=== PATIENT | female | born 1990 | race Caucasian/White ===

== ENCOUNTER → 2024-03-23 | Outpatient (CLI) | payer OTHER, SELFPAY ==
[2024-03-23 10:30] LABS: Erythrocyte Sedimentation Rate 1 mm/hr (0-30)
[2024-03-23 10:33] LABS: Absolute Lymphocyte Count 1.89 X10^3/uL (0.83-4.51); Absolute Neutrophil Count 2.6 X10^3/uL (2.0-7.7); Basophil# 0.03 X10^3/uL; Basophil% 0.6 % (0-1); Eosinophil# 0.04 X10^3/uL; Eosinophils% 0.8 % (0-5); Hemoglobin 13.7 g/dL (12.0-15.0); Lymphocyte # 1.89 X10^3/ul (0.83-4.51); Lymphocyte % 38.8 % (19-41); Mean Corp Hgb Conc 33.4 g/dL (32-36); Mean Corpuscular Hgb 28.5 pg (27.0-32.0); Mean Corpuscular Volume 85.4 fL (81-99); Mean Platelet Vol. 9.3 fl (6.2-12.0); Monocyte# 0.29 X10^3/uL; NRBC Flagged by Analyzer 0 % (0-5); Neutrophil # 2.61 X10^3/uL (2.7-7.7); Neutrophil % 53.6 % (47-70); Platelet Count 303 K/mm3 (150-450); RBC Distribution Width CV 12.4 % (11.6-14.6); RBC Distribution Width SD 38.5 fl (35.1-43.9); White Blood Count 4.9 K/mm3 (4.4-11.0)
[2024-03-23 11:32] LABS: ALB/GLOB Ratio 1.2 RATIO (0.9-2.4); AST(SGOT) 11 U/L (15-37); Alanine Aminotransfer ALT/SGPT 29 U/L (13-56); Albumin, Serum 3.9 g/dL (3.2-5.0); Alkaline Phosphatase 47 U/L (45-117); Anion Gap 8 (5-15); BUN 10 mg/dL (7-18); BUN/Creat Ratio 12.3 RATIO (10-20); CRP < 2.90 mg/L (0.0-3.0); Calcium,Total 9.2 mg/dL (8.5-10.1); Chloride 109 mmol/L (98-107); Creatinine, Serum 0.81 mg/dL (0.55-1.02); EST Glomerular Filtration Rate 87 mL/min (>60); Est Glom Filt Rate - Afr Amer 105 mL/min (>60); Free T3 3.2 pg/mL (2.18-3.98); Globulin 3.3 g/dL (2.2-4.2); Glucose 103 mg/dL (74-106); LDH 169 U/L (84-246); Potassium 4.1 mmol/L (3.5-5.1); Protein, Total 7.2 g/dL (6.4-8.2); Sodium Level 139 mmol/L (136-145); T4 Free Direct 1.16 ng/dL (0.76-1.46)
[2024-03-26 17:08] LABS: ACCA 11 units (0-90); ALCA 4 units (0-60); AMCA 3 units (0-100); Albumin 3.9 g/dL (2.9-4.4); Alpha-1-Globulins 0.2 g/dL (0.0-0.4); Alpha-2-Globulins 0.7 g/dL (0.4-1.0); Cytoplasmic Ab (C-ANCA) <1:20 titer (Neg:<1:20); Endomysial Antibody IgA Negative (Negative); Gamma Globulin 0.8 g/dL (0.4-1.8); Immunoglobulin A 174 mg/dL (87-352); Immunoglobulin E 8 IU/mL (6-495); Immunoglobulin G 876 mg/dL (586-1602); Immunoglobulin M 96 mg/dL (26-217); PROEL- TOTAL PROTEIN 6.6 g/dL (6.0-8.5); Perinuclear Ab (P-ANCA) <1:20 titer (Neg:<1:20); gASCA 24 units (0-50); t-Transglutaminase IgA <2 U/mL (0-3)
[2024-03-27 10:14] LABS: Anti-Centromere B Ab <0.2 AI (0.0-0.9); Anti-Chromatin <0.2 AI (0.0-0.9); Anti-Jo <0.2 AI (0.0-0.9); Anti-Scleroderma-70 AB <0.2 AI (0.0-0.9); Anti-dsDNA Ab 1 IU/mL (0-9); Beef <0.10 kU/L (Class 0); Chocolate <0.10 kU/L (Class 0); Codfish <0.10 kU/L (Class 0); Corn <0.10 kU/L (Class 0); Egg, Whole <0.10 kU/L (Class 0); Milk (Cow) <0.10 kU/L (Class 0); Mussels <0.10 kU/L (Class 0); Peanut <0.10 kU/L (Class 0); Pork <0.10 kU/L (Class 0); RNP Ab <0.2 AI (0.0-0.9); SJOGREN'S Anti-SS-A test < 0.2 AI (0.0-0.9); SJOGREN'S Anti-SS-B test < 0.2 AI (0.0-0.9); Salmon <0.10 kU/L (Class 0); Shrimp <0.10 kU/L (Class 0); Smith Ab <0.2 AI (0.0-0.9); Soybean <0.10 kU/L (Class 0); Tuna <0.10 kU/L (Class 0); Wheat <0.10 kU/L (Class 0)
== END | disposition home or self-care (01) ==
LOC: VSLAB 08:40
PROVIDERS: PCP Family Medicine
DX: K58.9 Irritable bowel syndrome, unspecified (principal); K63.8219 Small intestinal bacterial overgrowth, unspecified
CPT/HCPCS: 36415; 80053; 82784; 82785; 83516; 83615; 84165; 84439; 84443; 84481; 85025; 85652; 86003; 86005; 86036; 86140; 86225; 86235; 86255; 86256; 86334; 86671

== ENCOUNTER → 2024-03-24 | Outpatient (CLI) | payer OTHER, SELFPAY ==
[2024-03-29 03:13] LABS: Giardia Lamblia, Stool EIA Negative (Negative); Pancreatic Elastase, Fecal > 800 (>200)
[2024-04-02 19:07] LABS: Calprotectin, Stool 9 ug/g (0-120); Fats, Neutral Normal (.); Fats, Total Increased (.)
== END | disposition home or self-care (01) ==
LOC: MFPLAB 08:03
PROVIDERS: PCP Family Medicine
DX: K58.9 Irritable bowel syndrome, unspecified (principal); K63.8219 Small intestinal bacterial overgrowth, unspecified
CPT/HCPCS: 82653; 82705; 83630; 83993; 87329; 87506

== ENCOUNTER → 2024-05-12 | Outpatient (CLI) | payer OTHER, SELFPAY | END | disposition home or self-care (01) | LOC: LABSPEC 15:02 | PROVIDERS: PCP Family Medicine; Referring Provider Nurse Practitioner Women's Health; Visit Provider Nurse Practitioner Women's Health | DX: N89.8 Other specified noninflammatory disorders of vagina (principal) | CPT/HCPCS: 87070; 87205 ==

== ENCOUNTER → 2024-05-18 | Outpatient (CLI) | payer OTHER, SELFPAY ==
--- NOTE | 2024-05-18 11:07 | NM_ITS ---
CLINICAL: 33-year-old female with history of early satiety. SEMI-SOLID PHASE 99m Tc SULFUR COLLOID GASTRIC EMPTYING STUDY COMPARISON: None available FINDINGS: The patient was administered 1.1 mCi of 99m Tc sulfur colloid mixed with oatmeal and consumed per os. Image acquisitions in the anterior-posterior projections were obtained for 60 minutes. There is prompt visualization of the stomach. There is no gastroesophageal reflux identified. The T ? linear fit was calculated to be 55.78 minutes, (Normal: 12-56 minutes). NM/Gastric Emptying Study IMPRESSION: 1. UPPER LIMITS OF NORMAL 99m Tc sulfur colloid semi-solid phase (oatmeal) gastric emptying imaging examination. A. There is normal semi-solid phase gastric emptying compared to normal controls. (Graeme et al, J Nucl Med Tech 38: 186, 2010). Electronically Signed: Peter Ritter DO at 7:47 EST ,
--- OUTSIDE RECORDS SUMMARY | 2024-05-18 11:32 | XMS RPT_ITS | CCD ---
Author Organization [facility] Care Team Providers Care Restaurant Shift Leader Name Role Phone Kartik, Nelly Unavailable Unavailable No Doctor Assigned, Nodr Unavailable Unavail able Kartik, Nelly Unavailable Unavailable No Doctor Assigned, Nodr Unavailable Unavail able Kartik, Nelly Unavailable Unavailable No Doctor Assigned, Nodr Unavailable Unavail able Kartik, Nelly Unavailable Unavailable Kartik, Nelly Unavailable Unavailable No Doctor Assigned, Nodr Unavailable Unavail able Kartik, Nelly Unavailable Unavailable No Doctor Assigned, Nodr Unavailable Unavail able Kartik, Nelly Unavailable Unavailable Kartik, Nelly Unavailable Unavailable No Doctor Assigned, Nodr Unavailable Unavail able Kartik, Nelly Unavailable Unavailable Kartik, Nelly Unavailable Unavailable No Doctor Assigned, Nodr Unavailable Unavail able Kartik, Nelly Unavailable Unavailable No Doctor Assigned, Nodr Unavailable Unavail able Kartik, Nelly Unavailable Unavailable No Doctor Assigned, Nodr Unavailable Unavail able Kartik, Nelly Unavailable Unavailable Kartik, Nelly Unavailable Unavailable No Doctor Assigned, Nodr Unavailable Unavail able Kartik, Nelly Unavailable Unavailable Kartik, Nelly Unavailable Unavailable No Doctor Assigned, Nodr Unavailable Unavail able Kartik, Nelly Unavailable Unavailable No Doctor Assigned, Nodr Unavailable Unavail able Kartik, Nelly Unavailable Unavailable No Doctor Assigned, Nodr Unavailable Unavail able Kartik, Nelly Unavailable Unavailable No Doctor Assigned, Nodr Unavailable Unavail able Kartik, Nelly Unavailable Unavailable No Doctor Assigned, Nodr Unavailable Unavail able Kartik, Nelly Unavailable Unavailable No Doctor Assigned, Nodr Unavailable Unavail able Kartik, Nelly Unavailable Unavailable Kartik, Nelly Unavailable Unavailable No Doctor Assigned, Nodr Unavailable Unavail able Kartik, Nelly Unavailable Unavailable No Doctor Assigned, Nodr Unavailable Unavail able Kartik, Nelly Unavailable Unavailable Kartik, Nelly Unavailable Unavailable No Doctor Assigned, Nodr Unavailable Unavail able Kartik, Nelly Unavailable Unavailable No Doctor Assigned, Nodr Unavailable Unavail able No Doctor Assigned, Nodr Unavailable Unavail able Kartik, Nelly Unavailable Unavailable Kartik, Nelly Unavailable Unavailable Kartik, Nelly Unavailable Unavailable No Doctor Assigned, Nodr Unavailable Unavail able Katrin Pearson Primary Care Provider Carole Mancuso Unavailable Unavailable None, No PCP Unavailable Unavailable None, No PCP Unavailable Unavailable Unavailable Unavailable Carole Mancuso DO Unavailable Unavailable None, No PCP Unavailable Unavailable [place] Katrin RUSSELL Primary Care Provider Unavailable Unavailable Ms. Jackie Mattson Attending Unavaila ble PCP, Pt States None Referring Unavailable CELE HENRYM, NUMERICAL CONTROL TOOL PROGRAMMER NIKKI DHAVAL Attending Unava ilable FRIED, CNM, NUMERICAL CONTROL TOOL PROGRAMMER NIKKI DHAVAL Referring Unava ilable FRIED, CNM, NUMERICAL CONTROL TOOL PROGRAMMER NIKKI DHAVAL Attending Unava ilable FRIED CNM, NUMERICAL CONTROL TOOL PROGRAMMER NIKKI DHAVAL Referring Unava ilable MICHELE THORNTON Attending Unavailable PCP, Pt States None Referring Unavailable Silvano Andino MD Mounir Primary Care Pro vider Unavailable Primary Care Provider UnavailNIKKI Muñiz Attending Unavailable SANJAY, SILVANO RDAHA MOUNIR Primary Care Kemi vailable SANJAY, SILVANO RADHA MOUNIR Referring Kemi vailable SANJAY, SILVANO RADHA MOUNIR Primary Care Kemi vailable SANJAY, SILVANO RADHA MOUNIR Admitting Kemi vailable Lengl DENVERC, Dell Benjamín Unavailable SANJAY, SILVANO H Primary Care Unavailable CONI LERNER Attending Unavailable SANJAY, SILVANO H Primary Care Unavailable ABBY SRINIVASAN Attending Unavailable SANJAY, SILVANO RADHA MOUNIR Primary Care Kemi vailable JACKIE WOODALL Attending Unavailable SANJAY, SILVANO RADHA MOUNIR Primary Care Kemi vailable SANJAY, SILVANO RADHA MOUNIR Attending Kemi vailable SANJAY, SILVANO RADHA MOUNIR Primary Care Kemi vailable SANJAY, SILVANO RADHA MOUNIR Attending Kemi vailable SANJAY, SILVANO RADHA MOUNIR Attending Kemi vailable SANJAY, SILVANO RADHA MOUNIR Primary Care Kemi vailable SANJAY, SILVANO RADHA MOUNIR Attending Kemi vailable SILVANO ANDINO Primary Care Kemi vailable JACKIE WOODALL Attending Unavailable SILVANO ANDINOUNRACQUEL Primary Care Kemi vailable SILVANO ANDINO Attending Kemi vailable SILVANO ANDINO Primary Care Kemi vailable Allergies Allergy Classification Reported Allergen(s) Allergy Type Date of Onset Reaction(s) Facility Amoxicillin / Clavulanate (3 sources) Amoxicillin / Clavulanate; Translations: [Augmentin] Drug Allergy 0 Diarrhea [facility] (7 sources) amoxicillin / clavulanate; Translations: [Augmentin] Drug Allergy Diarrhea [facility] (1 source) No Known Allergies; Translations: [No Known Allergies] Propensity to adverse reactions to drug (disorder) [facility] (19 sources) Amoxicillin / Clavulanate; Translations: [AMOXICILLIN-POT CLAVULANATE] Drug Allergy 0 Diarrhea [facility] Medications Current Medications Medication Drug Class(es) Dates Sig (Normalized) Sig (Original) clotrimazole 10 mg/ml topical cream (10 sources) Azole Antifungal Start: 09-18-2023 End: 09-17-2024 clotrimazole (LOTRIMIN) 1 % cream Indications: Vaginal discharge Apply topically 2 (two) times a day . 30 g 09/18/2023 09/17/2024 Active 21 day ethinyl estradiol 0.503728 mg/hr / etonogestrel 0.005 mg/hr vaginal system (11 sources) Progestin, Estrogen Start: 10-20-2023 End: 10-19-2024 etonogestreL-ethiny l estradioL (NUVARING) 0.12-0.015 mg/24 hr vaginal ring Indications: control counseling Insert vaginally and leave in place for 3 consecutive weeks, then remove for 1 week. . 1 each 12 10/20/2023 10/19/2024 Active Start: 06-17-2019 End: 07-24-2021 etonogestrel-ethinyl estradi ol (NUVARING) 0.12-0.015 mg/24 hr vaginal ring Indications: control counseling Insert vaginally and leave in place for 3 consecutive weeks, then remove for 1 week. . 3 each 3 06/17/2019 07/24/2021 Discontinued Ethinyl Estradiol / Ferrous fumarate / Norethindrone (13 sources) Estrogen Start: 06-17-2023 take 1 tablet by mouth once daily norethindrone-e.estradioL-iron (Lo Loestrin Fe) 1 mg-10 mcg (24)/10 mcg (2) tablet Indications: Encounter for surveillance of contraceptive pills Take 1 tablet by mouth once daily. 28 tablet 11 06/17/2023 Active Start: 02-20-2023 Lo Loestrin Fe 1 mg-10 mcg (24)/10 mcg (2) Tab 02/20/2023 Active Start: 02-20-2023 take 1 tablet by shade th once daily Lo Loestrin Fe 1 mg-10 mcg (24)/10 mcg (2) tablet Take 1 tablet by mouth once daily. 0 02/20/2023 Active Start: 02-20-2023 Lo Loestrin Fe 1 mg-10 mcg (24)/10 mcg (2) Tab Ethinyl Estradiol / norgestimate (4 sources) Progestin, Estrogen Start: 02-09-2024 take 1 tablet by mouth once daily norgestimate-ethinyl estradioL (Rts-Ch-Zlfxlmkr) 0.18/0.215/0.25 mg-25 mcg per tablet Take 1 (one) tablet by mouth daily . 30 tablet 11 02/09/2024 Active Start: 12-09-2023 End: 02-07-2024 take 1 tablet by mouth once daily norgestimate-ethinyl estradioL (Xkg-Rt-Tnetinau) 0.18/0.215/0.25 mg-25 mcg per tablet Take 1 (one) tablet by mouth daily . 30 tablet 1 12/09/2023 02/07/2024 Discontinued (Reorder (Suppress CancelRx Message to Pharmacy)) Start: 12-09-2023 take 1 tablet by shade th once daily norgestimate-ethinyl estradioL (Ecz-Fv-Avfeland) 0.18/0.215/0.25 mg-25 mcg per tablet Take 1 (one) tablet by mouth daily . 30 tablet 1 12/09/2023 Active Start: 11-13-2023 End: 12-06-2023 take 1 tablet by mouth once daily norgestimate-ethinyl estradioL (Fwg-Fy-Gjkefrny) 0.18/0.215/0.25 mg-25 mcg per tablet Take 1 (one) tablet by mouth daily . 30 tablet 1 11/13/2023 12/06/2023 Discontinued (Reorder (Suppress CancelRx Message to Pharmacy)) sertraline 25 mg oral tablet (4 sources) Serotonin Reuptake Inhibitor Start: 07-24-2021 End: 03-23-2022 take 1 tablet by mouth once daily sertraline (ZOLOFT) 25 MG tablet Indications: Anxiety with depression Take 1 (one) tablet (25 mg total) by mouth daily . 90 tablet 1 09/24/2021 03/23/2022 Active Completed/Discontinued Medications Medication Drug Class(es) Dates Sig (Normalized) Sig (Original) docusate sodium 100 mg oral capsule (3 sources) Start: 03-01-2020 take 1 capsule by mouth twice daily as needed Docusate Sodium 100 MG Oral Capsule TAKE 1 CAPSULE TWICE DAILY NEEDED. Quantity: 60 Refills: 6 [place] DOCarole Start : 01-Mar-2020 Active drospirenone / Ethinyl Estradiol (2 sources) Progestin, Estrogen End: 09-18-2023 take 1 tablet by mouth once daily, then take 3 tablets by mouth once drospirenone-ethiny l estradioL (SHAI) 3-0.03 mg per tablet Take 1 (one) tablet by mouth daily . 0 09/18/2023 Discontinued hydrocortisone 25 mg/ml topical cream (1 source) Corticosteroid Start: 10-29-2022 End: 05-02-2023 hydrocortisone (ANUSOL-HC) 2.5 % rectal cream Indications: Hemorrhoids, unspecified hemorrhoid type Insert into the rectum 2 (two) times a day . 30 g 0 10/29/2022 05/02/2023 Discontinued levonorgestrel 0.131187 mg/hr intrauterine system (8 sources) Progestin, Progestin-containin g Intrauterine Device Liletta (52 MG) 19.5 MCG/DAY IUD Quantity: 0 Refills: 0 Ordered: 15-Dec-2020 DO Active levonorgestreL ( LILETTA) 20.1 mcg/24 hrs (6 yrs) 52 mg IUD IUD 1 each by Intrauterine route once . 0 Active ondansetron 4 mg oral tablet (3 sources) Serotonin-3 Receptor Antagonist Start: 03-29-2020 take 1 tablet by mouth every six hours as needed for nausea Ondansetron HCl - 4 MG Oral Tablet TAKE 1 TABLET Every 6 hours PRN nausea Quantity: 20 Refills: 3 , Carole Start : 29-Mar-2020 Active PNV Plus Multivitamin 27-1 MG Oral Tablet (1 source) Start: 03-01-2020 take 1 tablet by mouth once daily PNV Plus Multivitamin 27-1 MG Oral Tablet TAKE 1 TABLET DAILY. Quantity: 30 Refills: 11 , Start : 01-Mar-2020 Active PNV Plus Multivitamin 27-1 MG TABS (2 sources) Start: 03-01-2020 PNV P hossein Multivitamin 27-1 MG TABS TAKE 1 TABLET DAILY. Quantity: 30 Refills: 11 Start : 01-Mar-2020 Active PNV Plus Multivitamin TABS (2 sources) PNV Plu s Multivitamin TABS Refills: 0 Active PNV Plus Multivitamin TABS (1 source) PNV Plu s Multivitamin TABS Refills: 0 DO Active Problems Active Problems Problem Classification Problem Date Documented Da te Episodic/Chronic Acute bronchitis (2 sources) Acute bronchitis, unspecified; Translations: [Acute bronchitis, unspecified] Onset: 02-09-2024 Episodic Other complications of (3 sources) Placental abnormality; Translations: [Abnormal placental ultrasound] Episodic Other complications of (3 sources) Nausea and vomiting; Translations: [Unspecified vomiting of , unspecified as to episode of care or not applicable] Episodic Other female genital disorders (12 sources) Pain in female genitalia on intercourse; Translations: [Unspecified dyspareunia] Onset: 09-18-2023 09-18-2023 Chronic Other female genital disorders (2 sources) Unspecified dyspareunia; Translations: [Unspecified dyspareunia] Onset: 09-18-2023 Chronic Other gastrointestinal disorders (8 sources) Chronic constipation; Translations: [Constipation, unspecified] Episodic Other non-traumatic joint disorders (3 sources) Pain in wrist; Translations: [Pain in joint, forearm] Episodic Other and delivery including normal (14 sources) Delivery normal; Translations: [ care status] Episodic Comment on above: 10/03/2020-39 weeks, vaginal, male, #7 15oz 01/10/2018_40weeks_Female_7# 4oz; Other skin disorders (1 source) Skin tag; Translations: [Skin tag] Episodic Other upper respiratory infections (2 sources) Acute sinusitis, unspecified; Translations: [Acute sinusitis, unspecified] Onset: 02-18-2024 Episodic Residual codes; unclassified (1 source) Gestation period, 20 weeks; Translations: [20 weeks gestation of ] Episodic Residual codes; unclassified (1 source) Gestation period, 27 weeks; Translations: [ with 27 completed weeks gestation] Episodic Viral infection (6 sources) Other specified viral infection; Translations: [Disease caused by 2019nCoV] Episodic Past or Other Problems Problem Classification Problem Date Documented Date Episodic/Chronic Abdominal pain (13 sources) Abdominal discomfort; Translations: [Unspecified abdominal pain] Onset: 10-29-2022 10-29-2022 Episodic Administrative/social admission (18 sources) Multigravida; Translations: [Patient encounter status] Onset: 09-18-2023 09-18-2023 Episodic Anxiety disorders (20 sources) Mixed anxiety and depressive disorder; Translations: [Other specified anxiety disorders] Onset: 05-21-2019 Resolved: 10-29-2022 05-21-2019 Chronic Contraceptive and procreative management (15 sources) Intrauterine contraceptive device in situ; Translations: [Surveillance of intrauterine contraceptive device] Onset: 06-17-2019 06-17-2023 Episodic Comment on above: 11/28/2020; MICHEAL; E Codes: Natural/environment (16 sources) Insect bite - wound; Translations: [Bitten or stung by nonvenomous insect and other nonvenomous arthropods, initial encounter] Onset: 07-24-2021 Episodic Genitourinary symptoms and ill-defined conditions (2 sources) Other symptoms and signs involving the genitourinary system; Translations: [Other symptoms and signs involving the genitourinary system] Onset: 10-29-2022 Episodic Hemorrhoids (12 sources) Hemorrhoids; Translations: [Unspecified hemorrhoids] Onset: 10-29-2022 05-02-2023 Episodic Immunizations and screening for infectious disease (20 sources) Patient encounter status; Translations: [Screening examination for venereal disease] Onset: 06-17-2019 06-17-2019 Episodic Other and unspecified benign neoplasm (12 sources) Pigmented skin lesion ; Translations: [Melanocytic nevi, unspecified] Onset: 05-01-2023 05-01-2023 Episodic Other female genital disorders (12 sources) Vaginal discharge; Translations: [Other specified noninflammatory disorders of vagina] Onset: 09-18-2023 09-18-2023 Episodic Other female genital disorders (2 sources) Other specified noninflammatory disorders of vagina; Translations: [Other specified noninflammatory disorders of vagina] Onset: 09-18-2023 Episodic Other lower respiratory disease (12 sources) Rib pain; Translations: [Pleurodynia] Onset: 05-02-2023 05-02-2023 Episodic Other screening for suspected conditions (not mental disorders or infectious disease) (10 sources) Urine test negative; Translations: [ examination or test, negative result] Onset: 06-17-2023 06-17-2023 Episodic Residual codes; unclassified (1 source) Gestation period, 12 weeks; Translations: [ state, incidental] Episodic Unclassified (14 sources) Patient encounter status; Translations: [Routine gynecological examination] Onset: 05-17-2019 05-17-2019 Unclassified (8 sources) Finding of menstrual bleeding; Translations: [Menstruation] Comment on above: Onset age 15 years; NEGATED: Highlighted row has not occurred!Residual codes; unclassified (13 sources) Disease Episodic Results Test Name Value Interpretation Reference Range Facility Hepatitis B Surface Antigeno n 09-19-2023 HBV surface Ag Ql (S) Negative Negative [facility] Hepatitis B Surface antibody on 09-19-2023 HBV surface Ab Ql (S) Negative Negative [facility] Mumps Antibody, IgGon 2023 Interpretation and review of laboratory results Abnormal [facility] MuV IgG Ql (S) Positive Abnormal Negative [facility] Assay performed usin g Diasorin CLIA methodology. [facility] No Panel Informationon 09-18 Interpretation and review of laboratory results Normal [facility] Test performed using Nilsa BERTO immunoassay system [facility] Rubeola Antibody, IgGon MeV IgG Ql (S) Immune [facility] Assay performed usin gladys Diasorin CLIA methodology. [facility] Vaginitis DNA ProbesOrdered By: Radha Crowe on 09-19-2023 Ken sp DNA Probe+sig amp Ql (Vag fld) Negative Negative [facility] G. vaginalis DNA Probe+sig amp Ql (Vag fld) Negative Negative [facility] Interpretation and review of laboratory results Normal [facility] T. vaginalis DNA Probe+sig amp Ql (Vag fld) Refer to Trichomonas Amplified RNA Result Negative [facility] Cervical AND or Vaginal cyto logy studyon 06-17-2023 Cytology Cervical or vaginal smear or scraping study Pathology report.total SEE COMMENT Gynecologic Cytology Case: [id number] Authorizing Provider: Nikki Stevens MD Collected: 06/17/2023 1508 Ordering Location: [facility] Received: 06/17/2023 1508 Office Building First Screen: LO Rodriguez Pathologist: Ansley Woo MD Specimen: ThinPrep Liquid-Based Pap-Imaging System Screen, CERVIX, DIAGNOSTIC Cytology study comment SEE COMMENT Squamous and/or Glandular Abnormality A. THINPREP PAP CERVIX, DIAGNOSTIC - Specimen Adequacy Satisfactory for evaluation; endocervical/transformati on zone component is present General Categorization Epithelial cell abnormality- squamous cell, see interpretation. Descriptive Interpretation Atypical squamous cells of undetermined significance (ASC-US) - Cervix Laboratory comment SEE COMMENT Slide(s) initially screened by LO Rodriguez at [address] [id number] By the signature on this report, the individual or group listed as making the Final Interpretation/Diagnosis certifies that they have reviewed this case. This specimen has been analyzed by the [employer] Imaging System ([email or web address] an automated imaging and review system, which assists the laboratory in evaluating cells on ThinPrep Pap tests. Following automated imaging, selected trotter from every slide were reviewed by a senior javascript engineer and/or pathologist. Cervical cytology is a screening procedure primarily for squamous cancers and precursors and has associated false-negative and false-positives results as evidenced by published data. Your patient's test should be interpreted in this context, together with the patient's history and clinical findings. Regular sampling and follow-up of unexplained clinical signs and symptoms are recommended to minimize false negative results. LAB AP HPV HR Always (all interpretations) LAB AP HPV GENOTYPE QUESTION Yes Normal [facility] HPV 16 and 18 and 31+33+35+3 9+45+51+52+56+58+59+66+68 DNA Pnl (Cvx)on 06-17-2023 HPV 16 DNA JIM+probe Ql (Unsp spec) Negative Normal Negative [facility] Comment on above: Order Comment: Testi ng for high-risk (HR) types of human papilloma virus (HPV) is performed by the Nilsa berto HPV Test. The berto HPV Test is a qualitative polymerase chain reaction that amplifies DNA of HPV16, HPV18, and 12 other high-risk HPV types (31, 33, 35, 39, 45, 51, 52, 56, 58, 59, 66, and 68) associated with cervical cancer and its precursor lesions. A positive result indicates the presence of HPV DNA due to one or more of the 14 genotypes: 16, 18, 31, 33, 35, 39, 45, 51, 52, 56, 58, 59, 66, and 68. Negative results indicates HPV DNA concentrations are undectectable or below the pre-set threshold for detection. False negative results may be associated with unoptimized sampling. A negative HR HPV result does not exclude the possibility of future cytologic HSIL or underlying CIN2-3 or cancer. This test is approved by the [place] Food and Drug Administration. Results of this test should be interpreted in conjunction with the patient Pap test results. Please refer to ASCCP current quidelines for the use of HPV DNA testing, result interpretation, and patient management. The performance of this test was verified by the [facility] at [facility]. The lab is certified under the Clinical Laboratory Amendments of 1988 (CLIA 88) as qualified to perform high complexity clinical laboratory testing. PERFORMING LAB LOCATIONS [facility]: [address] [place] [address] Performed By: #### 7 1432-9 #### DL Horvath ([id number]) [facility] ([facility]) [address] [place] [address] HPV 18 DNA JIM+probe Ql (Unsp spec) Negative Normal Negative [facility] Comment on above: Order Comment: Testi ng for high-risk (HR) types of human papilloma virus (HPV) is performed by the Nilsa berto HPV Test. The berto HPV Test is a qualitative polymerase chain reaction that amplifies DNA of HPV16, HPV18, and 12 other high-risk HPV types (31, 33, 35, 39, 45, 51, 52, 56, 58, 59, 66, and 68) associated with cervical cancer and its precursor lesions. A positive result indicates the presence of HPV DNA due to one or more of the 14 genotypes: 16, 18, 31, 33, 35, 39, 45, 51, 52, 56, 58, 59, 66, and 68. Negative results indicates HPV DNA concentrations are undectectable or below the pre-set threshold for detection. False negative results may be associated with unoptimized sampling. A negative HR HPV result does not exclude the possibility of future cytologic HSIL or underlying CIN2-3 or cancer. This test is approved by the [place] Food and Drug Administration. Results of this test should be interpreted in conjunction with the patient Pap test results. Please refer to ASCCP current quidelines for the use of HPV DNA testing, result interpretation, and patient management. The performance of this test was verified by the [facility] at [facility]. The lab is certified under the Clinical Laboratory Amendments of 1988 (CLIA 88) as qualified to perform high complexity clinical laboratory testing. PERFORMING LAB LOCATIONS [facility]: [address] [place] [address] Performed By: #### 7 1432-9 #### DL Horvath ([id number]) [facility] ([facility]) [address] [place] [address] HPV 31+33+35+39+45+51+5 2+56+58+59+66+68 DNA JIM+probe Ql (Genital specimen) Negative Normal Negative [facility] Comment on above: Order Comment: Testi ng for high-risk (HR) types of human papilloma virus (HPV) is performed by the Nilsa berto HPV Test. The berto HPV Test is a qualitative polymerase chain reaction that amplifies DNA of HPV16, HPV18, and 12 other high-risk HPV types (31, 33, 35, 39, 45, 51, 52, 56, 58, 59, 66, and 68) associated with cervical cancer and its precursor lesions. A positive result indicates the presence of HPV DNA due to one or more of the 14 genotypes: 16, 18, 31, 33, 35, 39, 45, 51, 52, 56, 58, 59, 66, and 68. Negative results indicates HPV DNA concentrations are undectectable or below the pre-set threshold for detection. False negative results may be associated with unoptimized sampling. A negative HR HPV result does not exclude the possibility of future cytologic HSIL or underlying CIN2-3 or cancer. This test is approved by the [place] Food and Drug Administration. Results of this test should be interpreted in conjunction with the patient Pap test results. Please refer to ASCCP current quidelines for the use of HPV DNA testing, result interpretation, and patient management. The performance of this test was verified by the [facility] at [facility]. The lab is certified under the Clinical Laboratory Amendments of 1988 (CLIA 88) as qualified to perform high complexity clinical laboratory testing. PERFORMING LAB LOCATIONS [facility]: [address] [place] [address] Performed By: #### 7 1432-9 #### DL Horvath ([id number]) [facility] ([facility]) [address] [place] [address] Human papilloma virus high-risk genotypes panel Negative Normal Negative [facility] Comment on above: Order Comment: Testi ng for high-risk (HR) types of human papilloma virus (HPV) is performed by the Nisla berto HPV Test. The berto HPV Test is a qualitative polymerase chain reaction that amplifies DNA of HPV16, HPV18, and 12 other high-risk HPV types (31, 33, 35, 39, 45, 51, 52, 56, 58, 59, 66, and 68) associated with cervical cancer and its precursor lesions. A positive result indicates the presence of HPV DNA due to one or more of the 14 genotypes: 16, 18, 31, 33, 35, 39, 45, 51, 52, 56, 58, 59, 66, and 68. Negative results indicates HPV DNA concentrations are undectectable or below the pre-set threshold for detection. False negative results may be associated with unoptimized sampling. A negative HR HPV result does not exclude the possibility of future cytologic HSIL or underlying CIN2-3 or cancer. This test is approved by the US Food and Drug Administration. Results of this test should be interpreted in conjunction with the patient Pap test results. Please refer to AS[facility]P current quidelines for the use of HPV DNA testing, result interpretation, and patient management. The performance of this test was verified by the [facility] at [facility]. The lab is certified under the Clinical Laboratory Amendments of 1988 (CLIA 88) as qualified to perform high complexity clinical laboratory testing. PERFORMING LAB LOCATIONS [facility]: [address] [place] [address] Performed By: #### [id number] #### DL Horvath ([id number]) [facility] ([facility]) [address] [place] [address] LOG WASHER - Office Visiton LOG WASHER - Office Visit Diagnoses/Problems Assessed Contraception management (V25.9) (Z30.9) Orders Start: Tri-Sprintec 0.18/0.215/0.25 MG-35 MCG Oral Tablet; TAKE 1 TABLET BY MOUTH EVERY DAY PAP FUR GRADER, Cytology; Status:In Progress - Specimen/Data Collected,Retrospective Authorization; Done: 19Dec2022 Last Menstrual Period (LMP): : IUD PAP - Site : CERVICAL Cytology Order : ThinPrep PAP, Screening, HPV CoTest - Include Genotyping Provider Impressions IUD removed without difficulty Rx OCP RTO 1 year and PRN Chief Complaint Patient is here for yearly exam. Patient does self breast exams regularly. LMP IUD PT WOULD LIKE TO DISCUSS DIFFERENT CONTROL. PT IS INTERESTED IN BC PILLS. PT IS HAVING CRAMPING AND LONG PERIODS THAT LAST ALMOST TWO WEEKS. History of Present IllnessPt. presents for annual exam. Up to date on pap. Wants IUD removed --> OCP. Happy with ortho tri-cyclen in the past Denies any other c/o or concerns Review of Systems Constitutional: no fever and no chills. Active Problems Problems Chronic constipation (564.00) (K59.09) Contraception management (V25.9) (Z30.9) COVID-19 (079.89) (U07.1) Encounter for routine checking of intrauterine contraceptive device (IUD) (V25.42) (Z30.431) External hemorrhoids (455.3) (K64.4) exam (V24.2) (Z39.2) Right wrist pain (719.43) (M25.531) Screening for STD (sexually transmitted disease) (V74.5) (Z11.3) Urine test negative (V72.41) (Z32.02) Past Medical History Problems History of IUD (intrauterine device) in place (V45.51) (Z97.5) 11/28/2020; MICHEAL History of Menstruation Onset age 15 years History of Normal vaginal delivery (650) (O80) 10/03/2020-39 weeks, vaginal, male, #7 15oz 01/10/2018_40weeks_Female _7# 4oz History of Women's annual routine gynecological examination (V72.31) (Z01.419) 06/2019-NEGATIVE 06/27/2017-NEGATIVE Surgical History Problems History of Intrauterine device placement 11/28/2020: Micheal Family History Mother No pertinent family history Father Family history of diabetes mellitus (V18.0) (Z83.3) Social History Problems Does not use illicit drugs (V49.89) (Z78.9) Never a smoker No alcohol use Sexually active Allergies Medication Augmentin Diarrhea; Recorded By: Radha Hogan; 03/29/2020 3:47:46 PM Current Meds Medication NameInstruction Liletta (52 MG) 19.5 MCG/DAY IUD Vitals Vital Signs Recorded: 19Dec2022 01:24PM Uuyvdxnx071 Vmyhxboqv66 Height5 ft 3 in Tmezje625 lb 3.71 oz BMI Kqxcpvyrhh60.38 kg/m2 BSA Calculated1.68 LMPIUD Physical Exam Constitutional: Alert and in no acute distress. Well developed, well nourished Pulmonary: No respiratory distress Chest: Breasts: normal appearance, no nipple discharge and no skin changes, palpation of breasts and axillae: no palpable mass and no axillary lymphadenopathy and sexual maturation normal Genitourinary: external genitalia: normal and sexual maturation: normal Vagina: normal. Cervix: Normal. Psychiatric: alert and oriented x 3., affect normal to patient baseline, mood: appropriate and judgment and insight: intact Procedure IUD Removal Procedure: removal of an unknown IUD. Indications for the procedure include patient requested. Risks, benefits and alternatives were discussed with the patient. Written consent was obtained prior to the procedure and is detailed in the patient's record. Procedure Note: IUD removed without difficulty. Post-Procedure: Patient Status: the patient tolerated the procedure well. Complications: there were no complications. Patient Instructions: contraception plans discussed (See Orders Section). Signatures Electronically signed by : Nikki Henry, JUDI-CNM CLINICAL PRACTITIONER-NUMERICAL CONTROL TOOL PROGRAMMER; Dec 19 2022 1:55PM EST (Author) Normal [employer]works Initial Visit (General Surge ry)on 11-25-2022 Initial Visit (General Surgery) Diagnoses/Problems Chronic constipation (564.00) (K59.09) External hemorrhoids (455.3) (K64.4) Provider Impressions Ms. Schafer is a 32-year-old female with minimally enlarged internal hemorrhoids and a small external perianal hemorrhoidal skin tag. I do not think that these are large enough to warrant surgical intervention, although we did discuss excisional hemorrhoidectomy as an option. We discussed that the long-term treatment of hemorrhoids includes keeping bowel movements soft and regular and avoiding straining. To achieve this, I recommend adequate daily fiber intake of at least 30g. She has already started taking Metamucil daily, but since she still requires straining with a lot of her bowel movements, she may consider increasing this to twice daily. I have also recommended drinking at least 64 ounces of water daily and avoiding excessive caffeinated beverages. She will follow-up on an as-needed basis. Chief Complaint Hemorrhoids History of Present IllnessMs. Schafer is a 32-year-old female seen by self-referral for evaluation of hemorrhoids. Her chief complaint is having excess perianal tissue. She reports that this is always on the outside, not prolapsing in and out. This began after a 2 years ago. It occasionally gives her some mild hygiene issues and some itching. She has tried a steroid cream but has not seen much benefit from this. She has bowel movements at least once per day. However, she strains with about 40% of her bowel movements. She has started taking Metamucil once daily. She drinks a lot of water throughout the day, but also has a lot of caffeine intake. She denies ever seeing blood in the stool. She has never had a colonoscopy. She has no family history of colon or rectal cancer. Review of Systems Constitutional: no fever, sweats, and chills Cardiovascular: No chest pain or palpitations Respiratory: No cough or shortness of breath Gastrointestinal: + Chronic constipation, excess perianal tissue with occasional perianal itching. No blood in the stool. Genitourinary: no dysuria or urinary frequency Musculoskeletal: no weakness or swelling Integumentary: no rashes Neurological: no confusion Endocrine: no heat or cold intolerance Heme/Lymph: no easy bruising or bleeding Active Problems Chronic constipation (564.00) (K59.09) Contraception management (V25.9) (Z30.9) COVID-19 (079.89) (U07.1) Encounter for routine checking of intrauterine contraceptive device (IUD) (V25.42) (Z30.431) External hemorrhoids (455.3) (K64.4) Assessed By: Michele Thornton (General Surgery); Last Assessed: 28 Nov 2022 exam (V24.2) (Z39.2) Right wrist pain (719.43) (M25.531) Screening for STD (sexually transmitted disease) (V74.5) (Z11.3) Urine test negative (V72.41) (Z32.02) Past Medical History History of IUD (intrauterine device) in place (V45.51) (Z97.5) 11/28/2020; MICHEAL History of Menstruation Onset age 15 years History of Normal vaginal delivery (650) (O80) 10/03/2020-39 weeks, vaginal, male, #7 15oz 01/10/2018_40weeks_Female _7# 4oz History of Women's annual routine gynecological examination (V72.31) (Z01.419) 06/2019-NEGATIVE 06/27/2017-NEGATIVE Surgical History History of Intrauterine device placement 11/28/2020: Micheal Family History No pertinent family history Family history of diabetes mellitus (V18.0) (Z83.3) Social History Does not use illicit drugs (V49.89) (Z78.9) Never a smoker No alcohol use Sexually active Allergies Augmentin Diarrhea; Recorded By: Radha Hogan; 03/29/2020 3:47:46 PM Current Meds Medication NameInstruction Liletta (52 MG) 19.5 MCG/DAY IUD Vitals Vital Signs Recorded: [id number] 03:26PM Heart Rate84 Rnjvrbxg776 Lvknasula05 Height5 ft 3 in Nchfrp345 lb BMI Dacjfmgjuj03.33 kg/m2 BSA Calculated1.68 Tobacco Useb) No Falls Screening (Age 18+)a) No falls within the last year Physical Exam Constitutional: No acute distress, conversant, pleasant Neurologic: alert and oriented Psych: appropriate affect Ears, Nose, Mouth and Throat: mucus membranes moist Pulmonary: No labored breathing Cardiovascular: Regular rate and rhythm Abdomen: Nondistended Rectal: Small external hemorrhoidal skin tag in the anterior and right lateral location. This is noninflamed and not thrombosed. It is not tender on palpation. No other external abnormalities. Anoscopy: Lighted anoscopy was performed in the prone jackknife position with the assistance of my bilingual medical receptionist, Bernarda. This revealed minimally enlarged internal hemorrhoids. These did not appear friable. There was no bleeding on contact with the scope. Musculoskeletal: Moves all extremities, warm, no edema Skin: warm and dry Signatures Electronically signed by : Michele Thornton MD; Nov 28 2022 7:50AM EST (Author) Normal Finalta Tobacco Screening.on 023 Fall risk assessment a) No falls within the last year [facility] Work Phone: Tobacco use status [facility] b) No [facility] Work Phone: [facility]on 03-11-2022 Initial Visit (Orthopaedic Surgery) Diagnoses/Problems Assessed Right wrist pain (719.43) (M25.531) Provider Impressions Assessment: Right wrist pain, possible carpal tunnel syndrome, possible de Quervain's tenosynovitis, possible scaphoid fracture, dorsal ganglion cyst Plan: Today, we discussed all the options above and I would like her to go into a thumb spica brace more consistently especially while at night while sleeping. We discussed MRI of the wrist to check for any scaphoid fracture however we will defer this at this time. She will continue minimal weightbearing for the next month and follow-up then. Chief Complaint NEW) right wrist pain, dorsal cyst with tenderness, pain with resisted extension of the wrist. Onset: 2 months, she did have a foosh but didn?t need medical attention after the injury, other than that no trauma history of surgical history of the right wrist. She denies any treatments to date. XR series of the right wrist performed today. History of Present Illness Patient is here today for evaluation of her right wrist pain that started about 2 months ago. She is a 31-year-old female who mentions playing with her children and falling landing on bilateral outstretched hands. She had pain right away but quickly went away. She did this again about 3 weeks ago again having pain. She has been utilizing a wrist brace off and on for about 2 months. She did notice a ganglion cyst on the dorsum of the wrist just this past week. She has some numbness and tingling but does mention carpal tunnel syndrome during her pregnancies. Pain is worse when putting pressure on the palm. She rates her pain as a 7/10 and describes it as aching and sharp. She is not utilizing Tylenol which does seem to help. Review of Systems Constitutional: no fever, no chills, not feeling tired, no recent weight gain and no recent weight loss. ENT: no nosebleeds. Cardiovascular: no chest pain. Respiratory: no shortness of breath and no cough. Gastrointestinal: no abdominal pain, no nausea, no vomiting and no diarrhea. Musculoskeletal: no arthralgias. Integumentary: no rashes and no skin wound. Neurological: no headache. Psychiatric: no depression and no sleep disturbances. Endocrine: no muscle weakness and no muscle cramps. Hematologic/Lymphatic: no swollen glands and no tendency for easy bruising. All other systems have been reviewed and are negative for complaint. Active Problems Problems Chronic constipation (564.00) (K59.09) Contraception management (V25.9) (Z30.9) COVID-19 (079.89) (U07.1) Encounter for routine checking of intrauterine contraceptive device (IUD) (V25.42) (Z30.431) exam (V24.2) (Z39.2) Right wrist pain (719.43) (M25.531) Screening for STD (sexually transmitted disease) (V74.5) (Z11.3) Urine test negative (V72.41) (Z32.02) Past Medical History Problems History of IUD (intrauterine device) in place (V45.51) (Z97.5) 11/28/2020; LUCYJOELLEN History of Menstruation Onset age 15 years History of Normal vaginal delivery (650) (O80) 10/03/2020-39 weeks, vaginal, male, #7 15oz 01/10/2018_40weeks_Female _7# 4oz History of Women's annual routine gynecological examination (V72.31) (Z01.419) 06/2019-NEGATIVE 06/27/2017-NEGATIVE Surgical History Problems History of Intrauterine device placement 11/28/2020: Liletta Family History Mother No pertinent family history Father Family history of diabetes mellitus (V18.0) (Z83.3) Social History Problems Does not use illicit drugs (V49.89) (Z78.9) Never a smoker No alcohol use Sexually active Allergies Augmentin Diarrhea; Recorded By: Radha Hogan; 03/29/2020 3:47:46 PM Current Meds Medication NameInstruction Liletta (52 MG) 19.5 MCG/DAY IUD Vitals Vital Signs Recorded: [id number] 02:24PM Bpzsizdtnlf70.8 F Height5 ft 2 in Dfriwo047 lb BMI Gkvyunqqgk03.79 kg/m2 BSA Calculated1.65 Tobacco Useb) No Falls Screening (Age 18+)b) One or more falls in the last year Physical Exam Right upper extremity is neurovascular intact full range of motion of the wrist with pain at extremes of extension and flexion. There is a small ganglion cyst palpated on the dorsum of the wrist negative erythema or drainage freely mobile. There is mild tenderness at the snuffbox, negative tenderness at the distal radius and ulna full pronation and supination. Negative Tim with a mild tenderness to palpation of the first dorsal compartment Results/Data X-rays were performed today see radiologist report for official readings. Independent review was performed today and upon my review there is some suspicion for a very nondisplaced scaphoid fracture, otherwise no signs of osteoarthritis or dislocations Signatures Electronically signed by : Jackie Mattson PA-C; Mar 11 2022 2:45PM EST (Author) [facility]-11-2022 XR Wrist - bilateral 3 Views Please click on the link to view the study images Normal [facility] 300 Work Phone: XR Wrist - bilateral 3 Views Normal [facility] 300 Work Phone: Tobacco Screening.on 022 Fall risk assessment b) One or more falls in the last year [facility] 300 Work Phone: Tobacco use status [facility] b) No [facility] 300 Work Phone: WRIST COMPLT MIN 3 VIEWSon 0 03-11-2022 WRIST COMPLT MIN 3 VIEWS Patient Name: STEFANIA SCHAFER STUDY: Right wrist 3 views. INDICATION: right wrist pain M25.531: Right wrist pain. COMPARISON: None. ACCESSION NUMBER(S): [id number] ORDERING CLINICIAN: JACKIE MATTSON FINDINGS: No acute fracture or malalignment. No significant degenerative changes. Soft tissues are within normal limits. IMPRESSION: 1. Unremarkable right wrist radiographs. Electronically signed by: LARA DOBBINS MD Normal [facility] Comprehensive metabolic 2000 panelon 07-24-2021 Albumin [Mass/Vol] 4.5 g/dL 3.2 - 5.2 g/dL [facility] ALP [Catalytic activity/Vol] 104 U/L 40 - 140 U/L [facility] ALT [Catalytic activity/Vol] 52 U/L 14 - 65 U/L [facility] Anion gap [Moles/Vol] 11 mmol/L 10 - 20 mmol/L [facility] AST [Catalytic activity/Vol] 16 U/L 0 - 45 U/L [facility] Bilirubin [Mass/Vol] 0.4 mg/dL 0.0 - 1.3 mg/dL [facility] Calcium [Mass/Vol] 9.5 mg/dL 8.4 - 10. 2 mg/dL [facility] Chloride [Moles/Vol] 106 mmol/L 98 - 108 mmol/L [facility] Creatinine [Mass/Vol] 0.62 mg/dL 0.40 - 1.10 [facility] GFR/1.73 sq M.predicted CKD-EPI (S/P/Bld) [Vol rate/Area] 123 >=60 mL/min/1.73 m2 [facility] Glucose [Mass/Vol] 91 mg/dL 65 - 99 mg/dL [facility] HCO3 [Moles/Vol] 27 mmol/L 21 - 32 mmol/L [facility] Interpretation and review of laboratory results Abnormal [facility] Potassium [Moles/Vol] 4.5 mmol/L 3.5 - 5.1 mmol/L [facility] Protein [Mass/Vol] 7.7 g/dL 6.0 - 8.0 g/dL [facility] Sodium [Moles/Vol] 139 mmol/L 135 - 145 mmol/L [facility] Urea nitrogen [Mass/Vol] 15 mg/dL 8 - 25 mg/dL [facility] Urea nitrogen/Creatinine [Mass ratio] 24.2 mg/mg High [facility] The eGFR should be u sed for monitoring renal function only and not for medication dosing. [facility] No Panel Informationon 07-24 [facility] TSH DL <= 0.005 mIU/L Qnon 0 07-24-2021 Interpretation and review of laboratory results Normal [facility] TSH Qn 1.43 m[IU]/L [facility] LMPon 12-15-2020 Last menstrual period start date [facility] [facility] [address] [employer] Work Phone: GC + Chlamydia By Amplified Detectionon 11-28-2020 C. trachomatis rRNA JIM+probe Ql (Unsp spec) Negative Negative [employer] [facility] [address] [employer] Work Phone: N. gonorrhoeae rRNA JIM+probe Ql (Unsp spec) Negative Negative [facility] [address] [employer] Work Phone: Comment on above: SOURCE: Urine IO HCG, Urine Test on 11-28-2020 HCG ( test) Ql (U) Negative Normal [employer] [facility] [address] [employer] Work Phone: Cult, Urineon 03-29-2020 Bacteria identified Cx Nom (U) PATIENT: STEFANIA SCHAFER LOCATION: [facility]#: [id number] : 89 AGE: SEX: F ORDERED BY: CAROLE MANCUSO SOURCE: URINE COLLECTED: 03/29/20 15:41 ANTIBIOTICS AT [facility].: RECEIVED : 03/30/20 02:47 SITE: Clean Catch/Voided R E S U L T S URINE CULTURE,BACTERIAL FINAL 03/30/20 20:25 NO SIGNIFICANT GROWTH. [facility] [address] Work Phone: GC + Chlamydia By Amplified Detectionon 03-29-2020 C. trachomatis rRNA JIM+probe Ql (Unsp spec) Negative Negative [facility] [address] [place] Work Phone: N. gonorrhoeae rRNA JIM+probe Ql (Unsp spec) Negative Negative [facility] [address] [place] Work Phone: Comment on above: SOURCE: Urine Hepatitis B Surface Antigeno n 03-29-2020 Hepatitis B Surface Antigen Non-Reactive See Below [facility] [address] [place] Work Phone: Comment on above: SOURCE: Reference Ra nge: NONREACTIVE Biotin interference may cause falsely decreased results. Patients taking a Biotin dose of up to 5 mg/day should refrain from taking Biotin for 24 hours before sample collection. Providers may contact their local laboratory for further information. SOURCE: Reference Ra nge: NONREACTIVE HIV Ag/Ab screen is performed using the [employer] HIV Ag/Ab Combo assay which detects the presence of HIV p24 antigen as well as antibodies to HIV-1 (Group M and O) and HIV-2. SOURCE: Reference Ra nge: NONREACTIVE Results from patients taking biotin supplements or receiving high-dose biotin therapy should be interpreted with caution due to possible interference with this test. Providers may contact their local laboratory for further information. Laboratory - Blood bankon ABO group Nom (Bld) [facility] [address] [place] Work Phone: Comment on above: NA Blood group antibody screen Ql Negative [facility] [address] [place] Work Phone: Comment on above: NA Rh immune globulin screen (Bld) [Interp] Positive [facility] [address] [place] Work Phone: Comment on above: NA No Panel Informationon 03-29 96.4 % [facility] [address] [place] Work Phone: 0.4 % [facility] [address] [place] Work Phone: 3.2 % [employer] [facility] [address] [employer] Work Phone: Comment on above: HGB A2 values may be falsely elevated in the presence of HGB S. SEE COMMENT [employer] [address] [employer] Phone: Comment on above: Normal Path Review-HGB Identificati onon 03-29-2020 Path Review-HGB Identification [employer] [facility] [employer] Work Phone: Comment on above: By her/his signature above, the Pathologist listed as making the final interpretation certifies that she/he has personally reviewed this case. Rubella IgG Antibodyon 03-29 Rubella virus IgG IA Ql Positive [employer] Work Phone: Comment on above: SOURCE: INTERPRETATI VE COMMENT NEGATIVE: No IgG antibodies specific to Rubella detected. It is likely that the patient has not had a previous exposure to Rubella through infection or vaccination. Alternatively, the patient may have been exposed to Rubella but a failure to respond may indicate immunodeficiency. EQUIVOCAL:Equivocal results; obtain additional sample for retesting. POSITIVE: IgG antibody to Rubella detected. This may indicate that the patient was exposed to Rubella through infection or vaccination.The interpretation of serological tests should take into accountthe immunological status of the patient. Test results forpatients, including immunocompromised patients, neonates, andpediatric patients, reflect their capacity to respondimmunologically to the virus as well as their exposure to thepathogen. Patients treated with IVIG may demonstrate alteredresults in serological assays. SYPHILIS SCREENING WITH REFL EXon 03-29-2020 T. pallidum IgG+IgM IA Ql (S) Non-Reactive See Below [employer] Work Phone: Comment on above: SOURCE: Reference Ra nge: NONREACTIVENo significant level of Treponema pallidum antibody detected. Repeat testing in 2 to 4 weeks may be considered if early infection or incubating syphilis infection is suspected. Comprehensive Metabolic Pane saul 11-04-2019 Albumin [Mass/Vol] 4.3 g/dL 3.2 - 5.2 g/dL [facility] ALP [Catalytic activity/Vol] 75 U/L 40 - 140 U/L [facility] ALT [Catalytic activity/Vol] 27 U/L 14 - 65 U/L [facility] Anion gap [Moles/Vol] 9 mmol/L Low 10 - 20 mmol/L [facility] AST [Catalytic activity/Vol] 13 U/L 0 - 45 U/L [facility] Bilirubin [Mass/Vol] 0.4 mg/dL 0 - 1.3 mg/dL [facility] Calcium [Mass/Vol] 8.7 mg/dL 8.4 - 10. 2 mg/dL [facility] Chloride [Moles/Vol] 107 mmol/L 98 - 108 mmol/L [facility] Creatinine [Mass/Vol] 0.58 mg/dL 0.4 - 1.1 mg/dL [facility] GFR/1.73 sq M predicted among non-blacks MDRD (S/P/Bld) [Vol rate/Area] The eGFR should be used for monitoring renal function only and not for medication dosing. [facility] GFR/1.73 sq M.predicted CKD-EPI (S/P/Bld) [Vol rate/Area] 128 >=60 mL/min/1.73 m2 [facility] Glucose [Mass/Vol] 86 mg/dL 65 - 99 mg/dL [facility] HCO3 [Moles/Vol] 29 mmol/L 21 - 32 mmol/L [facility] Interpretation and review of laboratory results Abnormal [facility] Potassium [Moles/Vol] 3.9 mmol/L 3.5 - 5.1 mmol/L [facility] Protein [Mass/Vol] 7.6 g/dL 6 - 8 g/dL [facility] Sodium [Moles/Vol] 141 mmol/L 135 - 145 mmol/L [facility] Urea nitrogen [Mass/Vol] 8 mg/dL 8 - 25 mg/dL [facility] Urea nitrogen/Creatinine [Mass ratio] 13.8 mg/mg [facility] Lipid Panelon 05-17-2019 Cholesterol [Mass/Vol] 150 mg/dL 100 - 199 mg/dL [facility] Comment on above: National Cholesterol Education Program Guidelines: Cholesterol Desirable: <200 mg/dL Borderline High: 200-239 mg/dL High: greater than or equal to 240 mg/dL Cholesterol in HDL [Mass/Vol] 61 mg/dL 40 - 59 [facility] Comment on above: National Cholesterol Education Program Guidelines: HDL Cholesterol Low: <40 mg/dL Near Optimal: 40-59 mg/dL High: greater than or equal to 60 mg/dL Cholesterol in LDL [Mass/Vol] 73 mg/dL 10 - 130 mg/dL [facility] Comment on above: National Cholesterol Education Program Guidelines: LDL Cholesterol Optimal: <100 mg/dL Near Optimal/above Optimal: 100-129 mg/dL Borderline High: 130-159 mg/dL High: 160-189 mg/dL Very High: greater than or equal to 190 mg/dL Cholesterol non HDL [Mass/Vol] 89 mg/dL [facility] Comment on above: National Cholesterol Education Program Guidelines: NON HDL Cholesterol Desirable: <130 mg/dL Borderline High: 130-159 mg/dL High: 160-189 mg/dL Very High: > or = 190 mg/dL Cholesterol.total/C holesterol in HDL [Mass ratio] 2.5 {ratio} ratio [facility] Comment on above: Female Cholesterol/H DL Ratio: Average risk: 4.4 1/2 average risk: 3.3 2 x average risk: 7.1 Triglyceride [Mass/Vol] 81 mg/dL 30 - 150 mg/dL [facility] Comment on above: National Cholesterol Education Program Guidelines: Triglyceride Normal: <150 mg/dL Borderline High: 150-199 mg/dL High: 200-499 mg/dL Very High: greater than or equal to 500 mg/dL TSH with Reflex Free T4on Interpretation and review of laboratory results Normal [facility] TSH Qn 1.10 m[IU]/L [facility] Placenta Pathology Request - NO EXAMon 01-13-2018 Placenta Pathology Request - NO EXAM Collected Normal [facility] Comment on above: Performed By: #### 2 [id number] ####JOELLE ZopSqlt1783 [place] [address] Hematocriton 01-11-2018 Hematocrit (HCT) 35.1 % Low 36.0-48.0 [facility] Comment on above: Order Comment: first post- day Performed By: #### 2 [id number] ####JOELLE NvxHgbn9819 [place] [address] Hemoglobinon 01-11-2018 Hemoglobin mass conc (Bld) 11.9 g/dL Low 12.0-16.0 [facility] Comment on above: Order Comment: first post- day Performed By: #### 2 [id number] ####JOELLE OrtizWkrFwbz7253 [place] [address] Auto Diffon 01-09-2018 Basophils Auto #/vol (Bld) 0.0 E3/mcL Normal 0.0-0.2 [facility] Comment on above: Order Comment: Order Added by Discern Expert. Performed By: #### 2 [id number] ####JOELLE OrtizGhrDyzg8532 [place] [address] Basophils/100 WBC Auto (Bld) 0.2 % Normal 0.0-2.0 [facility] Comment on above: Order Comment: Order Added by Discern Expert. Performed By: #### 2 844514 ####JOELLE OrtizFbbFvhc4675 [place] [address] Eos Absolute 0.1 E3/mcL Normal 0.0-0.7 [facility] Comment on above: Order Comment: Order Added by Discern Expert. Performed By: #### 2 [id number] ####JOELLE OrtizArwVaex8457 [place] [address] Eosinophils/100 leukocytes 0.6 % Normal 0.0-11.0 [facility] Comment on above: Order Comment: Order Added by Discern Expert. Performed By: #### 2 105027 ####JOELLE OrtizPpkZymp3889 [place] [address] Lymphocytes 3.4 E3/mcL Normal 1.2-3.4 [facility] Comment on above: Order Comment: Order Added by Discern Expert. Performed By: #### 2 794704 ####JOELLE AeaWdbq4964 [place] [address] Lymphocytes/100 leukocytes 23.2 % Normal 20.0-55.0 [facility] Comment on above: Order Comment: Order Added by Discern Expert. Performed By: #### 2 025540 ####JOELLE OrtizUtuCgpx3111 [place] [address] [place] Absolute 1.0 E3/mcL High 0.0-0.7 [facility] Comment on above: Order Comment: Order Added by Discern Expert. Performed By: #### 2 284894 ####JOELLE OrtizHiuYlpm6226 [place] [address] Monocytes/100 leukocytes 7.0 % Normal 0.0-10.0 [facility] Comment on above: Order Comment: Order Added by Discern Expert. Performed By: #### 2 576115 ####JOELLE Floreso[address]25 [place] [address] Neutro Absolute 10.3 E3/mcL High 1.4-6.5 [facility] Comment on above: Order Comment: Order Added by Discern Expert. Performed By: #### 2 685028 ####JOELLE OrtizVooQuap9656 [place] [address] Neutro Auto 69.0 % Normal 37.0-75.0 [facility] Comment on above: Order Comment: Order Added by Discern Expert. Performed By: #### 2 [id number] ####JOELLE Floreso[address]25 [place] [address] CBC w/ Auto Diffon 8 Erythrocyte distribution width Auto Ratio (RBC) 13.6 % Normal 11.5-14.5 [facility] Comment on above: Performed By: #### 2 852293 ####JOELLE Floreso1025 [place] [address] Erythrocytes (RBC) 4.34 E6/mcL Normal 3.90-5.40 [facility] Comment on above: Performed By: #### 2 446336 ####JOELLE Floreso[address]25 [place] [address] Hematocrit (HCT) 38.0 % Normal 36.0-48.0 [facility] Comment on above: Performed By: #### 2 711048 ####JOELLE OrtizEoiJsez4506 [place] [address] Hemoglobin mass conc (Bld) 13.1 g/dL Normal 12.0-16.0 [facility] Comment on above: Performed By: #### 2 353319 ####JOELLE OrtizVzbSbza4844 [place] [address] MCH 30.2 pg Normal 27.0-31.0 [facility] Comment on above: Performed By: #### 2 607482 ####JOELLE Floreso1025 [place] [address] MCHC mass conc (RBC) 34.6 g/dL Normal 33.0-37.0 [facility] Comment on above: Performed By: #### 2 274043 ####JOELLE [address] [place] [id number] MCV 87.4 fL Normal 78.0-100.0 [facility] Comment on above: Performed By: #### 2 826491 ####JOELLE [address] [place] [id number] Platelet mean volume (PMV) 8.6 fL Normal 7.4-11.0 [facility] Comment on above: Performed By: #### 2 006670 ####JOELLE [address] [place] [id number] Platelets 268 E3/mcL Normal 130-400 [facility] Comment on above: Performed By: #### 2 658247 ####JOELLE [address] [place] [id number] WBC (Leukocytes) 14.8 E3/mcL High 3.6-11.0 [facility] Comment on above: Performed By: #### 2 261969 ####JOELLE [address] [place] [id number] Group B Strep PCRon 12-16-19 18 Group B Strep PCR Negative Normal [facility] Comment on above: Order Comment: Order Added by Discern Expert. Performed By: #### 2 161772 ####JOELLE [address] [place] [address] C Urineon 11-30-2017 C Urine Final Report: Normal skin bob isolated Normal [facility] Comment on above: Performed By: #### 2 [id number] ####JOELLE [address] [place] [address] Auto Diffon 09-30-2017 Basophils Auto #/vol (Bld) 0.0 E3/mcL Normal 0.0-0.2 [facility] Comment on above: Order Comment: Order Added by Discern Expert. Performed By: #### 2 138257 ####JOELLE OrtizSqzZugi2761 [place] [address] Basophils/100 WBC Auto (Bld) 0.2 % Normal 0.0-2.0 [facility] Comment on above: Order Comment: Order Added by Discern Expert. Performed By: #### 2 898626 ####JOELLE OrtizTtnUrui2118 [place] [address] Eos Absolute 0.1 E3/mcL Normal 0.0-0.7 [facility] Comment on above: Order Comment: Order Added by Discern Expert. Performed By: #### 2 606728 ####JOELLE OrtizZyqZmtl8078 [place] [address] Eosinophils/100 leukocytes 1.0 % Normal 0.0-11.0 [facility] Comment on above: Order Comment: Order Added by Discern Expert. Performed By: #### 2 920497 ####JOELLE OrtizQdtVgbg1888 [place] [address] Lymphocytes 2.3 E3/mcL Normal 1.2-3.4 [facility] Comment on above: Order Comment: Order Added by Discern Expert. Performed By: #### 2 492157 ####JOELLE OrtizQxfOvlj6646 [place] [address] Lymphocytes/100 leukocytes 20.5 % Normal 20.0-55.0 [facility] Comment on above: Order Comment: Order Added by Discern Expert. Performed By: #### 2 764584 ####JOELLE OrtizDmmXjoh9751 [place] [address] [place] Absolute 0.8 E3/mcL High 0.0-0.7 [facility] Comment on above: Order Comment: Order Added by Discern Expert. Performed By: #### 2 547769 ####JOELLE RhsUbuh8716 [place] [address] Monocytes/100 leukocytes 7.2 % Normal 0.0-10.0 [facility] Comment on above: Order Comment: Order Added by Discern Expert. Performed By: #### 2 774440 ####JOELLE OrtizBjwBkhb5582 [place] [address] Neutro Absolute 7.8 E3/mcL High 1.4-6.5 [facility] Comment on above: Order Comment: Order Added by Discern Expert. Performed By: #### 2 348582 ####JOELLE OrtizRpyLwqm0415 [place] [address] Neutro Auto 71.1 % Normal 37.0-75.0 [facility] Comment on above: Order Comment: Order Added by Discern Expert. Performed By: #### 2 315799 ####JOELLE [address] [place] [address] CBC w/ Auto Diffon 8 Erythrocyte distribution width Auto Ratio (RBC) 13.8 % Normal 11.5-14.5 [facility] Comment on above: Performed By: #### 2 520631 ####JOELLE [address] [place] [id number] Erythrocytes (RBC) 4.05 E6/mcL Normal 3.90-5.40 [facility] Comment on above: Performed By: #### 2 244392 ####JOELLE [address] [place] [id number] Hematocrit (HCT) 35.5 % Low 36.0-48.0 [facility] Comment on above: Performed By: #### 2 901301 ####JOELLE [address] [place] [address] Hemoglobin mass conc (Bld) 12.2 g/dL Normal 12.0-16.0 [facility] Comment on above: Performed By: #### 2 992898 ####JOELLE StfAkvj8280 [place] [address] MCH 30.3 pg Normal 27.0-31.0 [facility] Comment on above: Performed By: #### 2 786610 ####JOELLE OrtizPpePkbe2258 [place] [address] MCHC mass conc (RBC) 34.5 g/dL Normal 33.0-37.0 [facility] Comment on above: Performed By: #### 2 940368 ####JOELLE OrtizIwhXint9212 [place] [address] MCV 87.8 fL Normal 78.0-100.0 [facility] Comment on above: Performed By: #### 2 918055 ####JOELLE [address] [place] [address] Platelet mean volume (PMV) 7.1 fL Low 7.4-11.0 [facility] Comment on above: Performed By: #### 2 361106 ####JOELLE [address] [place] [address] Platelets 256 E3/mcL Normal 130-400 [facility] Comment on above: Performed By: #### 2 808615 ####JOELLE [address] [place] [address] WBC (Leukocytes) 11.0 E3/mcL Normal 3.6-11.0 [facility] Comment on above: Performed By: #### 2 783095 ####JOELLE [address]25 [place] [address] Gest Scr Glu 1 Hron 10-01-19 18 Glucose mass conc 102 mg/dL Normal 70-140 [facility] Comment on above: Performed By: #### 2 300018 ####JOELLE [address]25 [place] [address] US After 1st Trime steron 08-22-2017 After 1st Trimester Exam Date/Time:08/22/2017 14:32 ESTReason for Exam: DATES AND ANATOMY;Standard AnatomyReportUS After 1st TrimesterCLINICAL STATEMENT: . Standard anatomy. [facility] January 09, 2018.COMPARISON: None.TECHNIQUE: Transabdominal ultrasound of the pelvis.FINDINGS:Based on the EDC of January 09, 2018, the EGA is 20 weeks, 0 days.There is a single living intrauterine in cephalic presentationshowing a heart rate of 147 bpm by M-mode Doppler. The placenta is posteriorand does not form a previa. Amniotic fluid volume appears subjectivelyadequate. The cervical length is estimated at 3.0 cm and the cervix is closed. anatomic survey: The intracranial structures appear unremarkable. Thelateral ventricle measures 5 mm, cisterna magna 3 mm, and transverse cerebellardiameter 19 mm, correlating with 19 weeks, 2 days. A four-chamber heart isshown. The stomach, kidneys, urinary bladder, three-vessel cord, and cordinsertion appear normal. Transverse and longitudinal views of the spine show noobvious dysraphism. profile appears unremarkable. measurements:BPD: 4.7 cm, 20 weeks 1 day.HC: 17.3 cm, 19 weeks 6 days.AC: 13.9 cm, 19 weeks 2 days.FL: 3.0 cm, 19 weeks 2 days.The composite age is 19 weeks, 4 days +/- 10 days.The estimated weight is 290 g (+/- 43 g), approximately 10 ounces.IMPRESSION:1. Living intrauterine with a composite age of 19 weeks, 4 days.Exam Date/Time:08/22/2017 14:32 ESTReport2. The anatomic survey showed no abnormalities. FINAL REPORT Dictated: 08/22/2017 3:54 pm Shady Gómez DOSigned (Electronic Signature): 08/22/2017 3:54 pmSigned by: Shady Gómez DO Technologist: [facility] IGP W/hpv Rfx [id number] 07-03 Diagnosis: See Ref Lab Report Normal [facility] Comment on above: Order Comment: Order Added by Discern Expert. Performed By: #### 2 [id number] ####JOELLE HyjMejs9280 [place] [address] RPRon 07-02-2017 RPR Ql Non-Reactive Normal Non-Reactive [facility] Comment on above: Performed By: #### 2 070578 ####JOELLE KdeCuyt0759 [place] [address] C Urineon 06-29-2017 C Urine Final Report: Rare g rowth of Normal skin bob isolated [facility] Comment on above: Performed By: #### 2 [id number] ####JOELLE Microbiology Znculmilzl6960 [place] [address] Hep Bs Agon 06-28-2017 BSA (Body Surface Area) Negative Normal Negative [facility] Comment on above: Result Comment: Perf ormed At: [facility] [address] [id number] Vincent PhD Ph:[phone] Performed By: #### 2 [id number] ####JOELLE Send Outs Gbcutbecxn6566 [place] [address] ABO/Rh Echoon 06-27-2017 ABO/Rh E Interp... Positive Normal [facility] Comment on above: Performed By: #### 8 [id number] ####JOELLE Blood Bank Djwzqmezjt3418 [place] [address] Antibody Screen Cap...on Screen Interp... Negative Normal [facility] Comment on above: Performed By: #### 8 [id number] ####JOELLE Blood Bank Fshxpnuvmb5446 [place] [address] Auto Diffon 06-27-2017 Basophils Auto #/vol (Bld) 0.0 E3/mcL Normal 0.0-0.2 [facility] Comment on above: Order Comment: Order Added by Discern Expert. Performed By: #### 2 571002 ####JOELLE LviClpm0305 [place] [address] Basophils/100 WBC Auto (Bld) 0.3 % Normal 0.0-2.0 [facility] Comment on above: Order Comment: Order Added by Discern Expert. Performed By: #### 2 003366 ####JOELLE WhjCfsb7257 [place] [address] Eos Absolute 0.1 E3/mcL Normal 0.0-0.7 [facility] Comment on above: Order Comment: Order Added by Discern Expert. Performed By: #### 2 084111 ####JOELLE UteWikv8633 [place] [address] Eosinophils/100 leukocytes 0.7 % Normal 0.0-11.0 [facility] Comment on above: Order Comment: Order Added by Discern Expert. Performed By: #### 2 305641 ####JOELLE EcmDelw7165 [place] [address] Lymphocytes 2.8 E3/mcL Normal 1.2-3.4 [facility] Comment on above: Order Comment: Order Added by Discern Expert. Performed By: #### 2 295717 ####JOELLE UfnGlhn7526 [place] [address] Lymphocytes/100 leukocytes 29.9 % Normal 20.0-55.0 [facility] Comment on above: Order Comment: Order Added by Discern Expert. Performed By: #### 2 108585 ####JOELLE OrtizHalTeew9659 [place] [address] [place] Absolute 0.6 E3/mcL Normal 0.0-0.7 [facility] Comment on above: Order Comment: Order Added by Discern Expert. Performed By: #### 2 015835 ####JOELLE Floreso[address] [place] [address] Monocytes/100 leukocytes 6.6 % Normal 0.0-10.0 [facility] Comment on above: Order Comment: Order Added by Discern Expert. Performed By: #### 2 540143 ####JOELLE Floreso[address] [place] [address] Neutro Absolute 5.8 E3/mcL Normal 1.4-6.5 [facility] Comment on above: Order Comment: Order Added by Discern Expert. Performed By: #### 2 937361 ####JOELLE [address] [place] [address] Neutro Auto 62.5 % Normal 37.0-75.0 [facility] Comment on above: Order Comment: Order Added by Discern Expert. Performed By: #### 2 272745 ####JOELLE OrtizUgiTfmv0294 [place] [address] CBC w/ Auto Diffon 7 Erythrocyte distribution width Auto Ratio (RBC) 12.6 % Normal 11.5-14.5 [facility] Comment on above: Performed By: #### 2 530571 ####JOELLE OrtizDhtDbxy2320 [place] [address] Erythrocytes (RBC) 4.46 E6/mcL Normal 3.90-5.40 [facility] Comment on above: Performed By: #### 2 395314 ####JOELLE OrtizBjqQcud9368 [place] [address] Hematocrit (HCT) 38.2 % Normal 36.0-48.0 [facility] Comment on above: Performed By: #### 2 022357 ####JOELLE OritzVslIfoo2918 [place] [address] Hemoglobin mass conc (Bld) 13.0 g/dL Normal 12.0-16.0 [facility] Comment on above: Performed By: #### 2 611478 ####JOELLE [address] [place] [address] MCH 29.2 pg Normal 27.0-31.0 [facility] Comment on above: Performed By: #### 2 352842 ####JOELLE [address] [place] [address] MCHC mass conc (RBC) 34.1 g/dL Normal 33.0-37.0 [facility] Comment on above: Performed By: #### 2 408650 ####JOELLE [address] [place] [address] MCV 85.6 fL Normal 78.0-100.0 [facility] Comment on above: Performed By: #### 2 268199 ####JOELLE [address] [place] [address] Platelet mean volume (PMV) 7.4 fL Normal 7.4-11.0 [facility] Comment on above: Performed By: #### 2 712007 ####JOELLE [address] [place] [address] Platelets 296 E3/mcL Normal 130-400 [facility] Comment on above: Performed By: #### 2 656952 ####JOELEL [address] [place] [address] WBC (Leukocytes) 9.2 E3/mcL Normal 3.6-11.0 [facility] Comment on above: Performed By: #### 2 586295 ####JOELLE [address] [place] [address] Chlamydia GC by PCRon 2016 Chlamydia by PCR. Not Detected Normal Not Detected [facility] Comment on above: Result Comment: Xper t CT/NG Assay performance has not been evaluated in patients less than 14 years of age. Performed By: #### 3 [id number] ####JOELLE Kaur SubSection, Gonorrhoeae by PCR Not Detected Normal Not Detected [facility] Comment on above: Result Comment: Xper t CT/NG Assay performance has not been evaluated in patients less than 14 years of age. Performed By: #### 3 [id number] ####JOELLE Misc Micro SubSection, HIV-1/2 Ag/Abon 06-27-2017 HIV-1/2 Ag/Ab Non-Reactive Normal Non-Reactive [facility] Comment on above: Performed By: #### 6 [id number] ####JOELLE Chemistry Manual Jed[address]fze2518 [place] [address] Pathology ([facility])on 06-27-2017 Pathology ([facility]) FINAL GYNECOLOGIC CYTOLOGY [id number] ADEQUACYSatisfactory for EvaluationClinical information indicates , therefore endocervical component isnot applicable.GENERAL CATEGORIZATIONNegative for Intraepithelial Lesion or MalignancyDESCRIPTIVE DIAGNOSISFungi consistent with Ken species.CLINICAL HISTORYSPECIMEN(A ) SCREENING CERVICAL/ENDOCERVICAL LIQUID-BASED PAPPerformed at [facility], [address] [place], [place] [address]Screened by: Signed Out by: XAVIER LUEVANO Consumer Recruiter Reported: 07/02/2017 Normal [facility] Comment on above: Performed By: #### G YSampson ####[facility] [address] [place] [address] Rubella IgG Lvlon 06-27-2017 Rubella IgG Lvl 7.0 (NEG) Normal [facility] Comment on above: Result Comment: <10I U/ml NON REACTIVE: NOT [id number] IU/ml RUBELLA SPECIFIC AB PRESENT, EVALUATEFURTHER TO DETERMINE IMMUNE STATUS >15 IU/ml REACTIVE, IMMUNE Performed By: #### 2 [id number] ####JOELLE AgdRkeh1441 [place] [address] TSHon 06-27-2017 Thyroid stimulating hormone (TSH) 1.69 mIU/m Normal 0.30-5.60 [facility] Comment on above: Performed By: #### 2 [id number] ####JOELLE AnyAgxu6793 [place] [address] Vital Signs Date Time Vital Sign Value Performing Clinician Facility 10-20-2023 10:37-0400 Body height 157.5 cm Silvano Andino MD Work Phone: [facility] 10-20-2023 10:37-0400 Body mass index (BMI) [Ratio] 26.52 kg/m2 Silvano Andino MD Work Phone: [facility] 10-20-2023 10:37-0400 Body temperature 98.6 [degF] Silvano Andino MD Work Phone: [facility] 10-20-2023 10:37-0400 Body weight 65.77 kg Silvano Andino MD Work Phone: [facility] 10-20-2023 10:37-0400 Diastolic blood pressure 83 mm[Hg] Silvano Andino MD Work Phone: [facility] 10-20-2023 10:37-0400 Heart rate 99 /min Silvano Andino MD Work Phone: [facility] 10-20-2023 10:37-0400 Respiratory rate 16 /min Silvano Andino MD Work Phone: [facility] 10-20-2023 10:37-0400 SaO2% (BldA) [Mass fraction] 98 % Silvano Andino MD Work Phone: [facility] 10-20-2023 10:37-0400 Systolic blood pressure 135 mm[Hg] Silvano Andino MD Work Phone: [facility] 09-18-2023 13:57-0500 Diastolic blood pressure 85 mm[Hg] Silvano Andino MD Work Phone: [facility] 09-18-2023 13:57-0500 Heart rate 111 /min Silvano Andino MD Work Phone: [facility] 09-18-2023 13:57-0500 Respiratory rate 98 /min Silvano Andino MD Work Phone: [facility] 09-18-2023 13:57-0500 Respiratory rate 16 /min Silvano Andino MD Work Phone: [facility] 09-18-2023 13:57-0500 Systolic blood pressure 125 mm[Hg] Silvano Andino MD Work Phone: [facility] 09-18-2023 13:52-0500 Body height 157.5 cm Silvano Andino MD Work Phone: [facility] 09-18-2023 13:52-0500 Body mass index (BMI) [Ratio] 26.63 kg/m2 Silvano Andino MD Work Phone: [facility] 09-18-2023 13:52-0500 Body temperature 97.59 [degF] Silvano Andino MD Work Phone: [facility] 09-18-2023 13:52-0500 Body weight 66.04 kg Silvano Andino MD Work Phone: [facility] 09-18-2023 13:52-0500 SaO2% (BldA) [Mass fraction] 98 % Silvano Andino MD Work Phone: [facility] 06-17-2023 14:41-0500 Body height 157.5 cm Nikki Stevens MD Work Phone: [facility] 06-17-2023 14:41-0500 Body mass index (BMI) [Ratio] 27.76 kg/m2 Nikki Stevens MD Work Phone: [facility] 06-17-2023 14:41-0500 Body weight 68.86 kg Nikki Stevens MD Work Phone: [facility] 06-17-2023 14:41-0500 Diastolic blood pressure 70 mm[Hg] Nikki Stevens MD Work Phone: [facility] 06-17-2023 14:41-0500 Systolic blood pressure 128 mm[Hg] Nikki Stevens MD Work Phone: [facility] 05-01-2023 15:11-0400 Body height 157.5 cm Silvano Andino MD Work Phone: [facility] 05-01-2023 15:11-0400 Body mass index (BMI) [Ratio] 27.98 kg/m2 Silvano Andino MD Work Phone: [facility] 05-01-2023 15:11-0400 Body temperature 98.71 [degF] Silvano Andino MD Work Phone: [facility] 05-01-2023 15:11-0400 Body weight 69.4 kg Silvano Andino MD Work Phone: [facility] 05-01-2023 15:11-0400 Diastolic blood pressure 86 mm[Hg] Silvano Andino MD Work Phone: [facility] 05-01-2023 15:11-0400 Heart rate 110 /min Silvano Andino MD Work Phone: [facility] 05-01-2023 15:11-0400 Respiratory rate 16 /min Silvano Andino MD Work Phone: [facility] 05-01-2023 15:11-0400 SaO2% (BldA) [Mass fraction] 98 % Silvano Andino MD Work Phone: [facility] 05-01-2023 15:11-0400 Systolic blood pressure 138 mm[Hg] Silvano Andino MD Work Phone: [facility] 11-25-2022 15:26-0400 Body height 160.02 cm No PCP None [facility] Work Phone: 11-25-2022 15:26-0400 Body mass index (BMI) [Ratio] 25.33 kg/m2 No PCP None [facility] Work Phone: 11-25-2022 15:26-0400 Body surface area Derived from formula 1.68 m2 No PCP None [facility] Work Phone: 11-25-2022 15:26-0400 Body weight 64.86 kg No PCP None [facility] Work Phone: 11-25-2022 15:26-0400 Diastolic blood pressure 76 mm[Hg] No PCP None [facility] Work Phone: 11-25-2022 15:26-0400 Heart rate 84 /min No PCP None [facility] Work Phone: 11-25-2022 15:26-0400 Systolic blood pressure 122 mm[Hg] No PCP None [facility] Work Phone: 03-11-2022 14:24-0400 Body height 157.48 cm No PCP None [facility] [address] Work Phone: 03-11-2022 14:24-0400 Body mass index (BMI) [Ratio] 25.79 kg/m2 No PCP None [facility] [facility] Work Phone: 03-11-2022 14:24-0400 Body surface area Derived from formula 1.65 m2 No PCP None [facility] 300 Work Phone: 03-11-2022 14:24-0400 Body temperature 97.8 [degF] No PCP None [facility] 300 Work Phone: 03-11-2022 14:24-0400 Body weight 63.96 kg No PCP None [facility] 300 Work Phone: 07-24-2021 15:21-0500 Body height 157.5 cm Katrin Carson [facility] Work Phone: [facility] 07-24-2021 15:21-0500 Body mass index (BMI) [Ratio] 26.16 kg/m2 [facility] Work Phone: [facility] 07-24-2021 15:21-0500 Body temperature 98.71 [degF] [facility] [employer] Work Phone: [facility] 07-24-2021 15:21-0500 Body weight 64.86 kg [facility] [employer] Work Phone: [facility] 07-24-2021 15:21-0500 Diastolic blood pressure 85 mm[Hg] [facility] [employer] Work Phone: [facility] 01-11-2022 15:21-0500 Heart rate 101 /min [facility] [employer]OL [employer]GRAMMER Work Phone: [facility] 07-24-2021 15:21-0500 Respiratory rate 16 /min [facility] [employer] Work Phone: [facility] 07-24-2021 15:21-0500 SaO2% (BldA) [Mass fraction] 98 % [facility] [employer] Work Phone: [facility] 07-24-2021 15:21-0500 Systolic blood pressure 116 mm[Hg] [facility] [employer] Work Phone: [facility] 12-15-2020 11:24-0400 Body height 157.48 cm No PCP None [facility] [address] [place] Work Phone: 12-15-2020 11:24-0400 Body mass index (BMI) [Ratio] 25.64 kg/m2 No PCP None [facility] [address] [place] Work Phone: 12-15-2020 11:24-0400 Body surface area Derived from formula 1.64 m2 No PCP None [facility] [address] [place] Work Phone: 12-15-2020 11:24-0400 Body temperature 97.8 [degF] No PCP None [facility] [address] [place] Work Phone: 12-15-2020 11:24-0400 Body weight 63.6 kg No PCP None [facility] [address] [place] Work Phone: 12-15-2020 11:24-0400 Diastolic blood pressure 80 mm[Hg] No PCP None [facility] [address] [place] Work Phone: 12-15-2020 11:24-0400 Systolic blood pressure 114 mm[Hg] No PCP None [facility] [address] [place] Work Phone: 11-28-2020 14:07-0400 Body height 157.48 cm No PCP None [facility] [address] [place] Work Phone: 11-28-2020 14:07-0400 Body mass index (BMI) [Ratio] 26.77 kg/m2 No PCP [facility] [address] [place] Work Phone: 11-28-2020 14:07-0400 Body surface area Derived from formula 1.67 m2 No PCP None [facility] [address] [place] Work Phone: 11-28-2020 14:07-0400 Body temperature 98 [degF] No PCP None [facility] [address] [place] Work Phone: 11-28-2020 14:07-0400 Body weight 66.4 kg No PCP None [facility] [address] [place] Work Phone: 11-28-2020 14:07-0400 Diastolic blood pressure 70 mm[Hg] No PCP None [facility] [address] [place] Work Phone: 11-28-2020 14:07-0400 Systolic blood pressure 112 mm[Hg] No PCP None [facility] [place] Work Phone: 06-23-2020 15:55-0500 BMI (Body Mass Index) 29.52 kg/m2 Carole Mancuso [facility] [address] [place] Work Phone: 06-23-2020 15:55-0500 Body Temperature 97.5 [degF] Carole Mancuso [facility] [address] [place] Work Phone: Comment on above: Method: Temporal 06-23-2020 15:55-0500 Body weight 73.2 kg Carole Mancuso [facility] [address] [place] Work Phone: 06-23-2020 15:55-0500 BP Diastolic 78 mm[Hg] Carole Mancuso [facility] [address] [place] Work Phone: 06-23-2020 15:55-0500 BP Systolic 110 mm[Hg] Carole Mancuso [facility] [address] [place] Work Phone: 06-23-2020 15:55-0500 BSA (Body Surface Area) 1.74 m2 Carole Fields [address] [place] Work Phone: 06-23-2020 15:55-0500 Height 157.48 cm [facility]ole [facility] [address] [place] Work Phone: 05-26-2020 15:12-0500 BMI (Body Mass Index) 27.22 kg/m2 Carole Hansen [place] Work Phone: 05-26-2020 15:12-0500 Body Temperature 97.5 [degF] Carole Holcomb [facility] [address] [place] Work Phone: Comment on above: Method: Temporal 05-26-2020 15:12-0500 Body weight 67.5 kg [facility]ole [facility] [address] [place] Work Phone: 05-26-2020 15:12-0500 BP Diastolic 60 mm[Hg] [facility] [address] [place] Work Phone: Comment on above: Location: LUE; Position: Sitting 05-26-2020 15:12-0500 BP Systolic 120 mm[Hg] [facility] [address] [place] Work Phone: Comment on above: Location: LUE; Position: Sitting 05-26-2020 15:12-0500 BSA (Body Surface Area) 1.69 m2 [facility] [address] [place] Work Phone: 05-26-2020 15:12-0500 Height 157.48 cm Carole Alvarez[facility] [address] [place] Work Phone: 01-10-2020 15:42-0400 BMI (Body Mass Index) 24.16 kg/m2 [facility] 01-10-2020 15:42-0400 Body Temperature 98.01 [degF] [facility] 01-10-2020 15:42-0400 Body weight 59.92 kg [facility] [place] 01-10-2020 15:42-0400 BP Diastolic 81 mm[Hg] [facility] [place] 01-10-2020 15:42-0400 BP Systolic 123 mm[Hg] [facility] 01-10-2020 15:42-0400 Height 157.5 cm [facility] 01-10-2020 15:42-0400 Pulse (Heart Rate) 83 /min [facility] [place] 01-10-2020 15:42-0400 Pulse Oximetry 97 % [facility] [place] 01-10-2020 15:42-0400 Respiratory Rate 16 /min [facility] 06-17-2019 14:30-0500 BMI (Body Mass Index) 24.33 kg/m2 [facility] 06-17-2019 14:30-0500 Body Temperature 98.4 [degF] [facility] 06-17-2019 14:30-0500 Body weight 60.33 kg [facility] 06-17-2019 14:30-0500 BP Diastolic 83 mm[Hg] [facility] 06-17-2019 14:30-0500 BP Systolic 117 mm[Hg] [facility] 06-17-2019 14:30-0500 Height 157.5 cm [facility] 06-17-2019 14:30-0500 Pulse (Heart Rate) 91 /min [facility] 06-17-2019 14:30-0500 Pulse Oximetry 96 % [facility] 06-17-2019 14:30-0500 Respiratory Rate 18 /min [facility] 05-17-2019 14:58-0500 BMI (Body Mass Index) 24.69 kg/m2 [facility] 05-17-2019 14:58-0500 Body Temperature 98.2 [degF] [facility] 05-17-2019 14:58-0500 Body weight 61.24 kg [facility] [place] 05-17-2019 14:58-0500 BP Diastolic 83 mm[Hg] [facility] 05-17-2019 14:58-0500 BP Systolic 118 mm[Hg] [facility] 05-17-2019 14:58-0500 Height 157.5 cm [facility] [place] 05-17-2019 14:58-0500 Pulse (Heart Rate) 84 /min [facility] [place] 05-17-2019 14:58-0500 Pulse Oximetry 98 % [facility] [place] 05-17-2019 14:58-0500 Respiratory Rate 18 /min [facility] [place] Encounters Encounter Date Encounter Type Care Provider Facility Start: 05-14-2024 ambulatory SILVANO KHAN [facility] Ambulatory Start: 03-10-2024 ambulatory SILVANO KHAN [facility] Start: 02-18-2024 End: 02-18-2024 ambulatory SILVANO H [facility] Start: 02-09-2024 End: 02-09-2024 ambulatory SILVANO H [facility] Start: 02-07-2024 End: 02-09-2024 Refill Silvano Andino MD Work Phone: [facility] Start: 12-19-2023 ambulatory SILVANO KHAN [facility] Start: 12-06-2023 Refill Silvano Andino MD Work Phone: [facility] Start: 10-31-2023 End: 10-31-2023 Clinical Support Jackie Woodall LPN [facility] Comment on above: Need for vaccination [Z23] (Primary Dx) Need for vaccination (Primary Dx) Start: 10-20-2023 End: 10-20-2023 Office outpatient visit 15 minutes Silvano Andino MD Work Phone: [facility] Comment on above: control counse evette (Primary Dx) Start: 10-20-2023 End: 10-20-2023 ambulatory SILVANO SEBASTIAN [facility] Ambulatory Start: 09-26-2023 End: 09-26-2023 Clinical Support Jackie Woodall LPN [facility] Comment on above: Need for vaccination [Z23] (Primary Dx) Start: 09-18-2023 End: 09-22-2023 ambulatory SILVANO GARCIA AKNAWAF [facility] Start: 09-18-2023 End: 09-18-2023 Office outpatient visit 25 minutes Silvano Andino MD Work Phone: [facility] Comment on above: Vaginal discharge (P rimary Dx); Dyspareunia in female; Pre-employment examination Start: 09-18-2023 End: 09-18-2023 ambulatory SILVANO ANDINO [facility] Ambulatory Start: 06-17-2023 End: 06-17-2023 ambulatory [facility] Start: 06-17-2023 End: 06-17-2023 Encounter for gynecological examination (general) (routine) without abnormal findings [facility] Start: 06-17-2023 End: 06-17-2023 Patient encounter procedure Nikki Stevens MD Work Phone: [facility] Work Phone: Start: 06-17-2023 End: 06-17-2023 Periodic preventive med est patient 18-39 yrs Nikki Stevens MD Work Phone: [facility] Comment on above: Cervical cancer scre ening (Primary Dx); Encounter for annual routine gynecological examination; Encounter for surveillance of contraceptive pills Start: 05-01-2023 End: 05-01-2023 Patient encounter status Silvano Andino MD Work Phone: [facility] Start: 05-01-2023 End: 05-01-2023 Periodic preventive med est patient 18-39 yrs Silvano Andino MD Work Phone: [facility] Comment on above: Skin mole; Wellness examination; Hemorrhoids, unspecified hemorrhoid type; Rib pain Start: 02-20-2023 ambulatory CNM, DREW HENRY Facility:[id number] Start: 12-19-2022 ambulatory CNM, DREW HENRY Facility:[id number] Start: 11-25-2022 ambulatory MICHELE SIPPEY Facility:[id number] Start: 11-25-2022 Patient encounter procedure No PCP None [facility] Work Phone: Start: 10-29-2022 End: 11-02-[address] [facility] Start: 10-29-2022 End: 11-02-2022 Encounter for general adult medical examination without abnormal findings [facility] Start: 03-13-2022 Chart Update No PCP None [facility] 300 Work Phone: Start: 03-11-2022 Office outpatient ne w 30 minutes No PCP None [facility] 300 Work Phone: Start: 03-11-2022 ambulatory Ms. Jackie Mattson Facility:[id number] Start: 09-24-2021 Refill Katrin washburn [employer] PROGRAMMER Work Phone: [facility] Comment on above: Anxiety with depress ion Start: 07-24-2021 End: 07-24-2021 Office outpatient visit 15 minutes Katrin Pearson CNP Work Phone: [facility] Comment on above: Anxiety with depress ion (Primary Dx); Wellness examination; Bug bite, initial encounter Start: 07-24-2021 End: 07-24-2021 Patient encounter status Katrin Pearson CNP Work Phone: [facility] Start: 12-15-2020 Office outpatient vi sit 10 minutes No PCP None [facility] [address] Work Phone: Start: 07-12-2020 Patient encounter procedure Carole Naif [facility] [address] Work Phone: Start: 07-06-2020 Patient encounter procedure Carole York [facility] [address] [place] Work Phone: Start: 06-23-2020 Patient encounter procedure Carole York [facility] [address] [place] Work Phone: Start: 05-26-2020 Patient encounter procedure Carole York [facility] [address] [place] Work Phone: Start: 04-26-2020 Patient encounter procedure Carole York [facility] [address] [place] Work Phone: Start: 03-29-2020 Patient encounter procedure Carole Naif DO [facility] [address] Work Phone: Start: 03-01-2020 Patient encounter procedure Carole York DO [facility] [address] [place] Work Phone: Start: 01-10-2020 End: 01-10-2020 Patient encounter procedure Katrin Pearson Work Phone: [facility] Comment on above: Skin tag (Primary Dx ) Start: 06-17-2019 End: 06-17-2019 Periodic preventive med est patient 18-39 yrs Katrin Hernandez Lili Work Phone: [facility] Comment on above: Routine gynecologica l examination (Primary Dx); control counseling Start: 05-17-2019 End: 05-17-2019 Initial preventive medicine new pt age 18-39yrs Katrin Pearson Work Phone: [facility] Comment on above: Wellness examination (Primary Dx); Anxiety with depression Start: 05-17-2019 Patient encounter status Yosef Pearson [employer] PROGRAMMER Work Phone: [facility] Start: 01-19-2018 Ambulatory Nelly Kartik Facility:[facility] Start: 01-09-2018 End: 01-11-2018 Evaluation and management of inpatient Nodr No Doctor Assigned Facility:[facility] Start: 01-01-2018 End: 01-02-2018 Ambulatory Nelly Kartik Facility:[facility] Start: 12-25-2017 End: 12-26-2017 Ambulatory Nelly Kartik Facility:[facility] Start: 12-18-2017 End: 12-19-2017 Ambulatory Nelly Kartik Facility:[facility] Start: 12-12-2017 End: 12-13-2017 Ambulatory Nelly Kartik Facility:[facility] Start: 12-12-2017 End: 12-13-2017 Ambulatory Nelly Kartik Facility:[facility] Start: 11-28-2017 End: 11-29-2017 Ambulatory Nelly Kartik Facility:[facility] Start: 11-14-2017 End: 11-15-2017 Ambulatory Nelly Kartik Facility:[facility] Start: 10-31-2017 End: 11-01-2017 Ambulatory Nelly Kartik Facility:[facility] Start: 10-16-2017 End: 10-17-2017 Ambulatory Nelly Kartik Facility:[facility] Start: 09-30-2017 End: 10-01-2017 Ambulatory Nelly Kartik Facility:[facility] Start: 09-19-2017 End: 09-20-2017 Ambulatory Nelly Kartik Facility:[facility] Start: 08-22-2017 End: 08-23-2017 Ambulatory Nelly Kartik Facility:[facility] Start: 08-22-2017 End: 08-23-2017 Ambulatory Nelly Kartik Facility:[facility] Start: 07-25-2017 End: 07-26-2017 Ambulatory Nelly Kartik Facility:[facility] Start: 06-27-2017 End: 06-28-2017 Ambulatory Nelly Kartik Facility:[facility] Start: 05-30-2017 End: 05-31-2017 Ambulatory Nelly Kartik Facility:[facility] Start: 05-28-2017 End: 05-29-2017 Ambulatory Nelly Kartik Facility:[facility] Patient encounter procedure Carole York DO [address] Work Phone: Comment on above: 06/2019-NEGATIVE -NEGATIVE; Procedures Date Procedure Procedure Detail Performing Clinician Start: 09-18-2023 Iadna ken specie s direct probe tq Silvano Andino MD Work Phone: Start: 06-17-2023 Microscopic observat ion [Identifier] in Cervix by Cyto stain Silvano Andino MD Work Phone: Start: 05-01-2023 Adult depression scr eening assessment Silvano Andino MD Work Phone: Start: 06-23-2020 CBC W Auto Different ial panel - Blood Carole York Start: 06-23-2020 Glucose post glucose dose Carole Naif Start: 06-06-2020 MAC Imaging Order Carole York Start: 06-17-2019 Microscopic observat ion [Identifier] in Cervix by Cyto stain spring Start: 05-17-2019 Adult depression scr eening assessment spring History of No histor y of surgery Carole Mancuso DO Insertion of intraut erine contraceptive device No PCP None Comment on above: 11/28/2020: Micheal; Plan of Treatment Date Care Activity Detail Author Start: 2042 Zoster Vaccines (1 o f 2) Zoster Vaccines (1 of 2) [facility] Start: 07-21-2030 DTaP/Tdap/Td Vaccine s (5 - Td or Tdap) DTaP/Tdap/Td Vaccines (5 - Td or Tdap) [facility] Start: 07-21-2030 Tetanus vaccination Tetanus: Every 1 0yrs [facility] Start: 06-17-2028 Screening for malign ant neoplasm of cervix [facility] Start: 06-17-2026 Screening for malign ant neoplasm of cervix [facility] Start: 06-21-2024 End: 06-21-2024 Patient encounter procedure 06/21/2024 11:15 AM EST Office Visit [facility] Scott Gonzalez [address] [place] [id number] Nikki Stevens MD [address] [place] [address] [facility], [place] [address] [place] [address] [facility] Start: 06-17-2024 History and physical examination, annual for health maintenance Wellness Visit [facility] Start: 05-06-2024 End: 05-06-2024 Patient encounter procedure 05/06/2024 3:00 PM EDT Office Visit [facility] [address] [place] [address] Silvano Andino MD [address] [address] [facility] Start: 05-01-2024 Depression screening using PHQ-9 (Patient Health Questionnaire 9) score [facility] Start: 05-01-2024 History and physical examination, annual for health maintenance Wellness Visit [facility] Start: 03-14-2024 Influenza vaccination [facility] Start: 03-01-2024 End: 03-01-2024 Clinical Support 03/01/2024 3:00 PM EDT Clinical Support [facility] [address] [place] [address] [facility] Start: 10-31-2023 End: 10-31-2023 Clinical Support 10/31/2023 3:00 PM EDT Clinical Support [facility] [address] [place] [address] [facility] Start: 10-20-2023 End: 10-20-2023 Patient encounter procedure 10/20/2023 11:40 AM EDT Office Visit [facility] [address] [place] [address] Silvano Andino MD [address] [address] [facility] Start: 06-17-2023 End: 06-17-2024 Cytology Cervical or vaginal smear or scraping study THINPREP PAP TEST Pathology and Cytology Routine Cervical cancer screening Expected: 06/17/2023, Expires: 06/17/2024 [facility] Service Area Work Phone: Comment on above: Expected: 06/17/2023 , Expires: 06/17/2024 Start: 03-14-2023 COVID-19 Vaccine () COVID-19 Vaccine () [facility] Start: 03-14-2023 Influenza vaccination [facility] Start: 2022 Screening for malign ant neoplasm of cervix HPV/Cotest [facility] Start: 06-17-2022 Screening for malign ant neoplasm of cervix Pap Smear [facility] Start: 04-08-2022 FUV, Provider: Jackie Mattson, Status: Pen, Time: 2:30 PM FUV, Provider: Jackie Mattson, Status: Pen, Time: 2:30 PM [facility] 300 Work Phone: Start: 01-10-2022 Influenza vaccination Sequenti al Influenza Vaccine (#1) [facility] Comment on above: Postponed from 03/14 (Patient Refused) Start: 09-10-2021 COVID-19 Vaccine (3 - Booster for Pfizer series) COVID-19 Vaccine (3 - Booster for Pfizer series) [facility] Start: 08-23-2021 End: 08-23-2021 Patient encounter procedure 08/23/2021 Office Visit Primary Care Katrin Pearson, [employer] PROGRAMMER [address] [place] [address] [facility] Start: 06-07-2021 COVID-19 Vaccine (3 - Pfizer series) COVID-19 Vaccine (3 - Pfizer series) [facility] Start: 06-17-2020 History and physical examination, annual for health maintenance Wellness Visit [facility] Start: 05-17-2020 Depression screening using PHQ-9 (Patient Health Questionnaire 9) score DEPRESSION SCREENING (PHQ9) [facility] Start: 05-17-2020 History and physical examination, annual for health maintenance Wellness Visit [facility] Start: 03-29-2020 Antibody hiv-1 HIV Antigen/An tibody Screen [employer] Phone: Start: 03-29-2020 Antibody rubella Rubella IgG Antibod y [employer] Work Phone: Start: 03-29-2020 Hemoglobin Identification Hemoglobin Identification [employer] Phone: Start: 03-29-2020 Hepatitis c antibody Hepatitis C Antibody Test [employer] Phone: Start: 03-29-2020 Iaad ia hepatitis b surface antigen Hepatitis B Surface Antigen [employer] Work Phone: Start: 03-29-2020 Iadna chlamydia trachomatis amplified probe tq GC + Chlamydia By Amplified Detection [employer] Phone: Start: 03-29-2020 SYPHILIS SCREENING W ITH REFLEX SYPHILIS SCREENING WITH REFLEX [employer] Work Phone: Start: 03-29-2020 Type and Screen Type and Screen [facility] [facility] Work Phone: Start: 03-17-2020 Depression Remission Assessment (PHQ9) Depression Remission Assessment (PHQ9) [facility] Start: 03-14-2020 Influenza vaccinatio n given Sequential Influenza Vaccine (Season Ended) [facility] Start: 01-11-2020 Influenza vaccinatio n given SEQUENTIAL INFLUENZA VACCINE (#1) [facility] Comment on above: Postponed from 03/14 (Patient Refused) Start: 08-17-2019 End: 08-17-2019 Office Visit [facility] Start: 02-08-2018 Varicella vaccination Varicell a Vaccines (1 of 2 - 2-dose childhood series) [facility] Start: 2013 Screening for malign ant neoplasm of cervix [facility] Start: 2010 Hepatitis C screening Hepatitis C Sc reening [facility] Start: 2007 HIV screening HIV Screening [facility] Start: 03-31-1996 Hepatitis B Vaccines (2 of 3 - 3-dose series) Hepatitis B Vaccines (2 of 3 - 3-dose series) [facility] Start: 1995 History and physical examination, annual for health maintenance Wellness Visit [facility] Start: 1992 Lipid panel Lipid Panel [facility] Start: 1992 Screening for malign ant neoplasm of cervix PAP SMEAR [facility] Start: 1992 [facility] Start: 1992 Yearly Adult Physical Yearly Adult P hysical [facility] End: 09-17-2024 Chlamydia trachomatis rRNA assay Chlamydia/GC/Trichomona s Amplified RNA Microbiology Routine Vaginal discharge Dyspareunia in female 1 Occurrences starting 09/18/2023 until 09/17/2024 [facility] Work Phone: Comment on above: 1 Occurrences starti ng 09/18/2023 until 09/17/2024 Chlamydia trachomati s rRNA assay Chlamydia/GC/Trichomona s Amplified RNA Microbiology Routine Vaginal discharge Dyspareunia in female 09/18/2023 2:43 PM EST [facility] End: 09-17-2024 Gardnerella vaginalis rRNA assay Vaginitis DNA Probes Microbiology Routine Vaginal discharge 1 Occurrences starting 09/18/2023 until 09/17/2024 [facility] Comment on above: 1 Occurrences starti ng 09/18/2023 until 09/17/2024 Gardnerella vaginali s rRNA assay Vaginitis DNA Probes Microbiology Routine Vaginal discharge 09/18/2023 2:43 PM EST [facility] End: 09-17-2024 Hepatitis B surface antibody measurement Hepatitis B Surface antibody Lab Routine Pre-employment examination 1 Occurrences starting 09/18/2023 until 09/17/2024 [facility] Comment on above: 1 Occurrences starti ng 09/18/2023 until 09/17/2024 Hepatitis B surface antibody measurement Hepatitis B Surface antibody Lab Routine Pre-employment examination 09/18/2023 2:49 PM EST [facility] End: 09-17-2024 Hepatitis B surface antigen measurement Hepatitis B Surface Antigen Lab Routine Pre-employment examination 1 Occurrences starting 09/18/2023 until 09/17/2024 [facility] Comment on above: 1 Occurrences starti ng 09/18/2023 until 09/17/2024 Hepatitis B surface antigen measurement Hepatitis B Surface Antigen Lab Routine Pre-employment examination 09/18/2023 2:49 PM [facility] End: 09-17-2024 Measurement of Measles virus antibody Rubeola Antibody, IgG Lab Routine Pre-employment examination 1 Occurrences starting 09/18/2023 until 09/17/2024 [facility] Comment on above: 1 Occurrences starti ng 09/18/2023 until 09/17/2024 Measurement of Measl es virus antibody Rubeola Antibody, IgG Lab Routine Pre-employment examination 09/18/2023 2:49 PM [facility] Microscopic examinat ion of vaginal Papanicolaou smear Thinprep Pap Smear Pathology and Cytology Routine Routine gynecological examination Ordered: 06/17/2019 [facility] Comment on above: Ordered: 06/17/2019 End: 09-17-2024 MTB SCREEN MTB SCREEN Lab Routine Pre-employment examination 1 Occurrences starting 09/18/2023 until 09/17/2024 [facility] Comment on above: 1 Occurrences starti ng 09/18/2023 until 09/17/2024 MTB SCREEN MTB SCREEN Lab R outine Pre-employment examination 09/18/2023 2:49 PM EST [facility] End: 09-17-2024 Mumps IgG level Mumps Antibody, IgG Lab Routine Pre-employment examination 1 Occurrences starting 09/18/2023 until 09/17/2024 [facility] Comment on above: 1 Occurrences starti ng 09/18/2023 until 09/17/2024 Mumps IgG level Mumps Antibody, IgG Lab Routine Pre-employment examination 09/18/2023 2:49 PM EST [facility] Neisseria gonorrhoea e nucleic acid detection Chlamydia/Gonorrhoeae Amplified RNA Microbiology Routine Vaginal discharge Dyspareunia in female 09/18/2023 2:43 PM EST [facility] Trichomonas vaginali s Amplified RNA Trichomonas vaginalis Amplified RNA Microbiology Routine Vaginal discharge Dyspareunia in female 09/18/2023 2:43 PM EST [facility] NEGATED: Highlighted row has been ruled out! Planned Goals not documented [address] Work Phone: Immunizations Immunization Date Immunization Notes Care Provider [facility] 10-31-2023 hepatitis B vaccine, adult dosage Jacike Maffett [employer] [facility] 10-31-2023 hepatitis B vaccine, unspecified formulation Kam Mayberry MD Work Phone: [facility] 09-26-2023 hepatitis B vaccine, adult dosage Jackie Maffett [employer] [facility] 09-26-2023 hepatitis B vaccine, unspecified formulation Jackie Maffett [employer] [facility] 04-12-2021 Pfizer SARS-CoV-2 Vaccination [facility] Work Phone: [facility] 03-22-2021 Pfizer SARS-CoV-2 Vaccination [facility] Work Phone: [facility] 07-21-2020 influenza, injectabl e, quadrivalent, preservative free [facility] Work Phone: [facility] 07-21-2020 tetanus toxoid, reduced diphtheria toxoid, and acellular pertussis vaccine, adsorbed [facility] Work Phone: [facility] 07-21-2020 influenza virus vaccine, unspecified formulation Nikki Stevens MD Work Phone: [facility] Work Phone: 01-11-2018 measles, mumps and rubella virus vaccine Katrin Carson [facility] Work Phone: [facility] 03-03-1996 diphtheria, tetanus toxoids and acellular pertussis vaccine, unspecified formulation [facility] Work Phone: [facility] 03-03-1996 hepatitis B vaccine, pediatric or pediatric/adolescent dosage [facility] [employer] Work Phone: [facility] 03-03-1996 trivalent poliovirus vaccine, live, oral [facility] [employer] Work Phone: [facility] 11-04-1994 DTP-Haemophilus influenzae type b conjugate vaccine [facility] [employer] Work Phone: [facility] 11-04-1994 measles, mumps and rubella virus vaccine [facility] [employer]MER Work Phone: [facility] 11-04-1994 trivalent poliovirus vaccine, live, oral [facility] [employer]MER Work Phone: [facility] 07-04-1993 diphtheria, tetanus toxoids and pertussis vaccine [facility] Work Phone: [facility] 07-04-1993 haemophilus influenz ae type b vaccine, conjugate unspecified formulation [facility] Work Phone: [facility] 07-04-1993 trivalent poliovirus vaccine, live, oral [facility] Work Phone: [facility] Payers Date Payer Category Payer Private Health Insurance [id number] 2017 Medicaid [id number] 2017 Medicaid [facility] [employer] [place] [id number] 2017-Present [phone] [address] [address] [place] [address] [id number] 2017 Unknown [id number] 2017 Unknown 2017 Private Health Insurance 1992 Unknown [id number] 56 1992 Unknown [id number] 56 1992 Unknown [id number] 56 1992 Unknown [id number] 56 1992 Unknown [id number] 244 1992 Unknown [id number] 03 1992 Unknown [id number] [id number] 03 1992 Unknown [id number] 243 1992 Unknown [id number] [id number] 243 1992 Unknown [id number] [id number] 03 1992 Unknown [id number] [id number] 03 1992 Unknown [id number] [id number] 03 1992 Unknown [id number] [id number] 03 1992 Unknown [id number] [id number] 03 1992 Unknown [id number] [id number] 03 1992 Unknown [id number] 03 Private Health Insurance [id number] Social History Date Type Detail Facility Start: 06-17-2019 End: 10-29-2022 Tobacco smoking status NHIS Never smoker [facility] Start: 06-17-2019 End: 10-20-2023 Alcohol intake Ex-drinker (finding) [facility] Start: 05-17-2019 End: 01-06-2020 History SDOH Alcohol Frequency 1 [facility] Start: 05-17-2019 History SDOH Social Connections Get Together 2 [facility] Start: 05-07-2019 Alcohol Comment NO [facility] Start: 1990 Sex Assigned At Not on file [facility] Start: 06-07-2023 End: 06-17-2023 Exposure to SARS-CoV-2 (event) Not sure [facility] Start: 05-01-2023 End: 10-20-2023 No alcohol use No alcohol use [facility] Start: 05-07-2019 End: 10-29-2022 Tobacco use and exposure Smokeless tobacco non-user [facility] Start: 05-01-2023 End: 10-20-2023 Social connection and isolation panel [facility] Frequency of Communication with Friends and Family Not on file [facility] How often to you hav e a drink containing alcohol? Never [facility] (I/We) worried wheth er (my/our) food would run out before (I/we) got money to buy more. Never true [facility] Start: 10-29-2022 Alcohol Comment occasional [facility] Start: 05-11-2019 Gender identity Identifies as female gender (finding) [facility] Start: 05-11-2019 Sexual orientation Heterosexual (fin ding) [facility] Start: 06-17-2023 Alcohol intake Lifetime non-d giovanni (finding) [facility] Work Phone: NEGATED: Highlighted row - - [address] Work Phone: Goals Date Patient Goal Desired Activity /State Personal health goal Comment on above: Formatting of this n ote might be different from the original. Coping and Emotions: Manage stress Adapt to lifestyle changes Get support from family / friends Formatting of this n ote might be different from the original. Eat real food! Meat, veggies, fruit, nuts, berries, and seeds! Avoid processed foods and sugars! Comment on above: Coping and Emotions: Manage stress Adapt to lifestyle changes Get support from family / friends Formatting of this n ote might be different from the original. Coping and Emotions: Manage stress Adapt to lifestyle changes Get support from family / friends Comment on above: Eat real food! Meat, veggies, fruit, nuts, berries, and seeds! Avoid processed foods and sugars! Formatting of this n ote might be different from the original. Eat real food! Meat, veggies, fruit, nuts, berries, and seeds! Avoid processed foods and sugars! Functional Status Date Assessment Result Facility NEGATED: Highlighted row Functional performance Functional status health issues are not documented Disease [place] [address] [employer] Work Phone: Mental Status Date Assessment Result Facility NEGATED: Highlighted row Cognitive function [Interpretation] Cognitive status health issues are not documented Disease [place] [address] [employer] Work Phone: Clinical Notes 12-14-2020 to 02-09-2024 Telephone Encounter - Jackie Woodall LPN - 02/09/2024 8:05 AM EDTTelephone Encounter - Jackie Woodall LPN - 02/09/2024 8:05 AM EDTTelephone Encounter - Jackie Woodall LPN - 12/09/2023 8:35 AM EDT Note Date & Type Note Facility 02-09-2024 Telephone encounter Note Last OV 10/20/23. Next OV 03/01/24. [facility] 02-09-2024 Miscellaneous Notes Last OV 10/20/23. Next OV 03/01/24. documented in this encounter [facility] 12-09-2023 Telephone encounter Note Last OV 10/20/23. Next OV 05/06/24. [facility] 12-09-2023 Miscellaneous Notes Last OV 10/20/23. Next OV 05/06/24. documented in this encounter [facility] 11-03-2023 History of Presen t illness Narrative Noted, encounter closed. Yes that would be fine Pt here for 2nd Hep B vaccination. Pt received this in her right deltoid without difficulty. Pt scheduled for 3rd injection 6 months from 1, so around end march. Pt report that she has an appointment with Dr. Andino on 05/06/24 and wants to know if she can wait and get it during this appointment. I advised that we will double check with Dr. Andino and let her know. documented in this encounter [facility] 10-31-2023 History of Presen t illness Narrative Yes that would be fine Pt here for 2nd Hep B vaccination. Pt received this in her right deltoid without difficulty. Pt scheduled for 3rd injection 6 months from 1, so around end of March. Pt report that she has an appointment with Dr. Andino on 05/06/24 and wants to know if she can wait and get it during this appointment. I advised that we will double check with Dr. Andino and let her know. documented in this encounter [facility] 04-08-2024 History of Presen t illness Narrative Chief Complaint Patient presents with Discuss Birthcontrol Options HPI: Stefania Nicole is a 33 y.o. female presenting today for an annual. Former patient of Katrin Pearson. Patient is relatively healthy with previous history of mild depression and anxiety. Pulled IUD out and pain is better Pap smear next year follows up with women[facility] care in [place]. She states it started about 10 days ago. She is having white, curd-like vaginal discharge. She was prescribed 2 courses of Diflucan by obgyn and she took OTC vagisil for 3 days and has had no relief. She states the skin is irritated, menjivar, and itches slightly. She admits to dyspareunia but denies any change in urination or bowel movements, dysuria, change in color or odor, hematuria or hematochezia, or burning with urination. She states she has had yeast infections before but they have always gone away. She is currently on a OCP BC, Lo Loestrin Fe that was changed from a lower hormonal dose. History of Present Illness The patient reports an improvement in her condition following the discontinuation of the generic brand of control, which led to a resolution of her yeast infection within a day or two. She has expressed interest in exploring various contraceptive methods, including patch and NuvaRing, having previously tried them once, but discontinued its use due to perceived incorrect usage. She recalls using Liletta IUD for 2 years but had breakthrough bleeding and depot shots during her high school years, but discontinued due to weight gain. Currently, she is menstruating and expresses uncertainty about the possibility of IUD placement, as she commenced her menstrual cycle today. The patient inquires about the possibility of receiving the hepatitis B series vaccine. History reviewed. No pertinent past medical history. History reviewed. No pertinent surgical history. Family History Problem Relation Age of Onset Diabetes Father Diabetes Maternal Grandmother Lung cancer Maternal Grandfather Cancer Paternal Grandmother breast cancer Lung cancer Paternal Grandmother Heart disease Paternal Grandfather Social History Tobacco Use Smoking status: Never Smokeless tobacco: Never Vaping Use Vaping Use: Never used Substance Use Topics Alcohol use: Not Currently Comment: occasional Drug use: Never Comment: NO Review of Systems Vitals: 10/20/23 1037 BP: 135/83 BP Location: Right arm Patient Position: Sitting BP Cuff Size: Adult Pulse: 99 Resp: 16 Temp: 98.6 F (37 C) TempSrc: Infrared SpO2: 98% Weight: 65.8 kg (145 lb) Height: 5' 2 Estimated body mass index is 26.52 kg/m as calculated from the following: Height as of this encounter: 5' 2 . Weight as of this encounter: 65.8 kg (145 lb). Physical Exam Constitutional: General: She is not in acute distress. Appearance: She is not ill-appearing. HENT: Head: Normocephalic and atraumatic. Nose: Nose normal. Mouth/Throat: Mouth: Mucous membranes are moist. Pharynx: Oropharynx is clear. No oropharyngeal exudate or posterior oropharyngeal erythema. Eyes: Extraocular Movements: Extraocular movements intact. Conjunctiva/sclera: Conjunctivae normal. Pupils: Pupils are equal, round, and reactive to light. Cardiovascular: Rate and Rhythm: Normal rate and regular rhythm. Pulses: Normal pulses. Heart sounds: Normal heart sounds. No murmur heard. No gallop. Pulmonary: Effort: Pulmonary effort is normal. Breath sounds: Normal breath sounds. No wheezing, rhonchi or rales. Chest: Chest wall: No tenderness. Abdominal: General: Abdomen is flat. Bowel sounds are normal. There is no distension. Palpations: Abdomen is soft. There is no mass. Tenderness: There is no abdominal tenderness. There is no right CVA tenderness, left CVA tenderness, guarding or rebound. Comments: Negative Parks sign Musculoskeletal: General: No tenderness. Normal range of motion. Cervical back: Normal range of motion and neck supple. No rigidity. No muscular tenderness. Right lower leg: No edema. Left lower leg: No edema. Lymphadenopathy: Cervical: No cervical adenopathy. Skin: General: Skin is warm. Findings: No erythema or rash. Neurological: General: No focal deficit present. Mental Status: She is alert and oriented to person, place, and time. Sensory: No sensory deficit. Motor: No weakness. Gait: Gait normal. Psychiatric: Mood and Affect: Mood normal. Behavior: Behavior normal. Thought Content: Thought content normal. Judgment: Judgment normal. OARRS/NARxCHECK Report Received and Assessed: Date controlled substance agreement signed: No data found Date of last drug screen: @Exam@ PHQ9: [id number] Tobacco Counseling: Counseling given: Not Answered Patient's Medications New Prescriptions ETONOGESTREL-ETHINYL ESTRADIOL (NUVARING) 0.12-0.015 MG/24 HR VAGINAL RING Insert vaginally and leave in place for 3 consecutive weeks, then remove for 1 week. . Previous Medications CLOTRIMAZOLE (LOTRIMIN) 1 % CREAM Apply topically 2 (two) times a day . LO LOESTRIN FE 1 MG-10 MCG (24)/10 MCG (2) TAB Modified Medications No medications on file Discontinued Medications No medications on file Health Maintenance Due Topic Date Due HIV Screening Never done Hepatitis C Screening Never done COVID-19 Vaccine ( season) 2023 Assessment & Plan Problem List Items Addressed This Visit Other control counseling - Primary Relevant Medications etonogestreL-ethinyl estradioL (NUVARING) 0.12-0.015 mg/24 hr vaginal ring Assessment & Plan 1. Contraception. A comprehensive discussion was held regarding the advantages and disadvantages of contraceptive patches, NuvaRing, and intrauterine devices (IUDs). A prescription for generic NuvaRing was issued, with instructions to dispense it if covered by her insurance. Health maintenance. The patient will wait for her hepatitis B vaccine as it has to be 4 weeks apart from last shot. Follow-up The patient is scheduled for a follow-up visit in 04/2024 for her annual physical examination. After discussing the use of ambient listening and audio recording in generating medical documentation, the patient verbally consented to use of this technology for today's visit. No follow-ups on file. SILVANO ANDINO MD [place] [id number] [facility] [address] [place] [id number] Dept: [phone] 05/17/2019 3:00 PM 05/01/2023 3:40 PM Depression Screening Little interest or pleasure in doing things 3 0 Feeling down, depressed, or hopeless 2 0 PHQ-2 Total Score 5 0 Trouble falling or staying asleep, or sleeping too much 3 1 Feeling tired or having little energy 2 1 Poor appetite or overeating 1 0 Feeling bad about yourself - or that you are a failure or have let yourself or your family down 1 0 Trouble concentrating on things, such as reading the newspaper or watching television 0 0 Moving or speaking so slowly that other people could have noticed. Or the opposite - being so fidgety or restless that you have been moving around a lot more than usual 0 0 Thoughts that you would be better off , or of hurting yourself in some way 0 0 PHQ-9 Total Score 12 2 If you checked off any problems, how difficult have these problems made it for you to do your work, take care of things at home, or get along with other people? 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 She is up to date with tetanus until 2030. Hep b titer ordered. TB quantiferon ordered. Hep c and HIV patient will get records from her obgyn. Dr. Andino placed all orders. [facility] 09-18-2023 History of Presen t illness Narrative Subjective Patient ID: Stefania Nicole is a 33 y.o. female. 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 Vaginal discharge: She states it started about 10 days ago. She is having white, curd-like vaginal discharge. She was prescribed 2 courses of Diflucan by obgyn and she took OTC vagisil for 3 days and has had no relief. She states the skin is irritated, menjivar, and itches slightly. She admits to dyspareunia but denies any change in urination or bowel movements, dysuria, change in color or odor, hematuria or hematochezia, or burning with urination. She states she has had yeast infections before but they have always gone away. She is currently on a OCP BC, Lo Loestrin Fe that was changed from a lower hormonal dose. 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 She states she needs MMR, Hep b, tetanus, and TB. Review of Systems Constitutional: Negative. Gastrointestinal: Negative for abdominal pain, blood in stool, constipation, diarrhea, nausea and vomiting. Genitourinary: Positive for dyspareunia and vaginal discharge. Negative for difficulty urinating, dysuria, hematuria, pelvic pain, vaginal bleeding and vaginal pain. Objective Physical Exam Vitals reviewed. Exam conducted with a blood splatter analyst present. Constitutional: Appearance: Normal appearance. Cardiovascular: Rate and Rhythm: Regular rhythm. Tachycardia present. Pulses: Normal pulses. Heart sounds: Normal heart sounds. Pulmonary: Effort: Pulmonary effort is normal. Breath sounds: Normal breath sounds. Genitourinary: Exam position: Lithotomy position. Labia: Right: No rash, tenderness or lesion. Left: No rash, tenderness or lesion. Vagina: Vaginal discharge and erythema present. No tenderness or bleeding. Cervix: Discharge and erythema present. No cervical motion tenderness or cervical bleeding. Uterus: Normal. Adnexa: Right adnexa normal and left adnexa normal. Comments: White, curd-like discharge noted on cervix. Vulvar erythema and vaginal erythema Neurological: Mental Status: She is alert and oriented to person, place, and time. 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 A pelvic exam, LIZETT wet prep, and STD testing were performed based on ROS and physical exam. Physical exam revealed white, curd-like discharge on the cervix and erythema. Based on these findings differential includes vaginal candidiasis, bacterial vaginosis, or STD infection. She also needed vaccines for her school program, titers and labs were ordered. Diagnoses and all orders for this visit: Vaginal discharge - Chlamydia/GC/Trichomonas Amplified RNA; Future - Vaginitis DNA Probes; Future - clotrimazole (LOTRIMIN) 1 % cream; Apply topically 2 (two) times a day . - Chlamydia/GC/Trichomonas Amplified RNA - Vaginitis DNA Probes Dyspareunia in female - Chlamydia/GC/Trichomonas Amplified RNA; Future - Chlamydia/GC/Trichomonas Amplified RNA Pre-employment examination - Mumps Antibody, IgG; Future - Rubeola Antibody, IgG; Future - MTB SCREEN; Future - Hepatitis B Surface antibody; Future - Hepatitis B Surface Antigen; Future Patient was seen by student, pelvic exam with bimanual, speculum, and swabs were performed by my preceptor Dr. Andino with student present and assisting. All questions and concerns from patient addressed. I have reviewed the notes, assessments, and/or procedures performed by Jacinda Jones, I concur with her/his documentation of Stefania Nicole. Problem List Items Addressed This Visit Other Vaginal discharge - Primary LIZETT wet prep test performed. Pelvic exam performed no cervical motion tenderness noted with bimanual exam. Speculum exam white, cured-like discharge noted on cervix. Prescribed drospirenone-ethinyl estradiol 0.03mg tablets and clotrimazole 1% cream for one week. Exam performed by Dr. Andino. Relevant Medications clotrimazole (LOTRIMIN) 1 % cream Other Relevant Orders Chlamydia/GC/Trichomonas Amplified RNA Vaginitis DNA Probes Dyspareunia in female LIZETT wet prep test performed. STD testing performed. Pelvic exam performed no cervical motion tenderness noted with bimanual exam. Speculum exam white, cured-like discharge noted on cervix. Prescribed clotrimazole 1% cream for one week. 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 She is up to date with tetanus until 2030. Hep b titer ordered. TB quantiferon ordered. Hep c and HIV patient will get records from her obgyn. Dr. Andino placed all orders. 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 She is up to date with tetanus until 2030. Hep b titer ordered. TB quantiferon ordered. Hep c and HIV patient will get records from her obgyn. Dr. Andino placed all orders. Associated Problem(s): Dyspareunia in female LIZETT wet prep test performed. STD testing performed. Pelvic exam performed no cervical motion tenderness noted with bimanual exam. Speculum exam white, cured-like discharge noted on cervix. Prescribed clotrimazole 1% cream for one week. Associated Problem(s): Vaginal discharge LIZETT wet prep test performed. Pelvic exam performed no cervical motion tenderness noted with bimanual exam. Speculum exam white, cured-like discharge noted on cervix. Prescribed drospirenone-ethinyl estradiol 0.03mg tablets and clotrimazole 1% cream for one week. Exam performed by Dr. Andino. documented in this encounter [facility] 09-18-2023 Evaluation + Plan note Associated Problem(s): Dyspareunia in female LIZETT wet prep test performed. STD testing performed. Pelvic exam performed no cervical motion tenderness noted with bimanual exam. Speculum exam white, cured-like discharge noted on cervix. Prescribed clotrimazole 1% cream for one week. [facility] 09-18-2023 Evaluation + Plan note Associated Problem(s): Vaginal discharge LIZETT wet prep test performed. Pelvic exam performed no cervical motion tenderness noted with bimanual exam. Speculum exam white, cured-like discharge noted on cervix. Prescribed drospirenone-ethinyl estradiol 0.03mg tablets and clotrimazole 1% cream for one week. Exam performed by Dr. Andino. [facility] 06-17-2023 History of Presen t illness Narrative Subjective Patient ID: Stefania Schafer is a 32 y.o. female who presents for Vaginal Bleeding (Patient is here for a brown discharge that started at the end of last month. Patient takes OCP BC pills continuously. ). HPI Stefania is a 32-year-old woman who comes in with concerns of brown discharge. She reports that last month she had a brown discharge that was thick with no odor or itching. It lasted for about a week. It resolved spontaneously but now has a recurrence of this discharge going on for 7 days now. In February she was changed to low Loestrin control pills and has been taking that continuously. The last Pap smear she recalls is about 3 years ago. Denies a history of abnormal Pap smears. 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 Musculoskeletal denies any changes in mobility Psych denies any changes in her mood but reports she does not sleep well because her children sleep with her Objective Physical Exam 11/13/2020 1:33 PM 11/28/2020 2:07 PM 12/15/2020 11:24 AM 03/11/2022 2:24 PM 11/25/2022 3:26 PM 12/19/2022 1:24 PM 06/17/2023 2:41 PM Vitals Systolic 110 112 114 122 130 128 Diastolic 84 70 80 76 64 70 Heart Rate 84 Temp 36.7 C (98 F) 36.7 C (98 F) 36.6 C (97.8 F) 36.6 C (97.8 F) Height (in) 1.575 m (5' 2 ) 1.575 m (5' 2 ) 1.575 m (5' 2 ) 1.575 m (5' 2 ) 1.6 m (5' 3 ) 1.6 m (5' 3 ) 1.575 m (5' 2 ) Weight (lb) 146.39 146.39 140.21 141 143 143.23 151.8 BMI 26.77 kg/m2 26.77 kg/m2 25.65 kg/m2 25.79 kg/m2 25.33 kg/m2 25.37 kg/m2 27.76 kg/m2 BSA (m2) 1.7 m2 1.7 m2 1.67 m2 1.67 m2 1.7 m2 1.7 m2 1.74 m2 Visit Report Report Pleasant healthy appearing in no distress Head and neck no lesions supple without adenopathy Lungs clear to auscultation Heart regular rhythm but mildly tachycardic Breast symmetrical no masses discharge or retraction or skin changes Abdomen soft nontender External genitalia reveal no lesions the vagina appeared well estrogenized there was a scant amount of brown discharge the cervix was nonfriable uterus and adnexa were normal size nontender Extremities good mobility Psych appropriately oriented with normal mood and affect Assessment/Plan Stefania is a 32-year-old who comes in with concerns of a brown discharge. Patient has been taking low-dose control pills continuously therefore suspect the bleeding is secondary to atrophy. Advised the patient that she could start taking the control pills as prescribed with a break from the active pills every 3 weeks or she could take them continuously and when she started seeing discharge she would take a 7-day break or alternatively she just can continue taking them as she has been taking them but her bleeding and brown discharge will be unpredictable. Patient agreeable to taking a 7-day break once she starts seeing the brown discharge. At this point no further workup is indicated. Pap smear was done physical exam is benign refill her control pills and follow-up in 1 year documented in this encounter [facility] Work Phone: 05-05-2023 History of Presen t illness Narrative FAXED FOR RECORDS TO [facility] Chief Complaint Patient presents with Annual Exam Pt declines flu shot today. Gap Closure (Health Maintenance) HIV Screening Never done Hepatitis C Screening Never done Depression Screening (PHQ-2/9) due on 05/17/2020 Wellness Visit due on 06/17/2020 Pap Smear due on 06/17/2022 Sequential Influenza Vaccine(1) due on 03/14/2023 COVID-19 Vaccine( season) due on 03/14/2023 HPI: Stefania Nicole is a 32 y.o. female presenting today for an annual. Former patient of spring. Patient is relatively healthy with previous history of mild depression and anxiety. Right behind rib pain: For the past 2 months intermittent lasting 1-2 mins, happens with bending , sometimes just sitting, felt like something moved. Has been also gassy and bloated. Unsure if it related to food or not. No N/V , BM regular. At some point last year she was dealing with anxiety and depression, started on Zoloft 25 mg to see if it helps. Stopped after 6 months. Feels fine no concerns. Abdominal discomfort: With every single meals , GI discomfort relieve with BM, diarrhea , no blood. Associated with bloating. Pulled IUD out and pain is better Pap smear next year follows up with [facility] in [place]. Hemorrhoids: Fullness inside and one outside since she had her son 2 years ago. No bleeding , unconfortable and itches sometiems . Used preparation H to help but nno relief. Normal BM , more on the loser side, suspected IBS History reviewed. No pertinent past medical history. History reviewed. No pertinent surgical history. Family History Problem Relation Age of Onset Diabetes Father Diabetes Maternal Grandmother Lung cancer Maternal Grandfather Cancer Paternal Grandmother breast cancer Lung cancer Paternal Grandmother Heart disease Paternal Grandfather Social History Tobacco Use Smoking status: Never Smokeless tobacco: Never Vaping Use Vaping Use: Never used Substance Use Topics Alcohol use: Not Currently Comment: occasional Drug use: Never Comment: NO Review of Systems Vitals: 05/01/23 1511 BP: 138/86 BP Location: Right arm Patient Position: Sitting BP Cuff Size: X-large Adult Pulse: (!) 110 Resp: 16 Temp: 98.7 F (37.1 C) TempSrc: Infrared SpO2: 98% Weight: 69.4 kg (153 lb) Height: 5' 2 Estimated body mass index is 27.98 kg/m as calculated from the following: Height as of this encounter: 5' 2 . Weight as of this encounter: 69.4 kg (153 lb). Physical Exam Constitutional: General: She is not in acute distress. Appearance: She is not ill-appearing. HENT: Head: Normocephalic and atraumatic. Right Ear: Tympanic membrane, ear canal and external ear normal. Left Ear: Tympanic membrane, ear canal and external ear normal. Nose: Nose normal. Mouth/Throat: Mouth: Mucous membranes are moist. Pharynx: Oropharynx is clear. No oropharyngeal exudate or posterior oropharyngeal erythema. Eyes: Extraocular Movements: Extraocular movements intact. Conjunctiva/sclera: Conjunctivae normal. Pupils: Pupils are equal, round, and reactive to light. Cardiovascular: Rate and Rhythm: Normal rate and regular rhythm. Pulses: Normal pulses. Heart sounds: Normal heart sounds. No murmur heard. No gallop. Pulmonary: Effort: Pulmonary effort is normal. Breath sounds: Normal breath sounds. No wheezing, rhonchi or rales. Chest: Chest wall: No tenderness. Abdominal: General: Abdomen is flat. Bowel sounds are normal. There is no distension. Palpations: Abdomen is soft. There is no mass. Tenderness: There is no abdominal tenderness. There is no right CVA tenderness, left CVA tenderness, guarding or rebound. Comments: Negative Parks sign Musculoskeletal: General: No tenderness. Normal range of motion. Cervical back: Normal range of motion and neck supple. No rigidity. No muscular tenderness. Right lower leg: No edema. Left lower leg: No edema. Lymphadenopathy: Cervical: No cervical adenopathy. Skin: General: Skin is warm. Findings: No erythema or rash. Neurological: General: No focal deficit present. Mental Status: She is alert and oriented to person, place, and time. Sensory: No sensory deficit. Motor: No weakness. Gait: Gait normal. Psychiatric: Mood and Affect: Mood normal. Behavior: Behavior normal. Thought Content: Thought content normal. Judgment: Judgment normal. OARRS/NARxCHECK Report Received and Assessed: No data found Date controlled substance agreement signed: No data found Date of last drug screen: No data found Functional Assessment: No data found @Exam@ PHQ9: Over the last 2 weeks, how often have you been bothered by any of the following problems? Little interest or pleasure in doing things: Not at all Feeling down, depressed, or hopeless: Not at all PHQ-2 Total Score: 0 Trouble falling or staying asleep, or sleeping too much: Several days Feeling tired or having little energy: Several days Poor appetite or overeating: Not at all Feeling bad about yourself - or that you are a failure or have let yourself or your family down: Not at all Trouble concentrating on things, such as reading the newspaper or watching television: Not at all Moving or speaking so slowly that other people could have noticed. Or the opposite - being so fidgety or restless that you have been moving around a lot more than usual: Not at all Thoughts that you would be better off , or of hurting yourself in some way: Not at all PHQ-9 Total Score: 2 If you checked off any problems, how difficult have these problems made it for you to do your work, take care of things at home, or get along with other people?: Not difficult at all RAJEVE-7 Over the last 2 weeks, how often have you been bothered by the following problems? Feeling nervous, anxious or on edge: Several days Not being able to stop or control worrying: Not at all Worrying too much about different things: Not at all Trouble relaxing: Not at all Being so restless that it is hard to sit still: Not at all Becoming easily annoyed or irritable: Several days Feeling afraid as if something awful might happen: Not at all RAJEEV-7 Score: 2 Tobacco Counseling: Counseling given: Not Answered Patient's Medications New Prescriptions No medications on file Previous Medications HYDROCORTISONE (ANUSOL-HC) 2.5 % RECTAL CREAM Insert into the rectum 2 (two) times a day . LO LOESTRIN FE 1 MG-10 MCG (24)/10 MCG (2) TAB Modified Medications No medications on file Discontinued Medications No medications on file Health Maintenance Due Topic Date Due HIV Screening Never done Hepatitis C Screening Never done Pap Smear 06/17/2022 Sequential Influenza Vaccine (1) 03/14/2023 COVID-19 Vaccine ( season) 2023 Assessment & Plan Problem List Items Addressed This Visit Digestive Hemorrhoid Stable no concerns Musculoskeletal and Integument Skin mole Continue to monitor, currently benign mole with no change in features with increased depth, size or hyperpigmentation. Other Wellness examination Pap smear will be done through [facility] in [place]. Refusing influenza and COVID shots. Low concern for HIV and hepatitis C at this time. No concern for early screening for breast cancer or colon cancer. Rib pain Could be related to muscular pain in the RUQ. No Parks sign or any other signs of cholecystitis at this time. Not related to food. Continue to monitor and check for correlation to increased exertion versus food intake. Holding off on x-ray or RUQ ultrasound. I spent 40 minutes with patient reviewing HPI and coordinating plan of care as well as documenting that note. Return in about 1 year (around 05/01/2024) for Annual Exam. SILVANO ANDINO MD [facility] [address] [facility] [address] [facility] [id number] Dept: [phone] 05/17/2019 3:00 PM 05/01/2023 3:40 PM Depression Screening Little interest or pleasure in doing things 3 0 Feeling down, depressed, or hopeless 2 0 PHQ-2 Total Score 5 0 Trouble falling or staying asleep, or sleeping too much 3 1 Feeling tired or having little energy 2 1 Poor appetite or overeating 1 0 Feeling bad about yourself - or that you are a failure or have let yourself or your family down 1 0 Trouble concentrating on things, such as reading the newspaper or watching television 0 0 Moving or speaking so slowly that other people could have noticed. Or the opposite - being so fidgety or restless that you have been moving around a lot more than usual 0 0 Thoughts that you would be better off , or of hurting yourself in some way 0 0 PHQ-9 Total Score 12 2 If you checked off any problems, how difficult have these problems made it for you to do your work, take care of things at home, or get along with other people? Somewhat difficult Not difficult at all documented in this encounter [facility] 05-02-2023 Evaluation + Plan note Associated Problem(s): Rib pain Could be related to muscular pain in the RUQ. No Parks sign or any other signs of cholecystitis at this time. Not related to food. Continue to monitor and check for correlation to increased exertion versus food intake. Holding off on x-ray or RUQ ultrasound. [facility] 05-02-2023 Miscellaneous Notes Associated Problem(s): Rib pain Could be related to muscular pain in the RUQ. No Parks sign or any other signs of cholecystitis at this time. Not related to food. Continue to monitor and check for correlation to increased exertion versus food intake. Holding off on x-ray or RUQ ultrasound. Associated Problem(s): Hemorrhoid Stable no concerns Associated Problem(s): Skin mole Continue to monitor, currently benign mole with no change in features with increased depth, size or hyperpigmentation. Associated Problem(s): Wellness examination Pap smear will be done through [facility] in [place]. Refusing influenza and COVID shots. Low concern for HIV and hepatitis C at this time. No concern for early screening for breast cancer or colon cancer. documented in this encounter [facility] 05-02-2023 Evaluation + Plan note Associated Problem(s): Hemorrhoid Stable no concerns [facility] 05-02-2023 Evaluation + Plan note Associated Problem(s): Skin mole Continue to monitor, currently benign mole with no change in features with increased depth, size or hyperpigmentation. [facility] 05-02-2023 Evaluation + Plan note Associated Problem(s): Wellness examination Pap smear will be done through [facility] in [place]. Refusing influenza and COVID shots. Low concern for HIV and hepatitis C at this time. No concern for early screening for breast cancer or colon cancer. [facility] 02-20-2023 Note Diagnoses/Problems Assessed General counseling and advice for contraceptive management (V25.09) (Z30.09) Orders Stop: Tri-Sprintec 0.18/0.215/0.25 MG-35 MCG Oral Tablet Start: Lo Loestrin Fe 1 MG-10 MCG / 10 MCG Oral Tablet; TAKE 1 TABLET DAILY DIRECTED Provider Impressions Rx different OCP formulation RTO if still having concerns otherwise RTO annual exam and PRN Chief Complaint Patient here today with concerns of brown discharge every other week, She has been on this pill about 2 months. She isn't sure if she needs more time to adjust or if she should switch. LMP : 02/11/2023 History of Present IllnessPt. presents to discuss changing OCP due to brown discharge on and off x 2 mos Denies any other c/o or concerns Review of Systems Constitutional: no fever and no chills. Genitourinary: as noted in HPI. Active Problems Problems Chronic constipation (564.00) (K59.09) Contraception management (V25.9) (Z30.9) COVID-19 (079.89) (U07.1) Encounter for routine checking of intrauterine contraceptive device (IUD) (V25.42) (Z30.431) Encounter for routine gynecological examination (V72.31) (Z01.419) External hemorrhoids (455.3) (K64.4) exam (V24.2) (Z39.2) Right wrist pain (719.43) (M25.531) Screening for cervical cancer (V76.2) (Z12.4) Screening for STD (sexually transmitted disease) (V74.5) (Z11.3) Urine test negative (V72.41) (Z32.02) Past Medical History Problems History of IUD (intrauterine device) in place (V45.51) (Z97.5) 11/28/2020; MICHEAL History of Menstruation Onset age 15 years History of Normal vaginal delivery (650) (O80) 10/03/2020-39 weeks, vaginal, male, #7 15oz 01/10/2018_40weeks_Female_7# 4oz History of Women's annual routine gynecological examination (V72.31) (Z01.419) 06/2019-NEGATIVE 06/27/2017-NEGATIVE Surgical History Problems History of Intrauterine device placement 11/28/2020: Micheal Family History Mother No pertinent family history Father Family history of diabetes mellitus (V18.0) (Z83.3) Social History Problems Does not use illicit drugs (V49.89) (Z78.9) Never a smoker No alcohol use Sexually active Allergies Medication Augmentin Diarrhea; Recorded By: Radha Hogan; 03/29/2020 3:47:46 PM Current Meds Medication NameInstruction Tri-Sprintec 0.18/0.215/0.25 MG-35 MCG Oral TabletTAKE 1 TABLET BY MOUTH EVERY DAY Vitals Vital Signs Recorded: [id number] 03:43PM [id number] [id number] Height5 ft 3 in [id number] lb 6 oz BMI Tbahwyipco13.57 kg/m2 BSA Calculated1.68 [id number] Physical Exam Constitutional: Alert and in no acute distress. Well developed, well nourished Pulmonary: No respiratory distress Psychiatric: alert and oriented x 3., affect normal to patient baseline, mood: appropriate and judgment and insight: intact Signatures Electronically signed by : MELBA Amin APRN-NUMERICAL CONTROL TOOL PROGRAMMER; Feb 20 2023 4:11PM EST (Author) [facility] 01-10-2022 History of Presen t illness Narrative Patient is here today for evaluation of her right wrist pain that started about 2 months ago. She is a 31-year-old female who mentions playing with her children and falling landing on bilateral outstretched hands. She had pain right away but quickly went away. She did this again about 3 weeks ago again having pain. She has been utilizing a wrist brace off and on for about 2 months. She did notice a ganglion cyst on the dorsum of the wrist just this past week. She has some numbness and tingling but does mention carpal tunnel syndrome during her pregnancies. Pain is worse when putting pressure on the palm. She rates her pain as a 7/10 and describes it as aching and sharp. She is not utilizing Tylenol which does seem to help. [facility] [address] Work Phone: 09-24-2021 Telephone encounter Note Attempted to call pt. No answer. Message left informing pt of Zoloft refills. Advised pt to call the office at [phone] with any questions or concerns. [facility] 09-24-2021 Miscellaneous Notes Attempted to call pt. No answer. Message left informing pt of Zoloft refills. Advised pt to call the office at [phone] with any questions or concerns. documented in this encounter [facility] 08-27-2021 History of Presen t illness Narrative Mailed ANUSHA to Stefania asking her to merle out and mail back Our last ANUSHA was dated 05/01 [facility] will not release records until they have updated ANUSHA. Trying to get records and labs from Dr. Mancuso. Faxed ANUSHA to [facility] and for labs. (08/13/[address] Mancuso office for records [phone]. Images from the original note were not included. Subjective Patient ID: Stefania Schafer is a 30 y.o. female. Patient is here today for concern with anxiety and depression. She states she feels like they are both out of control at this time. She states that she has never been medicated for anxiety or depression. She states she is irritable, edgy, picking at her skin and other things. She just does not feel well at this time. She is still her son, he is currently 8 months old, she would like to breastfeed until he is a year old. Bug bites: Patient states that she noticed x 3 bites on her left arm and hand Friday. They have not gotten worse. The following were reviewed and updated as appropriate for today's visit: allergies, current medications, past family history, past medical history, past social history, past surgical history and problem list. Patient's Medications New Prescriptions SERTRALINE (ZOLOFT) 25 MG TABLET Take 1 (one) tablet (25 mg total) by mouth daily . Previous Medications LEVONORGESTREL (LILETTA) 20.1 MCG/24 HRS (6 YRS) 52 MG IUD IUD 1 each by Intrauterine route once . Modified Medications No medications on file Discontinued Medications ETONOGESTREL-ETHINYL ESTRADIOL (NUVARING) 0.12-0.015 MG/24 HR VAGINAL RING Insert vaginally and leave in place for 3 consecutive weeks, then remove for 1 week. . Review of Systems Review of Systems Constitutional: Negative for activity change and fatigue. HENT: Negative for hearing loss. Eyes: Negative for visual disturbance. Respiratory: Negative for cough, chest tightness and shortness of breath. Cardiovascular: Negative for chest pain and palpitations. Musculoskeletal: Negative for gait problem. Skin: Negative. Psychiatric/Behavioral: Positive for dysphoric mood. Negative for agitation. The patient is nervous/anxious. Vitals: 07/24/21 1521 BP: 116/85 BP Location: Left arm Patient Position: Sitting BP Cuff Size: Adult Pulse: (!) 101 Resp: 16 Temp: 98.7 F (37.1 C) TempSrc: Temporal SpO2: 98% Weight: 64.9 kg (143 lb) Height: 5' 2 Body mass index is 26.16 kg/m . Physical Exam Physical Exam Constitutional: Appearance: She is well-developed and well-nourished. HENT: Right Ear: External ear normal. Left Ear: External ear normal. Nose: Nose normal. Mouth/Throat: Mouth: Oropharynx is clear and moist and mucous membranes are normal. Eyes: General: Lids are normal. Extraocular Movements: EOM normal. Conjunctiva/sclera: Conjunctivae normal. Cardiovascular: Rate and Rhythm: Normal rate and regular rhythm. Heart sounds: Normal heart sounds. No murmur heard. Pulmonary: Effort: Pulmonary effort is normal. Breath sounds: Normal breath sounds. Musculoskeletal: Cervical back: Normal range of motion. Comments: Normal gait Skin: General: Skin is warm and dry. Comments: Noticed what looks like spider bite to hand and two on arm. No swelling, redness, or drainage. Healing nicely. Neurological: Mental Status: She is alert and oriented to person, place, and time. GCS: GCS eye subscore is 4. GCS verbal subscore is 5. GCS motor subscore is 6. Psychiatric: Mood and Affect: Mood and affect normal. Speech: Speech normal. Behavior: Behavior normal. OARRS/NARxCHECK Report Received and Assessed: No data found Date controlled substance agreement signed: No data found Date of last drug screen: No data found Functional Assessment: No data found Assessment/Plan Problem List Items Addressed This Visit Other Anxiety with depression - Primary Will start you on Zoloft 25 mg daily to see if this helps with anxiety and depression. Will also check your labs to make sure your thyroid level is normal, this can cause anxiety and depression. Relevant Medications sertraline (ZOLOFT) 25 MG tablet Other Relevant Orders CBC and Differential (Completed) Comprehensive Metabolic Panel (Completed) TSH with Reflex Free T4 (Completed) Bug bite Healing well, nothing concerning. Wellness examination Relevant Orders CBC and Differential (Completed) Comprehensive Metabolic Panel (Completed) TSH with Reflex Free T4 (Completed) Preventative Goals Goals better food choices Eat real food! Meat, veggies, fruit, nuts, berries, and seeds! Avoid processed foods and sugars! Coping and Emotions Coping and Emotions: Manage stress Adapt to lifestyle changes Get support from family / friends Exercise 150 minutes per week (moderate activity) For any new medications prescribed today, patient was educated about indications for the medication, how to take the medication and potential side effects of the medications. Katrin Pearson CNP documented in this encounter [facility] 07-24-2021 Miscellaneous Notes Associated Problem(s): Bug bite Healing well, nothing concerning. Associated Problem(s): Anxiety with depression Will start you on Zoloft 25 mg daily to see if this helps with anxiety and depression. Will also check your labs to make sure your thyroid level is normal, this can cause anxiety and depression. documented in this encounter [facility] 07-24-2021 Miscellaneous Notes Associated Problem(s): Bug bite Healing well, nothing concerning. Associated Problem(s): Anxiety with depression Will start you on Zoloft 25 mg daily to see if this helps with anxiety and depression. Will also check your labs to make sure your thyroid level is normal, this can cause anxiety and depression. documented in this encounter [facility] 07-24-2021 History of Presen t illness Narrative Faxed ANUSHA to Susan Osorio and for labs. (08/13/[address] Mancuso office for records [phone]. Images from the original note were not included. Subjective Patient ID: Stefania Schafer is a 30 y.o. female. Patient is here today for concern with anxiety and depression. She states she feels like they are both out of control at this time. She states that she has never been medicated for anxiety or depression. She states she is irritable, edgy, picking at her skin and other things. She just does not feel well at this time. She is still her son, he is currently 8 months old, she would like to breastfeed until he is a year old. Bug bites: Patient states that she noticed x 3 bites on her left arm and hand Friday. They have not gotten worse. The following were reviewed and updated as appropriate for today's visit: allergies, current medications, past family history, past medical history, past social history, past surgical history and problem list. Patient's Medications New Prescriptions SERTRALINE (ZOLOFT) 25 MG TABLET Take 1 (one) tablet (25 mg total) by mouth daily . Previous Medications LEVONORGESTREL (LILETTA) 20.1 MCG/24 HRS (6 YRS) 52 MG IUD IUD 1 each by Intrauterine route once . Modified Medications No medications on file Discontinued Medications ETONOGESTREL-ETHINYL ESTRADIOL (NUVARING) 0.12-0.015 MG/24 HR VAGINAL RING Insert vaginally and leave in place for 3 consecutive weeks, then remove for 1 week. . Review of Systems Review of Systems Constitutional: Negative for activity change and fatigue. HENT: Negative for hearing loss. Eyes: Negative for visual disturbance. Respiratory: Negative for cough, chest tightness and shortness of breath. Cardiovascular: Negative for chest pain and palpitations. Musculoskeletal: Negative for gait problem. Skin: Negative. Psychiatric/Behavioral: Positive for dysphoric mood. Negative for agitation. The patient is nervous/anxious. Vitals: 07/24/21 1521 BP: 116/85 BP Location: Left arm Patient Position: Sitting BP Cuff Size: Adult Pulse: (!) 101 Resp: 16 Temp: 98.7 F (37.1 C) TempSrc: Temporal SpO2: 98% Weight: 64.9 kg (143 lb) Height: 5' 2 Body mass index is 26.16 kg/m . Physical Exam Physical Exam Constitutional: Appearance: She is well-developed and well-nourished. HENT: Right Ear: External ear normal. Left Ear: External ear normal. Nose: Nose normal. Mouth/Throat: Mouth: Oropharynx is clear and moist and mucous membranes are normal. Eyes: General: Lids are normal. Extraocular Movements: EOM normal. Conjunctiva/sclera: Conjunctivae normal. Cardiovascular: Rate and Rhythm: Normal rate and regular rhythm. Heart sounds: Normal heart sounds. No murmur heard. Pulmonary: Effort: Pulmonary effort is normal. Breath sounds: Normal breath sounds. Musculoskeletal: Cervical back: Normal range of motion. Comments: Normal gait Skin: General: Skin is warm and dry. Comments: Noticed what looks like spider bite to hand and two on arm. No swelling, redness, or drainage. Healing nicely. Neurological: Mental Status: She is alert and oriented to person, place, and time. GCS: GCS eye subscore is 4. GCS verbal subscore is 5. GCS motor subscore is 6. Psychiatric: Mood and Affect: Mood and affect normal. Speech: Speech normal. Behavior: Behavior normal. OARRS/NARxCHECK Report Received and Assessed: No data found Date controlled substance agreement signed: No data found Date of last drug screen: No data found Functional Assessment: No data found Assessment/Plan Problem List Items Addressed This Visit Other Anxiety with depression - Primary Will start you on Zoloft 25 mg daily to see if this helps with anxiety and depression. Will also check your labs to make sure your thyroid level is normal, this can cause anxiety and depression. Relevant Medications sertraline (ZOLOFT) 25 MG tablet Other Relevant Orders CBC and Differential (Completed) Comprehensive Metabolic Panel (Completed) TSH with Reflex Free T4 (Completed) Bug bite Healing well, nothing concerning. Wellness examination Relevant Orders CBC and Differential (Completed) Comprehensive Metabolic Panel (Completed) TSH with Reflex Free T4 (Completed) Preventative Goals Goals better food choices Eat real food! Meat, veggies, fruit, nuts, berries, and seeds! Avoid processed foods and sugars! Coping and Emotions Coping and Emotions: Manage stress Adapt to lifestyle changes Get support from family / friends Exercise 150 minutes per week (moderate activity) For any new medications prescribed today, patient was educated about indications for the medication, how to take the medication and potential side effects of the medications. Katrin Pearson CNP documented in this encounter [facility] 07-24-2021 Instructions Katrin Pearson CNP - 07/24/2021 3:26 PM EST Problem List Items Addressed This Visit Other Anxiety with depression - Primary Will start you on Zoloft 25 mg daily to see if this helps with anxiety and depression. Will also check your labs to make sure your thyroid level is normal, this can cause anxiety and depression. Relevant Medications sertraline (ZOLOFT) 25 MG tablet Other Relevant Orders CBC and Differential (Completed) Comprehensive Metabolic Panel (Completed) TSH with Reflex Free T4 (Completed) Bug bite Healing well, nothing concerning. Wellness examination Relevant Orders CBC and Differential (Completed) Comprehensive Metabolic Panel (Completed) TSH with Reflex Free T4 (Completed) If any referrals were placed at the time of your visit please allow 2 weeks for processing. If you haven't heard from anyone within 2 weeks please contact my office so we can look into the status of your referral. If you were given any labs today please ensure they are completed according to the directions given. Once labs are completed please allow 1-2 weeks for us to receive the results, review them, and let you know what steps, if any, are needed next. If you haven't heard from us after that please call to inquire. If labs were ordered to be done PRIOR to your next visit we will discuss the results at the time of your office visit. If any procedures or imaging studies were ordered that must be prior authorized please give us 2 weeks to get them approved. Once approved someone should call you to schedule them or give you a date and time that they were scheduled for. If you haven't heard anything within 2 weeks of the office visit please call the office so we can look into their status. Customer Service/Billing Questions: [phone] MyChart Assistance: [phone] or [phone] Financial Assistance: [phone] or [phone] documented in this encounter [facility] 07-24-2021 Instructions Katrin Pearson CNP - 07/24/2021 3:26 PM EST Problem List Items Addressed This Visit Other Anxiety with depression - Primary Will start you on Zoloft 25 mg daily to see if this helps with anxiety and depression. Will also check your labs to make sure your thyroid level is normal, this can cause anxiety and depression. Relevant Medications sertraline (ZOLOFT) 25 MG tablet Other Relevant Orders CBC and Differential (Completed) Comprehensive Metabolic Panel (Completed) TSH with Reflex Free T4 (Completed) Bug bite Healing well, nothing concerning. Wellness examination Relevant Orders CBC and Differential (Completed) Comprehensive Metabolic Panel (Completed) TSH with Reflex Free T4 (Completed) If any referrals were placed at the time of your visit please allow 2 weeks for processing. If you haven't heard from anyone within 2 weeks please contact my office so we can look into the status of your referral. If you were given any labs today please ensure they are completed according to the directions given. Once labs are completed please allow 1-2 weeks for us to receive the results, review them, and let you know what steps, if any, are needed next. If you haven't heard from us after that please call to inquire. If labs were ordered to be done PRIOR to your next visit we will discuss the results at the time of your office visit. If any procedures or imaging studies were ordered that must be prior authorized please give us 2 weeks to get them approved. Once approved someone should call you to schedule them or give you a date and time that they were scheduled for. If you haven't heard anything within 2 weeks of the office visit please call the office so we can look into their status. Customer Service/Billing Questions: [phone] MyChart Assistance: [phone] or [phone] Financial Assistance: [phone] or [phone] documented in this encounter [facility] 12-14-2020 History of Presen t illness Narrative 30-year-old presents for IUD follow-up. Patient notes a little bit heavier bleeding last day or 2. Patient was ever since placement she felt the strings were too long they poked her GI to talk to him and sometimes. Patient notes minimal no cramps. Patient has not had intimacy. [address] Work Phone: Evaluation note Diagnosis Anxiety with depression- Primary Wellness examination Bug bite, [facility] Anxiety with [facility] Diagnosis Skin mole Benign neoplasm of skin, site unspecified Wellness examination Hemorrhoids, unspecified hemorrhoid type Rib pain Unspecified chest pain [facility] Diagnosis Cervical cancer screening- Primary Screening for malignant neoplasm of the cervix Encounter for annual routine gynecological examination Encounter for surveillance of contraceptive pills documented in this encounter [facility] Work Phone: Evaluation note* Diagnosis Vaginal discharge- Primary Leukorrhea, not specified as infective Dyspareunia in female Pre-employment examination [facility] Diagnosis Vaginal discharge- Primary Leukorrhea, not specified as infective Dyspareunia in female Pre-employment examination [facility] Diagnosis Need for vaccination [Z23]- Primary Need for prophylactic vaccination and inoculation against unspecified single disease [facility] Diagnosis control counseling- Primary [facility] Diagnosis Need for vaccination [Z23]- Primary Need for prophylactic vaccination and inoculation against unspecified single disease [facility] Need for vaccination- Primary Need for prophylactic vaccination and inoculation against unspecified single disease [facility] Need for vaccination [Z23]- Primary Need for prophylactic vaccination and inoculation against unspecified single disease [facility]* Ms. Schafer is a 32-year-old female seen by self-referral for evaluation of hemorrhoids. * She has never had a colonoscopy. She has no family history of colon or rectal cancer. -[facility] Work Phone: Instructions* Name Dates Details Instructions not documented [facility] Work Phone: Summary Purpose Family History No Family History Records Found Mother Name Dates Details No pertinent family history( V49.89, Z78.9) Status:Active Father Name Dates Details Family history of diabetes m ellitus(V18.0, Z83.3) Status:Active Mother Name Dates Details No pertinent family history( V49.89, Z78.9) Status:Active Father Name Dates Details Family history of diabetes m ellitus(V18.0, Z83.3) Status:Active Unknown Family Member Name Dates Details Family history of diabetes m ellitus: Father(V18.0, Z83.3) Status:Active No pertinent family history: Mother(V49.89, Z78.9) Status:Active Unknown Family Member Name Dates Details Family history of diabetes m ellitus: Father(V18.0, Z83.3) Status:Active No pertinent family history: Mother(V49.89, Z78.9) Status:Active Mother Name Dates Details No pertinent family history( V49.89, Z78.9) Status:Active Father Name Dates Details Family history of diabetes m ellitus(V18.0, Z83.3) Status:Active Unknown Family Member Name Dates Details Family history of diabetes m ellitus: Father(V18.0, Z83.3) Status:Active No pertinent family history: Mother(V49.89, Z78.9) Status:Active Unknown Family Member Name Dates Details Family history of diabetes m ellitus: Father(V18.0, Z83.3) Status:Active No pertinent family history: Mother(V49.89, Z78.9) Status:Active Unknown Family Member Name Dates Details Family history of diabetes m ellitus: Father(V18.0, Z83.3) Status:Active No pertinent family history: Mother(V49.89, Z78.9) Status:Active Advance Directives No Advanced Directives Records FoundDocuments on File Type Date Recorded 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 female and is here for a comprehensive physical exam. The patient reports no problems. control: Patient is getting next year and would like to wait to have children until after the wedding. They have one child at home that is close to 16 months old. Talked about differentoptions and she is interested in the Nuvaring or the patch. Explained controls and the risks/benefits in detail with patient. Do you take any herbs or supplements that were not prescribed by a doctor? no Are you taking calcium supplements? no Domestic violence: denies Depression Screen: up to date Diet: moderately healthy Exercise: light Immunizations: up to date Last eye exam: never Last dental visit: 3+ years ago Any high risk behavior: denies Tobacco use or exposure: denies Alcohol use: denies HIV: low risk HepC: low risk Females: Last Pap/HPV: unknown 1-3 years ago Hx of falls? Denies : 1 Para: 1 The following portions of the patient's history were reviewed and updated as appropriate: allergies, current medications, past family history, past medical history, past social history, past surgicalhistory and problem list. History reviewed. No pertinent past medical history. History reviewed. No pertinent surgical history. Social History Tobacco Use Smoking status: Never Smoker Smokeless tobacco: Never Used Substance Use Topics Alcohol use: Not Currently Frequency: Never Comment: NO Drug use: Never Comment: NO Family History Problem Relation Age of Onset Diabetes Father Diabetes Maternal Grandmother Lung cancer Maternal Grandfather Lung cancer Paternal Grandmother Heart disease Paternal Grandfather No Known Allergies Review of Systems Do you have pain that bothers you in your daily life? no Constitutional: negative for chills, malaise and sweats Eyes: negative for irritation, redness and visual disturbance Ears, nose, mouth, throat, and face: negative for earaches, snoring and tinnitus Respiratory: negative for cough, hemoptysis and wheezing Cardiovascular: negative for chest pain, dyspnea, fatigue and palpitations Gastrointestinal: negative for abdominal pain, constipation, diarrhea, nausea and vomiting Genitourinary:negative for dysuria, hematuria and urinary incontinence Integument/breast: negative for breast lump, breast tenderness, dryness, nipple discharge and skin color change Musculoskeletal:negative for arthralgias, myalgias and stiff joints Neurological: negative for dizziness, headaches, seizures and tremors Behavioral/Psych: negative for anxiety and depression Endocrine: negative for diabetic symptoms including blurry vision, polydipsia and polyuria Objective: BP 117/83 (BP Location: Left arm, Patient Position: Sitting, BP Cuff Size: Adult) Pulse 91 Temp98.4 F (36.9 C) (Oral) Resp 18 Ht 5' 2 Wt 60.3 kg (133 lb) LMP 05/29/2019 SpO2 96% BMI24.33 kg/m General Appearance: Alert, cooperative, no distress, appears stated age Head: Normocephalic, without obvious abnormality, atraumatic Eyes: PERRL, conjunctiva/corneas clear, EOM's intact, fundi benign, both eyes Ears: Normal TM's and external ear canals, both ears Nose: Nares normal, septum midline, mucosa normal, no drainage or sinus tenderness Neck: Supple, symmetrical, trachea midline, no adenopathy; thyroid: no enlargement/tenderness/nodules; no carotid bruit or JVD Chest Wall: No tenderness or deformity Heart: Regular rate and rhythm, S1 and S2 normal, no murmur, rub or gallop Breast Exam: No tenderness, masses, or nipple abnormality Abdomen: Soft, non-tender, bowel sounds active all four quadrants, no masses, no organomegaly Extremities: Extremities normal, atraumatic, no cyanosis or edema Pulses: 2+ and symmetric all extremities Skin: Skin color, texture, turgor normal, no rashes or lesions Lymph nodes: Cervical, supraclavicular, and axillary nodes normal Neurologic: CNII-XII intact, normal strength, sensation and reflexes throughout Assessment: Healthy female exam. Pelvic: cervix normal in appearance, external genitalia normal, no adnexal masses or tenderness, no cervical motion tenderness, rectovaginal septum normal and uterus normal size,shape, and consistency Patient deferred breast exam at today's visit. Plan: 1. Patient Counseling: --Nutrition: Stressed importance of moderation in sodium/caffeine intake, saturated fat and cholesterol, caloric balance, sufficient intake of fresh fruits, vegetables, fiber, calcium, iron, and 1 mgof folate supplement per day (for females capable of ). --Discussed the daily use of baby aspirin. --Exercise: Stressed the importance of regular exercise. --Substance Abuse: Discussed cessation/primary prevention of tobacco, alcohol, or other drug use --Sexuality: Discussed sexually transmitted diseases, partner selection, use of condoms, avoidance of unintended and contraceptive alternatives. --Dental health: Discussed importance of regular dental visits. --Immunizations reviewed. --Discussed benefits of screening mammograms, pap smears, and colonoscopy. 2. Discussed the patient's BMI with her. The BMI is in the acceptable range 3. Follow up in one year Problem List Items Addressed This Visit Other control counseling Relevant Medications etonogestrel-ethinyl estradiol (NUVARING) 0.12-0.015 mg/24 hr vaginal ring Other Visit Diagnoses Routine gynecological examination - Primary Relevant Orders Thinprep Pap Smear documented in this encounter* Katirn Pearson CNP - 01/11/2020 11:56 AM EDT S: The patient complains of symptomatic skin tags on her bottom lip. These are irritated by her chewing on her lip and licking her lips. O: Patient appears well. One benign skin tag is noted in the middle of bottom lip. A: Skin tags P: Skin tags are snipped off using Betadine for cleansing and sterile iris scissors. Local anesthesia was not used. Applied EMLA and waited 20 minutes before removing. Patient tolerated well. These pathognomonic lesions are not sent for pathology. documented in this encounter* Katrin Pearson CNP - 05/17/2019 3:18 PM EST Subjective Patient ID: Stefania Schafer is a 28 y.o. female. Patient is here today to establish care, she is new to this provider and new to this practice. Patient has one child at home, she is 16 months old, baby girl. Worried about depression and anxiety due to low libido. She states her sex drive has been down and she believes it may be due to depression and anxiety. She states her 16 month old daughter sleeps inbed with her and is still being breast fed. She states she is getting up 3-4 times a night to breast feed. Talked at length about antidepressants and how these work and the risks vs benefits especially related to and possible in the future. Talked about libido and how this can be affected from lack of sleep and stress. She states she is exhausted. [place] decision to wait to start medications and work on weaning daughter off of and having her sleep in her own bed. Also talked about leaving baby with grandparents and spending a night away from home to see if this helps with libido. Over the last 2 weeks, how often have you been bothered by the following problems? Feeling nervous, anxious or on edge: Over half the days Not being able to stop or control worrying: Nearly every day Worrying too much about different things: Nearly every day Trouble relaxing: Nearly every day Being so restless that it is hard to sit still: Nearly every day Becoming easily annoyed or irritable: Nearly every day Feeling afraid as if something awful might happen: Several days [id number] Score: (!) 18 If you checked off any problems, How difficult have these problems made it for you to do your work, take care of things at home, or get along with other people?: Very difficult Over the last 2 weeks, how often have you been bothered by any of the following problems? Little interest or pleasure in doing things: Nearly every day Feeling down, depressed, or hopeless: More than half the days PHQ-2 Total Score: 5 Trouble falling or staying asleep, or sleeping too much: Nearly every day Feeling tired or having little energy: More than half the days Poor appetite or overeating: Several days Feeling bad about yourself - or that you are a failure or have let yourself or your family down: Several days Trouble concentrating on things, such as reading the newspaper or watching television: Not at all Moving or speaking so slowly that other people could have noticed. Or the opposite - being so fidgety or restless that you have been moving around a lot more than usual: Not at all Thoughts that you would be better off , or of hurting yourself in some way: Not at all PHQ-9 Total Score: 12 If you checked off any problems, how difficult have these problems made it for you to do your work,take care of things at home, or get along with other people?: Somewhat difficult The following were reviewed and updated as appropriate for today's visit: allergies, current medications, past family history, past medical history, past social history, past surgical history and problem list. Patient's Medications No medications on file Review of Systems Review of Systems Constitutional: Negative for activity change, appetite change and fatigue. HENT: Negative for hearing loss. Eyes: Negative for visual disturbance. Respiratory: Negative for cough, chest tightness, shortness of breath and wheezing. Cardiovascular: Negative for chest pain, palpitations and leg swelling. Genitourinary: Negative for dyspareunia. Skin: Negative. Neurological: Negative for dizziness, weakness, light-headedness, numbness and headaches. Hematological: Does not bruise/bleed easily. Psychiatric/Behavioral: Positive for dysphoric mood and sleep disturbance. The patient is not nervous/anxious. Vitals: 05/17/19 1458 BP: 118/83 BP Location: Left arm Patient Position: Sitting BP Cuff Size: Adult Pulse: 84 Resp: 18 Temp: 98.2 F (36.8 C) TempSrc: Oral SpO2: 98% Weight: 61.2 kg (135 lb) Height: 5' 2 Body mass index is 24.69 kg/m . Physical Exam Physical Exam Constitutional: She is oriented to person, place, and time. She appears well- developed and well-nourished. HENT: Right Ear: External ear normal. Left Ear: External ear normal. Nose: Nose normal. Mouth/Throat: Oropharynx is clear and moist and mucous membranes are normal. Eyes: Conjunctivae, EOM and lids are normal. Neck: Normal range of motion. Cardiovascular: Normal rate, regular rhythm and normal heart sounds. No murmur heard. Pulmonary/Chest: Effort normal and breath sounds normal. Musculoskeletal: Comments: Normal gait Neurological: She is alert and oriented to person, place, and time. GCS eye subscore is 4. GCS verbal subscore is 5. GCS motor subscore is 6. Skin: Skin is warm and dry. Psychiatric: She has a normal mood and affect. Her speech is normal and behavior is normal. Tearful at times No data recorded Assessment/Plan Problem List Items Addressed This Visit Other Wellness examination - Primary I would like you to obtain some fasting blood work. This means that you can not have anything to eat or drink for about 8-10 hours before your blood is drawn. The only thing you are allowed to have before your labs is a glass of water or a cup of BLACK coffee. Thank you. The lab is open here at the office M-F 730am-4pm, you do not need an appointment, just walk in. Relevant Orders CBC and Differential (Completed) Comprehensive Metabolic Panel (Completed) Lipid Panel (Completed) TSH with Reflex Free T4 (Completed) Anxiety with depression We can start medication if you would like to go that route in the future. For now I want you to work on getting good sleep and taking care of yourself. We will make sure labs are normal. Preventative Goals Goals better food choices Eat real food! Meat, veggies, fruit, nuts, berries, and seeds! Avoid processed foods and sugars! Coping and Emotions Coping and Emotions: Manage stress Adapt to lifestyle changes Get support from family / friends Exercise 150 minutes per week (moderate activity) For any new medications prescribed today, patient was educated about indications for the medication, how to take the medication and potential side effects of the medications. Katrin Pearson CNP documented in this encounter Assessments Diagnosis Routine gynecological examination control counseling Diagnosis Skin tag Unspecified hypertrophic and atrophic condition of skin Diagnosis Wellness examination- Primary Anxiety with depression Chief Complaint PT IS HERE TODAY FOR A 2 WEEK IUD CHECK. HAS NO CONCERNS.PT IS HERE TODAY FOR A 2 WEEK IUD CHECK. HAS NO CONCERNS.NEW) right wrist pain, dorsal cyst with tenderness, pain with resisted extension of the wrist. Onset: 2 months, she did have a foosh but didn t need medical attention after the injury, other than that no trauma history of surgical history of the right wrist. She denies any treatments to date. XR series of the right wrist performed today.Hemorrhoids Additional Source Comments INFORMATION SOURCE (unrecogn ized section and content) DATE CREATED AUTHOR 01/06/2018 [facility] DATE CREATED AUTHOR AUTHOR'S ORGANIZ ATION 01/19/2018 [facility] DATE CREATED AUTHOR AUTHOR'S ORGANIZ ATION 03/16/2022 [facility] DATE CREATED AUTHOR AUTHOR'S ORGANIZ ATION 02/21/2023 [facility] DATE CREATED AUTHOR AUTHOR'S ORGANIZ ATION 02/21/2023 [facility] DATE CREATED AUTHOR AUTHOR'S ORGANIZ ATION 07/06/2023 [facility] DATE CREATED AUTHOR AUTHOR'S ORGANIZ ATION 09/22/2023 [facility] DATE CREATED AUTHOR AUTHOR'S ORGANIZ ATION 02/20/2024 [facility] DATE CREATED AUTHOR AUTHOR'S ORGANIZ ATION 05/16/2024 [facility] Reason for Visit (unrecogniz ed section and content) Reason Comments Gynecologic Exam Pt would like to dis cuss control medications Reason Comments bump on lip x1.5 months unsure i f she bit her lip in her sleep or not Reason Comments Establish Care >3 months Pt reports would like to discuss depression and anxiety episodes Reason Comments Insect Bite Noticed Friday taylor interiano Reason Onset Date Comments Medication Refill 09/24/2021 Reason Comments Annual Exam Pt declines flu shot today. Gap Closure (Health Maintenance) HIV Scr eening Never doneHepatitis C Screening Never doneDepression Screening (PHQ-2/9) due on 05/17/2020Wellness Visit due on 06/17/2020Pap Smear due on 06/17/2022equential Influenza Vaccine(1) due on 03/14/2023OVID-19 Vaccine( - season) due on 03/14/2023 Reason Comments Vaginal Bleeding Patient is here for a brown discharge that started at the end of last month. Patient takes OCP BC pills continuously. Reason Comments Vaginitis Y- yeast infection, vaccines Reason Comments Discuss Birthcontrol Options Reason Comments Immunizations 2nd Hep B vaccinatio n Reason Onset Date Comments Medication Refill 12/06/2023 Reason Onset Date Comments Medication Refill 02/07/2024 Assessment & Plan Note - Katrin Pearson CNP - 05/21/2019 6:01 PM ESTAssessment & Plan Note - Katrin Pearson CNP - 05/17/2019 3:36 PM EST Miscellaneous Notes (unrecog nized section and content) Associated Problem(s): Anxiety with depression We can start medication if you would like to go that route in the future. For now I want you to work on getting good sleep and taking care of yourself. We will make sure labs are normal. Associated Problem(s): Wellness examination I would like you to obtain some fasting blood work. This means that you can not have anything to eat or drink for about 8-10 hours before your blood is drawn. The only thing you are allowed to have before your labs is a glass of water or a cup of BLACK coffee. Thank you. The lab is open here at the office M-F 730am-4pm, you do not need an appointment, just walk in. documented in this encounter Care Teams (unrecognized sec tion and content) Restaurant Shift Leader Relationship Specialty Start Date End Date Katrin Pearson CNP PCP - General Nurse Practitioner 05/07/19 Restaurant Shift Leader Relationship Specialty Start Date End Date Katrin Pearson CNP PCP - General Nurse Practitioner 05/07/19 Restaurant Shift Leader Relationship Specialty Start Date End Date Silvano Andino MD [address] [place] [address] PCP - General Family Medicine 10/29/22 Restaurant Shift Leader Relationship Specialty Start Date End Date Silvano Andino MD [facility] [address] [address] PCP - General Family Medicine 10/29/22 Restaurant Shift Leader Relationship Specialty Start Date End Date Silvano Andino MD [facility] [place] [id number] PCP - General Family Medicine 10/29/22 Restaurant Shift Leader Relationship Specialty Start Date End Date Silvano Andino MD [address] [place], [place] [id number] PCP - General Family Medicine 10/29/22 Restaurant Shift Leader Relationship Specialty Start Date End Date Silvano Andino MD [facility] [place] [id number] PCP - General Family Medicine 10/29/22 Restaurant Shift Leader Relationship Specialty Start Date End Date Silvano Andino MD [address] [place], [place] [id number] PCP - General Family Medicine 10/29/22 Restaurant Shift Leader Relationship Specialty Start Date End Date Silvano Andino MD [facility] [address] [address] PCP - General Family Medicine 10/29/22 Restaurant Shift Leader Relationship Specialty Start Date End Date Silvano Andino MD [address] [place] [address] [place] [address] PCP - General Family Medicine 10/29/22 Restaurant Shift Leader Relationship Specialty Start Date End Date Silvano Andino MD [address] [address] PCP - General Family Medicine 10/29/22 Dell Wiggins PA-C [address] [place] [address] [address] Physician Hydro Mechanic Physician Hydro Mechanic 12/18/23 FOR RECORDS PERTAINING TO PATIENTS WHO ARE OR HAVE BEEN ENROLLED IN A CHEMICAL DEPENDENCY/SUBSTANCEABUSE PROGRAM, SOME INFORMATION MAY BE OMITTED. This clinical summary was aggregated from multiple sources. Caution should be exercised in using it in the provision of clinical care. This summary normalizes information from multiple sources, and as a consequence, information in this document may materially change the coding, format and clinical context of patient data. In addition, data may be omitted in some cases. CLINICAL DECISIONS SHOULD BE BASED ON THE PRIMARY CLINICAL RECORDS. [employer] provides no warranty or guarantee of the accuracy or completeness of information in this document.
== END | disposition home or self-care (01) ==
LOC: NM 09:35
PROVIDERS: PCP Family Medicine
DX: K58.9 Irritable bowel syndrome, unspecified (principal); K63.8219 Small intestinal bacterial overgrowth, unspecified
CPT/HCPCS: 78264; A9541

== ENCOUNTER → 2024-07-01 | Outpatient (CLI) | payer OTHER, SELFPAY ==
[2024-07-01 12:32] LABS: Absolute Lymphocyte Count 2.24 X10^3/uL (0.83-4.51); Absolute Neutrophil Count 4.8 X10^3/uL (2.0-7.7); Basophil# 0.08 X10^3/uL; Eosinophil# 0.05 X10^3/uL; Eosinophils% 0.7 % (0-5); Hematocrit 44.5 % (37-47); Hemoglobin 14.9 g/dL (12.0-15.0); Lymphocyte # 2.24 X10^3/ul (0.83-4.51); Lymphocyte % 29.2 % (19-41); Mean Corp Hgb Conc 33.5 g/dL (32-36); Mean Corpuscular Hgb 28.9 pg (27.0-32.0); Mean Corpuscular Volume 86.4 fL (81-99); Mean Platelet Vol. 9.9 fl (6.2-12.0); Monocyte% 6.5 % (0-10); NRBC Flagged by Analyzer 0 % (0-5); Neutrophil # 4.78 X10^3/uL (2.7-7.7); Neutrophil % 62.3 % (47-70); Platelet Count 441 K/mm3 (150-450); RBC Distribution Width CV 12.5 % (11.6-14.6); RBC Distribution Width SD 39.3 fl (35.1-43.9); Red Blood Count 5.15 M/mm3 (4.2-5.4); White Blood Count 7.7 K/mm3 (4.4-11.0)
== END | disposition home or self-care (01) ==
PROVIDERS: PCP Internal Medicine; Referring Provider Student in an Organized Health Care Education/Training Program; Visit Provider Student in an Organized Health Care Education/Training Program
DX: K62.5 Hemorrhage of anus and rectum (principal)
CPT/HCPCS: 36415; 85025

== ENCOUNTER → 2024-09-06 | Outpatient (CLI) | payer OTHER, SELFPAY ==
--- NOTE | 2024-09-06 07:48 | US_ITS ---
PROCEDURE: PELVIC W/ TRANSVAGINAL REASON FOR EXAM: Abnormal uterine bleeding. TECHNIQUE: Transabdominal and transvaginal pelvic ultrasound COMPARISON: None. FINDINGS: Measurements: Uterus: 9.6 cm x 5.8 cm x 5.4 cm with a volume of 157 mL Endometrial Thickness: 17.2 mm. This is thickened. Nabothian cyst. Right Ovary: 3.6 cm x 2.6 cm x 1.2 cm with a volume of 5.54 mL. Left Ovary: 3.2 cm x 2.5 cm x 1.6 cm with a volume of 6.64 mL. TRANSABDOMINAL: Uterus: Normal size, myometrial echotexture, and contour. Endometrium: The endometrium is thickened and measures 17.2 mm. It is hyperechoic. Heterogeneous echotexture of the myometrium although no focal fibroid is seen. Right ovary: Normal size and echotexture. Left ovary: Normal size and echotexture. No large pelvic mass identified. Transvaginal sonography was performed to better visualize the endometrium. TRANSVAGINAL: Uterus: Anteverted. Heterogeneous echotexture of the myometrium in keeping with fibroid change although no focal fibroid is seen. Endometrium: Endometrial thickening. Right ovary: Normal size and echotexture. Left ovary: Normal size and echotexture. Other adnexal findings: None. Cul-de-sac: No free intraperitoneal fluid identified. No tenderness. US/Pelvic w/ Transvaginal IMPRESSION: Endometrial thickening measuring 17.2 mm. Heterogeneous appearance of the myometrium. Reading Location: [facility]
== END | disposition home or self-care (01) ==
LOC: OPUS 07:47
PROVIDERS: PCP Internal Medicine; Referring Provider Nurse Practitioner Women's Health; Visit Provider Nurse Practitioner Women's Health
DX: N93.9 Abnormal uterine and vaginal bleeding, unspecified (principal)
CPT/HCPCS: 76830; 76856

== ENCOUNTER 2024-10-15 08:29 | Day surgery (SDC) | payer OTHER, SELFPAY ==
[2024-10-15 08:40] VITALS: BP 116/52; PULSE 88; RESP 18; TEMP 36.2; O2SAT 99; BMI 27.4
--- NOTE | 2024-10-15 08:50 | PCM.HP.BLA ---
History and Physical Date of Admission: 10/15/24 The patient is examined and there are no changes to the H&P dated 10/13/24. 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 Informed consent is obtained for excision neoplasms posterior scalp. She is marked in the pre-op area. Assessment & Plan Assessment/Plan (1) Neoplasm of uncertain behavior of skin: PLAN: Plan For excision neoplasms scalp x 2.
[2024-10-15 09:11] VITALS: BP 112/66; BP 113/89; O2SAT 100
--- NOTE | 2024-10-15 09:20 | LES_PTH ---
PATIENT: TIM NICOLE LOC: [facility] [place] U#:[id number] AGE/SX: 34/F ROOM: RE10/15/[address]: Dr. Olinda Berrios MD : 1990 BED: DIS: 10/15/2024 SPEC #: [id number] RECD: 10/15/24 13:04 STATUS: SHU LUCAS #: [id number] BRUNA: 10/15/24 09:[address]: Olinda Berrios DEPT: SURGICAL PATHOLOGY RECD BY: Carlos Aquino ENTERED: 10/15/24 13:05 SP TYPE: Lesion OTHR DR: Dr. Vilma Min MD Tissues: A - Skin of scalp, NOS B - Skin of scalp, NOS Procedures: Surgery Specimen Level IV HEADER OPERATION: Excision neoplasm x 2 scalp (1.5cm, 1.5cm) PRE-OP DIAGNOSIS: Neoplasm of uncertain behavior of skin TISSUE SUBMITTED: A- Neoplasm of uncertain behavior of skin of scalp - upper, B- Neoplasm of uncertain behavior of skin of scalp - lower MICROSCOPIC DIAGNOSIS A. Skin, upper scalp, excision: - Compound melanocytic nevus, traumatized. B. Skin, lower scalp, excision: - Compound melanocytic nevus. MICROSCOPIC DESCRIPTION Slides are reviewed. GROSS DESCRIPTION A. Received in formalin in a container labeled with the patient's name, date of , and neoplasm of uncertain behavior of skin of scalp-upper is an unoriented and circular skin excision measuring 1.1 x 1.1 cm with a depth of 0.4 cm. The viramontes epidermis is notable for an irregular, viramontes-pink, papillary nodule measuring 1.0 x 1.0 x 0.4 cm. The nodule comes to within approximately 0.1 cm of the peripheral margin. The deep margin is inked green and serial sections reveal viramontes-pink, rubbery surfaces that appear confined to the epidermis. Submitted entirely as follows:A1. Tips, perpendicularA2. Remainder of specimen B. Received in formalin in a container labeled with the patient's name, date of , and neoplasm of uncertain behavior of skin of scalp-lower is an unoriented and ovoid skin excision measuring 1.3 x 1.0 cm with an excisional depth of 0.4 cm. The viramontes epidermis is notable for an irregular, viramontes-pink, papillary nodule measuring 1.1 x 0.9 x 0.4 cm. The nodule comes to within 0.1 cm of the peripheral margin. The deep margin is inked green and serial sections reveal viramontes-pink, rubbery surfaces that are confined to the epidermis. Submitted entirely as follows:B1. Tips, perpendicular (nodule is friable and only partially adherent to epidermis)B2. Remainder of specimen [facility] 10-15-2024 CPT:78968q7
[2024-10-15] MEDS: Lidocaine 1% /Epi 1:100 9 ML, Sodium Bicarbonate 1 MEQ OPERA.SITE (09:23)
[2024-10-15] MEDS: Bacitracin 500 UNITS/GM PACKET (09:44)
--- NOTE | 2024-10-15 09:50 | DCINST_ITS ---
Discharge Instructions Dressing / Incision Additional Dressing/Incision Instructions:: May shower over the site but do not scrub. Keep your back elevated (recliner position) for the next 4 nights to prevent swelling and bleeding. Take the oral antibiotic (Bactrim) 2 times a day until finished. Apply thin layer of antibiotic ointment (like Neosporin, bacitracin, or triple antibiotic ointment) 1 time a day. Follow Up Care Please Follow Up With: Olinda Berrios MD When: 1 to 2 weeks Test Results: Test results from this visit will be discussed in further detail at your follow- up appointment, if applicable. Discharge Plan Admission Attending Provider: Olinda Berrios Primary Care Provider: Vilma Min Instructions Print Language: Emirati Discharge Orders/Prescriptions Prescriptions: New sulfamethoxazole-trimethoprim [Bactrim] 400-80 mg tablet 1 tab PO BID 5 Days Qty: 10 0RF No Action levonorgestrel-ethinyl estrad [Altavera (28)] 0.15-0.03 mg tablet 1 tab PO DAILY Qty: 84 0RF sumatriptan succinate [Imitrex] 25 mg tablet See Rx Instructions PO .COMPLEX Qty: 7 0RF Rx Instructions: take 1 tab at onset of headache; if no relief may repeat 1 tab after at least 2 hrs; max = 4 tabs/24 hr PO Referrals / Follow Up: Vilma Min MD [Primary Care Provider] - Disposition Disposition (needs filled in before D/C Order can be placed): Home, Self Care
--- NOTE | 2024-10-15 09:52 | OP.PCM_ITS ---
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: No Type of Anesthesia: Local RN Documented Start/Stop Times: Operation Date: 10/15/24 09:20 Case Time Into Pre-Op 10/15/24 08:34 Out of Pre-Op 10/15/24 09:05 Into Room 10/15/24 09:08 Procedure Start 10/15/24 09:23 Procedure End 10/15/24 09:45 Anesthesia End 10/15/24 09:48 Out of Room 10/15/24 09:48 Into Phase II Recovery 10/15/24 09:49 Procedure Start Time: 09:23 Procedure Stop Time: 09:45 Select all DRAINS/GRAFTS/IMPLANTS that apply: None Estimated Blood Loss: Minimal Specimen collected: Yes Description of specimen(s) removed: Neoplasm x2 skin of the posterior scalp Description of surgery: The patient presents with 2 exophytic lesions to the posterior scalp which have been there for many years but have grown or changed. She presents for excision of the neoplasms with submission for pathologic evaluation. She is marked in the preop holding area prior to surgery and informed consent is obtained. The patient was brought to the operating room and placed on the operating room table in the prone position. The posterior scalp was prepped and draped in the usual sterile fashion. 1% Xylocaine with epinephrine buffered with sodium bicarb was used for local anesthetic. Following this, the sites are excised and passed off the operative field to be sent to pathology. Hemostasis is control led with cautery. The sites were then initially closed with interrupted silk suture. Following this, running and interrupted chromic sutures were used to further refine the closure. The initial approximation silk sutures then removed. Antibiotic ointment are placed on both sites. She tolerated the procedure well and was taken to the recovery area in awake and stable condition. Needle and sponge counts are correct. Surgical Findings: As above Complications Complications: No Admit VTE Documentation VTE Mechan Device Prophylaxis: None Reason prophylaxis not ordered: Treatment Not Indicated
[2024-10-15 09:59] VITALS: BP 113/61; BP 116/52; PULSE 66; RESP 16; TEMP 36.4; O2SAT 100
== END 2024-10-15 10:18 | disposition home or self-care (01) ==
LOC: SDC 08:30 → AC 08:31
PROVIDERS: PCP Internal Medicine; Referring Provider Plastic Surgery; Visit Provider Plastic Surgery
PROC: (CPT 11424; principal; 2024-10-15 09:10)
DX: D48.5 Neoplasm of uncertain behavior of skin (principal); D22.4 Melanocytic nevi of scalp and neck
CPT/HCPCS: 11424; 88305

== ENCOUNTER → 2024-11-04 | Outpatient (CLI) | payer OTHER, SELFPAY ==
[2024-11-04 12:01] LABS: hCG Titer Quant., Serum 390 mIU/mL (<9 non-preg)
== END | disposition home or self-care (01) ==
LOC: LAB 11:09
PROVIDERS: Nurse Practitioner Women's Health; PCP Internal Medicine; Visit Provider Nurse Practitioner Family
DX: Z34.90 Encounter for supervision of normal pregnancy, unspecified, unspecified trimester (principal)
CPT/HCPCS: 36415; 84702

== ENCOUNTER → 2024-11-09 | Outpatient (CLI) | payer OTHER, SELFPAY ==
[2024-11-09 14:08] LABS: hCG Titer Quant., Serum 1887 mIU/mL (<9 non-preg)
== END | disposition home or self-care (01) ==
LOC: LAB 12:22
PROVIDERS: Advanced Practice Midwife; PCP Internal Medicine; Visit Provider Nurse Practitioner Women's Health
DX: O20.0 Threatened abortion (principal); Z3A.00 Weeks of gestation of pregnancy not specified
CPT/HCPCS: 36415; 84702

== ENCOUNTER → 2024-11-11 | Outpatient (CLI) | payer OTHER, SELFPAY ==
[2024-11-11 11:27] LABS: hCG Titer Quant., Serum 395 mIU/mL (<9 non-preg)
== END | disposition home or self-care (01) ==
LOC: LAB.FUTURE 09:34
PROVIDERS: PCP Internal Medicine; Visit Provider Advanced Practice Midwife
DX: O20.0 Threatened abortion (principal); Z3A.00 Weeks of gestation of pregnancy not specified
CPT/HCPCS: 36415; 84702

== ENCOUNTER → 2024-11-18 | Outpatient (CLI) | payer OTHER, SELFPAY ==
[2024-11-18 11:52] LABS: hCG Titer Quant., Serum 19 mIU/mL (<9 non-preg)
== END | disposition home or self-care (01) ==
LOC: LAB 10:23
PROVIDERS: PCP Internal Medicine; Referring Provider Advanced Practice Midwife; Visit Provider Advanced Practice Midwife
DX: O03.9 Complete or unspecified spontaneous abortion without complication (principal)
CPT/HCPCS: 36415; 84702

== ENCOUNTER → 2024-11-22 | Outpatient (CLI) | payer OTHER, SELFPAY ==
[2024-11-22 14:12] LABS: hCG Titer Quant., Serum 5 mIU/mL (<9 non-preg)
== END | disposition home or self-care (01) ==
LOC: LAB 11:37
PROVIDERS: PCP Internal Medicine; Referring Provider Advanced Practice Midwife; Visit Provider Advanced Practice Midwife
DX: O03.9 Complete or unspecified spontaneous abortion without complication (principal)
CPT/HCPCS: 36415; 84702

== ENCOUNTER → 2024-12-01 | Outpatient (CLI) | payer OTHER, SELFPAY ==
[2024-12-01 10:32] LABS: Cholesterol 168 mg/dL (<=200); Glucose 88 mg/dL (70-99); High Density Lipoprotein 59 mg/dL; Low Density Lipoprotein Calc. 95 mg/dL; Triglycerides 69 mg/dL; Very Low Density Lipoprotein 14 mg/dL (5-40); Vitamin B12 419 pg/mL (180-914); Vitamin D,25 Hydroxy 19.4 ng/mL (30-100); cholesterol:hdl ratio screen 2.85
[2024-12-02 22:07] LABS: Chlamydia By Nucleic Acid AMP Negative (Negative); Gonococcus By Nucleic Acid AMP Negative (Negative)
== END | disposition home or self-care (01) ==
LOC: LAB 08:58
PROVIDERS: PCP Internal Medicine; Visit Provider Obstetrics & Gynecology
DX: Z13.220 Encounter for screening for lipoid disorders (principal); R53.83 Other fatigue; L60.3 Nail dystrophy; L65.9 Nonscarring hair loss, unspecified; Z13.29 Encounter for screening for other suspected endocrine disorder; Z13.1 Encounter for screening for diabetes mellitus; Z12.4 Encounter for screening for malignant neoplasm of cervix; Z11.3 Encounter for screening for infections with a predominantly sexual mode of transmission
CPT/HCPCS: 36415; 80061; 82306; 82607; 82947; 84439; 84443; 87491; 87591; 87624; 88175; G0145

== ENCOUNTER → 2024-12-08 | Outpatient (CLI) | payer OTHER, SELFPAY ==
--- NOTE | 2024-12-08 17:07 | US_ITS ---
PROCEDURE: THYROID, 12/08/2024 REASON FOR EXAM: ENLARGED THYROID TECHNIQUE: Grayscale and color Doppler imaging of the thyroid was performed. COMPARISON: None FINDINGS: Right lobe measures 5.3 x 1.6 x 1.6cm. Essentially homogeneous background echotexture. No abnormal vascularity. Tiny colloid cyst. No solid or mostly solid nodules are identified. Left lobe measures 4.4 x 1.4 x 1.2 cm. Essentially homogeneous background echotexture. No abnormal vascularity. No solid or mostly solid nodules are identified. Isthmus measures 2 mm in thickness. US/Thyroid IMPRESSION: 1. Assessment is TI-RADS 1. No solid or mostly solid identified. 2. Normal size gland with homogeneous echotexture. No abnormal vascularity. Recommendations per ACR Thyroid Imaging, Reporting and Data System (TI-RADS): April spann Paper of the ACR TI-RADS Committee, 2017 ([email or web address] Reading Location: [id number]
== END | disposition home or self-care (01) ==
LOC: US 14:57
PROVIDERS: PCP Internal Medicine; Referring Provider Obstetrics & Gynecology; Visit Provider Obstetrics & Gynecology
DX: E04.9 Nontoxic goiter, unspecified (principal)
CPT/HCPCS: 76536

== ENCOUNTER → 2024-12-15 | Outpatient (CLI) | payer OTHER, SELFPAY ==
[2024-12-15 17:23] LABS: Syphilis Antibodies Nonreactive (Nonreactive)
[2024-12-20 15:54] LABS: HSV Culture Without Typing NEGATIVE
== END | disposition home or self-care (01) ==
LOC: BWCLAB 14:27
PROVIDERS: PCP Internal Medicine; Referring Provider Nurse Practitioner Family; Visit Provider Nurse Practitioner Family
DX: Z11.3 Encounter for screening for infections with a predominantly sexual mode of transmission (principal)
CPT/HCPCS: 36415; 86780; 87255

== ENCOUNTER → 2025-01-26 | Outpatient (CLI) | payer OTHER, SELFPAY ==
--- NOTE | 2025-01-26 14:06 | RAD_ITS ---
EXAM: XR Cervical Spine Flexion/Extension Only, 2 or 3 Views CLINICAL INDICATION: BACK PAIN TECHNIQUE: Lateral flexion/extension views of the cervical spine. COMPARISON: No relevant prior studies available. FINDINGS: VERTEBRAE: Unremarkable. Normal alignment. No acute fracture or significant dynamic instability. DISC SPACES: No acute findings. No significant narrowing. SOFT TISSUES: Unremarkable. RAD/L/S Spine Min 4 Views IMPRESSION: No acute fracture or significant dynamic instability. Reading Location: [id number]
--- NOTE | 2025-01-26 14:06 | RAD_ITS ---
EXAM: XR Cervical Spine Flexion/Extension Only, 2 or 3 Views CLINICAL INDICATION: BACK PAIN TECHNIQUE: Lateral flexion/extension views of the cervical spine. COMPARISON: No relevant prior studies available. FINDINGS: VERTEBRAE: Unremarkable. Normal alignment. No acute fracture or significant dynamic instability. DISC SPACES: No acute findings. No significant narrowing. SOFT TISSUES: Unremarkable. RAD/L/S Spine Min 4 Views IMPRESSION: No acute fracture or significant dynamic instability. Reading Location: [id number]
== END | disposition home or self-care (01) ==
LOC: RAD 14:04
PROVIDERS: PCP Internal Medicine; Referring Provider Student in an Organized Health Care Education/Training Program; Visit Provider Student in an Organized Health Care Education/Training Program
DX: M54.9 Dorsalgia, unspecified (principal)
CPT/HCPCS: 72110

== ENCOUNTER → 2025-02-03 | Outpatient (CLI) | payer OTHER, SELFPAY ==
[2025-02-03 10:59] LABS: hCG Titer Quant., Serum < 1 mIU/mL (<9 non-preg)
--- OUTSIDE RECORDS SUMMARY | 2025-02-03 21:13 | XMS RPT_ITS | CCD ---
Author Organization [facility] Care Team Providers Care Electrician Technician Name Role Phone Kartik, Nelly Unavailable Unavailable [...] Doctor Assigned, Nodr Unavailable Unavail able Kartik, Enlly Unavailable Unavailable Kartik, Nelly Unavailable Unavailable No [...] Unavail able Katrin Pearson Primary Care Provider [place], Carole Unavailable Unavailable None, No PCP Unavailable Unavailable None, No PCP Unavailable Unavailable Unavailable Unavailable [place] DO, Carole Unavailable Unavailable None, No PCP Unavailable Unavailable [place] Katrin RUSSELL Primary Care Provider Unavailable Unavailable Ms. Jackie Barriga Attending Unavaila ble PCP, Pt States None Referring Unavailable FRIED, CNM, MANAGER CENTER NIKKI DHAVAL Attending Unava ilable FRIED, CNM, MANAGER CENTER NIKKI DHAVAL Referring Unava ilable FRIED, CNM, MANAGER CENTER NIKKI DHAVAL Attending Unava ilable FRIED, CNM, MANAGER CENTER NIKKI DHAVAL Referring Unava ilable MICHELE THORNTON Attending Unavailable PCP, Pt States None Referring Unavailable Silvano Grace MD Primary Care Pro vider Unavailable Primary Care Provider Unavailabl e NIKKI STEVENS Attending Unavailable SANJAY, SILVANO RADHA MOUNIR Primary Care Kemi vailable SANJAY, SILVANO RADHA MOUNIR Referring Kemi vailable SANJAY, SILVANO RADHA MOUNIR Primary Care Kemi vailable SANJAY, SILVANO RADHA MOUNIR Admitting Kemi vailable Lengl PA-CRustynt Benjamín Unavailable SANJAY, SILVANO H Primary Care Unavailable CONI LERNER Attending Unavailable SANJAY, SILVANO H Primary Care Unavailable ABBY SRINIVASAN Attending Unavailable Dr. Vilma Min MD Primary Care Provider Carisa Montalvo Attending Provider Carisa Montalvo Referring Provider Dr. Per Fairchild MD Attending Provider Emma COMFORT FILLER-CKirstie Attending Provider Emma COMFORT FILLER-CKirstie Referring Provider Assessment, Health Risk Attending Provider Unava ilable Agustina COLLINS, Dr. Prakash Attending Provider Agustina COLLINS, Dr. Prakash Referring Provider Agustina COLLINS, Dr. Prakash Other Provider [phone] Pako COLLINS, Dr. Esparza Primary Care Provider [phone] Pako COLLINS, Dr. Esparza Referring Provider Margaret Crockett Attending Provider Rae Nogueira CNM Attending Provider [phone] Rae Nogueira CNM Referring Provider [phone] Mega Marvin DO, Dr. Segura Attending Provider Mega Marvin DO, Dr. Segura Referring Provider Margaret Crockett Referring Provider SANJAY, SILVANO RADHA MOUNIR Primary Care Kemi vailable SANJAY, SILVANO RADHA MOUNIR Attending Kemi vailable SANJAY, SILVANO RADHA MOUNIR Primary Care Kemi vailable SANJAY, SILVANO RADHA MOUNIR Attending Kemi vailable SANJAY, SILVANO RADHA MOUNIR Primary Care Kemi vailable SANJAY, SILVANO RADHA MOUNIR Attending Kemi vailable SANJAY, SILVANO RADHA MOUNIR Primary Care Kemi vailable SANJAY, SILVANO RADHA MOUNIR Attending Kemi vailable Pako COLLINS, Dr. Esparza Primary Care Provider [phone] Dr. Per Fairchild MD Attending Provider [phone] Pako COLLINS, Dr. Esparza Primary Care Provider [phone] Kirstie Bhakta Attending Provider Devorah COLLINS, Dr. Albarado Attending Provider Brenda Rutherford Attending Provider Brenda Rutherford Referring Provider Pako, Vilma Referring Unavailable Pako, Vilma Primary Care Unavailable Imelda Metzger Attending Unavailabl e Pako, Vilma Primary Care Unavailable Charlotte COMFORT FILLER, Kirstie Attending Unavailable Emma COMFORT FILLER, Kirstie Referring Unavailable SANJAY, SILVANO Primary Care Unavailable Assessment, Health Risk Attending Unavaila ble Assessment, Health Risk Referring Unavaila ble Per Fairchild Attending Unavailable [place], Vilma Primary Care Unavailable SANJAY, SILAVNO Primary Care Unavailable Ana Paula Palmer Attending Unavailable Pako, Vilma Primary Care Unavailable Rae Nogueira Attending Unavailable Rae Nogueira Referring Unavailable Assessment, Health Risk Attending Unavaila ble Per Fairchild Attending Unavailable SANJAY, SILVANO Referring Unavailable SANJAY, SILVANO Primary Care Unavailable Taz Gaytan Attending Unavailable Per Fairchild Attending Unavailable Pako, Vilma Primary Care Unavailable Margaret Santizo Attending Unavailable Margaret Santizo Referring Unavailable Pako, Vilma Primary Care Unavailable [place], Vilma Primary Care Unavailable Imelda Metzger Attending Unavailabl e Vande VelVal finleyImelda Referring Unavailabl e [place], Vilma Primary Care Unavailable Imelda Metzger Attending Unavailabl e [place], Vilma Primary Care Unavailable Rae Nogueira Attending Unavailable Rae Nogueira Referring Unavailable Pako, Vilma Primary Care Unavailable Rae Nogueira Attending Unavailable Pako, Vilma Primary Care Unavailable Emma COMFORT FILLER, Kirstie Attending Unavailable Margaret Santizo Attending Unavailable Pako, Vilma Primary Care Unavailable Margaret Santizo Attending Unavailable Pako, Vilma Referring Unavailable [place], Vilma Primary Care Unavailable SANJAY, SILVANO Primary Care Unavailable Charlotte COMFORT FILLER, Kirstie Referring Unavailable Emma COMFORT FILLER, Kirstie Attending Unavailable Pako, Vilma Primary Care Unavailable Carisa Mohan Attending Unavailable Carisa Mohan Referring Unavailable Brenda Crawford Attending Unavailable Brenda Crawford Referring Unavailable Pako, Vilma Primary Care Unavailable Per Fairchild Attending Unavailable Pako, Vilma Primary Care Unavailable [place], Vilma Primary Care Unavailable [place], Olinda Referring Unavailable MichaelazoBooneesa Attending Unavailable SANJAY, SILVANO Primary Care Unavailable Ana Paula Palmer Attending Unavailable Ana Paula Palmer Referring Unavailable Derrell Monaco Attending Unavailable Pako, Vilma Primary Care Unavailable [place], Vilma Referring Unavailable [place], Olinda Attending Unavailable Pako, Vilma Primary Care Unavailable Carisa Mohan Attending Unavailable [place], Vilma Primary Care Unavailable Kirstie Carter NP Attending Unavailable SANJAY, SILVANO Referring Unavailable Pako, Vilma Primary Care Unavailable [place], Olinda Referring Unavailable [place], Olinda Consulting Unavailable [place], Olinda Attending Unavailable SANJAY, SILVANO Referring Unavailable SANJAY, SILVANO Primary Care Unavailable Carisa Mohan Attending Unavailable Pako, Vilma Referring Unavailable Gabirella Larry Attending Unavailable [place], Vilma Primary Care Unavailable Pako, Vilma Referring Unavailable Pako, Vilma Primary Care Unavailable Imelda Metzger Attending Unavailabl e SANJAY, SILVANO Referring Unavailable SANJAY, SILVANO Primary Care Unavailable [place], Vilma Attending Unavailable SANJAY, SILVANO Referring Unavailable SANJAY, SILVANO Primary Care Unavailable Kirstie Carter NP Attending Unavailable SANJAY, SILVANO Referring Unavailable SANJAY, SILVANO Primary Care Unavailable Ana Paula Palmer Attending Unavailable Margaret Santizo Attending Unavailable [place], Vilma Referring Unavailable [place], Vilma Primary Care Unavailable Paul Hatch Attending Unavailable SANJAY, SILVANO Referring Unavailable SANJAY, SILVANO Primary Care Unavailable Taz Gaytan Attending Unavailable [place], Vilma Referring Unavailable [place], Vilma Primary Care Unavailable [place], Olinda Attending Unavailable [place], Olinda Attending Unavailable SANJAY, SILVANO Primary Care Unavailable Ana Paula Palmer Attending Unavailable Allergies Allergy Classification Reported Allergen(s) Allergy Type Date of Onset Reaction(s) Facility Amoxicillin / Clavulanate (3 sources) Amoxicillin / Clavulanate; Translations: [Augmentin] Drug Allergy 0 Diarrhea [facility] (7 sources) amoxicillin / clavulanate; Translations: [Augmentin] Drug Allergy Diarrhea [facility] Repository (1 source) No Known Allergies; Translations: [No Known Allergies] Propensity to adverse reactions to drug (disorder) [facility] Repository (19 sources) Amoxicillin / Clavulanate; Translations: [AMOXICILLIN-POT CLAVULANATE] Drug Allergy 0 Diarrhea [facility] (9 sources) Amoxicillin Drug Allergy 5 Diarrhea [facility] (9 sources) Clavulanate Drug Allergy 5 Diarrhea [facility] (1 source) Amoxicillin Drug Allergy 5 [facility] Repository (1 source) Clavulanate Drug Allergy 5 [facility] Repository Medications Current Medications Medication Drug Class(es) Dates Sig (Normalized) Sig (Original) 21 day ethinyl estradiol 0.022378 mg/hr / etonogestrel 0.005 mg/hr vaginal system (11 sources) Progestin, Estrogen Start: 10-20-2023 End: 10-19-2024 etonogestreL-ethin yl estradioL (NUVARING) 0.12-0.015 mg/24 hr vaginal ring Indications: control counseling Insert vaginally and leave in place for 3 consecutive weeks, then remove for 1 week. . 1 each 10/20/2023 10/19/2024 Active Start: 06-17-2019 End: 07-24-2021 etonogestrel-ethinyl estradi ol (NUVARING) 0.12-0.015 mg/24 hr vaginal ring Indications: control counseling Insert vaginally and leave in place for 3 consecutive weeks, then remove for 1 week. . 3 each 3 06/17/2019 07/24/2021 Discontinued Levonorgestrel-Ethinyl Estrad (20 sources) Progestin, Estrogen, Progestin-containing Intrauterine Device Start: 12-01-2024 Levonorgestrel-Ethinyl Estrad (Altavera (28)) 0.15-0.03 mg tablet Active 1 {tbl} PO DAILY 84 4 December 01, 2024 8:38am Start: 12-01-2024 Levonorgestrel -Ethinyl Estrad (Altavera (28)) 0.15-0.03 mg tablet Active 1 {tbl} PO DAILY 84 December 01, 2024 8:38am Start: 11-23-2024 End: 12-01-2024 Levonorgestrel-Ethinyl Estra d (Altavera (28)) 0.15-0.03 mg tablet Discontinued 1 {tbl} PO DAILY 84 November 23, 2024 9:27am December 01, 2024 8:38am Start: 11-23-2024 End: 12-01-2024 Levonorgestrel-Ethinyl Estra d (Altavera (28)) 0.15-0.03 mg tablet Discontinued 1 {tbl} PO DAILY November 23, 2024 9:27am December 01, 2024 8:38am Start: 11-23-2024 Levonorgestrel -Ethinyl Estrad (Altavera (28)) 0.15-0.03 mg tablet Active 1 {tbl} PO DAILY November 23, 2024 9:27am Start: 08-02-2024 End: 11-23-2024 Levonorgestrel-Ethinyl Estra d (Altavera (28)) 0.15-0.03 mg tablet Discontinued 1 {tbl} PO DAILY 84 August 02, 2024 2:40pm November 23, 2024 9:27am Start: 08-02-2024 End: 11-23-2024 Levonorgestrel-Ethinyl Estra d (Altavera (28)) 0.15-0.03 mg tablet Discontinued 1 {tbl} PO DAILY August 02, 2024 2:40pm November 23, 2024 9:27am Start: 08-02-2024 Levonorgestrel -Ethinyl Estrad (Altavera (28)) 0.15-0.03 mg tablet Active 1 {tbl} PO DAILY August 02, 2024 2:40pm Start: 05-12-2024 End: 08-02-2024 Levonorgestrel-Ethinyl Estra d (Altavera (28)) 0.15-0.03 mg tablet Discontinued 1 {tbl} PO DAILY 84 May 12, 2024 12:00am August 02, 2024 2:41pm Start: 05-12-2024 End: 08-02-2024 Levonorgestrel-Ethinyl Estra d (Altavera (28)) 0.15-0.03 mg tablet Discontinued 1 {tbl} PO DAILY May 12, 2024 12:00am August 02, 2024 2:41pm sertraline 25 mg oral tablet (4 sources) Serotonin Reuptake Inhibitor Start: 07-24-2021 End: 03-23-2022 take 1 tablet by mouth once daily sertraline (ZOLOFT) 25 MG tablet Indications: Anxiety with depression Take 1 (one) tablet (25 mg total) by mouth daily . 90 tablet 1 09/24/2021 03/23/2022 Active Completed/Discontinued Medications Medication Drug Class(es) Dates Sig (Normalized) Sig (Original) clotrimazole 10 mg/ml topical cream (19 sources) Azole Antifungal Start: 03-05-2024 End: 03-18-2024 Clotrimazole 1 % cream Discontinued 1 NMA TOPICAL TWICE A DAY March 05, 2024 12:00am March 18, 2024 10:34am Start: 09-18-2023 End: 09-17-2024 clotrimazole (LOTRIMIN) 1 % cream Indications: Vaginal discharge Apply topically 2 (two) times a day . 30 g 09/18/2023 09/17/2024 Active docusate sodium 100 mg oral capsule (3 sources) Start: 03-01-2020 take 1 capsule by mouth twice daily as needed Docusate Sodium 100 MG Oral Capsule TAKE 1 CAPSULE TWICE DAILY NEEDED. Quantity: 60 Refills: 6 Carole Mancuso DO Start : 01-Mar-2020 Active drospirenone / Ethinyl Estradiol (2 sources) Progestin, Estrogen End: 09-18-2023 take 1 tablet by mouth once daily, then take 3 tablets by mouth once drospirenone-ethiny l estradioL (SHAI) 3-0.03 mg per tablet Take 1 (one) tablet by mouth daily . 0 09/18/2023 Discontinued Norethindrone-E.Estr adiol-Iron (20 sources) Estrogen Start: 03-05-2024 End: 05-12-2024 take 1 tablet by mouth once daily Norethindrone-E.Est radiol-Iron (Lo Loestrin Fe) 1 mg-10 mcg (24)/10 mcg (2) tablet Discontinued 1 {tbl} PO DAILY March 05, 2024 12:00am May 12, 2024 2:22pm Start: 06-17-2023 take 1 tablet by shade th once daily norethindrone-e.estradioL-iron (Lo Loest rin Fe) 1 mg-10 mcg (24)/10 mcg (2) tablet Indications: Encounter for surveillance of contraceptive pills Take 1 tablet by mouth once daily. 28 tablet 11 06/17/2023 Active Start: 02-20-2023 Lo Loestrin Fe 1 mg-10 mcg (24)/10 mcg (2) Tab 02/20/2023 Active Start: 02-20-2023 take 1 tablet by shade th once daily Lo Loestrin Fe 1 mg-10 mcg (24)/10 mcg ( 2) tablet Take 1 tablet by mouth once daily. 0 02/20/2023 Active Start: 02-20-2023 Lo Loestrin Fe 1 mg-10 mcg (24)/10 mcg (2) Tab Norgestimate-Ethinyl Estradiol (13 sources) Progestin, Estrogen Start: 05-12-2024 End: 05-12-2024 Norgestimate-Ethinyl Estradiol (Tri-Lo-Daphne) 0.18/0.215/0.25 mg-25 mcg tablet Discontinued 1 {tbl} PO daily May 12, 2024 12:00am May 12, 2024 2:34pm Start: 02-09-2024 take 1 tablet by shade th once daily norgestimate-ethinyl estradioL (Cks-Rr-Lbqcqwjz) 0.18/0.215/0.25 mg-25 mcg per tablet Take 1 (one) tablet by mouth daily . 30 tablet 11 02/09/2024 Active Start: 12-09-2023 End: 02-07-2024 take 1 tablet by mouth once daily norgestimate-ethinyl estradioL (Nqf-Mt-Vpcbhrcp) 0.18/0.215/0.25 mg-25 mcg per tablet Take 1 (one) tablet by mouth daily . 30 tablet 1 12/09/2023 02/07/2024 Discontinued (Reorder (Suppress CancelRx Message to Pharmacy)) Start: 12-09-2023 take 1 tablet by shade th once daily norgestimate-ethinyl estradioL (Nmu-Yu-Meexznnc) 0.18/0.215/0.25 mg-25 mcg per tablet Take 1 (one) tablet by mouth daily . 30 tablet 1 12/09/2023 Active Start: 11-13-2023 End: 12-06-2023 take 1 tablet by mouth once daily norgestimate-ethinyl estradioL (Fko-Ac-Brmtlfoo) 0.18/0.215/0.25 mg-25 mcg per tablet Take 1 (one) tablet by mouth daily . 30 tablet 1 11/13/2023 12/06/2023 Discontinued (Reorder (Suppress CancelRx Message to Pharmacy)) fluconazole 150 mg oral tablet (9 sources) Azole Antifungal Start: 04-02-2024 End: 05-12-2024 Fluconazole 150 mg tablet Discontinued 150 mg PO Every 3 Days 2 0 April 02, 2024 12:00am May 12, 2024 2:22pm november repeat second dose 72 hrs after first dose if symptoms persist hydrocortisone 25 mg/ml topical cream (1 source) Corticosteroid Start: 10-29-2022 End: 05-02-2023 hydrocortisone (ANUSOL-HC) 2.5 % rectal cream Indications: Hemorrhoids, unspecified hemorrhoid type Insert into the rectum 2 (two) times a day . 30 g 0 10/29/2022 05/02/2023 Discontinued Lactobacillus Acidophilus 10 billion cell capsule (9 sources) Start: 03-22-2024 End: 03-29-2024 Lactobacillus Acidophilus 10 billion cell capsule Discontinued [id number] NMA PO TWICE A DAY 14 7 0 March 22, 2024 12:00am March 28, 2024 12:00am March 29, 2024 12:04am Start: 03-22-2024 End: 03-29-2024 Lactobacillus Acidophilus 10 billion cell capsule Discontinued [id number] NMA PO TWICE A DAY 14 March 22, 2024 12:00am March 28, 2024 12:00am March 29, 2024 12:04am levonorgestrel 0.261553 mg/hr intrauterine system (8 sources) Progestin, Progestin-containing Intrauterine Device Liletta (52 MG) 19.5 MCG/DAY IUD Quantity: 0 Refills: 0 Ordered: 15-Dec-2020 DO Active levonorgestreL ( LILETTA) 20.1 mcg/24 hrs (6 yrs) 52 mg IUD IUD 1 each by Intrauterine route once . 0 Active metoclopramide 5 mg oral tablet (9 sources) Dopamine-2 Receptor Antagonist Start: 05-22-2024 End: 06-05-2024 take 1 tablet by mouth 30 minutes before mealtime Metoclopramide Hcl 5 mg tablet Discontinued 5 mg PO before meals 42 14 0 May 22, 2024 1:00am June 04, 2024 1:00am June 05, 2024 1:16am administer 30 minutes before meals metroNIDAZOLE 0.01 mg/mg topical gel (9 sources) Nitroimidazole Antimicrobial Start: 05-24-2024 End: 10-15-2024 Metronidazole (Metrogel) 1 % gel Discontinued 1 NMA TOPICAL AT BEDTIME 60 0 May 24, 2024 1:00am October 15, 2024 8:39am ondansetron 4 mg oral tablet (3 sources) Serotonin-3 Receptor Antagonist Start: 03-29-2020 take 1 tablet by mouth every six hours as needed for nausea Ondansetron HCl - 4 MG Oral Tablet TAKE 1 TABLET Every 6 hours PRN nausea Quantity: 20 Refills: 3 , Carole Start : 29-Mar-2020 Active pantoprazole 20 mg delayed release oral tablet (9 sources) Proton Pump Inhibitor Start: 03-22-2024 End: 05-12-2024 take 1 tablet by mouth twice daily Pantoprazole 20 mg tablet,delayed release (DR/EC) Discontinued 20 mg PO TWICE A DAY 60 2 March 22, 2024 12:00am May 12, 2024 2:22pm PNV Plus Multivitamin 27-1 MG Oral Tablet (1 source) Start: 03-01-2020 take 1 tablet by mouth once daily PNV Plus Multivitamin 27-1 MG Oral Tablet TAKE 1 TABLET DAILY. Quantity: 30 Refills: 11 Naif Carole Start : 01-Mar-2020 Active PNV Plus Multivitamin 27-1 MG TABS (2 sources) Start: 03-01-2020 PNV Plus Multivitamin 27-1 MG TABS TAKE 1 TABLET DAILY. Quantity: 30 Refills: 11 [place] Carole Start : 01-Mar-2020 Active PNV Plus Multivitamin TABS (2 sources) PNV Plu s Multivitamin TABS Refills: 0 Active PNV Plus Multivitamin TABS (1 source) PNV Plu s Multivitamin TABS Refills: 0 DO Active rifAXIMin 550 mg oral tablet (9 sources) Rifamycin Antibacterial Start: 03-22-2024 End: 05-12-2024 take 1 tablet by mouth three times daily Rifaximin 550 mg tablet Discontinued 550 mg PO THREE TIMES A DAY 42 14 2 March 22, 2024 12:00am May 12, 2024 2:22pm IBS-D sulfamethoxazole 400 mg / trimethoprim 80 mg oral tablet (9 sources) Dihydrofolate Reductase Inhibitor Antibacterial, Sulfonamide Antimicrobial Start: 10-15-2024 End: 10-26-2024 Sulfamethoxazole-T rimethoprim (Bactrim) 400-80 mg tablet Discontinued 1 {tbl} PO TWICE A DAY 10 5 0 October 15, 2024 12:00am October 26, 2024 2:19pm SUMAtriptan 25 mg oral tablet (20 sources) Serotonin-1b and Serotonin-1d Receptor Agonist Start: 05-24-2024 End: 11-24-2024 take 1 tablet by mouth every two hours Sumatriptan Succinate (Imitrex) 25 mg tablet Discontinued 0 PO .COMPLEX 7 0 November 23, 2024 10:28am November 24, 2024 9:01am take 1 tab at onset of headache; if no relief may repeat 1 tab after at least 2 hrs; max = 4 tabs/24 hr PO Problems Active Problems Problem Classification Problem Date Documented Da te Episodic/Chronic Acute bronchitis (2 sources) Acute bronchitis, unspecified; Translations: [Acute bronchitis, unspecified] Onset: 02-09-2024 Episodic Contraceptive and procreative management (13 sources) Intrauterine contraceptive device in situ; Translations: [Surveillance of intrauterine contraceptive device] Onset: 06-17-2023 06-17-2023 Episodic Comment on above: 11/28/2020; LILETTA; Hemorrhage during ; abruptio placenta; placenta previa (1 source) Threatened ; Translations: [Threatened ] Onset: 11-16-2024 Episodic Immunizations and screening for infectious disease (20 sources) Patient encounter status; Translations: [Screening examination for venereal disease] Onset: 06-17-2019 06-17-2019 Episodic Malaise and fatigue (12 sources) Fatigue; Translations: [Other fatigue] Onset: 12-01-2024 12-01-2024 Episodic Neoplasms of unspecified nature or uncertain behavior (20 sources) Neoplasm of uncertain behavior of skin; Translations: [Neoplasm of uncertain behavior of skin] Onset: 11-15-2024 10-13-2024 Episodic Other and unspecified benign neoplasm (16 sources) Benign neoplasm of skin of scalp; Translations: [Other benign neoplasm of skin of scalp and neck] 10-26-2024 Episodic Other complications of (3 sources) Placental abnormality; Translations: [Abnormal placental ultrasound] Episodic Other complications of (3 sources) Nausea and vomiting; Translations: [Unspecified vomiting of , unspecified as to episode of care or not applicable] Episodic Other female genital disorders (12 sources) Pain in female genitalia on intercourse; Translations: [Unspecified dyspareunia] Onset: 09-18-2023 09-18-2023 Chronic Other female genital disorders (9 sources) Abnormal uterine bleeding; Translations: [Abnormal uterine and vaginal bleeding, unspecified] 08-30-2024 Chronic Other female genital disorders (1 source) Abnormal uterine and vaginal bleeding, unspecified; Translations: [Abnormal uterine and vaginal bleeding, unspecified] Onset: 09-16-2024 Chronic Other gastrointestinal disorders (9 sources) Irritable bowel syndrome; Translations: [Irritable bowel syndrome without diarrhea] 05-24-2024 Chronic Other gastrointestinal disorders (1 source) Irritable bowel syndrome without diarrhea; Translations: [Irritable bowel syndrome, unspecified] Onset: 06-08-2024 Chronic Other gastrointestinal disorders (8 sources) Chronic constipation; Translations: [Constipation, unspecified] Episodic Other gastrointestinal disorders (9 sources) Small bowel bacterial overgrowth syndrome; Translations: [Small intestinal bacterial overgrowth (SIBO)] 03-22-2024 Episodic Other non-traumatic joint disorders (3 sources) Pain in wrist; Translations: [Pain in joint, forearm] Episodic Other and delivery including normal (20 sources) Delivery normal; Translations: [ care status] Onset: 11-09-2024 11-23-2024 Episodic Comment on above: 10/03/2020-39 weeks, vaginal, male, #7 15oz 01/10/2018_40weeks_Female_7# 4oz; Other screening for suspected conditions (not mental disorders or infectious disease) (9 sources) Urine test negative; Translations: [ examination or test, negative result] Onset: 06-17-2023 06-17-2023 Episodic Other skin disorders (1 source) Skin tag; Translations: [Skin tag] Episodic Other skin disorders (11 sources) Trachyonychia; Translations: [Nail dystrophy] 12-01-2024 Episodic Other skin disorders (11 sources) Loss of hair; Translations: [Nonscarring hair loss, unspecified] 12-01-2024 Episodic Other skin disorders (6 sources) Epidermoid cyst; Translations: [Epidermal cyst] 12-15-2024 Episodic Other skin disorders (1 source) Epidermal cyst; Translations: [Epidermal cyst] Onset: 12-15-2024 Episodic Other skin disorders (1 source) Nail dystrophy; Translations: [Nail dystrophy] Onset: 12-01-2024 Episodic Other skin disorders (1 source) Nonscarring hair loss, unspecified; Translations: [Nonscarring hair loss, unspecified] Onset: 12-01-2024 Episodic Other upper respiratory infections (11 sources) Acute sinusitis, unspecified; Translations: [Acute upper respiratory infection] Onset: 02-18-2024 Episodic Residual codes; unclassified (1 source) Gestation period, 20 weeks; Translations: [20 weeks gestation of ] Episodic Residual codes; unclassified (1 source) Gestation period, 27 weeks; Translations: [ with 27 completed weeks gestation] Episodic Spondylosis; intervertebral disc disorders; other back problems (1 source) Dorsalgia, unspecified; Translations: [Dorsalgia, unspecified] Onset: 01-31-2025 Episodic Spontaneous (9 sources) Miscarriage; Translations: [Complete or unspecified spontaneous without complication] Onset: 11-25-2024 11-23-2024 Episodic Comment on above: 10/2024 Thyroid disorders (12 sources) Goiter; Translations: [Nontoxic goiter, unspecified] Onset: 12-13-2024 12-01-2024 Chronic Unclassified (1 source) Cough, unspecified; Translations: [Cough, unspecified] Onset: 03-03-2024 Viral infection (6 sources) Other specified viral infection; Translations: [Disease caused by 2019-nCoV] Episodic Past or Other Problems Problem Classification Problem Date Documented Da te Episodic/Chronic Abdominal pain (14 sources) Abdominal discomfort; Translations: [Unspecified abdominal pain] Onset: 10-29-2022 10-29-2022 Episodic Administrative/social admission (16 sources) Multigravida; Translations: [Patient encounter status] Onset: 09-18-2023 09-18-2023 Episodic Anxiety disorders (20 sources) Mixed anxiety and depressive disorder; Translations: [Other specified anxiety disorders] Onset: 05-21-2019 Resolved: 10-29-2022 05-21-2019 Chronic E Codes: Natural/environment (16 sources) Insect bite - wound; Translations: [Bitten or stung by nonvenomous insect and other nonvenomous arthropods, initial encounter] Onset: 07-24-2021 Episodic Gastrointestinal hemorrhage (10 sources) Rectal hemorrhage; Translations: [Hemorrhage of anus and rectum] Onset: 07-28-2024 07-01-2024 Episodic Genitourinary symptoms and ill-defined conditions (2 sources) Other symptoms and signs involving the genitourinary system; Translations: [Other symptoms and signs involving the genitourinary system] Onset: 10-29-2022 Episodic Hemorrhoids (12 sources) Hemorrhoids; Translations: [Unspecified hemorrhoids] Onset: 10-29-2022 05-02-2023 Episodic Other and unspecified benign neoplasm (12 sources) Pigmented skin lesion ; Translations: [Melanocytic nevi, unspecified] Onset: 05-01-2023 05-01-2023 Episodic Other female genital disorders (12 sources) Vaginal discharge; Translations: [Other specified noninflammatory disorders of vagina] Onset: 09-18-2023 09-18-2023 Episodic Other female genital disorders (1 source) Other specified noninflammatory disorders of vagina; Translations: [Other specified noninflammatory disorders of vagina] Onset: 05-31-2024 Episodic Other lower respiratory disease (12 sources) Rib pain; Translations: [Pleurodynia] Onset: 05-02-2023 05-02-2023 Episodic Residual codes; unclassified (1 source) Gestation [...] Test Name Value Interpretation Reference Range Facility L/S Spine Min 4 Viewson 01-11 L/S Spine Min 4 Views [facility] Imaging Services [address] [place] [address] L/S Spine Min 4 Views MR#: [id number] Acct: [id number] Name: STEFANIA NICOLE Rep #: [id number] : 1990 F 34 From: Daniel Cordova MD PCP: Dr. Vilma Min MD Status: REG CLI Study: L/S Spine Min 4 Views Date of Exam: 01/26/25 Exam# [id number] Ordering Dr: Brenda Crawford EXAM: XR Cervical Spine Flexion/Extension Only, 2 or 3 Views CLINICAL INDICATION: BACK PAIN TECHNIQUE: Lateral flexion/extension views of the cervical spine. COMPARISON: No relevant prior studies available. FINDINGS: VERTEBRAE: Unremarkable. Normal alignment. No acute fracture or significant dynamic instability. DISC SPACES: No acute findings. No significant narrowing. SOFT TISSUES: Unremarkable. RAD/L/S Spine Min 4 Views IMPRESSION: No acute fracture or significant dynamic instability. Reading Location: [facility] CC: SARAH Smith; Dr. Vilma Min MD Fire Pilot: Signed Normal [facility] PAP IG HPV APTIMA 16/18,45on 01-10-2025 ORDER Normal [facility] Comment on above: Order Comment: RESUL TS FAXED TO [facility] 12/15/24 Donal Ro Dobbs.LEA AT OFFICE NOTIFIED THAT FAX WOULD BE COMING.Clinical Info: ANNUAL - Non Collection Vial: Thin Prep VialGYN Source: CERVICALDate LMP/Menopause: N/ACollection Techniques: CX BROOM ONLY Result Comment: IGP, Aptima HPV, rfx 16/18,45; Physician Read Pap INTERPRETATION: EPITHELIAL CELL ABNORMALITY. LOW GRADE SQUAMOUS INTRAEPITHELIAL LESION (LSIL). Recommendation(s) Suggest follow up as clinically appropriate. Pathologist Provided ICD Code(s) R87.612 Specimen Adequacy: Satisfactory for evaluation. Endocervical and/or squamous metaplastic cells (endocervical component) are present. COMMENTS: The Pap smear is a screening test designed to aid in the detection of premalignant and malignant conditions of the uterine cervix. It is not a diagnostic procedure and should not be used as the sole means of detecting cervical cancer. Both false-positive and false-negative reports do occur. This liquid based ThinPrep(R) pap test was screened with the use of an image guided system. Performed by Opal Haywood, Director Of Infection Control (ASCP) Electronically signed by Charlene Kunz MD, Pathologist This nucleic acid amplification test detects fourteen high-risk HPV types (16,18,31,33,35,39,45,51,52,56,58,59,66,68) without differentiation. HPV RESULTS: HPV Aptima: Positive HPV Genotype Reflex Criteria not met, HPV Genotype not performed. TESTING PERFORMED AT [facility]. ORIGINAL REPORT ON FILE IN LAB CONTAINS ADDITIONAL TEST SITE INFORMATION. Performed By: #### L 700.8000 #### [facility] Laboratory [address]. [place], [place], [id number] HSV Culture Screenon 025 HSV CULTURE Negative Normal [facility] Comment on above: Performed By: #### L 500.4100, L501.9520, L506.1001, L501.0100, L503.0106, L506.0400 #### [facility] [address] [place], [address] Herpes simplex virus (HSV) c ultureOrdered By: Margaret Santizo on 12-15-2024 HSV identified Org specific cx Nom (Unsp spec) Negative [facility] Professional Bondsman Office Visit Reporton 12-15-2024 Professional Bondsman Office Visit Report [facility]'s [address], [address] [place] [address] OFFICE VISIT Date of Service: 12/15/24 MR#: [id number] Acct: [id number] Name: STEFANIA NICOLE Rep #: [id number] : 1990 Provider: NEELAM Harrison Age/Sex: 34/F [place] [facility] [place] Status: Signed Intake Vital Signs 12/01/24 08:28 12/15/24 14:00 12/15/24 14:04 Height 5 ft 2 in 5 ft 2 in 5 ft 2 in Weight: 145 lb BMI 26.5 BP 127/85 H Intake Visit Reasons: genital lesion Manager Company Required: No Is patient in pain?: No Allergies amoxicillin (From Augmentin) Allergy (Mild, Verified 12/15/24 14:00) Diarrhea clavulanic acid (From Augmentin) Allergy (Mild, Verified 12/15/24 14:00) Diarrhea Medications ???Medication ???Instructions ???Recorded ???Confirmed ???Type sumatriptan succinate 25 mg tablet See Rx Instructions PO .COMPLEX 11/24/24 12/15/24 Rx (Imitrex) #14 tabs levonorgestrel 0.15 mg-ethinyl 1 tab PO DAILY #84 tabs 12/01/24 0 12/15/24 Rx estradiol 0.03 mg tablet (Altavera (28)) Is last menstrual period known: No Post menopausal: No Patient : No : No Control Method: ocp- altavera ON LICENSE OF [facility] Medical History GERD (gastroesophageal reflux disease) Frequent headaches History of IBS UTI (urinary tract infection) Back problem Allergies Surgical History No significant past surgical history Family History Grandfather Cancer Lung- maternal AA (alcohol abuse) Grandmother Breast cancer Paternal Diabetes AA (alcohol abuse) Father Diabetes Grandmother Diabetes Grandfather Heart disease Mother AA (alcohol abuse) Hypertension Father Hypertension Diabetes Social History (Updated 12/15/24 @ 14:10 by Kathy Javier) adopted: No household members: significant other number of children: 2 current occupational status: employed 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 Currently seeing someone HPI genital lesion Details: STEFANIA NICOLE is a 34 year old who presents for a genital lesion; she reports she notices a red, irritating bump. Denies pain to this. Started bleeding this morning. She reports she is sexually active; new partner--recent testing last week for GC/CH. Pap pending. Female Reproductive History Questions: metorrhagia: No, sexually active: Yes, dyspareunia: No and PCB: No History 3 Elective abortions Hx Para 2 Spontaneous abortions 1 Hx # Term Pregnancies Ectopic pregnancies Hx # Pregnancies Multiple births # of living children 2 Past Pregnancies Del. Date Name GA/Weeks Outcome Route Bth Weight Gen Labor Lgth Anesthesia Del Locatn Provider FOB Unknown Nita Unknown Pavel ROS Const Constitutional: Denies body ache, chills, fatigue, fever(s), poor appetite, lethargy or malaise Cardio Card: Reports system reviewed and no additional complaints, except as documented GI GI: Reports system reviewed and no additional complaints, except as documented : Reports system reviewed and no additional complaints, except as documented Exam Const General: cooperative, healthy appearing, comfortable, no acute distress, well developed and well groomed Resp Effort Inspection: normal respiratory effort External Female Exam: normal external appearance (left vulvar inclusion cyst; open. ) and normal appearance of the urethra Urethra: normal appearance of the urethra and normal palpation Speculum Exam - Vagina: normal appearance of the vagina and normal vaginal discharge Speculum Exam - Cervix: normal appearance of the cervix, no cervical discharge and no lesions Neuro General: patient alert, moves all extremities and no focal motor deficits Psych Appearance: grossly normal Mental Status: mental status grossly normal Affect: normal affect Speech and Movement: speech and movement normal Attitude: cooperative Coding Level of Care Code Established Pt Off vis,est,level 3 Patient Type Established Diagnoses Possible exposure to STI Z20.2 Inclusion cyst L72.0 Assessment and Plan Assessment and Plan (1) Possible exposure to STI: Status: Acute Plan: HSV culture obtained; final plan with results. recent GC/CH negative. (2) Inclusion cyst: Status: Acute Plan: Suspected; warm compress. Monitor for worsening or signs/symptoms infection. STD testing obtained to rule out and ensure d/t new partner. Orders: Orders Syphilis Antibodies (more content not included)... Normal [facility] Syphilis Antibodieson 2024 Syphilis Abs Non-Reactive Normal Nonreactive [facility] Comment on above: Performed By: #### L 700.8000 #### [facility] [address] [place], [place], [address] Influenza virus A and B and SARS-CoV-2 (COVID-19) and Respiratory syncytial virus RNAOrdered By: Per Fairchild on 12-10-2024 SARS-CoV-2 (COVID-19) RNA IJM+probe Ql (Unsp spec) [facility] M100.678on 12-10-2024 M100.678 Pending SARS-CoV-2 (COVID 19) Negative INFLUENZA A Negative INFLUENZA B Negative RSV PCR Negative Normal [facility] Comment on above: Performed By: #### L 500.4100, L501.9520, L506.1001, L501.0100, L503.0106, L506.0400 #### [facility] [address] [place], [place], [address] Thyroidon 12-08-2024 Thyroid [facility] Imaging Services [address] [place], [place] [address] Thyroid MR#: [id number] Acct: [id number] Name: STEFANIA NICOLE Rep #: [id number] : 1990 F 34 From: Daniel Gilbert MD PCP: Dr. Vilma Min MD Status: REG CLI Study: Thyroid Date of Exam: 12/08/24 Exam# [id number] Ordering Dr: Imelda Metzger DO PROCEDURE: THYROID, 12/08/2024 REASON FOR EXAM: ENLARGED THYROID TECHNIQUE: Grayscale and color Doppler imaging of the thyroid was performed. COMPARISON: None FINDINGS: Right lobe measures 5.3 x 1.6 x 1.6cm. Essentially homogeneous background echotexture. No abnormal vascularity. Tiny colloid cyst. No solid or mostly solid nodules are identified. Left lobe measures 4.4 x 1.4 x 1.2 cm. Essentially homogeneous background echotexture. No abnormal vascularity. No solid or mostly solid nodules are identified. Isthmus measures 2 mm in thickness. US/Thyroid IMPRESSION: 1. Assessment is TI-RADS 1. No solid or mostly solid identified. 2. Normal size gland with homogeneous echotexture. No abnormal vascularity. Recommendations per ACR Thyroid Imaging, Reporting and Data System (TI-RADS): White Paper of the ACR TI-RADS Committee, 2017 (https://[email or web address].Indiewalls/retrieve/pii/[email or web address]) Reading Location: [id number] CC: Dr. Vilma Min MD; Dr. Imelda Metzger DO Fire Pilot: Signed Normal [facility] Chlamydia/GC JIM aptimaon CHLAMY,NUC ACID Negative Normal Negative [facility] Comment on above: Performed By: #### L 700.8000 #### [facility] [address] [place], [address] GC BY NUC ACID Negative Normal Negative [facility] Comment on above: Result Comment: Perf ormed at: =G - [facility] [address] [id number] [place]: Sonia Simpson MD, Phone: [phone] Performed By: #### L 700.8000 #### [facility] [address] [place], [place], [id number] Calculated very low density lipoprotein (VLDL) cholesterol measurementOrdered By: Imelda Marvin on 12-01-2024 Calculated very low density lipoprotein (VLDL) cholesterol measurement 14 mg/dL 5-40 [facility] Cervical or vaginal specimen microscopic examination by liquid based cytology (reportOrdered By: Imelda Marvin on 12-01-2024 Cytology report Cyto stain.thin prep Doc (Cvx/Vag) Not Reportable [facility] Chlamydia trachomatis rRNA d etection by probe and target amplification methodOrdered By: Imelda Marvin on 12-01-2024 C. trachomatis rRNA JIM+probe Ql (Unsp spec) Negative Negative [facility] Glucoseon 12-01-2024 Glucose [Mass/Vol] 88 mg/dL Normal 70-99 [facility] Comment on above: Performed By: #### L 500.4100, L501.9520, L506.1001, L501.0100, L503.0106, L506.0400 #### [facility] [address] [place], [place], [id number] (131) LDL calc ser/plasOrdered By: Imelda Marvin on 12-01-2024 Cholesterol in LDL [Mass/Vol] 95 mg/dL [facility] Comment on above: Ykyhfluzvc=078-485 m g/dL & Higher Ngdu=904 mg/dL or greater Lipid Profileon 12-01-2024 CHOL:HDL 2.85 Normal [facility] Comment on above: Performed By: #### L 500.4100, L501.9520, L506.1001, L501.0100, L503.0106, L506.0400 #### [facility] [address] [place], [place], [id number] ([address]) Cholesterol [Mass/Vol] 168 mg/dL Normal <=200 [facility] Comment on above: Result Comment: Chol esterol level, Desirable <200 mg/dL Borderline high cholesterol 200-239 mg/dL High cholesterol >=240 mg/dL Recommendations of the NCEP Adult Treatment Panel for the following risk-cutoff thresholds for the [place] population. Performed By: #### L 500.4100, L501.9520, L506.1001, L501.0100, L503.0106, L506.0400 #### [facility] [address] [place], [place], [phone] ([address]) Cholesterol in HDL [Mass/Vol] 59 mg/dL Normal [facility] Comment on above: Result Comment: Treva onal Cholesterol Education Program (NCEP) guidelines: <40 mg/dL: Low HDL-cholesterol (major risk factor for CHD) >= 60 mg/dL: High HDL-cholesterol (negative risk factor for CHD) HDL-cholesterol is affected by a number of factors, e.g. smoking, exercise, hormones, sex and age. Performed By: #### L 500.4100, L501.9520, L506.1001, L501.0100, L503.0106, L506.0400 #### [facility] [address] [place], [address] Cholesterol in LDL [Mass/Vol] 95 mg/dL Normal [facility] Comment on above: Result Comment: Bord upahyv=421-564 mg/dL Higher Tfqo=261 mg/dL or greater Performed By: #### L 500.4100, L501.9520, L506.1001, L501.0100, L503.0106, L506.0400 #### [facility] [address] [place], [address] Cholesterol in VLDL [Mass/Vol] 14 mg/dL Normal 5-40 [facility] Comment on above: Performed By: #### L 500.4100, L501.9520, L506.1001, L501.0100, L503.0106, L506.0400 #### [facility] [address] [place], [address] Triglyceride [Mass/Vol] 69 mg/dL Normal [facility] Comment on above: Result Comment: The drugs N-Acetylcysteine and Metamizole may falsely depress this assay. Normal range: <150 mg/dL Borderline High: 150-199 mg/dL High: 200-499 mg/dL Very High: >500 mg/dL Performed By: #### L 500.4100, L501.9520, L506.1001, L501.0100, L503.0106, L506.0400 #### [facility] [address] [place], [address] Neisseria gonorrhoeae nuclei c acid detection by amplified probe techniqueOrdered By: Imelda Marvin on 12-01-2024 N. gonorrhoeae DNA JIM+probe Ql (Unsp spec) Negative Negative [facility] Comment on above: Performed at: [address] [id number] Director: Sonia Simpson MD, Phone: [phone] No Panel InformationOrdered By: Imelda Marvin on 12-01-2024 Pap Smear Test Ordered See comment [facility] Comment on above: IGP, Aptima HPV, rfx 16/18,45; Physician Read PapINTERPRETATION:EPITHELIAL CELL ABNORMALITY.LOW GRADE SQUAMOUS INTRAEPITHELIAL LESION (LSIL).Recommendation(s) Suggest follow up as clinically appropriate.Pathologist Provided ICD Code(s) R87.612Specimen Adequacy:Satisfactory for evaluation. Endocervical and/or squamous metaplastic cells (endocervical component) are present.COMMENTS:The Pap smear is a screening test designed to aid in the detection of premalignant and malignant conditions of the uterine cervix. It is not a diagnostic procedure and should not be used as the sole means of detecting cervical cancer. Both false-positive and false-negative reports do occur. This liquid based ThinPrep(R) pap test was screened with the use of an image guided system. Performed by Opal Haywood, Director Of Infection Control (ASCP) Electronically signed by Charlene Kunz MD, Pathologist This nucleic acid amplification test detects fourteen high-risk HPV types (16,18,31,33,35,39,45,51,52,56,58,59,66,68) without differentiation.HPV RESULTS: HPV Aptima: Positive HPV Genotype Reflex Criteria not met, HPV Genotype not performed. ___ TESTING PERFORMED AT [facility]. ORIGINAL REPORT ON FILE IN LAB CONTAINS ADDITIONAL TEST SITE INFORMATION. Professional Bondsman Office Visit Reporton 12-01-2024 Professional Bondsman Office Visit Report [facility] [address] [place] [address], [address] [place] [address] OFFICE VISIT Date of Service: 12/01/24 MR#: [id number] Acct: [id number] Name: STEFANIA NICOLE Rep #: [id number] : 1990 Provider: Dr. 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 Company Required: No Is patient in pain?: No Allergies amoxicillin (From Augmentin) Allergy (Mild, Verified 12/01/24 08:28) Diarrhea clavulanic acid (From Augmentin) Allergy (Mild, Verified 12/01/24 08:28) Diarrhea Medications ???Medication ???Instructions ???Recorded ???Confirmed ???Type sumatriptan succinate 25 mg tablet See Rx Instructions PO .COMPLEX 11/24/24 12/01/24 Rx (Imitrex) #14 tabs levonorgestrel 0.15 mg-ethinyl 1 tab PO DAILY #84 tabs 12/01/24 0 12/01/24 Rx estradiol 0.03 mg tablet (Altavera (28)) Post menopausal: No Patient : No : No PFSH Medical History GERD (gastroesophageal reflux disease) Frequent headaches History of IBS UTI (urinary tract infection) Back problem Allergies Surgical History No significant past surgical history Family History Grandfather Cancer Lung- maternal AA (alcohol abuse) Grandmother Breast cancer Paternal Diabetes AA (alcohol abuse) Father Diabetes Grandmother Diabetes Grandfather Heart disease Mother AA (alcohol abuse) Hypertension Father Hypertension Diabetes Social History (Updated 12/01/24 @ 08:28 by Maida Gonzalez) household members: spouse current occupational status: employed 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 Date Name GA/Weeks Outcome Route Bth Weight Gen Labor Lgth Anesthesia Del Locatn Provider FOB Unknown Nita Unknown Pavel HPI Encounter for routine gynecological examination Details: STEFANIA NICOLE is a 34 year old who presents for annual exam. Last PAP: patient thinks 4-5 years ago when she had her son History of abnormal PAP: no Last mammogram: never History of abnormal mammogram: n/a Colon cancer screening: was scheduled to have one for IBS vs IBD Other preventative health care screenings: Dr. Howe. due for baseline labs Female Reproductive History Questions: metorrhagia: No, sexually active: Yes, dyspareunia: No and PCB: No Menopausal Symptoms: No hot flashes, No night sweats, No weight change, No mood changes, No difficulty concentrating, No sleep problems and No change in libido ROS Const Constitutional: Reports as per HPI; Denies fatigue, increased appetite, poor appetite, night sweats, weight gain or weight loss Cardio Card: Denies chest pain Resp Resp: Denies cough or dyspnea GI GI: Reports as per HPI; Denies abdominal pain, bloating, constipation, nausea or vomiting : Reports as per HPI and other; Denies difficulty voiding, dysuria, hematuria, hot flashes, nipple discharge, pelvic pain, prolapse symptoms, urinary frequency, urinary incontinence, urinary urgency, vaginal discharge, vaginal dryness, vaginal odor or vaginal pruritus Skin Skin/Breast: Denies changing lesions, breast mass, breast pain, breast skin changes or nipple discharge Psych Psych: Denies anxiety, change in libido, depression or difficulty concentrating Exam Const General: cooperative, healthy appearing, comfortable, no acute distress, well developed and well groomed [facility] Head: normal to inspection and normocephalic Ears: hearing grossly normal bilaterally and external ears normal Nose: external nose normal Face and sinus: normal facial exam Neck Neck: normal visual inspection, full ROM and no lymphadenopathy Thyroid: diffusely enlarged Chest Chest palpation inspection: normal inspection of the chest Breast inspection: normal inspection of the breasts and normal inspection of the axillae Breast palpation: normal palpation of the breasts, normal palpation of the axillae and no axillary lymphadenopathy Resp Effort Inspection: normal respiratory effort GI Inspection: normal to inspection and non-distende (more content not included)... Normal [facility] Screening total cholesterol/ high density lipoprotein (HDL) cholesterol ratioOrdered By: Imelda Marvin on 12-01-2024 Cholesterol.total/Cho lesterol in HDL [Mass ratio] 2.85 {ratio} [facility] Serum glucose measurement (m ass/volume)Ordered By: Imelda Marvin on 12-01-2024 Glucose [Mass/Vol] 88 mg/dL 70-99 [facility] Serum or plasma cholesterol in HDL measurement (mass/volume)Ordered By: Imelda Marvin on 12-01-2024 Cholesterol in HDL [Mass/Vol] 59 mg/dL >40 [facility] Comment on above: National Cholesterol Education Program (NCEP) guidelines:<40 mg/dL: Low HDL-cholesterol (major risk factor for CHD)>= 60 mg/dL: High HDL-cholesterol (negative risk factor for CHD)HDL-cholesterol is affected by a number of factors, e.g. smoking, exercise, hormones, sex and age. Serum or plasma cholesterol measurement (mass/volume)Ordered By: Imelda Marvin on 12-01-2024 Cholesterol [Mass/Vol] 168 mg/dL <201 [facility] Comment on above: Cholesterol level, D esirable <200 mg/dLBorderline high cholesterol 200-239 mg/dLHigh cholesterol >=240 mg/dLRecommendations of the NCEP Adult Treatment Panel for the following risk-cutoff thresholds for the [place] population. T4 Free Directon 12-01-2024 T4 FREE DIRECT 1.30 ng/dL Normal 0.76-1.46 [facility] Comment on above: Performed By: #### L 500.4100, L501.9520, L506.1001, L501.0100, L503.0106, L506.0400 #### [facility] [address] [place], [place], [id number] T4 freeOrdered By: Imelda Marvin on 12-01-2024 Free T4 [Mass/Vol] 1.30 ng/dL 0.76-1.46 [facility] TSH DL <= 0.005 mIU/L QnOrde red By: Imelda Marvin on 12-01-2024 TSH Qn 1.480 uIU/mL 0.300-4.200 [facility] Thyroid Stim Hormone (TSH)on 12-01-2024 TSH 1.480 uIU/mL Normal 0.300-4.200 [facility] Comment on above: Performed By: #### L 500.4100, L501.9520, L506.1001, L501.0100, L503.0106, L506.0400 #### [facility] [address] [place], [place], [id number] Triglycerides measurementOrd ered By: Imelda Marvin on 12-01-2024 Triglyceride [Mass/Vol] 69 mg/dL <199 [facility] Comment on above: The drugs N-Acetylcy steine and Metamizole may falsely depress this assay. Normal range: <150 mg/dLBorderline High: 150-199 mg/dLHigh: 200-499 mg/dLVery High: >500 mg/dL Vitamin B12on 12-01-2024 Cobalamin (Vitamin B12) [Mass/Vol] 419 pg/mL Normal 180-914 [facility] Comment on above: Performed By: #### L 500.4100, L501.9520, L506.1001, L501.0100, L503.0106, L506.0400 #### [facility] [address] [place], [place], [id number] Vitamin B12 ser/plasOrdered By: Imelda Marvin on 12-01-2024 Cobalamin (Vitamin B12) [Mass/Vol] 419 pg/mL 180-914 [facility] Vitamin D,25 Hydroxyon 12-01 Vitamin D 25-OH 19.4 ng/mL Low 30-100 [facility] Comment on above: Result Comment: Tahmina min D Status Deficiency: <20 ng/mL (50nmol/L) Insufficiency: 20-30 ng/mL (50-75 nmol/L) Sufficiency: 30-100 ng/mL (75-250 nmol/L) Toxicity: >100 ng/mL (>250 nmol/L) Performed By: #### L 500.4100, L501.9520, L506.1001, L501.0100, L503.0106, L506.0400 #### [facility] [address] [place], [address] Serum human chorionic gonado tropin detection for pregnancyOrdered By: Rae Nogueira on 11-22-2024 HCG ( test) Ql 5 mIU/mL <9 [facility] Comment on above: Gestational Age0.2-1 Week: 5-50 mIU/mL1-2 Weeks: 50-500 mIU/mL2-3 Weeks: 100-5000 mIU/mL3-4 Weeks: 500-10,000 mIU/mL4-5 Weeks:1000-50,000 mIU/mL5-6 Weeks: 10,000-100,000 mIU/mL6-8 Weeks: 15,000-200,000 mIU/mL2-3 Months:10,000-100,000 mIU/mL hCG Titer Quant., Serumon HCG QUANT. 5 mIU/mL Normal <9 non-preg [facility] Comment on above: Result Comment: Gest ational Age 0.2-1 Week: 5-50 mIU/mL 1-2 Weeks: 50-500 mIU/mL 2-3 Weeks: 100-5000 mIU/mL 3-4 Weeks: 500-10,000 mIU/mL 4-5 Weeks:1000-50,000 mIU/mL 5-6 Weeks: 10,000-100,000 mIU/mL 6-8 Weeks: 15,000-200,000 mIU/mL 2-3 Months:10,000-100,000 mIU/mL Performed By: #### L 500.4100, L501.9520, L506.1001, L501.0100, L503.0106, L506.0400 #### [facility] [address] [place], [place], [address] Serum human chorionic gonado tropin detection for pregnancyOrdered By: Rae Nogueira on 11-18-2024 HCG ( test) Ql 19 mIU/mL High <9 [facility] Comment on above: Gestational Age0.2-1 Week: 5-50 mIU/mL1-2 Weeks: 50-500 mIU/mL2-3 Weeks: 100-5000 mIU/mL3-4 Weeks: 500-10,000 mIU/mL4-5 Weeks:1000-50,000 mIU/mL5-6 Weeks: 10,000-100,000 mIU/mL6-8 Weeks: 15,000-200,000 mIU/mL2-3 Months:10,000-100,000 mIU/mL hCG Titer Quant., Serumon HCG QUANT. 19 mIU/mL High <9 non-preg [facility] Comment on above: Result Comment: Gest ational Age 0.2-1 Week: 5-50 mIU/mL 1-2 Weeks: 50-500 mIU/mL 2-3 Weeks: 100-5000 mIU/mL 3-4 Weeks: 500-10,000 mIU/mL 4-5 Weeks:1000-50,000 mIU/mL 5-6 Weeks: 10,000-100,000 mIU/mL 6-8 Weeks: 15,000-200,000 mIU/mL 2-3 Months:10,000-100,000 mIU/mL Performed By: #### L 700.8000 #### [facility] [address] [place], [place], [id number] Serum human chorionic gonado tropin detection for pregnancyOrdered By: Rae Nogueira on 11-11-2024 HCG ( test) Ql 395 mIU/mL High <9 [facility] Comment on above: Gestational Age0.2-1 Week: 5-50 mIU/mL1-2 Weeks: 50-500 mIU/mL2-3 Weeks: 100-5000 mIU/mL3-4 Weeks: 500-10,000 mIU/mL4-5 Weeks:1000-50,000 mIU/mL5-6 Weeks: 10,000-100,000 mIU/mL6-8 Weeks: 15,000-200,000 mIU/mL2-3 Months:10,000-100,000 mIU/mL hCG Titer Quant., Serumon HCG QUANT. 395 mIU/mL High <9 non-preg [facility] Comment on above: Result Comment: Gest ational Age 0.2-1 Week: 5-50 mIU/mL 1-2 Weeks: 50-500 mIU/mL 2-3 Weeks: 100-5000 mIU/mL 3-4 Weeks: 500-10,000 mIU/mL 4-5 Weeks:1000-50,000 mIU/mL 5-6 Weeks: 10,000-100,000 mIU/mL 6-8 Weeks: 15,000-200,000 mIU/mL 2-3 Months:10,000-100,000 mIU/mL Performed By: #### L 700.8000 #### [facility] [address] [place] [address], [id number] Serum human chorionic gonado tropin detection for pregnancyOrdered By: Rae Nogueira on 11-09-2024 HCG ( test) Ql 1887 mIU/mL High <9 [facility] Comment on above: Gestational Age0.2-1 Week: 5-50 mIU/mL1-2 Weeks: 50-500 mIU/mL2-3 Weeks: 100-5000 mIU/mL3-4 Weeks: 500-10,000 mIU/mL4-5 Weeks:1000-50,000 mIU/mL5-6 Weeks: 10,000-100,000 mIU/mL6-8 Weeks: 15,000-200,000 mIU/mL2-3 Months:10,000-100,000 mIU/mL hCG Titer Quant., Serumon HCG QUANT. 1887 mIU/mL High <9 non-preg [facility] Comment on above: Result Comment: Gest ational Age 0.2-1 Week: 5-50 mIU/mL 1-2 Weeks: 50-500 mIU/mL 2-3 Weeks: 100-5000 mIU/mL 3-4 Weeks: 500-10,000 mIU/mL 4-5 Weeks:1000-50,000 mIU/mL 5-6 Weeks: 10,000-100,000 mIU/mL 6-8 Weeks: 15,000-200,000 mIU/mL 2-3 Months:10,000-100,000 mIU/mL Performed By: #### L 700.8000 #### [facility] [address] [place], [address] Serum human chorionic gonado tropin detection for pregnancyOrdered By: Kirstie Carter on 11-04-2024 HCG ( test) Ql 390 mIU/mL High <9 [facility] Comment on above: Gestational Age0.2-1 Week: 5-50 mIU/mL1-2 Weeks: 50-500 mIU/mL2-3 Weeks: 100-5000 mIU/mL3-4 Weeks: 500-10,000 mIU/mL4-5 Weeks:1000-50,000 mIU/mL5-6 Weeks: 10,000-100,000 mIU/mL6-8 Weeks: 15,000-200,000 mIU/mL2-3 Months:10,000-100,000 mIU/mL hCG Titer Quant., Serumon HCG QUANT. 390 mIU/mL High <9 non-preg [facility] Comment on above: Result Comment: Gest ational Age 0.2-1 Week: 5-50 mIU/mL 1-2 Weeks: 50-500 mIU/mL 2-3 Weeks: 100-5000 mIU/mL 3-4 Weeks: 500-10,000 mIU/mL 4-5 Weeks:1000-50,000 mIU/mL 5-6 Weeks: 10,000-100,000 mIU/mL 6-8 Weeks: 15,000-200,000 mIU/mL 2-3 Months:10,000-100,000 mIU/mL Performed By: #### L 500.4100, L501.9520, L506.1001, L501.0100, L503.0106, L506.0400 #### [facility] [address] [place], [address] Plastic Surgery Visit Report on 10-26-2024 Plastic Surgery Visit Report [facility] [address] [place] [address] OFFICE VISIT Date of Service: 10/26/24 MR#: [id number] Acct: [id number] Name: STEFANAI NICOLE Rep #: [id number] : 1990 Provider: Dr. Olinda lezama MD Age/Sex: 34/F Location: [facility] Status: Signed Intake Vital Signs 05/24/24 08:58 10/15/24 08:40 10/26/24 14:17 Height 5 ft 2 in 5 ft 2 in 5 ft 2 in Weight: 149 lb 2 oz BMI 27.2 BP 127/81 H Blood Pressure Location Lt brachial Position Sitting Respiration 18 Pulse 89 Temp 99.0 F Temp Source Temporal Pulse Oximetry (%) 97 Oxygen Delivery Method room air Intake Visit Reasons: post op lesion Chief Complaint: post op Is patient in pain?: No Allergies amoxicillin (From Augmentin) Allergy (Mild, Verified 10/26/24 14:19) Diarrhea clavulanic acid (From Augmentin) Allergy (Mild, Verified 10/26/24 14:19) Diarrhea Medications ???Medication ???Instructions ???Recorded ???Confirmed ???Type levonorgestrel 0.15 mg-ethinyl 1 tab PO DAILY #84 tabs 08/02/24 0 10/15/24 Rx estradiol 0.03 mg tablet (Altavera (28)) sumatriptan succinate 25 mg tablet See Rx Instructions PO .COMPLEX #7 09/14/24 10/15/24 Rx (Imitrex) tabs Nurse's Note: pt here post op no issues Subjective Details: Stefania comes in for recheck of the neoplasms removed from her scalp. She denies any problems. Objective Details: The excision sites are intact. There is no evidence of infection. There is a moderate amount of crust and scab on both areas. This was lightly debrided. I have asked her to shower over these areas and to scrub with the pads of her fingers to help loosen the crust and scab. The pathology was reviewed with her: Skin, upper scalp, excision: - Compound melanocytic nevus, traumatized. Skin, lower scalp, excision: - Compound melanocytic nevus No further intervention is necessary. She is encouraged to call with any problems otherwise I will see her back as needed. 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 Olinda Berrios MD) GERD (gastroesophageal reflux disease) Frequent headaches History of IBS UTI (urinary tract infection) Back problem Allergies Surgical History No significant past surgical history Family History (Updated 10/13/24 @ 13:55 by Mona Vee) Grandfather Cancer Lung- maternal AA (alcohol abuse) Grandmother Breast cancer Paternal Diabetes AA (alcohol abuse) Father Diabetes Grandmother Diabetes Grandfather Heart disease Mother AA (alcohol abuse) Hypertension Father Hypertension Diabetes Social History (Updated 10/13/24 @ 14:02 by Mona Vee) household members: spouse current occupational status: employed 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 Assessment and Plan (No Qualifiers) Assessment and Plan (1) Benign neoplasm of skin of scalp: Status: Acute Plan Details Additional Comments: I will see her back as needed. 10/26/24 1600 Date Olinda Berrios MD Cosigner Signature: Date (if applicable) CC: Normal [facility] Discharge Instructionon 040 Discharge Instruction [facility] Medical Records Department [address] [place] [address] Instructions for Home/Discharge Instructions 10/15/24 0950 MR#: [id number] Acct: [id number] Name: STEFANIA NICOLE Rep #: [id number] : 1990 34 From: Olinda Berrios MD PCP: Dr. Vilma Min MD Status:[facility] [place]charge Instructions Dressing / Incision Additional Dressing/Incision Instructions:: May shower over the site but do not scrub. Keep your back elevated (recliner position) for the next 4 nights to prevent swelling and bleeding. Take the oral antibiotic (Bactrim) 2 times a day until finished. Apply thin layer of antibiotic ointment (like Neosporin, bacitracin, or triple antibiotic ointment) 1 time a day. Follow Up Care Please Follow Up With: Olinda Berrios MD When: 1 to 2 weeks Test Results: Test results from this visit will be discussed in further detail at your follow-up appointment, if applicable. Discharge Plan Admission Attending Provider: Olinda Berrios Primary Care Provider: Vilma Min Print Language: Occitan Discharge Orders/Prescriptions Prescriptions: New sulfamethoxazole-trimetho prim [Bactrim] 400-80 mg tablet 1 tab PO BID 5 Days Qty: 10 0RF No Action levonorgestrel-ethinyl estrad [Altavera (28)] 0.15-0.03 mg tablet 1 tab PO DAILY Qty: 84 0RF sumatriptan succinate [Imitrex] 25 mg tablet See Rx Instructions PO .COMPLEX Qty: 7 0RF Rx Instructions: take 1 tab at onset of headache; if no relief may repeat 1 tab after at least 2 hrs; max = 4 tabs/24 hr PO Referrals / Follow Up: Vilma Min MD [Primary Care Provider] - Disposition Disposition (needs filled in before D/C Order can be placed): Home, Self Care 10/15/24 0952 Olinda Berrios MD CC: Dr. Vilma Min MD Signed [facility] Operative Reporton 5 Operative Report [facility] Medical Records Department [address] [place] [address] Operative Report 10/15/24 0952 MR#: [id number] Acct: [id number] Name: STEFANIA NICOLE Rep #: [id number] : 1990 34 From: Olinda Berrios MD PCP: Dr. Vilma Min MD [place] [facility] [place]: [place] [address]-1 Problems Associated Problem List Diagnoses (1) Neoplasm of uncertain behavior of skin: Operative Report (Standard) Operative Information Date of Procedure: 10/15/24 Pre-Operative Diagnosis: Neoplasm of uncertain behavior x 2 posterior scalp Post-Operative Diagnosis: Same Surgery/Procedure Performed: Excision neoplasm x 2 posterior scalp (2.0 cm, 2.0 cm) perinatal breastfeeding assistant: No Type of Anesthesia: Local RN Documented Start/Stop Times: Operation Date: 10/15/24 09:20 Case Time Into Pre-Op 10/15/24 08:34 Out of Pre-Op 10/15/24 09:05 Into Room 10/15/24 09:08 Procedure Start 10/15/24 09:23 Procedure End 10/15/24 09:45 Anesthesia End 10/15/24 09:48 Out of Room 10/15/24 09:48 Into Phase II Recovery 10/15/24 09:49 Procedure Start Time: 09:23 Procedure Stop Time: 09:45 Select all DRAINS/GRAFTS/IMPLANTS that apply: None Estimated Blood Loss: Minimal Specimen collected: Yes Description of specimen(s) removed: Neoplasm x2 skin of the posterior scalp Description of surgery: The patient presents with 2 exophytic lesions to the posterior scalp which have been there for many years but have grown or changed. She presents for excision of the neoplasms with submission for pathologic evaluation. She is marked in the preop holding area prior to surgery and informed consent is obtained. The patient was brought to the operating room and placed on the operating room table in the prone position. The posterior scalp was prepped and draped in the usual sterile fashion. 1% Xylocaine with epinephrine buffered with sodium bicarb was used for local anesthetic. Following this, the sites are excised and passed off the operative field to be sent to pathology. Hemostasis is controlled with cautery. The sites were then initially closed with interrupted silk suture. Following this, running and interrupted chromic sutures were used to further refine the closure. The initial approximation silk sutures then removed. Antibiotic ointment are placed on both sites. She tolerated the procedure well and was taken to the recovery area in awake and stable condition. Needle and sponge counts are correct. Surgical Findings: As above Complications Complications: No Admit VTE Documentation VTE Mechan Device Prophylaxis: None Reason prophylaxis not ordered: Treatment Not Indicated 10/15/24 4015 Cosigner Signature (if applicable): CC: Dr. Vilma Min MD; Dr. Olinda Berrios MD Signed Normal [facility] Surgery Specimen Level Kris 10-15-2024 Surgery Specimen Level IV Patient Age/Sex Location Account Attending Physician STEFANIA NICOLE 34/F [facility] [id number] Dr. Olinda Berrios MD Specimen: [id number] Received: 10/15/24 Status: [facility] Kendrick Num: [id number] Spec Type: Lesion Subm Dr: Dr. Olinda Berrios MD HEADER OPERATION: Excision neoplasm x 2 scalp (1.5cm, 1.5cm) PRE-OP DIAGNOSIS: Neoplasm of uncertain behavior of skin TISSUE SUBMITTED: A- Neoplasm of uncertain behavior of skin of scalp - upper, B- Neoplasm of uncertain behavior of skin of scalp - lower MICROSCOPIC DIAGNOSIS A. Skin, upper scalp, excision: - Compound melanocytic nevus, traumatized. B. Skin, lower scalp, excision: - Compound melanocytic nevus. MICROSCOPIC DESCRIPTION Slides are reviewed. GROSS DESCRIPTION A. Received in formalin in a container labeled with the patient's name, date of , and neoplasm of uncertain behavior of skin of scalp-upper" is an unoriented and circular skin excision measuring 1.1 x 1.1 cm with a depth of 0.4 cm. The viramontes epidermis is notable for an irregular, viramontes-pink, papillary nodule measuring 1.0 x 1.0 x 0.4 cm. The nodule comes to within approximately 0.1 cm of the peripheral margin. The deep margin is inked green and serial sections reveal viramontes-pink, rubbery surfaces that appear confined to the epidermis. Submitted entirely as follows:A1. Tips, perpendicularA2. Remainder of specimen B. Received in formalin in a container labeled with the patient's name, date of , and neoplasm of uncertain behavior of skin of scalp-lower" is an unoriented and ovoid skin excision measuring 1.3 x 1.0 cm with an excisional depth of 0.4 cm. The viramontes epidermis is notable for an irregular, viramontes-pink, papillary nodule measuring 1.1 x 0.9 x 0.4 cm. The nodule comes to within 0.1 cm of the peripheral margin. The deep margin is inked green and serial sections reveal viramontes-pink, rubbery surfaces that are confined to the epidermis. Submitted entirely as follows:B1. Tips, perpendicular (nodule is friable and only partially adherent to epidermis)B2. Remainder of specimen [facility] 10-15-2024 CPT:86182y8 Patient Age/Sex Location Account Attending Physician STEFANIA NICOLE 34/F [facility] [id number] Dr. Olinda Berrios MD Signed (signature on file) Dr. Deb Paz MD 10/20/24 1712 [facility] Comment on above: Performed By: #### L 500.4100, L501.9520, L506.1001, L501.0100, L503.0106, L506.0400 #### [facility] [address] [place], [address] Plastic Surgery Visit Report on 10-13-2024 Plastic Surgery Visit Report [facility]astic Reconstructive Surgery [address] [place] [address] OFFICE VISIT Date of Service: 10/13/24 MR#: [id number] Acct: [id number] Name: STEFANIA NICOLE Rep #: [id number] : 1990 Provider: Dr. Olinda lezama MD Age/Sex: 34/F Location: [facility] Status: Signed Intake Vital Signs 05/24/24 08:58 Height 5 ft 2 in Weight: 153 lb BMI 28.0 BP 103/68 Blood Pressure Location Lt brachial Position Sitting Respiration 18 Pulse 79 Temp 98.7 F Temp Source Temporal Pulse Oximetry (%) 96 Oxygen Delivery Method room air Intake Visit Reasons: SPOT ON HEAD Chief Complaint: spot on head- 2 moles on back of head Is patient in pain?: No Allergies amoxicillin (From Augmentin) Allergy (Mild, Verified 10/13/24 13:56) Diarrhea clavulanic acid (From Augmentin) Allergy (Mild, Verified 10/13/24 13:56) Diarrhea Medications ???Medication ???Instructions ???Recorded ???Confirmed ???Type metronidazole 1 % topical gel 1 applic topical QHS #60 grams 06/0605/24/24 Rx (Metrogel) levonorgestrel 0.15 mg-ethinyl 1 tab PO DAILY #84 tabs 08/02/24 0 10/13/24 Rx estradiol 0.03 mg tablet (Altavera (28)) sumatriptan succinate 25 mg tablet See Rx Instructions PO .COMPLEX #7 09/14/24 10/13/24 Rx (Imitrex) tabs Nurse's Note: pt here for eval of two moles on back of head, would like removed ON LICENSE OF [facility] Medical History (Updated 10/13/24 @ 14:[address] Olinda Berrios MD) GERD (gastroesophageal reflux disease) Frequent headaches History of IBS UTI (urinary tract infection) Back problem Allergies Surgical History No significant past surgical history Family History (Updated 10/13/24 @ 13:55 by Mona Vee) Grandfather Cancer Lung- maternal AA (alcohol abuse) Grandmother Breast cancer Paternal Diabetes AA (alcohol abuse) Father Diabetes Grandmother Diabetes Grandfather Heart disease Mother AA (alcohol abuse) Hypertension Father Hypertension Diabetes Social History (Updated 10/13/24 @ 14:02 by Mona Vee) household members: spouse current occupational status: employed 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 HPI SPOT ON HEAD Details: Stefania comes in for evaluation of 2 neoplasms of her scalp which have been there since she was a teenager however she states they have grown larger. She denies that these have bled or been infected in the past. She denies any previous history of skin cancer. She denies family history of skin cancer. ROS General General: Yes good health and fatigue; No fever(s) or weight loss HENMT HENMT: No rhinitis, sore throat/mouth sore, nasal congestion, contacts or glaucoma Endo Endocrine: No thyroid disease, polydipsia, heat intolerance, cold intolerance, hepatitis or excessive urine Skin Skin: Yes changing moles; No Bleeding, bruising or suspicious lesion Musc Musculoskeletal: No joint pain, joint stiffness, muscle weakness, back pain, osteoarthritis or Muscle aches/ myalgia Neuro Neurological: Yes headache(s), No lightheadedness and No numbness Cardio Cardiovascular: Yes fatigue; No chest pain, pacemaker or shortness of breat with exertion Psych Psychiatric: No depression, claustrophobia or anxiety Resp Respiratory: No spitting up, shortness of breath, sleep apnea, asthma, emphysema, TB, Cough or Smoker Gastro Gastrointestinal: No diarrhea, constipation, blood in stool, nausea, vomiting or abdominal bloating Talha Hematologic: No anemia, No bleeding and No abnormal bleeding Genitourinary: No urinary frequency, blood in urine or incontinence Exam Details The patient is noted to have an exophytic fleshy pigmented lesions x 2 of the posterior scalp. These are mushroomed out from a smaller base. There is no evidence of infection or drainage. I reviewed excision of these lesions under local anesthetic. The specimen will be sent to pathology for evaluation. Const General: cooperative, healthy appearing, no acute distress and well developed Nutritional Appearance: well nourished Orientation: alert HENKY Head: normal to inspection, normocephalic and atraumatic Ears: hearing grossly normal bilaterally Nose: external nose normal Face and sinus: normal facial exam and face symmetric Mouth: lip normal Eyes General: appearance normal, both eyes and all related structures Eyelids: eyelids normal Pupils: PERRL EOM: EOM intact b (more content not included)... Normal [facility] Absolute lymphocyte countOrd ered By: HEALTH ASSESSMENT on 10-11-2024 Lymphocytes Auto (Unsp spec) [#/Vol] 2.84 10*3/uL 0.83-4.51 [facility] Absolute neutrophil countOrd ered By: HEALTH ASSESSMENT on 10-11-2024 Neutrophils (Bld) [#/Vol] 5.2 10*3/uL 2.0-7.7 [facility] Absolute nucleated red blood cell countOrdered By: HEALTH ASSESSMENT on 10-11-2024 Nucleated RBC (Bld) [#/Vol] 0.00 10*3/uL 0-5 [facility] Anion gap in Serum or Plasma Ordered By: HEALTH ASSESSMENT on 10-11-2024 Anion gap [Moles/Vol] 13 mmol/L 5-15 [facility] BUN/creatinine ratioOrdered By: HEALTH ASSESSMENT on 10-11-2024 Urea nitrogen/Creatinine [Mass ratio] 11.6 mg/mg 10-20 [facility] Bilirubin Test strip Ql (U)O rdered By: HEALTH ASSESSMENT on 10-11-2024 Bilirubin Ql (U) 1 mg/dL High Negative [facility] Comment on above: COLOR OF URINE MAY A FFECT DIPSTICK RESULTS. Bilirubin directOrdered By: HEALTH ASSESSMENT on 10-11-2024 Bilirubin.direct [Mass/Vol] 0.19 mg/dL 0.00-0.30 [facility] Bilirubin, totalOrdered By: HEALTH ASSESSMENT on 10-11-2024 Bilirubin [Mass/Vol] 0.49 mg/dL 0.00-1.30 [facility] CBC, Employeeon 10-11-2024 Absolute Lymph 2.84 X10 3/uL Normal 0.83-4.51 [facility] Comment on above: Performed By: #### L 500.4100, L501.9520, L506.1001, L501.0100, L503.0106, L506.0400 #### [facility] [address] [place], [address] Absolute Neut 5.2 X10 3/uL Normal 2.0-7.7 [facility] Comment on above: Performed By: #### L 500.4100, L501.9520, L506.1001, L501.0100, L503.0106, L506.0400 #### [facility] [address] [place], [address] Basophils/100 WBC (Bld) 0.7 % Normal 0-1 [facility] Comment on above: Performed By: #### L 500.4100, L501.9520, L506.1001, L501.0100, L503.0106, L506.0400 #### [facility] [address] [place], [address] Eosinophils/100 WBC (Bld) 1.0 % Normal 0-5 [facility] Comment on above: Performed By: #### L 500.4100, L501.9520, L506.1001, L501.0100, L503.0106, L506.0400 #### [facility] [address] [place], [address] Erythrocyte distribution width (RBC) [Ratio] 12.2 % Normal 11.6-14.6 [facility] Comment on above: Performed By: #### L 500.4100, L501.9520, L506.1001, L501.0100, L503.0106, L506.0400 #### [facility] [address] [place], [address] Hematocrit (Bld) [Volume fraction] 42.7 % Normal 37-47 [facility] Comment on above: Performed By: #### L 500.4100, L501.9520, L506.1001, L501.0100, L503.0106, L506.0400 #### [facility] [address] [place], [address] Hemoglobin (Bld) [Mass/Vol] 14.7 g/dL Normal 12.0-15.0 [facility] Comment on above: Performed By: #### L 500.4100, L501.9520, L506.1001, L501.0100, L503.0106, L506.0400 #### [facility] [address] [place], [address] Lymphocytes/100 WBC (Bld) 32.1 % Normal 19-41 [facility] Comment on above: Performed By: #### L 500.4100, L501.9520, L506.1001, L501.0100, L503.0106, L506.0400 #### [facility] [address] [place], [address] MCH (RBC) [Entitic mass] 29.2 pg Normal 27.0-32.0 [facility] Comment on above: Performed By: #### L 500.4100, L501.9520, L506.1001, L501.0100, L503.0106, L506.0400 #### [facility] [address] [place], [address] MCHC (RBC) [Mass/Vol] 34.4 g/dL Normal 32-36 [facility] Comment on above: Performed By: #### L 500.4100, L501.9520, L506.1001, L501.0100, L503.0106, L506.0400 #### [facility] [address] [place], [address] MCV (RBC) [Entitic vol] 84.7 fL Normal 81-99 [facility] Comment on above: Performed By: #### L 500.4100, L501.9520, L506.1001, L501.0100, L503.0106, L506.0400 #### [facility] [address] [place], [address] Monocytes/100 WBC (Bld) 7.4 % Normal 0-10 [facility] Comment on above: Performed By: #### L 500.4100, L501.9520, L506.1001, L501.0100, L503.0106, L506.0400 #### [facility] [address] [place], [address] Neutrophils/100 WBC (Bld) 58.5 % Normal 47-70 [facility] Comment on above: Performed By: #### L 500.4100, L501.9520, L506.1001, L501.0100, L503.0106, L506.0400 #### [facility] [address] [place], [address] NRBC # 0.00 10 3/uL Normal 0-5 [facility] Comment on above: Performed By: #### L 500.4100, L501.9520, L506.1001, L501.0100, L503.0106, L506.0400 #### [facility] [address] [place], [address] Nucleated RBC (Bld) [#/Vol] 0 10*3/uL Normal 0-5 [facility] Comment on above: Performed By: #### L 500.4100, L501.9520, L506.1001, L501.0100, L503.0106, L506.0400 #### [facility] [address] [place], [address] Platelet mean volume (Bld) [Entitic vol] 9.1 fL Normal 6.2-12.0 [facility] Comment on above: Performed By: #### L 500.4100, L501.9520, L506.1001, L501.0100, L503.0106, L506.0400 #### [facility] [address] [place], [address] Platelets (Bld) [#/Vol] 430 10*3/uL Normal 150-450 [facility] Comment on above: Performed By: #### L 500.4100, L501.9520, L506.1001, L501.0100, L503.0106, L506.0400 #### [facility] [address] [place], [address] RBC (Bld) [#/Vol] 5.04 10*6/uL Normal 4.2-5.4 [facility] Comment on above: Performed By: #### L 500.4100, L501.9520, L506.1001, L501.0100, L503.0106, L506.0400 #### [facility] [address] [place], [address] RDW SD 37.2 fl Normal 35.1-43.9 [facility] Comment on above: Performed By: #### L 500.4100, L501.9520, L506.1001, L501.0100, L503.0106, L506.0400 #### [facility] [address] [place], [address] WBC (Bld) [#/Vol] 8.9 10*3/uL Normal 4.4-11.0 [facility] Comment on above: Performed By: #### L 500.4100, L501.9520, L506.1001, L501.0100, L503.0106, L506.0400 #### [facility] [address] [facility] [place], [place], [id number] Calculated very low density lipoprotein (VLDL) cholesterol measurementOrdered By: HEALTH ASSESSMENT on 10-11-2024 Calculated very low density lipoprotein (VLDL) cholesterol measurement 22 mg/dL 5-40 [facility] VLDL Cholesterol 22 mg/dL 5-40 [facility] Carbon dioxide, total [Moles /volume] in Central venous bloodOrdered By: HEALTH ASSESSMENT on 10-11-2024 CO2 [Moles/Vol] 22.9 mmol/L 21.0-32.0 [facility] Chloride assayOrdered By: HE ALTH ASSESSMENT on 10-11-2024 Chloride [Moles/Vol] 102 mmol/L 98-108 [facility] [employer] Cholesterol in LDL [Mass/Vol] 109 mg/dL Normal 0-130 [facility] Comment on above: Performed By: #### L 500.4100, L501.9520, L506.1001, L501.0100, L503.0106, L506.0400 #### [facility] [address] [facility] [place], [place], [id number] Erythrocyte distribution wid th (RBC) [Ratio]Ordered By: HEALTH ASSESSMENT on 10-11-2024 Erythrocyte distribution width (RBC) [Entitic vol] 37.2 fL 35.1-43.9 [facility] Erythrocyte distribution wid th ratioOrdered By: HEALTH ASSESSMENT on 10-11-2024 Erythrocyte distribution width (RBC) [Ratio] 12.2 % 11.6-14.6 [facility] Erythrocyte distribution wid th standard deviationOrdered By: HEALTH ASSESSMENT on 10-11-2024 Erythrocyte distribution width (RBC) [Ratio] 37.2 fl 35.1-43.9 [facility] GFR/1.73 sq M.predicted faviola g non-blacks MDRD (S/P/Bld) [Vol rate/Area]Ordered By: HEALTH ASSESSMENT on 10-11-2024 Estimated GFR (MDRD) Non-Af Amer 97 >60 [facility] Comment on above: mL/min/1.73m2 CKD-EP I Creatinine Equation (2020) Glomerular filtration rate ( GFR) estimation/1.73 sq m using serum, plasma, or whole bOrdered By: HEALTH ASSESSMENT on 10-11-2024 GFR/1.73 sq M.predicted among non-blacks MDRD (S/P/Bld) [Vol rate/Area] 97 mL/min/{1.73_m2} >60 [facility] Comment on above: mL/min/1.73m2 CKD-EP I Creatinine Equation (2020) Glucose Ql (U)Ordered By: HE ALTH ASSESSMENT on 10-11-2024 Urine Glucose (UA) Normal mg/dl Normal [facility] Hematocrit Auto (Bld) [Volum e fraction]Ordered By: HEALTH ASSESSMENT on 10-11-2024 Hematocrit (Bld) [Volume fraction] 42.7 % 37-47 [facility] Hemoglobin measurementOrdere d By: HEALTH ASSESSMENT on 10-11-2024 Hemoglobin (Bld) [Mass/Vol] 14.7 g/dL 12.0-15.0 [facility] Ketones Test strip Ql (U)Ord ered By: HEALTH ASSESSMENT on 10-11-2024 Ketones Ql (U) Negative Negative [facility] - Chemistry and C hemistry - challengeOrdered By: HEALTH ASSESSMENT on 10-11-2024 AST [Catalytic activity/Vol] 23 U/L <32 [facility] Lactate dehydrogenase (LDH) measurementOrdered By: HEALTH ASSESSMENT on 10-11-2024 LDH [Catalytic activity/Vol] 168 U/L 84-246 [facility] Comment on above: Hemolysis present, R esults could be affected. Low density lipoprotein (LDL ) cholesterol measurementOrdered By: HEALTH ASSESSMENT on 10-11-2024 Cholesterol in LDL [Mass/Vol] 109 mg/dL 0-130 [facility] Lymphocytes Auto (Unsp spec) [#/Vol]Ordered By: HEALTH ASSESSMENT on 10-11-2024 Lymphocytes (Bld) [#/Vol] 2.84 10*3/uL 0.83-4.51 [facility] MCV (mean corpuscular volume ) determinationOrdered By: HEALTH ASSESSMENT on 10-11-2024 MCV (RBC) [Entitic vol] 84.7 fL 81-99 [facility] Mean corpuscular hemoglobin (MCH) determinationOrdered By: HEALTH ASSESSMENT on 10-11-2024 MCH (RBC) [Entitic mass] 29.2 pg 27.0-32.0 [facility] Mean corpuscular hemoglobin concentration (MCHC) determinationOrdered By: HEALTH ASSESSMENT on 10-11-2024 MCHC (RBC) [Mass/Vol] 34.4 g/dL 32-36 [facility] Mean platelet volume determi nationOrdered By: HEALTH ASSESSMENT on 10-11-2024 Platelet mean volume (Bld) [Entitic vol] 9.1 fL 6.2-12.0 [facility] Neutrophil percentageOrdered By: HEALTH ASSESSMENT on 10-11-2024 Neutrophils/100 WBC (Bld) 58.5 % 47-70 [facility] Nitrite Test strip Ql (U)Ord ered By: HEALTH ASSESSMENT on 10-11-2024 Nitrite Ql (U) Negative Negative [facility] Nucleated red blood cell per centageOrdered By: HEALTH ASSESSMENT on 10-11-2024 Nucleated RBC/100 WBC (Bld) [Ratio] 0 % 0-5 [facility] Platelet countOrdered By: HE ALTH ASSESSMENT on 10-11-2024 Platelets (Bld) [#/Vol] 430 10*3/uL 150-450 [facility] Potassium (Unsp spec) [Mass/ Vol]Ordered By: HEALTH ASSESSMENT on 10-11-2024 Potassium [Moles/Vol] 3.8 mmol/L 3.3-5.1 [facility] Potassium measurement (mass/ volume)Ordered By: HEALTH ASSESSMENT on 10-11-2024 Potassium (Unsp spec) [Mass/Vol] 3.8 mmol/L 3.3-5.1 [facility] Protein Test strip Ql (U)Ord ered By: HEALTH ASSESSMENT on 10-11-2024 Protein Ql (U) 30 mg/dl High Negative [facility] RBC Auto (Bld) [#/Vol]Ordere d By: HEALTH ASSESSMENT on 10-11-2024 RBC (Bld) [#/Vol] 5.04 10*6/uL 4.2-5.4 [facility] Screening total cholesterol/ high density lipoprotein (HDL) cholesterol ratioOrdered By: HEALTH ASSESSMENT on 10-11-2024 Cholesterol.total/Cho lesterol in HDL [Mass ratio] 3.20 {ratio} [facility] Serum creatinine measurement (mass/volume)Ordered By: HEALTH ASSESSMENT on 10-11-2024 Creatinine [Mass/Vol] 0.82 mg/dL 0.70-1.20 [facility] Serum globulin measurementOr dered By: HEALTH ASSESSMENT on 10-11-2024 Globulin (S) [Mass/Vol] 2.7 g/dL 2.2-4.2 [facility] Serum glucose measurement (m ass/volume)Ordered By: HEALTH ASSESSMENT on 10-11-2024 Glucose [Mass/Vol] 86 mg/dL 70-99 [facility] Serum or plasma alanine santos otransferase (ALT) measurementOrdered By: HEALTH ASSESSMENT on 10-11-2024 ALT [Catalytic activity/Vol] 32 U/L <35 [facility] Serum or plasma albumin iris urement (mass/volume)Ordered By: HEALTH ASSESSMENT on 10-11-2024 Albumin [Mass/Vol] 4.4 g/dL 3.5-5.0 [facility] Serum or plasma albumin/glob ulin mass ratioOrdered By: HEALTH ASSESSMENT on 10-11-2024 Albumin/Globulin [Mass ratio] 1.7 {ratio} 0.9-2.4 [facility] Serum or plasma alkaline aries sphatase measurementOrdered By: HEALTH ASSESSMENT on 10-11-2024 ALP [Catalytic activity/Vol] 49 U/L 35-104 [facility] Serum or plasma calcium iris urement (mass/volume)Ordered By: HEALTH ASSESSMENT on 10-11-2024 Calcium [Mass/Vol] 9.4 mg/dL 7.6-11.0 [facility] Serum or plasma cholesterol in HDL measurement (mass/volume)Ordered By: HEALTH ASSESSMENT on 10-11-2024 Cholesterol in HDL [Mass/Vol] 60 mg/dL >40 [facility] Comment on above: National Cholesterol Education Program (NCEP) guidelines:<40 mg/dL: Low HDL-cholesterol (major risk factor for CHD)>= 60 mg/dL: High HDL-cholesterol (negative risk factor for CHD)HDL-cholesterol is affected by a number of factors, e.g. smoking, exercise, hormones, sex and age. Serum or plasma cholesterol measurement (mass/volume)Ordered By: HEALTH ASSESSMENT on 10-11-2024 Cholesterol [Mass/Vol] 191 mg/dL <201 [facility] Comment on above: Cholesterol level, D esirable <200 mg/dLBorderline high cholesterol 200-239 mg/dLHigh cholesterol >=240 mg/dLRecommendations of the NCEP Adult Treatment Panel for the following risk-cutoff thresholds for the [place] population. Serum or plasma urea nitroge n measurement (mass/volume)Ordered By: HEALTH ASSESSMENT on 10-11-2024 Urea nitrogen [Mass/Vol] 9 mg/dL 4-19 [facility] Serum or plasma uric acid me asurement (mass/volume)Ordered By: [facility] ASSESSMENT on 10-11-2024 Urate [Mass/Vol] 5.2 mg/dL 2.6-6.0 [facility] Comment on above: The drugs N-Acetylcy steine and Metamizole may falsely depress this assay. Serum phosphorus measurement Ordered By: HEALTH ASSESSMENT on 10-11-2024 Phosphorus Level 3.1 mg/dL 2.7-4.5 [facility] Sodium levelOrdered By: [facility] ASSESSMENT on 10-11-2024 Sodium [Moles/Vol] 138 mmol/L 133-145 [facility] Total proteinOrdered By: [facility] ASSESSMENT on 10-11-2024 Protein [Mass/Vol] 7.1 g/dL 5.9-8.4 [facility] Triglycerides measurementOrd ered By: HEALTH ASSESSMENT on 10-11-2024 Triglyceride [Mass/Vol] 108 mg/dL <199 [facility] Comment on above: The drugs N-Acetylcy steine and Metamizole may falsely depress this assay. Normal range: <150 mg/dLBorderline High: 150-199 mg/dLHigh: 200-499 mg/dLVery High: >500 mg/dL Urinalysis, Employeeon 10-11 BILIRUBIN URINE 1 mg/dL Abnormal Negative [facility] Comment on above: Order Comment: Urine , Random Result Comment: COLO R OF URINE MAY AFFECT DIPSTICK RESULTS. Performed By: #### L 500.4100, L501.9520, L506.1001, L501.0100, L503.0106, L506.0400 #### [facility] [address] [place], [address] Color (U) Yellow Normal Yellow [facility] Comment on above: Order Comment: Urine , Random Performed By: #### L 500.4100, L501.9520, L506.1001, L501.0100, L503.0106, L506.0400 #### [facility] [address] [place], [address] Clarity (U) Sl. Cloudy Normal Clear [facility] Comment on above: Order Comment: Urine , Random Performed By: #### L 500.4100, L501.9520, L506.1001, L501.0100, L503.0106, L506.0400 #### [facility] [address] [place], [address] GLUCOSE, UR Normal Normal Normal [facility] Comment on above: Order Comment: Urine , Random Performed By: #### L 500.4100, L501.9520, L506.1001, L501.0100, L503.0106, L506.0400 #### [facility] [address] [place], [address] KETONE UR Negative Normal Negative [facility] Comment on above: Order Comment: Urine , Random Performed By: #### L 500.4100, L501.9520, L506.1001, L501.0100, L503.0106, L506.0400 #### [facility] [address] [place], [address] LEUK ESTERASE 25 /ul Abnormal Negative [facility] Comment on above: Order Comment: Urine , Random Performed By: #### L 500.4100, L501.9520, L506.1001, L501.0100, L503.0106, L506.0400 #### [facility] [address] [place], [address] Nitrite Ql (U) Negative Normal Negative [facility] Comment on above: Order Comment: Urine , Random Performed By: #### L 500.4100, L501.9520, L506.1001, L501.0100, L503.0106, L506.0400 #### [facility] [address] [place], [address] OCCULT BLOOD-UR 25 /ul Abnormal Negative [facility] Comment on above: Order Comment: Urine , Random Performed By: #### L 500.4100, L501.9520, L506.1001, L501.0100, L503.0106, L506.0400 #### [facility] [address] [place], [address] pH UR 6.0 Normal 5.0 - 8.0 [facility] Comment on above: Order Comment: Urine , Random Performed By: #### L 500.4100, L501.9520, L506.1001, L501.0100, L503.0106, L506.0400 #### [facility] [address] [place], [address] PROT DIPSTX 30 mg/dl Abnormal Negative [facility] Comment on above: Order Comment: Urine , Random Performed By: #### L 500.4100, L501.9520, L506.1001, L501.0100, L503.0106, L506.0400 #### [facility] [address] [place], [address] SP.GR. DIPSTX 1.020 Normal 1.002-1.030 [facility] Comment on above: Order Comment: Urine , Random Performed By: #### L 500.4100, L501.9520, L506.1001, L501.0100, L503.0106, L506.0400 #### [facility] [address] [place], [address] UROBILI 1 mg/dl Abnormal Normal [facility] Comment on above: Order Comment: Urine , Random Performed By: #### L 500.4100, L501.9520, L506.1001, L501.0100, L503.0106, L506.0400 #### [facility] [place], [address] Urine blood detectionOrdered By: HEALTH ASSESSMENT on 10-11-2024 Urine Occult Blood 25 /ul High Negative [facility] Urine clarityOrdered By: A [facility] ASSESSMENT on 10-11-2024 Clarity (U) Sl. Cloudy Clear [facility] Urine color determinationOrd ered By: HEALTH ASSESSMENT on 10-11-2024 Color (U) Yellow Yellow [facility] Urine glucose detectionOrder ed By: HEALTH ASSESSMENT on 10-11-2024 Glucose Ql (U) Normal mg/dl Normal [facility] Urine leukocyte esterase det ection by dipstickOrdered By: HEALTH ASSESSMENT on 10-11-2024 Leukocyte esterase Test strip Ql (U) 25 /ul High Negative [facility] Urine pHOrdered By: HEALTH A SSESSMENT on 10-11-2024 pH (U) 6.0 [pH] 5.0 - 8.0 [facility] Urine specific gravity measu rementOrdered By: HEALTH ASSESSMENT on 10-11-2024 Specific gravity (U) [Rel density] 1.020 1.002-1.030 [facility] Urine urobilinogen measureme ntOrdered By: HEALTH ASSESSMENT on 10-11-2024 Urobilinogen Ql (U) 1 mg/dl High Normal [facility] Urobilinogen Ql (U)Ordered B y: HEALTH ASSESSMENT on 10-11-2024 Urobilinogen (U) [Mass/Vol] 1 mg/dL High Normal [facility] White blood cell (WBC) count Ordered By: HEALTH ASSESSMENT on 10-11-2024 WBC (Bld) [#/Vol] 8.9 10*3/uL 4.4-11.0 [facility] Influenza virus A and B and SARS-CoV-2 (COVID-19) and Respiratory syncytial virus RNAOrdered By: Per Fairchild on 09-27-2024 SARS-CoV-2 (COVID-19) RNA JIM+probe Ql (Unsp spec) [facility] M100.678on 09-27-2024 M100.678 Pending SARS-CoV-2 (COVID 19) Negative INFLUENZA A Negative INFLUENZA B Negative RSV PCR Negative Normal [facility] Comment on above: Performed By: #### L 500.4100, L501.9520, L506.1001, L501.0100, L503.0106, L506.0400 #### [facility] [address] [place], [place], [address] Pelvic w/ Transvaginalon Pelvic w/ Transvaginal [facility] [address] [place], [place] [address] Pelvic w/ Transvaginal MR#: [id number] Acct: [id number] Name: STEFANIA NICOLE Rep #: [id number] : 1990 F 34 From: Remigio giang MD PCP: Dr. Vilma Min MD Status: REG CLI Study: Pelvic w/ Transvaginal Date of Exam: 09/06/24 Exam# [id number] Ordering Dr: Kirstie Carter COMFORT FILLER COMFORT FILLER -C PROCEDURE: PELVIC W/ TRANSVAGINAL REASON FOR EXAM: Abnormal uterine bleeding. TECHNIQUE: Transabdominal and transvaginal pelvic ultrasound COMPARISON: None. FINDINGS: Measurements: Uterus: 9.6 cm x 5.8 cm x 5.4 cm with a volume of 157 mL Endometrial Thickness: 17.2 mm. This is thickened. Nabothian cyst. Right Ovary: 3.6 cm x 2.6 cm x 1.2 cm with a volume of 5.54 mL. Left Ovary: 3.2 cm x 2.5 cm x 1.6 cm with a volume of 6.64 mL. TRANSABDOMINAL: Uterus: Normal size, myometrial echotexture, and contour. Endometrium: The endometrium is thickened and measures 17.2 mm. It is hyperechoic. Heterogeneous echotexture of the myometrium although no focal fibroid is seen. Right ovary: Normal size and echotexture. Left ovary: Normal size and echotexture. No large pelvic mass identified. Transvaginal sonography was performed to better visualize the endometrium. TRANSVAGINAL: Uterus: Anteverted. Heterogeneous echotexture of the myometrium in keeping with fibroid change although no focal fibroid is seen. Endometrium: Endometrial thickening. Right ovary: Normal size and echotexture. Left ovary: Normal size and echotexture. Other adnexal findings: None. Cul-de-sac: No free intraperitoneal fluid identified. No tenderness. US/Pelvic w/ Transvaginal IMPRESSION: Endometrial thickening measuring 17.2 mm. Heterogeneous appearance of the myometrium. Reading Location: [id number] CC: NEELAM Carter; Dr. Vilma Min MD Fire Pilot: Signed [facility] Influenza virus A and B and SARS-CoV-2 (COVID-19) and Respiratory syncytial virus RNAOrdered By: Per Fairchild on 2024 SARS-CoV-2 (COVID-19) RNA JIM+probe Ql (Unsp spec) [place] [id number] 2024 SARS-CoV-2 (COVID 19 ) Negative INFLUENZA A Negative INFLUENZA B Negative RSV PCR Negative [facility] Comment on above: Performed By: #### L 500.4100, L501.9520, L506.1001, L501.0100, L503.0106, L506.0400 #### [facility] [address] [place] [address]. [place], [address] Influenza virus A and B and SARS-CoV-2 (COVID-19) and Respiratory syncytial virus RNAOrdered By: Per Fairchild on 08-17-2024 SARS-CoV-2 (COVID-19) RNA JIM+probe Ql (Unsp spec) [place] [id number] 08-17-2024 M1 Pending SARS-CoV-2 (COVID 19) Negative INFLUENZA A Negative INFLUENZA B Negative RSV PCR Negative [facility] Comment on above: Performed By: #### L 500.4100, L501.9520, L506.1001, L501.0100, L503.0106, L506.0400 #### [facility] [address] [place], [address] Absolute neutrophil countOrd ered By: Carisa Mohan on 07-01-2024 Neutrophils (Bld) [#/Vol] 4.8 10*3/uL 2.0-7.7 [facility] Basophil percentageOrdered B y: Carisa Mohan on 07-01-2024 Basophils/100 WBC (Bld) 1.0 % 0-1 [facility] CBC W/Diff, Automatedon 06-13-2023 Absolute Lymph 2.24 X10 3/uL Normal 0.83-4.51 [facility] Comment on above: Performed By: #### L 500.4100, L501.9520, L506.1001, L501.0100, L503.0106, L506.0400 #### [facility] [address] [place], [address] Absolute Neut 4.8 X10 3/uL Normal 2.0-7.7 [facility] Comment on above: Performed By: #### L 500.4100, L501.9520, L506.1001, L501.0100, L503.0106, L506.0400 #### [facility] [address] [place], [address] Basophils/100 WBC (Bld) 1.0 % Normal 0-1 [facility] Comment on above: Performed By: #### L 500.4100, L501.9520, L506.1001, L501.0100, L503.0106, L506.0400 #### [facility] [address] [place], [address] Eosinophils/100 WBC (Bld) 0.7 % Normal 0-5 [facility] Comment on above: Performed By: #### L 500.4100, L501.9520, L506.1001, L501.0100, L503.0106, L506.0400 #### [facility] [address] [place], [address] Erythrocyte distribution width (RBC) [Ratio] 12.5 % Normal 11.6-14.6 [facility] Comment on above: Performed By: #### L 500.4100, L501.9520, L506.1001, L501.0100, L503.0106, L506.0400 #### [facility] [address] [place], [address] Hematocrit (Bld) [Volume fraction] 44.5 % Normal 37-47 [facility] Comment on above: Performed By: #### L 500.4100, L501.9520, L506.1001, L501.0100, L503.0106, L506.0400 #### [facility] [address] [place], [address] Hemoglobin (Bld) [Mass/Vol] 14.9 g/dL Normal 12.0-15.0 [facility] Comment on above: Performed By: #### L 500.4100, L501.9520, L506.1001, L501.0100, L503.0106, L506.0400 #### [facility] [address] [place], [address] IG% 0.300 Normal 0.0-0.9 [facility] Comment on above: Result Comment: IG% - Immature Granulocytes (promyelocytes, myelocytes and metamyelocytes) > 1% indicates that a LEFT SHIFT is Present. Performed By: #### L 500.4100, L501.9520, L506.1001, L501.0100, L503.0106, L506.0400 #### [facility] [address] [place], [address] Lymphocytes/100 WBC (Bld) 29.2 % Normal 19-41 [facility] Comment on above: Performed By: #### L 500.4100, L501.9520, L506.1001, L501.0100, L503.0106, L506.0400 #### [facility] [address] [place], [address] MCH (RBC) [Entitic mass] 28.9 pg Normal 27.0-32.0 [facility] Comment on above: Performed By: #### L 500.4100, L501.9520, L506.1001, L501.0100, L503.0106, L506.0400 #### [facility] [address] [place], [address] MCHC (RBC) [Mass/Vol] 33.5 g/dL Normal 32-36 [facility] Comment on above: Performed By: #### L 500.4100, L501.9520, L506.1001, L501.0100, L503.0106, L506.0400 #### [facility] [address] [place], [address] MCV (RBC) [Entitic vol] 86.4 fL Normal 81-99 [facility] Comment on above: Performed By: #### L 500.4100, L501.9520, L506.1001, L501.0100, L503.0106, L506.0400 #### [facility] [address] [place], [address] Monocytes/100 WBC (Bld) 6.5 % Normal 0-10 [facility] Comment on above: Performed By: #### L 500.4100, L501.9520, L506.1001, L501.0100, L503.0106, L506.0400 #### [facility] [address] [place], [address] Neutrophils/100 WBC (Bld) 62.3 % Normal 47-70 [facility] Comment on above: Performed By: #### L 500.4100, L501.9520, L506.1001, L501.0100, L503.0106, L506.0400 #### [facility] [address] [place], [address] Nucleated RBC (Bld) [#/Vol] 0 10*3/uL Normal 0-5 [facility] Comment on above: Performed By: #### L 500.4100, L501.9520, L506.1001, L501.0100, L503.0106, L506.0400 #### [facility] [address] [place], [address] Platelet mean volume (Bld) [Entitic vol] 9.9 fL Normal 6.2-12.0 [facility] Comment on above: Performed By: #### L 500.4100, L501.9520, L506.1001, L501.0100, L503.0106, L506.0400 #### [facility] [address] [place], [address] Platelets (Bld) [#/Vol] 441 10*3/uL Normal 150-450 [facility] Comment on above: Performed By: #### L 500.4100, L501.9520, L506.1001, L501.0100, L503.0106, L506.0400 #### [facility] [address] [place], [address] RBC (Bld) [#/Vol] 5.15 10*6/uL Normal 4.2-5.4 [facility] Comment on above: Performed By: #### L 500.4100, L501.9520, L506.1001, L501.0100, L503.0106, L506.0400 #### [facility] [address] [place], [address] RDW SD 39.3 fl Normal 35.1-43.9 [facility] Comment on above: Performed By: #### L 500.4100, L501.9520, L506.1001, L501.0100, L503.0106, L506.0400 #### [facility] [address] [place], [address] WBC (Bld) [#/Vol] 7.7 10*3/uL Normal 4.4-11.0 [facility] Comment on above: Performed By: #### L 500.4100, L501.9520, L506.1001, L501.0100, L503.0106, L506.0400 #### [facility] [address] [facility] [place], [place], [id number] (822) Eosinophil percentageOrdered By: Carisa Mohan on 07-01-2024 Eosinophils/100 WBC (Bld) 0.7 % 0-5 [facility] Erythrocyte distribution wid th (RBC) [Ratio]Ordered By: Carisa Mohan on 07-01-2024 Erythrocyte distribution width (RBC) [Entitic vol] 39.3 fL 35.1-43.9 [facility] Erythrocyte distribution wid th ratioOrdered By: Carisa Mohan on 07-01-2024 Erythrocyte distribution width (RBC) [Ratio] 12.5 % 11.6-14.6 [facility] Hematocrit Auto (Bld) [Volum e fraction]Ordered By: Carisa Mohan on 07-01-2024 Hematocrit (Bld) [Volume fraction] 44.5 % 37-47 [facility] Hemoglobin measurementOrdere d By: Carisa Mohan on 07-01-2024 Hemoglobin (Bld) [Mass/Vol] 14.9 g/dL 12.0-15.0 [facility] Immature granulocytes/100 WB C Auto (Bld)Ordered By: Carisa Mohan on 07-01-2024 Immature granulocytes/100 WBC (Bld) 0.300 % 0.0-0.9 [facility] Comment on above: IG% - Immature Granu locytes (promyelocytes, myelocytes and metamyelocytes) > 1% indicates that a LEFT SHIFT is Present. Lymphocytes Auto (Unsp spec) [#/Vol]Ordered By: Carisa Mohan on 07-01-2024 Lymphocytes (Bld) [#/Vol] 2.24 10*3/uL 0.83-4.51 [facility] Lymphocytes/100 WBC Auto (Un sp spec)Ordered By: Carisa Mohan on 07-01-2024 Lymphocytes/100 WBC (Bld) 29.2 % 19-41 [facility] MCV (mean corpuscular volume ) determinationOrdered By: Carisa Mohan on 07-01-2024 MCV (RBC) [Entitic vol] 86.4 fL 81-99 [facility] Mean corpuscular hemoglobin (MCH) determinationOrdered By: Carisa Mohan on 07-01-2024 MCH (RBC) [Entitic mass] 28.9 pg 27.0-32.0 [facility] Mean corpuscular hemoglobin concentration (MCHC) determinationOrdered By: Carisa Mohan on 07-01-2024 MCHC (RBC) [Mass/Vol] 33.5 g/dL 32-36 [facility] Mean platelet volume determi nationOrdered By: Carisa Mohan on 07-01-2024 Platelet mean volume (Bld) [Entitic vol] 9.9 fL 6.2-12.0 [facility] Monocyte percentageOrdered B y: Carisa Mohan on 07-01-2024 Monocytes/100 WBC (Bld) 6.5 % 0-10 [facility] Neutrophil percentageOrdered By: Carisa Mohan on 07-01-2024 Neutrophils/100 WBC (Bld) 62.3 % 47-70 [facility] Nucleated red blood cell per centageOrdered By: Carisa Mohan on 07-01-2024 Nucleated RBC/100 WBC (Bld) [Ratio] 0 % 0-5 [facility] Platelet countOrdered By: Jhoana Mohan on 07-01-2024 Platelets (Bld) [#/Vol] 441 10*3/uL 150-450 [facility] RBC Auto (Bld) [#/Vol]Ordere d By: Carisa Mohan on 07-01-2024 RBC (Bld) [#/Vol] 5.15 10*6/uL 4.2-5.4 [facility] White blood cell (WBC) count Ordered By: Carisa Mohan on 07-01-2024 WBC (Bld) [#/Vol] 7.7 10*3/uL 4.4-11.0 [facility] Internal Medicine Office Vis iton 05-20-2024 Internal Medicine Office Visit [facility] [address] [place] [id number] OFFICE VISIT Date of Service: 05/24/24 MR#: [id number] Acct: [id number] Name: STEFANIA NICOLE Rep #: [id number] : 1990 Provider: Dr. Vilma rey MD Age/Sex: 33/F Location: [facility] Status: Signed with Addenda ADDENDUM by SUDHEER Pereira on 05/24/24 at 0959 Office Procedure Documentation entered by Bernarda Pereira MA 05/24/24 09:59: Immunizations Flucelvax Triv 9030-2886 (PF) 45 mcg (15 mcg x 3)/0.5 mL IM syringe Performing Provider: Vilma Min MD Performing Location: [place] [facility] Administered by: Bernarda Pereira MA on 05/24/24 09:57 Dose Route Admin Location Dispensed Lot Number Expiration Date [facility] Man ufacturer 0.5 mL IM Left Deltoid 0.5 mL [id number] 12/08/24 [id number] [employer] 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 Company Required: No Accompanied by: Self Is patient in pain?: No Allergies amoxicillin (From Augmentin) Allergy (Mild, Verified 05/24/24 08:52) Diarrhea clavulanic acid (From Augmentin) Allergy (Mild, Verified 05/24/24 08:52) Diarrhea Medications ???Medication ???Instructions ???Recorded ???Confirmed ???Type levonorgestrel 0.15 mg-ethinyl 1 tab PO DAILY #84 tabs 05/12/24 05/24/24 Rx estradiol 0.03 mg tablet (Altavera (28)) metoclopramide HCl 5 mg tablet 5 mg PO QAC 2 weeks #42 tabs 05/22/24 05/24/24 Rx metronidazole 1 % topical gel 1 applic topical QHS #60 grams 05/24/24 05/24/24 Rx (Metrogel) sumatriptan succinate 25 mg tablet See Rx Instructions PO .COMPLEX #7 05/24/24 05/24/24 Rx (Imitrex) tabs PFSH Surgical History No significant past surgical history Family History (Updated 05/24/24 @ 09:[address] Vilma Min MD) Grandfather Cancer Lung- maternal Grandmother Breast cancer Paternal Diabetes Father Diabetes Grandmother Diabetes Grandfather Heart disease Social History household members: spouse current occupational status: employed current occupation: [employer] Smoking Status: Never smoker alcohol intake: never substance use type: does not use seatbelt use: always do you feel safe at home: Yes additional social history: - Hu [employer] [facility] HPI Chief Complaint: est care Details: STEFANIA NICOLE, is a 33 F who presents to the office today to establish care. She was seeing [facility] and last saw them about a year ago. She is not due for any routine blood work. She is due for a pap smear and follows with OBGYN. She isn't due for any immunizations. She doesn't smoke and doesn't need any refills. She reports she is eating healthy and staying active. The patient has a history of abdominal symptoms including diarrhea, constipation, bloating. She saw GI last month and had a work up which was fairly unremarkable. She was placed on a course of xifaxin. She reports that it did seem to help. She reports her diarrhea resolved, but now she is having ongoing constipation. She recently completed a gastric emptying study and was started on metoclopramide. She reports she hasn't yet picked up the prescription. The patient has concerns about her skin. She reports she will have episodes of the skin on her face getting red, itchy and flaky. She reports it has been going on for at least 6 years after she had her daughter. She never discussed it with her previous PCP. She reports she never thought of it until people started pointing it out. She reports she will just use normal facewash. She can't recall any specific triggers. The patient also has concerns about headaches. She reports she gets a headache at least twice per week. She reports they feel like a pounding sensation, with associated nausea and photosensitivity. She reports it feels like it is all over her head including behind her eye. She denies any vomiting. She denies any vision or hearing changes. She reports she has had problems with headaches for about 4 years. She reports just in the last year they seem to have worsened. She reports they can last as long as a few days. She r (more content not included)... Normal [facility] Gastric Emptying Studyon Gastric Emptying Study [facility] Imaging Services [address] [place] [address] Gastric Emptying Study MR#: [id number] Acct: [id number] Name: STEFANIA NICOLE Rep #: [id number] : 1990 F 33 From: Peter Martinez PCP: SILVANO GRACE MD Status: REG CL Study: Gastric Emptying Study Date of Exam: 05/18/24 Exam# [id number] Ordering Dr: Ana Paula Palmer [employer]-C [id number] CLINICAL: 33-year-old female with history of early satiety. SEMI-SOLID PHASE 99m Tc SULFUR COLLOID GASTRIC EMPTYING STUDY COMPARISON: None available FINDINGS: The patient was administered 1.1 mCi of 99m Tc sulfur colloid mixed with oatmeal and consumed per os. Image acquisitions in the anterior-posterior projections were obtained for 60 minutes. There is prompt visualization of the stomach. There is no gastroesophageal reflux identified. The T ? linear fit was calculated to be 55.78 minutes, (Normal: 12-56 minutes). NM/Gastric Emptying Study IMPRESSION: 1. UPPER LIMITS OF NORMAL 99m Tc sulfur colloid semi-solid phase (oatmeal) gastric emptying imaging examination. A. There is normal semi-solid phase gastric emptying compared to normal controls. (Graeme et al, J Nucl Med Tech 38: 186, 2010). Electronically Signed: Peter Ritter DO at 7:47 EST , CC: NEELAM Palmer; SILVANO GRACE MD Fire Pilot: Signed Normal [facility] Genital Culture Comprehensiv elio 05-15-2024 [facility] Reason for Exam: Vag inal discharge Normal vaginal bob isolated. No yeast, Gardnerella, Neisseria or beta-hemolytic Streptococcus isolated. Normal [facility] Comment on above: Performed By: #### L 500.4100, L501.9520, L506.1001, L501.0100, L503.0106, L506.0400 #### [facility] [address] [place], [place], [id number] Gram Stainon 05-12-2024 Reason for Exam: Vag inal discharge Gram Stain 3+ Gram positive rods No Gram negative diplococci No White Blood Cells Score = 1 Interpretation: 0-3 Normal, 4-6 Intermediate, 7-10 Positive BV Normal [facility] Comment on above: Performed By: #### L 500.4100, L501.9520, L506.1001, L501.0100, L503.0106, L506.0400 #### [facility] [address] [place], [place], [address] Professional [facility] Office Visit Reporton 05-12-2024 [facility] Office Visit Report [facility] [address], [address] [place] [address] OFFICE VISIT Date of Service: 05/12/24 MR#: [id number] Acct: [id number] Name: STEFANIA NICOLE Rep #: [id number] : 1990 Provider: NEELAM coronado Age/Sex: 33/F Location[place] [facility] Status: Signed Intake Vital Signs 05/12/24 14:18 Height 5 ft 2 in Weight: 145 lb 2 oz BMI 26.5 BP 118/84 H Intake Visit Reasons: Brown discharge x 2 weeks Chief Complaint: Brown discharge x 2 weeks Manager Company Required: No Is patient in pain?: No Allergies amoxicillin (From Augmentin) Allergy (Mild, Verified 05/12/24 14:21) Diarrhea clavulanic acid (From Augmentin) Allergy (Mild, Verified 05/12/24 14:21) Diarrhea Medications ???Medication ???Instructions ???Recorded ???Confirmed ???Type levonorgestrel 0.15 mg-ethinyl 1 tab PO DAILY #84 tabs 05/12/24 05/12/24 Rx estradiol 0.03 mg tablet (Altavera (28)) Is last menstrual period known: Yes Last Menstrual Period: 05/11/24 Post menopausal: No Patient : No : No Control Method: OCP ON LICENSE OF [facility] Surgical History No significant past surgical history Family History (Updated 05/12/24 @ 14:25 by Thao Selby) Grandfather Cancer Lung- maternal Grandmother Breast cancer Paternal Social History (Updated 05/12/24 @ 14:25 by Thao Selby) household members: spouse current occupational status: employed 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 Denies new sexual partner. Denies irritation or itching but has noted slight odor. She is on full menses today. States was seeing provider in [place] and has tried orthotricyclen, loloestrin and now the lo tri daphne and always has brown discharge. 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 Date Name GA/Weeks Outcome Route Bth Weight Gen Labor Lgth Anesthesia Del Locatn Provider FOB Unknown Nita Unknown Pavel ROS Const Constitutional: Reports system reviewed and no additional complaints, except as documented Eyes Eyes: Reports system reviewed and no additional complaints, except as documented GI GI: Denies abdominal pain or change in bowel habits : Reports as per HPI Exam Const General: cooperative and no acute distress Orientation: oriented x3 General: bladder normal to palpation External Female Exam: normal external appearance and normal appearance of the urethra Urethra: normal appearance of the urethra Speculum Exam - Vagina: normal appearance of the vagina, normal vaginal discharge (menses, dark color), no lesions and nontender Speculum Exam - Cervix: normal appearance of the cervix Bimanual Exam- Vagina Uterus: normal bimanual exam, uterine size normal, bladder normal to palpation, uterine shape normal, uterine mobility normal and non-tender Bimanual Exam- Adnexa, other: normal adnexae, no masses and non-tender Coding Level of Care Code Off vis,new,level 3 Diagnoses Abnormal uterine bleeding (AUB) N93.9 Vaginal odor N89.8 Assessment and Plan Assessment and Plan (1) Abnormal uterine bleeding (AUB): (2) Vaginal odor: Medications: New levonorgestrel-ethinyl estrad 0.15-0.03 mg (Altavera (28)) 1 TAB PO DAILY 84 tabs 3RF Discontinued norgestimate-ethinyl estradiol 0.18/0.215/0.25 mg-25 mcg (Tri-Lo-Daphne) Discontinued Reason: Order Changed 1 TAB PO QDAY Plan Change to Altavera on Friday and reviewed condoms use Comp Vag culture-call positive RTO 2-3 mo follow up and also pap 05/12/24 1443 Date Kirstie Carter COMF[employer] FILLER [employer] Cosigner Signature: Date (if applicable) CC: Normal [facility] Calprotectin, Stoolon [address] 9 ug/g Normal 0-120 [facility] Comment on above: Order Comment: Test( s) [id number], Neutral; [id number]-Njds, Totalwas developed and its performance characteristicsdetermined by [employer]. It has not been cleared or approvedby the Food and Drug Administration. Result Comment: Conc entration Interpretation Follow-Up < 5 - 50 ug/g Normal None >50 -120 ug/g Borderline Re-evaluate in 4-6 weeks >120 ug/g Abnormal Repeat as clinically indicated Performed at: [address] [id number] [place]: Eddie Sanchez PhD, Phone: [phone] Performed at: [address] [id number] [place]: Norma Rutherford MD, Phone: [phone] Performed By: #### L 500.4100, L501.9620, L506.1001, L501.0100, L503.0106, L506.0400 #### [facility] [address] [place], [address] Fecal Fat, Qualitativeon FATS, NEUTRAL Normal Normal . [facility] Comment on above: Order Comment: Test( s) [id number]-Lrmf, Neutral; [id number]-Cujr, Totalwas developed and its performance characteristicsdetermined by [employer]. It has not been cleared or approvedby the Food and Drug Administration. Result Comment: Norm al (<60 Droplets/HPF) Performed By: #### L 500.4100, L501.9520, L506.1001, L501.0100, L503.0106, L506.0400 #### [facility] [address] [place], [place], [address] FATS, TOTAL Increased Normal . [facility] Comment on above: Order Comment: Test( s) [id number]-Wkps, Neutral; [id number]-Jhqf, Totalwas developed and its performance characteristicsdetermined by [employer]. It has not been cleared or approvedby the Food and Drug Administration. Result Comment: Norm al (<100 Droplets/HPF) Performed By: #### L 500.4100, L501.9520, L506.1001, L501.0100, L503.0106, L506.0400 #### [facility] [address] [place], [place], [id number] Giardia Lamblia, Stool EIAon 03-29-2024 Giardia Stool Negative Normal Negative [facility] Comment on above: Result Comment: Perf ormed at: [address] [id number] [place]: Norma Rutherford MD, Phone: [phone] Performed at: [address] [id number] [place]: Eddie Sanchez PhD, Phone: [phone] Performed By: #### L 500.4100, L501.9520, L506.1001, L501.0100, L503.0106, L506.0400 #### [facility] [address] [place], [place], [id number] L7000.0750on 03-29-2024 P ELASTASE,FECA > 800 Normal >200 [facility] Comment on above: Result Comment: Resu lt Units: ug Elast./g Severe Pancreatic Insufficiency: <100 Moderate Pancreatic Insufficiency: 100 - 200 Normal: >200 Performed By: #### L 500.4100, L501.9520, L506.1001, L501.0100, L503.0106, L506.0400 #### [facility] [address] [place], [place], [address] JUNI Comprehensive Panelon JUNI TABLE Comment Normal . [facility] Comment on above: Result Comment: Auto antibody Disease Association Condition Frequency --------- Antinuclear Antibody, SLE, mixed connective Direct (JUNI-D) tissue diseases --------- dsDNA SLE 40 - 60% --------- Chromatin Drug induced SLE 90% SLE 48 - 97% --------- SSA (Ro) SLE 25 - 35% Sjogren's Syndrome 40 - 70% Lupus 100% --------- SSB (La) SLE 10% Sjogren's Syndrome 30% --------- Sm (anti-Rodríguez) SLE 15 - 30% --------- ENVIRONMENTAL SERVICES COORDINATOR Mixed Connective Tissue Disease 95% (U1 nRNP, SLE 30 - 50% anti-ribonucleoprotein) Polymyositis and/or Dermatomyositis 20% --------- Scl-70 (antiDNA Scleroderma (diffuse) 20 - 35% topoisomerase) Crest 13% --------- Karla-1 Polymyositis and/or Dermatomyositis 20 - 40% --------- Centromere B Scleroderma - Crest variant 80% Performed By: #### L 500.4100, L501.9520, L506.1001, L501.0100, L503.0106, L506.0400 #### [facility] [address] [facility] [place], [place], [id number] ANTI-CENT B AB <0.2 Normal 0.0-0.9 [facility] Comment on above: Performed By: #### L 500.4100, L501.9520, L506.1001, L501.0100, L503.0106, L506.0400 #### [facility] [address] [place], [address] ANTI-DNA (DS)AB 1 IU/mL Normal 0-9 [facility] Comment on above: Result Comment: Nega tive <5 Equivocal 5 - 9 Positive >9 Performed By: #### L 500.4100, L501.9520, L506.1001, L501.0100, L503.0106, L506.0400 #### [facility] [address] [place], [address] ANTI-KARLA-1 <0.2 Normal 0.0-0.9 [facility] Comment on above: Performed By: #### L 500.4100, L501.9520, L506.1001, L501.0100, L503.0106, L506.0400 #### [facility] [address] [place], [address] ANTI-SS-A < 0.2 Normal 0.0-0.9 [facility] Comment on above: Performed By: #### L 500.4100, L501.9520, L506.1001, L501.0100, L503.0106, L506.0400 #### [facility] [address] [place], [address] ANTI-SS-B < 0.2 Normal 0.0-0.9 [facility] Comment on above: Performed By: #### L 500.4100, L501.9520, L506.1001, L501.0100, L503.0106, L506.0400 #### [facility] [address] [place], [address] ANTICHROMATIN <0.2 Normal 0.0-0.9 [facility] Comment on above: Performed By: #### L 500.4100, L501.9520, L506.1001, L501.0100, L503.0106, L506.0400 #### [facility] [address] [place], [address] ANTISCLERODERM <0.2 Normal 0.0-0.9 [facility] Comment on above: Performed By: #### L 500.4100, L501.9520, L506.1001, L501.0100, L503.0106, L506.0400 #### [facility] [address] [place], [address] ENVIRONMENTAL SERVICES COORDINATOR Ab <0.2 Normal 0.0-0.9 [facility] Comment on above: Performed By: #### L 500.4100, L501.9520, L506.1001, L501.0100, L503.0106, L506.0400 #### [facility] [address] [place], [address] RODRÍGUEZ Ab <0.2 Normal 0.0-0.9 [facility] Comment on above: Performed By: #### L 500.4100, L501.9520, L506.1001, L501.0100, L503.0106, L506.0400 #### [facility] [address] [place], [address] L5500.0550on 03-27-2024 BEEF <0.10 Normal Class 0 [facility] Comment on above: Performed By: #### L 700.8000 #### [facility] [address] [place], [address] CHOCOLATE <0.10 Normal Class 0 [facility] Comment on above: Performed By: #### L 700.8000 #### [facility] [address] [place], [address] CODFISH <0.10 Normal Class 0 [facility] Comment on above: Performed By: #### L 700.8000 #### [facility] [address] [place], [address] COMMENT Comment Normal . [facility] Comment on above: Result Comment: Leve ls of Specific IgE Class Description of Class ----- < 0.10 0 Negative 0.10 - 0.31 0/I Equivocal/Low 0.32 - 0.55 I Low 0.56 - 1.40 II Moderate 1.41 - 3.90 III High 3.91 - 19.00 IV Very High 19.01 - 100.00 V Very High >100.00 Very High Performed By: #### L 700.8000 #### [facility] [address] [place], [place], [id number] CORN <0.10 Normal Class 0 [facility] Comment on above: Performed By: #### L 700.8000 #### [facility] [address] [place], [place], [id number] EGG, WHOLE <0.10 Normal Class 0 [facility] Comment on above: Result Comment: Perf ormed at: [facility] [id number] [place]: Eddie Sanchez PhD, Phone: [phone] Performed at: [facility] [id number] [place]: Norma Rutherford MD, Phone: [phone] Performed By: #### L 700.8000 #### [facility] [address] [place], [place], [id number] MILK (COW) <0.10 Normal Class 0 [facility] Comment on above: Performed By: #### L 700.8000 #### [facility] [address] [place], [place], [id number] MUSSELS <0.10 Normal Class 0 [facility] Comment on above: Performed By: #### L 700.8000 #### [facility] [address] [place], [address] PEANUT <0.10 Normal Class 0 [facility] Comment on above: Performed By: #### L 700.8000 #### [facility] [address] [place], [address] PORK <0.10 Normal Class 0 [facility] Comment on above: Performed By: #### L 700.8000 #### [facility] [address] [place], [address] SALMON <0.10 Normal Class 0 [facility] Comment on above: Performed By: #### L 700.8000 #### [facility] [address] [place], [address] SHRIMP <0.10 Normal Class 0 [facility] Comment on above: Performed By: #### L 700.8000 #### [facility] [address] [place], [address] SOYBEAN <0.10 Normal Class 0 [facility] Comment on above: Performed By: #### L 700.8000 #### [facility] [address] [place], [address] TUNA <0.10 Normal Class 0 [facility] Comment on above: Performed By: #### L 700.8000 #### [facility] [address] [place], [address] WHEAT <0.10 Normal Class 0 [facility] Comment on above: Performed By: #### L 700.8000 #### [facility] [address] [place], [address] ANCAon 03-26-2024 Atypical pANCA <1:20 Normal Neg:<1:20 [facility] Comment on above: Order Comment: N Result Comment: The atypical pANCA pattern has been observed in a significant percentage of patients with ulcerative colitis, primary sclerosing cholangitis and autoimmune hepatitis. Performed at: [facility] [id number] [place]: Eddie Sanchez PhD, Phone: [phone] Performed at: [facility] [id number] [place]: Norma Rutherford MD, Phone: [phone] Performed By: #### L 500.4100, L501.9520, L506.1001, L501.0100, L503.0106, L506.0400 #### [facility] [address] [place], [address] Cytoplasmic Ab <1:20 Normal Neg:<1:20 [facility] Comment on above: Order Comment: N Performed By: #### L 500.4100, L501.9520, L506.1001, L501.0100, L503.0106, L506.0400 #### [facility] [address] [place], [address] Perinuclear Ab. <1:20 Normal Neg:<1:20 [facility] Comment on above: Order Comment: N Result Comment: The presence of positive fluorescence exhibiting P-ANCA or C-ANCA patterns alone is not specific for the diagnosis of Nell's Granulomatosis (WG) or microscopic polyangiitis. Decisions about treatment should not be based solely on ANCA IFA results. The International ANCA [employer] Consensus recommends follow up testing of positive sera with both SC- 3 and MPO-ANCA enzyme immunoassays. As many as 5% serum samples are positive only by EIA. Ref. AM J Clin Pathol 1999;111:507-513. Performed By: #### L 500.4100, L501.9520, L506.1001, L501.0100, L503.0106, L506.0400 #### [facility] [address] [place], [address] Celiac Disease Profileon ENDOMYSIAL IGA Negative Normal Negative [facility] Comment on above: Order Comment: N Performed By: #### L 500.4100, L501.9520, L506.1001, L501.0100, L503.0106, L506.0400 #### [facility] [address] [place], [place], [id number] tTG IGA <2 Normal 0-3 [facility] Comment on above: Order Comment: N Result Comment: Nega tive 0 - 3 Weak Positive 4 - 10 Positive >10 Tissue Transglutaminase (tTG) has been identified as the endomysial antigen. Studies have demonstr- ated that endomysial IgA antibodies have over 99% specificity for gluten sensitive enteropathy. Performed By: #### L 500.4100, L501.9520, L506.1001, L501.0100, L503.0106, L506.0400 #### [facility] [address] [place] [id number] CORIE + Protein Elect, Serumon 03-26-2024 Albumin [Mass/Vol] 3.9 g/dL Normal 2.9-4.4 [facility] Comment on above: Order Comment: N Performed By: #### L 500.4100, L501.9520, L506.1001, L501.0100, L503.0106, L506.0400 #### [facility] [address] [place] [id number] Albumin/Globulin [Mass ratio] 1.5 {ratio} Normal 0.7-1.7 [facility] Comment on above: Order Comment: N Performed By: #### L 500.4100, L501.9520, L506.1001, L501.0100, L503.0106, L506.0400 #### [facility] [address] [facility] [address] HTELY-0-GCUO 0.2 g/dL Normal 0.0-0.4 [facility] Comment on above: Order Comment: N Performed By: #### L 500.4100, L501.9520, L506.1001, L501.0100, L503.0106, L506.0400 #### [facility] [address] [place], [address] JGLAA-4-LIZU 0.7 g/dL Normal 0.4-1.0 [facility] Comment on above: Order Comment: N Performed By: #### L 500.4100, L501.9520, L506.1001, L501.0100, L503.0106, L506.0400 #### [facility] [address] [place], [address] BETA GLOBULIN 1.0 g/dL Normal 0.7-1.3 [facility] Comment on above: Order Comment: N Performed By: #### L 500.4100, L501.9520, L506.1001, L501.0100, L503.0106, L506.0400 #### [facility] [address] [place], [address] GAMMA GLOBULIN 0.8 g/dL Normal 0.4-1.8 [facility] Comment on above: Order Comment: N Performed By: #### L 500.4100, L501.9520, L506.1001, L501.0100, L503.0106, L506.0400 #### [facility] [address] [place], [address] Globulin (S) [Mass/Vol] 2.7 g/dL Normal 2.2-3.9 [facility] Comment on above: Order Comment: N Performed By: #### L 500.4100, L501.9520, L506.1001, L501.0100, L503.0106, L506.0400 #### [facility] [address] [place], [address] CORIE RESULT,S Comment Normal . [facility] Comment on above: Order Comment: N Result Comment: No m onoclonality detected. Performed By: #### L 500.4100, L501.9520, L506.1001, L501.0100, L503.0106, L506.0400 #### [facility] [address] [place], [address] IMMUNOGLOB A QN 174 mg/dL Normal 87-352 [facility] Comment on above: Order Comment: N Performed By: #### L 500.4100, L501.9520, L506.1001, L501.0100, L503.0106, L506.0400 #### [facility] [address] [place], [address] IMMUNOGLOB G QN 876 mg/dL Normal 586-1602 [facility] Comment on above: Order Comment: N Performed By: #### L 500.4100, L501.9520, L506.1001, L501.0100, L503.0106, L506.0400 #### [facility] [address] [place], [address] IMMUNOGLOB M QN 96 mg/dL Normal 26-217 [facility] Comment on above: Order Comment: N Performed By: #### L 500.4100, L501.9520, L506.1001, L501.0100, L503.0106, L506.0400 #### [facility] [address] [place], [address] M-Erick Not Observed Normal Not Observed [facility] Comment on above: Order Comment: N Performed By: #### L 500.4100, L501.9520, L506.1001, L501.0100, L503.0106, L506.0400 #### [facility] [address] [place], [address] NOTE: Comment Normal . [facility] Comment on above: Order Comment: N Result Comment: Prot ein electrophoresis scan will follow via computer, mail, or professional bondsman delivery. Performed By: #### L 500.4100, L501.9520, L506.1001, L501.0100, L503.0106, L506.0400 #### [facility] [address] [place], [address] Protein [Mass/Vol] 6.6 g/dL Normal 6.0-8.5 [facility] Comment on above: Order Comment: N Performed By: #### L 500.4100, L501.9520, L506.1001, L501.0100, L503.0106, L506.0400 #### [facility] [address] [place], [address] Immunoglobulins G/A/M/Elio IMMUNOGLOB E QN 8 IU/mL Normal 6-495 [facility] Comment on above: Order Comment: N Performed By: #### L 500.4100, L501.9520, L506.1001, L501.0100, L503.0106, L506.0400 #### [facility] [address], [address] L2100.0000on 03-26-2024 ACCA 11 units Normal 0-90 [facility] Comment on above: Order Comment: N Result Comment: Nega tive: <80 Equivocal: 80-90 Positive: >90 Performed By: #### L 500.4100, L501.9520, L506.1001, L501.0100, L503.0106, L506.0400 #### [facility] [address] [place], [address] ALCA 4 units Normal 0-60 [facility] Comment on above: Order Comment: N Result Comment: Nega tive:<55 Equivocal: 55-60 Positive: >60 Performed By: #### L 500.4100, L501.9520, L506.1001, L501.0100, L503.0106, L506.0400 #### [facility] [address] [place], [address] AMCA 3 units Normal 0-100 [facility] Comment on above: Order Comment: N Result Comment: Nega tive: <90 Equivocal: 90-100 Positive: >100 This test was developed and its performance characteristics determined by [employer]. It has not been cleared or approved by the Food and Drug Administration. The FDA has determined that such clearance or approval is not necessary. Performed By: #### L 500.4100, L501.9520, L506.1001, L501.0100, L503.0106, L506.0400 #### [facility] [address] [place], [address] Atypical pANCA Negative Normal Negative [facility] Comment on above: Order Comment: N Performed By: #### L 500.4100, L501.9520, L506.1001, L501.0100, L503.0106, L506.0400 #### [facility] [address] [place], [address] COMMENT Comment Normal . [facility] Comment on above: Order Comment: N Result Comment: Yvonne braydon is not suggestive of Inflammatory Bowel Disease Performed By: #### L 500.4100, L501.9520, L506.1001, L501.0100, L503.0106, L506.0400 #### [facility] [address] [place], [address] Dick 24 units Normal 0-50 [facility] Comment on above: Order Comment: N Result Comment: Nega tive: <45 Equivocal: 45-50 Positive: >50 Performed By: #### L 500.4100, L501.9520, L506.1001, L501.0100, L503.0106, L506.0400 #### [facility] [address] [place], [address] ENTERIC PATHOGEN PANEL STOOL on 03-24-2024 EP PANEL Normal Reference Ran ge = Not Detected GI pathogens Pnl Stl JIM+probe Nucleic acid amplification test method Not detected for Campylobacter group, Salmonella species, Shigella species, Vibrio Group, Yersinia enterocolitica, EHEC (Shiga Toxin 1, Shiga Toxin 2), Norovirus Gl/Gll, and Rotavirus A. Other common stool pathogens are not detected on this panel include: Aeromonas/Plesiomonas or parasites. Order testing for these organisms separately if suspected. This is an amplified DNA test which makes it both specific and sensitive. CAMPYLOBACTER Not Detected Norovirus Not Detected Rotavirus Not Detected Salmonella Not Detected Shiga Toxin Not Detected Shigella sp. Not Detected VIBRIO Not Detected Yersinia Not Detected Normal [facility] Comment on above: Performed By: #### L 500.4100, L501.9520, L506.1001, L501.0100, L503.0106, L506.0400 #### [facility] [address] [place], [place], [address] Stool Lactoferrin/WBCon 03-14 WBCST Normal Reference Ran ge = Negative Fecal WBC Lactoferrin Negative: No Fecal WBC Lactoferrin present Normal [facility] Comment on above: Performed By: #### L 500.4100, L501.9520, L506.1001, L501.0100, L503.0106, L506.0400 #### [facility] [address] [place], [place], [address] CBC W/Diff, Automatedon 03-14 Absolute Lymph 1.89 X10 3/uL Normal 0.83-4.51 [facility] Comment on above: Performed By: #### L 500.4100, L501.9520, L506.1001, L501.0100, L503.0106, L506.0400 #### [facility] [address] [place], [address] Absolute Neut 2.6 X10 3/uL Normal 2.0-7.7 [facility] Comment on above: Performed By: #### L 500.4100, L501.9520, L506.1001, L501.0100, L503.0106, L506.0400 #### [facility] [address] [place], [address] Basophils/100 WBC (Bld) 0.6 % Normal 0-1 [facility] Comment on above: Performed By: #### L 500.4100, L501.9520, L506.1001, L501.0100, L503.0106, L506.0400 #### [facility] [address] [place], [address] Eosinophils/100 WBC (Bld) 0.8 % Normal 0-5 [facility] Comment on above: Performed By: #### L 500.4100, L501.9520, L506.1001, L501.0100, L503.0106, L506.0400 #### [facility] [address] [place], [address] Erythrocyte distribution width (RBC) [Ratio] 12.4 % Normal 11.6-14.6 [facility] Comment on above: Performed By: #### L 500.4100, L501.9520, L506.1001, L501.0100, L503.0106, L506.0400 #### [facility] [address] [place], [address] Hematocrit (Bld) [Volume fraction] 41.0 % Normal 37-47 [facility] Comment on above: Performed By: #### L 500.4100, L501.9520, L506.1001, L501.0100, L503.0106, L506.0400 #### [facility] [address] [place], [address] Hemoglobin (Bld) [Mass/Vol] 13.7 g/dL Normal 12.0-15.0 [facility] Comment on above: Performed By: #### L 500.4100, L501.9520, L506.1001, L501.0100, L503.0106, L506.0400 #### [facility] [address] [place], [address] IG% 0.200 Normal 0.0-0.9 [facility] Comment on above: Result Comment: IG% - Immature Granulocytes (promyelocytes, myelocytes and metamyelocytes) > 1% indicates that a LEFT SHIFT is Present. Performed By: #### L 500.4100, L501.9520, L506.1001, L501.0100, L503.0106, L506.0400 #### [facility] [address] [place], [address] Lymphocytes/100 WBC (Bld) 38.8 % Normal 19-41 [facility] Comment on above: Performed By: #### L 500.4100, L501.9520, L506.1001, L501.0100, L503.0106, L506.0400 #### [facility] [address] [place], [address] MCH (RBC) [Entitic mass] 28.5 pg Normal 27.0-32.0 [facility] Comment on above: Performed By: #### L 500.4100, L501.9520, L506.1001, L501.0100, L503.0106, L506.0400 #### [facility] [address] [place], [address] MCHC (RBC) [Mass/Vol] 33.4 g/dL Normal 32-36 [facility] Comment on above: Performed By: #### L 500.4100, L501.9520, L506.1001, L501.0100, L503.0106, L506.0400 #### [facility] [address] [place], [address] MCV (RBC) [Entitic vol] 85.4 fL Normal 81-99 [facility] Comment on above: Performed By: #### L 500.4100, L501.9520, L506.1001, L501.0100, L503.0106, L506.0400 #### [facility] [address] [place], [address] Monocytes/100 WBC (Bld) 6.0 % Normal 0-10 [facility] Comment on above: Performed By: #### L 500.4100, L501.9520, L506.1001, L501.0100, L503.0106, L506.0400 #### [facility] [address] [place], [address] Neutrophils/100 WBC (Bld) 53.6 % Normal 47-70 [facility] Comment on above: Performed By: #### L 500.4100, L501.9520, L506.1001, L501.0100, L503.0106, L506.0400 #### [facility] [address] [place], [address] Nucleated RBC (Bld) [#/Vol] 0 10*3/uL Normal 0-5 [facility] Comment on above: Performed By: #### L 500.4100, L501.9520, L506.1001, L501.0100, L503.0106, L506.0400 #### [facility] [address] [place], [address] Platelet mean volume (Bld) [Entitic vol] 9.3 fL Normal 6.2-12.0 [facility] Comment on above: Performed By: #### L 500.4100, L501.9520, L506.1001, L501.0100, L503.0106, L506.0400 #### [facility] [address] [place], [address] Platelets (Bld) [#/Vol] 303 10*3/uL Normal 150-450 [facility] Comment on above: Performed By: #### L 500.4100, L501.9520, L506.1001, L501.0100, L503.0106, L506.0400 #### [facility] [address] [place], [address] RBC (Bld) [#/Vol] 4.80 10*6/uL Normal 4.2-5.4 [facility] Comment on above: Performed By: #### L 500.4100, L501.9520, L506.1001, L501.0100, L503.0106, L506.0400 #### [facility] [address] [place], [address] RDW SD 38.5 fl Normal 35.1-43.9 [facility] Comment on above: Performed By: #### L 500.4100, L501.9520, L506.1001, L501.0100, L503.0106, L506.0400 #### [facility] [address] [place], [address] WBC (Bld) [#/Vol] 4.9 10*3/uL Normal 4.4-11.0 [facility] Comment on above: Performed By: #### L 500.4100, L501.9520, L506.1001, L501.0100, L503.0106, L506.0400 #### [facility] [address] [place], [address] CRPon 03-23-2024 C-REACTIVE PROT < 2.90 Normal 0.0-3.0 [facility] Comment on above: Order Comment: 1 Result Comment: C-Re active Protein (CRP) provides useful information for the diagnosis, therapy and monitoring of inflammatory processes and associated diseases. For the evaluation of Relative Risk for Cardiovascular Disease, a High Sensitivity CRP (HSCRP) should be ordered. Performed By: #### L 500.4100, L501.9520, L506.1001, L501.0100, L503.0106, L506.0400 #### [facility] [address] [place], [address] Comprehensive Metabolic Prof ilon 03-23-2024 Albumin [Mass/Vol] 3.9 g/dL Normal 3.2-5.0 [facility] Comment on above: Order Comment: 1 Performed By: #### L 500.4100, L501.9520, L506.1001, L501.0100, L503.0106, L506.0400 #### [facility] [address] [place], [address] Albumin/Globulin [Mass ratio] 1.2 {ratio} Normal 0.9-2.4 [facility] Comment on above: Order Comment: 1 Performed By: #### L 500.4100, L501.9520, L506.1001, L501.0100, L503.0106, L506.0400 #### [facility] [address] [place], [address] ALK P 47 U/L Normal 45-117 [facility] Comment on above: Order Comment: 1 Performed By: #### L 500.4100, L501.9520, L506.1001, L501.0100, L503.0106, L506.0400 #### [facility] [address] [place], [address] ALT [Catalytic activity/Vol] 29 U/L Normal 13-56 [facility] Comment on above: Order Comment: 1 Performed By: #### L 500.4100, L501.9520, L506.1001, L501.0100, L503.0106, L506.0400 #### [facility] [address] [place], [address] AST [Catalytic activity/Vol] 11 U/L Low 15-37 [facility] Comment on above: Order Comment: 1 Performed By: #### L 500.4100, L501.9520, L506.1001, L501.0100, L503.0106, L506.0400 #### [facility] [address] [place], [address] Bilirubin [Mass/Vol] 0.50 mg/dL Normal 0.20-1.00 [facility] Comment on above: Order Comment: 1 Result Comment: For patients on eltrombopag therapy, use of Dimension [place] TBIL is not recommended. Performed By: #### L 500.4100, L501.9520, L506.1001, L501.0100, L503.0106, L506.0400 #### [facility] [address] [place], [address] BUN/CRE 12.3 RATIO Normal 10-20 [facility] Comment on above: Order Comment: 1 Performed By: #### L 500.4100, L501.9520, L506.1001, L501.0100, L503.0106, L506.0400 #### [facility] [address] [place], [address] CA,Total 9.2 mg/dL Normal 8.5-10.1 [facility] Comment on above: Order Comment: 1 Performed By: #### L 500.4100, L501.9520, L506.1001, L501.0100, L503.0106, L506.0400 #### [facility] [address] [place], [address] Chloride [Moles/Vol] 109 mmol/L High 98-107 [facility] Comment on above: Order Comment: 1 Performed By: #### L 500.4100, L501.9520, L506.1001, L501.0100, L503.0106, L506.0400 #### [facility] [address] [place], [address] CO2 [Moles/Vol] 22.0 mmol/L Normal 21.0-32.0 [facility] Comment on above: Order Comment: 1 Performed By: #### L 500.4100, L501.9520, L506.1001, L501.0100, L503.0106, L506.0400 #### [facility] [address] [place], [place], [address] Creatinine [Mass/Vol] 0.81 mg/dL Normal 0.55-1.02 [facility] Comment on above: Order Comment: 1 Result Comment: The validity of the calculated GFR GFRAA in patients over 70 years has not been determined. Clinical correlation is essential. Performed By: #### L 500.4100, L501.9520, L506.1001, L501.0100, L503.0106, L506.0400 #### [facility] [address] [place], [place], [address] EST GFR - AA 105 mL/min Normal >60 [facility] Comment on above: Order Comment: 1 Result Comment: Afri can [place] GFR Calc Performed By: #### L 500.4100, L501.9520, L506.1001, L501.0100, L503.0106, L506.0400 #### [facility] [address] [place], [place], [id number] GAP 8 Normal 5-15 [facility] [facility] Comment on above: Order Comment: 1 Performed By: #### L 500.4100, L501.9520, L506.1001, L501.0100, L503.0106, L506.0400 #### [facility] [address] [place], [address] GFR/1.73 sq M.predicted among non-blacks MDRD (S/P/Bld) [Vol rate/Area] 87 mL/min/{1.73_m2} Normal >60 [facility] Comment on above: Order Comment: 1 Result Comment: Non- GFR Calc Performed By: #### L 500.4100, L501.9520, L506.1001, L501.0100, L503.0106, L506.0400 #### [facility] [address] [place], [address] Globulin (S) [Mass/Vol] 3.3 g/dL Normal 2.2-4.2 [facility] Comment on above: Order Comment: 1 Performed By: #### L 500.4100, L501.9520, L506.1001, L501.0100, L503.0106, L506.0400 #### [facility] [address] [place], [address] Glucose [Mass/Vol] 103 mg/dL Normal 74-106 [facility] Comment on above: Order Comment: 1 Result Comment: Fast ing Glucose result from 100 to 125 mg/dL suggests IMPAIRED HOMEOSTASIS per A.D.A. criteria. Performed By: #### L 500.4100, L501.9520, L506.1001, L501.0100, L503.0106, L506.0400 #### [facility] [address] [place], [address] Potassium [Moles/Vol] 4.1 mmol/L Normal 3.5-5.1 [facility] Comment on above: Order Comment: 1 Performed By: #### L 500.4100, L501.9520, L506.1001, L501.0100, L503.0106, L506.0400 #### [facility] [address] [place], [address] Sodium [Moles/Vol] 139 mmol/L Normal 136-145 [facility] Comment on above: Order Comment: 1 Performed By: #### L 500.4100, L501.9520, L506.1001, L501.0100, L503.0106, L506.0400 #### [facility] [address] [place], [address] T PROT 7.2 g/dL Normal 6.4-8.2 [facility] Comment on above: Order Comment: 1 Performed By: #### L 500.4100, L501.9520, L506.1001, L501.0100, L503.0106, L506.0400 #### [facility] [address], [address] Urea nitrogen [Mass/Vol] 10 mg/dL Normal 7-18 [facility] Comment on above: Order Comment: 1 Performed By: #### L 500.4100, L501.9520, L506.1001, L501.0100, L503.0106, L506.0400 #### [facility] [address] [place], [address] Erythrocyte Sed Rateon 03-23 SED RATE 1 mm/hr Normal 0-30 [facility] Comment on above: Performed By: #### L 500.4100, L501.9520, L506.1001, L501.0100, L503.0106, L506.0400 #### [facility] [address] [place], [address] Free T3on 03-23-2024 Free T3 [Mass/Vol] 3.2 pg/mL Normal 2.18-3.98 [facility] Comment on above: Order Comment: 1 Performed By: #### L 500.4100, L501.9520, L506.1001, L501.0100, L503.0106, L506.0400 #### [facility] [address] [place], [address] LDHon 03-23-2024 LDH 169 U/L Normal 84-246 [facility] Comment on above: Order Comment: 1 Performed By: #### L 500.4100, L501.9520, L506.1001, L501.0100, L503.0106, L506.0400 #### [facility] [address] [place], [address] T4 Free Directon 03-23-2024 T4 FREE DIRECT 1.16 ng/dL Normal 0.76-1.46 [facility] Comment on above: Order Comment: 1 Performed By: #### L 500.4100, L501.9520, L506.1001, L501.0100, L503.0106, L506.0400 #### [facility] [address] [place], [address] Thyroid Stim Hormone (TSH)on 03-23-2024 TSH 1.220 uIU/mL Normal 0.358-3.740 [facility] Comment on above: Order Comment: 1 Performed By: #### L 500.4100, L501.9520, L506.1001, L501.0100, L503.0106, L506.0400 #### [facility] [address] [place], [place], [address] Gastroenterology Visit Repor ton 03-22-2024 Gastroenterology Visit Report [facility] [address] [place] [address] OFFICE VISIT Date of Service: 03/22/24 MR#: [id number] Acct: [id number] Name: STEFANIA NICOLE Rep #: [id number] : 1990 Provider: NEELAM morrison Age/Sex: 33/F Location: [facility] Status: Signed Intake Intake Visit Reasons: Abdominal pain Chief Complaint: IBS Accompanied by: Self Is patient in pain?: No Allergies No Known Allergies Allergy (Verified 03/22/24 15:03) Medications ???Medication ???Instructions ???Recorded ???Confirmed ???Type norethindrone 1 mg-ethinyl 1 tab PO DAILY 03/05/24 03/18/24 History estradiol 10 mcg (24)-iron 10 mcg(2) tablet (Lo Loestrin Fe) Lactobacillus acidophilus 10 10,000 mmu cells PO BID 1 week #14 03/22/24 03/22/24 Rx billion cell capsule caps pantoprazole 20 mg tablet,delayed 20 mg PO BID #60 tabs 03/22/24 03/22/24 Rx release rifaximin 550 mg tablet 550 mg PO TID IBS-D 2 weeks #42 03/22/24 03/22/24 Rx tabs PFSH Medical History No active medical problems Surgical History No significant past surgical history Social History Smoking Status: Never smoker alcohol intake: never substance use type: does not use HPI HPI Chief Complaint: IBS Details: STEFANIA NICOLE, is a 33 F who presents to the office today for establishment with [facility] for complaints of mixed diarrhea and constipation, heartburn, abdominal pain, bloating and early satiety. States heartburn is daily, mid-epigastric; complaints of bloating and lower abdominal pain that are daily regardless of food types but can be really bad after fast or fatty food and the pain completely goes away after a BM. Reports sporadic red, slightly raised rashes appearing on upper arms, with no consistency of location. Denies vision changes, joint pain or swelling. Reports frequent headaches, excessive flatus, early satiety, and bruises easily. Denies blood in stool. Reports nausea related to abdominal pain and bloating only, no vomiting. ROS Const Constitutional: Positive for headache(s); No anorexia, body ache, chills, excessive sweating, fatigue, fever(s), frequent falls, decreased energy, malaise, night sweats, snoring, weakness, weight change, sleep problems, abnormal sleep pattern, change in appetite or other Eyes Eyes: No change in vision ENT ENT: Positive for headache(s); No abnormal hearing or difficulty swallowing Resp Respiratory: No cough or snoring Cardio Cardiology: No excessive sweating Gastro GI: Positive for abdominal pain, bloating, change in bowel habits, change in stool character, constipation, cramping, diarrhea, heartburn, feeling full early, excessive flatus, loose stools and nausea/dyspepsia; No belching, coffee ground emesis, difficulty swallowing, incontinent of stools, Vomiting blood/hematemesis, Blood in stool, Black,tarry stools, pain with swallowing, vomiting or other Genitourinary-Female: No difficulty urinating Musc Musculoskeletal: No joint pain Skin Skin: No yellowing of the eye or itchy eyes Neuro Neurology: Positive for headache(s); No abnormal hearing, weakness or frequent falls Psych Psychiatric: No abnormal sleep pattern, No anxiety, No change in appetite and No depression Endo Endocrine: No change in body appearance, excessive sweating, fatigue or weight change Aller/Imm Allergy/Immunologic: No food intolerance or itchy eyes Talha/Lymp Hematologic/Lymphatic: Positive for easy bruising; No easy bleeding Exam Const General: cooperative and healthy appearing Nutritional Appearance: average body habitus Orientation: alert and awake HENMT Head: normal to inspection Ears: hearing grossly normal bilaterally Nose: external nose normal Face and sinus: normal facial exam and face symmetric Eyes General: appearance normal, both eyes and all related structures Neck Neck: normal visual inspection and full ROM Neck mass: No Chest Chest palpation inspection: normal inspection of the chest Resp Effort Inspection: normal respiratory effort, able to speak in complete sentences and symmetric chest movement GI Inspection: normal to inspection Skin General: no rashes or lesions noted Neuro General: patient alert, patient awake and patient oriented x3 Cognition: normal cognition Speech: speech normal Gait: normal gait Extrem General: normal to inspection and full ROM Psych Appearance: well kempt Mental Status: mental status grossly normal Mood: congruent mood Affect: normal affect Speech and Movement: speech and movement normal Attitude: cooperative Thought Process: normal Judgment: judgment good Assessment and Plan A (more content not included)... Normal [facility] Office Visit Reporton 2023 Office Visit Report [facility] [address] [place] [address] OFFICE VISIT Date of Service: 03/18/24 MR#: [id number] Acct: [id number] Patient: STEFANIA NICOLE Rep #: [id number] : 1990 Provider: SARAH Cha Age/Sex: 33/F Location: [facility] Status: Signed Employer Purchased Covid Test Note: Patient here today for Covid Testing, requested by their Employer. Assessment and Plan Assessment and Plan Orders: Orders POC Cepheid Covid, FluAB, RSV Today 03/18/24 1042 Date Taz Jacob PA PA Cosigner Signature: Date (if applicable) CC: Normal [facility]gent Care Visit Reporton 0 03-18-2024 Urgent Care Visit Report [facility] [address], [address] [place] [address] OFFICE VISIT Date of Service: 03/18/24 MR#: [id number] Acct: [id number] Name: STEFANIA NICOLE Rep #: [id number] : 1990 Provider: SARAH Cha Age/Sex: 33/F Location: [facility] Status: Signed Intake Intake Visit Reasons: SORE THROAT, HEAD ACHE Chief Complaint: RYAN, congestion, ST Allergies No Known Allergies Allergy (Verified 03/18/24 10:34) PFSH Medical History (Updated 03/18/24 @ 11:18 by SARAH Pérez) No active medical problems Surgical History (Updated 03/18/24 @ 10:34 by Keyonna Garcia) No significant past surgical history Social History (Updated 03/18/24 @ 10:34 by Keyonna Garcia) Smoking Status: Never smoker alcohol intake: never substance use type: does not use HPI HPI Chief Complaint: RYAN, congestion, ST Details: STEFANIA NICOLE, is a 33 F who presents to the office today for complaint of headache, congestion and sore throat for the past 2 days. Patient states when to make sure she does not have COVID as the last time that she had COVID she had a sore throat. Patient denies fever, chills, sweats. No nausea, vomiting and diarrhea. No hemoptysis, shortness of breath or difficulty breathing. No loss of taste or smell. No other associated symptoms or alleviating/aggravating factors. ROS Const Constitutional: No other (6 system ROS completed with pertinent findings in the HPI otherwise normal.) Exam Const General: cooperative and well developed HENKY Head: normal to inspection and atraumatic Ears: hearing grossly normal bilaterally Nose: nasal discharge clear Face and sinus: normal facial exam Mouth: oral mucosae normal Throat: abnormal tonsil bilaterally hypertrophy 1+ Resp Effort Inspection: normal respiratory effort and no audible wheezes Auscultation: Bilateral: Clear to Auscultation Cardio Rate: regular rate Rhythm: regular rhythm Neuro General: patient alert Psych Appearance: grossly normal Mental Status: mental status grossly normal Coding Level of Care Code Off vis,new,level 3 Diagnoses Acute upper respiratory infection J06.9 Assessment and Plan Assessment and Plan (1) Acute upper respiratory infection: Status: Acute Plan Patient tested negative for COVID, influenza and RSV in the office today. Encouraged to get plenty of rest, drink lots of clear liquids, and use Tylenol or Ibuprofen (unless contraindicated) for fever and comfort. Patient also educated on other symptomatic management techniques. To be seen in 7-10 days if no improvement; sooner if worsening of symptoms. Patient advised of potential red flags and when appropriate to report to the ED. Patient verbalized understanding and agreement with all the above. 03/18/24 1118 Date Taz Neves Signature: Date (if applicable) CC: Normal [facility] CBC, Employeeon 03-05-2024 Absolute Lymph 2.19 X10 3/uL Normal 0.83-4.51 [facility] Comment on above: Performed By: #### L 700.8000 #### [facility] [address] [place], [place], [id number] Absolute Neut 4.2 X10 3/uL Normal 2.0-7.7 [facility] Comment on above: Performed By: #### L 700.8000 #### [facility] [address] [place], [address] Basophils/100 WBC (Bld) 0.7 % Normal 0-1 [facility] Comment on above: Performed By: #### L 700.8000 #### [facility] [address] [place], [address] Eosinophils/100 WBC (Bld) 1.0 % Normal 0-5 [facility] Comment on above: Performed By: #### L 700.8000 #### [facility] [address] [place], [address] Erythrocyte distribution width (RBC) [Ratio] 12.0 % Normal 11.6-14.6 [facility] Comment on above: Performed By: #### L 700.8000 #### [facility] [address] [place], [address] Hematocrit (Bld) [Volume fraction] 38.9 % Normal 37-47 [facility] Comment on above: Performed By: #### L 700.8000 #### [facility] [address] [place], [address] Hemoglobin (Bld) [Mass/Vol] 13.3 g/dL Normal 12.0-15.0 [facility] Comment on above: Performed By: #### L 700.8000 #### [facility] [address] [place], [address] Lymphocytes/100 WBC (Bld) 31.0 % Normal 19-41 [facility] Comment on above: Performed By: #### L 700.8000 #### [facility] [address] [place], [address] MCH (RBC) [Entitic mass] 28.4 pg Normal 27.0-32.0 [facility] Comment on above: Performed By: #### L 700.8000 #### [facility] [address] [place], [address] MCHC (RBC) [Mass/Vol] 34.2 g/dL Normal 32-36 [facility] Comment on above: Performed By: #### L 700.8000 #### [facility] [address] [place], [address] MCV (RBC) [Entitic vol] 83.1 fL Normal 81-99 [facility] Comment on above: Performed By: #### L 700.8000 #### [facility] [address] [place], [address] Monocytes/100 WBC (Bld) 7.2 % Normal 0-10 [facility] Comment on above: Performed By: #### L 700.8000 #### [facility] [address] [place], [address] Neutrophils/100 WBC (Bld) 60.0 % Normal 47-70 [facility] Comment on above: Performed By: #### L 700.8000 #### [facility] [address] [place], [address] NRBC # 0.00 10 3/uL Normal 0-5 [facility] Comment on above: Performed By: #### L 700.8000 #### [facility] [address] [place], [address] Nucleated RBC (Bld) [#/Vol] 0 10*3/uL Normal 0-5 [facility] Comment on above: Performed By: #### L 700.8000 #### [facility] [address] [place], [address] Platelet mean volume (Bld) [Entitic vol] 9.1 fL Normal 6.2-12.0 [facility] Comment on above: Performed By: #### L 700.8000 #### [facility] [address] [place], [address] Platelets (Bld) [#/Vol] 318 10*3/uL Normal 150-450 [facility] Comment on above: Performed By: #### L 700.8000 #### [facility] [address] [place], [address] RBC (Bld) [#/Vol] 4.68 10*6/uL Normal 4.2-5.4 [facility] Comment on above: Performed By: #### L 700.8000 #### [facility] [address] [place], [address] RDW SD 36.2 fl Normal 35.1-43.9 [facility] Comment on above: Performed By: #### L 700.8000 #### [facility] [address] [place], [address] WBC (Bld) [#/Vol] 7.1 10*3/uL Normal 4.4-11.0 [facility] Comment on above: Performed By: #### L 700.8000 #### [facility] [address] [place], [address] Employee Profileon 4 Albumin [Mass/Vol] 4.1 g/dL Normal 3.2-5.0 [facility] Comment on above: Performed By: #### L 700.8000 #### [facility] [address] [place], [address] Albumin/Globulin [Mass ratio] 1.3 {ratio} Normal 0.9-2.4 [facility] Comment on above: Performed By: #### L 700.8000 #### [facility] [address] [place], [address] ALK P 55 U/L Normal 45-117 [facility] Comment on above: Performed By: #### L 700.8000 #### [facility] [address] [place], [address] ALT [Catalytic activity/Vol] 39 U/L Normal 13-56 [facility] Comment on above: Performed By: #### L 700.8000 #### [facility] [address] [place], [address] AST [Catalytic activity/Vol] 20 U/L Normal 15-37 [facility] Comment on above: Performed By: #### L 700.8000 #### [facility] [address] [place], [address] Bilirubin [Mass/Vol] 0.80 mg/dL Normal 0.20-1.00 [facility] Comment on above: Result Comment: For patients on eltrombopag therapy, use of Dimension [place] TBIL is not recommended. Performed By: #### L 700.8000 #### [facility] [address] [place], [address] Bilirubin.direct [Mass/Vol] 0.20 mg/dL Normal 0.00-0.30 [facility] Comment on above: Performed By: #### L 700.8000 #### [facility] [address] [place], [address] BUN/CRE 22.0 RATIO High 10-20 [facility] Comment on above: Performed By: #### L 700.8000 #### [facility] [address] [place], [address] CA,Total 9.2 mg/dL Normal 8.5-10.1 [facility] Comment on above: Performed By: #### L 700.8000 #### [facility] [address] [place], [address] Chloride [Moles/Vol] 105 mmol/L Normal 98-107 [facility] Comment on above: Performed By: #### L 700.8000 #### [facility] [address] [place], [address] CHOL:HDL 2.70 Normal [facility] Comment on above: Performed By: #### L 700.8000 #### [facility] [address] [place], [address] Cholesterol [Mass/Vol] 183 mg/dL Normal 200 [facility] Comment on above: Result Comment: <200 mg/dL Desirable 200-240 mg/dL Borderline >240 mg/dL High Risk Performed By: #### L 700.8000 #### [facility] [address] [place], [address] Cholesterol in HDL [Mass/Vol] 68 mg/dL Normal [facility] Comment on above: Result Comment: The drugs N-Acetylcysteine and Metamizole may falsely depress this assay. Reference Range HDL <40 mg/dL Low HDL Cholesterol HDL >or= 60 mg/dL High HDL Cholesterol Performed By: #### L 700.8000 #### [facility] [address] [place], [address] Cholesterol in LDL [Mass/Vol] 99 mg/dL Normal 0-130 [facility] Comment on above: Performed By: #### L 700.8000 #### [facility] [address] [place], [address] Cholesterol in VLDL [Mass/Vol] 16 mg/dL Normal 5-40 [facility] Comment on above: Performed By: #### L 700.8000 #### [facility] [address] [place], [address] CO2 [Moles/Vol] 25.0 mmol/L Normal 21.0-32.0 [facility] Comment on above: Performed By: #### L 700.8000 #### [facility] [address] [place], [address] Creatinine [Mass/Vol] 0.68 mg/dL Normal 0.55-1.02 [facility] Comment on above: Result Comment: The validity of the calculated GFR GFRAA in patients over 70 years has not been determined. Clinical correlation is essential. Performed By: #### L 700.8000 #### [facility] [address] [place], [address] EST GFR - AA 129 mL/min Normal >60 [facility] Comment on above: Result Comment: Afri can Turk[place] GFR Calc Performed By: #### L 700.8000 #### [facility] [address] [place], [address] GAP 8 Normal 5-15 [facility] Comment on above: Performed By: #### L 700.8000 #### [facility] [address] [place], [address] GFR/1.73 sq M.predicted among non-blacks MDRD (S/P/Bld) [Vol rate/Area] 107 mL/min/{1.73_m2} Normal >60 [facility] Comment on above: Result Comment: Non- GFR Calc Performed By: #### L 700.8000 #### [facility] [address] [place], [address] Globulin (S) [Mass/Vol] 3.2 g/dL Normal 2.2-4.2 [facility] Comment on above: Performed By: #### L 700.8000 #### [facility] [address] [place], [address] Glucose [Mass/Vol] 90 mg/dL Normal 74-106 [facility] Comment on above: Performed By: #### L 700.8000 #### [facility] [address] [place], [address] LDH 156 U/L Normal 84-246 [facility] Comment on above: Performed By: #### L 700.8000 #### [facility] [address] [place], [address] Phosphate [Mass/Vol] 3.0 mg/dL Normal 2.5-4.9 [facility] Comment on above: Performed By: #### L 700.8000 #### [facility] [address] [place], [address] Potassium [Moles/Vol] 4.0 mmol/L Normal 3.5-5.1 [facility] Comment on above: Performed By: #### L 700.8000 #### [facility] [address] [place], [address] Sodium [Moles/Vol] 138 mmol/L Normal 136-145 [facility] Comment on above: Performed By: #### L 700.8000 #### [facility] [address] [place], [address] T PROT 7.3 g/dL Normal 6.4-8.2 [facility] Comment on above: Performed By: #### L 700.8000 #### [facility] [address] [place], [address] Triglyceride [Mass/Vol] 82 mg/dL Normal [facility] Comment on above: Result Comment: The drugs N-Acetylcysteine and Metamizole may falsely depress this assay. Serum Triglycerides Reference Interval Normal <150 mg/dL Borderline high 150 - 199 mg/dL High 200 - 499 mg/dL Very High > or = 500 mg/dL Performed By: #### L 700.8000 #### [facility] [address] [place], [address] Urea nitrogen [Mass/Vol] 15 mg/dL Normal 7-18 [facility] Comment on above: Performed By: #### L 700.8000 #### [facility] [address] [place], [address] URIC 4.4 mg/dL Normal 2.6-6.0 [facility] Comment on above: Result Comment: The drugs N-Acetylcysteine and Metamizole may falsely depress this assay. Performed By: #### L 700.8000 #### [facility] [address] [place], [address] Urinalysis, Employeeon 03-05 BILIRUBIN URINE Negative Normal Negative [facility] Comment on above: Performed By: #### L 700.8000 #### [facility] [address] [place], [address] Clarity (U) Clear Normal Clear [facility] Comment on above: Performed By: #### L 700.8000 #### [facility] [address] [place], [address] Color (U) Yellow Normal Yellow [facility] Comment on above: Performed By: #### L 700.8000 #### [facility] [address] [place], [address] GLUCOSE, UR Normal Normal Normal [facility] Comment on above: Performed By: #### L 700.8000 #### [facility] [address] [place], [address] KETONE UR 15 mg/dl Abnormal Negative [facility] Comment on above: Performed By: #### L 700.8000 #### [facility] [address] [place], [address] LEUK ESTERASE 100 /ul Abnormal Negative [facility] Comment on above: Performed By: #### L 700.8000 #### [facility] [address] [place], [address] Nitrite Ql (U) Negative Normal Negative [facility] Comment on above: Performed By: #### L 700.8000 #### [facility] [address] [place], [address] OCCULT BLOOD-UR 50 /ul Abnormal Negative [facility] Comment on above: Performed By: #### L 700.8000 #### [facility] [address] [place], [address] pH UR 5.0 Normal 5.0 - 8.0 [facility] Comment on above: Performed By: #### L 700.8000 #### [facility] [address] [place], [address] PROT DIPSTX 15 mg/dl Abnormal Negative [facility] Comment on above: Performed By: #### L 700.8000 #### [facility] [address] [place], [address] SP.GR. DIPSTX 1.020 Normal 1.002-1.030 [facility] Comment on above: Performed By: #### L 700.8000 #### [facility] [address] [place], [address] UROBILI 1 mg/dl Abnormal Normal [facility] Comment on above: Performed By: #### L 700.8000 #### [facility] [address] [place], [address] Office Visit Reporton 2023 Office Visit Report [facility] [address] [place] [address] OFFICE VISIT Date of Service: 02/17/24 MR#: [id number] Acct: [id number] Patient: STEFANIA NICOLE Rep #: [id number] : 1990 Provider: SARAH Avila Age/Sex: 33/F Location: [facility] Status: Signed Employer Purchased Covid Test Note: Patient here today for Covid Testing, requested by their Employer. Assessment and Plan Assessment and Plan Orders: Orders POC Candy Covid FLUAB PCR Today R05.9 - Cough, unspecified 02/17/24 1400 Date Paul SMITH Cosigner Signature: Date (if applicable) CC: Normal [facility] Hepatitis B Surface Antigeno n 09-19-2023 HBV surface Ag Ql (S) Negative Negative [facility] Hepatitis B Surface antibody on 09-19-2023 HBV surface Ab Ql (S) Negative Negative [facility] Mumps Antibody, IgGon 2023 Interpretation and review of laboratory results Abnormal [facility] MuV IgG Ql (S) Positive Abnormal Negative [facility] Assay performed usin g Diasorin CLIA methodology. [facility] No Panel Informationon 09-18 Interpretation and review of laboratory results Normal [facility] Test performed using Nilsa BERTO immunoassay system [facility] Rubeola Antibody, IgGon MeV IgG Ql (S) Immune [facility] Assay performed usin g Diasorin CLIA methodology. [facility] Vaginitis DNA ProbesOrdered By: Radha Crowe on 09-19-2023 Ken sp DNA Probe+sig amp Ql (Vag fld) Negative Negative [facility] G. vaginalis DNA Probe+sig amp Ql (Vag fld) Negative Negative [facility] Interpretation and review of laboratory results Normal [facility] T. vaginalis DNA Probe+sig amp Ql (Vag fld) Refer to Trichomonas Amplified RNA Result Negative [facility] Cervical AND or Vaginal cyto logy studyon 06-17-2023 Cytology Cervical or vaginal smear or scraping study Pathology report.total SEE COMMENT Gynecologic Cytology Case: [id number] Authorizing Provider: Nikki Stevens MD Collected: 06/17/2023 1508 Ordering Location: [facility] Received: 06/17/2023 1508 Office Building First [...] Slide(s) initially screened by LO Rodriguez at [facility] [address] [facility] [id number] By the signature on this report, the individual or group listed as making the Final Interpretation/Diagnosis certifies that they have reviewed this case. This specimen has been analyzed by the Mobile Game DayPrep Imaging System ([employer] an automated imaging and review system, which assists the laboratory in evaluating cells on ThinPrep Pap tests. Following automated imaging, selected trotter from every slide were reviewed by a airplane technician and/or pathologist. Cervical cytology is a screening [...] LAB AP HPV GENOTYPE QUESTION Yes Normal [facility] HPV 16 and 18 and 31+33+35+3 9+45+51+52+56+58+59+66+68 DNA Pnl (Cvx)on 06-17-2023 HPV 16 DNA JIM+probe Ql (Unsp spec) Negative Normal Negative [facility] Comment on above: Order Comment: [...] verified by the Molecular Diagnostic Laboratory at [facility]. The lab is certified under the Clinical Laboratory Amendments of 1988 (CLIA 88) as qualified to perform high complexity clinical laboratory testing. PERFORMING LAB LOCATIONS [facility]: [address] [place] [address] [place] [address] Performed By: #### 7 1432-9 #### DL Horvath ([id number]) [facility] ([facility]) [address] [place] [address] HPV 18 DNA JIM+probe Ql (Unsp spec) Negative Normal Negative [facility] Comment on above: Order Comment: [...] verified by the [facility] Diagnostic Laboratory at [facility]. The lab is certified under the Clinical Laboratory Amendments of 1988 (CLIA 88) as qualified to perform high complexity clinical laboratory testing. PERFORMING LAB LOCATIONS [facility]: [address] [place] [address].[place] [address] Performed By: #### 7 1432-9 #### DL Horvath ([id number]) [facility] ([facility]) [address] [place] [address] HPV 31+33+35+39+45+51+52+ 56+58+59+66+68 DNA JIM+probe Ql (Genital specimen) Negative Normal Negative [facility] Comment on above: Order Comment: [...] verified by the [facility] Diagnostic Laboratory at [facility]. The lab is certified under the Clinical Laboratory Amendments of 1988 (CLIA 88) as qualified to perform high complexity clinical laboratory testing. PERFORMING LAB LOCATIONS [facility]: [address] [place] [address] Performed By: #### 7 1432-9 #### DL Horvath ([id number]) [facility] ([facility]) [address] [place] [address] Human papilloma virus high-risk genotypes panel Negative Normal Negative [facility] Comment on above: Order Comment: [...] verified by the [facility] Diagnostic Laboratory at [facility]. The lab is certified under the Clinical Laboratory Amendments of 1988 (CLIA 88) as qualified to perform high complexity clinical laboratory testing. 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 Signatures Electronically signed by : Nikki Henry APRN-[facility]; Dec 19 2022 1:55PM EST (Author) Normal [...] 19.5 MCG/DAY IUD Vitals Vital Signs Recorded: [id number] 03:26PM Heart Rate84 Exflgjgt620 Ffbshupsu16 Height5 ft 3 in Roxdvt475 lb BMI Fqlcewrhij84.33 kg/m2 BSA Calculated1.68 Tobacco Useb) No Falls [...] jackknife position with the assistance of my medical records receptionist, Bernarda. This revealed minimally enlarged internal hemorrhoids. These did not appear friable. There was no bleeding on contact with the scope. Musculoskeletal: Moves all extremities, warm, no edema Skin: warm and dry Signatures Electronically signed by : Michele Thornton MD; Nov 28 2022 7:50AM EST (Author) Normal [facility] Tobacco Screening.on 023 Fall risk assessment a) No falls within the last year [facility] Work Phone: Tobacco use status [facility] b) No [facility] Work Phone: Initial Visit (Orthopaedic S urgery)on 03-11-2022 Initial Visit (Orthopaedic Surgery) Diagnoses/Problems Assessed [...] 19.5 MCG/DAY IUD Vitals Vital Signs Recorded: 65Byr6231 02:24PM Dehdpzotgff28.8 F Height5 ft 2 in Stfqsz342 lb BMI Uluctbhltw23.79 kg/m2 BSA Calculated1.65 Tobacco Useb) No Falls [...] dislocations Signatures Electronically signed by : Jackie Barriga PA-C; Mar 11 2022 2:45PM EST (Author) Normal [facility]iology[facility] 03-11-2022 XR Wrist - bilateral 3 Views Please click on the link to view the study images Normal [facility] 300 Work Phone: [phone] XR Wrist - bilateral 3 Views Normal [facility] 300 Work Phone: [phone] Tobacco Screening.on 022 Fall risk assessment b) One or more fall s in the last year [facility] 300 Work Phone: [phone] Tobacco use status [facility] b) No [facility] 300 Work Phone: [phone] WRIST COMPLT MIN 3 VIEWSon 0 03-11-2022 WRIST COMPLT MIN 3 VIEWS Patient Name: STEFANIA SCHAFER STUDY: Right wrist 3 views. INDICATION: right wrist pain M25.531: Right wrist pain. COMPARISON: None. ACCESSION NUMBER(S): [id number] ORDERING CLINICIAN: JACKIE BARRIGA FINDINGS: No acute fracture or malalignment. No significant degenerative changes. Soft tissues are within normal limits. IMPRESSION: 1. Unremarkable right wrist radiographs. Electronically signed by: LARA DOBBINS MD Normal [facility] metabolic 2000 panelon 07-24-2021 Albumin [Mass/Vol] 4.5 g/dL 3.2 - 5.2 g/dL [facility] ALP [Catalytic activity/Vol] 104 U/L 40 - 140 U/L [facility] ALT [Catalytic activity/Vol] 52 U/L 14 - 65 U/L [facility] Anion gap [Moles/Vol] 11 mmol/L 10 - 2 0 mmol/L [facility] AST [Catalytic activity/Vol] 16 U/L 0 - 45 U/L [facility] Bilirubin [Mass/Vol] 0.4 mg/dL 0.0 - 1 .3 mg/dL [facility] Calcium [Mass/Vol] 9.5 mg/dL 8.4 - 10. 2 mg/dL [facility] Chloride [Moles/Vol] 106 mmol/L 98 - 10 8 mmol/L [facility] Creatinine [Mass/Vol] 0.62 mg/dL 0.40 - 1.10 [facility] GFR/1.73 sq M.predicted CKD-EPI (S/P/Bld) [Vol rate/Area] 123 >=60 mL/min/1.73 m2 [facility] Glucose [Mass/Vol] 91 mg/dL 65 - 99 mg/dL [facility] HCO3 [Moles/Vol] 27 mmol/L 21 - 32 mmol/L [facility] Interpretation and review of laboratory results Abnormal [facility] Potassium [Moles/Vol] 4.5 mmol/L 3.5 - 5.1 mmol/L [facility] Protein [Mass/Vol] 7.7 g/dL 6.0 - 8.0 g/dL [facility] Sodium [Moles/Vol] 139 mmol/L 135 - 145 mmol/L [facility] Urea nitrogen [Mass/Vol] 15 mg/dL 8 - 25 mg/dL [facility] Urea nitrogen/Creatinine [Mass ratio] 24.2 mg/mg High [facility] The eGFR should be u sed for monitoring renal function only and not for medication dosing. [facility] No Panel Informationon 07-24 [facility] TSH DL <= 0.005 mIU/L Qnon 0 07-24-2021 Interpretation and review of laboratory results Normal [facility] TSH Qn 1.43 m[IU]/L [facility] LMPon 12-15-2020 Last menstrual period start date LUCYEMERALD IS[place] [facility] [address] [employer] Work Phone: [phone] GC + Chlamydia By Amplified Detectionon 11-28-2020 C. trachomatis rRNA JIM+probe Ql (Unsp spec) Negative Negative [facility] [address] [employer] Work Phone: [phone] N. gonorrhoeae rRNA JIM+probe Ql (Unsp spec) Negative Negative [facility] [address] [employer] Work Phone: [phone] Comment on above: SOURCE: Urine IO HCG, Urine Test on 11-28-2020 HCG ( test) Ql (U) Negative Normal [facility] [address] [employer] Work Phone: [phone] Cult, Urineon 03-29-2020 Bacteria identified Cx Nom (U) PATIENT: STEFANIA SCHAFER LOCATION: [facility]#: [id number] : 89 AGE: SEX: F ORDERED BY: CAROLE MANCSUO SOURCE: URINE COLLECTED: 03/29/20 15:41 ANTIBIOTICS AT [facility].: RECEIVED : 03/30/20 02:47 SITE: Clean Catch/Voided R E S U L T S URINE CULTURE,BACTERIAL FINAL 03/30/20 20:25 NO SIGNIFICANT GROWTH. [facility] [address] Work Phone: GC + Chlamydia By Amplified Detectionon 03-29-2020 C. trachomatis rRNA JIM+probe Ql (Unsp spec) Negative Negative [facility] [address] Work Phone: [phone] N. gonorrhoeae rRNA JIM+probe Ql (Unsp spec) Negative Negative [facility] [address] Work Phone: Comment on above: SOURCE: Urine Hepatitis B Surface Antigeno n 03-29-2020 Hepatitis B Surface Antigen Non-Reactive See Below [facility] [address] Work Phone: Comment on above: SOURCE: Reference Ra nge: NONREACTIVE Biotin interference may cause falsely decreased results. Patients taking a Biotin dose of up to 5 mg/day should refrain from taking Biotin for 24 hours before sample collection. Providers may contact their local laboratory for further information. SOURCE: Reference Ra nge: NONREACTIVE HIV Ag/Ab screen is performed using the [employer] HIV Ag/Ab Combo assay which detects the [...] bankon ABO group Nom (Bld) [facility] [address] Work Phone: Comment on above: NA Blood group antibody screen Ql Negative [facility] [address] Work Phone: Comment on above: NA Rh immune globulin screen (Bld) [Interp] Positive [facility] [address] [employer] Work Phone: [phone] Comment on above: NA No Panel Informationon 03-29 96.4 % [facility] [address] Work Phone: [phone] 0.4 % [facility] [address] Work Phone: [phone] 3.2 % [facility] [address] Work Phone: [phone] Comment on above: HGB A2 values may be falsely elevated in the presence of HGB S. SEE COMMENT [facility] [address] [employer] Work Phone: [phone] Comment on above: Normal Path Review-HGB Identificati onon 03-29-2020 Path Review-HGB Identification EVANS [facility] [address] [employer] Work Phone: [phone] Comment on above: By her/his signature above, the Pathologist listed as making the final interpretation certifies that she/he has personally reviewed this case. Rubella IgG Antibodyon 03-29 Rubella virus IgG IA Ql Positive [facility] [address] [employer] Work Phone: [phone] Comment on above: SOURCE: INTERPRETATI VE COMMENT [...] IgG+IgM IA Ql (S) Non-Reactive See Below [facility] [address] [employer] Work Phone: Comment on above: SOURCE: Reference Ra nge: NONREACTIVENo significant level of Treponema pallidum antibody detected. Repeat testing in 2 to 4 weeks may be considered if early infection or incubating syphilis infection is suspected. Comprehensive Metabolic Pane saul 05-17-2019 Albumin [Mass/Vol] 4.3 g/dL 3.2 - 5.2 g/dL [facility] ALP [Catalytic activity/Vol] 75 U/L 40 - 140 U/L [facility] ALT [Catalytic activity/Vol] 27 U/L 14 - 65 U/L [facility] Anion gap [Moles/Vol] 9 mmol/L Low 10 - 2 0 mmol/L [facility] AST [Catalytic activity/Vol] 13 U/L 0 - 45 U/L [facility] Bilirubin [Mass/Vol] 0.4 mg/dL 0 - 1.3 mg/dL [facility] Calcium [Mass/Vol] 8.7 mg/dL 8.4 - 10. 2 mg/dL [facility] Chloride [Moles/Vol] 107 mmol/L 98 - 10 8 mmol/L [facility] Creatinine [Mass/Vol] 0.58 mg/dL 0.4 - 1.1 mg/dL [facility] GFR/1.73 sq M predicted among non-blacks MDRD (S/P/Bld) [Vol rate/Area] The eGFR should be used for monitoring renal function only and not for medication dosing. [facility] GFR/1.73 sq M.predicted CKD-EPI (S/P/Bld) [Vol rate/Area] 128 >=60 mL/min/1.73 m2 [facility] Glucose [Mass/Vol] 86 mg/dL 65 - 99 mg/dL [facility] HCO3 [Moles/Vol] 29 mmol/L 21 - 32 mmol/L [facility] Interpretation and review of laboratory results Abnormal [facility] Potassium [Moles/Vol] 3.9 mmol/L 3.5 - 5.1 mmol/L [facility] Protein [Mass/Vol] 7.6 g/dL 6 - 8 g/dL [facility] Sodium [Moles/Vol] 141 mmol/L 135 - 145 mmol/L [facility] Urea nitrogen [Mass/Vol] 8 mg/dL 8 - 25 mg/dL [facility] Urea nitrogen/Creatinine [Mass ratio] 13.8 mg/mg [facility] Lipid Panelon 05-17-2019 Cholesterol [Mass/Vol] 150 mg/dL 100 - 199 mg/dL [facility] Comment on above: National Cholesterol Education Program Guidelines: Cholesterol Desirable: <200 mg/dL Borderline High: 200-239 mg/dL High: greater than or equal to 240 mg/dL Cholesterol in HDL [Mass/Vol] 61 mg/dL 40 - 59 [facility] Comment on above: National Cholesterol Education Program Guidelines: HDL Cholesterol Low: <40 mg/dL Near Optimal: 40-59 mg/dL High: greater than or equal to 60 mg/dL Cholesterol in LDL [Mass/Vol] 73 mg/dL 10 - 130 mg/dL [facility] Comment on above: National Cholesterol Education Program Guidelines: LDL Cholesterol Optimal: <100 mg/dL Near Optimal/above Optimal: 100-129 mg/dL Borderline High: 130-159 mg/dL High: 160-189 mg/dL Very High: greater than or equal to 190 mg/dL Cholesterol non HDL [Mass/Vol] 89 mg/dL [facility] Comment on above: National Cholesterol Education Program Guidelines: NON HDL Cholesterol Desirable: <130 mg/dL Borderline High: 130-159 mg/dL High: 160-189 mg/dL Very High: > or = 190 mg/dL Cholesterol.total/Cho lesterol in HDL [Mass ratio] 2.5 {ratio} ratio [facility] Comment on above: Female Cholesterol/H DL Ratio: Average risk: 4.4 1/2 average risk: 3.3 2 x average risk: 7.1 Triglyceride [Mass/Vol] 81 mg/dL 30 - 150 mg/dL [facility] Comment on above: National Cholesterol Education Program Guidelines: Triglyceride Normal: <150 mg/dL Borderline High: 150-199 mg/dL High: 200-499 mg/dL Very High: greater than or equal to 500 mg/dL TSH with Reflex Free T4on Interpretation and review of laboratory results Normal [facility] TSH Qn 1.10 m[IU]/L [facility] Placenta Pathology Request - NO EXAMon 01-13-2018 Placenta Pathology Request - NO EXAM Collected Normal [facility] Comment on above: Performed By: #### 2 [id number] ####JOELLE [address] [place] [address] Hematocriton 01-11-2018 Hematocrit (HCT) 35.1 % Low 36.0-48.0 [facility] Comment on above: Order Comment: first post- day Performed By: #### 2 [id number] ####JOELLE [address] [place] [address] Hemoglobinon 01-11-2018 Hemoglobin mass conc (Bld) 11.9 g/dL Low 12.0-16.0 [facility] Comment on above: Order Comment: first post- day Performed By: #### 2 [id number] ####JOELLE [address] [place] [address] Auto Diffon 01-09-2018 Basophils Auto #/vol (Bld) 0.0 E3/mcL Normal 0.0-0.2 [facility] Comment on above: Order Comment: Order Added by Discern Expert. Performed By: #### 2 192581 ####JOELLE [address] [place] [address] Basophils/100 WBC Auto (Bld) 0.2 % Normal 0.0-2.0 [facility] Comment on above: Order Comment: Order Added by Discern Expert. Performed By: #### 2 [id number] ####JOELLE [address] [place] [address] Eos Absolute 0.1 E3/mcL Normal 0.0-0.7 [facility] Comment on above: Order Comment: Order Added by Discern Expert. Performed By: #### 2 005451 ####JOELLE [address] [place] [address] Eosinophils/100 leukocytes 0.6 % Normal 0.0-11.0 [facility] Comment on above: Order Comment: Order Added by Discern Expert. Performed By: #### 2 222030 ####JOELLE [address] [place] [address] Lymphocytes 3.4 E3/mcL Normal 1.2-3.4 [facility] Comment on above: Order Comment: Order Added by Discern Expert. Performed By: #### 2 [id number] ####JOELLE [address]yrGdbe[address] [place] [address] Lymphocytes/100 leukocytes 23.2 % Normal 20.0-55.0 [facility] Comment on above: Order Comment: Order Added by Discern Expert. Performed By: #### 2 800084 ####JOELLE [address] [place] [address] Person Absolute 1.0 E3/mcL High 0.0-0.7 [facility] Comment on above: Order Comment: Order Added by Discern Expert. Performed By: #### 2 [id number] ####JOELLE [address] [place] [address] Monocytes/100 leukocytes 7.0 % Normal 0.0-10.0 [facility] Comment on above: Order Comment: Order Added by Discern Expert. Performed By: #### 2 692002 ####JOELLE [address] [place] [address] Neutro Absolute 10.3 E3/mcL High 1.4-6.5 [facility] Comment on above: Order Comment: Order Added by Discern Expert. Performed By: #### 2 [id number] ####JOELLE [address] [place] [address] Neutro Auto 69.0 % Normal 37.0-75.0 [facility] Comment on above: Order Comment: Order Added by Discern Expert. Performed By: #### 2 [id number] ####JOELLE [address] [place] [address] CBC w/ Auto Diffon 8 Erythrocyte distribution width Auto Ratio (RBC) 13.6 % Normal 11.5-14.5 [facility] Comment on above: Performed By: #### 2 [id number] ####JOELLE [address] [place] [address] Erythrocytes (RBC) 4.34 E6/mcL Normal 3.90-5.40 [facility] Comment on above: Performed By: #### 2 850930 ####JOELLE [address] [place] [address] Hematocrit (HCT) 38.0 % Normal 36.0-48.0 [facility] Comment on above: Performed By: #### 2 181981 ####JOELLE [address] [place] [address] Hemoglobin mass conc (Bld) 13.1 g/dL Normal 12.0-16.0 [facility] Comment on above: Performed By: #### 2 [id number] ####JOELLE [address] [place] [address] MCH 30.2 pg Normal 27.0-31.0 [facility] Comment on above: Performed By: #### 2 [id number] ####JOELLE [address] [place] [id number] MCHC mass conc (RBC) 34.6 g/dL Normal 33.0-37.0 [facility] Comment on above: Performed By: #### 2 [id number] ####JOELLE [address] [place] [address] MCV 87.4 fL Normal 78.0-100.0 [facility] Comment on above: Performed By: #### 2 [id number] ####JOELLEMelody [address]iz[address]ye[address]xsy[address] [place] [address] Platelet mean volume (PMV) 8.6 fL Normal 7.4-11.0 [facility] Comment on above: Performed By: #### 2 126883 ####JOELLE [address] [place] [id number] Platelets 268 E3/mcL Normal 130-400 [facility] Comment on above: Performed By: #### 2 [id number] ####JOELLE [address] [place] [id number] WBC (Leukocytes) 14.8 E3/mcL High 3.6-11.0 [facility] Comment on above: Performed By: #### 2 [id number] ####JOELLE [address] [place] [address] Group B Strep PCRon 12-16-19 18 Group B Strep PCR Negative Normal [facility] Comment on above: Order Comment: Order Added by Discern Expert. Performed By: #### 2 [id number] ####JOELLE [id number] [place] [address] C Urineon 11-30-2017 C Urine Final Report: Normal skin bob isolated Normal [facility] Comment on above: Performed By: #### 2 [id number] ####JOELLE [address] [place] [address] Auto Diffon 09-30-2017 Basophils Auto #/vol (Bld) 0.0 E3/mcL Normal 0.0-0.2 [facility] Comment on above: Order Comment: Order Added by Discern Expert. Performed By: #### 2 [id number] ####JOELLE [address] [place] [address] Basophils/100 WBC Auto (Bld) 0.2 % Normal 0.0-2.0 [facility] Comment on above: Order Comment: Order Added by Discern Expert. Performed By: #### 2 [id number] ####JOELLE [address] [place] [address] Eos Absolute 0.1 E3/mcL Normal 0.0-0.7 [facility] Comment on above: Order Comment: Order Added by Discern Expert. Performed By: #### 2 [id number] ####JOELLE [address] [place] [address] Eosinophils/100 leukocytes 1.0 % Normal 0.0-11.0 [facility] Comment on above: Order Comment: Order Added by Discern Expert. Performed By: #### 2 [id number] ####JOELLE [address] [place] [address] Lymphocytes 2.3 E3/mcL Normal 1.2-3.4 [facility] Comment on above: Order Comment: Order Added by Discern Expert. Performed By: #### 2 [id number] ####JOELLE [address] [place] [address] Lymphocytes/100 leukocytes 20.5 % Normal 20.0-55.0 [facility] Comment on above: Order Comment: Order Added by Discern Expert. Performed By: #### 2 [id number] ####JOELLE [address] [place] [address] Person Absolute 0.8 E3/mcL High 0.0-0.7 [facility] Comment on above: Order Comment: Order Added by Discern Expert. Performed By: #### 2 [id number] ####JOELLE [address] [place] [address] Monocytes/100 leukocytes 7.2 % Normal 0.0-10.0 [facility] Comment on above: Order Comment: Order Added by Discern Expert. Performed By: #### 2 [id number] ####JOELLE [address] [place] [id number] Neutro Absolute 7.8 E3/mcL High 1.4-6.5 [facility] Comment on above: Order Comment: Order Added by Discern Expert. Performed By: #### 2 [id number] ####JOELLE [address] [place] [id number] Neutro Auto 71.1 % Normal 37.0-75.0 [facility] Comment on above: Order Comment: Order Added by Discern Expert. Performed By: #### 2 [id number] ####JOELLE [address] [place] [id number] CBC w/ Auto Diffon 8 Erythrocyte distribution width Auto Ratio (RBC) 13.8 % Normal 11.5-14.5 [facility] Comment on above: Performed By: #### 2 [id number] ####JOELLE [address] [place] [id number] Erythrocytes (RBC) 4.05 E6/mcL Normal 3.90-5.40 [facility] Comment on above: Performed By: #### 2 742571 ####JOELLE [address] [place] [id number] Hematocrit (HCT) 35.5 % Low 36.0-48.0 [facility] Comment on above: Performed By: #### 2 [id number] ####JOELLE [address] [place] [id number] Hemoglobin mass conc (Bld) 12.2 g/dL Normal 12.0-16.0 [facility] Comment on above: Performed By: #### 2 [id number] ####JOELLE [address] [place] [id number] MCH 30.3 pg Normal 27.0-31.0 [facility] Comment on above: Performed By: #### 2 [id number] ####JOELLE [address] [place] [id number] MCHC mass conc (RBC) 34.5 g/dL Normal 33.0-37.0 [facility] Comment on above: Performed By: #### 2 [id number] ####JOELLE [address] [place] [address] MCV 87.8 fL Normal 78.0-100.0 [facility] Comment on above: Performed By: #### 2 [id number] ####JOELLE [address] [place] [address] Platelet mean volume (PMV) 7.1 fL Low 7.4-11.0 [facility] Comment on above: Performed By: #### 2 [id number] ####JOELLE [address] [place] [address] Platelets 256 E3/mcL Normal 130-400 [facility] Comment on above: Performed By: #### 2 783677 ####JOELLE [address] [place] [address] WBC (Leukocytes) 11.0 E3/mcL Normal 3.6-11.0 [facility] Comment on above: Performed By: #### 2 806749 ####JOELLE [address] [place] [address] Gest Scr Glu 1 Hron 10-01-19 18 Glucose mass conc 102 mg/dL Normal 70-140 [facility] Comment on above: Performed By: #### 2 [id number] ####JOELLE [address] [place] [address] US After 1st Trime steron 08-22-2017 US After 1st Trimester Exam Date/Time:08/22/2017 14:32 ESTReason for Exam: DATES AND ANATOMY;Standard AnatomyReportUS After 1st TrimesterCLINICAL STATEMENT: . Standard anatomy. EDC January 09, 2018.COMPARISON: None.TECHNIQUE: Transabdominal ultrasound of [...] 3:54 pmSigned by: Shady Gómez DO Technologist: Normal [facility] IGP W/hpv Rfx [id number] 07-03 Diagnosis: See Ref Lab Report Normal [facility] Comment on above: Order Comment: Order Added by Discern Expert. Performed By: #### 2 [id number] ####JOELLE [id number] [place] [address] RPRon 07-02-2017 RPR Ql Non-Reactive Normal Non-Reactive [facility] Comment on above: Performed By: #### 2 [id number] ####JOELLE [address]Esuo[address] [place] [address] C Urineon 06-29-2017 C Urine Final Report: Rare g rowth of Normal skin bob isolated Normal [facility] Comment on above: Performed By: #### 2 [id number] ####JOELLE Microbiology [address] [place] [address] Hep Bs Agon 06-28-2017 BSA (Body Surface Area) Negative Normal Negative [facility] Comment on above: Result Comment: Perf ormed At: CB [facility] [id number] [place], [place] [id number] Vincent PhD Ph:[phone] Performed By: #### 2 [id number] ####JOELLE Send Outs [address] [place] [address] ABO/Rh Echoon 06-27-2017 ABO/Rh E Interp... Positive Normal [facility] Comment on above: Performed By: #### 8 [id number] ####JOELLE [facility] [address] [address] Antibody Screen Cap...on Screen Interp... Negative Normal [facility] Comment on above: Performed By: #### 8 [id number] ####JOELLE [facility] [address] [address] Auto Diffon 06-27-2017 Basophils Auto #/vol (Bld) 0.0 E3/mcL Normal 0.0-0.2 [facility] Comment on above: Order Comment: Order Added by Discern Expert. Performed By: #### 2 [id number] ####JOELLE [address]Hjfy[address] [place] [address] Basophils/100 WBC Auto (Bld) 0.3 % Normal 0.0-2.0 [facility] Comment on above: Order Comment: Order Added by Discern Expert. Performed By: #### 2 [id number] ####JOELLE DxkHugt[address] [place] [address] Eos Absolute 0.1 E3/mcL Normal 0.0-0.7 [facility] Comment on above: Order Comment: Order Added by Discern Expert. Performed By: #### 2 [id number] ####JOELLE JynIhav[address] [place] [address] Eosinophils/100 leukocytes 0.7 % Normal 0.0-11.0 [facility] Comment on above: Order Comment: Order Added by Discern Expert. Performed By: #### 2 [id number] ####JOELLE MebQyvr[address] [place] [address] Lymphocytes 2.8 E3/mcL Normal 1.2-3.4 [facility] Comment on above: Order Comment: Order Added by Discern Expert. Performed By: #### 2 [id number] ####JOELLE [address] [place] [address] Lymphocytes/100 leukocytes 29.9 % Normal 20.0-55.0 [facility] Comment on above: Order Comment: Order Added by Discern Expert. Performed By: #### 2 131195 ####JOELLE [address] [place] [address] Person Absolute 0.6 E3/mcL Normal 0.0-0.7 [facility] Comment on above: Order Comment: Order Added by Discern Expert. Performed By: #### 2 396101 ####JOELLE [address] [place] [address] Monocytes/100 leukocytes 6.6 % Normal 0.0-10.0 [facility] Comment on above: Order Comment: Order Added by Discern Expert. Performed By: #### 2 722656 ####JOELLE [address] [place] [address] Neutro Absolute 5.8 E3/mcL Normal 1.4-6.5 [facility] Comment on above: Order Comment: Order Added by Discern Expert. Performed By: #### 2 396055 ####JOELLE [address] [place] [address] Neutro Auto 62.5 % Normal 37.0-75.0 [facility] Comment on above: Order Comment: Order Added by Discern Expert. Performed By: #### 2 [id number] ####JOELLE [address] [place] [address] CBC w/ Auto Diffon 7 Erythrocyte distribution width Auto Ratio (RBC) 12.6 % Normal 11.5-14.5 [facility] Comment on above: Performed By: #### 2 [id number] ####JOELLE [address] [place] [address] Erythrocytes (RBC) 4.46 E6/mcL Normal 3.90-5.40 [facility] Comment on above: Performed By: #### 2 [id number] ####JOELLE [address] [place] [address] Hematocrit (HCT) 38.2 % Normal 36.0-48.0 [facility] Comment on above: Performed By: #### 2 [id number] ####JOELLE [address] [place] [address] Hemoglobin mass conc (Bld) 13.0 g/dL Normal 12.0-16.0 [facility] Comment on above: Performed By: #### 2 [id number] ####JOELLE [address] [place] [address] MCH 29.2 pg Normal 27.0-31.0 [facility] Comment on above: Performed By: #### 2 874116 ####JOELLE [address] [place] [address] MCHC mass conc (RBC) 34.1 g/dL Normal 33.0-37.0 [facility] Comment on above: Performed By: #### 2 [id number] ####JOELLE [address] [place] [id number] MCV 85.6 fL Normal 78.0-100.0 [facility] Comment on above: Performed By: #### 2 [id number] ####JOELLE [address] [place] [address] Platelet mean volume (PMV) 7.4 fL Normal 7.4-11.0 [facility] Comment on above: Performed By: #### 2 [id number] ####JOELLE [address] [place] [address] Platelets 296 E3/mcL Normal 130-400 [facility] Comment on above: Performed By: #### 2 [id number] ####JOELLE [address] [place] [address] WBC (Leukocytes) 9.2 E3/mcL Normal 3.6-11.0 [facility] Comment on above: Performed By: #### 2 438213 ####JOELLE [address] [place] [address] Chlamydia GC by PCRon 2016 Chlamydia by PCR. Not Detected Normal Not Detected [facility] Comment on above: Result Comment: Xper t CT/NG Assay performance has not been evaluated in patients less than 14 years of age. Performed By: #### 3 [id number] ####JOELLE Mis Micro SubSection, Gonorrhoeae by PCR Not Detected Normal Not Detected [facility] Comment on above: Result Comment: Xper t CT/NG Assay performance has not been evaluated in patients less than 14 years of age. Performed By: #### 3 [id number] ####JOELLE Misc Micro SubSection, HIV-1/2 Ag/Abon 06-27-2017 HIV-1/2 Ag/Ab Non-Reactive Normal Non-Reactive [facility] Comment on above: Performed By: #### 6 [id number] ####JOELLE Chemistry Manual [id number] [place] [address] Pathology ([facility])on 06-27-2017 Pathology ([facility]) FINAL GYNECOLOGIC CYTOLOGY [id number] ADEQUACYSatisfactory for EvaluationClinical information indicates , therefore endocervical component isnot applicable.GENERAL CATEGORIZATIONNegative for Intraepithelial Lesion or MalignancyDESCRIPTIVE DIAGNOSISFungi consistent with Ken species.CLINICAL HISTORYSPECIMEN(A ) SCREENING CERVICAL/ENDOCERVICAL LIQUID-BASED PAPPerformed at [facility], [address] [place], [place] [address]Screened by: Signed Out by: XAVIER LUEVANO Construction Engineering Manager Reported: 07/02/2017 Normal [facility] Comment on above: Performed By: #### G YN ####[facility] [address] [place] [address] Rubella IgG Lvlon 06-27-2017 Rubella IgG Lvl 7.0 (NEG) Normal [facility] Comment on above: Result Comment: <10I U/ml NON REACTIVE: NOT [id number] IU/ml RUBELLA SPECIFIC AB PRESENT, EVALUATEFURTHER TO DETERMINE IMMUNE STATUS >15 IU/ml REACTIVE, IMMUNE Performed By: #### 2 [id number] ####JOELLE [address]Ws[address] [place] [address] TSHon 06-27-2017 Thyroid stimulating hormone (TSH) 1.69 mIU/m Normal 0.30-5.60 [facility] Comment on above: Performed By: #### 2 [id number] ####JOELLE [address] [place] [address] Vital Signs Date Time Vital Sign Value Performing Clinician Facility 12-15-2024 14:04-0400 Body height 157.[address] Vilma Min MD Work Phone: [facility] 12-15-2024 14:00-0400 Body mass index (BMI) [Ratio] 26.5 kg/m2 Dr. Vilma Min MD Work Phone: [facility] 12-15-2024 14:00-0400 Body weight 65.[address] Vilma Min MD Work Phone: [facility] 12-15-2024 14:00-0400 Diastolic blood pressure 85 mm[Hg] Dr. Vilma Min MD Work Phone: [facility] 12-15-2024 14:00-0400 Systolic blood pressure 127 mm[Hg] Dr. Vilma Min MD Work Phone: [facility] 12-01-2024 08:28-0400 Body height 157.[address] Vilma Min MD Work Phone: [facility] 12-01-2024 08:28-0400 Body mass index (BMI) [Ratio] 27.3 kg/m2 Dr. Vilma Min MD Work Phone: [facility] 12-01-2024 08:28-0400 Body weight 67.[address] Vilma Min MD Work Phone: [facility] 12-01-2024 08:28-0400 Diastolic blood pressure 81 mm[Hg] Dr. Vilma Min MD Work Phone: [facility] 12-01-2024 08:28-0400 Systolic blood pressure 127 mm[Hg] Dr. Vilma Min MD Work Phone: [facility] 10-26-2024 14:17-0400 Body height 157.[address] Vilma Min MD Work Phone: [facility] 10-26-2024 14:17-0400 Body mass index (BMI) [Ratio] 27.2 kg/m2 Dr. Vilma Min MD Work Phone: [facility] 10-26-2024 14:17-0400 Body temperature 99 [degF] Dr. Vilma Min MD Work Phone: [facility] 10-26-2024 14:17-0400 Body weight 67.[address] Vilma Min MD Work Phone: [facility] 10-26-2024 14:17-0400 Diastolic blood pressure 81 mm[Hg] Dr. Vilma Min MD Work Phone: [facility] 10-26-2024 14:17-0400 Heart rate 89 /min Dr. Vilma Min MD Work Phone: [facility] 10-26-2024 14:17-0400 Respiratory rate 18 /min Dr. Vilma Min MD Work Phone: [facility] 10-26-2024 14:17-0400 SaO2% (BldA) [Mass fraction] 97 % Dr. Vilma Min MD Work Phone: [facility] 10-26-2024 14:17-0400 Systolic blood pressure 127 mm[Hg] Dr. Vilma Min MD Work Phone: [facility] 10-15-2024 09:59-0400 Body temperature 97.5 [degF] Dr. Vilma Min MD Work Phone: [facility] 10-15-2024 09:59-0400 Diastolic blood pressure 61 mm[Hg] Dr. Vilma Min MD Work Phone: [facility] 10-15-2024 09:59-0400 Heart rate 66 /min Dr. Vilma Min MD Work Phone: [facility] 10-15-2024 09:59-0400 Respiratory rate 16 /min Dr. Vilma Min MD Work Phone: [facility] 10-15-2024 09:59-0400 SaO2% (BldA) [Mass fraction] 100 % Dr. Vilma Min MD Work Phone: [facility] 10-15-2024 09:59-0400 Systolic blood pressure 113 mm[Hg] Dr. Vilma Min MD Work Phone: [facility] 10-15-2024 08:40-0400 Body height 157.[address] Vilma Min MD Work Phone: [facility] 10-15-2024 08:40-0400 Body mass index (BMI) [Ratio] 27.4 kg/m2 Dr. Vilma Min MD Work Phone: [facility] 10-15-2024 08:40-0400 Body weight 68.[address] Vilma Min MD Work Phone: [facility] 05-24-2024 08:58-0500 Body mass index (BMI) [Ratio] 28 kg/m2 Dr. Vilma Min MD Work Phone: [facility] 05-24-2024 08:58-0500 Body temperature 98.7 [degF] Dr. Vilma Min MD Work Phone: [facility] 05-24-2024 08:58-0500 Body weight 69.[address] Vilma Min MD Work Phone: [facility] 05-24-2024 08:58-0500 Diastolic blood pressure 68 mm[Hg] Dr. Vilma Min MD Work Phone: [facility] 05-24-2024 08:58-0500 Heart rate 79 /min Dr. Vilma Min MD Work Phone: [facility] 05-24-2024 08:58-0500 Respiratory rate 18 /min Dr. Vilma Min MD Work Phone: [facility] 05-24-2024 08:58-0500 SaO2% (BldA) [Mass fraction] 96 % Dr. Vilma Min MD Work Phone: [facility] 05-24-2024 08:58-0500 Systolic blood pressure 103 mm[Hg] Dr. Vilma Min MD Work Phone: [facility] 10-20-2023 10:37-0400 Body height 157.5 cm Silvano Grace MD Work Phone: [facility] 10-20-2023 10:37-0400 Body mass index (BMI) [Ratio] 26.52 kg/m2 Silvano Grace MD Work Phone: [facility] 10-20-2023 10:37-0400 Body temperature 98.6 [degF] Silvano Grace MD Work Phone: [facility] 10-20-2023 10:37-0400 Body weight 65.77 kg Silvano Grace MD Work Phone: [facility] 10-20-2023 10:37-0400 Diastolic blood pressure 83 mm[Hg] Silvano Grace MD Work Phone: [facility] 10-20-2023 10:37-0400 Heart rate 99 /min Silvano Grace MD Work Phone: [facility] 10-20-2023 10:37-0400 Respiratory rate 16 /min Silvano Grace MD Work Phone: [facility] 10-20-2023 10:37-0400 SaO2% (BldA) [Mass fraction] 98 % Silvano Grace MD Work Phone: [facility] 10-20-2023 10:37-0400 Systolic blood pressure 135 mm[Hg] Silvano Grace MD Work Phone: [facility] 09-18-2023 13:57-0500 Diastolic blood pressure 85 mm[Hg] Silvano Grace MD Work Phone: [facility] 09-18-2023 13:57-0500 Heart rate 111 /min Silvano Grace MD Work Phone: [facility] 09-18-2023 13:57-0500 Respiratory rate 98 /min Silvano Grace MD Work Phone: [facility] 09-18-2023 13:57-0500 Respiratory rate 16 /min Silvano Grace MD Work Phone: [facility] 09-18-2023 13:57-0500 Systolic blood pressure 125 mm[Hg] Silvano Grace MD Work Phone: [facility] 09-18-2023 13:52-0500 Body height 157.5 cm Silvano Grace MD Work Phone: [facility] 09-18-2023 13:52-0500 Body mass index (BMI) [Ratio] 26.63 kg/m2 Silvano Grace MD Work Phone: [facility] 09-18-2023 13:52-0500 Body temperature 97.59 [degF] Silvano Grace MD Work Phone: [facility] 09-18-2023 13:52-0500 Body weight 66.04 kg Silvano Grace MD Work Phone: [facility] 09-18-2023 13:52-0500 SaO2% (BldA) [Mass fraction] 98 % Silvano Grace MD Work Phone: [facility] 06-17-2023 14:41-0500 Body height 157.5 cm Nikki Stevens MD Work Phone: [facility] 06-17-2023 14:41-0500 Body mass index (BMI) [Ratio] 27.76 kg/m2 Nikki Stevens MD Work Phone: [facility] 06-17-2023 14:41-0500 Body weight 68.86 kg Nikki Stevens MD Work Phone: [facility] 06-17-2023 14:41-0500 Diastolic blood pressure 70 mm[Hg] Nikki Stevens MD Work Phone: [facility] 06-17-2023 14:41-0500 Systolic blood pressure 128 mm[Hg] Nikki Stevens MD Work Phone: [facility] 05-01-2023 15:11-0400 Body height 157.5 cm Silvano Grace MD Work Phone: [facility] 05-01-2023 15:11-0400 Body mass index (BMI) [Ratio] 27.98 kg/m2 Silvano Grace MD Work Phone: [facility] 05-01-2023 15:11-0400 Body temperature 98.71 [degF] Silvano Grace MD Work Phone: [facility] 05-01-2023 15:11-0400 Body weight 69.4 kg Silvano Grace MD Work Phone: [facility] 05-01-2023 15:11-0400 Diastolic blood pressure 86 mm[Hg] Silvano Grace MD Work Phone: [facility] 05-01-2023 15:11-0400 Heart rate 110 /min Silvano Grace MD Work Phone: [facility] 05-01-2023 15:11-0400 Respiratory rate 16 /min Silvano Grace MD Work Phone: [facility] 05-01-2023 15:11-0400 SaO2% (BldA) [Mass fraction] 98 % Silvano Grace MD Work Phone: [facility] 05-01-2023 15:11-0400 Systolic blood pressure 138 mm[Hg] Silvano Grace MD Work Phone: [facility] 11-25-2022 15:26-0400 Body height 160.02 cm No PCP None -[facility] Work Phone: 11-25-2022 15:26-0400 Body mass index (BMI) [Ratio] 25.33 kg/m2 No PCP None -[facility] Work Phone: 11-25-2022 15:26-0400 Body surface area Derived from formula 1.68 m2 No PCP None [facility] Work Phone: 11-25-2022 15:26-040 Body weight 64.86 kg No PCP None -[facility] Work Phone: 11-25-2022 15:26-0400 Diastolic blood pressure 76 mm[Hg] No PCP None [facility] Work Phone: 11-25-2022 15:26-0400 Heart rate 84 /min No PCP None -[facility] Work Phone: 11-25-2022 15:26-0400 Systolic blood pressure 122 mm[Hg] No PCP None -[facility] Work Phone: 03-11-2022 14:24-0400 Body height 157.48 cm No PCP None -[facility] Work Phone: 03-11-2022 14:24-0400 Body mass index (BMI) [Ratio] 25.79 kg/m2 No PCP None -[facility] Work Phone: 03-11-2022 14:24-0400 Body surface area Derived from formula 1.65 m2 No PCP None -[facility] [address] Work Phone: 03-11-2022 14:24-0400 Body temperature 97.8 [degF] No PCP None -[facility] [address] Work Phone: 03-11-2022 14:24-0400 Body weight 63.96 kg No PCP None -[facility] [address] Work Phone: 07-24-2021 15:21-0500 Body height 157.5 cm [facility] Work Phone: [facility] 07-24-2021 15:21-0500 Body mass index (BMI) [Ratio] 26.16 kg/m2 [facility] Work Phone: [facility] 07-24-2021 15:21-0500 Body temperature 98.71 [degF] [facility] Work Phone: [facility] 07-24-2021 15:21-0500 Body weight 64.86 kg [facility] [facility] Work Phone: [facility] 07-24-2021 15:21-0500 Diastolic blood pressure 85 mm[Hg] [facility] Work Phone: [facility] 07-24-2021 15:21-0500 Heart rate 101 /min [facility] Work Phone: [facility] 07-24-2021 15:21-0500 Respiratory rate 16 /min [facility] Work Phone: [facility] 07-24-2021 15:21-0500 SaO2% (BldA) [Mass fraction] 98 % [facility] [employer] Work Phone: [facility] 07-24-2021 15:21-0500 Systolic blood pressure 116 mm[Hg] [facility] [employer] Work Phone: [facility] 12-15-2020 11:24-0400 Body height 157.48 cm No PCP None [facility] [address] Work Phone: 12-15-2020 11:24-0400 Body mass index (BMI) [Ratio] 25.64 kg/m2 No PCP None [facility] [address] Work Phone: 12-15-2020 11:24-0400 Body surface area Derived from formula 1.64 m2 No PCP None [facility] [address] Work Phone: 12-15-2020 11:24-0400 Body temperature 97.8 [degF] No PCP None [facility] [address] Work Phone: 12-15-2020 11:24-0400 Body weight 63.6 kg No PCP None [facility] [address] Work Phone: 12-15-2020 11:24-0400 Diastolic blood pressure 80 mm[Hg] No PCP None [facility] [address] Work Phone: 12-15-2020 11:24-0400 Systolic blood pressure 114 mm[Hg] No PCP None [facility] [address] Work Phone: 11-28-2020 14:07-0400 Body height 157.48 cm No PCP None [facility] [address] Work Phone: 11-28-2020 14:07-0400 Body mass index (BMI) [Ratio] 26.77 kg/m2 No PCP None [facility] [address] Work Phone: 11-28-2020 14:07-0400 Body surface area Derived from formula 1.67 m2 No PCP None [facility] miguel-Rosita [address] Work Phone: 11-28-2020 14:07-0400 Body temperature 98 [degF] No PCP None Antonio[facility]Amisha [facility] [address] Work Phone: 11-28-2020 14:07-0400 Body weight 66.4 kg No PCP [facility] Work Phone: 11-28-2020 14:07-0400 Diastolic blood pressure 70 mm[Hg] No PCP None [facility] miguel[facility]Rosita [facility] Work Phone: 11-28-2020 14:07-0400 Systolic blood pressure 112 mm[Hg] No PCP None [facility] Work Phone: 06-23-2020 15:55-0500 BMI (Body Mass Index) 29.52 kg/m2 Carole Mancuso [facility] [address] Work Phone: 06-23-2020 15:55-0500 Body Temperature 97.5 [degF] [facility] [address] Work Phone: Comment on above: Method: Temporal 06-23-2020 15:55-0500 Body weight 73.2 kg Carole Mancuso [facility] [address] Work Phone: 06-23-2020 15:55-0500 BP Diastolic 78 mm[Hg] Carole Mancuso [facility] [address] Work Phone: 06-23-2020 15:55-0500 BP Systolic 110 mm[Hg] Carole Mancuso [facility] [address] Work Phone: 06-23-2020 15:55-0500 BSA (Body Surface Area) 1.74 m2 Carole Mancuso [facility] [address] Work Phone: 06-23-2020 15:55-0500 Height 157.48 cm Carole Mancuso [facility] [address] Work Phone: 05-26-2020 15:12-0500 BMI (Body Mass Index) 27.22 kg/m2 Carole Mancuso [facility] [address] Work Phone: 05-26-2020 15:12-0500 Body Temperature 97.5 [degF] Carole [facility] [address] Work Phone: Comment on above: Method: Temporal 05-26-2020 15:12-0500 Body weight 67.5 kg Carole Mancuso [facility] [address] Work Phone: 05-26-2020 15:12-0500 BP Diastolic 60 mm[Hg] Carole Mancuso [facility] [address] Work Phone: Comment on above: Location: LUE; Position: Sitting 05-26-2020 15:12-0500 BP Systolic 120 mm[Hg] Carole Mancuso [facility] [address] Work Phone: Comment on above: Location: LUE; Position: Sitting 05-26-2020 15:12-0500 BSA (Body Surface Area) 1.69 m2 Carole [facility] [address] [employer] Work Phone: 05-26-2020 15:12-0500 Height 157.48 cm Carole Mancuso [facility] [address] [employer] Work Phone: 01-10-2020 15:42-0400 BMI (Body Mass Index) 24.16 kg/m2 [facility] 01-10-2020 15:42-0400 Body Temperature 98.01 [degF] [facility] 01-10-2020 15:42-0400 Body weight 59.92 kg [facility] 01-10-2020 15:42-0400 BP Diastolic 81 mm[Hg] [facility] 01-10-2020 15:42-0400 BP Systolic 123 mm[Hg] [facility] 01-10-2020 15:42-0400 Height 157.5 cm [facility] 01-10-2020 15:42-0400 Pulse (Heart Rate) 83 /min [facility] 01-10-2020 15:42-0400 Pulse Oximetry 97 % [facility] 01-10-2020 15:42-0400 Respiratory Rate 16 /min [facility] 06-17-2019 14:30-0500 BMI (Body Mass Index) 24.33 kg/m2 [facility] 06-17-2019 14:30-0500 Body Temperature 98.4 [degF] [facility] 06-17-2019 14:30-0500 Body weight 60.33 kg [facility] 06-17-2019 14:30-0500 BP Diastolic 83 mm[Hg] [facility] 06-17-2019 14:30-0500 BP Systolic 117 mm[Hg] [facility] 06-17-2019 14:30-0500 Height 157.5 cm [facility] 06-17-2019 14:30-0500 Pulse (Heart Rate) 91 /min [facility] 06-17-2019 14:30-0500 Pulse Oximetry 96 % [facility] 06-17-2019 14:30-0500 Respiratory Rate 18 /min [facility] 05-17-2019 14:58-0500 BMI (Body Mass Index) 24.69 kg/m2 [facility] 05-17-2019 14:58-0500 Body Temperature 98.2 [degF] [facility] 05-17-2019 14:58-0500 Body weight 61.24 kg [facility] 05-17-2019 14:58-0500 BP Diastolic 83 mm[Hg] [facility] 05-17-2019 14:58-0500 BP Systolic 118 mm[Hg] [facility] 05-17-2019 14:58-0500 Height 157.5 cm [facility] 05-17-2019 14:58-0500 Pulse (Heart Rate) 84 /min [facility] 05-17-2019 14:58-0500 Pulse Oximetry 98 % [facility] 05-17-2019 14:58-0500 Respiratory Rate 18 /min [facility] Encounters Encounter Date Encounter Type Care Provider Facility Start: 01-31-2025 ambulatory Vilma Min Facility :[facility] Start: 01-26-2025 End: 01-26-[address] Olinda Berriso MD Work Phone: -Radiology [facility] Start: 01-26-2025 End: 01-26-2025 Patient encounter procedure Brenda Crwaford PA -Radiology [facility] Work Phone: Start: 01-26-2025 End: 01-26-2025 ambulatory Brenda Crawford Facility:[facility] Start: 12-17-2024 ambulatory SILVANO KHAN [facility] Ambulatory Start: 12-15-2024 End: 12-15-2024 Patient encounter procedure Margaret Santizo COMFORT FILLER-C -[facility] Work Phone: Start: 12-15-2024 End: 12-15-[address] Vilma Min MD Work Phone: [facility] Work Phone: Start: 12-15-2024 End: 12-15-2024 ambulatory Margaret Santizo Facility:[facility] Start: 12-10-[address] Per Fairchild MD -Employee Health Start: 12-10-2024 ambulatory Per Fairchild Facili ty:[facility] Start: 12-08-2024 End: 12-08-[address] Vilma Min MD Work Phone: [facility] Work Phone: Start: 12-08-2024 End: 12-08-[address] Imelda Metzger DO -[facility] Work Phone: Start: 12-08-2024 End: 12-08-2024 ambulatory Vilma Woodardlay Facility:[facility] Start: 12-01-2024 End: 12-01-[address] Imelda Metzger DO -[facility] Work Phone: Start: 12-01-2024 End: 12-01-[address] Imelda Metzger DO [facility] Start: 12-01-2024 End: 12-01-[address] Vilma Min MD Work Phone: [facility] Work Phone: Start: 11-30-2024 End: 12-01-2024 ambulatory Vilma Min Facility:[facility] Start: 11-22-2024 End: 11-22-[address] Vilma Min MD Work Phone: [facility] Work Phone: Start: 11-22-2024 End: 11-22-2024 Patient encounter procedure Rae Nogueira CNM -Laboratory Work Phone: Start: 11-22-2024 End: 11-22-2024 ambulatory Vilma Woodardlay Facility:[facility] Start: 11-18-2024 End: 11-18-[address] Vilma Min MD Work Phone: [facility] Work Phone: Start: 11-18-2024 End: 11-18-2024 Patient encounter procedure Rae Nogueira CNM -Laboratory Work Phone: Start: 11-18-2024 End: 11-18-2024 ambulatory Vilma Woodardlay Facility:[facility] Start: 11-11-2024 End: 11-11-2024 Patient encounter procedure Rae Jero CNM -Laboratory,Future Work Phone: Start: 11-11-2024 End: 11-11-2024 ambulatory Vilma Woodardlay Facility:[facility] Start: 11-09-2024 End: 11-09-2024 Patient encounter procedure Kirstie Carter COMFORT FILLER-C -Laboratory Work Phone: Start: 11-09-2024 End: 11-09-2024 ambulatory Vilma Woodardlay Facility:[facility] Start: 11-04-2024 End: 11-04-2024 Patient encounter procedure Margaret Santizo COMFORT FILLER-C -Laboratory Work Phone: Start: 11-04-2024 End: 11-04-2024 ambulatory Margaret Santizo Facility:[facility] Start: 10-26-2024 End: 10-26-[address] Olinda Berrios MD -[facility] Work Phone: Start: 10-26-2024 End: 10-26-2024 ambulatory Vilma Min Facility:[facility] Start: 10-15-2024 Non-patient / Non-visit Dr. Olinda michel MD -[facility] Start: 10-15-2024 End: 10-15-2024 Admission to same day surgery center Dr. Olinda Berrios MD -Surgical Day Care Start: 10-15-2024 End: 10-15-[address] Vilma Min MD Work Phone: [facility] Work Phone: Start: 10-13-2024 End: 10-13-[address] Olinda Berrios MD -[facility] Work Phone: Start: 10-13-2024 End: 10-13-2024 ambulatory Olinda Berrios Facility:[facility] Start: 10-11-2024 Registered Referred HEALTH RIS K ASSESSMENT -Laboratory Work Phone: Start: 10-11-2024 ambulatory Health Risk Assessment Facility:[facility] Start: 10-01-2024 ambulatory SILVANO [facility] Ambulatory Start: 09-27-[address] Per Fairchild MD -Employee Health Start: 09-27-2024 ambulatory Per Weiss ty:[facility] Start: 09-15-2024 ambulatory Vilma [place] Facility :[facility] Start: 09-09-2024 ambulatory Margaret Santizo Facility :[facility] Start: 09-06-2024 End: 09-06-2024 Patient encounter procedure Kirstie Carter COMFORT FILLER-C -[facility] Work Phone: Start: 09-06-2024 End: 09-06-2024 ambulatory Vilma Pako Facility:[facility] Start: [address] Per Fairchild MD -Employee Health Start: 2024 ambulatory Per Weiss ty:[facility] Start: 08-17-[address] Per Fairchild MD -Employee Health Start: 08-17-2024 ambulatory Per Weiss ty:[facility] Start: 08-05-2024 ambulatory Derrell Monaco Facility :[facility] Start: 07-13-2024 ambulatory Vilma [place] Facility :[facility] Start: 07-01-2024 End: 07-01-2024 Patient encounter procedure Carisa Mohan PA -Laboratory, [facility] Start: 06-30-2024 End: 07-01-2024 ambulatory Vilma Pako Facility:[facility] Start: 05-24-2024 End: 05-24-2024 ambulatory SILVANO SANJAY Facility:[facility] Start: 05-18-2024 End: 05-18-2024 ambulatory SILVANO SANJAY Facility:[facility] Start: 05-14-2024 ambulatory SILVANO [facility] Ambulatory Start: 05-12-2024 End: 05-12-2024 ambulatory SILVANO SANJAY Facility:[facility] Start: 05-12-2024 End: 05-12-2024 ambulatory SILVANO SANJAY Facility:[facility] Start: 03-24-2024 End: 03-24-2024 ambulatory SILVANO SANJAY Facility:[facility] Start: 03-22-2024 End: 03-23-2024 ambulatory SILVANO SANJAY Facility:[facility] Start: 03-18-2024 End: 03-18-2024 ambulatory SILVANO SANJAY Facility:[facility] Start: 03-10-2024 [facility] Start: 03-05-2024 ambulatory SILVANO SANJAY Facility: [facility] Start: 02-18-2024 End: 02-18-2024 ambulatory SILVANO [facility] Start: 02-17-2024 End: 02-17-2024 ambulatory Paul SMITH Facility:[facility] Start: 02-09-2024 End: 02-09-2024 ambulatory SILVANO H [facility] Start: 02-07-2024 End: 02-09-2024 Refill Silvano Grace MD Work Phone: [facility] Start: 12-06-2023 Refill Silvano Grace MD Work Phone: [facility] Start: 10-31-2023 End: 10-31-2023 Clinical Support Jackie Hodge LPN [facility] Comment on above: Need for vaccination [Z23] (Primary Dx) Need for vaccination (Primary Dx) Start: 10-20-2023 End: 10-20-2023 Office outpatient visit 15 minutes Silvano Grace MD Work Phone: [facility] Comment on above: control counse ling (Primary Dx) Start: 09-26-2023 End: 09-26-2023 Clinical Support Jackie Hodge LPN [facility] Comment on above: Need for vaccination [Z23] (Primary Dx) Start: 09-18-2023 End: 09-22-2023 ambulatory SILVANO GRACE [facility] Start: 09-18-2023 End: 09-18-2023 Office outpatient visit 25 minutes Silvano Grace MD Work Phone: [facility] Comment on above: Vaginal discharge (P rimary Dx); Dyspareunia in female; Pre-employment examination Start: 06-17-2023 End: 06-17-2023 ambulatory [facility] Ambulatory Start: 06-17-2023 End: 06-17-2023 Encounter for gynecological examination (general) (routine) without abnormal findings [facility] Start: 06-17-2023 End: 06-17-2023 Patient encounter procedure Nikki Stevens MD Work Phone: [facility] Work Phone: Start: 06-17-2023 End: 06-17-2023 Periodic preventive med est patient 18-39 yrs Nikki Stevens MD Work Phone: [facility] Comment on above: Cervical cancer scre ening (Primary Dx); Encounter for annual routine gynecological examination; Encounter for surveillance of contraceptive pills Start: 05-01-2023 End: 05-01-2023 Patient encounter status Silvano Grace MD Work Phone: [facility] Start: 05-01-2023 End: 05-01-2023 Periodic preventive med est patient 18-39 yrs Silvano Grace MD Work Phone: [facility] Comment on above: Skin mole; Wellness examination; Hemorrhoids, unspecified hemorrhoid type; Rib pain Start: 02-20-2023 ambulatory CNM, DREW RIVERA FRIED Facility:[id number] Start: 12-19-2022 ambulatory CNM, DREW RIVERA FRIED Facility:[id number] Start: 11-25-2022 ambulatory MICHELE SIPPEY Facility:[id number] Start: 11-25-2022 Patient encounter procedure No PCP None [facility] Work Phone: Start: 10-29-2022 End: 11-02-2022 ambulatory [facility] Start: 10-29-2022 End: 11-02-2022 Encounter for general adult medical examination without abnormal findings [facility] Start: 03-13-2022 Chart Update No PCP None [facility] Work Phone: Start: 03-11-2022 Office outpatient ne w 30 minutes No PCP None [facility] Work Phone: Start: 03-11-2022 ambulatory Ms. Jackie Barriga Facility:[id number] Start: 09-24-2021 Refill Katrin washburn MANAGER C[facility] Work Phone: [facility] Comment on above: Anxiety with depress ion Start: 07-24-2021 End: 07-24-2021 Office outpatient visit 15 minutes Katrin Pearson CNP Work Phone: [facility] Comment on above: Anxiety with depress ion (Primary Dx); Wellness examination; Bug bite, initial encounter Start: 07-24-2021 End: 07-24-2021 Patient encounter status Katrin Pearson CNP Work Phone: [facility] Start: 12-15-2020 Office outpatient vi sit 10 minutes No PCP None [facility] [address] Work Phone: Start: 07-12-2020 Patient encounter procedure Carole [place] [facility] [address] Work Phone: Start: 07-06-2020 Patient encounter procedure Carole [place] [facility] [address] Work Phone: Start: 06-23-2020 Patient encounter procedure Carole Naif [facility] [address] Work Phone: Start: 05-26-2020 Patient encounter procedure Carole Naif [facility] [address] Work Phone: Start: 04-26-2020 Patient encounter procedure Carole [place] [facility] [employer] Work Phone: Start: 03-29-2020 Patient encounter procedure Carole Mancuso DO [facility] [address] [employer] Work Phone: Start: 03-01-2020 Patient encounter procedure Carole [facility]ancuso DO [facility] [address] [employer] Work Phone: Start: 01-10-2020 End: 01-10-2020 Patient encounter procedure Katrin Pearson Work Phone: [facility] Comment on above: Skin tag (Primary Dx ) Start: 06-17-2019 End: 06-17-2019 Periodic preventive med est patient 18-39 yrs Katrin Pearson Work Phone: [facility] Comment on above: Routine gynecologica l examination (Primary Dx); control counseling Start: 05-17-2019 End: 05-17-2019 Initial preventive medicine new pt age 18-39yrs Katrin Pearson Work Phone: [facility] Comment on above: Wellness examination (Primary Dx); Anxiety with depression Start: 05-17-2019 Patient encounter status Yosef Pearson MANAGER CENTER Work Phone: [facility] Start: 01-19-2018 Ambulatory Nelly Kartik Facility:[facility] Start: 01-09-2018 End: 01-11-2018 Evaluation and management of inpatient Nodr No Doctor Assigned Facility:[facility] Start: 01-01-2018 End: 01-02-2018 Ambulatory Nelly Kartik Facility:[facility] Start: 12-25-2017 End: 12-26-2017 Ambulatory Nelly Kartik Facility:[facility] Start: 12-18-2017 End: 12-19-2017 Ambulatory Nelly Kartik Facility:[facility] Start: 12-12-2017 End: 12-13-2017 Ambulatory Nelly Kartik Facility:[facility] Start: 12-12-2017 End: 12-13-2017 Ambulatory Nelly Kartik Facility:[facility] Start: 11-28-2017 End: 11-29-2017 Ambulatory Nelly Kartik Facility:[facility] Start: 11-14-2017 End: 11-15-2017 Ambulatory Nelly Kartik Facility:[facility] Start: 10-31-2017 End: 11-01-2017 Ambulatory Nelly Kartik Facility:[facility] Start: 10-16-2017 End: 10-17-2017 Ambulatory Nelly Kartik Facility:[facility] Start: 09-30-2017 End: 10-01-2017 Ambulatory Nelly Kartik Facility:[facility] Start: 09-19-2017 End: 09-20-2017 Ambulatory Nelly Kartik Facility:[facility] Start: 08-22-2017 End: 08-23-2017 Ambulatory Nelly Karitk Facility:[facility] Start: 08-22-2017 End: 08-23-2017 Ambulatory Nelly Kartik Facility:[facility] Start: 07-25-2017 End: 07-26-2017 [facility] Start: 06-27-2017 End: 06-28-2017 Ambulatory Nelly Kartik [facility] Start: 05-30-2017 End: 05-31-2017 Ambulatory Nelly Kartik [facility] Start: 05-28-2017 End: 05-29-2017 Ambulatory Nelly Kartik [facility] Patient encounter procedure Carole Naif [address] Work Phone: Comment on above: 06/2019-NEGATIVE -NEGATIVE; Procedures Date Procedure Procedure Detail Performing Clinician Start: 01-26-2025 X-ray of lumbosacral spine Dr. Olinda Berrios MD Work Phone: Start: 12-15-2024 Serologic test for syphilis Dr. Vilma Min MD Work Phone: Start: 12-10-2024 SARS-CoV-2, Influenz a & RSV (PCR) Dr. Vilma Min MD Work Phone: Start: 12-08-2024 US scan of thyroid Dr. Vilma Min MD Work Phone: Start: 12-01-2024 Liquid based cervica l cytology screening Dr. Olinda Berrios MD Work Phone: Start: 12-01-2024 Vitamin D, 25-hydrox y measurement Dr. Vilma Min MD Work Phone: Comment on above: Vitamin D StatusDefi ciency: <20 ng/mL (50nmol/L)Insufficiency: 20-30 ng/mL (50-75 nmol/L)Sufficiency: 30-100 ng/mL (75-250 nmol/L)Toxicity: >100 ng/mL (>250 nmol/L) Start: 10-15-[address] Vilma Min MD Work Phone: Start: 10-11-2024 Serum inorganic phos phate measurement Dr. Vilma Min MD Work Phone: Start: 10-11-2024 Urnls dip stick/tabl et reagent auto microscopy Dr. Vilma Min MD Work Phone: Start: 09-27-2024 SARS-CoV-2, Influenz a & RSV (PCR) Dr. Vilma Min MD Work Phone: Start: 09-06-[address] Melody Min MD Work Phone: Start: 2024 SARS-CoV-2, Influenz a & RSV (PCR) Dr. Vilma Min MD Work Phone: Start: 08-17-2024 SARS-CoV-2, Influenz a & RSV (PCR) Dr. Vilma Min MD Work Phone: Start: 09-18-2023 Iadna ken specie s direct probe tq Silvano Grace MD Work Phone: Start: 06-17-2023 Microscopic observat ion [Identifier] in Cervix by Cyto stain Silvano Grace MD Work Phone: Start: 05-01-2023 Adult depression scr eening assessment Silvano Grace MD Work Phone: Start: 06-23-2020 CBC W Auto Different ial panel - Blood Carole Naif Start: 06-23-2020 Glucose post glucose dose Carole [place] Start: 06-06-2020 MAC Imaging Order Carole Naif Start: 06-17-2019 Microscopic observat ion [Identifier] in Cervix by Cyto stain [facility] Start: 05-17-2019 Adult depression scr eening assessment spring History of No histor y of surgery Carole Naif DO Insertion of intraut erine contraceptive device No PCP None Comment on above: 11/28/2020: Micheal; Plan of Treatment Date Care Activity Detail Author Start: 2042 Zoster Vaccines (1 o f 2) Zoster Vaccines (1 of 2) [facility] Start: 07-21-2030 DTaP/Tdap/Td Vaccine s (5 - Td or Tdap) DTaP/Tdap/Td Vaccines (5 - Td or Tdap) [facility] Start: 07-21-2030 Tetanus vaccination Tetanus: Every 1 0yrs [facility] Start: 06-17-2028 Screening for malign ant neoplasm of cervix [facility] Start: 06-17-2026 Screening for malign ant neoplasm of cervix [facility] Start: 12-15-2024 Serologic test for syphilis [facility] Start: 12-15-2024 Herpes simplex virus identified in Unspecified specimen by Organism specific culture [facility] Start: 12-01-2024 Liquid based cervica l cytology screening [facility] Start: 10-15-2024 Exc b9 lesion mrgn x cp sk tg s/n/h/f/g 3.1-4.0cm EXC H-F-NK-SP B9+STEPHY 3.1-4 [facility] Start: 10-15-[address] [facility] Start: 06-21-2024 End: 06-21-2024 Patient encounter procedure 06/21/2024 11:15 AM EST Office Visit [facility] [address] [place] [id number] Nikki Stevens MD [address] [facility] [place] [address] [facility] Start: 06-17-2024 History and physical examination, annual for health maintenance Wellness Visit [facility] Start: 05-06-2024 End: 05-06-2024 Patient encounter procedure 05/06/2024 3:00 PM EDT Office Visit [facility] [address] [place] [phone] [place] [address] [place] [id number] [facility] Start: 05-01-2024 Depression screening using PHQ-9 (Patient Health Questionnaire 9) score [facility] Start: 05-01-2024 History and physical examination, annual for health maintenance Wellness Visit [facility] Start: 03-14-2024 Influenza vaccination [facility] Start: 03-01-2024 End: 03-01-2024 Clinical Support 03/01/2024 3:00 PM EDT Clinical Support [facility] [address] [place] [phone] [facility] Start: 10-31-2023 End: 10-31-2023 Clinical Support 10/31/2023 3:00 PM EDT Clinical Support [facility] [address] [place] [phone] [facility] Start: 10-20-2023 End: 10-20-2023 Patient encounter procedure 10/20/2023 11:40 AM EDT Office Visit [facility] [address] [place] [phone] Silvano Grace MD [address] [place] [id number] [facility] Start: 06-17-2023 End: 06-17-2024 Cytology Cervical or vaginal smear or scraping study THINPREP PAP TEST Pathology and Cytology Routine Cervical cancer screening Expected: 06/17/2023, Expires: 06/17/2024 [facility] Service Area Work Phone: Comment on above: Expected: 06/17/2023 , Expires: 06/17/2024 Start: 03-14-2023 COVID-19 Vaccine () COVID-19 Vaccine ( season) [facility] Start: 03-14-2023 Influenza vaccination [facility] Start: 2022 Screening for malign ant neoplasm of cervix HPV/Cotest [facility] Start: 06-17-2022 Screening for malign ant neoplasm of cervix Pap Smear [facility] Start: 04-08-2022 FUV, Provider: Jackie Barriga, Status: Pen, Time: 2:30 PM FUV, Provider: Jackie Barriga, Status: Pen, Time: 2:30 PM [facility] [address] Work Phone: Start: 01-10-2022 Influenza vaccination Sequenti al Influenza Vaccine (#1) [facility] Comment on above: Postponed from 03/14 (Patient Refused) Start: 09-10-2021 COVID-19 Vaccine (3 - Booster for Pfizer series) COVID-19 Vaccine (3 - Booster for Pfizer series) [facility] Start: 08-23-2021 End: 08-23-2021 Patient encounter procedure 08/23/2021 Office Visit Primary Care Katrin Pearson, MANAGER CENTER [address] [place] [address] [facility]icians Start: 06-07-2021 COVID-19 Vaccine (3 - Pfizer series) COVID-19 Vaccine (3 - Pfizer series) [facility] Start: 06-17-2020 History and physical examination, annual for health maintenance Wellness Visit [facility] Start: 05-17-2020 Depression screening using PHQ-9 (Patient Health Questionnaire 9) score DEPRESSION SCREENING (PHQ9) [facility] Start: 05-17-2020 History and physical examination, annual for health maintenance Wellness Visit [facility] Start: 03-29-2020 Antibody hiv-1 HIV Antigen/An tibody Screen [facility] [address] Work Phone: Start: 03-29-2020 Antibody rubella Rubella IgG Antibod y [employer] Phone: Start: 03-29-2020 Hemoglobin Identification Hemoglobin Identification Order [employer] Phone: Start: 03-29-2020 Hepatitis c antibody Hepatitis C Antibody Test [facility] [employer] Phone: Start: 03-29-2020 Iaad ia hepatitis b surface antigen Hepatitis B Surface Antigen [facility] [employer] [facility] [employer] Work Phone: Start: 03-29-2020 Iadna chlamydia trachomatis amplified probe tq GC + Chlamydia By Amplified Detection [facility] [employer] Phone: Start: 03-29-2020 SYPHILIS SCREENING W ITH REFLEX SYPHILIS SCREENING WITH REFLEX [facility] [employer] Work Phone: Start: 03-29-2020 Type and Screen Type and Screen [facility] Work Phone: Start: 03-17-2020 Depression Remission Assessment (PHQ9) Depression Remission Assessment (PHQ9) [facility] Start: 03-14-2020 Influenza vaccinatio n given Sequential Influenza Vaccine (Season Ended) [facility] Start: 01-11-2020 Influenza vaccinatio n given SEQUENTIAL INFLUENZA VACCINE (#1) [facility] Comment on above: Postponed from 03/14 (Patient Refused) Start: 08-17-2019 End: 08-17-2019 Office Visit [facility] Start: 02-08-2018 Varicella vaccination Varicell a Vaccines (1 of 2 - 2-dose childhood series) [facility] Start: 2013 Screening for malign ant neoplasm of cervix [facility] Start: 2010 Hepatitis C screening Hepatitis C Sc reening [facility] Start: 2007 HIV screening HIV Screening [facility] Start: 03-31-1996 Hepatitis B Vaccines (2 of 3 - 3-dose series) Hepatitis B Vaccines (2 of 3 - 3-dose series) [facility] Start: 1995 History and physical examination, annual for health maintenance Wellness Visit [facility] Start: 1992 Lipid panel Lipid Panel [facility] Start: 1992 Screening for malign ant neoplasm of cervix PAP SMEAR [facility] Start: 1992 Tetanus vaccination [facility] Start: 1992 Yearly Adult Physical Yearly Adult P [facility] End: 09-17-2024 Chlamydia trachomatis rRNA assay Chlamydia/GC/Trichomona s Amplified RNA Microbiology Routine Vaginal discharge Dyspareunia in female 1 Occurrences starting 09/18/2023 until 09/17/2024 [facility] Work Phone: Comment on above: 1 Occurrences starti ng 09/18/2023 until 09/17/2024 Chlamydia trachomati s rRNA assay Chlamydia/GC/Trichomona s Amplified RNA Microbiology Routine Vaginal discharge Dyspareunia in female 09/18/2023 2:43 PM EST [facility] Cobalamin (Vitamin B 12) [Mass/volume] in Serum or Plasma [facility] Cytology report of Cervical or vaginal smear or scraping Cyto stain.thin prep [facility] End: 09-17-2024 Gardnerella vaginalis rRNA assay Vaginitis DNA Probes Microbiology Routine Vaginal discharge 1 Occurrences starting 09/18/2023 until 09/17/2024 [facility] Comment on above: 1 Occurrences starti ng 09/18/2023 until 09/17/2024 Gardnerella vaginali s rRNA assay Vaginitis DNA Probes Microbiology Routine Vaginal discharge 09/18/2023 2:43 PM EST [facility] Glucose [Mass/volume ] in Serum or Plasma [facility] End: 09-17-2024 Hepatitis B surface antibody measurement Hepatitis B Surface antibody Lab Routine Pre-employment examination 1 Occurrences starting 09/18/2023 until 09/17/2024 [facility] Comment on above: 1 Occurrences starti ng 09/18/2023 until 09/17/2024 Hepatitis B surface antibody measurement Hepatitis B Surface antibody Lab Routine Pre-employment examination 09/18/2023 2:49 PM EST [facility] End: 09-17-2024 Hepatitis B surface antigen measurement Hepatitis B Surface Antigen Lab Routine Pre-employment examination 1 Occurrences starting 09/18/2023 until 09/17/2024 [facility] Comment on above: 1 Occurrences starti ng 09/18/2023 until 09/17/2024 Hepatitis B surface antigen measurement Hepatitis B Surface Antigen Lab Routine Pre-employment examination 09/18/2023 2:49 PM EST [facility] Herpes simplex virus identified in Unspecified specimen by Organism specific culture [facility] Herpes simplex virus identified in Unspecified specimen by Organism specific culture [facility] Lipid 1996 panel - Serum or Plasma [facility] Liquid based cervica l cytology screening [facility] End: 09-17-2024 Measurement of Measles virus antibody Rubeola Antibody, IgG Lab Routine Pre-employment examination 1 Occurrences starting 09/18/2023 until 09/17/2024 [facility] Comment on above: 1 Occurrences starti ng 09/18/2023 until 09/17/2024 Measurement of Measl es virus antibody Rubeola Antibody, IgG Lab Routine Pre-employment examination 09/18/2023 2:49 PM EST [facility] Microscopic examinat ion of vaginal Papanicolaou smear Thinprep Pap Smear Pathology and Cytology Routine Routine gynecological examination Ordered: 06/17/2019 [facility] Comment on above: Ordered: 06/17/2019 End: 09-17-2024 MTB SCREEN MTB SCREEN Lab Routine Pre-employment examination 1 Occurrences starting 09/18/2023 until 09/17/2024 [facility] Comment on above: 1 Occurrences starti ng 09/18/2023 until 09/17/2024 MTB SCREEN MTB SCREEN Lab R outine Pre-employment examination 09/18/2023 2:49 PM EST [facility] End: 09-17-2024 Mumps IgG level Mumps Antibody, IgG Lab Routine Pre-employment examination 1 Occurrences starting 09/18/2023 until 09/17/2024 [facility] Comment on above: 1 Occurrences starti ng 09/18/2023 until 09/17/2024 Mumps IgG level Mumps Antibody, IgG Lab Routine Pre-employment examination 09/18/2023 2:49 PM EST [facility] Neisseria gonorrhoea e nucleic acid detection Chlamydia/Gonorrhoeae Amplified RNA Microbiology Routine Vaginal discharge Dyspareunia in female 09/18/2023 2:43 PM EST [facility] Path report.final Dx Spec [facility] Patient referral [facility] Work Phone: T4 free measurement [facility] Thyroid stimulating hormone measurement [facility] Trichomonas vaginali s Amplified RNA Trichomonas vaginalis Amplified RNA Microbiology Routine Vaginal discharge Dyspareunia in female 09/18/2023 2:43 PM EST [facility] US Thyroid gland [facility] Vitamin D, 25-hydrox y measurement [facility] NEGATED: Highlighted row has been ruled out! Planned Goals not documented [facility] Work Phone: Immunizations Immunization Date Immunization Notes Care Provider Major costa 05-24-2024 influenza, injectabl e, madin latasha canine kidney, preservative free Dr. Vilma Min MD Work Phone: [facility] 05-24-2024 Influenza, injectabl e, Madin [place] Canine Kidney, preservative free, quadrivalent Dr. Vilma Min MD Work Phone: [facility] 10-31-2023 hepatitis B vaccine, adult dosage Jackie Chenfett PHYSICIAN UNDERWRITER [facility] 10-31-2023 hepatitis B vaccine, unspecified formulation Kam Mayberry MD Work Phone: [facility] 09-26-2023 hepatitis B vaccine, adult dosage [facility] 09-26-2023 hepatitis B vaccine, unspecified formulation Jackie Chenfett PHYSICIAN UNDERWRITER [facility] 04-12-2021 Pfizer SARS-CoV-2 Vaccination [facility] Work Phone: [facility] 03-22-2021 Pfizer SARS-CoV-2 Vaccination [facility] Work Phone: [facility] 07-21-2020 influenza, injectabl e, quadrivalent, preservative free [facility] Work Phone: [facility] 07-21-2020 tetanus toxoid, reduced diphtheria toxoid, and acellular pertussis vaccine, adsorbed [facility] Work Phone: [facility] 07-21-2020 influenza virus vaccine, unspecified formulation Nikki Stevens MD Work Phone: [facility] Work Phone: 01-11-2018 measles, mumps and rubella virus vaccine [facility] Work Phone: [facility] 03-03-1996 diphtheria, tetanus toxoids and acellular pertussis vaccine Dr. Vilma Min MD Work Phone: [facility] 03-03-1996 diphtheria, tetanus toxoids and acellular pertussis vaccine, unspecified formulation [facility] Work Phone: [facility] 03-03-1996 hepatitis B vaccine, pediatric or pediatric/adolescent dosage [facility] Work Phone: [facility] 03-03-1996 trivalent poliovirus vaccine, live, oral [facility] Work Phone: [facility] 11-04-1994 DTP-Haemophilus influenzae type b conjugate vaccine [facility] Work Phone: [facility] 11-04-1994 measles, mumps and rubella virus vaccine [facility] Work Phone: [facility] 11-04-1994 trivalent poliovirus vaccine, live, oral [facility] Work Phone: [facility] 07-04-1993 diphtheria, tetanus toxoids and acellular pertussis vaccine Dr. Vilma Min MD Work Phone: [facility] 07-04-1993 diphtheria, tetanus toxoids and pertussis vaccine [facility] Work Phone: [facility] 07-04-1993 haemophilus influenz ae type b vaccine, conjugate unspecified formulation [facility] Work Phone: [facility] 07-04-1993 haemophilus influenz ae type b vaccine, PRP-T conjugate Dr. Vilma Min MD Work Phone: [facility] 07-04-1993 trivalent poliovirus vaccine, live, oral [facility] Work Phone: [facility] Payers Date Payer Category Payer Unknown [id number] 2024 Unknown [id number] 2024 Self-pay 2023 Private Health Insurance [id number] 2017 Medicaid [id number] 2017 Medicaid [employer] [employer] [id number] 2017-Present [phone] [address] [address] [place] [address] [id number] 2017 Unknown [id number] 2017 Unknown 2017 Private Health Insurance 1992 Unknown [id number] 2.16.840.1.255271.3.579.2.3 56 1992 Unknown [id number] 2.16.840.1.743013.3.579.2.3 56 1992 Unknown [id number] 2.16.840.1.182461.3.579.2.3 56 1992 Unknown [id number] 2.16.840.1.565361.3.579.2.3 56 1992 Unknown [id number] 2.16.840.1.154222.3.579.2.1 244 1992 Unknown [id number] 2.16.840.1.061829.3.579.2.9 03 1992 Unknown [id number] 2.16.840.1.495457.3.579.2.9 03 1992 Unknown [id number] 2.16.840.1.902778.3.579.2.1 243 1992 Unknown [id number] 2.16.840.1.366652.3.579.2.1 243 1992 Unknown [id number] 2.16.840.1.928836.3.579.2.9 03 1992 Unknown [id number] 2.16.840.1.447535.3.579.2.9 03 1992 Unknown [id number] 2.16.840.1.138178.3.579.2.9 03 1992 Unknown [id number] 2.16.840.1.920221.3.579.2.9 03 Private Health Insurance [id number] Unknown [id number] 2.16.840.1.211138.3.579.2.4 62 Unknown [id number] 2.16.840.1.385312.3.579.2.4 62 Unknown [id number] 2.16.840.1.561867.3.579.2.4 62 Unknown [id number] 2.16.840.1.180032.3.579.2.4 62 Unknown [id number] 2.16.840.1.248853.3.579.2.4 62 Unknown [id number] 2..840.1.613189.3.579.2.4 62 Unknown [id number] 2.16.840.1.265582.3.579.2.4 62 Unknown [id number] 2..840.1.093089.3.579.2.4 62 Unknown [id number] 2.16.840.1.601615.3.579.2.4 62 Unknown [id number] 2.16.840.1.634261.3.579.2.4 62 Unknown [id number] 2.16.840.1.551663.3.579.2.4 62 Unknown [id number] .16.840.1.178485.3.579.2.4 62 Unknown [id number] 2.16.840.1.794880.3.579.2.4 62 Unknown [id number] .16.840.1.689898.3.579.2.4 62 Unknown [id number] 2.16.840.1.700625.3.579.2.4 62 Unknown [id number] 2.16.840.1.774412.3.579.2.4 62 Unknown [id number] 2.16.840.1.857976.3.579.2.4 62 Unknown [id number] 2.16.840.1.672191.3.579.2.4 62 Unknown [id number] 2.16.840.1.504002.3.579.2.4 62 Unknown [id number] 2.16.840.1.352256.3.579.2.4 62 Unknown [id number] 2.16.840.1.137270.3.579.2.4 62 Unknown [id number] 2.16.840.1.735048.3.579.2.4 62 Unknown [id number] 2.16.840.1.083232.3.579.2.4 62 Unknown [id number] 2.16.840.1.420605.3.579.2.4 62 Unknown [id number] 2.16.840.1.619626.3.579.2.4 62 Unknown [id number] 2.16.840.1.170223.3.579.2.4 62 Unknown [id number] 2.16.840.1.876449.3.579.2.4 62 Unknown [id number] 2.16.840.1.445131.3.579.2.4 62 Unknown [id number] 2.16.840.1.384874.3.579.2.4 62 Unknown [id number] 2.16.840.1.026271.3.579.2.4 62 Unknown [id number] 2.16.840.1.361519.3.579.2.4 62 Unknown [id number] 2.16.840.1.078137.3.579.2.4 62 Unknown [id number] 2.16.840.1.954276.3.579.2.4 62 Unknown [id number] 2.16.840.1.097895.3.579.2.4 62 Unknown [id number] 2.16.840.1.926345.3.579.2.4 62 Unknown [id number] 2.16.840.1.506883.3.579.2.4 62 Unknown [id number] 2.16.840.1.977519.3.579.2.4 62 Unknown [id number] 2.16.840.1.796176.3.579.2.4 62 Unknown [id number] 2.16.840.1.329254.3.579.2.4 62 Unknown [id number] 2.16.840.1.861813.3.579.2.4 62 Unknown [id number] 2.16.840.1.200183.3.579.2.4 62 Social History Date Type Detail Facility Start: 06-17-2019 End: 12-15-2024 Tobacco smoking status NHIS Never smoker [facility] Start: 06-17-2019 End: 10-20-2023 Alcohol intake Ex-drinker (finding) [facility] Start: 05-17-2019 End: 01-06-2020 History SDOH Alcohol Frequency 1 [facility] Start: 05-17-2019 History SDOH Social Connections Get Together 2 [facility] Start: 05-07-2019 Alcohol Comment NO [facility] Start: 1990 Sex Assigned At Not on file [facility] Start: 06-07-2023 End: 06-17-2023 Exposure to SARS-CoV-2 (event) Not sure [facility] Start: 05-01-2023 End: 10-20-2023 No alcohol use No alcohol use [facility] Start: 05-07-2019 End: 10-29-2022 Tobacco use and exposure Smokeless tobacco non-user [facility] Start: 05-01-2023 End: 10-20-2023 Social connection and isolation panel [facility] Frequency of Communication with Friends and Family Not on file [facility] How often to you hav e a drink containing alcohol? Never [facility] (I/We) worried wheth er (my/our) food would run out before (I/we) got money to buy more. Never true [facility] Start: 10-29-2022 Alcohol Comment occasional [facility] Start: 05-11-2019 Gender identity Identifies as female gender (finding) [facility] Start: 05-11-2019 Sexual orientation Heterosexual (fin ding) [facility] Start: 06-17-2023 Alcohol intake Lifetime non-d giovanni (finding) [facility] Work Phone: Start: 10-15-2024 Sex Female (finding) [facility] Start: 1990 Sex Assigned At Female W [facility] NEGATED: Highlighted row - - [employer] [place] [address] [employer] Work Phone: Goals Date Patient Goal Desired [...] status health issues are not documented Disease [facility] [employer] Work Phone: Mental Status Date Assessment Result Facility 10-15-2024 Cognitive function Voice/Name [facility] Work Phone: NEGATED: Highlighted row Cognitive function [Interpretation] Cognitive status health issues are not documented Disease [place] [address] [employer] Work Phone: Clinical Notes 12-14-2020 to 01-26-2025 Note Date & Type Note Facility 01-26-2025 Radiology Diagnostic study note [facility] Imaging Services [address] [place] [address] L/S Spine Min 4 Views MR#: [id number] Acct: [id number] Name: STEFANIA NICOLE Rep #: [id number] : 1990 F 34 From: Margie Cordova MD PCP: Dr. Vilma Min MD Status: REG CLI Study:L/S Spine Min 4 Views Date of Exam: 01/26/25 Exam# [id number] Ordering Dr: Curtis Crawford EXAM: XR Cervical Spine Flexion/Extension Only, 2 or 3 Views CLINICAL INDICATION: BACK PAIN TECHNIQUE: Lateral flexion/extension views of the cervical spine. COMPARISON: No relevant prior studies available. FINDINGS: VERTEBRAE: Unremarkable. Normal alignment. No acute fracture or significant dynamic instability. DISC SPACES: No acute findings. No significant narrowing. SOFT TISSUES: Unremarkable. RAD/L/S Spine Min 4 Views IMPRESSION: No acute fracture or significant dynamic instability. Reading [facility] CC: SARAH Smith; Dr. Vilma Min MD ~ Fire Pilot: Signed [facility] 12-15-2024 Progress note [facility] 12-15-2024 Progress note Note Date/Time December 15, 2024 2:32pm [facility] ealt System [facility] [address], [address] [place] [address] OFFICE VISIT Date of Service: 12/15/24 MR#: [id number] Acct: [id number] Name: STEFANIA NICOLE Rep #: [id number] : 1990 Provider: NEELAM Santizo Age/Sex: 34/F Location[place] [facility] Status: Signed Intake Vital Signs 12/01/24 08:28 12/15/24 14:00 12/15/24 14:04 Height 5 ft 2 in 5 ft 2 in 5 ft 2 in Weight: 145 lb BMI 26.5 BP 127/85 H Intake Visit Reasons: genital lesion Manager Company Required: No Is patient in pain?: No Allergies amoxicillin (From Augmentin) Allergy (Mild, Verified 12/15/24 14:00) Diarrhea clavulanic acid (From Augmentin) Allergy (Mild, Verified 12/15/24 14:00) Diarrhea Medications ?Medication ?Instructions ?Recorded ?Confirmed ?Type sumatriptan succinate 25 mg tablet See Rx Instructions PO .COMPLEX 11/24/24 12/15/24 Rx (Imitrex) #14 tabs levonorgestrel 0.15 mg-ethinyl 1 tab PO DAILY #84 tabs 12/01/24 12/15/24 Rx estradiol 0.03 mg tablet (Altavera (28)) Is last menstrual period known: No Post menopausal: No Patient : No : No Control Method: ocp- altavera ON LICENSE OF [facility] Medical History GERD (gastroesophageal reflux disease) Frequent headaches History of IBS UTI (urinary tract infection) Back problem Allergies Surgical History No significant past surgical history Family History Grandfather Cancer Lung- maternal AA (alcohol abuse) Grandmother Breast cancer Paternal Diabetes AA (alcohol abuse) Father Diabetes Grandmother Diabetes Grandfather Heart disease Mother AA (alcohol abuse) Hypertension Father Hypertension Diabetes Social History (Updated 12/15/24 @ 14:10 by Kathy Javier) adopted: No household members: significant other number of children: 2 current occupational status: employed 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 Currently seeing someone HPI genital lesion Details: STEFANIA NICOLE is a 34 year old who presents for a genital lesion; she reports she notices a red, irritating bump. Denies pain to this. Started bleeding this morning. She reports she is sexually active; new partner--recent testing last week for GC/CH. Pap pending. Female Reproductive History Questions: metorrhagia: No, sexually active: Yes, dyspareunia: No and PCB: No History 3 Elective abortions Hx Para 2 Spontaneous abortions 1 Hx # Term Pregnancies Ectopic pregnancies Hx # Pregnancies Multiple births # of living children 2 Past Pregnancies Del. Date Name GA/Weeks Outcome Route Bth Weight Gen Labor Lgth Anesthesia Del Locatn Provider FOB Unknown Nita Unknown Pavel ROS Const Constitutional: Denies body ache, chills, fatigue, fever(s), poor appetite, lethargy or malaise Cardio Card: Reports system reviewed and no additional complaints, except as documented GI GI: Reports system reviewed and no additional complaints, except as documented : Reports system reviewed and no additional complaints, except as documented Exam Const General: cooperative, healthy appearing, comfortable, no acute distress, well developed and well groomed Resp Effort & Inspection: normal respiratory effort External Female Exam: normal external appearance (left vulvar inclusion cyst; open. ) and normal appearance of the urethra Urethra: normal appearance of the urethra and normal palpation Speculum Exam - Vagina: normal appearance of the vagina and normal vaginal discharge Speculum Exam - Cervix: normal appearance of the cervix, no cervical discharge and no lesions Neuro General: patient alert, moves all extremities and no focal motor deficits Psych Appearance: grossly normal Mental Status: mental status grossly normal Affect: normal affect Speech and Movement: speech and movement normal Attitude: cooperative Coding Level of Care Code Established Pt Off vis,est,level 3 Patient Type Established Diagnoses Possible exposure to STI Z20.2 Inclusion cyst L72.0 Assessment and Plan Assessment and Plan (1) Possible exposure to STI: Status: Acute Plan: HSV culture obtained; final plan with results. recent GC/CH negative. (2) Inclusion cyst: Status: Acute Plan: Suspected; warm compress. Monitor for worsening or signs/symptoms infection. STD testing obtained to rule out and ensure d/t new partner. Orders: Orders Syphilis Antibodies Today Z11.3 - Encounter for screening for infections with apredominantly sexual mode of transmission HSV Culture Screen Today Z11.3 - Encounter for screening for infections with a predominantly sexual mode of transmission 12/15/24 1432 <Electronically signed by Margaret RICHTER> Date _ Margaret RICHTER Cosigner Signature: Date (if applicable) CC: ~ [place] [facility] Work Phone: 1(217) 935-757905-30-2025 Radiology Diagnostic study note [facility] Imaging Services [address] [place] [address] Thyroid MR#: [id number] Acct: [id number] Name: STEFANIA NICOLE Rep #: [id number] : 1990 F 34 From: Margie Gilbert MD PCP: Dr. Vilma Min MD Status: REG CLI Study:Thyroid Date of Exam: 12/08/24 Exam# [id number] Ordering Dr: Imelda Galicia DO PROCEDURE: THYROID, 12/08/2024 REASON FOR EXAM: ENLARGED THYROID TECHNIQUE: Grayscale and color Doppler imaging of the thyroid was performed. COMPARISON: None FINDINGS: Right lobe measures 5.3 x 1.6 x 1.6cm. Essentially homogeneous background echotexture. No abnormal vascularity. Tiny colloid cyst. No solid or mostly solid nodules are identified. Left lobe measures 4.4 x 1.4 x 1.2 cm. Essentially homogeneous background echotexture. No abnormal vascularity. No solid or mostly solid nodules are identified. Isthmus measures 2 mm in thickness. US/Thyroid IMPRESSION: 1. Assessment is TI-RADS 1. No solid or mostly solid identified. 2. Normal size gland with homogeneous echotexture. No abnormal vascularity. Recommendations per ACR Thyroid Imaging, Reporting and Data System (TI-RADS): White Paper of the ACR TI-RADS Committee, 2017 ([id number]) Reading Location: [id number] CC: Dr. Vilma Min MD; Dr. Imelda Metzger DO ~ Fire Pilot: Signed [facility]04-04-2025 Procedure note [facility] Medical Records Department [address] [place] [address] Operative Report 10/15/24 0952 MR#: [id number] Acct: [id number] Name: STEFANIA NICOLE Rep #:[id number] : 1990 34 From: Olinda Berrios MD PCP: Dr. 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 Post-Operative Diagnosis: Same Surgery/Procedure Performed: Excision neoplasm x 2 posterior scalp (2.0 cm, 2.0 cm) perinatal breastfeeding assistant: No Type of Anesthesia: Local RN Documented Start/Stop Times: Operation Date: 10/15/24 09:20 Case Time Into Pre-Op 10/15/24 08:34 Out of Pre-Op 10/15/24 09:05 Into Room 10/15/24 09:08 Procedure Start 10/15/24 09:23 Procedure End 10/15/24 09:45 Anesthesia End 10/15/24 09:48 Out of Room 10/15/24 09:48 Into Phase II Recovery 10/15/24 09:49 Procedure Start Time: 09:23 Procedure Stop Time: 09:45 Select all DRAINS/GRAFTS/IMPLANTS that apply: None Estimated Blood Loss: Minimal Specimen collected: Yes Description of specimen(s) removed: Neoplasm x2 skin ofthe posterior scalp Description of surgery: The patient presents with 2 exophytic lesions to the posterior scalp which have been there for manyyears but have grown or changed. She presents for excision of the neoplasms with submission for pathologic evaluation. She is marked in the preop holding area prior to surgery and informed consent isobtained. The patient was brought to the operating room and placed on the operating room table in the prone position. The posterior scalp was prepped and draped in the usual sterile fashion. 1% Xylocaine with epinephrine buffered with sodium bicarb was used for local anesthetic. Following this, the sites areexcised andpassed off the operative field to be sent to pathology. Hemostasis is controlled with cautery. The sites were then initially closed with interrupted silk suture. Following this, running and interrupted chromic sutures were used to further refine the closure. The initial approximation silk sutures then removed. Antibiotic ointment are placed on both sites. She tolerated the procedure well and was taken to the recovery area in awake and stable condition. Needle and sponge counts are correct. Surgical Findings: As above Complications Complications: No Admit VTE Documentation VTE Mechan Device Prophylaxis: None Reason prophylaxis not ordered: Treatment Not Indicated 10/15/24 0955 Cosigner Signature (if applicable): CC: Dr. Vilma Min MD; Dr. Olinda Berrios MD~ Signed [facility]04-04-2025 Discharge summary [facility] Medical Records Department [address] [place] [address] Instructions for Home/Discharge Instructions 10/15/24 0950 MR#: [id number] Acct: [id number] Name: STEFANIA NICOLE Rep #:[id number] : 1990 34 From: Olinda Berrios MD PCP: Dr. Vilma Min MD Status:[facility] Discharge Instructions Dressing / Incision Additional Dressing/Incision Instructions:: May shower over the site but do not scrub. Keep your back elevated (recliner position) for the next 4 nights to prevent swelling and bleeding. Take the oral antibiotic (Bactrim) 2 times a day until finished. Apply thin layer of antibiotic ointment (like Neosporin, bacitracin, or triple antibiotic ointment)1 time a day. Follow Up Care Please Follow Up With: Olinda Berrios MD When: 1 to 2 weeks Test Results: Test results from this visit will be discussed in further detail at your follow- up appointment, if applicable. Discharge Plan Admission Attending Provider: Olinda Berrios Primary Care Provider: Vilma Min Instructions Print Language: Occitan Discharge Orders/Prescriptions Prescriptions: New sulfamethoxazole-trimethoprim [Bactrim] 400-80 mg tablet 1 tab PO BID 5 Days Qty: 10 0RF No Action levonorgestrel-ethinyl estrad [Altavera (28)] 0.15-0.03 mg tablet 1 tab PO DAILY Qty: 84 0RF sumatriptan succinate [Imitrex] 25 mg tablet See Rx Instructions PO .COMPLEX Qty: 7 0RF Rx Instructions: take 1 tab at onset of headache; if no relief may repeat 1 tab after at least 2 hrs; max = 4 tabs/24 hr PO Referrals / Follow Up: Vilma Min MD [Primary Care Provider] - Disposition Disposition (needs filled in before D/C Order can be placed): Home, Self Care 10/15/24 0952Olinda Berrios MD CC: Dr. Vilma Min MD ~ Signed [facility]04-04-2025 History and physical note [facility] Medical Records Department [address] [place] [address] History & Physical Exam 10/15/24 0850 MR#: [id number] Acct: [id number] Name: STEFANIA NICOLE Rep #:[id number] : 1990 34 From: Olinda Berrios MD PCP: Dr. Vilma Min MD Status:[facility]02- History and Physical Date of Admission: 10/15/24 The patient is examined and there are no changes to the H&P dated 10/13/24. 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 Informed consent is obtained for excision neoplasms posterior scalp. She is marked in the pre-op area. Assessment & Plan Assessment/Plan (1) Neoplasm of uncertain behavior of skin: PLAN: Plan For excision neoplasms scalp x 2. 10/15/24 0852 Cosigner Signature (if applicable): CC: Dr. Vilma Min MD; Dr. Olinda Berrios MD~ Signed [facility]04-04-2025 [facility] Medical Records Department [address] [place] [address] History Physical Exam 10/15/24 0850 MR#: [id number] Acct: [id number] Name: STEFANIA NICOLE Michael Rep #: [id number] : 1990 34 From: Olinda Berrios MD PCP: Dr. Vilma Min MD Status:[facility] Location[place] [facility]02-1 History and Physical Date of Admission: 10/15/24 The patient is examined and there are no changes to the H P dated 10/13/24. 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 Informed consent is obtained for excision neoplasms posterior scalp. She is marked in the pre-op area. Assessment Plan Assessment/Plan (1) Neoplasm of uncertain behavior of skin: PLAN: Plan For excision neoplasms scalp x 2. 10/15/24 0852 Cosigner Signature (if applicable): CC: Dr. Vilma Min MD; Dr. Olinda Berrios MD [facility]04-02-2025 Evaluation note* Diagnosis Onset Date Resolution Status Admit Date Neoplasm of uncertain behavi or of skin acute October 13, 2024 1:30pm Neoplasm of uncertain behavi or of skin acute October 15, 2024 8:29am [facility] Work Phone: 1(708) 408-789504-02-2025 Evaluation note* Diagnosis Onset Date Resolution Status Admit Date Neoplasm of uncertain behavi or of skin acute October 13, 2024 1:30pm Neoplasm of uncertain behavi or of skin acute October 15, 2024 8:29am Benign neoplasm of skin of scalp acu te October 26, 2024 2:14pm [facility] Work Phone: 1([phone]) 225-450504-02-2025 Evaluation note* Diagnosis Onset Date Resolution Status Admit Date Neoplasm of uncertain behavi or of skin acute October 13, 2024 1:30pm Neoplasm of uncertain behavi or of skin acute October 15, 2024 8:29am Benign neoplasm of skin of scalp acute October 26, 2024 2:14pm Encounter for routine gynecological examination noneactive December 012024 8:23am [facility] Work Phone: 1(397) 522-853604-02-2025 Evaluation note* Diagnosis Onset Date Resolution Status Admit Date Neoplasm of uncertain behavi or of skin acute October 13, 2024 1:30pm Neoplasm of uncertain behavi or of skin acute October 15, 2024 8:29am Benign neoplasm of skin of scalp acute October 26, 2024 2:14pm Brittle nails acute December 01, 2 025 8:23am Enlarged thyroid acute November 8:23am Fatigue acute December 01, 2024 8:23am Hair thinning acute December 01, 2 025 8:23am Encounter for routine gynecological examination noneactive December 012024 8:23am [facility] Work Phone: 1(926) 205-360804-02-2025 Evaluation note* Diagnosis Onset Date Resolution Status Admit Date Neoplasm of uncertain behavi or of skin acute October 13, 2024 1:30pm Neoplasm of uncertain behavi or of skin acute October 15, 2024 8:29am Benign neoplasm of skin of scalp acute October 26, 2024 2:14pm Brittle nails acute December 01, 2 025 8:23am Enlarged thyroid acute November 8:23am Fatigue acute December 01, 2024 8:23am Hair thinning acute December 01, 2 025 8:23am Encounter for routine gynecological examination noneactive December 012024 8:23am Inclusion cyst acute December 15, 2024 1:55pm Possible exposure to STI acute December 15, 2024 1:55pm [facility] Work Phone: 1([phone]) 829-508507-29-2024 Telephone encounter Note* Telephone Encounter - Jackie Hodge LPN - 02/09/2024 8:05 AM EDT Last OV 10/20/23. Next OV 03/01/24. [id number] Miscellaneous Notes* Telephone Encounter - Jackie Hodge LPN - 02/09/2024 8:05 AM EDT Last OV 10/20/23. Next OV 03/01/24. documented in this [id number] Telephone encounter Note* Telephone Encounter - Jackie Hodge LPN - 12/09/2023 8:35 AM EDT Last OV 10/20/23. Next OV 05/06/24. [id number] Miscellaneous Notes* Telephone Encounter - Jackie Hodge LPN - 12/09/2023 8:35 AM EDT Last OV 10/20/23. Next OV 05/06/24. documented in this [id number] History of Present illness Narrative* Jackie Hodge LPN - 11/03/2023 9:38 AM EDT Noted, encounter closed. * Silvano Grace MD - 10/31/2023 8:37 PM EDT Yes that would be fine * Jackie Hodge LPN - 10/31/2023 2:52 PM EDT Pt here for 2nd Hep B vaccination. Pt received this in her right deltoid without difficulty. Pt scheduled for 3rd injection 6 months from , so around march. Pt reportthat she has an appointment with Dr. Grace on 05/06/24 and wants to know if she can wait and get it during this appointment. I advised that we will double check with Dr. Grace and let her know. documented in this [id number] History of Present illness Narrative* Silvano Grace MD - 10/31/2023 8:37 PM EDT Yes that would be fine * Jackie Hodge LPN - 10/31/2023 2:52 PM EDT Pt here for 2nd Hep B vaccination. Pt received this in her right deltoid without difficulty. Pt scheduled for 3rd injection 6 months from 1, so around end march. Pt reportthat she has an appointment with Dr. Grace on 05/06/24 and wants to know if she can wait and get it during this appointment. I advised that we will double check with Dr. Grace and let her know. documented in this [id number] History of Present illness Narrative* Silvano Grace MD - 10/20/2023 10:53 AM EDT Chief Complaint Patient presents with Discuss Birthcontrol Options HPI: Stefania Nicole is a 33 y.o. female presenting today for an annual. Former patient of [facility]. Patient is relatively healthy with previous history of mild depression and anxiety. Pulled IUD out and pain is better Pap smear next year follows up with [facility] care in [place]. She states it started about 10 days ago. She is having white, curd-like vaginal discharge. She was prescribed 2 courses of Diflucan by obgyn and she took OTC vagisil for 3 days and has had no relief. She states the skin is irritated, menjivar, and itches slightly. She admits to dyspareunia but denies any change in urination or bowel movements, dysuria, change incolor or odor, hematuria or hematochezia, or burning [...] contraceptive methods, including patch and NuvaRing, having p reviously tried them once, but discontinued its use [...] Weight: 65.8 kg (145 lb) Height: 5' 2" Estimated body mass index is 26.52 kg/m as calculated from the following: Height as of this encounter: 5' 2". Weight as of this encounter: 65.8 kg [...] today's visit. No follow-ups on file. 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 She is up to date with tetanus until 2030. Hep b titer ordered. TB quantiferon ordered. Hep c and HIV patient will get records from her obgyn. Dr. Grace placed all orders. [id number] History of Present illness Narrative* Jacinda Jones - 09/18/2023 4:14 PM EST Subjective Patient ID: Stefania Nicole is a 33 y.o. female. HPI Stefania is a 33 year old female presenting [...] in urination or bowel movements, dysuria, change incolor or odor, hematuria or hematochezia, or burning [...] Exam Vitals reviewed. Exam conducted with a drafter engineering present. Constitutional: Appearance: Normal appearance. Cardiovascular: Rate [...] swabs were performed by my preceptor Dr. Grace with student present and assisting. All questions [...] for one week. Exam performed by Dr. Grace. Relevant Medications clotrimazole (LOTRIMIN) 1 % cream [...] will get records from her obgyn. Dr. Grace placed all orders. 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 She is up to date with tetanus until 2030. Hep b titer ordered. TB quantiferon ordered. Hep c and HIV patient will get records from her obgyn. Dr. Grace placed all orders. * Assessment & Plan Note - Jacinda Jones - 09/18/2023 4:11 PM ESTAssociated Problem(s): Dyspareunia in female LIZETT wet prep test performed. STD testing performed. Pelvic exam performed no cervical motion tenderness noted with bimanual exam. Speculum exam white, cured-like discharge noted on cervix. Prescribed clotrimazole 1% cream for one week. * Assessment & Plan Note - Jacinda Jones - 09/18/2023 3:07 PM ESTAssociated Problem(s): Vaginal discharge LIZETT wet prep test performed. Pelvic exam performed no cervical motion tenderness noted with bimanual exam. Speculum exam white, cured-like discharge noted on cervix. Prescribed drospirenone-ethinyl estradiol 0.03mg tablets and clotrimazole 1% cream for one week. Exam performed by Dr. Grace. documented in this [id number] Evaluation + Plan note* Assessment & Plan Note - Jacinda Jones - 09/18/2023 4:11 PM ESTAssociated Problem(s): Dyspareunia in female LIZETT wet prep test performed. STD testing performed. Pelvic exam performed no cervical motion tenderness noted with bimanual exam. Speculum exam white, cured-like discharge noted on cervix. Prescribed clotrimazole 1% cream for one week. [id number] Evaluation + Plan note* Assessment & Plan Note - Jacinda Jones - 09/18/2023 3:07 PM ESTAssociated Problem(s): Vaginal discharge LIZETT wet prep test performed. Pelvic exam performed no cervical motion tenderness noted with bimanual exam. Speculum exam white, cured-like discharge noted on cervix. Prescribed drospirenone-ethinyl estradiol 0.03mg tablets and clotrimazole 1% cream for one week. Exam performed by Dr. Grace. [id number] History of Present illness Narrative* Nikki Stevens MD - 06/17/2023 2:30 PM EST Subjective Patient ID: Stefania Schafer is a 32 y.o. 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 Musculoskeletal denies any changes in mobility Psych denies any changes in her mood but reports she does not sleep well because her children sleepwith her Objective Physical Exam 11/13/2020 1:33 PM [...] (97.8 F) Height (in) 1.575 m (5' 2") 1.575 m (5' 2") 1.575 m (5' 2") 1.575 m (5' 2") 1.6 m (5' 3") 1.6 m (5'3") 1.575 m (5' 2") Weight (lb) 146.39 146.39 140.21 141 143 [...] appeared well estrogenized there was a scant amountof brown discharge the cervix was nonfriable uterus and adnexa were normal size nontender Extremities good mobility Psych appropriately oriented with normal mood and affect Assessment/Plan Stefania is a 32-year-old who comes in with concerns of a brown discharge. Patient has been takinglow-dose control pills continuously therefore suspect the bleeding [...] At this point no further workup is aishwarya cated. Pap smear was done physical exam is benign refill her control pills and follow-up in 1year documented in this [facility] Work Phone: 1(560) 216-199910-23-2023 History of Present illness Narrative* Mariel Chávez MA - 05/05/2023 6:49 AM EDT FAXED [facility] RECORDS [facility] * Silvano Grace MD - 05/01/2023 3:19 PM EDT Chief Complaint Patient presents with Annual Exam [...] today for an annual. Former patient of [facility]. Patient is relatively healthy with previous history of mild depression and anxiety. Right behind rib pain: For the past 2 months intermittent lasting 1-2 mins, happens with bending , sometimes just sitting,felt like something moved. Has been also gassy and bloated. Unsure if it related to food or not. NoN/V , BM regular. At some point last year she was dealing with anxiety and depression, started on Zoloft 25 mg to seeif it helps. Stopped after 6 months. Feels fine no concerns. Abdominal discomfort: With every single meals , GI discomfort relieve with BM, diarrhea , no blood. Associated with bloating. Pulled IUD out and pain is better Pap smear next year follows up with [facility] in [place]. Hemorrhoids: Fullness inside and one outside since [...] Weight: 69.4 kg (153 lb) Height: 5' 2" Estimated body mass index is 27.98 kg/m as calculated from the following: Height as of this encounter: 5' 2". Weight as of this encounter: 69.4 kg [...] CVA tenderness, guarding or rebound. Comments: Negative Aprks sign Musculoskeletal: General: No tenderness. Normal range [...] with other people?: Not difficult at all [id number] Over the last 2 weeks, how often [...] change in features with increased depth, size orhyperpigmentation. Other Wellness examination Pap smear will be done through women[facility] care in [place]. Refusing influenza and COVID shots. Low concern [...] year (around 05/01/2024) for Annual Exam. SILVANO GRACE MD [facility] [address] [facility] [address] Dept: [phone] 05/17/2019 3:00 PM 05/01/2023 3:40 PM Depression [...] Not difficult at all documented in this [id number] Evaluation + Plan note* Assessment & Plan Note - Silvano Grace MD - 05/02/2023 3:59 PM EDTAssociated Problem(s): Rib pain Could be related to muscular pain in the RUQ. No Parks sign or any other signs of cholecystitis at this time. Not related to food. Continue to monitor and check for correlation to increased exertion versus food intake. Holding off on x-ray or RUQ ultrasound. [id number] Miscellaneous Notes* Assessment & Plan Note - Silvano Grace MD - 05/02/2023 3:59 PM EDTAssociated Problem(s): Rib pain Could be related to muscular pain in the RUQ. No Parks sign or any other signs of cholecystitis at this time. Not related to food. Continue to monitor and check for correlation to increased exertion versus food intake. Holding off on x-ray or RUQ ultrasound. * Assessment & Plan Note - Silvano Grace MD - 05/02/2023 3:58 PM EDTAssociated Problem(s): Hemorrhoid Stable no concerns * Assessment & Plan Note - Silvano Grace MD - 05/02/2023 3:58 PM EDTAssociated Problem(s): Skin mole Continue to monitor, currently benign mole with no change in features with increased depth, size orhyperpigmentation. * Assessment & Plan Note - Silvano Grace MD - 05/02/2023 3:58 PM EDTAssociated Problem(s): Wellness examination Pap smear will be done through women's care in [place]. Refusing influenza and COVID shots. Low concern for HIV and hepatitis C at this time. No concern for early screening for breast cancer or colon cancer. documented in this [id number] Evaluation + Plan note* Assessment & Plan Note - Silvano Grace MD - 05/02/2023 3:58 PM EDTAssociated Problem(s): Hemorrhoid Stable no concerns [id number] Evaluation + Plan note* Assessment & Plan Note - Silvano Grace MD - 05/02/2023 3:58 PM EDTAssociated Problem(s): Skin mole Continue to monitor, currently benign mole with no change in features with increased depth, size orhyperpigmentation. [id number] Evaluation + Plan note* Assessment & Plan Note - Silvano Grace MD - 05/02/2023 3:58 PM EDTAssociated Problem(s): Wellness examination Pap smear will be done through women's care in [place]. Refusing influenza and COVID shots. Low concern for HIV and hepatitis C at this time. No concern for early screening for breast cancer or colon cancer. [id number] NoteDiagnoses/Problems Assessed General counseling and advice for contraceptive [...] MOUTH EVERY DAY Vitals Vital Signs Recorded: 20Feb2023 03:43PM [id number] Ijncxdfmp83 Height5 ft 3 in Qyqteq377 lb 6 oz BMI Xzgyokfllt86.57 kg/m2 BSA Calculated1.68 [id number] Physical Exam Constitutional: Alert and in no acute distress. Well developed, well nourished Pulmonary: No respiratory distress Psychiatric: alert and oriented x 3., affect normal to patient baseline, mood: appropriate and judgment and insight: intact Signatures Electronically signed by : MELBA Amin; Feb 20 2023 4:11PM EST (Author)[facility] [id number] History of Present illness NarrativePatient is here today for evaluation of her [...] on for about 2 months. She did noticea ganglion cyst on the dorsum of the wrist just this past week. She has some numbness and tingling but does mention carpal tunnel syndrome during her pregnancies. Pain is worse when putting pressure on the palm. She rates her pain as a 7/10 and describes it as aching and sharp. She is not utilizingTylenol which does seem to help.[facility] [address] Work Phone: 1(237) 282-420703-14-2022 Telephone encounter Note* Telephone Encounter - Salty Brown LPN - 09/24/2021 1:44 PM EDT Attempted to call pt. No answer. Message left informing pt of Zoloft refills. Advised pt to call the office at [phone] with any questions or concerns. [id number] Miscellaneous Notes* Telephone Encounter - Salty Brown LPN - 09/24/2021 1:44 PM EDT Attempted to call pt. No answer. Message left informing pt of Zoloft refills. Advised pt to call the office at [phone] with any questions or concerns. documented in this [id number] History of Present illness Narrative* Jacinda Greco MA - 08/27/2021 12:31 PM EST Mailed ANUSHA to Stefania asking her to merle out and mail back Our last ANUSHA was dated 05/01 [facility] will not release records until they have updated ANUSHA. Trying to get records and labs from Dr. Mancuso. * Jacinda Greco MA - 07/24/2021 4:16 PM EST Faxed ANUSHA to Susan Osorio and for labs. (08/13/[address] Mancuso office for records [phone]. * Katrin Pearson CNP - 07/24/2021 3:29 PM EST Images from the original note were not [...] and other things. She just does not feelwell at this time. She is still her son, he is currently 8 months old, she would liketo breastfeed until he is a year old. [...] Weight: 64.9 kg (143 lb) Height: 5' 2" Body mass index is 26.16 kg/m . [...] medications. Katrin Pearson CNP documented in this [id number] Miscellaneous Notes* Assessment & Plan Note - Katrin Pearson CNP - 07/24/2021 6:51 PM EST Associated Problem(s): Bug bite Healing well, nothing concerning. * Assessment & Plan Note - Katrin Pearson CNP - 07/24/2021 3:33 PM EST Associated Problem(s): Anxiety with depression Will start you on Zoloft 25 mg daily to see if this helps with anxiety and depression. Will also check your labs to make sure your thyroid level is normal, this can cause anxiety and depression. documented in this [id number] Miscellaneous Notes* Assessment & Plan Note - Katrin Pearson CNP - 07/24/2021 6:51 PM EST Associated Problem(s): Bug bite Healing well, nothing concerning. * Assessment & Plan Note - Katrin Pearson CNP - 07/24/2021 3:33 PM EST Associated Problem(s): Anxiety with depression Will start you on Zoloft 25 mg daily to see if this helps with anxiety and depression. Will also check your labs to make sure your thyroid level is normal, this can cause anxiety and depression. documented in this [id number] History of Present illness Narrative* Jacinda Greco MA - 07/24/2021 4:16 PM EST Faxed ANUSHA to [facility] and for labs. (08/13/[address] Mancuso office for records [phone]. * Katrin Pearson CNP - 07/24/2021 3:29 PM EST Images from the original note were not [...] and other things. She just does not feelwell at this time. She is still her son, he is currently 8 months old, she would liketo breastfeed until he is a year old. [...] Weight: 64.9 kg (143 lb) Height: 5' 2" Body mass index is 26.16 kg/m . [...] medications. Katrin Pearson CNP documented in this [id number] Instructions* Patient Instructions* Katrin Pearson CNP - 07/24/2021 3:26 PM [...] to receive the results, review them, and letyou know what steps, if any, are needed next. If you haven't heard from us after that please call to inquire. If labs were ordered to be done PRIOR to your next visit we will discuss the results at the time ofyour office visit. If any procedures or imaging [...] look into their status. Customer Service/Billing Questions: [phone] [facility] Assistance: [phone] or [phone] Financial Assistance: [phone] or [phone] documented in this [id number] Instructions* Patient Instructions* Katrin Pearson CNP - 07/24/2021 3:26 PM [...] to receive the results, review them, and letyou know what steps, if any, are needed next. If you haven't heard from us after that please call to inquire. If labs were ordered to be done PRIOR to your next visit we will discuss the results at the time ofyour office visit. If any procedures or imaging [...] look into their status. Customer Service/Billing Questions: [phone] [place] Assistance: [phone] or [phone] Financial Assistance: [phone] or [phone] documented in this [id number] History of Present illness [id number] presents for IUD follow-up. Patient notes a little bit heavier bleeding last day or 2. Patient was ever since placement she felt the strings were too long they poked her GI to talk to himand sometimes. Patient notes minimal no cramps. Patient has not had intimacy.Myoonet Phone: discharge summary Author Olinda Berrios [facility] Note Date/Time October 15, 2024 9:52 am [facility] Medical Records Department [address] [place] [address] Instructions for Home/Discharge Instructions 10/15/24 0950 MR#: [id number] Acct: [id number] Name: STEFANIA NICOLE Rep #:[id number] 5 : 1990 34 From: Olinda Berrios MD PCP: Dr. Vilma Min MD Status[place] [place] Instructions Dressing / Incision Additional Dressing/Incision Instructions:: May shower over the site but do not scrub. Keep your back elevated (recliner position) for the next 4 nights to prevent swelling and bleeding. Take the oral antibiotic (Bactrim) 2 times a day until finished. Apply thin layer of antibiotic ointment (like Neosporin, bacitracin, or triple antibiotic ointment) 1 time a day. Follow Up Care Please Follow Up With: Olinda Berrios MD When: 1 to 2 weeks Test Results: Test results from this visit will be discussed in further detail at your follow- up appointment, if applicable. Discharge Plan Admission Attending Provider: Olinda Berrios Primary Care Provider: Vilma Min Instructions Print Language: Occitan Discharge Orders/Prescriptions Prescriptions: New sulfamethoxazole-trimethoprim [Bactrim] 400-80 mg tablet 1 tab PO BID 5 Days Qty: 10 0RF No Action levonorgestrel-ethinyl estrad [Altavera (28)] 0.15-0.03 mg tablet 1 tab PO DAILY Qty: 84 0RF sumatriptan succinate [Imitrex] 25 mg tablet See Rx Instructions PO .COMPLEX Qty: 7 0RF Rx Instructions: take 1 tab at onset of headache; if no relief may repeat 1 tab after at least 2 hrs; max = 4 tabs/24 hr PO Referrals / Follow Up: Vilma Min MD [Primary Care Provider] - Disposition Disposition (needs filled in before D/C Order can be placed): Home, Self Care 10/15/24 0952<Electronically signed by Olinda Berrios MD>Olinda Berrios MD CC: Dr. Vilma Min MD ~ Signed [facility] Work Phone: Evaluation note* Diagnosis Anxiety with depression- Primary Wellness examination Bug bite, [facility] Anxiety with depression [facility] Diagnosis Skin mole Benign neoplasm of skin, site unspecified Wellness examination Hemorrhoids, unspecified hemorrhoid type Rib pain Unspecified chest pain [facility] Diagnosis Cervical cancer screening- Primary Screening for malignant neoplasm of the cervix Encounter for annual routine gynecological examination Encounter for surveillance of contraceptive pills documented in this encounter [facility] Work Phone: Evaluation note* Diagnosis Vaginal discharge- [...] [facility] Diagnosis Need for vaccination- Primary Need for prophylactic vaccination and inoculation against unspecified single disease [facility] Diagnosis Need for vaccination [Z23]- Primary Need for prophylactic vaccination and inoculation against unspecified single disease [facility] Author Olinda Berrios [facility] Note Date/Time October 15, 2024 8:52 am [facility] Medical Records Department [address] [place] [address] History & Physical Exam 10/15/24 0850 MR#: [id number] Acct: [id number] Name: STEFANIA NICOLE Rep #:[id number] 4 : 1990 34 From: Olinda Berrios MD PCP: Dr. Vilma Min MD Status:[facility] Location: [place] [address] History and Physical Date of Admission: 10/15/24 The patient is examined and there are no changes to the H&P dated 10/13/24. 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 Informed consent is obtained for excision neoplasms posterior scalp. She is marked in the pre-op area. Assessment & Plan Assessment/Plan (1) Neoplasm of uncertain behavior of skin: PLAN: Plan For excision neoplasms scalp x 2. 10/15/24 0852 <Electronically signed by Olinda Berrios MD> Cosigner Signature (if applicable): CC: Dr. Vilma Min MD; Dr. Olinda Berrios MD~ Signed [facility] Work Phone: History of Present illness Narrative* Ms. Schafer is a 32-year-old female seen by self-referral for evaluation of hemorrhoids. * She has never had a colonoscopy. She has no family history of colon or rectal cancer. [facility] Work Phone: Instructions* Name Dates Details Instructions not documented [address] Work Phone: Reason for referral (narrative)No reason for referral information [facility] Work Phone: Summary Purpose Family History No [...] No pertinent family history: Mother(V49.89, Z78.9) Status:Active Relationship Condition Age at Onset Recorded Date/T hollis grandfather Malignant neoplasm Unknown Alcohol abuse Unknown grandmother Malignant neoplasm of breast Unknown Diabetes mellitus Unknown father Diabetes mellitus Unknown grandmother Diabetes mellitus Unknown grandfather Cardiac disease Unknown mother Alcohol abuse Unknown Hypertension Unknown father Hypertension Unknown Advance Directives No Advanced Directives Records FoundDocuments on File Type Date Recorded 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 She states she is exhausted. [place] decision to wait to start medications and [...] Weight: 61.2 kg (135 lb) Height: 5' 2" Body mass index is 24.69 kg/m . [...] series of the right wrist performed today.Hemorrhoids Chief Complaint and Reason for Visit Chief Complaint Admit Date AUB September 06, 2024 7:47am SPOT ON HEAD October 13, 2024 1:30 pm Reason for Visit Admit Date Neoplasm of uncertain behavior of skin A pril 2024 1:30pm Neoplasm of uncertain behavior of skin A pril 2024 8:29am Chief Complaint Admit Date AUB September 06, 2024 7:47am SPOT ON HEAD October 13, 2024 1:30 pm post op lesion October 26, 2024 2:1 4pm LABS November 04, 2024 11: 08am LABS November 09, 2024 12: 20pm LABS November 11, 2024 9:33am E-ORDER November 18, 2024 10:22a m Reason for Visit Admit Date Neoplasm of uncertain behavior of skin A pril 2024 1:30pm Neoplasm of uncertain behavior of skin A pril 2024 8:29am Benign neoplasm of skin of scalp October 122024 2:14pm Chief Complaint Admit Date AUB September 06, 2024 7:47am SPOT ON HEAD October 13, 2024 1:30 pm post op lesion October 26, 2024 2:1 4pm LABS November 04, 2024 11: 08am LABS November 09, 2024 12: 20pm LABS November 11, 2024 9:33am E-ORDER November 18, 2024 10:22a m 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, 2024 8:23a m Reason for Visit Admit Date Neoplasm of uncertain behavior of skin A pril 2024 1:30pm Neoplasm of uncertain behavior of skin A pril 2024 8:29am Benign neoplasm of skin of scalp October 122024 2:14pm Encounter for routine gynecological exam ination December 01, 2024 8:23am Chief Complaint Admit Date AUB September 06, 2024 7:47am SPOT ON HEAD October 13, 2024 1:30 pm post op lesion October 26, 2024 2:1 4pm LABS November 04, 2024 11: 08am LABS November 09, 2024 12: 20pm LABS November 11, 2024 9:33am E-ORDER November 18, 2024 10:22a m 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, 2024 8:23a m LABS December 01, 2024 8:57a m Reason for Visit Admit Date Neoplasm of uncertain behavior of skin A pril 2024 1:30pm Neoplasm of uncertain behavior of skin A pril 2024 8:29am Benign neoplasm of skin of scalp October 122024 2:14pm Brittle nails December 01, 2024 8:23a m Enlarged thyroid December 01, 2024 8:23a m Fatigue December 01, 2024 8:23a m Hair thinning December 01, 2024 8:23a m Encounter for routine gynecological exam ination December 01, 2024 8:23am Chief Complaint Admit Date AUB September 06, 2024 7:47am SPOT ON HEAD October 13, 2024 1:30 pm post op lesion October 26, 2024 2:1 4pm LABS November 04, 2024 11: 08am LABS November 09, 2024 12: 20pm LABS November 11, 2024 9:33am E-ORDER November 18, 2024 10:22a m 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, 2024 8:23a m LABS December 01, 2024 8:57a m ENLARGED THYROID December 08, 2024 2:57p m Chief Complaint Admit Date AUB September 06, 2024 7:47am SPOT ON HEAD October 13, 2024 1:30 pm post op lesion October 26, 2024 2:1 4pm LABS November 04, 2024 11: 08am LABS November 09, 2024 12: 20pm LABS November 11, 2024 9:33am E-ORDER November 18, 2024 10:22a m 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, 2024 8:23a m LABS December 01, 2024 8:57a m ENLARGED THYROID December 08, 2024 2:57p m genital lesion December 15, 2024 1:55p m Reason for Visit Admit Date Neoplasm of uncertain behavior of skin A pril 2024 1:30pm Neoplasm of uncertain behavior of skin A pril 2024 8:29am Benign neoplasm of skin of scalp October 122024 2:14pm Brittle nails December 01, 2024 8:23a m Enlarged thyroid December 01, 2024 8:23a m Fatigue December 01, 2024 8:23a m Hair thinning December 01, 2024 8:23a m Encounter for routine gynecological exam ination December 01, 2024 8:23am Inclusion cyst December 15, 2024 1:55p m Possible exposure to STI December 15, 2024 1:55pm Chief Complaint Admit Date SPOT ON HEAD October 13, 2024 1:30 pm post op lesion October 26, 2024 2:1 4pm LABS November 04, 2024 11: 08am LABS November 09, 2024 12: 20pm LABS November 11, 2024 9:33am E-ORDER November 18, 2024 10:22a m 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, 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 8:23a m LABS December 01, 2024 8:57a m ENLARGED THYROID December 08, 2024 2:57p m genital lesion December 15, 2024 1:55p m Additional Source Comments INFORMATION SOURCE (unrecogn ized section and content) DATE CREATED AUTHOR 01/06/2018 [facility] DATE CREATED AUTHOR AUTHOR'S ORGANIZ ATION 01/19/2018 [facility] DATE CREATED AUTHOR AUTHOR'S ORGANIZ ATION 03/16/2022 [facility] DATE CREATED AUTHOR AUTHOR'S ORGANIZ ATION 02/21/2023 [facility] DATE CREATED AUTHOR AUTHOR'S ORGANIZ ATION 02/21/2023 [facility] DATE CREATED AUTHOR AUTHOR'S ORGANIZ ATION 07/06/2023 [facility] DATE CREATED AUTHOR AUTHOR'S ORGANIZ ATION 09/22/2023 [facility] DATE CREATED AUTHOR AUTHOR'S ORGANIZ ATION 02/20/[address] [facility] DATE CREATED AUTHOR AUTHOR'S ORGANIZ ATION 12/18/2024 [facility] DATE CREATED AUTHOR AUTHOR'S ORGANIZ ATION 02/02/2025 [facility] Reason for Visit (unrecogniz ed section and [...] due on 06/17/2022equential Influenza Vaccine(1) due on 3COVID-19 Vaccine( season) due on 03/14/2023 Reason Comments Vaginal [...] Care Teams (unrecognized sec tion and content) Team Status: Active Member Role Status Dates Dr. Vilma Min MD Primary Care Provider Active Team Status: Active Member Role Status Dates Dr. Vilma Min MD Primary Care Provider Active Start: August 17, 2024 Dr. Per Fairchild MD Attending Provider Active Start: August 17, 2024 Team Status: Active Member Role Status Dates Dr. Vilma Min MD Primary Care Provider Active Start: 2024 Dr. Per Fairchild MD Attending Provider Active Start: 2024 Team Status: Inactive Member Role Status Dates Dr. Vilma Min MD Primary Care Provider Active Start: September 06, 2024 End: September 06, 2024 Kirstie Carter COMFORT FILLER, COMFORT FILLER-C Attending Provider Active Start: September 06, 2024 End: September 06, 2024 Kirstie Catrer NP COMFORT FILLER-C Referring Provider Active Start: September 06, 2024 End: September 06, 2024 Team Status: Active Member Role Status Dates Dr. Per Fairchild MD Attending Provider Active Start: September 27, 2024 Team Status: Active Member Role Status Dates Health Risk Assessment Attending Provider Active Start: October 11, 2024 Team Status: Inactive Member Role Status Dates Dr. Olinda Berrios MD Attending Provider Active Start: October 13, 2024 End: October 13, 2024 Team Status: Inactive Member Role Status Dates Dr. Olinda Berrios MD Attending Provider Active Start: October 15, 2024 End: October 15, 2024 Dr. Olinda Berrois MD Referring Provider Active Start: October 15, 2024 End: October 15, 2024 Dr. Vilma Min MD Primary Care Provider Active Start: October 15, 2024 End: October 15, 2024 Team Status: Active Member Role Status Dates Dr. Olinda Berrios MD Attending Provider Active Start: October 15, 2024 Dr. Olinda Berrios MD Referring Provider Active Start: October 15, 2024 Dr. Olinda Berrios MD Other Provider Active St art: October 15, 2024 Dr. Vilma Min MD Primary Care Provider Active Start: October 15, 2024 Team Status: Inactive Member Role Status Dates Dr. Olinda Berrios MD Attending Provider Active Start: October 26, 2024 End: October 26, 2024 Dr. Vilma Min MD Primary Care Provider Active Start: October 26, 2024 End: October 26, 2024 Dr. Vilma Min MD Referring Provider Active Start: October 26, 2024 End: October 26, 2024 Team Status: Inactive Member Role Status Dates Dr. Vilma Min MD Primary Care Provider Active Start: November 04, 2024 End: November 04, 2024 NEELAM Grove Attending Provider Active Start: November 04, 2024 End: November 04, 2024 Team Status: Inactive Member Role Status Dates Dr. Vilma Min MD Primary Care Provider Active Start: November 09, 2024 End: November 09, 2024 Kirstie Carter COMFORT FILLER, COMFORT FILLER-C Attending Provider Active Start: November 09, 2024 End: November 09, 2024 Team Status: Inactive Member Role Status Dates Dr. Vilma Min MD Primary Care Provider Active Start: November 11, 2024 End: November 11, 2024 Rae Nogueira CNM Attending Provider Active S tart: November 11, 2024 End: November 11, 2024 Team Status: Inactive Member Role Status Dates Dr. Vilma Min MD Primary Care Provider Active Start: November 18, 2024 End: November 18, 2024 Rae Nogueira CNM Attending Provider Active S tart: November 18, 2024 End: November 18, 2024 Rae Nogueira CNM Referring Provider Active S tart: November 18, 2024 End: November 18, 2024 Team Status: Active Member Role Status Dates Dr. Vilma Min MD Primary Care Provider Active Start: November 22, 2024 Rae Nogueira CNM Attending Provider Active S tart: November 22, 2024 Rae Nogueira CNM Referring Provider Active S tart: November 22, 2024 Electrician Technician Relationship Specialty Start Date End Date [place], Katrin Hernandez MANAGER CENTER PCP - General Nurse Practitioner 05/07/19 Electrician Technician Relationship Specialty Start Date End Date [place], Katrin Hernandez MANAGER CENTER PCP - General Nurse Practitioner 05/07/19 Electrician Technician Relationship Specialty Start Date End Date Silvano Grace MD [address] [place] [id number] PCP - General Family Medicine 10/29/22 Electrician Technician Relationship Specialty Start Date End Date Silvano Grace MD [address] [place] [id number] PCP - General Family Medicine 10/29/22 Electrician Technician Relationship Specialty Start Date End Date Silvano Grace MD [address] [address] PCP - General Family Medicine 10/29/22 Electrician Technician Relationship Specialty Start Date End Date Silvano Grace MD [address] [address] PCP - General Family Medicine 10/29/22 Electrician Technician Relationship Specialty Start Date End Date Silvano Grace MD [address] [address] PCP - General Family Medicine 10/29/22 Electrician Technician Relationship Specialty Start Date End Date Silvano Grace MD [address] [place] [id number] PCP - General Family Medicine 10/29/22 Electrician Technician Relationship Specialty Start Date End Date Silvano Grace MD [address] [address] PCP - General Family Medicine 10/29/22 Electrician Technician Relationship Specialty Start Date End Date Silvano Grace MD [address] [address] PCP - General Family Medicine 10/29/22 Electrician Technician Relationship Specialty Start Date End Date Silvano Grace MD [address] [address] PCP - General Family Medicine 10/29/22 Dell Wiggins PA-C [address] [place] [phone] Physician Forest Management Teacher Physician Forest Management Teacher 12/18/23 Team Status: Inactive Member Role Status Dates Dr. Vilma Min MD Primary Care Provider Active Start: July 01, 2024 End: July 01, 2024 SARAH Packer Attending Provider Active Start: July 01, 2024 End: July 01, 2024 SARAH Packer Referring Provider Active Start: July 01, 2024 End: July 01, 2024 Team Status: Inactive Member Role Status Dates Dr. Vilma Min MD Primary Care Provider Active Start: November 22, 2024 End: November 22, 2024 Rae Nogueira CNM Attending Provider Active S tart: November 22, 2024 End: November 22, 2024 Rae Nogueira CNM Referring Provider Active S tart: November 22, 2024 End: November 22, 2024 Team Status: Inactive Member Role Status Dates Dr. Vilma Min MD Primary Care Provider Active Start: December 01, 2024 End: December 01, 2024 Dr. Vilma Min MD Referring Provider Active Start: December 01, 2024 End: December 01, 2024 Dr. Imelda Metzger DO Attending Provider Activ e Start: December 01, 2024 End: December 01, 2024 Team Status: Inactive Member Role Status Dates Dr. Vilma Min MD Primary Care Provider Active Start: December 01, 2024 End: December 01, 2024 Dr. Imelda Metzger DO Attending Provider Activ e Start: December 01, 2024 End: December 01, 2024 Team Status: Inactive Member Role Status Dates Dr. Vilma Min MD Primary Care Provider Active Start: December 08, 2024 End: December 08, 2024 Dr. Imelda Metzger DO Attending Provider Activ e Start: December 08, 2024 End: December 08, 2024 Dr. Imelda Metzger DO Referring Provider Activ e Start: December 08, 2024 End: December 08, 2024 Team Status: Active Member Role Status Dates Dr. Vilma Min MD Primary Care Provider Active Start: December 10, 2024 Dr. Per Fairchild MD Attending Provider Active Start: December 10, 2024 Team Status: Inactive Member Role Status Dates Dr. Vilma Min MD Primary Care Provider Active Start: December 15, 2024 End: December 15, 2024 Dr. Vilma Min MD Referring Provider Active Start: December 15, 2024 End: December 15, 2024 NEELAM Grove Attending Provider Active Start: December 15, 2024 End: December 15, 2024 Team Status: Active Member Role Status Dates Dr. Vilma Min MD Primary Care Provider Active Start: December 15, 2024 NEELAM Grove Attending Provider Active Start: December 15, 2024 NEELAM Grove Referring Provider Active Start: December 15, 2024 Team Status: Inactive Member Role Status Dates Dr. Vilma Min MD Primary Care Provider Active Start: December 15, 2024 End: December 15, 2024 NEELAM Grove Attending Provider Active Start: December 15, 2024 End: December 15, 2024 NEELAM Grove Referring Provider Active Start: December 15, 2024 End: December 15, 2024 Team Status: Active Member Role/Relationship Status Dates Dr. Vilma Min MD Primary Care Provider Active Team Status: Active Member Role/Relationship Status Dates Health Risk Assessment Attending Provider Active Start: October 11, 2024 Team Status: Inactive Member Role/Relationship Status Dates Dr. Olinda Berrios MD Attending Provider Active Start: October 13, 2024 End: October 13, 2024 Team Status: Inactive Member Role/Relationship Status Dates Dr. Olinda Berrios MD Attending Provider Active Start: October 15, 2024 End: October 15, 2024 Dr. Olinda Berrios MD Referring Provider Active Start: October 15, 2024 End: October 15, 2024 Dr. Vilma Min MD Primary Care Provider Active Start: October 15, 2024 End: October 15, 2024 Team Status: Active Member Role/Relationship Status Dates Dr. Olinda Berrios MD Attending Provider Active Start: October 15, 2024 Dr. Olinda Berrios MD Referring Provider Active Start: October 15, 2024 Dr. Olinda Berrios MD Other Provider Active St art: October 15, 2024 Dr. Vilma Min MD Primary Care Provider Active Start: October 15, 2024 Team Status: Inactive Member Role/Relationship Status Dates Dr. Olinda Brerios MD Attending Provider Active Start: October 26, 2024 End: October 26, 2024 Dr. Vilma Min MD Primary Care Provider Active Start: October 26, 2024 End: October 26, 2024 Dr. Vilma Min MD Referring Provider Active Start: October 26, 2024 End: October 26, 2024 Team Status: Inactive Member Role/Relationship Status Dates Dr. Vilma Min MD Primary Care Provider Active Start: November 04, 2024 End: November 04, 2024 Margaret Santizo NP-C Attending Provider Active Start: November 04, 2024 End: November 04, 2024 Team Status: Inactive Member Role/Relationship Status Dates Dr. Vilma Min MD Primary Care Provider Active Start: November 09, 2024 End: November 09, 2024 Kirstie Carter NP COMFORT FILLER-C Attending Provider Active Start: November 09, 2024 End: November 09, 2024 Team Status: Inactive Member Role/Relationship Status Dates Dr. Vilma Min MD Primary Care Provider Active Start: November 11, 2024 End: November 11, 2024 Rae Nogueria CNM Attending Provider Active S tart: November 11, 2024 End: November 11, 2024 Team Status: Inactive Member Role/Relationship Status Dates Dr. Vilma Min MD Primary Care Provider Active Start: November 18, 2024 End: November 18, 2024 Rae Nogueira CNM Attending Provider Active S tart: November 18, 2024 End: November 18, 2024 Rae Nogueira CNM Referring Provider Active S tart: November 18, 2024 End: November 18, 2024 Team Status: Inactive Member Role/Relationship Status Dates Dr. Vilma Min MD Primary Care Provider Active Start: November 22, 2024 End: November 22, 2024 Rae Nogueira CNM Attending Provider Active S tart: November 22, 2024 End: November 22, 2024 Rae Nogueira CNM Referring Provider Active S tart: November 22, 2024 End: November 22, 2024 Team Status: Inactive Member Role/Relationship Status Dates Dr. Vilma Min MD Primary Care Provider Active Start: December 01, 2024 End: December 01, 2024 Dr. Vilma Min MD Referring Provider Active Start: December 01, 2024 End: December 01, 2024 Dr. Imelda Metzger DO Attending Provider Activ e Start: December 01, 2024 End: December 01, 2024 Team Status: Inactive Member Role/Relationship Status Dates Dr. Vilma Min MD Primary Care Provider Active Start: December 01, 2024 End: December 01, 2024 Dr. Imelda Metzger DO Attending Provider Activ e Start: December 01, 2024 End: December 01, 2024 Team Status: Inactive Member Role/Relationship Status Dates Dr. Vilma Min MD Primary Care Provider Active Start: December 08, 2024 End: December 08, 2024 Dr. Imelda Metzger DO Attending Provider Activ e Start: December 08, 2024 End: December 08, 2024 Dr. Imelda Metzger DO Referring Provider Activ e Start: December 08, 2024 End: December 08, 2024 Team Status: Active Member Role/Relationship Status Dates Dr. Vilma Min MD Primary Care Provider Active Start: December 10, 2024 Dr. Per Fairchild MD Attending Provider Active Start: December 10, 2024 Team Status: Inactive Member Role/Relationship Status Dates Dr. Vilma Min MD Primary Care Provider Active Start: December 15, 2024 End: December 15, 2024 Dr. Vilma Min MD Referring Provider Active Start: December 15, 2024 End: December 15, 2024 NEELAM Grove Attending Provider Active Start: December 15, 2024 End: December 15, 2024 Team Status: Inactive Member Role/Relationship Status Dates Dr. Vilma Min MD Primary Care Provider Active Start: December 15, 2024 End: December 15, 2024 NEELAM Grove Attending Provider Active Start: December 15, 2024 End: December 15, 2024 NEELAM Grove Referring Provider Active Start: December 15, 2024 End: December 15, 2024 Team Status: Inactive Member Role/Relationship Status Dates Dr. Vilma Min MD Primary Care Provider Active Start: January 26, 2025 End: January 26, 2025 SARAH Smith Attending Provider Active Star t: January 26, 2025 End: January 26, 2025 SARAH Smith Referring Provider Active Star t: January 26, 2025 End: January 26, 2025 FOR RECORDS PERTAINING TO PATIENTS WHO ARE [...] BE BASED ON THE PRIMARY CLINICAL RECORDS. [facility]. provides no warranty or guarantee of the accuracy or completeness of information in this document.
== END | disposition home or self-care (01) ==
LOC: LAB 10:16
PROVIDERS: PCP Internal Medicine; Visit Provider Nurse Practitioner Family
DX: Z87.59 Personal history of other complications of pregnancy, childbirth and the puerperium (principal)
CPT/HCPCS: 36415; 84702

== ENCOUNTER → 2025-04-01 | Outpatient (CLI) | payer OTHER, SELFPAY ==
[2025-04-01 11:17] LABS: hCG Titer Quant., Serum 27 mIU/mL (<9 non-preg)
== END | disposition home or self-care (01) ==
PROVIDERS: PCP Internal Medicine; Visit Provider Advanced Practice Midwife
DX: N91.2 Amenorrhea, unspecified (principal)
CPT/HCPCS: 36415; 84702

== ENCOUNTER → 2025-04-03 | Outpatient (CLI) | payer OTHER, SELFPAY ==
--- OUTSIDE RECORDS SUMMARY | 2025-04-03 07:43 | XMS RPT_ITS | CCD ---
Author Organization [facility] Care Team Providers Care Hand Paint Mixer Name Role Phone Kartik, Nelly Unavailable Unavailable [...] Unavail able Katrin Pearson Primary Care Provider Naif, Carole Unavailable Unavailable None, No PCP Unavailable Unavailable None, No PCP Unavailable Unavailable Unavailable Unavailable Naif DO, Carole Unavailable Unavailable None, No PCP Unavailable Unavailable Spring Katrin RUSSELL Primary Care Provider Unavailable Unavailable Ms. Jackie Barriga Attending Unavaila ble PCP, Pt States None Referring Unavailable FRIED, CNM, ELECTRIC MOTORMAN NIKKI DHAVAL Attending Unava ilable FRIED, CNM, ELECTRIC MOTORMAN NIKKI DHAVAL Referring Unava ilable FRIED, CNM, ELECTRIC MOTORMAN NIKKI DHAVAL Attending Unava ilable FRIED, CNM, ELECTRIC MOTORMAN NIKKI DHAVAL Referring Unava ilable MICHELE THORNTON Attending Unavailable PCP, Pt States None Referring Unavailable Silvano Grace MD Primary Care Pro vider Unavailable Primary Care Provider Unavailabl e NIKKI STEVESN Attending Unavailable SANJAY, SILVANO RADHA MOUNIR Primary [...] Primary Care Provider Carisa Montalvo Attending Provider [phone] Carisa Montalvo Referring Provider Dr. Per Fairchild MD Attending Provider Emma DRY FOLDER CLOTH-CKirstie Attending Provider Emma DRY FOLDER CLOTH-CKirstie Referring Provider [phone] Assessment, Health Risk Attending Provider Unava ilable [...] Mega Marvin DO, Dr. Segura Referring Provider Sukhdev DOLL-Margaret Rodriguez Referring Provider SANJAY, SILVANO RADHA MOUNIR Primary [...] Dr. Esparza Primary Care Provider [phone] Devorah COLLINS, Dr. Albarado Attending Provider [phone] Pako COLLINS, Dr. Esparza Primary Care Provider [phone] Kirstie Bhakta Attending Provider Devorah COLLINS, Dr. Albarado Attending Provider Brenda Rutherford Attending Provider Brenda Rutherford Referring Provider Kirstie Carter NP Attending Unavailable SANJAY, SILVANO Referring Unavailable Walhonding, Vilma Primary Care Unavailable Pako, Vilma Primary Care Unavailable Rae Nogueira Attending Unavailable Rae Nogueira Referring Unavailable Per Fairchild Attending Unavailable Assessment, Health Risk Attending Unavaila ble [place]honding, Vilma Primary Care Unavailable Rae Nogueira Attending Unavailable Pako, Vilma Primary Care Unavailable Mickleton DRY FOLDER CLOTH, Kirstie Attending Unavailable Per Fairchild Attending Unavailable [place], Vilma Primary Care Unavailable Jacinda, Derrell Attending Unavailable Pako, Vilma Primary Care Unavailable Rae Nogueira Attending Unavailable [place], Vilma Primary Care Unavailable Per Fairchild Attending Unavailable Pako, Vilma Primary Care Unavailable Brenda Crawford Attending Unavailable Brenda Crawford Referring Unavailable [place], Vilma Primary Care Unavailable Margaret Santizo Attending Unavailable Pako, Vilma Primary Care Unavailable Pako, Vilma Primary Care Unavailable Carisa Mohan Attending Unavailable Carisa Mohan Referring Unavailable Mickleton DRY FOLDER CLOTH, Kirstie Attending Unavailable Emma DRY FOLDER CLOTH, Kirstie Referring Unavailable Walhonding, Vilma Primary Care Unavailable SANJAY, SILVANO Primary Care Unavailable PalmerAna Paula Attending Unavailable Palmer, Ana Paula Referring Unavailable Mickleton DRY FOLDER CLOTH, Kirstie Attending Unavailable SANJAY, SILVANO Primary Care Unavailable Emma DRY FOLDER CLOTH, Kirstie Referring Unavailable Margaret Santizo Attending Unavailable [place], Vilma Primary Care Unavailable SANJAY, SILVANO Referring Unavailable SANJAY, SILVANO Primary Care Unavailable Pako, Vilma Attending Unavailable Ghazoul, Olinda Attending Unavailable Pako, Vilma Referring Unavailable Walhonding, Vilma Primary Care Unavailable [place], Vilma Primary Care Unavailable Imelda Metzger Attending Unavailabl e [place], Vilma Primary Care Unavailable Imelda Metzger Attending Unavailabl e Imelda Metzger Referring Unavailabl e Ghazoul, Olinda Attending Unavailable Ghazoul, Olinda Referring Unavailable Pako, Vilma Primary Care Unavailable Margaret Santizo Attending Unavailable Margaret Santizo Referring Unavailable Pako, Vilma Primary Care Unavailable Pako, Vilma Primary Care Unavailable Carisa Mohan Attending Unavailable Per Fairchild Attending Unavailable Pako, Vilma Primary Care Unavailable Margaret Santizo Attending Unavailable Walhonding, Vilma Referring Unavailable [place], Vilma Primary Care Unavailable [place], Vilma Referring Unavailable Ghazoul, Olinda Attending Unavailable [place]hond[place], Vilma Referring Unavailable [place], Vilma Primary Care Unavailable Imelda Metzger Attending Unavailabl e Ghazoul, Olinda Referring Unavailable Ghazoul, Olinda Consulting Unavailable Ghazoul, Olinda Attending Unavailable [place]hond[place], Vilma Primary Care Unavailable [place]hond[place], Vilma Referring Unavailable [place], Vilma Primary Care Unavailable Gabriella Larry Attending Unavailable Brenda Crawford Attending Unavailable Pako, Vilma Referring Unavailable Pako, Vilma Primary Care Unavailable SANJAY, SILVANO Referring Unavailable SANJAY, SILVANO Primary Care Unavailable Carisa Mohan Attending Unavailable Pako, Vilma Referring Unavailable [place]honding, Vilma Primary Care Unavailable Imelda Metzger Attending Unavailabl Margaret Harmon Attending Unavailable [place], Vilma Referring Unavailable [place], Vilma Primary Care Unavailable Ghazoul, Olinda Attending Unavailable Kirstie Carter NP Attending Unavailable SANJAY, SILVANO Primary Care Unavailable SANJAY, SILVANO Referring Unavailable [place]ing, Vilma Primary Care Unavailable Rae Nogueira Attending Unavailable Rae Nogueira Referring Unavailable Allergies Allergy Classification Reported Allergen(s) Allergy Type Date of Onset Reaction(s) Facility Amoxicillin / Clavulanate (3 sources) Amoxicillin / Clavulanate; Translations: [Augmentin] Drug Allergy 0 Diarrhea [facility] (7 sources) amoxicillin / clavulanate; Translations: [Augmentin] Drug Allergy Diarrhea [facility] (1 source) No Known Allergies; Translations: [No Known Allergies] Propensity to adverse reactions to drug (disorder) [facility] (19 sources) Amoxicillin / Clavulanate; Translations: [AMOXICILLIN-POT CLAVULANATE] Drug Allergy 0 Diarrhea [facility] (10 sources) Amoxicillin Drug Allergy 5 [facility] (10 sources) Clavulanate Drug Allergy 5 [facility] (1 source) Amoxicillin Drug Allergy 5 [facility] (1 source) Clavulanate Drug Allergy 5 [facility] Medications Current Medications Medication Drug Class(es) Dates Sig (Normalized) Sig (Original) 21 day ethinyl estradiol 0.842705 mg/hr / etonogestrel 0.005 mg/hr vaginal system [...] tablet Discontinued 1 {tbl} PO DAILY 84 0 November 23, 2024 9:27am December 01, 2024 [...] Sig (Original) clotrimazole 10 mg/ml topical cream (20 sources) Azole Antifungal Start: 03-05-2024 End: 03-18-2024 [...] mcg (24)/10 mcg (2) Tab Norgestimate-Ethinyl Estradiol (14 sources) Progestin, Estrogen Start: 05-12-2024 End: 05-12-2024 Norgestimate-Ethinyl Estradiol (Tri-Lo-Daphne) 0.18/0.215/0.25 mg-25 mcg tablet Discontinued 1 {tbl} PO daily May 12, 2024 12:00am May 12, 2024 2:34pm Start: 02-09-2024 take 1 tablet by shade th once daily norgestimate-ethinyl estradioL (Czu-Fj-Wcdlcvvq) 0.18/0.215/0.25 mg-25 mcg per tablet Take 1 (one) tablet by mouth daily . 30 tablet 11 02/09/2024 Active Start: 12-09-2023 End: 02-07-2024 take 1 tablet by mouth once daily norgestimate-ethinyl estradioL (Mkb-Em-Bufflhuo) 0.18/0.215/0.25 mg-25 mcg per tablet Take 1 (one) tablet by mouth daily . 30 tablet 1 12/09/2023 02/07/2024 Discontinued (Reorder (Suppress CancelRx Message to Pharmacy)) Start: 12-09-2023 take 1 tablet by shade th once daily norgestimate-ethinyl estradioL (Rcq-Dc-Qixxadhg) 0.18/0.215/0.25 mg-25 mcg per tablet Take 1 (one) tablet by mouth daily . 30 tablet 1 12/09/2023 Active Start: 11-13-2023 End: 12-06-2023 take 1 tablet by mouth once daily norgestimate-ethinyl estradioL (Oke-Ep-Lcquetet) 0.18/0.215/0.25 mg-25 mcg per tablet Take 1 (one) tablet by mouth daily . 30 tablet 1 11/13/2023 12/06/2023 Discontinued (Reorder (Suppress CancelRx Message to Pharmacy)) fluconazole 150 mg oral tablet (10 sources) Azole Antifungal Start: 04-02-2024 End: 05-12-2024 Fluconazole 150 mg tablet Discontinued 150 mg PO Every 3 Days 2 0 April 02, 2024 12:00am May 12, 2024 2:22pm may repeat second dose 72 hrs after first dose if symptoms persist hydrocortisone 25 mg/ml topical cream (1 source) Corticosteroid Start: 10-29-2022 End: 05-02-2023 hydrocortisone (ANUSOL-HC) 2.5 % rectal cream Indications: Hemorrhoids, unspecified hemorrhoid type Insert into the rectum 2 (two) times a day . 30 g 0 10/29/2022 05/02/2023 Discontinued Lactobacillus Acidophilus 10 billion cell capsule (10 sources) Start: 03-22-2024 End: 03-29-2024 Lactobacillus Acidophilus 10 billion cell capsule Discontinued 66026 NMA PO TWICE A DAY 14 7 0 March 22, 2024 12:00am March 28, 2024 12:00am March 29, 2024 12:04am Start: 03-22-2024 End: 03-29-2024 Lactobacillus Acidophilus 10 billion cell capsule Discontinued 07163 NMA PO TWICE A DAY 14 7 March 22, 2024 12:00am March 28, 2024 12:00am March 29, 2024 12:04am levonorgestrel 0.784267 mg/hr intrauterine system (8 sources) Progestin, Progestin-containing Intrauterine Device Liletta (52 MG) 19.5 MCG/DAY IUD Quantity: 0 Refills: 0 Ordered: 15-Dec-2020 DO Active levonorgestreL ( LILETTA) 20.1 mcg/24 hrs (6 yrs) 52 mg IUD IUD 1 each by Intrauterine route once . 0 Active metoclopramide 5 mg oral tablet (10 sources) Dopamine-2 Receptor Antagonist Start: 05-22-2024 End: 06-05-2024 take 1 tablet by mouth 30 minutes before mealtime Metoclopramide Hcl 5 mg tablet Discontinued 5 mg PO before meals 42 14 0 May 22, 2024 1:00am June 04, 2024 1:00am June 05, 2024 1:16am administer 30 minutes before meals metroNIDAZOLE 0.01 mg/mg topical gel (10 sources) Nitroimidazole Antimicrobial Start: 05-24-2024 End: 10-15-2024 [...] hours PRN nausea Quantity: 20 Refills: 3 Socorro Lisbettt Start : 29-Mar-2020 Active pantoprazole 20 mg delayed release oral tablet (10 sources) Proton Pump Inhibitor Start: 03-22-2024 End: [...] 1 TABLET DAILY. Quantity: 30 Refills: 11 Carole Mancuso DO Start : 01-Mar-2020 Active PNV Plus Multivitamin 27-1 MG TABS (2 sources) Start: 03-01-2020 PNV Plus Multivitamin 27-1 MG TABS TAKE 1 TABLET DAILY. Quantity: 30 Refills: 11 Lisbet Mancuso DOtt Start : 01-Mar-2020 Active PNV Plus Multivitamin TABS (2 sources) PNV Plu s Multivitamin TABS Refills: 0 Active PNV Plus Multivitamin TABS (1 source) PNV Plu s Multivitamin TABS Refills: 0 DO Active rifAXIMin 550 mg oral tablet (10 sources) Rifamycin Antibacterial Start: 03-22-2024 End: 05-12-2024 take 1 tablet by mouth three times daily Rifaximin 550 mg tablet Discontinued 550 mg PO THREE TIMES A DAY 42 14 2 March 22, 2024 12:00am May 12, 2024 2:22pm IBS-D sulfamethoxazole 400 mg / trimethoprim 80 mg oral tablet (10 sources) Dihydrofolate Reductase Inhibitor Antibacterial, Sulfonamide Antimicrobial [...] 06-17-2023 06-17-2023 Episodic Comment on above: 11/28/2020; MICHEAL; Other and unspecified benign neoplasm (18 sources) Benign neoplasm of skin of scalp; [...] 09-18-2023 09-18-2023 Chronic Other female genital disorders (10 sources) Abnormal uterine bleeding; Translations: [Abnormal uterine and vaginal bleeding, unspecified] 08-30-2024 Chronic Other female genital disorders (1 source) Abnormal uterine and vaginal bleeding, unspecified; Translations: [Abnormal uterine and vaginal bleeding, unspecified] Onset: 09-16-2024 Chronic Other gastrointestinal disorders (10 sources) Irritable bowel syndrome; Translations: [Irritable bowel syndrome without diarrhea] 05-24-2024 Chronic Other gastrointestinal disorders (1 source) Irritable bowel syndrome without diarrhea; Translations: [Irritable bowel syndrome, unspecified] Onset: 06-08-2024 Chronic Other gastrointestinal disorders (8 sources) Chronic constipation; Translations: [Constipation, unspecified] Episodic Other gastrointestinal disorders (10 sources) Small bowel bacterial overgrowth syndrome; Translations: [Small intestinal bacterial overgrowth (SIBO)] 03-22-2024 Episodic Other non-traumatic joint disorders (3 sources) Pain in wrist; Translations: [Pain in joint, forearm] Episodic Other skin disorders (1 source) Skin tag; Translations: [Skin tag] Episodic Other skin disorders (13 sources) Trachyonychia; Translations: [Nail dystrophy] 12-01-2024 Episodic Other skin disorders (13 sources) Loss of hair; Translations: [Nonscarring hair loss, unspecified] 12-01-2024 Episodic Other skin disorders (8 sources) Epidermoid cyst; Translations: [Epidermal cyst] 12-15-2024 Episodic Other upper respiratory infections (12 sources) Acute sinusitis, unspecified; Translations: [Acute upper respiratory infection] Onset: 02-18-2024 Episodic Residual codes; unclassified (1 source) Gestation period, 20 weeks; Translations: [20 weeks gestation of ] Episodic Residual codes; unclassified (1 source) Gestation period, 27 weeks; Translations: [ with 27 completed weeks gestation] Episodic Residual codes; unclassified (1 source) H/O: miscarriage; Translations: [Personal history of other complications of , childbirth and the puerperium] 02-03-2025 Episodic Residual codes; unclassified (1 source) Personal history of other complications of , childbirth and the puerperium; Translations: [Personal history of other complications of , childbirth and the puerperium] Onset: 02-08-2025 Episodic Spondylosis; intervertebral disc disorders; other back problems (1 source) Dorsalgia, unspecified; Translations: [Dorsalgia, unspecified] Onset: 01-31-2025 Episodic Thyroid disorders (14 sources) Goiter; Translations: [Nontoxic goiter, unspecified] Onset: 12-13-2024 12-01-2024 Chronic Viral infection (6 sources) Other specified viral infection; Translations: [Disease caused by 2019-nCoV] Episodic Past or Other Problems Problem Classification Problem Date Documented Da te Episodic/Chronic Abdominal pain (13 sources) Abdominal discomfort; [...] initial encounter] Onset: 07-24-2021 Episodic Gastrointestinal hemorrhage (11 sources) Rectal hemorrhage; Translations: [Hemorrhage of anus and rectum] Onset: 07-28-2024 07-01-2024 Episodic Genitourinary symptoms and ill-defined conditions (2 sources) Other symptoms and signs involving the genitourinary system; Translations: [Other symptoms and signs involving the genitourinary system] Onset: 10-29-2022 Episodic Hemorrhage during ; abruptio placenta; placenta previa (1 source) Threatened ; Translations: [Threatened ] Onset: 11-16-2024 Episodic Hemorrhoids (12 sources) Hemorrhoids; Translations: [Unspecified hemorrhoids] Onset: 10-29-2022 05-02-2023 Episodic Immunizations and screening for infectious disease (20 sources) Patient encounter status; Translations: [Screening examination for venereal disease] Onset: 06-17-2019 06-17-2019 Episodic Malaise and fatigue (14 sources) Fatigue; Translations: [Other fatigue] Onset: 12-01-2024 12-01-2024 Episodic Neoplasms of unspecified nature or uncertain behavior (20 sources) Neoplasm of uncertain behavior of skin; Translations: [Neoplasm of uncertain behavior of skin] Onset: 11-15-2024 10-13-2024 Episodic Other and unspecified benign neoplasm (12 [...] Translations: [Pleurodynia] Onset: 05-02-2023 05-02-2023 Episodic Other and delivery including normal (20 sources) Delivery normal; Translations: [ care status] Onset: 11-09-2024 11-23-2024 Episodic Comment on above: 10/03/2020-39 weeks, vaginal, male, #7 15oz 01/10/2018_40weeks_Female_7# 4oz; Other screening for suspected conditions (not mental disorders or infectious disease) (9 sources) Urine test negative; Translations: [ examination or test, negative result] Onset: 06-17-2023 06-17-2023 Episodic Other skin disorders (1 source) Epidermal cyst; Translations: [Epidermal cyst] Onset: 12-15-2024 Episodic Other skin disorders (1 source) Nail dystrophy; Translations: [Nail dystrophy] Onset: 12-01-2024 Episodic Other skin disorders (1 source) Nonscarring hair loss, unspecified; Translations: [Nonscarring hair loss, unspecified] Onset: 12-01-2024 Episodic Residual codes; unclassified (1 source) Gestation period, 12 weeks; Translations: [ state, incidental] Episodic Spontaneous (10 sources) Miscarriage; Translations: [Complete or unspecified spontaneous without complication] Onset: 11-25-2024 11-23-2024 Episodic Comment on above: 10/2024 Unclassified (14 sources) Patient encounter status; Translations: [Routine gynecological examination] Onset: 05-17-2019 05-17-2019 Unclassified (8 sources) Finding of menstrual bleeding; Translations: [Menstruation] Comment on above: Onset age 15 years; NEGATED: Highlighted row has not occurred!Residual codes; unclassified (13 sources) Disease Episodic Results Test Name Value Interpretation Reference Range Facility hCG Titer Quant., Serumon HCG QUANT. 27 mIU/mL High <9 non-preg [facility] Comment on above: Result Comment: Gest ational Age 0.2-1 Week: 5-50 mIU/mL 1-2 Weeks: 50-500 mIU/mL 2-3 Weeks: 100-5000 mIU/mL 3-4 Weeks: 500-10,000 mIU/mL 4-5 Weeks:1000-50,000 mIU/mL 5-6 Weeks: 10,000-100,000 mIU/mL 6-8 Weeks: 15,000-200,000 mIU/mL 2-3 Months:10,000-100,000 mIU/mL Performed By: #### L 501.0100, L500.4100, L501.9520, L503.0106, L506.0400, L506.1001 #### [facility] [place], [address] Serum human chorionic gonado tropin detection for pregnancyOrdered By: Margaret Santizo on 02-03-2025 HCG ( test) Ql < 1 mIU/mL <9 [facility] Comment on above: Gestational Age0.2-1 Week: 5-50 mIU/mL1-2 Weeks: 50-500 mIU/mL2-3 Weeks: 100-5000 mIU/mL3-4 Weeks: 500-10,000 mIU/mL4-5 Weeks:1000-50,000 mIU/mL5-6 Weeks: 10,000-100,000 mIU/mL6-8 Weeks: 15,000-200,000 mIU/mL2-3 Months:10,000-100,000 mIU/mL hCG Titer Quant., Serumon HCG QUANT. < 1 Normal <9 non-preg [facility] Comment on above: Result Comment: Gest ational Age 0.2-1 Week: 5-50 mIU/mL 1-2 Weeks: 50-500 mIU/mL 2-3 Weeks: 100-5000 mIU/mL 3-4 Weeks: 500-10,000 mIU/mL 4-5 Weeks:1000-50,000 mIU/mL 5-6 Weeks: 10,000-100,000 mIU/mL 6-8 Weeks: 15,000-200,000 mIU/mL 2-3 Months:10,000-100,000 mIU/mL Performed By: #### L 700.8000 #### [facility] [address] [place], [address] L/S Spine Min 4 Viewson 01-11 L/S Spine Min 4 Views [facility] Imaging Services [address] [place] [address] L/S Spine Min 4 Views MR#: [id number] Acct: [id number] Name: STEFANIA NICOLE Rep #: [id number] : 1990 F 34 From: Daniel Cordova MD PCP: Dr. Vilma Min MD Status: REG CLI Study: L/S Spine Min 4 Views Date of Exam: 01/26/25 Exam# [id number] Ordering Dr: Brenda Crawford EXAM: XR Cervical [...] fracture or significant dynamic instability. Reading [facility] CC: SARAH Smith; Dr. Vilma Min MD Machine Tester: Signed Normal [facility] PAP IG HPV APTIMA 16/18,45on 01-10-2025 ORDER Normal [facility] Comment on above: Order Comment: RESUL TS FAXED TO [facility] 12/15/24 Donal Dobbs.LEA AT OFFICE NOTIFIED THAT FAX WOULD [...] image guided system. Performed by Opal Haywood, Maintenance Worker (ASCP) Electronically signed by Charlene Kunz MD, Pathologist This nucleic acid amplification test detects fourteen high-risk HPV types (16,18,31,33,35,39,45,51,52,56,58,59,66,68) without differentiation. HPV RESULTS: HPV Aptima: Positive HPV Genotype Reflex Criteria not met, HPV Genotype not performed. TESTING PERFORMED AT [facility]. ORIGINAL REPORT ON FILE IN LAB CONTAINS ADDITIONAL TEST SITE INFORMATION. Performed By: #### L 501.0100, L500.4100, L501.9520, L503.0106, L506.0400, L506.1001 #### [facility] [address] [place], [address] HSV Culture Screenon 025 HSV CULTURE Negative Normal [facility] Comment on above: Performed By: #### L 3900.2300 #### [facility] [address] [place], [address] Herpes simplex virus (HSV) c ultureOrdered By: Margaret Santizo on 12-15-2024 HSV identified Org specific cx Nom (Unsp spec) Negative [facility] Edging Machine Catcher Office Visit Reporton 12-15-2024 Edging Machine Catcher Office Visit Report [facility] [address], [address] [place] [address] OFFICE VISIT Date of Service: 12/15/24 MR#: [id number] Acct: [id number] Name: STEFANIA NICOLE Rep #: [id number] : 1990 Provider: NEELAM Harrison Age/Sex: 34/F Location[place] [facility] Status: Signed Intake Vital Signs 12/01/24 08:28 12/15/24 14:00 12/15/24 14:04 Height 5 ft 2 in 5 ft 2 in 5 ft 2 in Weight: 145 lb BMI 26.5 BP 127/85 H Intake Visit Reasons: genital lesion Case Coordinator Required: No Is patient in pain?: No [...] No : No Control Method: ocp- [facility] Medical History GERD (gastroesophageal reflux [...] 2 current occupational status: employed 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 Normal [facility] Syphilis Antibodieson 2024 Syphilis Abs Non-Reactive Normal Nonreactive [facility] Comment on above: Performed By: #### L 509.8002 #### [facility] [address] [place], [place], [id number] Influenza virus A and B and SARS-CoV-2 (COVID-19) and Respiratory syncytial virus RNAOrdered By: Per Fairchild on 12-10-2024 SARS-CoV-2 (COVID-19) RNA JIM+probe Ql (Unsp spec) [facility] M100.678on 12-10-2024 M100.678 Pending SARS-CoV-2 (COVID 19) Negative INFLUENZA A Negative INFLUENZA B Negative RSV PCR Negative Normal [facility] Comment on above: Performed By: #### L 501.0100, L500.4100, L501.9520, L503.0106, L506.0400, L506.1001 #### [facility] [address] [place], [place], [id number] Thyroidon 12-08-2024 Thyroid [facility] Imaging Services [address] [place], [place] [address] Thyroid MR#: [id number] Acct: [id number] Name: STEFANIA NICOLE Rep #: [id number] : 1990 F 34 From: Daniel Gilbert MD PCP: Dr. Vilma Min MD Status: REG CLI Study: Thyroid Date of Exam: 12/08/24 Exam# [id number] Ordering Dr: Imelda Metzger DO PROCEDURE: THYROID, [...] Paper of the ACR TI-RADS Committee, 2017 ([email or web address]/pii/[email or web address]) Reading Location: [facility] CC: Dr. Vilma Min MD; Dr. Imelda Metzger DO Machine Tester: Signed Normal [facility] Chlamydia/GC JIM aptimaon CHLAMY,NUC ACID Negative Normal Negative [facility] Comment on above: Performed By: #### L 501.0100, L500.4100, L501.9520, L503.0106, L506.0400, L506.1001 #### [facility] [address] [place], [address] GC BY NUC ACID Negative Normal Negative [facility] Comment on above: Result Comment: Perf ormed at: =G - [facility] [id number] Construction Inspector: Sonia Simpson MD, Phone: [phone] Performed By: #### L 501.0100, L500.4100, L501.9520, L503.0106, L506.0400, L506.1001 #### [facility] [address] [place], [place], [address] Calculated very low density lipoprotein (VLDL) cholesterol measurementOrdered By: Imelda Marvin on 12-01-2024 Calculated very low density lipoprotein (VLDL) cholesterol measurement 14 mg/dL 5-40 [facility] Cervical or vaginal specimen microscopic examination by liquid based cytology (reportOrdered By: Imelda Marvin on 12-01-2024 Cytology report Cyto stain.thin prep Doc (Cvx/Vag) Not Reportable [facility] Chlamydia trachomatis rRNA d etection by probe and target amplification methodOrdered By: Imelda Marvin on 12-01-2024 C. trachomatis rRNA JIM+probe Ql (Unsp spec) Negative Negative [facility] Glucoseon 12-01-2024 Glucose [Mass/Vol] 88 mg/dL Normal 70-99 [facility] Comment on above: Performed By: #### L 501.0100, L500.4100, L501.9520, L503.0106, L506.0400, L506.1001 #### [facility] [address] [place], [address] LDL calc ser/plasOrdered By: Imelda Marvin on 12-01-2024 Cholesterol in LDL [Mass/Vol] 95 mg/dL [facility] Comment on above: Lifxsbyujj=035-707 m g/dL & Higher Fwwo=847 mg/dL or greater Lipid Profileon 12-01-2024 CHOL:HDL 2.85 Normal [facility] Comment on above: Performed By: #### L 501.0100, L500.4100, L501.9520, L503.0106, L506.0400, L506.1001 #### [facility] [address] [place], [place], [id number] Cholesterol [Mass/Vol] 168 mg/dL Normal <=200 [facility] Comment on above: Result Comment: Chol esterol level, Desirable <200 mg/dL Borderline high cholesterol 200-239 mg/dL High cholesterol >=240 mg/dL Recommendations of the NCEP Adult Treatment Panel for the following risk-cutoff thresholds for the [place] population. Performed By: #### L 501.0100, L500.4100, L501.9520, L503.0106, L506.0400, L506.1001 #### [facility] [address] [place], [address] Cholesterol in HDL [Mass/Vol] 59 mg/dL Normal [facility] Comment on above: Result Comment: Treva onal Cholesterol Education Program (NCEP) guidelines: <40 mg/dL: Low HDL-cholesterol (major risk factor for CHD) >= 60 mg/dL: High HDL-cholesterol (negative risk factor for CHD) HDL-cholesterol is affected by a number of factors, e.g. smoking, exercise, hormones, sex and age. Performed By: #### L 501.0100, L500.4100, L501.9520, L503.0106, L506.0400, L506.1001 #### [facility] [address] [place], [address] Cholesterol in LDL [Mass/Vol] 95 mg/dL Normal [facility] Comment on above: Result Comment: Bord lfjosh=019-678 mg/dL Higher Hyjs=168 mg/dL or greater Performed By: #### L 501.0100, L500.4100, L501.9520, L503.0106, L506.0400, L506.1001 #### [facility] [address] [place], [address] Cholesterol in VLDL [Mass/Vol] 14 mg/dL Normal 5-40 [facility] Comment on above: Performed By: #### L 501.0100, L500.4100, L501.9520, L503.0106, L506.0400, L506.1001 #### [facility] [address] [place], [address] Triglyceride [Mass/Vol] 69 mg/dL Normal [facility] Comment on above: Result Comment: The drugs N-Acetylcysteine and Metamizole may falsely depress this assay. Normal range: <150 mg/dL Borderline High: 150-199 mg/dL High: 200-499 mg/dL Very High: >500 mg/dL Performed By: #### L 501.0100, L500.4100, L501.9520, L503.0106, L506.0400, L506.1001 #### [facility] [address] [place], [address] Neisseria gonorrhoeae nuclei c acid detection by amplified probe techniqueOrdered By: Imelda Marvin on 12-01-2024 N. gonorrhoeae DNA JIM+probe Ql (Unsp spec) Negative Negative [facility] Comment on above: Performed at: [address] [id number] Director: Sonia Simpson MD, Phone: [phone] No Panel InformationOrdered By: Imelda Marvin on 12-01-2024 Pap Smear Test Ordered See comment [facility] Comment on above: IGP, Aptima HPV, rfx [...] an image guided system. Performed by Opal Haywood Maintenance Worker (ASCP) Electronically signed by Charlene Kunz MD, Pathologist This nucleic acid amplification test detects fourteen high-risk HPV types (16,18,31,33,35,39,45,51,52,56,58,59,66,68) without differentiation.HPV RESULTS: HPV Aptima: Positive HPV Genotype Reflex Criteria not met, HPV Genotype not performed. ____ TESTING PERFORMED AT [facility]. ORIGINAL REPORT ON FILE IN LAB CONTAINS ADDITIONAL TEST SITE INFORMATION. Edging Machine Catcher Office Visit Reporton 12-01-2024 Edging Machine Catcher Office Visit Report [facility] [address], [address] [place] [address] OFFICE VISIT Date of Service: 12/01/24 MR#: [id number] Acct: [id number] Name: STEFANIA NICOLE Rep #: [id number] : 1990 Provider: Dr. 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 Normal [facility] Screening total cholesterol/ high density lipoprotein (HDL) cholesterol ratioOrdered By: Imelda Marvin on 12-01-2024 Cholesterol.total/Chol esterol in HDL [Mass ratio] 2.85 {ratio} [facility] Serum glucose measurement (m ass/volume)Ordered By: Imelda Marvin on 12-01-2024 Glucose [Mass/Vol] 88 mg/dL 70-99 [facility] Serum or plasma cholesterol in HDL measurement (mass/volume)Ordered By: Imelda Marvin on 12-01-2024 Cholesterol in HDL [Mass/Vol] 59 mg/dL >40 [facility] Comment on above: National Cholesterol Education Program (NCEP) guidelines:<40 mg/dL: Low HDL-cholesterol (major risk factor for CHD)>= 60 mg/dL: High HDL-cholesterol (negative risk factor for CHD)HDL-cholesterol is affected by a number of factors, e.g. smoking, exercise, hormones, sex and age. Serum or plasma cholesterol measurement (mass/volume)Ordered By: Imelda Marvin on 12-01-2024 Cholesterol [Mass/Vol] 168 mg/dL <201 [facility] Comment on above: Cholesterol level, D esirable <200 mg/dLBorderline high cholesterol 200-239 mg/dLHigh cholesterol >=240 mg/dLRecommendations of the NCEP Adult Treatment Panel for the following risk-cutoff thresholds for the [place] population. T4 Free Directon 12-01-2024 T4 FREE DIRECT 1.30 ng/dL Normal 0.76-1.46 [facility] Comment on above: Performed By: #### L 501.0100, L500.4100, L501.9520, L503.0106, L506.0400, L506.1001 #### [facility] [address] [place], [place], [id number] T4 freeOrdered By: Imelda Marvin on 12-01-2024 Free T4 [Mass/Vol] 1.30 ng/dL 0.76-1.46 [facility] TSH DL <= 0.005 mIU/L QnOrde red By: Imelda Marvin on 12-01-2024 TSH Qn 1.480 uIU/mL 0.300-4.200 [facility] Thyroid Stim Hormone (TSH)on 12-01-2024 TSH 1.480 uIU/mL Normal 0.300-4.200 [facility] Comment on above: Performed By: #### L 501.0100, L500.4100, L501.9520, L503.0106, L506.0400, L506.1001 #### [facility] [address] [place], [place], [address] Triglycerides measurementOrd ered By: Imelda Marvin on 12-01-2024 Triglyceride [Mass/Vol] 69 mg/dL <199 [facility] Comment on above: The drugs N-Acetylcy steine and Metamizole may falsely depress this assay. Normal range: <150 mg/dLBorderline High: 150-199 mg/dLHigh: 200-499 mg/dLVery High: >500 mg/dL Vitamin B12on 12-01-2024 Cobalamin (Vitamin B12) [Mass/Vol] 419 pg/mL Normal 180-914 [facility] Comment on above: Performed By: #### L 501.0100, L500.4100, L501.9520, L503.0106, L506.0400, L506.1001 #### [facility] [address] [place], [address] Vitamin B12 ser/plasOrdered By: Imelda Marvin on 12-01-2024 Cobalamin (Vitamin B12) [Mass/Vol] 419 pg/mL 180-914 [facility] Vitamin D,25 Hydroxyon 12-01 Vitamin D 25-OH 19.4 ng/mL Low 30-100 [facility] Comment on above: Result Comment: Tahmina min D Status Deficiency: <20 ng/mL (50nmol/L) Insufficiency: 20-30 ng/mL (50-75 nmol/L) Sufficiency: 30-100 ng/mL (75-250 nmol/L) Toxicity: >100 ng/mL (>250 nmol/L) Performed By: #### L 501.0100, L500.4100, L501.9520, L503.0106, L506.0400, L506.1001 #### [facility] [address] [place], [place], [address] Serum human chorionic gonado tropin detection for pregnancyOrdered By: Rae Nogueira on 11-22-2024 HCG ( test) Ql 5 mIU/mL <9 [facility] Comment on above: Gestational Age0.2-1 Week: 5-50 mIU/mL1-2 Weeks: 50-500 mIU/mL2-3 Weeks: 100-5000 mIU/mL3-4 Weeks: 500-10,000 mIU/mL4-5 Weeks:1000-50,000 mIU/mL5-6 Weeks: 10,000-100,000 mIU/mL6-8 Weeks: 15,000-200,000 mIU/mL2-3 Months:10,000-100,000 mIU/mL hCG Titer Quant., Serumon HCG QUANT. 5 mIU/mL Normal <9 non-preg [facility] Comment on above: Result Comment: Gest ational Age 0.2-1 Week: 5-50 mIU/mL 1-2 Weeks: 50-500 mIU/mL 2-3 Weeks: 100-5000 mIU/mL 3-4 Weeks: 500-10,000 mIU/mL 4-5 Weeks:1000-50,000 mIU/mL 5-6 Weeks: 10,000-100,000 mIU/mL 6-8 Weeks: 15,000-200,000 mIU/mL 2-3 Months:10,000-100,000 mIU/mL Performed By: #### L 3900.2300 #### [facility] [address] [place], [address] Serum human chorionic gonado tropin detection for pregnancyOrdered By: Rae Nogueira on 11-18-2024 HCG ( test) Ql 19 mIU/mL High <9 [facility] Comment on above: Gestational Age0.2-1 Week: 5-50 mIU/mL1-2 Weeks: 50-500 mIU/mL2-3 Weeks: 100-5000 mIU/mL3-4 Weeks: 500-10,000 mIU/mL4-5 Weeks:1000-50,000 mIU/mL5-6 Weeks: 10,000-100,000 mIU/mL6-8 Weeks: 15,000-200,000 mIU/mL2-3 Months:10,000-100,000 mIU/mL hCG Titer Quant., Serumon HCG QUANT. 19 mIU/mL High <9 non-preg [facility] Comment on above: Result Comment: Gest ational Age 0.2-1 Week: 5-50 mIU/mL 1-2 Weeks: 50-500 mIU/mL 2-3 Weeks: 100-5000 mIU/mL 3-4 Weeks: 500-10,000 mIU/mL 4-5 Weeks:1000-50,000 mIU/mL 5-6 Weeks: 10,000-100,000 mIU/mL 6-8 Weeks: 15,000-200,000 mIU/mL 2-3 Months:10,000-100,000 mIU/mL Performed By: #### L 700.8000 #### [facility] [address] [place], [address] Serum human chorionic gonado tropin detection for pregnancyOrdered By: Rae Nogueira on 11-11-2024 HCG ( test) Ql 395 mIU/mL High <9 [facility] Comment on above: Gestational Age0.2-1 Week: 5-50 mIU/mL1-2 Weeks: 50-500 mIU/mL2-3 Weeks: 100-5000 mIU/mL3-4 Weeks: 500-10,000 mIU/mL4-5 Weeks:1000-50,000 mIU/mL5-6 Weeks: 10,000-100,000 mIU/mL6-8 Weeks: 15,000-200,000 mIU/mL2-3 Months:10,000-100,000 mIU/mL hCG Titer Quant., Serumon HCG QUANT. 395 mIU/mL High <9 non-preg [facility] Comment on above: Result Comment: Gest ational Age 0.2-1 Week: 5-50 mIU/mL 1-2 Weeks: 50-500 mIU/mL 2-3 Weeks: 100-5000 mIU/mL 3-4 Weeks: 500-10,000 mIU/mL 4-5 Weeks:1000-50,000 mIU/mL 5-6 Weeks: 10,000-100,000 mIU/mL 6-8 Weeks: 15,000-200,000 mIU/mL 2-3 Months:10,000-100,000 mIU/mL Performed By: #### L 3900.2300 #### [facility] [address] [place], [address] Serum human chorionic gonado tropin detection for pregnancyOrdered By: Rae Nogueira on 11-09-2024 HCG ( test) Ql 1887 mIU/mL High <9 [facility] Comment on above: Gestational Age0.2-1 Week: 5-50 mIU/mL1-2 Weeks: 50-500 mIU/mL2-3 Weeks: 100-5000 mIU/mL3-4 Weeks: 500-10,000 mIU/mL4-5 Weeks:1000-50,000 mIU/mL5-6 Weeks: 10,000-100,000 mIU/mL6-8 Weeks: 15,000-200,000 mIU/mL2-3 Months:10,000-100,000 mIU/mL hCG Titer Quant., Serumon HCG QUANT. 1887 mIU/mL High <9 non-preg [facility] Comment on above: Result Comment: Gest ational Age 0.2-1 Week: 5-50 mIU/mL 1-2 Weeks: 50-500 mIU/mL 2-3 Weeks: 100-5000 mIU/mL 3-4 Weeks: 500-10,000 mIU/mL 4-5 Weeks:1000-50,000 mIU/mL 5-6 Weeks: 10,000-100,000 mIU/mL 6-8 Weeks: 15,000-200,000 mIU/mL 2-3 Months:10,000-100,000 mIU/mL Performed By: #### L 3900.2300 #### [facility] [address] [place], [address] Serum human chorionic gonado tropin detection for pregnancyOrdered By: Kirstie Carter on 11-04-2024 HCG ( test) Ql 390 mIU/mL High <9 [facility] Comment on above: Gestational Age0.2-1 Week: 5-50 mIU/mL1-2 Weeks: 50-500 mIU/mL2-3 Weeks: 100-5000 mIU/mL3-4 Weeks: 500-10,000 mIU/mL4-5 Weeks:1000-50,000 mIU/mL5-6 Weeks: 10,000-100,000 mIU/mL6-8 Weeks: 15,000-200,000 mIU/mL2-3 Months:10,000-100,000 mIU/mL hCG Titer Quant., Serumon HCG QUANT. 390 mIU/mL High <9 non-preg [facility] Comment on above: Result Comment: Gest ational Age 0.2-1 Week: 5-50 mIU/mL 1-2 Weeks: 50-500 mIU/mL 2-3 Weeks: 100-5000 mIU/mL 3-4 Weeks: 500-10,000 mIU/mL 4-5 Weeks:1000-50,000 mIU/mL 5-6 Weeks: 10,000-100,000 mIU/mL 6-8 Weeks: 15,000-200,000 mIU/mL 2-3 Months:10,000-100,000 mIU/mL Performed By: #### L 509.8002 #### [facility] [address] [place], [address] Plastic Surgery Visit Report on 10-26-2024 Plastic Surgery Visit Report [facility] [address] [place] [address] OFFICE VISIT Date of Service: 10/26/24 MR#: [id number] Acct: [id number] Name: STEFANIA NICOLE Michael Rep #: [id number] : 1990 Provider: Dr. 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 10/26/24 1600 Date [facility] Date (if applicable) CC: Normal [facility] Discharge Instructionon Discharge Instruction [facility] Medical Records Department [address] [place] [address] Instructions for Home/Discharge Instructions 10/15/24 0950 MR#: [id number] Acct: [id number] Name: STEFANIA NICOLE Rep #: [id number] : 1990 34 From: Olinda Berrios MD PCP: Dr. Vilma Min MD Status:REG [facility] Discharge Instructions Dressing / Incision Additional Dressing/Incision [...] Care Provider: Vilma Min Instructions Print Language: Colombian Discharge Orders/Prescriptions Prescriptions: New sulfamethoxazole-trimeth oprim [Bactrim] 400-80 mg tablet 1 tab PO [...] Order can be placed): Home, Self Care 10/15/24951 Olinda Berrios MD CC: Dr. Vilma Min MD Signed Normal [facility] Operative Reporton 5 Operative Report [facility] Medical Records Department [address] [place] [address] Operative Report 10/15/2452 MR#: [id number] Acct: [id number] Name: STEFANIA NICOLE Rep #: [id number] : 1990 34 From: Olinda Berrios MD PCP: Dr. Vilma Min MD Status: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 Vilma Min MD; Dr. Olinda Berrios MD Signed Normal [facility] Surgery Specimen Level Kris 10-15-2024 Surgery Specimen Level IV Patient Age/Sex Location Account Attending Physician STEFANIA NICOLE 34/F [facility] [id number] Dr. Olinda Berrios MD Specimen: [id number] Received: 10/15/24 Status: [facility] Kendrick Num: [id number] Spec Type: Lesion Subm Dr: Dr. Olinda [...] neoplasm of uncertain behavior of skin of scalp-upper is an unoriented and circular skin excision [...] neoplasm of uncertain behavior of skin of scalp-lower is an unoriented and ovoid skin excision [...] partially adherent to epidermis)B2. Remainder of specimen [facility] 10-15-2024 [facility]:[id number] Patient Age/Sex Location Account Attending Physician STEFANIA NICOLE 34/F [facility] [id number] Dr. Olinda Berrios MD Signed (signature on file) Dr. Deb Paz MD 10/20/24 1712 Normal [facility] Comment on above: Performed By: #### L 3900.2300 #### [facility] [address] [place], [address] Plastic Surgery Visit Report on 10-13-2024 Plastic Surgery Visit Report [facility] Plastic Reconstructive Surgery [address] [place] [address] OFFICE VISIT Date of Service: 10/13/24 MR#: [id number] Acct: [id number] Name: STEFANIA NICOLE Rep #: [id number] : 1990 Provider: Dr. 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 Normal [facility] Absolute lymphocyte countOrd ered By: HEALTH ASSESSMENT on 10-11-2024 Lymphocytes Auto (Unsp spec) [#/Vol] 2.84 10*3/uL 0.83-4.51 [facility] Absolute neutrophil countOrd ered By: HEALTH ASSESSMENT on 10-11-2024 Neutrophils (Bld) [#/Vol] 5.2 10*3/uL 2.0-7.7 [facility] Absolute nucleated red blood cell countOrdered By: HEALTH ASSESSMENT on 10-11-2024 Nucleated RBC (Bld) [#/Vol] 0.00 10*3/uL 0-5 [facility] Anion gap in Serum or Plasma Ordered By: HEALTH ASSESSMENT on 10-11-2024 Anion gap [Moles/Vol] 13 mmol/L 5-15 [facility] BUN/creatinine ratioOrdered By: HEALTH ASSESSMENT on 10-11-2024 Urea nitrogen/Creatinine [Mass ratio] 11.6 mg/mg 10-20 [facility] Bilirubin Test strip Ql (U)O rdered By: HEALTH ASSESSMENT on 10-11-2024 Bilirubin Ql (U) 1 mg/dL High Negative [facility] Comment on above: COLOR OF URINE MAY A FFECT DIPSTICK RESULTS. Bilirubin directOrdered By: HEALTH ASSESSMENT on 10-11-2024 Bilirubin.direct [Mass/Vol] 0.19 mg/dL 0.00-0.30 [facility] Bilirubin, totalOrdered By: HEALTH ASSESSMENT on 10-11-2024 Bilirubin [Mass/Vol] 0.49 mg/dL 0.00-1.30 [facility] CBC, Employeeon 10-11-2024 Absolute Lymph 2.84 X10 3/uL Normal 0.83-4.51 [facility] Comment on above: Performed By: #### L 3900.2300 #### [facility] [address] [place], [address] Absolute Neut 5.2 X10 3/uL Normal 2.0-7.7 [facility] Comment on above: Performed By: #### L 3900.2300 #### [facility] [address] [place], [address] Basophils/100 WBC (Bld) 0.7 % Normal 0-1 [facility] Comment on above: Performed By: #### L 3900.2300 #### [facility] [address] [place], [address] Eosinophils/100 WBC (Bld) 1.0 % Normal 0-5 [facility] Comment on above: Performed By: #### L 3900.2300 #### [facility] [address] [place], [address] Erythrocyte distribution width (RBC) [Ratio] 12.2 % Normal 11.6-14.6 [facility] Comment on above: Performed By: #### L 3900.2300 #### [facility] [address] [place], [address] Hematocrit (Bld) [Volume fraction] 42.7 % Normal 37-47 [facility] Comment on above: Performed By: #### L 3900.2300 #### [facility] [address] [place], [address] Hemoglobin (Bld) [Mass/Vol] 14.7 g/dL Normal 12.0-15.0 [facility] Comment on above: Performed By: #### L 3900.2300 #### [facility] [address] [place], [address] Lymphocytes/100 WBC (Bld) 32.1 % Normal 19-41 [facility] Comment on above: Performed By: #### L 3900.2300 #### [facility] [address] [place], [address] MCH (RBC) [Entitic mass] 29.2 pg Normal 27.0-32.0 [facility] Comment on above: Performed By: #### L 3900.2300 #### [facility] [address] [place], [address] MCHC (RBC) [Mass/Vol] 34.4 g/dL Normal 32-36 [facility] Comment on above: Performed By: #### L 3900.2300 #### [facility] [address] [place], [address] MCV (RBC) [Entitic vol] 84.7 fL Normal 81-99 [facility] Comment on above: Performed By: #### L 3900.2300 #### [facility] [address] [place], [address] Monocytes/100 WBC (Bld) 7.4 % Normal 0-10 [facility] Comment on above: Performed By: #### L 3900.2300 #### [facility] [address] [place], [address] Neutrophils/100 WBC (Bld) 58.5 % Normal 47-70 [facility] Comment on above: Performed By: #### L 3900.2300 #### [facility] [address] [place], [address] NRBC # 0.00 10 3/uL Normal 0-5 [facility] Comment on above: Performed By: #### L 3900.2300 #### [facility] [address] [place], [address] Nucleated RBC (Bld) [#/Vol] 0 10*3/uL Normal 0-5 [facility] Comment on above: Performed By: #### L 3900.2300 #### [facility] [address] [place], [address] Platelet mean volume (Bld) [Entitic vol] 9.1 fL Normal 6.2-12.0 [facility] Comment on above: Performed By: #### L 3900.0 #### [facility] [address] [place], [address] Platelets (Bld) [#/Vol] 430 10*3/uL Normal 150-450 [facility] Comment on above: Performed By: #### L 3900.2300 #### [facility] [address] [place], [address] RBC (Bld) [#/Vol] 5.04 10*6/uL Normal 4.2-5.4 [facility] Comment on above: Performed By: #### L 390.2299 #### [facility] [address] [place], [address] RDW SD 37.2 fl Normal 35.1-43.9 [facility] Comment on above: Performed By: #### L 3900.2300 #### [facility] [address] [place], [address] WBC (Bld) [#/Vol] 8.9 10*3/uL Normal 4.4-11.0 [facility] Comment on above: Performed By: #### L 3900.2300 #### [facility] [address] [place], [place], [address] Calculated very low density lipoprotein (VLDL) cholesterol measurementOrdered By: HEALTH ASSESSMENT on 10-11-2024 Calculated very low density lipoprotein (VLDL) cholesterol measurement 22 mg/dL 5-40 [facility] VLDL Cholesterol 22 mg/dL 5-40 [facility] Carbon dioxide, total [Moles /volume] in Central venous bloodOrdered By: HEALTH ASSESSMENT on 10-11-2024 CO2 [Moles/Vol] 22.9 mmol/L 21.0-32.0 [facility] Chloride assayOrdered By: HE ALTH ASSESSMENT on 10-11-2024 Chloride [Moles/Vol] 102 mmol/L 98-108 [facility] Employee Profileon Cholesterol in LDL [Mass/Vol] 109 mg/dL Normal 0-130 [facility] Comment on above: Performed By: #### L 3900.2300 #### [facility] [address] [facility] [place], [place], [address] Erythrocyte distribution wid th (RBC) [Ratio]Ordered By: HEALTH ASSESSMENT on 10-11-2024 Erythrocyte distribution width (RBC) [Entitic vol] 37.2 fL 35.1-43.9 [facility] Erythrocyte distribution wid th ratioOrdered By: HEALTH ASSESSMENT on 10-11-2024 Erythrocyte distribution width (RBC) [Ratio] 12.2 % 11.6-14.6 [facility] Erythrocyte distribution wid th standard deviationOrdered By: HEALTH ASSESSMENT on 10-11-2024 Erythrocyte distribution width (RBC) [Ratio] 37.2 fl 35.1-43.9 [facility] GFR/1.73 sq M.predicted faviola g non-blacks MDRD (S/P/Bld) [Vol rate/Area]Ordered By: HEALTH ASSESSMENT on 10-11-2024 Estimated GFR (MDRD) Non-Af Amer 97 >60 [facility] Comment on above: mL/min/1.73m2 CKD-EP I Creatinine Equation (2020) Glomerular filtration rate ( GFR) estimation/1.73 sq m using serum, plasma, or whole bOrdered By: HEALTH ASSESSMENT on 10-11-2024 GFR/1.73 sq M.predicted among non-blacks MDRD (S/P/Bld) [Vol rate/Area] 97 mL/min/{1.73_m2} >60 [facility] Comment on above: mL/min/1.73m2 CKD-EP I Creatinine Equation (2020) Glucose Ql (U)Ordered By: HE ALTH ASSESSMENT on 10-11-2024 Urine Glucose (UA) Normal mg/dl Normal [facility] Hematocrit Auto (Bld) [Volum e fraction]Ordered By: HEALTH ASSESSMENT on 10-11-2024 Hematocrit (Bld) [Volume fraction] 42.7 % 37-47 [facility] Hemoglobin measurementOrdere d By: HEALTH ASSESSMENT on 10-11-2024 Hemoglobin (Bld) [Mass/Vol] 14.7 g/dL 12.0-15.0 [facility] Ketones Test strip Ql (U)Ord ered By: HEALTH ASSESSMENT on 10-11-2024 Ketones Ql (U) Negative Negative [facility] - Chemistry and C hemistry - challengeOrdered By: HEALTH ASSESSMENT on 10-11-2024 AST [Catalytic activity/Vol] 23 U/L <32 [facility] Lactate dehydrogenase (LDH) measurementOrdered By: HEALTH ASSESSMENT on 10-11-2024 LDH [Catalytic activity/Vol] 168 U/L 84-246 [facility] Comment on above: Hemolysis present, R esults could be affected. Low density lipoprotein (LDL ) cholesterol measurementOrdered By: HEALTH ASSESSMENT on 10-11-2024 Cholesterol in LDL [Mass/Vol] 109 mg/dL 0-130 [facility] Lymphocytes Auto (Unsp spec) [#/Vol]Ordered By: HEALTH ASSESSMENT on 10-11-2024 Lymphocytes (Bld) [#/Vol] 2.84 10*3/uL 0.83-4.51 [facility] MCV (mean corpuscular volume ) determinationOrdered By: HEALTH ASSESSMENT on 10-11-2024 MCV (RBC) [Entitic vol] 84.7 fL 81-99 [facility] Mean corpuscular hemoglobin (MCH) determinationOrdered By: HEALTH ASSESSMENT on 10-11-2024 MCH (RBC) [Entitic mass] 29.2 pg 27.0-32.0 [facility] Mean corpuscular hemoglobin concentration (MCHC) determinationOrdered By: HEALTH ASSESSMENT on 10-11-2024 MCHC (RBC) [Mass/Vol] 34.4 g/dL 32-36 [facility] Mean platelet volume determi nationOrdered By: HEALTH ASSESSMENT on 10-11-2024 Platelet mean volume (Bld) [Entitic vol] 9.1 fL 6.2-12.0 [facility] Neutrophil percentageOrdered By: HEALTH ASSESSMENT on 10-11-2024 Neutrophils/100 WBC (Bld) 58.5 % 47-70 [facility] Nitrite Test strip Ql (U)Ord ered By: HEALTH ASSESSMENT on 10-11-2024 Nitrite Ql (U) Negative Negative [facility] Nucleated red blood cell per centageOrdered By: HEALTH ASSESSMENT on 10-11-2024 Nucleated RBC/100 WBC (Bld) [Ratio] 0 % 0-5 [facility] Platelet countOrdered By: HE ALTH ASSESSMENT on 10-11-2024 Platelets (Bld) [#/Vol] 430 10*3/uL 150-450 [facility] Potassium (Unsp spec) [Mass/ Vol]Ordered By: HEALTH ASSESSMENT on 10-11-2024 Potassium [Moles/Vol] 3.8 mmol/L 3.3-5.1 [facility] Potassium measurement (mass/ volume)Ordered By: HEALTH ASSESSMENT on 10-11-2024 Potassium (Unsp spec) [Mass/Vol] 3.8 mmol/L 3.3-5.1 [facility] Protein Test strip Ql (U)Ord ered By: HEALTH ASSESSMENT on 10-11-2024 Protein Ql (U) 30 mg/dl High Negative [facility] RBC Auto (Bld) [#/Vol]Ordere d By: HEALTH ASSESSMENT on 10-11-2024 RBC (Bld) [#/Vol] 5.04 10*6/uL 4.2-5.4 [facility] Screening total cholesterol/ high density lipoprotein (HDL) cholesterol ratioOrdered By: HEALTH ASSESSMENT on 10-11-2024 Cholesterol.total/Chol esterol in HDL [Mass ratio] 3.20 {ratio} [facility] Serum creatinine measurement (mass/volume)Ordered By: HEALTH ASSESSMENT on 10-11-2024 Creatinine [Mass/Vol] 0.82 mg/dL 0.70-1.20 [facility] Serum globulin measurementOr dered By: HEALTH ASSESSMENT on 10-11-2024 Globulin (S) [Mass/Vol] 2.7 g/dL 2.2-4.2 [facility] Serum glucose measurement (m ass/volume)Ordered By: HEALTH ASSESSMENT on 10-11-2024 Glucose [Mass/Vol] 86 mg/dL 70-99 [facility] Serum or plasma alanine santos otransferase (ALT) measurementOrdered By: HEALTH ASSESSMENT on 10-11-2024 ALT [Catalytic activity/Vol] 32 U/L <35 [facility] Serum or plasma albumin iris urement (mass/volume)Ordered By: HEALTH ASSESSMENT on 10-11-2024 Albumin [Mass/Vol] 4.4 g/dL 3.5-5.0 [facility] Serum or plasma albumin/glob ulin mass ratioOrdered By: HEALTH ASSESSMENT on 10-11-2024 Albumin/Globulin [Mass ratio] 1.7 {ratio} 0.9-2.4 [facility] Serum or plasma alkaline aries sphatase measurementOrdered By: HEALTH ASSESSMENT on 10-11-2024 ALP [Catalytic activity/Vol] 49 U/L 35-104 [facility] Serum or plasma calcium iris urement (mass/volume)Ordered By: HEALTH ASSESSMENT on 10-11-2024 Calcium [Mass/Vol] 9.4 mg/dL 7.6-11.0 [facility] Serum or plasma cholesterol in HDL measurement (mass/volume)Ordered By: HEALTH ASSESSMENT on 10-11-2024 Cholesterol in HDL [Mass/Vol] 60 mg/dL >40 [facility] Comment on above: National Cholesterol Education Program (NCEP) guidelines:<40 mg/dL: Low HDL-cholesterol (major risk factor for CHD)>= 60 mg/dL: High HDL-cholesterol (negative risk factor for CHD)HDL-cholesterol is affected by a number of factors, e.g. smoking, exercise, hormones, sex and age. Serum or plasma cholesterol measurement (mass/volume)Ordered By: HEALTH ASSESSMENT on 10-11-2024 Cholesterol [Mass/Vol] 191 mg/dL <201 [facility] Comment on above: Cholesterol level, D esirable <200 mg/dLBorderline high cholesterol 200-239 mg/dLHigh cholesterol >=240 mg/dLRecommendations of the NCEP Adult Treatment Panel for the following risk-cutoff thresholds for the [place] population. Serum or plasma urea nitroge n measurement (mass/volume)Ordered By: HEALTH ASSESSMENT on 10-11-2024 Urea nitrogen [Mass/Vol] 9 mg/dL 4-19 [facility] Serum or plasma uric acid me asurement (mass/volume)Ordered By: HEALTH ASSESSMENT on 10-11-2024 Urate [Mass/Vol] 5.2 mg/dL 2.6-6.0 [facility] Comment on above: The drugs N-Acetylcy steine and Metamizole may falsely depress this assay. Serum phosphorus measurement Ordered By: HEALTH ASSESSMENT on 10-11-2024 Phosphorus Level 3.1 mg/dL 2.7-4.5 [facility] Sodium levelOrdered By: [facility] ASS[facility] on 10-11-2024 Sodium [Moles/Vol] 138 mmol/L 133-145 [facility] Total proteinOrdered By: [facility] ASSESSMENT on 10-11-2024 Protein [Mass/Vol] 7.1 g/dL 5.9-8.4 [facility] Triglycerides measurementOrd ered By: HEALTH ASSESSMENT on 10-11-2024 Triglyceride [Mass/Vol] 108 mg/dL <199 [facility] Comment on above: The drugs N-Acetylcy steine and Metamizole may falsely depress this assay. Normal range: <150 mg/dLBorderline High: 150-199 mg/dLHigh: 200-499 mg/dLVery High: >500 mg/dL Urinalysis, Employeeon 10-11 BILIRUBIN URINE 1 mg/dL Abnormal Negative [facility] Comment on above: Order Comment: Urine , Random Result Comment: COLO R OF URINE MAY AFFECT DIPSTICK RESULTS. Performed By: #### L 3900.2300 #### [facility] [address] [place], [place], [address] Color (U) Yellow Normal Yellow [facility] Comment on above: Order Comment: Urine , Random Performed By: #### L 3900.2300 #### [facility] [address] [place], [address] Clarity (U) Sl. Cloudy Normal Clear [facility] Comment on above: Order Comment: Urine , Random Performed By: #### L 3900.2300 #### [facility] [address] [place], [address] GLUCOSE, UR Normal Normal Normal [facility] Comment on above: Order Comment: Urine , Random Performed By: #### L 3900.2300 #### [facility] [address] [place], [address] KETONE UR Negative Normal Negative [facility] Comment on above: Order Comment: Urine , Random Performed By: #### L 3900.2300 #### [facility] [address] [place], [address] LEUK ESTERASE 25 /ul Abnormal Negative [facility] Comment on above: Order Comment: Urine , Random Performed By: #### L 3900.2300 #### [facility] [address] [place], [address] Nitrite Ql (U) Negative Normal Negative [facility] Comment on above: Order Comment: Urine , Random Performed By: #### L 3900.2300 #### [facility] [address] [place], [address] OCCULT BLOOD-UR 25 /ul Abnormal Negative [facility] Comment on above: Order Comment: Urine , Random Performed By: #### L 3900.2300 #### [facility] [address] [place], [address] pH UR 6.0 Normal 5.0 - 8.0 [facility] Comment on above: Order Comment: Urine , Random Performed By: #### L 3900.2300 #### [facility] [address] [place], [address] PROT DIPSTX 30 mg/dl Abnormal Negative [facility] Comment on above: Order Comment: Urine , Random Performed By: #### L 3900.2300 #### [facility] [address] [place], [address] SP.GR. DIPSTX 1.020 Normal 1.002-1.030 [facility] Comment on above: Order Comment: Urine , Random Performed By: #### L 3900.2300 #### [facility] [address] [place], [address] UROBILI 1 mg/dl Abnormal Normal [facility] Comment on above: Order Comment: Urine , Random Performed By: #### L 3900.2300 #### [facility] [address] [place], [address] Urine blood detectionOrdered By: HEALTH ASSESSMENT on 10-11-2024 Urine Occult Blood 25 /ul High Negative [facility] Urine clarityOrdered By: [facility] ASSESSMENT on 10-11-2024 Clarity (U) Sl. Cloudy Clear [facility] Urine color determinationOrd ered By: HEALTH ASSESSMENT on 10-11-2024 Color (U) Yellow Yellow [facility] Urine glucose detectionOrder ed By: HEALTH ASSESSMENT on 10-11-2024 Glucose Ql (U) Normal mg/dl Normal [facility] Urine leukocyte esterase det ection by dipstickOrdered By: HEALTH ASSESSMENT on 10-11-2024 Leukocyte esterase Test strip Ql (U) 25 /ul High Negative [facility] Urine pHOrdered By: HEALTH A SSESSMENT on 10-11-2024 pH (U) 6.0 [pH] 5.0 - 8.0 [facility] Urine specific gravity measu rementOrdered By: HEALTH ASSESSMENT on 10-11-2024 Specific gravity (U) [Rel density] 1.020 1.002-1.030 [facility] Urine urobilinogen measureme ntOrdered By: HEALTH ASSESSMENT on 10-11-2024 Urobilinogen Ql (U) 1 mg/dl High Normal [facility] Urobilinogen Ql (U)Ordered B y: HEALTH ASSESSMENT on 10-11-2024 Urobilinogen (U) [Mass/Vol] 1 mg/dL High Normal [facility] White blood cell (WBC) count Ordered By: HEALTH ASSESSMENT on 10-11-2024 WBC (Bld) [#/Vol] 8.9 10*3/uL 4.4-11.0 [facility] Influenza virus A and B and SARS-CoV-2 (COVID-19) and Respiratory syncytial virus RNAOrdered By: Per Fairchild on 09-27-2024 SARS-CoV-2 (COVID-19) RNA JIM+probe Ql (Unsp spec) [facility] M100.678on 09-27-2024 M100.678 Pending SARS-CoV-2 (COVID 19) Negative INFLUENZA A Negative INFLUENZA B Negative RSV PCR Negative Normal [facility] Comment on above: Performed By: #### L 3900.2300 #### [facility] [address] [facility] [place], [place], [address] Pelvic w/ Transvaginalon Pelvic w/ Transvaginal [facility] [address] [place], [place] [address] Pelvic w/ Transvaginal MR#: [id number] Acct: [id number] Name: STEFANIA NICOLE Rep #: [id number] : 1990 F 34 From: Remigio giang MD PCP: Dr. Vilma Min MD Status: REG CLI Study: Pelvic w/ Transvaginal Date of Exam: 09/06/24 Exam# [id number] Ordering Dr: Kirstie Carter DRY FOLDER CLOTH DRY FOLDER CLOTH -C PROCEDURE: PELVIC W/ TRANSVAGINAL REASON FOR [...] Heterogeneous appearance of the myometrium. Reading Location: [id number] CC: NEELAM Carter; Dr. Vilma Min MD Machine Tester: Signed Normal [facility] Influenza virus A and B and SARS-CoV-2 (COVID-19) and Respiratory syncytial virus RNAOrdered By: Per Fairchild on 2024 SARS-CoV-2 (COVID-19) RNA JIM+probe Ql (Unsp spec) [place] 1605000.678on 2024 M100.678 SARS-CoV-2 (COVID 19 ) Negative INFLUENZA A Negative INFLUENZA B Negative RSV PCR Negative Normal [facility] Comment on above: Performed By: #### L 501.0100, L500.4100, L501.9520, L503.0106, L506.0400, L506.1001 #### [facility] [place], [address] Influenza virus A and B and SARS-CoV-2 (COVID-19) and Respiratory syncytial virus RNAOrdered By: Per Fairchild on 08-17-2024 SARS-CoV-2 (COVID-19) RNA JIM+probe Ql (Unsp spec) [place] [address].678on 08-17-2024 M100.678 Pending SARS-CoV-2 (COVID 19) Negative INFLUENZA A Negative INFLUENZA B Negative RSV PCR Negative Normal [facility] Comment on above: Performed By: #### L 501.0100, L500.4100, L501.9520, L503.0106, L506.0400, L506.1001 #### [facility] [address] [place], [address] Absolute neutrophil countOrd ered By: Carisa Mohan on 07-01-2024 Neutrophils (Bld) [#/Vol] 4.8 10*3/uL 2.0-7.7 [facility] Basophil percentageOrdered B y: Carisa Mohan on 07-01-2024 Basophils/100 WBC (Bld) 1.0 % 0-1 [facility] CBC W/Diff, Automatedon 06-13 Absolute Lymph 2.24 X10 3/uL Normal 0.83-4.51 [facility] Comment on above: Performed By: #### L 501.0100, L500.4100, L501.9520, L503.0106, L506.0400, L506.1001 #### [facility] [address] [place], [address] Absolute Neut 4.8 X10 3/uL Normal 2.0-7.7 [facility] Comment on above: Performed By: #### L 501.0100, L500.4100, L501.9520, L503.0106, L506.0400, L506.1001 #### [facility] [address] [place], [address] Basophils/100 WBC (Bld) 1.0 % Normal 0-1 [facility] Comment on above: Performed By: #### L 501.0100, L500.4100, L501.9520, L503.0106, L506.0400, L506.1001 #### [facility] [address] [place], [address] Eosinophils/100 WBC (Bld) 0.7 % Normal 0-5 [facility] Comment on above: Performed By: #### L 501.0100, L500.4100, L501.9520, L503.0106, L506.0400, L506.1001 #### [facility] [address] [place], [address] Erythrocyte distribution width (RBC) [Ratio] 12.5 % Normal 11.6-14.6 [facility] Comment on above: Performed By: #### L 501.0100, L500.4100, L501.9520, L503.0106, L506.0400, L506.1001 #### [facility] [address] [facility] [place], [address] Hematocrit (Bld) [Volume fraction] 44.5 % Normal 37-47 [facility] Comment on above: Performed By: #### L 501.0100, L500.4100, L501.9520, L503.0106, L506.0400, L506.1001 #### [facility] [address] [place], [address] Hemoglobin (Bld) [Mass/Vol] 14.9 g/dL Normal 12.0-15.0 [facility] Comment on above: Performed By: #### L 501.0100, L500.4100, L501.9520, L503.0106, L506.0400, L506.1001 #### [facility] [address] [facility] [place], [address] IG% 0.300 Normal 0.0-0.9 [facility] Comment on above: Result Comment: IG% - Immature Granulocytes (promyelocytes, myelocytes and metamyelocytes) > 1% indicates that a LEFT SHIFT is Present. Performed By: #### L 501.0100, L500.4100, L501.9520, L503.0106, L506.0400, L506.1001 #### [facility] [address] [place], [address] Lymphocytes/100 WBC (Bld) 29.2 % Normal 19-41 [facility] Comment on above: Performed By: #### L 501.0100, L500.4100, L501.9520, L503.0106, L506.0400, L506.1001 #### [facility] [address] [place], [address] MCH (RBC) [Entitic mass] 28.9 pg Normal 27.0-32.0 [facility] Comment on above: Performed By: #### L 501.0100, L500.4100, L501.9520, L503.0106, L506.0400, L506.1001 #### [facility] [address] [place], [address] MCHC (RBC) [Mass/Vol] 33.5 g/dL Normal 32-36 [facility] Comment on above: Performed By: #### L 501.0100, L500.4100, L501.9520, L503.0106, L506.0400, L506.1001 #### [facility] [address] [place], [address] MCV (RBC) [Entitic vol] 86.4 fL Normal 81-99 [facility] Comment on above: Performed By: #### L 501.0100, L500.4100, L501.9520, L503.0106, L506.0400, L506.1001 #### [facility] [address] [place], [address] Monocytes/100 WBC (Bld) 6.5 % Normal 0-10 [facility] Comment on above: Performed By: #### L 501.0100, L500.4100, L501.9520, L503.0106, L506.0400, L506.1001 #### [facility] [address] [place], [address] Neutrophils/100 WBC (Bld) 62.3 % Normal 47-70 [facility] Comment on above: Performed By: #### L 501.0100, L500.4100, L501.9520, L503.0106, L506.0400, L506.1001 #### [facility] [address] [place], [address] Nucleated RBC (Bld) [#/Vol] 0 10*3/uL Normal 0-5 [facility] Comment on above: Performed By: #### L 501.0100, L500.4100, L501.9520, L503.0106, L506.0400, L506.1001 #### [facility] [address] [place], [address] Platelet mean volume (Bld) [Entitic vol] 9.9 fL Normal 6.2-12.0 [facility] Comment on above: Performed By: #### L 501.0100, L500.4100, L501.9520, L503.0106, L506.0400, L506.1001 #### [facility] [address] [place], [address] Platelets (Bld) [#/Vol] 441 10*3/uL Normal 150-450 [facility] Comment on above: Performed By: #### L 501.0100, L500.4100, L501.9520, L503.0106, L506.0400, L506.1001 #### [facility] [address] [place], [address] RBC (Bld) [#/Vol] 5.15 10*6/uL Normal 4.2-5.4 [facility] Comment on above: Performed By: #### L 501.0100, L500.4100, L501.9520, L503.0106, L506.0400, L506.1001 #### [facility] [address] [place], [address] RDW SD 39.3 fl Normal 35.1-43.9 [facility] Comment on above: Performed By: #### L 501.0100, L500.4100, L501.9520, L503.0106, L506.0400, L506.1001 #### [facility] [address] [place], [address] WBC (Bld) [#/Vol] 7.7 10*3/uL Normal 4.4-11.0 [facility] Comment on above: Performed By: #### L 501.0100, L500.4100, L501.9520, L503.0106, L506.0400, L506.1001 #### [facility] [address] [place], [address] Eosinophil percentageOrdered By: Carisa Mohan on 07-01-2024 Eosinophils/100 WBC (Bld) 0.7 % 0-5 [facility] Erythrocyte distribution wid th (RBC) [Ratio]Ordered By: Carisa Mohan on 07-01-2024 Erythrocyte distribution width (RBC) [Entitic vol] 39.3 fL 35.1-43.9 [facility] Erythrocyte distribution wid th ratioOrdered By: Carisa Mohan on 07-01-2024 Erythrocyte distribution width (RBC) [Ratio] 12.5 % 11.6-14.6 [facility] Hematocrit Auto (Bld) [Volum e fraction]Ordered By: Carisa Mohan on 07-01-2024 Hematocrit (Bld) [Volume fraction] 44.5 % 37-47 [facility] Hemoglobin measurementOrdere d By: Carisa Mohan on 07-01-2024 Hemoglobin (Bld) [Mass/Vol] 14.9 g/dL 12.0-15.0 [facility] Immature granulocytes/100 WB C Auto (Bld)Ordered By: Carisa Mohan on 07-01-2024 Immature granulocytes/100 WBC (Bld) 0.300 % 0.0-0.9 [facility] Comment on above: IG% - Immature Granu locytes (promyelocytes, myelocytes and metamyelocytes) > 1% indicates that a LEFT SHIFT is Present. Lymphocytes Auto (Unsp spec) [#/Vol]Ordered By: Carisa Mohan on 07-01-2024 Lymphocytes (Bld) [#/Vol] 2.24 10*3/uL 0.83-4.51 [facility] Lymphocytes/100 WBC Auto (Un sp spec)Ordered By: Carisa Mohan on 07-01-2024 Lymphocytes/100 WBC (Bld) 29.2 % 19-41 [facility] MCV (mean corpuscular volume ) determinationOrdered By: Carisa Mohan on 07-01-2024 MCV (RBC) [Entitic vol] 86.4 fL 81-99 [facility] Mean corpuscular hemoglobin (MCH) determinationOrdered By: Carisa Mohan on 07-01-2024 MCH (RBC) [Entitic mass] 28.9 pg 27.0-32.0 [facility] Mean corpuscular hemoglobin concentration (MCHC) determinationOrdered By: Carisa Mohan on 07-01-2024 MCHC (RBC) [Mass/Vol] 33.5 g/dL 32-36 [facility] Mean platelet volume determi nationOrdered By: Carisa Mohan on 07-01-2024 Platelet mean volume (Bld) [Entitic vol] 9.9 fL 6.2-12.0 [facility] Monocyte percentageOrdered B y: Carisa Mohan on 07-01-2024 Monocytes/100 WBC (Bld) 6.5 % 0-10 [facility] Neutrophil percentageOrdered By: Carisa Mohan on 07-01-2024 Neutrophils/100 WBC (Bld) 62.3 % 47-70 [facility] Nucleated red blood cell per centageOrdered By: Carisa Mohan on 07-01-2024 Nucleated RBC/100 WBC (Bld) [Ratio] 0 % 0-5 [facility] Platelet countOrdered By: Jhoana Mohan on 07-01-2024 Platelets (Bld) [#/Vol] 441 10*3/uL 150-450 [facility] RBC Auto (Bld) [#/Vol]Ordere d By: Carisa Mohan on 07-01-2024 RBC (Bld) [#/Vol] 5.15 10*6/uL 4.2-5.4 [facility] White blood cell (WBC) count Ordered By: Carisa Mohan on 07-01-2024 WBC (Bld) [#/Vol] 7.7 10*3/uL 4.4-11.0 [facility] Internal Medicine Office Vis iton 05-20-2024 Internal Medicine Office Visit [facility] [address] [place], [place] [address] OFFICE VISIT Date of Service: 05/24/24 MR#: [id number] Acct: [id number] Name: STEFANIA NICOLE Rep #: [id number] : 1990 Provider: Dr. Vilma rey MD Age/Sex: 33/F Location[place] [facility] Status: Signed with Addenda ADDENDUM by SUDHEER Pereira on 05/24/24 at 0959 Office Procedure Documentation entered by Bernarda Pereira MA 05/24/24 09:59: Immunizations Flucelvax Triv (PF) 45 mcg (15 mcg x 3)/0.5 mL IM syringe Performing Provider: Vilma Min MD Performing Location: [facility] Administered by: Bernarda Pereira MA on 05/24/24 09:57 Dose Route Admin Location Dispensed Lot Number Expiration Date NDC Man ufacturer 0.5 mL IM Left Deltoid 0.5 mL [id number] 12/08/24 31109-956-91 [employer] VIS Given Date VIS Provided VIS Publication Date 05/24/24 Single Vaccine 24 Eligibility Eligibility Date Funding Source Not Applicable Date cc: * Signed Intake Vital Signs 10/30/24 14:18 05/24/24 08:58 Height 5 ft 2 in 5 ft 2 in Weight: 143 lb BMI 26.2 BP 120/60 Blood Pressure Location Lt brachial Position Sitting Respiration 16 Pulse 104 H Pulse Source Monitor Temp 98.8 F Temp Source Temporal Pulse Oximetry (%) 99 Oxygen Delivery Method room air Intake Visit Reasons: EST NEW PT - FRIEND PT Chief Complaint: est care Case Coordinator Required: No Accompanied by: Self Is patient [...] spouse current occupational status: employed current occupation: [employer]- [employer] Smoking Status: Never smoker alcohol intake: never substance use type: does not use seatbelt use: always do you feel safe at home: Yes additional social history: - [employer] [facility] [facility] HPI Chief Complaint: est care Details: STEFANIA NICOLE, is a 33 F who presents to the office today to establish care. She was seeing [facility] and last saw them about a year [...] She r (more content not included)... Normal [facility] Gastric Emptying Studyon Gastric Emptying Study [facility] Imaging Services [address] [place], [place] [id number] Gastric Emptying Study MR#: [id number] Acct: [id number] Name: STEFANIA NICOLE Rep #: [id number] : 1990 F 33 From: Peter Martinez PCP: SILVANO GRACE MD Status: REG CLI Study: Gastric Emptying Study Date of Exam: 05/18/24 Exam# [id number] Ordering Dr: Ana Paula Palmer [id number] CLINICAL: 33-year-old female with history of early [...] Signed: Peter Ritter DO at 7:47 EST Reading Location ID and State: [address] [place] [address] Tel , Service support , CC: NELEAM Palmer; SILVANO GRACE MD Machine Tester: Signed Normal [facility] Genital Culture Comprehensiv yadiel 05-15-2024 [facility] Reason for Exam: Vag inal discharge Normal vaginal bob isolated. No yeast, Gardnerella, Neisseria or beta-hemolytic Streptococcus isolated. Normal [facility] Comment on above: Performed By: #### L 501.0100, L500.4100, L501.9520, L503.0106, L506.0400, L506.1001 #### [facility] [address] [place], [address] Gram Stainon 05-12-2024 Reason for Exam: Vag inal discharge Gram Stain 3+ Gram positive rods No Gram negative diplococci No White Blood Cells Score = 1 Interpretation: 0-3 Normal, 4-6 Intermediate, 7-10 Positive BV Normal [facility] Comment on above: Performed By: #### L 501.0100, L500.4100, L501.9520, L503.0106, L506.0400, L506.1001 #### [facility] [place], [address] Edging Machine Catcher Office Visit Reporton 05-12-2024 [employer] Office Visit Report [facility] [address], [address] [place] [address] OFFICE VISIT Date of Service: 05/12/24 MR#: [id number] Acct: [id number] Name: STEFANIA NICOLE Rep #: [id number] : 1990 Provider: NEELAM coronado Age/Sex: 33/F [place] [facility] [place]: Signed Intake Vital Signs 05/12/24 14:18 Height 5 ft 2 in Weight: 145 lb 2 oz BMI 26.5 BP 118/84 H Intake Visit Reasons: Brown discharge x 2 weeks Chief Complaint: Brown discharge x 2 weeks Case Coordinator Required: No Is patient in pain?: No [...] : No : No Control Method: OCP PFSH Surgical History No significant past surgical history Family History (Updated 05/12/24 @ 14:25 by Thao Selby) Grandfather Cancer Lung- maternal Grandmother Breast cancer Paternal Social History (Updated 05/12/24 @ 14:25 by Thao Selby) household members: spouse current occupational status: employed 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 Denies new sexual partner. Denies irritation or itching but has noted slight odor. She is on full menses today. States was seeing provider in [place] and has tried orthotricyclen, loloestrin and now the lo tri daphne and always has brown discharge. 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 Date Name GA/Weeks Outcome Route Bth Weight Infant Gen Labor Lgth Anesthesia Del Locatn Provider FOB Unknown Nita Unknown Pavel VILLARREAL Const Constitutional: Reports system reviewed and no [...] and also pap 05/12/24 1443 Date Kirstie Emma DRY FOLDER CLOTH DRY FOLDER CLOTH-C Cosigner Signature: Date (if applicable) CC: Normal [facility] Hepatitis B Surface Antigeno n 09-19-2023 HBV surface Ag Ql (S) Negative Negative [facility] Hepatitis B Surface antibody on 09-19-2023 HBV surface Ab Ql (S) Negative Negative [facility] Antibody, IgGon 2023 Interpretation and review of laboratory results Abnormal [facility] MuV IgG Ql (S) Positive Abnormal Negative [facility] Assay performed usin g Diasorin CLIA methodology. [facility] No Panel Informationon 09-18 Interpretation and review of laboratory results Normal [facility] Test performed using Nilsa BERTO immunoassay system [facility] Rubeola Antibody, IgGon MeV IgG Ql (S) Immune [facility] Assay performed usin g Diasorin CLIA methodology. [facility] Vaginitis DNA ProbesOrdered By: Radha Crowe on 09-19-2023 Ken sp DNA Probe+sig amp Ql (Vag fld) Negative Negative [facility] G. vaginalis DNA Probe+sig amp Ql (Vag fld) Negative Negative [facility] Interpretation and review of laboratory results Normal [facility] T. vaginalis DNA Probe+sig amp Ql (Vag fld) Refer to Trichomonas Amplified RNA Result Negative [facility] Cervical AND or Vaginal cyto logy studyon 06-17-2023 Cytology Cervical or vaginal smear or scraping study Pathology report.total SEE COMMENT Gynecologic Cytology Case: [id number] Authorizing Provider: Nikki Stevens MD Collected: 06/17/2023 1508 Ordering Location: [facility] Received: 06/17/2023 1508 Office Building First Screen: LO Rodriguez Pathologist: Ansley Woo MD Specimen: ThinPrep Liquid-Based Pap-Imaging System Screen, CERVIX, DIAGNOSTIC Cytology study comment SEE COMMENT Squamous and/or Glandular Abnormality A. THINPREP PAP CERVIX, DIAGNOSTIC - Specimen Adequacy Satisfactory for evaluation; endocervical/transformat ion zone component is present General Categorization Epithelial cell abnormality- squamous cell, see interpretation. Descriptive Interpretation Atypical squamous cells of undetermined significance (ASC-US) - Cervix Laboratory comment SEE COMMENT Slide(s) initially screened by LO Rodriguez at [facility] [id number] [facility] [id number] By the signature on this report, the individual or group listed as making the Final Interpretation/Diagnosis certifies that they have reviewed this case. This specimen has been analyzed by the ThinPrep Imaging System ([employer] an automated imaging and review system, which assists the laboratory in evaluating cells on ThinPrep Pap tests. Following automated imaging, selected trotter from every slide were reviewed by a rn concurrent review and/or pathologist. Cervical cytology is a screening [...] LAB AP HPV GENOTYPE QUESTION Yes Normal [facility] HPV 16 and 18 and 31+33+35+3 9+45+51+52+56+58+59+66+68 DNA Pnl (Cvx)on 06-17-2023 HPV 16 DNA JIM+probe Ql (Unsp spec) Negative Normal Negative [facility] Comment on above: Order Comment: Testi [...] verified by the Molecular Diagnostic Laboratory at [facility]. The lab is certified under the Clinical Laboratory Amendments of 1988 (CLIA 88) as qualified to perform high complexity clinical laboratory testing. PERFORMING LAB LOCATIONS [facility]: [address] [place] [address] Performed By: #### 7 1432-9 #### DL Horvath ([id number]) [facility] ([facility]) [address] [place] [address] HPV 18 DNA JIM+probe Ql (Unsp spec) Negative Normal Negative [facility] Comment on above: Order Comment: Testi ng [...] patient Pap test results. Please refer to [facility] current quidelines for the use of HPV DNA testing, result interpretation, and patient management. The performance of this test was verified by the Molecular Diagnostic Laboratory at [facility]. The lab is certified under the Clinical Laboratory Amendments of 1988 (CLIA 88) as qualified to perform high complexity clinical laboratory testing. PERFORMING LAB LOCATIONS [facility]: [address] [place] [address] Performed By: #### 7 1432-9 #### DL Horvath ([id number]) [facility] ([facility]) [address] [place] [address] HPV 31+33+35+39+45+51+52+5 6+58+59+66+68 DNA JIM+probe Ql (Genital specimen) Negative Normal Negative [facility] Comment on above: Order Comment: Testi [...] patient Pap test results. Please refer to [facility] current quidelines for the use of HPV DNA testing, result interpretation, and patient management. The performance of this test was verified by the Molecular Diagnostic Laboratory at [facility]. The lab is certified under the Clinical Laboratory Amendments of 1988 (CLIA 88) as qualified to perform high complexity clinical laboratory testing. PERFORMING LAB LOCATIONS [facility]: [address] [place] [address] Performed By: #### 7 1432-9 #### DL Horvath ([id number]) [facility] ([facility]) [address] [place] [address] Human papilloma virus high-risk genotypes panel Negative Normal Negative [facility] Comment on above: Order Comment: Testi ng [...] verified by the Molecular Diagnostic Laboratory at [facility]. The lab is certified under the Clinical Laboratory Amendments of 1988 (CLIA 88) as qualified to perform high complexity clinical laboratory testing. 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 Signatures Electronically signed by : MELBA Amin; Dec 19 2022 1:55PM EST (Author) Normal [...] (O80) 10/03/2020-39 weeks, vaginal, male, #7 15oz 01/10/2018_40weeks_Femal e_7# 4oz History of Women's annual routine gynecological [...] 19.5 MCG/DAY IUD Vitals Vital Signs Recorded: [id number] 03:26PM Heart Rate84 Ujxerbfe935 Ejmzuxufl13 Height5 ft 3 in Huenja137 lb BMI Tqdvggkyfh39.33 kg/m2 BSA Calculated1.68 Tobacco Useb) No Falls [...] jackknife position with the assistance of my biomedical engineering supervisor, Bernarda. This revealed minimally enlarged internal hemorrhoids. These did not appear friable. There was no bleeding on contact with the scope. Musculoskeletal: Moves all extremities, warm, no edema Skin: warm and dry Signatures Electronically signed by : Michele Thornton MD; Nov 28 2022 7:50AM EST (Author) Normal [facility] Tobacco Screening.on 023 Fall risk assessment a) No falls within the last year [facility] Work Phone: Tobacco use status CPHS b) No [facility] Work Phone: [facility]on [facility]-2022 Initial Visit (Orthopaedic Surgery) Diagnoses/Problems Assessed [...] (O80) 10/03/2020-39 weeks, vaginal, male, #7 15oz 01/10/2018_40weeks_Femal e_7# 4oz History of Women's annual routine gynecological [...] 19.5 MCG/DAY IUD Vitals Vital Signs Recorded: 11Mar2022 02:24PM Hiccjytqsle00.8 F Height5 ft 2 in Mfksyg980 lb BMI Tqvtdnsrcl37.79 kg/m2 BSA Calculated1.65 Tobacco Useb) No Falls [...] Mar 11 2022 2:45PM EST (Author) Normal [facility] Radiologyon 03-11-2022 XR Wrist - bilateral 3 Views Please click on the link to view the study images Normal [facility] [address] Work Phone: [phone] XR Wrist - bilateral 3 Views Normal [facility] [address] Work Phone: Tobacco Screening.on 022 Fall risk assessment b) One or more fall s in the last year [facility] [address] Work Phone: Tobacco use status CPHS b) No [facility] [address] Work Phone: WRIST COMPLT MIN 3 VIEWSon 0 03-11-2022 WRIST COMPLT MIN 3 VIEWS Patient Name: STEFANIA SCHAFER STUDY: Right wrist 3 views. INDICATION: right wrist pain M25.531: Right wrist pain. COMPARISON: None. ACCESSION NUMBER(S): [id number] ORDERING CLINICIAN: JACKIE BARRIGA FINDINGS: No acute fracture or malalignment. No significant degenerative changes. Soft tissues are within normal limits. IMPRESSION: 1. Unremarkable right wrist radiographs. Electronically signed by: LARA DOBBINS MD Normal [facility] metabolic 2000 panelon 07-24-2021 Albumin [Mass/Vol] 4.5 g/dL 3.2 - 5.2 g/dL [facility] ALP [Catalytic activity/Vol] 104 U/L 40 - 140 U/L [facility] ALT [Catalytic activity/Vol] 52 U/L 14 - 65 U/L [facility] Anion gap [Moles/Vol] 11 mmol/L 10 - 2 0 mmol/L [facility] AST [Catalytic activity/Vol] 16 U/L 0 - 45 U/L [facility] Bilirubin [Mass/Vol] 0.4 mg/dL 0.0 - 1 .3 mg/dL [facility] Calcium [Mass/Vol] 9.5 mg/dL 8.4 - 10. 2 mg/dL [facility] Chloride [Moles/Vol] 106 mmol/L 98 - 10 8 mmol/L [facility] Creatinine [Mass/Vol] 0.62 mg/dL 0.40 - 1.10 [facility] GFR/1.73 sq M.predicted CKD-EPI (S/P/Bld) [Vol rate/Area] 123 >=60 mL/min/1.73 m2 [facility] Glucose [Mass/Vol] 91 mg/dL 65 - 99 mg/dL [facility] HCO3 [Moles/Vol] 27 mmol/L 21 - 32 mmol/L [facility] Interpretation and review of laboratory results Abnormal [facility] Potassium [Moles/Vol] 4.5 mmol/L 3.5 - 5.1 mmol/L [facility] Protein [Mass/Vol] 7.7 g/dL 6.0 - 8.0 g/dL [facility] Sodium [Moles/Vol] 139 mmol/L 135 - 145 mmol/L [facility] Urea nitrogen [Mass/Vol] 15 mg/dL 8 - 25 mg/dL [facility] Urea nitrogen/Creatinine [Mass ratio] 24.2 mg/mg High [facility] The eGFR should be u sed for monitoring renal function only and not for medication dosing. [facility] No Panel Informationon 07-24 [facility] TSH DL <= 0.005 mIU/L Qnon 0 07-24-2021 Interpretation and review of laboratory results Normal [facility] TSH Qn 1.43 m[IU]/L [facility] LMPon 12-15-2020 Last menstrual period start date MICHEAL [facility] [address] Work Phone: [phone] GC + Chlamydia By Amplified Detectionon 11-28-2020 C. trachomatis rRNA JIM+probe Ql (Unsp spec) Negative Negative [facility] [address] Work Phone: [phone] N. gonorrhoeae rRNA JIM+probe Ql (Unsp spec) Negative Negative [facility] [address] Work Phone: [phone] Comment on above: SOURCE: Urine IO HCG, Urine Test on 11-28-2020 HCG ( test) Ql (U) Negative Normal [facility] [address] Work Phone: [phone] Cult, Urineon 03-29-2020 Bacteria identified Cx Nom (U) PATIENT: STEFANIA SCHAFER LOCATION: [facility] BILL#: [id number] : 89 AGE: SEX: F ORDERED BY: CAROLE MANCUSO SOURCE: URINE COLLECTED: 03/29/20 15:41 ANTIBIOTICS AT BRUNA.: RECEIVED : 03/30/20 02:47 SITE: Clean Catch/Voided R E S U L T S URINE CULTURE,BACTERIAL FINAL 03/30/20 20:25 NO SIGNIFICANT GROWTH. [facility] [address] Work Phone: [phone] GC + Chlamydia By Amplified Detectionon 03-29-2020 C. trachomatis rRNA JIM+probe Ql (Unsp spec) Negative Negative [facility] [address] Work Phone: [phone] N. gonorrhoeae rRNA JIM+probe Ql (Unsp spec) Negative Negative [facility] [address] Work Phone: [phone] Comment on above: SOURCE: Urine Hepatitis B Surface Antigeno n 03-29-2020 Hepatitis B Surface Antigen Non-Reactive See Below [facility] [address] Work Phone: [phone] Comment on above: SOURCE: Reference Ra nge: NONREACTIVE Biotin interference may cause falsely decreased results. Patients taking a Biotin dose of up to 5 mg/day should refrain from taking Biotin for 24 hours before sample collection. Providers may contact their local laboratory for further information. SOURCE: Reference Ra nge: NONREACTIVE HIV Ag/Ab screen is performed using the Siemens SirigenllPhosImmune HIV Ag/Ab Combo assay which detects the [...] Nom (Bld) [facility] [address] Work Phone: [phone] Comment on above: NA Blood group antibody screen Ql Negative [facility] [address] Work Phone: [phone] Comment on above: NA Rh immune globulin screen (Bld) [Interp] Positive [facility] [address] Work Phone: [phone] Comment on above: NA No Panel Informationon 03-29 96.4 % [facility] [address] Work Phone: [phone] 0.4 % [facility] [address] Work Phone: [phone] 3.2 % [facility] [address] Work Phone: [phone] Comment on above: HGB A2 values may be falsely elevated in the presence of HGB S. SEE COMMENT [facility] [address] Work Phone: Comment on above: Normal Path Review-HGB Identificati onon 03-29-2020 Path Review-HGB Identification EVANS [facility] [address] Work Phone: [phone] Comment on above: By her/his signature above, the Pathologist listed as making the final interpretation certifies that she/he has personally reviewed this case. Rubella IgG Antibodyon 03-29 Rubella virus IgG IA Ql Positive [facility] [address] Work Phone: Comment on above: SOURCE: INTERPRETATI [...] IgG+IgM IA Ql (S) Non-Reactive See Below [facility] [address] Work Phone: Comment on above: SOURCE: Reference Ra nge: NONREACTIVENo significant level of Treponema pallidum antibody detected. Repeat testing in 2 to 4 weeks may be considered if early infection or incubating syphilis infection is suspected. Comprehensive Metabolic Pane saul 05-17-2019 Albumin [Mass/Vol] 4.3 g/dL 3.2 - 5.2 g/dL [facility] ALP [Catalytic activity/Vol] 75 U/L 40 - 140 U/L [facility] ALT [Catalytic activity/Vol] 27 U/L 14 - 65 U/L [facility] Anion gap [Moles/Vol] 9 mmol/L Low 10 - 2 0 mmol/L [facility] AST [Catalytic activity/Vol] 13 U/L 0 - 45 U/L [facility] Bilirubin [Mass/Vol] 0.4 mg/dL 0 - 1.3 mg/dL [facility] Calcium [Mass/Vol] 8.7 mg/dL 8.4 - 10. 2 mg/dL [facility] Chloride [Moles/Vol] 107 mmol/L 98 - 10 8 mmol/L [facility] Creatinine [Mass/Vol] 0.58 mg/dL 0.4 - 1.1 mg/dL [facility] GFR/1.73 sq M predicted among non-blacks MDRD (S/P/Bld) [Vol rate/Area] The eGFR should be used for monitoring renal function only and not for medication dosing. [facility] GFR/1.73 sq M.predicted CKD-EPI (S/P/Bld) [Vol rate/Area] 128 >=60 mL/min/1.73 m2 [facility] Glucose [Mass/Vol] 86 mg/dL 65 - 99 mg/dL [facility] HCO3 [Moles/Vol] 29 mmol/L 21 - 32 mmol/L [facility] Interpretation and review of laboratory results Abnormal [facility] Potassium [Moles/Vol] 3.9 mmol/L 3.5 - 5.1 mmol/L [facility] Protein [Mass/Vol] 7.6 g/dL 6 - 8 g/dL [facility] Sodium [Moles/Vol] 141 mmol/L 135 - 145 mmol/L [facility] Urea nitrogen [Mass/Vol] 8 mg/dL 8 - 25 mg/dL [facility] Urea nitrogen/Creatinine [Mass ratio] 13.8 mg/mg [facility] Lipid Panelon 05-17-2019 Cholesterol [Mass/Vol] 150 mg/dL 100 - 199 mg/dL [facility] Comment on above: National Cholesterol Education Program Guidelines: Cholesterol Desirable: <200 mg/dL Borderline High: 200-239 mg/dL High: greater than or equal to 240 mg/dL Cholesterol in HDL [Mass/Vol] 61 mg/dL 40 - 59 [facility] Comment on above: National Cholesterol Education Program Guidelines: HDL Cholesterol Low: <40 mg/dL Near Optimal: 40-59 mg/dL High: greater than or equal to 60 mg/dL Cholesterol in LDL [Mass/Vol] 73 mg/dL 10 - 130 mg/dL [facility] Comment on above: National Cholesterol Education Program Guidelines: LDL Cholesterol Optimal: <100 mg/dL Near Optimal/above Optimal: 100-129 mg/dL Borderline High: 130-159 mg/dL High: 160-189 mg/dL Very High: greater than or equal to 190 mg/dL Cholesterol non HDL [Mass/Vol] 89 mg/dL [facility] Comment on above: National Cholesterol Education Program Guidelines: NON HDL Cholesterol Desirable: <130 mg/dL Borderline High: 130-159 mg/dL High: 160-189 mg/dL Very High: > or = 190 mg/dL Cholesterol.total/Chol esterol in HDL [Mass ratio] 2.5 {ratio} ratio [facility] Comment on above: Female Cholesterol/H DL Ratio: Average risk: 4.4 1/2 average risk: 3.3 2 x average risk: 7.1 Triglyceride [Mass/Vol] 81 mg/dL 30 - 150 mg/dL [facility] Comment on above: National Cholesterol Education Program Guidelines: Triglyceride Normal: <150 mg/dL Borderline High: 150-199 mg/dL High: 200-499 mg/dL Very High: greater than or equal to 500 mg/dL TSH with Reflex Free T4on Interpretation and review of laboratory results Normal [facility] TSH Qn 1.10 m[IU]/L [facility] Placenta Pathology Request - NO EXAMon 01-13-2018 Placenta Pathology Request - NO EXAM Collected Normal [facility] Comment on above: Performed By: #### 2 [id number] ####JOELLE [address] [place] [address] Hematocriton 01-11-2018 Hematocrit (HCT) 35.1 % Low 36.0-48.0 [facility] Comment on above: Order Comment: first post- day Performed By: #### 2 [id number] ####JOELLEMelody [address] [place] [address] Hemoglobinon 01-11-2018 Hemoglobin mass conc (Bld) 11.9 g/dL Low 12.0-16.0 [facility] Comment on above: Order Comment: first post- day Performed By: #### 2 [id number] ####JOELLE [address] [place] [address] Auto Diffon 01-09-2018 Basophils Auto #/vol (Bld) 0.0 E3/mcL Normal 0.0-0.2 [facility] Comment on above: Order Comment: Order Added by Discern Expert. Performed By: #### 2 [id number] ####JOELLE [address] [place] [address] Basophils/100 WBC Auto (Bld) 0.2 % Normal 0.0-2.0 [facility] Comment on above: Order Comment: Order Added by Discern Expert. Performed By: #### 2 [id number] ####JOELLE [address] [place] [address] Eos Absolute 0.1 E3/mcL Normal 0.0-0.7 [facility] Comment on above: Order Comment: Order Added by Discern Expert. Performed By: #### 2 [id number] ####JOELLE [address] [place] [address] Eosinophils/100 leukocytes 0.6 % Normal 0.0-11.0 [facility] Comment on above: Order Comment: Order Added by Discern Expert. Performed By: #### 2 [id number] ####JOELLE [address] [place] [address] Lymphocytes 3.4 E3/mcL Normal 1.2-3.4 [facility] Comment on above: Order Comment: Order Added by Discern Expert. Performed By: #### 2 [id number] ####JOELLE [address] [place] [address] Lymphocytes/100 leukocytes 23.2 % Normal 20.0-55.0 [facility] Comment on above: Order Comment: Order Added by Discern Expert. Performed By: #### 2 [id number] ####JOELLE [address] [place] [address] [place] Absolute 1.0 E3/mcL High 0.0-0.7 [facility] Comment on above: Order Comment: Order Added by Discern Expert. Performed By: #### 2 [id number] ####JOELLE [address] [place] [address] Monocytes/100 leukocytes 7.0 % Normal 0.0-10.0 [facility] Comment on above: Order Comment: Order Added by Discern Expert. Performed By: #### 2 [id number] ####JOELLE [address] [place] [address] Neutro Absolute 10.3 E3/mcL High 1.4-6.5 [facility] Comment on above: Order Comment: Order Added by Discern Expert. Performed By: #### 2 [id number] ####JOELLEMelody [address] [place] [address] Neutro Auto 69.0 % Normal 37.0-75.0 [facility] Comment on above: Order Comment: Order Added by Discern Expert. Performed By: #### 2 [id number] ####JOELLE [address] [place] [address] CBC w/ Auto Diffon 8 Erythrocyte distribution width Auto Ratio (RBC) 13.6 % Normal 11.5-14.5 [facility] Comment on above: Performed By: #### 2 [id number] ####JOELLE [address] [place] [id number] Erythrocytes (RBC) 4.34 E6/mcL Normal 3.90-5.40 [facility] Comment on above: Performed By: #### 2 [id number] ####JOELLE [address] [place] 1755305 Hematocrit (HCT) 38.0 % Normal 36.0-48.0 [facility] Comment on above: Performed By: #### 2 [id number] ####JOELLE [address] [place] [id number] Hemoglobin mass conc (Bld) 13.1 g/dL Normal 12.0-16.0 [facility] Comment on above: Performed By: #### 2 [id number] ####JOELLE [address] [place] [address] MCH 30.2 pg Normal 27.0-31.0 [facility] Comment on above: Performed By: #### 2 [id number] ####JOELLE [address] [place] 1755305 MCHC mass conc (RBC) 34.6 g/dL Normal 33.0-37.0 [facility] Comment on above: Performed By: #### 2 [id number] ####JOELLE [address] [place] [address] MCV 87.4 fL Normal 78.0-100.0 [facility] Comment on above: Performed By: #### 2 [id number] ####JOELLE [address] [place] [id number] Platelet mean volume (PMV) 8.6 fL Normal 7.4-11.0 [facility] Comment on above: Performed By: #### 2 [id number] ####JOELLE [address] [place] [address] Platelets 268 E3/mcL Normal 130-400 [facility] Comment on above: Performed By: #### 2 [id number] ####JOELLE [address] [place] [address] WBC (Leukocytes) 14.8 E3/mcL High 3.6-11.0 [facility] Comment on above: Performed By: #### 2 [id number] ####JOELLE [address] [place] [address] Group B Strep PCRon 12-16-19 Group B Strep PCR Negative Normal [facility] Comment on above: Order Comment: Order Added by Discern Expert. Performed By: #### 2 [id number] ####JOELLE [address] [place] [address] C Urineon 11-30-2017 C Urine Final Report: Normal skin bob isolated Normal [facility] Comment on above: Performed By: #### 2 [id number] ####JOELLE [address] [place] [address] Auto Diffon 09-30-2017 Basophils Auto #/vol (Bld) 0.0 E3/mcL Normal 0.0-0.2 [facility] Comment on above: Order Comment: Order Added by Discern Expert. Performed By: #### 2 [id number] ####JOELLE [address] [place] [address] Basophils/100 WBC Auto (Bld) 0.2 % Normal 0.0-2.0 [facility] Comment on above: Order Comment: Order Added by Discern Expert. Performed By: #### 2 143901 ####JOELLE [address] [place] [address] Eos Absolute 0.1 E3/mcL Normal 0.0-0.7 [facility] Comment on above: Order Comment: Order Added by Discern Expert. Performed By: #### 2 691568 ####JOELLE [address] [place] [address] Eosinophils/100 leukocytes 1.0 % Normal 0.0-11.0 [facility] Comment on above: Order Comment: Order Added by Discern Expert. Performed By: #### 2 855646 ####JOELLE [address] [place] [address] Lymphocytes 2.3 E3/mcL Normal 1.2-3.4 [facility] Comment on above: Order Comment: Order Added by Discern Expert. Performed By: #### 2 [id number] ####JOELLE [address] [place] [address] Lymphocytes/100 leukocytes 20.5 % Normal 20.0-55.0 [facility] Comment on above: Order Comment: Order Added by Discern Expert. Performed By: #### 2 780976 ####JOELLE [address] [place] [address] [place] Absolute 0.8 E3/mcL High 0.0-0.7 [facility] Comment on above: Order Comment: Order Added by Discern Expert. Performed By: #### 2 036323 ####JOELLE [address] [place] [address] Monocytes/100 leukocytes 7.2 % Normal 0.0-10.0 [facility] Comment on above: Order Comment: Order Added by Discern Expert. Performed By: #### 2 530738 ####JOELLE [address] [place] [address] Neutro Absolute 7.8 E3/mcL High 1.4-6.5 [facility] Comment on above: Order Comment: Order Added by Discern Expert. Performed By: #### 2 712461 ####JOELLE [address] [place] [address] Neutro Auto 71.1 % Normal 37.0-75.0 [facility] Comment on above: Order Comment: Order Added by Discern Expert. Performed By: #### 2 [id number] ####JOELLE [address] [place] [address] CBC w/ Auto Diffon 8 Erythrocyte distribution width Auto Ratio (RBC) 13.8 % Normal 11.5-14.5 [facility] Comment on above: Performed By: #### 2 668043 ####JOELLE [address] [place] [address] Erythrocytes (RBC) 4.05 E6/mcL Normal 3.90-5.40 [facility] Comment on above: Performed By: #### 2 528824 ####JOELLE [address] [place] [address] Hematocrit (HCT) 35.5 % Low 36.0-48.0 [facility] Comment on above: Performed By: #### 2 366229 ####JOELLE [address] [place] [address] Hemoglobin mass conc (Bld) 12.2 g/dL Normal 12.0-16.0 [facility] Comment on above: Performed By: #### 2 184384 ####JOELLE [address] [place] [address] MCH 30.3 pg Normal 27.0-31.0 [facility] Comment on above: Performed By: #### 2 570200 ####JOELLE [address] [place] [address] MCHC mass conc (RBC) 34.5 g/dL Normal 33.0-37.0 [facility] Comment on above: Performed By: #### 2 937931 ####JOELLE [address] [place] [address] MCV 87.8 fL Normal 78.0-100.0 [facility] Comment on above: Performed By: #### 2 783237 ####JOELLE [address] [place] [address] Platelet mean volume (PMV) 7.1 fL Low 7.4-11.0 [facility] Comment on above: Performed By: #### 2 757357 ####JOELLE [address] [place] [address] Platelets 256 E3/mcL Normal 130-400 [facility] Comment on above: Performed By: #### 2 740030 ####JOELLE [address] [place] [address] WBC (Leukocytes) 11.0 E3/mcL Normal 3.6-11.0 [facility] Comment on above: Performed By: #### 2 349998 ####JOELLE [address] [place] [address] Gest Scr Glu 1 Hron 10-01-19 18 Glucose mass conc 102 mg/dL Normal 70-140 [facility] Comment on above: Performed By: #### 2 703739 ####JOELLE [address] [place] [address] US After 1st Trime steron 08-22-2017 US [...] 3:54 pmSigned by: Shady Gómez DO Technologist: JUANCARLOS Normal [facility] IGP W/hpv Rfx [id number] 07-03 Diagnosis: See Ref Lab Report Normal [facility] Comment on above: Order Comment: Order Added by Discern Expert. Performed By: #### 2 [id number] ####JOELLE [id number] [place] [address] RPRon 07-02-2017 RPR Ql Non-Reactive Normal Non-Reactive [facility] Comment on above: Performed By: #### 2 [id number] ####JOELLE [address] [place] [address] C Urineon 06-29-2017 C Urine Final Report: Rare growth of Normal skin bob isolated Normal [facility] Comment on above: Performed By: #### 2 [id number] ####JOELLE Microbiology [id number] [place] [address] Hep Bs Agon 06-28-2017 BSA (Body Surface Area) Negative Normal Negative [facility] Comment on above: Result Comment: Perf ormed At: [facility] [address] [id number] Vincent PhD Ph:[phone] Performed By: #### 2 [id number] ####[place] [address] ABO/Rh Echoon 06-27-2017 ABO/Rh E Interp... Positive Normal [facility] Comment on above: Performed By: #### 8 [id number] ####[place] [address] Antibody Screen Cap...on Screen Interp... Negative Normal [facility] Comment on above: Performed By: #### 8 [id number] ####[place] [address] Auto Diffon 06-27-2017 Basophils Auto #/vol (Bld) 0.0 E3/mcL Normal 0.0-0.2 [facility] Comment on above: Order Comment: Order Added by Discern Expert. Performed By: #### 2 898655 ####JOELLE [address] [place] [address] Basophils/100 WBC Auto (Bld) 0.3 % Normal 0.0-2.0 [facility] Comment on above: Order Comment: Order Added by Discern Expert. Performed By: #### 2 556950 ####JOELLE [address] [place] [address] Eos Absolute 0.1 E3/mcL Normal 0.0-0.7 [facility] Comment on above: Order Comment: Order Added by Discern Expert. Performed By: #### 2 776316 ####JOELLE [address] [place] [address] Eosinophils/100 leukocytes 0.7 % Normal 0.0-11.0 [facility] Comment on above: Order Comment: Order Added by Discern Expert. Performed By: #### 2 144424 ####JOELLE [address] [place] [address] Lymphocytes 2.8 E3/mcL Normal 1.2-3.4 [facility] Comment on above: Order Comment: Order Added by Discern Expert. Performed By: #### 2 272953 ####JOELLE [address] [place] [address] Lymphocytes/100 leukocytes 29.9 % Normal 20.0-55.0 [facility] Comment on above: Order Comment: Order Added by Discern Expert. Performed By: #### 2 273096 ####JOELLE [address] [place] [address] [place] Absolute 0.6 E3/mcL Normal 0.0-0.7 [facility] Comment on above: Order Comment: Order Added by Discern Expert. Performed By: #### 2 228070 ####JOELLE [address] [place] [address] Monocytes/100 leukocytes 6.6 % Normal 0.0-10.0 [facility] Comment on above: Order Comment: Order Added by Discern Expert. Performed By: #### 2 347833 ####JOELLE [address] [place] [address] Neutro Absolute 5.8 E3/mcL Normal 1.4-6.5 [facility] Comment on above: Order Comment: Order Added by Discern Expert. Performed By: #### 2 446623 ####JOELLE [address] [place] 17[address] Neutro Auto 62.5 % Normal 37.0-75.0 [facility] Comment on above: Order Comment: Order Added by Discern Expert. Performed By: #### 2 985888 ####JOELLE [address] [place] [address] CBC w/ Auto Diffon 7 Erythrocyte distribution width Auto Ratio (RBC) 12.6 % Normal 11.5-14.5 [facility] Comment on above: Performed By: #### 2 375468 ####JOELLE [address] [place] [address] Erythrocytes (RBC) 4.46 E6/mcL Normal 3.90-5.40 [facility] Comment on above: Performed By: #### 2 940337 ####JOELLE [address] [place] [address] Hematocrit (HCT) 38.2 % Normal 36.0-48.0 [facility] Comment on above: Performed By: #### 2 541278 ####JOELLE [address] [place] 1755305 Hemoglobin mass conc (Bld) 13.0 g/dL Normal 12.0-16.0 [facility] Comment on above: Performed By: #### 2 215181 ####JOELLE [address] [place] [address] MCH 29.2 pg Normal 27.0-31.0 [facility] Comment on above: Performed By: #### 2 888022 ####JOELLE [address] [place] [address] MCHC mass conc (RBC) 34.1 g/dL Normal 33.0-37.0 [facility] Comment on above: Performed By: #### 2 477823 ####JOELLE [address] [place] [address] MCV 85.6 fL Normal 78.0-100.0 [facility] Comment on above: Performed By: #### 2 [id number] ####JOELLE [address] [place] [address] Platelet mean volume (PMV) 7.4 fL Normal 7.4-11.0 [facility] Comment on above: Performed By: #### 2 345216 ####JOELLE [address] [place] [address] Platelets 296 E3/mcL Normal 130-400 [facility] Comment on above: Performed By: #### 2 186682 ####JOELLE [address] [place] [address] WBC (Leukocytes) 9.2 E3/mcL Normal 3.6-11.0 [facility] Comment on above: Performed By: #### 2 727178 ####JOELLE [address] [place] [address] Chlamydia GC by PCRon 2016 Chlamydia by PCR. Not Detected Normal Not Detected [facility] Comment on above: Result Comment: Xper t CT/NG Assay performance has not been evaluated in patients less than 14 years of age. Performed By: #### 3 [id number] ####JOELLE Almaguerc Micro SubSection, Gonorrhoeae by PCR Not Detected Normal Not Detected [facility] Comment on above: Result Comment: Xper t CT/NG Assay performance has not been evaluated in patients less than 14 years of age. Performed By: #### 3 [id number] ####JOELLE Misc Micro SubSection, HIV-1/2 Ag/Abon 06-27-2017 HIV-1/2 Ag/Ab Non-Reactive Normal Non-Reactive [facility] Comment on above: Performed By: #### 6 [id number] ####JOELLE Chemistry Manual [id number] [place] [address] Pathology ([facility])on 06-27-2017 Pathology ([facility]) FINAL GYNECOLOGIC CYTOLOGY [id number] ADEQUACYSatisfactory for EvaluationClinical information indicates , therefore endocervical component isnot applicable.GENERAL CATEGORIZATIONNegative for Intraepithelial Lesion or MalignancyDESCRIPTIVE DIAGNOSISFungi consistent with Ken species.CLINICAL HISTORYSPECIMEN( A) SCREENING CERVICAL/ENDOCERVICAL LIQUID-BASED PAPPerformed at [facility], [address], [place] [address]Kqkglqos by: Signed Out by: XAVIER LUEVANO Physical Integration Practitioner Reported: 07/02/2017 Normal [facility] Comment on above: Performed By: #### G YN ####[facility] [address] [place] [address] Rubella IgG Lvlon 06-27-2017 Rubella IgG Lvl 7.0 (NEG) Normal [facility] Comment on above: Result Comment: <10I U/ml NON REACTIVE: NOT FEHKUP90-78 IU/ml RUBELLA SPECIFIC AB PRESENT, EVALUATEFURTHER TO DETERMINE IMMUNE STATUS >15 IU/ml REACTIVE, IMMUNE Performed By: #### 2 [id number] ####JOELLE [address] [place] [address] TSHon 06-27-2017 Thyroid stimulating hormone (TSH) 1.69 mIU/m Normal 0.30-5.60 [facility] Comment on above: Performed By: #### 2 [id number] ####JOELLE [address] [place] [address] Vital Signs Date Time Vital Sign Value Performing Clinician Facility 12-15-2024 14:04-0400 Body height 157.[address] Vilma Min MD Work Phone: [facility] 12-15-2024 14:00-0400 Body mass index (BMI) [Ratio] 26.5 kg/m2 Dr. Vilma Min MD Work Phone: [facility] 12-15-2024 14:00-0400 Body weight 65.[address] Vilma Min MD Work Phone: [facility] 12-15-2024 14:00-0400 Diastolic blood pressure 85 mm[Hg] Dr. Vilma iMn MD Work Phone: [facility] 12-15-2024 14:00-0400 Systolic blood pressure 127 mm[Hg] Dr. Vilma Min MD Work Phone: [facility] 12-01-2024 08:28-0400 Body height 157.[address] Vilma Min MD Work Phone: [facility] 12-01-2024 08:28-0400 Body mass index (BMI) [Ratio] 27.3 kg/m2 Dr. Vilma Min MD Work Phone: [facility] 12-01-2024 08:28-0400 Body weight 67.[address] Vilma Min MD Work Phone: [facility] 12-01-2024 08:28-0400 Diastolic blood pressure 81 mm[Hg] Dr. Vilma Min MD Work Phone: [facility] 12-01-2024 08:28-0400 Systolic blood pressure 127 mm[Hg] Dr. Vilma Min MD Work Phone: [facility] 10-26-2024 14:17-0400 Body height 157.[address] Vilma Min MD Work Phone: [facility] 10-26-2024 14:17-0400 Body mass index (BMI) [Ratio] 27.2 kg/m2 Dr. Vilma Min MD Work Phone: [facility] 10-26-2024 14:17-0400 Body temperature 99 [degF] Dr. Vilma Min MD Work Phone: [facility] 10-26-2024 14:17-0400 Body weight 67.[address] Vilma Min MD Work Phone: [facility] 10-26-2024 14:17-0400 Diastolic blood pressure 81 mm[Hg] Dr. Vilma Min MD Work Phone: [facility] 10-26-2024 14:17-0400 Heart rate 89 /min Dr. Vilma Min MD Work Phone: [facility] 10-26-2024 14:17-0400 Respiratory rate 18 /min Dr. Vilma Min MD Work Phone: [facility] 10-26-2024 14:17-0400 SaO2% (BldA) [Mass fraction] 97 % Dr. Vilma Min MD Work Phone: [facility] 10-26-2024 14:17-0400 Systolic blood pressure 127 mm[Hg] Dr. Vilma Min MD Work Phone: [facility] 10-15-2024 09:59-0400 Body temperature 97.5 [degF] Dr. Vilma Min MD Work Phone: [facility] 10-15-2024 09:59-0400 Diastolic blood pressure 61 mm[Hg] Dr. Vilma Min MD Work Phone: [facility] 10-15-2024 09:59-0400 Heart rate 66 /min Dr. Vilma Min MD Work Phone: [facility] 10-15-2024 09:59-0400 Respiratory rate 16 /min Dr. Vilma Min MD Work Phone: [facility] 10-15-2024 09:59-0400 SaO2% (BldA) [Mass fraction] 100 % Dr. Vilma Min MD Work Phone: [facility] 10-15-2024 09:59-0400 Systolic blood pressure 113 mm[Hg] Dr. Vilma Min MD Work Phone: [facility] 10-15-2024 08:40-0400 Body height 157.[address] Vilma Min MD Work Phone: [facility] 10-15-2024 08:40-0400 Body mass index (BMI) [Ratio] 27.4 kg/m2 Dr. Vilma Min MD Work Phone: [facility] 10-15-2024 08:40-0400 Body weight 68.[address] Vilma Min MD Work Phone: [facility] 05-24-2024 08:58-0500 Body mass index (BMI) [Ratio] 28 kg/m2 Dr. Vilma Min MD Work Phone: [facility] 05-24-2024 08:58-0500 Body temperature 98.7 [degF] Dr. Vilma Min MD Work Phone: [facility] 05-24-2024 08:58-0500 Body weight 69.[address] Vilma Min MD Work Phone: [facility] 05-24-2024 08:58-0500 Diastolic blood pressure 68 mm[Hg] Dr. Vilma Min MD Work Phone: [facility] 05-24-2024 08:58-0500 Heart rate 79 /min Dr. Vilma Min MD Work Phone: [facility] 05-24-2024 08:58-0500 Respiratory rate 18 /min Dr. Vilma Min MD Work Phone: [facility] 05-24-2024 08:58-0500 SaO2% (BldA) [Mass fraction] 96 % Dr. Vilma Min MD Work Phone: [facility] 05-24-2024 08:58-0500 Systolic blood pressure 103 mm[Hg] Dr. Vilma Min MD Work Phone: [facility] 10-20-2023 10:37-0400 Body height 157.5 cm Silvano Grace MD Work Phone: [facility] 10-20-2023 10:37-0400 Body mass index (BMI) [Ratio] 26.52 kg/m2 Silvano Grace MD Work Phone: [facility] 10-20-2023 10:37-0400 Body temperature 98.6 [degF] Silvano Grace MD Work Phone: [facility] 10-20-2023 10:37-0400 Body weight 65.77 kg Silvano Grace MD Work Phone: [facility] 10-20-2023 10:37-0400 Diastolic blood pressure 83 mm[Hg] Silvano Grace MD Work Phone: [facility] 10-20-2023 10:37-0400 Heart rate 99 /min Silvano Grace MD Work Phone: [facility] 10-20-2023 10:37-0400 Respiratory rate 16 /min Silvano Grace MD Work Phone: [facility] 10-20-2023 10:37-0400 SaO2% (BldA) [Mass fraction] 98 % Silvano Grace MD Work Phone: [facility] 10-20-2023 10:37-0400 Systolic blood pressure 135 mm[Hg] Silvano Grace MD Work Phone: [facility] 09-18-2023 13:57-0500 Diastolic blood pressure 85 mm[Hg] Silvano Grace MD Work Phone: [facility] 09-18-2023 13:57-0500 Heart rate 111 /min Silvano Grace MD Work Phone: [facility] 09-18-2023 13:57-0500 Respiratory rate 98 /min Silvano Grace MD Work Phone: [facility] 09-18-2023 13:57-0500 Respiratory rate 16 /min Silvano Grace MD Work Phone: [facility] 09-18-2023 13:57-0500 Systolic blood pressure 125 mm[Hg] Silvano Grace MD Work Phone: [facility] 09-18-2023 13:52-0500 Body height 157.5 cm Silvano Grace MD Work Phone: [facility] 09-18-2023 13:52-0500 Body mass index (BMI) [Ratio] 26.63 kg/m2 Silvano Grace MD Work Phone: [facility] 09-18-2023 13:52-0500 Body temperature 97.59 [degF] Silvano Grace MD Work Phone: [facility] 09-18-2023 13:52-0500 Body weight 66.04 kg Silvano Grace MD Work Phone: [facility] 09-18-2023 13:52-0500 SaO2% (BldA) [Mass fraction] 98 % Silvano Grace MD Work Phone: [facility] 06-17-2023 14:41-0500 Body height 157.5 cm Nikki Stevens MD Work Phone: [facility] 06-17-2023 14:41-0500 Body mass index (BMI) [Ratio] 27.76 kg/m2 Nikki Stevens MD Work Phone: [facility] 06-17-2023 14:41-0500 Body weight 68.86 kg Nikki Stevens MD Work Phone: [facility] 06-17-2023 14:41-0500 Diastolic blood pressure 70 mm[Hg] Nikki Stevens MD Work Phone: [facility] 06-17-2023 14:41-0500 Systolic blood pressure 128 mm[Hg] Nikki Stevens MD Work Phone: [facility] 05-01-2023 15:11-0400 Body height 157.5 cm Silvano Grace MD Work Phone: [facility] 05-01-2023 15:11-0400 Body mass index (BMI) [Ratio] 27.98 kg/m2 Silvano Grace MD Work Phone: [facility] 05-01-2023 15:11-0400 Body temperature 98.71 [degF] Silvano Grace MD Work Phone: [facility] 05-01-2023 15:11-0400 Body weight 69.4 kg Silvano Grace MD Work Phone: [facility] 05-01-2023 15:11-0400 Diastolic blood pressure 86 mm[Hg] Silvano Grace MD Work Phone: [facility] 05-01-2023 15:11-0400 Heart rate 110 /min Silvano Grace MD Work Phone: [facility] 05-01-2023 15:11-0400 Respiratory rate 16 /min Silvano Grace MD Work Phone: [facility] 05-01-2023 15:11-0400 SaO2% (BldA) [Mass fraction] 98 % Silvano Grace MD Work Phone: [facility] 05-01-2023 15:11-0400 Systolic blood pressure 138 mm[Hg] Silvano Grace MD Work Phone: [facility] 11-25-2022 15:26-0400 Body height 160.02 cm No PCP None [facility] Work Phone: 11-25-2022 15:26-0400 Body mass index (BMI) [Ratio] 25.33 kg/m2 No PCP None [facility] Work Phone: 11-25-2022 15:26-0400 Body surface area Derived from formula 1.68 m2 No PCP None [facility] Work Phone: 11-25-2022 15:26-0400 Body weight 64.86 kg No PCP None [facility] Work Phone: 11-25-2022 15:26-0400 Diastolic blood pressure 76 mm[Hg] No PCP None [facility] Work Phone: 11-25-2022 15:26-0400 Heart rate 84 /min No PCP None [facility] Work Phone: 11-25-2022 15:26-0400 Systolic blood pressure 122 mm[Hg] No PCP None [facility] Work Phone: 03-11-2022 14:24-0400 Body height 157.48 cm No PCP None [facility] [address] Work Phone: 03-11-2022 14:24-0400 Body mass index (BMI) [Ratio] 25.79 kg/m2 No PCP None [facility] [address] Work Phone: 03-11-2022 14:24-0400 Body surface area Derived from formula 1.65 m2 No PCP None [facility] [address] Work Phone: 03-11-2022 14:24-0400 Body temperature 97.8 [degF] No PCP None [facility] [address] Work Phone: 03-11-2022 14:24-0400 Body weight 63.96 kg No PCP None [facility] [address] Work Phone: 07-24-2021 15:21-0500 Body height 157.5 cm Katrin Spring [employer] Work Phone: [facility] 07-24-2021 15:21-0500 Body mass index (BMI) [Ratio] 26.16 kg/m2 Katrin Spring [employer] Work Phone: [facility] 07-24-2021 15:21-0500 Body temperature 98.71 [degF] Katrin Spring [employer] Work Phone: [facility] 07-24-2021 15:21-0500 Body weight 64.86 kg Katrin Spring [employer] Work Phone: [facility] 07-24-2021 15:21-0500 Diastolic blood pressure 85 mm[Hg] Katrin Spring [employer] Work Phone: [facility] 07-24-2021 15:21-0500 Heart rate 101 /min Katrin Spring [employer] Work Phone: [facility] 07-24-2021 15:21-0500 Respiratory rate 16 /min Katrin Spring [employer] Work Phone: [facility] 07-24-2021 15:21-0500 SaO2% (BldA) [Mass fraction] 98 % Katrin Zuni [employer]ORMAN Work Phone: [facility] 07-24-2021 15:21-0500 Systolic blood pressure 116 mm[Hg] Katrin Zuni [employer]LECT[employer] MOTORMAN Work Phone: [facility] 12-15-2020 11:24-0400 Body height 157.48 cm No PCP None [facility] [address] Work Phone: 12-15-2020 11:24-0400 Body mass index (BMI) [Ratio] 25.64 kg/m2 No PCP None [facility] [address] Work Phone: 12-15-2020 11:24-0400 Body surface area Derived from formula 1.64 m2 No PCP None [facility] [address] Work Phone: 12-15-2020 11:24-0400 Body temperature 97.8 [degF] No PCP None [facility] [address] Work Phone: 12-15-2020 11:24-0400 Body weight 63.6 kg No PCP None [facility] [address] Work Phone: 12-15-2020 11:24-0400 Diastolic blood pressure 80 mm[Hg] No PCP None [facility] [address] Work Phone: 12-15-2020 11:24-0400 Systolic blood pressure 114 mm[Hg] No PCP None [facility] [address] Work Phone: 11-28-2020 14:07-0400 Body height 157.48 cm No PCP None [facility] [address] Work Phone: 11-28-2020 14:07-0400 Body mass index (BMI) [Ratio] 26.77 kg/m2 No PCP None [facility] [address] Work Phone: 11-28-2020 14:07-0400 Body surface area Derived from formula 1.67 m2 No PCP None [facility] [address] Work Phone: 11-28-2020 14:07-0400 Body temperature 98 [degF] No PCP None [facility] [address] Work Phone: 11-28-2020 14:07-0400 Body weight 66.4 kg No PCP None [facility] [address] Work Phone: 11-28-2020 14:07-0400 Diastolic blood pressure 70 mm[Hg] No PCP None [facility] [address] Work Phone: 11-28-2020 14:07-0400 Systolic blood pressure 112 mm[Hg] No PCP None [facility] [address] Work Phone: 06-23-2020 15:55-0500 BMI (Body Mass Index) 29.52 kg/m2 Carole Socorro [facility] [address] Work Phone: 06-23-2020 15:55-0500 Body Temperature 97.5 [degF] Carolejeana Mancuso [facility] [address] Work Phone: Comment on above: Method: Temporal 06-23-2020 15:55-0500 Body weight 73.2 kg Carole Mancuso [facility] [address] Work Phone: 06-23-2020 15:55-0500 BP Diastolic 78 mm[Hg] Carole Socorro [facility] [address] Work Phone: 06-23-2020 15:55-0500 BP Systolic 110 mm[Hg] Caorle Socorro [facility] [address] Work Phone: 06-23-2020 15:55-0500 BSA (Body Surface Area) 1.74 m2 Carole Socorro [facility] [address] Work Phone: 06-23-2020 15:55-0500 Height 157.48 cm Carole Socorro [facility] [address] Work Phone: 05-26-2020 15:12-0500 BMI (Body Mass Index) 27.22 kg/m2 Carole [address] Work Phone: 05-26-2020 15:12-0500 Body Temperature 97.5 [degF] Carole Hansen [address] Work Phone: Comment on above: Method: Temporal 05-26-2020 15:12-0500 Body weight 67.5 kg Carole burnett [address] Work Phone: 05-26-2020 15:12-0500 BP Diastolic 60 mm[Hg] Carole burnett [address] Work Phone: Comment on above: Location: LUE; Position: Sitting 05-26-2020 15:12-0500 BP Systolic 120 mm[Hg] Carole burnett [address] Work Phone: Comment on above: Location: LUE; Position: Sitting 05-26-2020 15:12-0500 BSA (Body Surface Area) 1.69 m2 Carole Hansen [address] Work Phone: 05-26-2020 15:12-0500 Height 157.48 cm Carole [address] Work Phone: 01-10-2020 15:42-0400 BMI (Body Mass Index) 24.16 kg/m2 [facility] 01-10-2020 15:42-0400 Body Temperature 98.01 [degF] [facility] 01-10-2020 15:42-0400 Body weight 59.92 kg [facility] 01-10-2020 15:42-0400 BP Diastolic 81 mm[Hg] [facility] 01-10-2020 15:42-0400 BP Systolic 123 mm[Hg] [facility] 01-10-2020 15:42-0400 Height 157.5 cm [facility] 01-10-2020 15:42-0400 Pulse (Heart Rate) 83 /min [facility] 01-10-2020 15:42-0400 Pulse Oximetry 97 % [facility] 01-10-2020 15:42-0400 Respiratory Rate 16 /min [facility] 06-17-2019 14:30-0500 BMI (Body Mass Index) 24.33 kg/m2 [facility] 06-17-2019 14:30-0500 Body Temperature 98.4 [degF] [facility] 06-17-2019 14:30-0500 Body weight 60.33 kg [facility] 06-17-2019 14:30-0500 BP Diastolic 83 mm[Hg] [facility] 06-17-2019 14:30-0500 BP Systolic 117 mm[Hg] [facility] 06-17-2019 14:30-0500 Height 157.5 cm [facility] 06-17-2019 14:30-0500 Pulse (Heart Rate) 91 /min [facility] 06-17-2019 14:30-0500 Pulse Oximetry 96 % [facility] 06-17-2019 14:30-0500 Respiratory Rate 18 /min [facility] 05-17-2019 14:58-0500 BMI (Body Mass Index) 24.69 kg/m2 [facility] 05-17-2019 14:58-0500 Body Temperature 98.2 [degF] [facility] 05-17-2019 14:58-0500 Body weight 61.24 kg [facility] 05-17-2019 14:58-0500 BP Diastolic 83 mm[Hg] [facility] 05-17-2019 14:58-0500 BP Systolic 118 mm[Hg] [facility] 05-17-2019 14:58-0500 Height 157.5 cm [facility] 05-17-2019 14:58-0500 Pulse (Heart Rate) 84 /min [facility] 05-17-2019 14:58-0500 Pulse Oximetry 98 % [facility] 05-17-2019 14:58-0500 Respiratory Rate 18 /min [facility] Encounters Encounter Date Encounter Type Care Provider Facility Start: 04-01-2025 ambulatory Rae Nogueira Facility :[facility] Start: 03-11-2025 ambulatory Brenda Fulk [facility] Start: 02-03-2025 End: 02-03-[address] Olinda Berrios MD Work Phone: -Laboratory Start: 02-03-2025 End: 02-03-2025 Patient encounter procedure Margaret Santizo [employer]-C -Laboratory Work Phone: Start: 02-03-2025 End: 02-03-2025 ambulatory Margaret Santizo Facility:[facility] Start: 01-31-2025 ambulatory Vilma Min [facility] Start: 01-26-2025 End: 01-26-[address] Olinda Berrios MD Work Phone: -Radiology [facility] Start: 01-26-2025 End: 01-26-2025 Patient encounter procedure Brenda Crawford PA -Radiology [facility] Work Phone: Start: 01-26-2025 End: 01-26-2025 ambulatory Brenda Crawford Facility:[facility] Start: 12-17-2024 ambulatory SILVANO [facility] Start: 12-15-2024 End: 12-15-2024 Patient encounter procedure Margaret Santizo [employer]OTH-C -[facility] Work Phone: Start: 12-15-2024 End: 12-15-[address] Vilma Min MD Work Phone: [facility] Work Phone: Start: 12-15-2024 End: 12-15-2024 ambulatory Margaret Santizo Facility:[facility] Start: 12-10-[address] Per Fairchild MD -[facility] Start: 12-10-2024 ambulatory Per Weiss ty:[facility] Start: 12-08-2024 End: 12-08-[address] Vilma Min MD Work Phone: [facility] Work Phone: Start: 12-08-2024 End: 12-08-[address] Imelda Metzger DO -[facility] Work Phone: Start: 12-08-2024 End: 12-08-2024 ambulatory Vilma Walhonding Facility:[facility] Start: 12-01-2024 End: 12-01-[address] Imelda Metzger DO -[facility] Work Phone: Start: 12-01-2024 End: 12-01-[address] Imelda Metzger DO [facility] Start: 12-01-2024 End: 12-01-[address] Vilma Min MD Work Phone: [facility] Work Phone: Start: 11-30-2024 End: 12-01-2024 ambulatory Vilma Min Facility:[facility] Start: 11-22-2024 End: 11-22-[address] Vilma Min MD Work Phone: [facility] Work Phone: Start: 11-22-2024 End: 11-22-2024 Patient encounter procedure Rae Nogueira CNM -Laboratory Work Phone: Start: 11-22-2024 End: 11-22-2024 ambulatory Vilma Min Facility:[facility] Start: 11-18-2024 End: 11-18-[address] Vilma Min MD Work Phone: [facility] Work Phone: Start: 11-18-2024 End: 11-18-2024 Patient encounter procedure Rae Nogueira CNM -Laboratory Work Phone: Start: 11-18-2024 End: 11-18-2024 ambulatory Vilma Min Facility:[facility] Start: 11-11-2024 End: 11-11-2024 Patient encounter procedure Rae Nogueira CNM -Laboratory,[facility] Work Phone: Start: 11-11-2024 End: 11-11-2024 ambulatory Vilma Woodardlay Facility:[facility] Start: 11-09-2024 End: 11-09-2024 Patient encounter procedure Kirstie Carter [employer]-C -Laboratory Work Phone: Start: 11-09-2024 End: 11-09-2024 ambulatory Vilma Woodardlay Facility:[facility] Start: 11-04-2024 End: 11-04-2024 Patient encounter procedure Margaret Santizo [employer]-C -Laboratory Work Phone: Start: 11-04-2024 End: 11-04-2024 ambulatory Margaret Santizo Facility:[facility] Start: 10-26-2024 End: 10-26-[address] Olinda Berrios MD -[facility] Work Phone: Start: 10-26-2024 End: 10-26-2024 ambulatory Olinda Berrios Facility:[facility] Start: 10-15-2024 Non-patient / Non-visit Dr. Olinda michel MD -[facility] Start: 10-15-2024 End: 10-15-2024 Admission to same day surgery center Dr. Olinda Berrios MD -[facility] Start: 10-15-2024 End: 10-15-[address] Vilma Min MD Work Phone: [facility] Work Phone: Start: 10-13-2024 End: 10-13-[address] Olinda Berrios MD -[facility] Work Phone: Start: 10-13-2024 End: 10-13-2024 ambulatory Olinda Berrios Facility:[facility] Start: 10-11-2024 Registered Referred HEALTH RIS K ASSESSMENT -Laboratory Work Phone: Start: 10-11-2024 ambulatory Health Risk Assessment Facility:[facility] Start: 10-01-2024 ambulatory SILVANO KHAN [facility] Start: 09-27-[address] Per Fairchild MD -[facility] Start: 09-27-2024 ambulatory Per Weiss ty:[facility] Start: 09-15-2024 ambulatory Vilma Walhonding Facility :[facility] Start: 09-09-2024 ambulatory Margaret Santizo Facility :[facility] Start: 09-06-2024 End: 09-06-2024 Patient encounter procedure Kirstie Mickleton [employer]-C -[facility] Work Phone: Start: 09-06-2024 End: 09-06-2024 ambulatory Kirstie Mickleton [employer] CLOTH Facility:[facility] Start: [address] Per Fairchild MD -[facility] Start: 2024 ambulatory Per Weiss ty:[facility] Start: 08-17-[address] Per Fairchild MD -[facility] Start: 08-17-2024 ambulatory Per Weiss ty:[facility] Start: 08-05-2024 ambulatory Derrell Monaco Facility :[facility] Start: 07-13-2024 ambulatory Kirstie Emma [employer]OTH Facil ity:[facility] Start: 07-01-2024 End: 07-01-2024 Patient encounter procedure Carisa SMITH -Laboratory, [place] Start: 06-30-2024 End: 07-01-2024 ambulatory Vilma Walhonding Facility:[facility] Start: 05-24-2024 End: 05-24-2024 ambulatory SILVANO [facility] Facility:[facility] Start: 05-18-2024 End: 05-18-2024 ambulatory SILVANO [facility] Facility:[facility] Start: 05-14-2024 ambulatory SILVANO RADHA [facility] Ambulatory Start: 05-12-2024 End: 05-12-2024 ambulatory Kirstie Emma [employer]OTH Facility:[facility] Start: 05-12-2024 End: 05-12-2024 ambulatory Kirstie Mickleton [employer]OTH Facility:[facility] Start: 03-10-2024 ambulatory SILVANO RADHA [facility] Ambulatory Start: 02-18-2024 End: 02-18-2024 ambulatory SILVANO [facility] Start: 02-09-2024 End: 02-09-2024 ambulatory SILVANO [facility] Start: 02-07-2024 End: 02-09-2024 Refill Silvano Grace MD Work Phone: [facility] Start: 12-06-2023 Refill Silvano Grace MD Work Phone: [facility] Start: 10-31-2023 End: 10-31-2023 Clinical Support Jackie Hodge LPN [facility] Comment on above: Need for vaccination [Z23] (Primary Dx) Need for vaccination (Primary Dx) Start: 10-20-2023 End: 10-20-2023 Office outpatient visit 15 minutes Silvano Grace MD Work Phone: [facility] Comment on above: control marge alas (Primary Dx) Start: 09-26-2023 End: 09-26-2023 Clinical Support Jackie Hodge LPN [facility] Comment on above: Need for vaccination [Z23] (Primary Dx) Start: 09-18-2023 End: 09-22-2023 [facility] Start: 09-18-2023 End: 09-18-2023 Office outpatient visit 25 minutes Silvano Grace MD Work Phone: [facility] Comment on above: Vaginal discharge (P rimary Dx); Dyspareunia in female; Pre-employment examination Start: 06-17-2023 End: 06-17-2023 ambulatory [facility] Ambulatory Start: 06-17-2023 End: 06-17-2023 Encounter for gynecological examination (general) (routine) without abnormal findings [facility] Ambulatory Start: 06-17-2023 End: 06-17-2023 Patient encounter procedure Nikki Stevens MD Work Phone: [facility] Work Phone: Start: 06-17-2023 End: 06-17-2023 Periodic preventive med est patient 18-39 yrs Nikki Stevens MD Work Phone: [facility] Comment on above: Cervical cancer scre ening (Primary Dx); Encounter for annual routine gynecological examination; Encounter for surveillance of contraceptive pills Start: 05-01-2023 End: 05-01-2023 Patient encounter status Silvano Grace MD Work Phone: [facility] Start: 05-01-2023 End: 05-01-2023 Periodic preventive med est patient 18-39 yrs Silvano Grace MD Work Phone: [facility] Comment on above: Skin mole; Wellness examination; Hemorrhoids, unspecified hemorrhoid type; Rib pain Start: 02-20-2023 ambulatory CNM, DREW RUTH Facility:[id number] Start: 12-19-2022 ambulatory CNM, DREW RUTH Facility:[id number] Start: 11-25-2022 [id number] Start: 11-25-2022 Patient encounter procedure No PCP None [facility] Work Phone: Start: 10-29-2022 End: 11-02-2022 ambulatory [facility] Start: 10-29-2022 End: 11-02-2022 Encounter for general adult medical examination without abnormal findings [facility] Start: 03-13-2022 Chart Update No PCP None [facility] Work Phone: Start: 03-11-2022 Office outpatient ne w 30 minutes No PCP None [facility] Work Phone: Start: 03-11-2022 ambulatory Ms. Jackie Barriga Facility:[id number] Start: 09-24-2021 Jagjit washburn CNP Work Phone: [facility] Comment on above: Anxiety with depress ion Start: 07-24-2021 End: 07-24-2021 Office outpatient visit 15 minutes Katrin BlackBert Lili RUSSELL Work Phone: [facility] Comment on above: Anxiety with depress ion (Primary Dx); Wellness examination; Bug bite, initial encounter Start: 07-24-2021 End: 07-24-2021 Patient encounter status Katrin Pearson [employer] Work Phone: [facility] Start: 12-15-2020 Office outpatient vi sit 10 minutes No PCP None [facility] [address] Work Phone: Start: 07-12-2020 Patient encounter procedure Carole Socorro [facility] [address] Work Phone: Start: 07-06-2020 Patient encounter procedure Carole Socorro [facility] [address] Work Phone: Start: 06-23-2020 Patient encounter procedure Carole Naif [facility] [address] Work Phone: Start: 05-26-2020 Patient encounter procedure Carole Socorro [facility] [address] Work Phone: Start: 04-26-2020 Patient encounter procedure Carole Socorro [facility] [address] Work Phone: Start: 03-29-2020 Patient encounter procedure Carole Socorro DO [facility] [address] Work Phone: Start: 03-01-2020 Patient encounter procedure Carole Socorro DO [facility] [address] Work Phone: Start: 01-10-2020 End: 01-10-2020 Patient encounter procedure Katrin Pearson Work Phone: [facility] Comment on above: Skin tag (Primary Dx ) Start: 06-17-2019 End: 06-17-2019 Periodic preventive med est patient 18-39 yrs Katrin SofiaBert Lili Work Phone: [facility] Comment on above: Routine gynecologica l examination (Primary Dx); control counseling Start: 05-17-2019 End: 05-17-2019 Initial preventive medicine new pt age 18-39yrs Katrin Pearson Work Phone: [facility] Comment on above: Wellness examination (Primary Dx); Anxiety with depression Start: 05-17-2019 Patient encounter status Yosef Pearson [employer] Work Phone: [facility] Start: 01-19-2018 Ambulatory Nelly Kartik Facility:[facility] Start: 01-09-2018 End: 01-11-2018 Evaluation and management of inpatient Nodr No Doctor Assigned Facility:[facility] Start: 01-01-2018 End: 01-02-2018 Ambulatory Nelly Kartik Facility:[facility] Start: 12-25-2017 End: 12-26-2017 Ambulatory Nelly Kartik Facility:[facility] Start: 12-18-2017 End: 12-19-2017 Ambulatory Nelly Kartik Facility:[facility] Start: 12-12-2017 End: 12-13-2017 Ambulatory Nelly Kartik Facility:[facility] Start: 12-12-2017 End: 12-13-2017 Ambulatory Nelly Kartik Facility:[facility] Start: 11-28-2017 End: 11-29-2017 Ambulatory Nelly Kartik Facility:[facility] Start: 11-14-2017 End: 11-15-2017 Ambulatory Nelly Kartik Facility:[facility] Start: 10-31-2017 End: 11-01-2017 Ambulatory Nelly Kartik Facility:[facility] Start: 10-16-2017 End: 10-17-2017 Ambulatory Nelly Kartik Facility:[facility] Start: 09-30-2017 End: 10-01-2017 Ambulatory Nelly Kartik Facility:[facility] Start: 09-19-2017 End: 09-20-2017 Ambulatory Nelly Kartik Facility:[facility] Start: 08-22-2017 End: 08-23-2017 Ambulatory Nelly Kartik Facility:[facility] Start: 08-22-2017 End: 08-23-2017 Ambulatory Nelly Kartik Facility:[facility] Start: 07-25-2017 End: 07-26-2017 Ambulatory Nelly Kartik Facility:[facility] Start: 06-27-2017 End: 06-28-2017 [facility] Start: 05-30-2017 End: 05-31-2017 [facility] Facility:[facility] Start: 05-28-2017 End: 05-29-2017 [facility] Patient encounter procedure Carole Mancuso [address] Work Phone: Comment on above: 06/2019-NEGATIVE [...] Auto Different ial panel - Blood Carole Socorro Start: 06-23-2020 Glucose post glucose dose Carole Naif Start: 06-06-2020 MAC Imaging Order Carole Socorro Start: 06-17-2019 Microscopic observat ion [Identifier] in Cervix by Cyto stain [facility] Start: 05-17-2019 Adult depression scr eening assessment [facility] History of No histor y of surgery Carole Socorro DO Insertion of intraut erine contraceptive device No PCP None Comment on above: 11/28/2020: Micheal; Plan of Treatment Date Care Activity Detail Author Start: 2042 Zoster Vaccines (1 o f 2) Zoster Vaccines (1 of 2) [facility] Start: 07-21-2030 DTaP/Tdap/Td Vaccine s (5 - Td or Tdap) DTaP/Tdap/Td Vaccines (5 - Td or Tdap) [facility] Start: 07-21-2030 Tetanus vaccination Tetanus: Every 1 0yrs [facility] Start: 06-17-2028 Screening for malign ant neoplasm of cervix [facility] Start: 06-17-2026 Screening for malign ant neoplasm of cervix [facility] Start: 12-15-2024 Serologic test for syphilis [facility] Start: 12-15-2024 Herpes simplex virus identified in Unspecified specimen by Organism specific culture [facility] Start: 12-01-2024 Liquid based cervica l cytology screening [facility] Start: 10-15-2024 Exc b9 lesion mrgn x cp sk tg s/n/h/f/g 3.1-4.0cm EXC H-F-NK-SP B9+STEPHY 3.1-4 [facility] Start: 10-15-2024 Patient discharge [facility] Start: 06-21-2024 End: 06-21-2024 Patient encounter procedure 06/21/2024 11:15 AM EST Office Visit [facility] [address] [place] [address] Nikki Stevens MD [address] [facility] [address] [place] [address] [facility] Start: 06-17-2024 History and physical examination, annual for health maintenance Wellness Visit [facility] Start: 05-06-2024 End: 05-06-2024 Patient encounter procedure 05/06/2024 3:00 PM EDT Office Visit [facility] [address] [place] [address] Silvano Grace MD [address] [address] [facility] Start: 05-01-2024 Depression screening using PHQ-9 (Patient Health Questionnaire 9) score [facility] Start: 05-01-2024 History and physical examination, annual for health maintenance Wellness Visit [facility] Start: 03-14-2024 Influenza vaccination [facility] Start: 03-01-2024 End: 03-01-2024 Clinical Support 03/01/2024 3:00 PM EDT Clinical Support [facility] [address] [place] [address] [facility] Start: 10-31-2023 End: 10-31-2023 Clinical Support 10/31/2023 3:00 PM EDT Clinical Support [facility] [address] [place] [address] [facility] Start: 10-20-2023 End: 10-20-2023 Patient encounter procedure 10/20/2023 11:40 AM EDT Office Visit [facility] [address] [place] [address] Silvano Grace MD [address] [address] [facility] Start: 06-17-2023 End: 06-17-2024 Cytology Cervical or vaginal smear or scraping study THINPREP PAP TEST Pathology and Cytology Routine Cervical cancer screening Expected: 06/17/2023, Expires: 06/17/2024 [facility] Service Area Work Phone: Comment on above: Expected: 06/17/2023 , Expires: 06/17/2024 Start: 03-14-2023 COVID-19 Vaccine ( season) COVID-19 Vaccine () [facility] Start: 03-14-2023 Influenza vaccination [facility] Start: 2022 Screening for malign ant neoplasm of cervix HPV/Cotest [facility] Start: 06-17-2022 Screening for malign ant neoplasm of cervix Pap Smear [facility] Start: 04-08-2022 FUV, Provider: Jackie Barriga, Status: Pen, Time: 2:30 PM FUV, Provider: Jackie Barriga, Status: Pen, Time: 2:30 PM [facility] [address] Work Phone: Start: 01-10-2022 Influenza vaccination Sequenti al Influenza Vaccine (#1) [facility] Comment on above: Postponed from 03/14 (Patient Refused) Start: 09-10-2021 COVID-19 Vaccine (3 - Booster for Pfizer series) COVID-19 Vaccine (3 - Booster for Pfizer series) [facility] Start: 08-23-2021 End: 08-23-2021 Patient encounter procedure 08/23/2021 Office Visit Primary Care Lili, Katrin Hernandez, [employer] [address] [place] [address] [facility] Start: 06-07-2021 COVID-19 Vaccine (3 - Pfizer series) COVID-19 Vaccine (3 - Pfizer series) [facility] Start: 06-17-2020 History and physical examination, annual for health maintenance Wellness Visit [facility] Start: 05-17-2020 Depression screening using PHQ-9 (Patient Health Questionnaire 9) score DEPRESSION SCREENING (PHQ9) [facility] Start: 05-17-2020 History and physical examination, annual for health maintenance Wellness Visit [facility] Start: 03-29-2020 Antibody hiv-1 HIV Antigen/An tibody Screen [employer] Phone: Start: 03-29-2020 Antibody rubella Rubella IgG Antibod y Estrogen [facility] Work Phone: Start: 03-29-2020 Hemoglobin Identification Hemoglobin Identification [employer] Phone: Start: 03-29-2020 Hepatitis c antibody [facility] Start: 03-29-2020 Iaad ia hepatitis b surface antigen Hepatitis B Surface Antigen [employer] Phone: Start: 03-29-2020 Iadna chlamydia trachomatis amplified probe tq GC + Chlamydia By Amplified Detection [facility] Work Phone: Start: 03-29-2020 SYPHILIS SCREENING W ITH REFLEX SYPHILIS SCREENING WITH REFLEX [facility] Work Phone: Start: 03-29-2020 Type and Screen Type and Screen [place] [address] Work Phone: Start: 03-17-2020 Depression Remission Assessment (PHQ9) Depression Remission Assessment (PHQ9) [facility] Start: 03-14-2020 Influenza vaccinatio n given Sequential Influenza Vaccine (Season Ended) [facility] Start: 01-11-2020 Influenza vaccinatio n given SEQUENTIAL INFLUENZA VACCINE (#1) [facility] Comment on above: Postponed from 03/14 (Patient Refused) Start: 08-17-2019 End: 08-17-2019 Office Visit [facility] Start: 02-08-2018 Varicella vaccination Varicell a Vaccines (1 of 2 - 2-dose childhood series) [facility] Start: 2013 Screening for malign ant neoplasm of cervix [facility] Start: 2010 Hepatitis C screening Hepatitis C Sc reening [facility] [facility] Start: 2007 HIV screening HIV Screening [facility] Start: 03-31-1996 Hepatitis B Vaccines (2 of 3 - 3-dose series) Hepatitis B Vaccines (2 of 3 - 3-dose series) [facility] Start: 1995 History and physical examination, annual for health maintenance Wellness Visit [facility] Start: 1992 Lipid panel Lipid Panel [facility] Start: 1992 Screening for malign ant neoplasm of cervix PAP SMEAR [facility] Start: 1992 Tetanus [facility] Start: 1992 Yearly Adult Physical Yearly Adult P hysical [facility] End: 09-17-2024 Chlamydia trachomatis rRNA assay Chlamydia/GC/Trichomona s Amplified RNA Microbiology Routine Vaginal discharge Dyspareunia in female 1 Occurrences starting 09/18/2023 until 09/17/2024 [facility] Work Phone: Comment on above: 1 Occurrences starti ng 09/18/2023 until 09/17/2024 Chlamydia trachomati s rRNA assay Chlamydia/GC/Trichomona s Amplified RNA Microbiology Routine Vaginal discharge Dyspareunia in female 09/18/2023 2:43 PM EST [facility] Cobalamin (Vitamin B 12) [Mass/volume] in Serum or Plasma [facility] Cytology report of Cervical or vaginal smear or scraping Cyto stain.thin prep [facility] End: 09-17-2024 Gardnerella vaginalis rRNA assay Vaginitis DNA Probes Microbiology Routine Vaginal discharge 1 Occurrences starting 09/18/2023 until 09/17/2024 [facility] Comment on above: 1 Occurrences starti ng 09/18/2023 until 09/17/2024 Gardnerella vaginali s rRNA assay Vaginitis DNA Probes Microbiology Routine Vaginal discharge 09/18/2023 2:43 PM EST [facility] Glucose [Mass/volume ] in Serum or Plasma [facility] End: 09-17-2024 Hepatitis B surface antibody measurement Hepatitis B Surface antibody Lab Routine Pre-employment examination 1 Occurrences starting 09/18/2023 until 09/17/2024 [facility] Comment on above: 1 Occurrences starti ng 09/18/2023 until 09/17/2024 Hepatitis B surface antibody measurement Hepatitis B Surface antibody Lab Routine Pre-employment examination 09/18/2023 2:49 PM EST [facility] End: 09-17-2024 Hepatitis B surface antigen measurement Hepatitis B Surface Antigen Lab Routine Pre-employment examination 1 Occurrences starting 09/18/2023 until 09/17/2024 [facility] Comment on above: 1 Occurrences starti ng 09/18/2023 until 09/17/2024 Hepatitis B surface antigen measurement Hepatitis B Surface Antigen Lab Routine Pre-employment examination 09/18/2023 2:49 PM EST [facility] Herpes simplex virus identified in Unspecified specimen by Organism specific culture [facility] Herpes simplex virus identified in Unspecified specimen by Organism specific culture [facility] Lipid 1996 panel - Serum or Plasma [facility] Liquid based cervica l cytology screening [facility] End: 09-17-2024 Measurement of Measles virus antibody Rubeola Antibody, IgG Lab Routine Pre-employment examination 1 Occurrences starting 09/18/2023 until 09/17/2024 [facility] Comment on above: 1 Occurrences starti ng 09/18/2023 until 09/17/2024 Measurement of Measl es virus antibody Rubeola Antibody, IgG Lab Routine Pre-employment examination 09/18/2023 2:49 PM EST [facility] Microscopic examinat ion of vaginal Papanicolaou smear Thinprep Pap Smear Pathology and Cytology Routine Routine gynecological examination Ordered: 06/17/2019 [facility] Comment on above: Ordered: 06/17/2019 End: 09-17-2024 MTB SCREEN MTB SCREEN Lab Routine Pre-employment examination 1 Occurrences starting 09/18/2023 until 09/17/2024 [facility] Comment on above: 1 Occurrences starti ng 09/18/2023 until 09/17/2024 MTB SCREEN MTB SCREEN Lab R outine Pre-employment examination 09/18/2023 2:49 PM EST [facility] End: 09-17-2024 Mumps IgG level Mumps Antibody, IgG Lab Routine Pre-employment examination 1 Occurrences starting 09/18/2023 until 09/17/2024 [facility] Comment on above: 1 Occurrences starti ng 09/18/2023 until 09/17/2024 Mumps IgG level Mumps Antibody, IgG Lab Routine Pre-employment examination 09/18/2023 2:49 PM EST [facility] Neisseria gonorrhoea e nucleic acid detection Chlamydia/Gonorrhoeae Amplified RNA Microbiology Routine Vaginal discharge Dyspareunia in female 09/18/2023 2:43 PM EST [facility] Path report.final Dx Spec [facility] Patient referral [facility] Work Phone: T4 free measurement [facility] Thyroid stimulating hormone measurement [facility] Trichomonas vaginali s Amplified RNA Trichomonas vaginalis Amplified RNA Microbiology Routine Vaginal discharge Dyspareunia in female 09/18/2023 2:43 PM EST [facility] Thyroid gland [facility] Vitamin D, 25-hydrox y measurement [facility] NEGATED: Highlighted row has been ruled out! Planned Goals not documented [address] Work Phone: Immunizations Immunization Date Immunization Notes Care Provider [facility] 05-24-2024 influenza, injectabl e, madin yris canine kidney, preservative free Dr. Vilma Min MD Work Phone: [facility] 05-24-2024 Influenza, injectabl e, Madin Ryis Canine Kidney, preservative free, quadrivalent Dr. Vilma Min MD Work Phone: [facility] 10-31-2023 hepatitis B vaccine, adult dosage Jackie Hodge LPN [facility] 10-31-2023 hepatitis B vaccine, unspecified formulation Kam Mayberry MD Work Phone: [facility] 09-26-2023 hepatitis B vaccine, adult dosage Jackie Hodge LPN [facility] 09-26-2023 hepatitis B vaccine, unspecified formulation Jackie Naveen MORFIN [facility] 04-12-2021 Pfizer SARS-CoV-2 Vaccination [facility] Work Phone: [facility] 03-22-2021 Pfizer SARS-CoV-2 Vaccination [facility] Work Phone: [facility] 07-21-2020 influenza, injectabl e, quadrivalent, preservative free [facility] Work Phone: [facility] 07-21-2020 tetanus toxoid, reduced diphtheria toxoid, and acellular pertussis vaccine, adsorbed [facility] [employer] Work Phone: [facility] 07-21-2020 influenza virus vaccine, unspecified formulation Nikki Stevens MD Work Phone: [facility] Work Phone: 01-11-2018 measles, mumps and rubella virus vaccine [facility] Work Phone: [facility] 03-03-1996 diphtheria, tetanus toxoids and acellular pertussis vaccine Dr. Vilma Min MD Work Phone: [facility] 03-03-1996 diphtheria, tetanus toxoids and acellular pertussis vaccine, unspecified formulation [facility] Work Phone: [facility] 03-03-1996 hepatitis B vaccine, pediatric or pediatric/adolescent dosage [facility] Work Phone: [facility] 03-03-1996 trivalent poliovirus vaccine, live, oral [facility] [employer] Work Phone: [facility] 11-04-1994 DTP-Haemophilus influenzae type b conjugate vaccine [facility] [employer] Work Phone: [facility] 11-04-1994 measles, mumps and rubella virus vaccine [facility] Work Phone: [facility] 11-04-1994 trivalent poliovirus vaccine, live, oral [facility] [employer] Work Phone: [facility] 07-04-1993 diphtheria, tetanus toxoids and acellular pertussis vaccine Dr. Vilma Min MD Work Phone: [facility] 07-04-1993 diphtheria, tetanus toxoids and pertussis vaccine [facility] Work Phone: [facility] 07-04-1993 haemophilus influenz ae type b vaccine, conjugate unspecified formulation [facility] Work Phone: [facility] 07-04-1993 haemophilus influenz ae type b vaccine, PRP-T conjugate Dr. Vilma Min MD Work Phone: [facility] 07-04-1993 trivalent poliovirus vaccine, live, oral [facility] Work Phone: [facility] Payers Date Payer Category Payer Self-pay 2024 Unknown [id number] 2023 Private Health Insurance [id number] 2017 Medicaid [id number] 2017 Medicaid [place] Sofia [place] [employer] [place] [id number] 2017-Present [phone] [id number] 2017 Unknown [id number] 2017 Unknown 2017 Private Health Insurance 1992 Unknown [id number] 2.16.840.1.315866.3.579.2.3 56 1992 Unknown [id number] 2.16.840.1.276969.3.579.2.3 56 1992 Unknown [id number] 2.16.840.1.285749.3.579.2.3 56 1992 Unknown [id number] 2.16.840.1.330922.3.579.2.3 56 1992 Unknown [id number] 2.16.840.1.009157.3.579.2.1 244 1992 Unknown [id number] 2.16.840.1.065270.3.579.2.9 03 1992 Unknown [id number] 2.16.840.1.017076.3.579.2.9 03 1992 Unknown [id number] 2.16.840.1.758052.3.579.2.1 243 1992 Unknown [id number] 2.16.840.1.267338.3.579.2.1 243 1992 Unknown [id number] 2.16.840.1.571772.3.579.2.9 03 1992 Unknown [id number] 2.840.1.101716.3.579.2.9 03 1992 Unknown [id number] 2.16.840.1.127087.3.579.2.9 03 1992 Unknown [id number] 2.840.1.720743.3.579.2.9 03 Private Health Insurance [id number] Unknown [id number] 2.840.1.685471.3.579.2.4 62 Unknown [id number] 2840.1.598085.3.579.2.4 62 Unknown [id number] 2.840.1.792930.3.579.2.4 62 Unknown [id number] 2.840.1.947354.3.579.2.4 62 Unknown [id number] 2.16.840.1.840633.3.579.2.4 62 Unknown [id number] 2.16840.1.599594.3.579.2.4 62 Unknown [id number] 2.840.1.988019.3.579.2.4 62 Unknown [id number] 2.16.840.1.109851.3.579.2.4 62 Unknown [id number] 2.16.840.1.815935.3.579.2.4 62 Unknown [id number] 2.16.840.1.401191.3.579.2.4 62 Unknown [id number] 2.16.840.1.819984.3.579.2.4 62 Unknown [id number] 2.16.840.1.842991.3.579.2.4 62 Unknown [id number] 2.16.840.1.245747.3.579.2.4 62 Unknown [id number] 2.16.840.1.423269.3.579.2.4 62 Unknown [id number] 2.16.840.1.126647.3.579.2.4 62 Unknown [id number] 2.16.840.1.216189.3.579.2.4 62 Unknown [id number] 2.16.840.1.604500.3.579.2.4 62 Unknown [id number] 2.16.840.1.094916.3.579.2.4 62 Unknown [id number] 2.16.840.1.971985.3.579.2.4 62 Unknown [id number] 2.16.840.1.664984.3.579.2.4 62 Unknown [id number] 2.16.840.1.928914.3.579.2.4 62 Unknown [id number] 2.16.840.1.343794.3.579.2.4 62 Unknown [id number] 2.16.840.1.678621.3.579.2.4 62 Unknown [id number] 2.16.840.1.543767.3.579.2.4 62 Unknown [id number] 2.16.840.1.348438.3.579.2.4 62 Unknown [id number] 2.16.840.1.003137.3.579.2.4 62 Unknown [id number] 2.16.840.1.001229.3.579.2.4 62 Unknown [id number] 2.16.840.1.594681.3.579.2.4 62 Unknown [id number] 2.16.840.1.445679.3.579.2.4 62 Unknown [id number] 2.16.840.1.239107.3.579.2.4 62 Unknown [id number] 2.16.840.1.064593.3.579.2.4 62 Unknown [id number] 2.16.840.1.841517.3.579.2.4 62 Unknown [id number] 2.16.840.1.314455.3.579.2.4 62 Unknown [id number] 2.16.840.1.659036.3.579.2.4 62 Unknown [id number] 2.16.840.1.082765.3.579.2.4 62 Unknown [id number] 2.16.840.1.218617.3.579.2.4 62 Unknown [id number] 2.16.840.1.100365.3.579.2.4 62 Social History Date Type Detail Facility Start: 06-17-2019 End: 12-15-2024 Tobacco smoking status IAIS Never smoker [facility] Start: 06-17-2019 End: 10-20-2023 Alcohol intake Ex-drinker (finding) [facility] Start: 05-17-2019 End: 01-06-2020 History SDOH Alcohol Frequency 1 [facility] Start: 05-17-2019 History SDOH Social Connections Get Together 2 [facility] Start: 05-07-2019 Alcohol Comment NO [facility] Start: 1990 Sex Assigned At Not on file [facility] Start: 06-07-2023 End: 06-17-2023 Exposure to SARS-CoV-2 (event) Not sure [facility] Start: 05-01-2023 End: 10-20-2023 No alcohol use No alcohol use [facility] Start: 05-07-2019 End: 10-29-2022 Tobacco use and exposure Smokeless tobacco non-user [facility] Start: 05-01-2023 End: 10-20-2023 Social connection and isolation panel [facility] Frequency of Communication with Friends and Family Not on file [facility] How often to you hav e a drink containing alcohol? Never [facility] (I/We) worried whekristen er (my/our) food would run out before (I/we) got money to buy more. Never true [facility] Start: 10-29-2022 Alcohol Comment occasional [facility] Start: 05-11-2019 Gender identity Identifies as female gender (finding) [facility] Start: 05-11-2019 Sexual orientation Heterosexual (fin ding) [facility] Start: 06-17-2023 Alcohol intake Lifetime non-d giovanni (finding) [facility] Work Phone: Start: 10-15-2024 Sex Female (finding) [facility] Start: 1990 Sex Assigned At Female [facility] NEGATED: Highlighted row - - [facility] Work Phone: Goals Date Patient Goal Desired [...] status health issues are not documented Disease [facility] Work Phone: Mental Status Date Assessment Result Facility 10-15-2024 Cognitive function Voice/Name [facility] Work Phone: NEGATED: Highlighted row Cognitive function [Interpretation] Cognitive status health issues are not documented Disease [address] Work Phone: Clinical Notes 12-14-2020 to 01-26-2025 Note Date & Type Note Facility 01-26-2025 Radiology Diagnostic study note [facility] Imaging Services [address] [place], [place] [id number] L/S Spine Min 4 Views MR#: [id number] Acct: [id number] Name: STEFANIA NICOLE Rep #: [id number] : 1990 F 34 From: Margie Cordova MD PCP: Dr. Vilma Min MD Status: REG CLI Study:L/S Spine Min 4 Views Date of Exam: 01/26/25 Exam# [id number] Ordering Dr: Curtis Crawford EXAM: XR Cervical [...] fracture or significant dynamic instability. Reading Location[facility] CC: SARAH Smith; Dr. Vilma Min MD ~ Machine Tester: Signed [facility] 12-15-2024 Progress note [facility] 12-15-2024 Progress note Note Date/Time December 15, 2024 2:32pm [facility]'s [address], [address] [place] [address] OFFICE VISIT Date of Service: 12/15/24 MR#: [id number] Acct: [id number] Name: STEFANIA NICOLE Rep #: [id number] : 1990 Provider: NEELAM Santizo Age/Sex: 34/F Location: [facility] Status: Signed Intake Vital Signs 12/01/24 08:28 12/15/24 14:00 12/15/24 14:04 Height 5 ft 2 in 5 ft 2 in 5 ft 2 in Weight: 145 lb BMI 26.5 BP 127/85 H Intake Visit Reasons: genital lesion Case Coordinator Required: No Is patient in pain?: No [...] No : No Control Method: ocp- [facility] Medical History GERD (gastroesophageal reflux [...] 2 current occupational status: employed current occupation: [employer]- 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 Vilma Min MD Status: REG CLI Study:Thyroid Date of Exam: 12/08/24 Exam# [id number] Ordering Dr: Imelda Galicia DO PROCEDURE: THYROID, [...] Paper of the ACR TI-RADS Committee, 2017 (https://linkinghub.elsevier.com/retrieve/pii/[email or web address]) Reading Location: [id number] CC: Dr. Vilma Min MD; Dr. Imelda Metzger, DO ~ Machine Tester: Signed [facility]04-04-2025 Procedure note [facility] Medical Records Department [address] [place] [address] Operative Report 10/15/24 0952 MR#: [id number] Acct: [id number] Name: STEFANIA NICOLE Rep #:[id number] : 1990 34 From: Olinda Berrios MD PCP: Dr. 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 Olinda Berrios MD~ Signed [facility]04-04-2025 Discharge summary [facility] Medical Records Department [address] [place] [address] Instructions for Home/Discharge Instructions 10/15/24 0950 MR#: [id number] Acct: [id number] Name: STEFANIA NICOLE Rep #:[id number] : 1990 34 From: Olinda Berrios MD PCP: Dr. Vilma Min MD Status:REG [facility] Discharge Instructions Dressing / Incision Additional Dressing/Incision [...] Attending Provider: Olinda Berrios Primary Care Provider: [place],Vilma Instructions Print Language: Colombian Discharge Orders/Prescriptions Prescriptions: New sulfamethoxazole-trimethoprim [Bactrim] 400-80 [...] CC: Dr. Vilma Min MD ~ Signed [facility]04-04-2025 History and physical note [facility] Medical Records Department [address] [place] [address] History & Physical Exam 10/15/24 0850 MR#: [id number] Acct: [id number] Name: STEFANIA NICOLE Rep #:[id number] : 1990 34 From: Olinda Berrios MD PCP: Dr. Vilma Min MD Status:[facility] Location: [place] [address] History and Physical Date of Admission: 10/15/24 [...] Min MD; Dr. Olinda Berrios MD~ Signed [facility]04-04-2025 [facility] Medical Records Department [address] [place] [address] History Physical Exam 10/15/24 0850 MR#: [id number] Acct: [id number] Name: STEFANIA NICOLE Rep #: [id number] : 1990 34 From: Olinda Berrios MD PCP: Dr. Vilma Min MD Status:[facility] Location: [place] [address] History and Physical Date of Admission: 10/15/24 [...] Vilma Min MD; [facility]. Ol[facility]rios [facility] Evaluation note* Diagnosis Onset Date Resolution Status Admit Date Neoplasm of uncertain behavi or of skin acute October 13, 2024 1:30pm Neoplasm of uncertain behavi or of skin acute October 15, 2024 8:29am [facility] Work Phone: 1(322) 249-778904-02-2025 Evaluation note* Diagnosis Onset Date Resolution Status Admit Date Neoplasm of uncertain behavi or of skin acute October 13, 2024 1:30pm Neoplasm of uncertain behavi or of skin acute October 15, 2024 8:29am Benign neoplasm of skin of scalp acu te October 26, 2024 2:14pm [facility] Work Phone: 1(762) 171-171704-02-2025 Evaluation note* Diagnosis Onset Date Resolution Status Admit Date Neoplasm of uncertain behavi or of skin acute October 13, 2024 1:30pm Neoplasm of uncertain behavi or of skin acute October 15, 2024 8:29am Benign neoplasm of skin of scalp acute October 26, 2024 2:14pm Encounter for routine gynecological examination noneactive December 012024 8:23am [facility] Work Phone: 1(117) 524-650204-02-2025 Evaluation note* Diagnosis Onset Date Resolution Status [...] routine gynecological examination noneactive December 012024 8:23am [facility] Work Phone: 1(747) 133-172304-02-2025 Evaluation note* Diagnosis Onset Date Resolution Status [...] to STI acute December 15, 2024 1:55pm [facility] Work Phone: 1(920) 540-190107-29-2024 Telephone encounter Note* Telephone Encounter - Jackie Hodge LPN - 02/09/2024 8:05 AM EDT Last OV 10/20/23. Next OV 03/01/24. [id number] Miscellaneous Notes* Telephone Encounter - Jackie Hodge LPN - 02/09/2024 8:05 AM EDT Last OV 10/20/23. Next OV 03/01/24. documented in this [id number] Telephone encounter Note* Telephone Encounter - Jackie Hodge LPN - 12/09/2023 8:35 AM EDT Last OV 10/20/23. Next OV 05/06/24. [id number] Miscellaneous Notes* Telephone Encounter - Jackie Hodge LPN - 12/09/2023 8:35 AM EDT Last OV 10/20/23. Next OV 05/06/24. documented in this [id number] History of Present illness Narrative* Jackie Hodge [...] injection 6 months from , so around end of March beginning of April. Pt reportthat she has an appointment with Dr. Grace on 05/06/24 and wants to know if she can wait and get it during this appointment. I advised that we will double check with Dr. Grace and let her know. documented in this [id number] History of Present illness Narrative* Silvano Grace MD - 10/31/2023 8:37 PM EDT Yes that would be fine * Jackie Hodge LPN - 10/31/2023 2:52 PM EDT Pt here for 2nd Hep B vaccination. Pt received this in her right deltoid without difficulty. Pt scheduled for 3rd injection 6 months from , so around end of March beginning of April. Pt reportthat she has an appointment with Dr. Grace on 05/06/24 and wants to know if she can wait and get it during this appointment. I advised that we will double check with Dr. Grace and let her know. documented in this [id number] History of Present illness Narrative* Silvano Grace MD - 10/20/2023 10:53 AM EDT Chief Complaint Patient presents with Discuss Birthcontrol Options HPI: Stefania Nicole is a 33 y.o. female presenting today for an annual. Former patient of [facility]. Patient is relatively healthy with previous history of mild depression and anxiety. Pulled IUD out and pain is better Pap smear next year follows up with [facility] in [place]. She states it started about 10 days [...] following: Height as of this encounter: 5' 2. Weight as of this encounter: 65.8 kg [...] Hepatitis C Screening Never done COVID-19 Vaccine (2022- season) 2023 Assessment & Plan Problem List [...] No follow-ups on file. SILVANO GRACE MD [facility] [address] [facility] [address] [facility] [id number] Dept: [phone] 05/17/2019 3:00 PM 05/01/2023 3:40 PM Depression [...] Not difficult at all documented in this [id number] Evaluation + Plan note* Assessment & Plan [...] her obgyn. Dr. Grace placed all orders. [id number] History of Present illness Narrative* Jacinda Jones [...] Exam Vitals reviewed. Exam conducted with a counter server present. Constitutional: Appearance: Normal appearance. Cardiovascular: Rate [...] Antigen SILVANO GRACE MD Family Medicine Physician [place] [phone] documented in this [id number] Miscellaneous Notes* Assessment & Plan Note - [...] performed by Dr. Grace. documented in this [id number] Evaluation + Plan note* Assessment & Plan Note - Jacinda Jones - 09/18/2023 4:11 PM ESTAssociated Problem(s): Dyspareunia in female LIZETT wet prep test performed. STD testing performed. Pelvic exam performed no cervical motion tenderness noted with bimanual exam. Speculum exam white, cured-like discharge noted on cervix. Prescribed clotrimazole 1% cream for one week. [id number] Evaluation + Plan note* Assessment & Plan Note - Jacinda Jones - 09/18/2023 3:07 PM ESTAssociated Problem(s): Vaginal discharge LIZETT wet prep test performed. Pelvic exam performed no cervical motion tenderness noted with bimanual exam. Speculum exam white, cured-like discharge noted on cervix. Prescribed drospirenone-ethinyl estradiol 0.03mg tablets and clotrimazole 1% cream for one week. Exam performed by Dr. Grace. 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 Hemorrhoids: Fullness inside and one outside since [...] following: Height as of this encounter: 5' 2. Weight as of this encounter: 69.4 kg [...] will be done through women's care in [place]. Refusing influenza and COVID shots. Low concern [...] Annual Exam. SILVANO GRACE MD [facility] [address] [facility] [address] [facility] [id number] Dept: [phone] 05/17/2019 3:00 PM 05/01/2023 3:40 PM Depression [...] Not difficult at all documented in this [id number] Evaluation + Plan note* Assessment & Plan [...] Holding off on x-ray or RUQ ultrasound. [id number] Miscellaneous Notes* Assessment & Plan Note - [...] will be done through women's care in [place]. Refusing influenza and COVID shots. Low concern for HIV and hepatitis C at this time. No concern for early screening for breast cancer or colon cancer. documented in this [id number] Evaluation + Plan note* Assessment & Plan Note - Silvano Grace MD - 05/02/2023 3:58 PM EDTAssociated Problem(s): Hemorrhoid Stable no concerns [id number] Evaluation + Plan note* Assessment & Plan Note - Silvano Grace MD - 05/02/2023 3:58 PM EDTAssociated Problem(s): Skin mole Continue to monitor, currently benign mole with no change in features with increased depth, size orhyperpigmentation. [id number] Evaluation + Plan note* Assessment & Plan Note - Silvano Grace MD - 05/02/2023 3:58 PM EDTAssociated Problem(s): Wellness examination Pap smear will be done through women's care in [place]. Refusing influenza and COVID shots. Low concern for HIV and hepatitis C at this time. No concern for early screening for breast cancer or colon cancer. [id number] NoteDiagnoses/Problems Assessed General counseling and advice for [...] MOUTH EVERY DAY Vitals Vital Signs Recorded: [id number] 03:43PM Dpyzeqmr045 Ptvhkqwta73 Height5 ft 3 in Ujyhic641 lb 6 oz BMI Ggfgitdzub90.57 kg/m2 BSA Calculated1.68 UAE49Fam8828 Physical Exam Constitutional: Alert and in no acute distress. Well developed, well nourished Pulmonary: No respiratory distress Psychiatric: alert and oriented x 3., affect normal to patient baseline, mood: appropriate and judgment and insight: intact Signatures Electronically signed by : MELBA Amin; Feb 20 2023 4:11PM EST (Author) [id number] History of Present illness NarrativePatient is here [...] is not utilizingTylenol which does seem to help.[facility] [address] Work Phone: 1(817) 804-329403-14-2022 Telephone encounter Note* Telephone Encounter - Salty Brown LPN - 09/24/2021 1:44 PM EDT Attempted to call pt. No answer. Message left informing pt of Zoloft refills. Advised pt to call the office at [phone] with any questions or concerns. [id number] Miscellaneous Notes* Telephone Encounter - Salty Brown LPN - 09/24/2021 1:44 PM EDT Attempted to call pt. No answer. Message left informing pt of Zoloft refills. Advised pt to call the office at [phone] with any questions or concerns. documented in this [id number] History of Present illness Narrative* Jacinda Greco MA - 08/27/2021 12:31 PM EST Mailed ANUSHA to Stefania asking her to merle out and mail back Our last ANUSHA was dated 05/01 [facility] will not release records until they have updated ANUSHA. Trying to get records and labs from Dr. Mancuso. * Jacinda Greco MA - 07/24/2021 4:16 PM EST Faxed ANUSHA to [facility] and for labs. (08/13/[address] Mancuso office for records [phone]. * Katrin Pearson CNP - 07/24/2021 3:29 [...] medications. Katrin Pearson CNP documented in this [id number] Miscellaneous Notes* Assessment & Plan Note - [...] cause anxiety and depression. documented in this [id number] Miscellaneous Notes* Assessment & Plan Note - [...] cause anxiety and depression. documented in this [id number] History of Present illness Narrative* Jacinda Greco MA - 07/24/2021 4:16 PM EST Faxed ANUSHA to Susan Osorio and for labs. (08/13/[address] Mancuso office for records [phone]. * Katrin Pearson CNP - 07/24/2021 3:29 [...] medications. Katrin Pearson CNP documented in this [id number] Instructions* Patient Instructions* Katrin Pearson CNP - [...] look into their status. Customer Service/Billing Questions: [phone] MyChart Assistance: [phone] or [phone] Financial Assistance: [phone] or [phone] documented in this [id number] Instructions* Patient Instructions* Katrin Pearson CNP - [...] look into their status. Customer Service/Billing Questions: [phone] MyChart Assistance: [phone] or [phone] Financial Assistance: [phone] or [phone] documented in this [id number] History of Present illness Ajuqkkrfb50-lkte-enk presents for IUD follow-up. Patient notes a little bit heavier bleeding last day or 2. Patient was ever since placement she felt the strings were too long they poked her GI to talk to himand sometimes. Patient notes minimal no cramps. Patient has not had intimacy.[address] Work Phone: discharge summary Author Olinda Berrios [facility] Note Date/Time October 15, 2024 9:52 am [facility] Medical Records Department [address] [place] [address] Instructions for Home/Discharge Instructions 10/15/24 0950 MR#: [id number] Acct: [id number] Name: STEFANIA NICOLE Rep #:[id number] : 1990 34 From: Olinda Berrios MD PCP: Dr. Vilma Min MD Status:[facility] Discharge Instructions Dressing / Incision Additional Dressing/Incision [...] Care Provider: Vilma Min Instructions Print Language: Colombian Discharge Orders/Prescriptions Prescriptions: New sulfamethoxazole-trimethoprim [Bactrim] 400-80 [...] can be placed): Home, Self Care 10/15/24 5728<Electronically signed by Olinda Berrios MD>Olinda Berrios MD CC: Dr. Vilma Min MD ~ Signed [facility] Work Phone: Evaluation note* Diagnosis Anxiety with depression- Primary Wellness examination Bug bite, initial encounter [facility] Diagnosis Anxiety with depression [facility] Diagnosis Skin mole Benign neoplasm of skin, site unspecified Wellness examination Hemorrhoids, unspecified hemorrhoid type Rib pain Unspecified chest pain [facility] Diagnosis Cervical cancer screening- Primary Screening for malignant neoplasm of the cervix Encounter for annual routine gynecological examination Encounter for surveillance of contraceptive pills documented in this encounter [facility] Work Phone: Evaluation note* Diagnosis Vaginal discharge- [...] [facility] Author Olinda Berrios [facility] Note Date/Time October 15, 2024 8:52 am [facility] Medical Records Department [address] [place] [address] History & Physical Exam 10/15/24 0850 MR#: [id number] Acct: [id number] Name: STEFANIA NICOLE Rep #:[id number] : 1990 34 From: Olinda Berrios MD PCP: Dr. Vilma Min MD Status:[facility] Location: [place] [address] History and Physical Date of Admission: 10/15/24 [...] Min MD; Dr. Olinda Berrios MD~ Signed [facility] Work Phone: History of Present illness Narrative* Ms. Schafer is a 32-year-old female seen by self-referral for evaluation of hemorrhoids. * She has never had a colonoscopy. She has no family history of colon or rectal cancer. [facility] Work Phone: Instructions* Name Dates Details Instructions not documented [address] Work Phone: Reason for referral (narrative)No reason for referral information availableWAsht[facility] Work Phone: Summary Purpose Family History No [...] Relationship Condition Age at Onset Recorded Date/T holils grandfather Malignant neoplasm Unknown Alcohol abuse Unknown grandmother Malignant neoplasm of breast Unknown Diabetes mellitus Unknown father Diabetes mellitus Unknown grandmother Diabetes mellitus Unknown grandfather Cardiac disease Unknown mother Alcohol abuse Unknown Hypertension Unknown father Hypertension Unknown Advance Directives No Advanced Directives Records FoundDocuments on File Type Date Recorded 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 documented in this encounter* Spring, Katrin Hernandez, DREW - 05/17/2019 3:18 PM EST Subjective Patient [...] and stress. She states she is exhausted. 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) December 01, 2024 8:23a m LABS December 01, 2024 8:57a m ENLARGED THYROID December 08, 2024 2:57p m genital lesion December 15, 2024 1:55p m Chief Complaint Admit Date SPOT ON HEAD October 13, 2024 1:30 pm post op lesion October 26, 2024 2:1 4pm LABS November 04, 2024 11: 08am LABS November 09, 2024 12: 20pm LABS November 11, 2024 9:33am E-ORDER November 18, 2024 10:22a m 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) December 01, 2024 8:23a m LABS December 01, 2024 8:57a m ENLARGED THYROID December 08, 2024 2:57p m genital lesion December 15, 2024 1:55p m LABS February 03, 2025 10:1 5am Additional Source Comments INFORMATION SOURCE (unrecogn ized section and content) DATE CREATED AUTHOR 01/06/2018 [facility] DATE CREATED AUTHOR AUTHOR'S ORGANIZ ATION 01/19/2018 [facility] DATE CREATED AUTHOR AUTHOR'S ORGANIZ ATION 03/16/2022 [facility] DATE CREATED AUTHOR AUTHOR'S ORGANIZ ATION 02/21/2023 [facility] DATE CREATED AUTHOR AUTHOR'S ORGANIZ ATION 02/21/2023 [facility] [place] DATE CREATED AUTHOR AUTHOR'S ORGANIZ ATION 07/06/2023 [facility] DATE CREATED AUTHOR AUTHOR'S ORGANIZ ATION 09/22/2023 [facility] DATE CREATED AUTHOR AUTHOR'S ORGANIZ ATION 02/20/2024 [facility] DATE CREATED AUTHOR AUTHOR'S ORGANIZ ATION 12/18/2024 [facility] DATE CREATED AUTHOR AUTHOR'S ORGANIZ ATION 04/02/2025 [facility] Reason for Visit (unrecogniz ed section and content) Reason Comments Gynecologic Exam Pt would like to dis cuss control medications Reason Comments bump on lip x1.5 months unsure i f she bit her lip in her sleep or not Reason Comments Establish Care >3 months Pt reports would like to discuss depression and anxiety episodes Reason Comments Insect Bite Noticed Friday taylor ng Reason Onset Date Comments Medication Refill 09/24/2021 Reason Comments Annual Exam Pt declines flu shot today. Gap Closure (Health Maintenance) HIV Scr eening Never doneHepatitis C Screening Never doneDepression Screening (PHQ-2/9) due on 05/17/2020Wellness Visit due on 06/17/2020Pap Smear due on 06/17/2022equential Influenza Vaccine(1) due on 3COVID-19 Vaccine(2022- season) due on 03/14/2023 Reason Comments Vaginal [...] 2024 End: September 06, 2024 Kirstie Carter DRY FOLDER CLOTH, DRY FOLDER CLOTH-C Attending Provider Active Start: September 06, 2024 End: September 06, 2024 Kirstie Carter DRY FOLDER CLOTH, DRY FOLDER CLOTH-C Referring Provider Active Start: September 06, 2024 [...] End: November 09, 2024 Kirstie Carter NP DRY FOLDER CLOTH-C Attending Provider Active Start: November 09, 2024 [...] Provider Active S tart: November 22, 2024 Hand Paint Mixer Relationship Specialty Start Date End Date SpringKatrin ELECTRIC MOTORMAN PCP - General Nurse Practitioner 05/07/19 Hand Paint Mixer Relationship Specialty Start Date End Date SpringKatrin ELECTRIC MOTORMAN PCP - General Nurse Practitioner 05/07/19 Hand Paint Mixer Relationship Specialty Start Date End Date Silvano Grace MD [facility] [place] [id number] PCP - General Family Medicine 10/29/22 Hand Paint Mixer Relationship Specialty Start Date End Date Silvano Grace MD [address] [place], [place] [id number] PCP - General Family Medicine 10/29/22 Hand Paint Mixer Relationship Specialty Start Date End Date Silvano Grace MD [facility] [place] [id number] PCP - General Family Medicine 10/29/22 Hand Paint Mixer Relationship Specialty Start Date End Date Silvano Grace MD [facility] [place] [id number] PCP - General Family Medicine 10/29/22 Hand Paint Mixer Relationship Specialty Start Date End Date Silvano Grace MD [facility] [address] [address] PCP - General Family Medicine 10/29/22 Hand Paint Mixer Relationship Specialty Start Date End Date Silvano Grace MD [address] [id number] PCP - General Family Medicine 10/29/22 Hand Paint Mixer Relationship Specialty Start Date End Date Silvano Grace MD [address] [place] [address] PCP - General Family Medicine 10/29/22 Hand Paint Mixer Relationship Specialty Start Date End Date Silvano Grace MD [facility] [address] [address] PCP - General Family Medicine 10/29/22 Hand Paint Mixer Relationship Specialty Start Date End Date Silvano Grace MD [address] [place] [id number] PCP - General Family Medicine 10/29/22 Dell Wiggins PA-C [address] [place] [address] Dr Underwood [address] [place] [address] Physician C Architect Physician C Architect 12/18/23 Team Status: Inactive Member Role Status Dates Dr. Vilma Min MD Primary Care Provider Active Start: July 01, 2024 End: July 01, 2024 SARAH Packer Attending Provider Active Start: July 01, 2024 End: July 01, 2024 SARHA Packer Referring Provider Active Start: July 01, 2024 End: July 01, 2024 Team Status: Inactive Member Role Status Dates Dr. Vilma Min MD Primary Care Provider Active Start: November 22, 2024 End: November 22, 2024 Rae Nogueira CNM Attending Provider Active S tart: November 22, 2024 End: November 22, 2024 Rae Jero , CNM Referring Provider Active S tart: November [...] Active Start: October 15, 2024 Dr. Olinda Beriros MD Referring Provider Active Start: October 15, [...] 2024 End: November 09, 2024 Kirstie Carter NP, DRY FOLDER CLOTH-C Attending Provider Active Start: November 09, 2024 [...] January 26, 2025 End: January 26, 2025 Team Status: Inactive Member Role/Relationship Status Dates Dr. Vilma Min MD Primary Care Provider Active Start: February 03, 2025 End: February 03, 2025 NEELAM Grove Attending Provider Active Start: February 03, 2025 End: February 03, 2025 FOR RECORDS PERTAINING TO PATIENTS WHO [...] BE BASED ON THE PRIMARY CLINICAL RECORDS. [facility]. provides no warranty or guarantee of the accuracy or completeness of information in this document.
[2025-04-03 08:54] LABS: hCG Titer Quant., Serum 86 mIU/mL (<9 non-preg)
== END | disposition home or self-care (01) ==
LOC: LAB 07:41
PROVIDERS: PCP Internal Medicine; Referring Provider Advanced Practice Midwife; Visit Provider Advanced Practice Midwife
DX: N91.2 Amenorrhea, unspecified (principal)
CPT/HCPCS: 36415; 84702

== ENCOUNTER → 2025-04-05 | Outpatient (CLI) | payer OTHER, SELFPAY ==
[2025-04-05 12:18] LABS: hCG Titer Quant., Serum 266 mIU/mL (<9 non-preg)
== END | disposition home or self-care (01) ==
LOC: LAB 11:02
PROVIDERS: PCP Internal Medicine; Visit Provider Advanced Practice Midwife
DX: Z34.90 Encounter for supervision of normal pregnancy, unspecified, unspecified trimester (principal)
CPT/HCPCS: 36415; 84702

== ENCOUNTER → 2025-04-12 | Outpatient (CLI) | payer OTHER, SELFPAY ==
[2025-04-12 17:49] LABS: hCG Titer Quant., Serum 9296 mIU/mL (<9 non-preg)
== END | disposition home or self-care (01) ==
LOC: LAB 16:38
PROVIDERS: PCP Internal Medicine; Referring Provider Obstetrics & Gynecology; Visit Provider Obstetrics & Gynecology
DX: N91.2 Amenorrhea, unspecified (principal); Z87.59 Personal history of other complications of pregnancy, childbirth and the puerperium
CPT/HCPCS: 36415; 84702

== ENCOUNTER → 2025-04-22 | Outpatient (CLI) | payer OTHER, SELFPAY ==
[2025-04-22 10:01] LABS: hCG Titer Quant., Serum 99750 mIU/mL (<9 non-preg)
== END | disposition home or self-care (01) ==
LOC: LAB 08:25
PROVIDERS: PCP Internal Medicine; Referring Provider Obstetrics & Gynecology; Visit Provider Obstetrics & Gynecology
DX: O26.859 Spotting complicating pregnancy, unspecified trimester (principal); Z3A.00 Weeks of gestation of pregnancy not specified
CPT/HCPCS: 36415; 84702

== ENCOUNTER → 2025-04-25 | Outpatient (CLI) | payer OTHER, SELFPAY ==
[2025-04-25 10:48] LABS: hCG Titer Quant., Serum 143245 mIU/mL (<9 non-preg)
== END | disposition home or self-care (01) ==
LOC: LAB 08:51
PROVIDERS: PCP Internal Medicine; Visit Provider Obstetrics & Gynecology
DX: O26.859 Spotting complicating pregnancy, unspecified trimester (principal); Z3A.00 Weeks of gestation of pregnancy not specified
CPT/HCPCS: 36415; 84702

== ENCOUNTER → 2025-04-25 | Outpatient (CLI) | payer OTHER, SELFPAY ==
--- NOTE | 2025-04-25 15:16 | US_ITS ---
PROCEDURE: TRANSVAGINAL W/PREG US 04/25/2025 REASON FOR EXAM: RULE OUT MOLAR TECHNIQUE: Procedure Code: USTVAGP Modality: US Procedure: TRANSVAGINAL W/PREG US COMPARISON: None FINDINGS Uterus measures 13.1 x 8.2 x 6.2 cm. No uterine fibroid noted. Cervix is closed. Gestational sac with diameter of 2.9 cm and yolk sac of 3 mm. CRL measures 10 mm. Overall sonographic gestational age of 7 weeks and 4 day with MEE of 12/08/2025. heart rate of 129 beats per minute. Anechoic/hypoechoic structure adjacent to the gestational sac measuring 0.9 x 1 x 0.3 cm and 1.3 x 0.4 x 0.6 cm. Right ovary measures 4.3 x 2.1 x 1.8 cm and left ovary measures 3.5 x 2.6 x 2.4 cm. Normal vascular flow is noted within bilateral ovaries. Minimal free fluid noted within the cul-de-sac. US/Transvaginal w/Preg US IMPRESSION: Sonographic gestational age of 7 weeks and 4 day with MEE of 12/08/2025. Nonspecific anechoic/hypoechoic structure adjacent to the gestational sac measu ring 0.9 x 1 x 0.3 cm and 1.3 x 0.4 x 0.6 cm. Consider close follow-up ultrasound and monitoring beta hCG and dumpcart driver consulta tion for further evaluation. Reading Location: [id number]
== END | disposition home or self-care (01) ==
LOC: US 14:56
PROVIDERS: PCP Internal Medicine; Referring Provider Obstetrics & Gynecology; Visit Provider Obstetrics & Gynecology
DX: O26.859 Spotting complicating pregnancy, unspecified trimester (principal); Z3A.00 Weeks of gestation of pregnancy not specified
CPT/HCPCS: 76817

== ENCOUNTER → 2025-05-10 | Outpatient (CLI) | payer OTHER, SELFPAY ==
--- OUTSIDE RECORDS SUMMARY | 2025-05-10 15:28 | XMS RPT_ITS | CCD ---
Author Organization [facility] Care Team Providers Care Ski Patrol Director Name Role Phone Kartik, Nelly Unavailable Unavailable [...] Unavail able Katrin Pearson Primary Care Provider Columbia, Carole Unavailable Unavailable None, No PCP Unavailable Unavailable None, No PCP Unavailable Unavailable Unavailable Unavailable Columbia DO, Carole Unavailable Unavailable None, No PCP Unavailable Unavailable Spring Katrin RUSSELL Primary Care Provider Unavailable Unavailable Ms. Jackie Barriga Attending Unavaila ble PCP, Pt States None Referring Unavailable FRIED, CNM, SPOUT POSITIONER NIKKI DHAVAL Attending Unava ilable FRIED, CNM, SPOUT POSITIONER NIKKI DHAVAL Referring Unava ilable FRIED, CNM, SPOUT POSITIONER NIKKI DHAVAL Attending Unava ilable FRIED, CNM, SPOUT POSITIONER NIKKI DHAVAL Referring Unava ilable MICHELE THORNTON Attending Unavailable PCP, Pt States None Referring Unavailable Silvano Grace MD Primary Care Pro vider Unavailable Primary Care Provider Unavailabl e NIKKI STEVENS Attending Unavailable SANJAY, SILVANO RADHA MOUNIR Primary Care Kmei vailable SANJAY, SILVANO RADHA MOUNIR Referring Kemi vailable SANJAY, SILVANO RADHA MOUNIR Primary Care Kemi vailable SANJAY, SILVANO RADHA MOUNIR Admitting Kemi vailable Lengl PA-C, Dell Benjamín Unavailable SANJAY, SILVANO H Primary Care Unavailable CONI LERNER Attending Unavailable SANJAY, SILVANO H Primary Care Unavailable ABBY SRINIVASAN Attending Unavailable Dr. Helga Min MD Primary Care Provider Carisa Montalvo Attending Provider [phone] Carisa Montalvo Referring Provider Dr. Per Fairchild MD Attending Provider Emma MATERIAL HANDLER FLOORPERSON-CKirstie Attending Provider Emma MATERIAL HANDLER FLOORPERSON-CKirstie Referring Provider Assessment, Health Risk Attending Provider Unava ilable Agustina COLLINS, Dr. Prakash Attending Provider Agustina COLLINS, Dr. Prakash Referring Provider Agustina COLLINS, Dr. Prakash Other Provider [phone] Pako COLLINS, Dr. Esparza Primary Care Provider [phone] Pako COLLINS, Dr. Esparza Referring Provider Margaret Crockett Attending Provider Rae Nogueira CNM Attending Provider [phone] Rae Nogueira CNM Referring Provider [phone] Mega Marvin DO, Dr. Segura Attending Provider [...] COLLINS, Dr. Esparza Primary Care Provider [phone] Dr. Per Fairchild MD Attending Provider Pako COLLINS, Dr. Esparza Primary Care Provider [phone] Kirstie Bhakta Attending Provider Devorah COLLINS, Dr. Albarado Attending Provider Brenda Rutherford Attending Provider Brenda Rutherford Referring Provider Pako COLLINS, Dr. Esparza Primary Care Physician [phone] Pako COLLINS, Dr. Esparza Referring Provider Sukhdev DOLL-C, Margaret Attending Physician [phone] Brenda Rutherford Attending Physician Jero MARTIN, Rae Attending Physician [phone] Jero OAKLEYM, Rae Referring Provider [phone] Laron COLLINS, Dr. Quiroz Attending Physician Laron COLLINS, Dr. Quiroz Referring Provider GABRIELLA XIAO Referring Unavailabl e FRED MALIK Attending Unavailable PAKO, HELGA G Primary Care Unavailable Pako, Helga Primary Care Unavailable Rae Nogueira Attending Unavailable Margaret Santizo Attending Unavailable Deposit, Helga Primary Care Unavailable SANJAY, SILVANO Primary Care Unavailable Emma MATERIAL HANDLER FLOORPERSON, Kirstie Attending Unavailable Emma MATERIAL HANDLER FLOORPERSON, Kirstie Referring Unavailable Rae Nogueira Referring Unavailable Rae Nogueira Attending Unavailable Deposit, Helga Primary Care Unavailable Brenda Crawford Attending Unavailable Brenda Crawford Referring Unavailable Deposit, Helga Primary Care Unavailable Margaret Santizo Attending Unavailable Deposit, Helga Primary Care Unavailable Pako, Helga Primary Care Unavailable Emma MATERIAL HANDLER FLOORPERSON, Kirstie Attending Unavailable Aliquippa MATERIAL HANDLER FLOORPERSON, Kirstie Referring Unavailable Jacinda, Derrell Attending Unavailable Deposit, Helga Primary Care Unavailable Pako, Helga Primary Care Unavailable Gabriella Xiao Referring Unavailable Gabriella Xiao Attending Unavailable [place]osit, Helga Primary Care Unavailable Rae Nogueira Attending Unavailable Rae Nogueira Referring Unavailable Deposit, Helga Primary Care Unavailable Rae Nogueira Attending Unavailable Rae Nogueira Referring Unavailable Ana Paula Palmer Attending Unavailable Ana Paula Palmer Referring Unavailable SANJAY, SILVANO Primary Care Unavailable [place]osit, Helga Primary Care Unavailable Imelda Metzger Attending Unavailabl e [place], Helga Primary Care Unavailable Imelda Metzger Attending UnavailImelda Hopkins Referring Unavailabl Margaret Harmon Attending Unavailable Margaret Santizo Referring Unavailable Pako, Helga Primary Care Unavailable Pako, Helga Primary Care Unavailable Vande Velde, Imelda Referring Unavailabl e Vandgm Marvin Imelda Attending Unavailabl e Pako, Helga Primary Care Unavailable Vande Velde, Imelda Attending Unavailabl e [place]osit, Helga Primary Care Unavailable Vande Velde, Imelda Referring Unavailabl e Vande Velde, Imelda Attending Unavailabl e [place], Helga Primary Care Unavailable Kirstie Carter NP Attending Unavailable Rae Nogueira Attending Unavailable [place], Helga Primary Care Unavailable [place], Helga Primary Care Unavailable Carisa Mohan Attending Unavailable Carisa Mohan Referring Unavailable Per Fairchild Attending Unavailable Assessment, Health Risk Attending Unavaila Per Laguna Attending Unavailable Pako, Helga Primary Care Unavailable Per Fairchild Attending Unavailable Pako, Helga Primary Care Unavailable Pako, Helga Primary Care Unavailable Carisa Mohan Attending Unavailable Margaret Santizo Attending Unavailable Pako, Helga Referring Unavailable Pako, Helga Primary Care Unavailable Deposit, Helga Referring Unavailable Ghazoul, Olinda Attending Unavailable [place], Helga Referring Unavailable [place], Helga Primary Care Unavailable VandAshly Levyfer Attending Unavailabl e SANJAY, SILVANO Primary Care Unavailable Pako, Helga Attending Unavailable SANJAY, SILVANO Referring Unavailable Margaret Santizo Attending Unavailable [place], Helga Referring Unavailable Pako, Helga Primary Care Unavailable Pako, Helga Referring Unavailable Pako, Helga Primary Care Unavailable Ghazoul, Olinda Attending Unavailable Ghazoul, Olinda Attending Unavailable SANJAY, SILVANO Primary Care Unavailable EmmaKirstie valentin NP Attending Unavailable SANJAY, SILVANO Referring Unavailable Pako, Helga Referring Unavailable Deposit, Helga Primary Care Unavailable Vande Velde Imelda Attending Unavailabl e [place], Helga Referring Unavailable [place], Helga Primary Care Unavailable Gabriella Xiao Attending Unavailable Brenda Crawford Attending Unavailable Pako, Helga Referring Unavailable Pako, Helga Primary Care Unavailable Deposit, Helga Primary Care Unavailable Ghazoul, Olinda Referring Unavailable Ghazoul, Olinda Consulting Unavailable Ghazoul, Olinda Attending Unavailable [place], Helga Referring Unavailable Pako, Helga Primary Care Unavailable Gabriella Xiao Attending Unavailable SANJAY, SILVANO Primary Care Unavailable Carisa Mohan Attending Unavailable SANJAY, SILVANO Referring Unavailable Per Fairchild Attending Unavailable Pako, Helga Primary Care Unavailable Pako, Helga Primary Care Unavailable Kirstie Carter NP Attending Unavailable SANJAY, SILVANO Referring Unavailable Rae Nogueira Attending Unavailable Deposit, Helga Primary Care Unavailable Deposit, Helga Primary Care Unavailable Ghazoul, Olinda Attending Unavailable Ghazoul, Olinda Referring Unavailable Allergies Allergy Classification Reported Allergen(s) Allergy Type Date of Onset Reaction(s) Facility Amoxicillin / Clavulanate (3 sources) Amoxicillin / Clavulanate; Translations: [Augmentin] Drug Allergy 0 Diarrhea [facility] (7 sources) amoxicillin / clavulanate; Translations: [Augmentin] Drug Allergy Diarrhea [facility] Repository (1 source) No Known Allergies; Translations: [No Known Allergies] Propensity to adverse reactions to drug (disorder) [facility] Repository (19 sources) Amoxicillin / Clavulanate; Translations: [AMOXICILLIN-POT CLAVULANATE] Drug Allergy 0 Diarrhea [facility] (11 sources) Amoxicillin Drug Allergy 5 [facility] (11 sources) Clavulanate Drug Allergy 5 [facility] (1 source) Amoxicillin Drug Allergy 5 [facility] Repository (1 source) Clavulanate Drug Allergy 5 [facility] Repository Medications Current Medications Medication Drug Class(es) Dates Sig (Normalized) Sig (Original) 21 day ethinyl estradiol 0.475155 mg/hr / etonogestrel 0.005 mg/hr vaginal system [...] remove for 1 week. . 3 each 06/17/2019 07/24/2021 Discontinued Levonorgestrel-Ethinyl Estra d (20 sources) Progestin, Estrogen, Progestin-containing Intrauterine Device Start: 12-01-2024 Start: 12-01-2024 Levonorgestrel -Ethinyl Estrad (Altavera (28)) 0.15-0.03 mg tablet Active 1 {tbl} PO DAILY 84 December 01, 2024 8:38am Start: 12-01-2024 Levonorgestrel -Ethinyl Estrad (Altavera (28)) 0.15-0.03 mg tablet Active 1 {tbl} PO DAILY December 01, 2024 8:38am Start: 11-23-2024 End: [...] tablet Active 1 {tbl} PO DAILY 84 November 23, 2024 9:27am Start: 08-02-2024 End: 11-23-2024 Levonorgestrel-Ethinyl Estra d (Altavera (28)) 0.15-0.03 mg tablet Discontinued 1 {tbl} PO DAILY 84 0 August 02, 2024 2:40pm November 23, 2024 9:27am Start: 08-02-2024 End: 11-23-2024 Levonorgestrel-Ethinyl Estra d (Altavera (28)) 0.15-0.03 mg tablet Discontinued 1 {tbl} PO DAILY 84 August 02, 2024 2:40pm November 23, 2024 9:27am Start: 08-02-2024 Levonorgestrel -Ethinyl Estrad (Altavera (28)) 0.15-0.03 mg tablet Active 1 {tbl} PO DAILY 84 August 02, 2024 2:40pm Start: 05-12-2024 End: [...] mcg (24)/10 mcg (2) Tab Norgestimate-Ethinyl Estradiol (15 sources) Progestin, Estrogen Start: 05-12-2024 End: 05-12-2024 Norgestimate-Ethinyl Estradiol (Tri-Lo-Daphne) 0.18/0.215/0.25 mg-25 mcg tablet Discontinued 1 {tbl} PO daily May 12, 2024 12:00am May 12, 2024 2:34pm Start: 02-09-2024 take 1 tablet by shade th once daily norgestimate-ethinyl estradioL (Qbn-Yw-Gjotuzxa) 0.18/0.215/0.25 mg-25 mcg per tablet Take 1 (one) tablet by mouth daily . 30 tablet 11 02/09/2024 Active Start: 12-09-2023 End: 02-07-2024 take 1 tablet by mouth once daily norgestimate-ethinyl estradioL (Nrk-Gh-Sxdtozve) 0.18/0.215/0.25 mg-25 mcg per tablet Take 1 (one) tablet by mouth daily . 30 tablet 1 12/09/2023 02/07/2024 Discontinued (Reorder (Suppress CancelRx Message to Pharmacy)) Start: 12-09-2023 take 1 tablet by shade th once daily norgestimate-ethinyl estradioL (Wxu-Zn-Yhdodjno) 0.18/0.215/0.25 mg-25 mcg per tablet Take 1 (one) tablet by mouth daily . 30 tablet 1 12/09/2023 Active Start: 11-13-2023 End: 12-06-2023 take 1 tablet by mouth once daily norgestimate-ethinyl estradioL (Qnj-Cv-Nelbtrmr) 0.18/0.215/0.25 mg-25 mcg per tablet Take 1 (one) tablet by mouth daily . 30 tablet 1 11/13/2023 12/06/2023 Discontinued (Reorder (Suppress CancelRx Message to Pharmacy)) fluconazole 150 mg oral tablet (11 sources) Azole Antifungal Start: 04-02-2024 End: 05-12-2024 [...] . 30 g 0 10/29/2022 05/02/2023 Discontinued lactobacillus acidophilus [id number] unt oral capsule (1 source) Start: 03-22-2024 End: 03-29-2024 Lactobacillus Acidophilus 10 billion cell capsule Discontinued 69713 NMA PO TWICE A DAY 14 7 0 March 22, 2024 12:00am March 28, 2024 12:00am March 29, 2024 12:04am Lactobacillus Acidophilus 10 billion cell capsule (10 sources) Start: 03-22-2024 End: 03-29-2024 Lactobacillus Acidophilus 10 billion cell capsule Discontinued 09120 NMA PO TWICE A DAY 14 7 0 March 22, 2024 12:00am March 28, 2024 12:00am March 29, 2024 12:04am Start: 03-22-2024 End: 03-29-2024 Lactobacillus Acidophilus 10 billion cell capsule Discontinued 09194 NMA PO TWICE A DAY 14 7 March 22, 2024 12:00am March 28, 2024 12:00am March 29, 2024 12:04am levonorgestrel 0.782359 mg/hr intrauterine system (8 sources) Progestin, Progestin-containing Intrauterine Device Liletta (52 MG) 19.5 MCG/DAY IUD Quantity: 0 Refills: 0 Ordered: 15-Dec-2020 DO Active levonorgestreL ( LILETTA) 20.1 mcg/24 hrs (6 yrs) 52 mg IUD IUD 1 each by Intrauterine route once . 0 Active metoclopramide 5 mg oral tablet (11 sources) Dopamine-2 Receptor Antagonist Start: 05-22-2024 End: 06-05-2024 take 1 tablet by mouth 30 minutes before mealtime Metoclopramide Hcl 5 mg tablet Discontinued 5 mg PO before meals 42 14 0 May 22, 2024 1:00am June 04, 2024 1:00am June 05, 2024 1:16am administer 30 minutes before meals metroNIDAZOLE 0.01 mg/mg topical gel (11 sources) Nitroimidazole Antimicrobial Start: 05-24-2024 End: 10-15-2024 [...] hours PRN nausea Quantity: 20 Refills: 3 Carole Mancuso DO Start : 29-Mar-2020 Active pantoprazole 20 mg delayed release oral tablet (11 sources) Proton Pump Inhibitor Start: 03-22-2024 End: [...] DO Active rifAXIMin 550 mg oral tablet (11 sources) Rifamycin Antibacterial Start: 03-22-2024 End: 05-12-2024 take 1 tablet by mouth three times daily Rifaximin 550 mg tablet Discontinued 550 mg PO THREE TIMES A DAY 42 14 2 March 22, 2024 12:00am May 12, 2024 2:22pm IBS-D sulfamethoxazole 400 mg / trimethoprim 80 mg oral tablet (11 sources) Dihydrofolate Reductase Inhibitor Antibacterial, Sulfonamide Antimicrobial [...] 06-17-2023 Episodic Comment on above: 11/28/2020; LILETTA; Menstrual disorders (2 sources) Amenorrhea; Translations: [Amenorrhea, unspecified] Onset: 05-07-2025 04-01-2025 Chronic Comment on above: HCG x2 Other and unspecified benign neoplasm (19 sources) Benign neoplasm of skin of scalp; Translations: [Other benign neoplasm of skin of scalp and neck] 10-26-2024 Episodic Other complications of (3 sources) Placental abnormality; Translations: [Abnormal placental ultrasound] Episodic Other complications of (3 sources) Nausea and vomiting; Translations: [Unspecified vomiting of , unspecified as to episode of care or not applicable] Episodic Other complications of (1 source) Spotting complicating , unspecified trimester; Translations: [Spotting complicating , unspecified trimester] Onset: 04-25-2025 Episodic Other female genital disorders (12 sources) Pain in female genitalia on intercourse; Translations: [Unspecified dyspareunia] Onset: 09-18-2023 09-18-2023 Chronic Other female genital disorders (11 sources) Abnormal uterine bleeding; Translations: [Abnormal uterine and vaginal bleeding, unspecified] 08-30-2024 Chronic Other female genital disorders (1 source) Abnormal uterine and vaginal bleeding, unspecified; Translations: [Abnormal uterine and vaginal bleeding, unspecified] Onset: 09-16-2024 Chronic Other gastrointestinal disorders (11 sources) Irritable bowel syndrome; Translations: [Irritable bowel syndrome without diarrhea] 05-24-2024 Chronic Other gastrointestinal disorders (1 source) Irritable bowel syndrome without diarrhea; Translations: [Irritable bowel syndrome, unspecified] Onset: 06-08-2024 Chronic Other gastrointestinal disorders (8 sources) Chronic constipation; Translations: [Constipation, unspecified] Episodic Other gastrointestinal disorders (11 sources) Small bowel bacterial overgrowth syndrome; Translations: [Small intestinal bacterial overgrowth (SIBO)] 03-22-2024 Episodic Other non-traumatic joint disorders (3 sources) Pain in wrist; Translations: [Pain in joint, forearm] Episodic Other and delivery including normal (20 sources) Delivery normal; Translations: [ care status] Onset: 05-06-2025 11-23-2024 Episodic Comment on above: 10/03/2020-39 weeks, vaginal, male, #7 15oz 01/10/2018_40weeks_Female_7# 4oz; Other skin disorders (1 source) Skin tag; Translations: [Skin tag] Episodic Other skin disorders (14 sources) Trachyonychia; Translations: [Nail dystrophy] 12-01-2024 Episodic Other skin disorders (14 sources) Loss of hair; Translations: [Nonscarring hair loss, unspecified] 12-01-2024 Episodic Other skin disorders (10 sources) Epidermoid cyst; Translations: [Epidermal cyst] 12-15-2024 Episodic Other upper respiratory infections (13 sources) Acute sinusitis, unspecified; Translations: [Acute upper respiratory infection] Onset: 02-18-2024 Episodic Residual codes; unclassified (1 source) Gestation period, 20 weeks; Translations: [20 weeks gestation of ] Episodic Residual codes; unclassified (1 source) Gestation period, 27 weeks; Translations: [ with 27 completed weeks gestation] Episodic Residual codes; unclassified (2 sources) H/O: miscarriage; Translations: [Personal history of other complications of , childbirth and the puerperium] 02-03-2025 Episodic Residual codes; unclassified (1 source) Personal history of other complications of , childbirth and the puerperium; Translations: [Personal history of other complications of , childbirth and the puerperium] Onset: 02-08-2025 Episodic Thyroid disorders (15 sources) Goiter; Translations: [Nontoxic goiter, unspecified] Onset: [...] initial encounter] Onset: 07-24-2021 Episodic Gastrointestinal hemorrhage (12 sources) Rectal hemorrhage; Translations: [Hemorrhage of anus [...] Onset: 06-17-2019 06-17-2019 Episodic Malaise and fatigue (15 sources) Fatigue; Translations: [Other fatigue] Onset: 12-01-2024 [...] 12 weeks; Translations: [ state, incidental] Episodic Spondylosis; intervertebral disc disorders; other back problems (1 source) Dorsalgia, unspecified; Translations: [Dorsalgia, unspecified] Onset: 01-31-2025 Episodic Spontaneous (11 sources) Miscarriage; Translations: [Complete or unspecified spontaneous [...] Test Name Value Interpretation Reference Range Facility Transvaginal w/Preg USon Transvaginal w/Preg US [facility] [address] [place], [place] [address] Transvaginal w/Preg US MR#: [id number] Acct: [id number] Name: STEFANIA NICOLE Rep #: [id number] : 1990 F 34 From: Ar[facility]io Novoa PCP: Dr. Helga Min MD Status: REG CLI Study: Transvaginal w/Preg US Date of Exam: 04/25/25 Exam# [id number] Ordering Dr: Imelda Metzger DO PROCEDURE: TRANSVAGINAL W/PREG US 04/25/2025 REASON FOR EXAM: RULE OUT MOLAR TECHNIQUE: Procedure Code: [id number] Modality: US Procedure: TRANSVAGINAL W/PREG US COMPARISON: None FINDINGS Uterus measures 13.1 x 8.2 x 6.2 cm. No uterine fibroid noted. Cervix is closed. Gestational sac with diameter of 2.9 cm and yolk sac of 3 mm. CRL measures 10 mm. Overall sonographic gestational age of 7 weeks and 4 day with MEE of 12/08/2025. heart rate of 129 beats per minute. Anechoic/hypoechoic structure adjacent to the gestational sac measuring 0.9 x 1 x 0.3 cm and 1.3 x 0.4 x 0.6 cm. Right ovary measures 4.3 x 2.1 x 1.8 cm and left ovary measures 3.5 x 2.6 x 2.4 cm. Normal vascular flow is noted within bilateral ovaries. Minimal free fluid noted within the cul-de-sac. US/Transvaginal w/Preg US IMPRESSION: Sonographic gestational age of 7 weeks and 4 day with MEE of 12/08/2025. Nonspecific anechoic/hypoechoic structure adjacent to the gestational sac measuring 0.9 x 1 x 0.3 cm and 1.3 x 0.4 x 0.6 cm. Consider close follow-up ultrasound and monitoring beta hCG and office bookkeeper consultation for further evaluation. Reading Location: [id number] CC: Dr. Helga Min MD; Dr. Imelda Metzger DO Marketing Developer: Signed Normal [facility] hCG Titer Quant., Serumon HCG QUANT. [id number] mIU/mL High <9 non-preg [facility] Comment on above: Order Comment: rpt 4 8H, LMP 03/08 Result Comment: Gest ational Age 0.2-1 Week: 5-50 mIU/mL 1-2 Weeks: 50-500 mIU/mL 2-3 Weeks: 100-5000 mIU/mL 3-4 Weeks: 500-10,000 mIU/mL 4-5 Weeks:1000-50,000 mIU/mL 5-6 Weeks: 10,000-100,000 mIU/mL 6-8 Weeks: 15,000-200,000 mIU/mL 2-3 Months:10,000-100,000 mIU/mL Performed By: #### L 700.8000 #### [facility] Laboratory [address] [facility], [address] hCG Titer Quant., Serumon HCG QUANT. [id number] mIU/mL High <9 non-[facility] Comment on above: Order Comment: LMP Result Comment: Gest ational Age 0.2-1 Week: 5-50 mIU/mL 1-2 Weeks: 50-500 mIU/mL 2-3 Weeks: 100-5000 mIU/mL 3-4 Weeks: 500-10,000 mIU/mL 4-5 Weeks:1000-50,000 mIU/mL 5-6 Weeks: 10,000-100,000 mIU/mL 6-8 Weeks: 15,000-200,000 mIU/mL 2-3 Months:10,000-100,000 mIU/mL Performed By: #### L 700.8000 #### [facility] Laboratory [address] [place], [address] Serum human chorionic gonado tropin detection for pregnancyOrdered By: Gabriella Xiao on 04-12-2025 HCG ( test) Ql 9296 mIU/mL High <9 [facility] Comment on above: Gestational Age0.2-1 Week: 5-50 mIU/mL1-2 Weeks: 50-500 mIU/mL2-3 Weeks: 100-5000 mIU/mL3-4 Weeks: 500-10,000 mIU/mL4-5 Weeks:1000-50,000 mIU/mL5-6 Weeks: 10,000-100,000 mIU/mL6-8 Weeks: 15,000-200,000 mIU/mL2-3 Months:10,000-100,000 mIU/mL hCG Titer Quant., Serumon HCG QUANT. 9296 mIU/mL High <9 non-preg [facility] Comment on above: Result Comment: Gest ational Age 0.2-1 Week: 5-50 mIU/mL 1-2 Weeks: 50-500 mIU/mL 2-3 Weeks: 100-5000 mIU/mL 3-4 Weeks: 500-10,000 mIU/mL 4-5 Weeks:1000-50,000 mIU/mL 5-6 Weeks: 10,000-100,000 mIU/mL 6-8 Weeks: 15,000-200,000 mIU/mL 2-3 Months:10,000-100,000 mIU/mL Performed By: #### L 700.8000 #### [facility] Laboratory [address] [place], [place], [id number] Serum human chorionic gonado tropin detection for pregnancyOrdered By: Rae Nogueira on 04-05-2025 HCG ( test) Ql 266 mIU/mL High <9 [facility] Comment on above: Gestational Age0.2-1 Week: 5-50 mIU/mL1-2 Weeks: 50-500 mIU/mL2-3 Weeks: 100-5000 mIU/mL3-4 Weeks: 500-10,000 mIU/mL4-5 Weeks:1000-50,000 mIU/mL5-6 Weeks: 10,000-100,000 mIU/mL6-8 Weeks: 15,000-200,000 mIU/mL2-3 Months:10,000-100,000 mIU/mL hCG Titer Quant., Serumon HCG QUANT. 266 mIU/mL High <9 [facility] Comment on above: Result Comment: Gest ational Age 0.2-1 Week: 5-50 mIU/mL 1-2 Weeks: 50-500 mIU/mL 2-3 Weeks: 100-5000 mIU/mL 3-4 Weeks: 500-10,000 mIU/mL 4-5 Weeks:1000-50,000 mIU/mL 5-6 Weeks: 10,000-100,000 mIU/mL 6-8 Weeks: 15,000-200,000 mIU/mL 2-3 Months:10,000-100,000 mIU/mL Performed By: #### L 700.8000 #### [facility] Laboratory [address] [place], [address] Serum human chorionic gonado tropin detection for pregnancyOrdered By: Rae Nogueira on 04-03-2025 HCG ( test) Ql 86 mIU/mL High <9 [facility] Comment on above: Gestational Age0.2-1 Week: 5-50 mIU/mL1-2 Weeks: 50-500 mIU/mL2-3 Weeks: 100-5000 mIU/mL3-4 Weeks: 500-10,000 mIU/mL4-5 Weeks:1000-50,000 mIU/mL5-6 Weeks: 10,000-100,000 mIU/mL6-8 Weeks: 15,000-200,000 mIU/mL2-3 Months:10,000-100,000 mIU/mL [facility]/mL High <9 [facility] Comment on above: Result Comment: Gest ational Age 0.2-1 Week: 5-50 mIU/mL 1-2 Weeks: 50-500 mIU/mL 2-3 Weeks: 100-5000 mIU/mL 3-4 Weeks: 500-10,000 mIU/mL 4-5 Weeks:1000-50,000 mIU/mL 5-6 Weeks: 10,000-100,000 mIU/mL 6-8 Weeks: 15,000-200,000 mIU/mL 2-3 Months:10,000-100,000 mIU/mL Performed By: #### L 700.8000 #### [facility] Laboratory [address] [place], [place], [id number] Serum human chorionic gonado tropin detection for pregnancyOrdered By: Rae Nogueira on 04-01-2025 HCG ( test) Ql 27 mIU/mL High <9 [facility] Comment on above: Gestational Age0.2-1 Week: 5-50 mIU/mL1-2 Weeks: 50-500 mIU/mL2-3 Weeks: 100-5000 mIU/mL3-4 Weeks: 500-10,000 mIU/mL4-5 Weeks:1000-50,000 mIU/mL5-6 Weeks: 10,000-100,000 mIU/mL6-8 Weeks: 15,000-200,000 mIU/mL2-3 Months:10,000-100,000 mIU/mL hCG Titer Quant., Serumon HCG QUANT. 27 mIU/mL High <9 non-preg [facility] Comment on above: Result Comment: Gest ational Age 0.2-1 Week: 5-50 mIU/mL 1-2 Weeks: 50-500 mIU/mL 2-3 Weeks: 100-5000 mIU/mL 3-4 Weeks: 500-10,000 mIU/mL 4-5 Weeks:1000-50,000 mIU/mL 5-6 Weeks: 10,000-100,000 mIU/mL 6-8 Weeks: 15,000-200,000 mIU/mL 2-3 Months:10,000-100,000 mIU/mL Performed By: #### L 700.8000 #### [facility] Laboratory [address] [place], [place], [id number] Serum human chorionic gonado tropin detection for pregnancyOrdered By: Margaret Santizo on 02-03-2025 HCG ( test) Ql < 1 mIU/mL <9 [facility] Comment on above: Gestational Age0.2-1 Week: 5-50 mIU/mL1-2 Weeks: 50-500 mIU/mL2-3 Weeks: 100-5000 mIU/mL3-4 Weeks: 500-10,000 mIU/mL4-5 Weeks:1000-50,000 mIU/mL5-6 Weeks: 10,000-100,000 mIU/mL6-8 Weeks: 15,000-200,000 mIU/mL2-3 Months:10,000-100,000 mIU/mL hCG Titer Quant., Serumon HCG QUANT. < 1 Normal <9 non-preg [facility] Comment on above: Result Comment: Gest ational Age 0.2-1 Week: 5-50 mIU/mL 1-2 Weeks: 50-500 mIU/mL 2-3 Weeks: 100-5000 mIU/mL 3-4 Weeks: 500-10,000 mIU/mL 4-5 Weeks:1000-50,000 mIU/mL 5-6 Weeks: 10,000-100,000 mIU/mL 6-8 Weeks: 15,000-200,000 mIU/mL 2-3 Months:10,000-100,000 mIU/mL Performed By: #### L 700.8000 #### [facility] Laboratory [address] [facility], [address] L/S Spine Min 4 Viewson 01-11 L/S Spine Min 4 Views [facility] [address] [place] [address] L/S Spine Min 4 Views MR#: [id number] Acct: [id number] Name: STEFANIA NICOLE Rep #: [id number] : 1990 F 34 From: Daniel Cordova MD PCP: Dr. Helga Min MD Status: REG CLI Study: L/S Spine Min 4 Views Date of Exam: 01/26/25 Exam# [id number] Ordering Dr: Brenda Crawford PA EXAM: XR Cervical Spine Flexion/Extension Only, 2 [...] significant dynamic instability. Reading Location: [facility] CC: SARAH Smith; Dr. Helga Min MD Marketing Developer: Signed Normal [facility] PAP IG HPV APTIMA 16/18,45on 01-10-2025 ORDER Normal [facility] Comment on above: Order Comment: RESUL TS FAXED TO [facility] 12/15/24 Edmond1 Ro Dobbs.LEA AT OFFICE NOTIFIED THAT FAX [...] image guided system. Performed by Opal Haywood, Senior Fire Protection Engineer (ASCP) Electronically signed by Charlene Kunz MD, Pathologist This nucleic acid amplification test detects fourteen high-risk HPV types (16,18,31,33,35,39,45,51,52,56,58,59,66,68) without differentiation. HPV RESULTS: HPV Aptima: Positive HPV Genotype Reflex Criteria not met, HPV Genotype not performed. TESTING PERFORMED AT [facility]. ORIGINAL REPORT ON FILE IN LAB CONTAINS ADDITIONAL TEST SITE INFORMATION. Performed By: #### L 700.8000 #### [facility] Laboratory [address] [place], [place], [address] HSV Culture Screenon 025 HSV CULTURE Negative Normal [facility] Comment on above: Performed By: #### L 700.8000 #### [facility] Laboratory [address] [place], [place], [address] Herpes simplex virus (HSV) c ultureOrdered By: Margaret Santizo on 12-15-2024 HSV identified Org specific cx Nom (Unsp spec) Negative [facility] Bi Specialist Office Visit Reporton 12-15-2024 Bi Specialist Office Visit Report [facility] [address], [address] [place] [address] OFFICE VISIT Date of Service: 12/15/24 MR#: [id number] Acct: [id number] Name: STEFANIA NICOLE Rep #: [id number] : 1990 Provider: NEELAM Harrison Age/Sex: 34/F Location: [facility] Status: Signed Intake Vital Signs 12/01/24 08:28 12/15/24 14:00 12/15/24 14:04 Height 5 ft 2 in 5 ft 2 in 5 ft 2 in Weight: 145 lb BMI 26.5 BP 127/85 H Intake Visit Reasons: genital lesion Data Administrator Required: No Is patient in pain?: No [...] : No Control Method: ocp- altavera [facility] Medical History GERD (gastroesophageal reflux disease) Frequent [...] Social History (Updated 12/15/24 @ 14:10 by Kathysa Javier) adopted: No household members: significant other number of children: 2 current occupational status: employed 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 Normal [facility] Syphilis Antibodieson 2024 Syphilis Abs Non-Reactive Normal Nonreactive [facility] Comment on above: Performed By: #### L 509.8002 #### [facility] Laboratory [address] [place], [address] Influenza virus A and B and SARS-CoV-2 (COVID-19) and Respiratory syncytial virus RNAOrdered By: Per Fairchild on 12-10-2024 SARS-CoV-2 (COVID-19) RNA JIM+probe Ql (Unsp spec) [facility] M100.678on 12-10-2024 M100.678 Pending SARS-CoV-2 (COVID 19) Negative INFLUENZA A Negative INFLUENZA B Negative RSV PCR Negative Normal [facility] Comment on above: Performed By: #### L 700.8000 #### [facility] Laboratory [address] [place], [place], [id number] Thyroidon 12-08-2024 Thyroid [facility] [address] [place], [place] [address] Thyroid MR#: [id number] Acct: [id number] Name: STEFANIA NICOLE Rep #: [id number] : 1990 F 34 From: Daniel Gilbert MD PCP: Dr. Helga Min MD Status: REG CLI Study: Thyroid Date of Exam: 12/08/24 Exam# [id number] Ordering Dr: Imelda Metzger DO PROCEDURE: THYROID, [...] Paper of the ACR TI-RADS Committee, 2017 ([email or web address]) Reading Location: [facility] CC: Dr. Helga Min MD; Dr. Imelda Metzger DO Marketing Developer: Signed Normal [facility] Chlamydia/GC JIM aptimaon CHLAMY,NUC ACID Negative Normal Negative [facility] Comment on above: Performed By: #### L 700.8000 #### [facility] Laboratory [address] [place], [place], [address] GC BY NUC ACID Negative Normal Negative [facility] Comment on above: Result Comment: Perf ormed at: =G - [facility] [address] [id number] Media Marketing Manager: Sonia Simpson MD, Phone: [phone] Performed By: #### L 700.8000 #### [facility] Laboratory [address] [place], [place], [address] Calculated very low density lipoprotein (VLDL) cholesterol measurementOrdered By: Imelda Marvin on 12-01-2024 Calculated very low density lipoprotein (VLDL) cholesterol measurement 14 mg/dL 5-40 [facility] Cervical or vaginal specimen microscopic examination by liquid based cytology (reportOrdered By: Imelda Marvin on 12-01-2024 Cytology report Cyto stain.thin prep Doc (Cvx/Vag) Not Reportable [facility] Chlamydia trachomatis rRNA d etection by probe and target amplification methodOrdered By: Imelda Marvin on 12-01-2024 C. trachomatis rRNA JIM+probe Ql (Unsp spec) Negative Negative [facility] Glucoseon 12-01-2024 Glucose [Mass/Vol] 88 mg/dL Normal 70-99 [facility] Comment on above: Performed By: #### L 506.1001, L501.0100, L500.4100, L501.9520, L503.0106, L506.0400 #### [facility] Laboratory [address] [place], [place], [address] LDL calc ser/plasOrdered By: Imelda Marvin on 12-01-2024 Cholesterol in LDL [Mass/Vol] 95 mg/dL [facility] Comment on above: Mnwzmijete=338-219 m g/dL & Higher Hjnj=736 mg/dL or greater Lipid Profileon 12-01-2024 CHOL:HDL 2.85 Normal [facility] Comment on above: Performed By: #### L 506.1001, L501.0100, L500.4100, L501.9520, L503.0106, L506.0400 #### [facility] Laboratory [address] [place], [address] Cholesterol [Mass/Vol] 168 mg/dL Normal <=200 [facility] Comment on above: Result Comment: Chol esterol level, Desirable <200 mg/dL Borderline high cholesterol 200-239 mg/dL High cholesterol >=240 mg/dL Recommendations of the NCEP Adult Treatment Panel for the following risk-cutoff thresholds for the [place] population. Performed By: #### L 506.1001, L501.0100, L500.4100, L501.9520, L503.0106, L506.0400 #### [facility] Laboratory [address] [place], [address] Cholesterol in HDL [Mass/Vol] 59 mg/dL Normal [facility] Comment on above: Result Comment: Treva onal Cholesterol Education Program (NCEP) guidelines: <40 mg/dL: Low HDL-cholesterol (major risk factor for CHD) >= 60 mg/dL: High HDL-cholesterol (negative risk factor for CHD) HDL-cholesterol is affected by a number of factors, e.g. smoking, exercise, hormones, sex and age. Performed By: #### L 506.1001, L501.0100, L500.4100, L501.9520, L503.0106, L506.0400 #### [facility] Laboratory [address] [place], [address] Cholesterol in LDL [Mass/Vol] 95 mg/dL Normal [facility] Comment on above: Result Comment: Bord eaijel=502-741 mg/dL Higher Nzqr=658 mg/dL or greater Performed By: #### L 506.1001, L501.0100, L500.4100, L501.9520, L503.0106, L506.0400 #### [facility] Laboratory [address] [place], [address] Cholesterol in VLDL [Mass/Vol] 14 mg/dL Normal 5-40 [facility] Comment on above: Performed By: #### L 506.1001, L501.0100, L500.4100, L501.9520, L503.0106, L506.0400 #### [facility] Laboratory [address] [place], [place], [address] Triglyceride [Mass/Vol] 69 mg/dL Normal [facility] Comment on above: Result Comment: The drugs N-Acetylcysteine and Metamizole may falsely depress this assay. Normal range: <150 mg/dL Borderline High: 150-199 mg/dL High: 200-499 mg/dL Very High: >500 mg/dL Performed By: #### L 506.1001, L501.0100, L500.4100, L501.9520, L503.0106, L506.0400 #### [facility] Laboratory [address] [place], [place], [address] Neisseria gonorrhoeae nuclei c acid detection by amplified probe techniqueOrdered By: Imelda Marvin on 12-01-2024 N. gonorrhoeae DNA JIM+probe Ql (Unsp spec) Negative Negative [facility] Comment on above: Performed at: [address] [id number] Director: Sonia Simpson MD, Phone: [phone] No Panel InformationOrdered By: Imelda Marvin on 12-01-2024 Pap Smear Test Ordered See comment [facility] Comment on above: IGP, Aptima HPV, rfx [...] image guided system. Performed by Opal Haywood, Senior Fire Protection Engineer (ASCP) Electronically signed by Charlene Kunz MD, Pathologist This nucleic acid amplification test detects fourteen high-risk HPV types (16,18,31,33,35,39,45,51,52,56,58,59,66,68) without differentiation.HPV RESULTS: HPV Aptima: Positive HPV Genotype Reflex Criteria not met, HPV Genotype not performed. ____ TESTING PERFORMED AT [facility]. ORIGINAL REPORT ON FILE IN LAB CONTAINS ADDITIONAL TEST SITE INFORMATION. Bi Specialist Office Visit Reporton 12-01-2024 Bi Specialist Office Visit Report [facility]'s [address], [address] [place] [address] OFFICE VISIT Date of Service: 12/01/24 MR#: [id number] Acct: [id number] Name: STEFANIA NICOLE Rep #: [id number] : 1990 Provider: Dr. 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 Administrator Required: No Is patient in pain?: No Allergies amoxicillin (From Augmentin) Allergy (Mild, Verified 12/01/24 08:28) Diarrhea clavulanic acid (From Augmentin) Allergy (Mild, Verified 05/21/25 08:28) Diarrhea Medications ???Medication ???Instructions ???Recorded ???Confirmed ???Type sumatriptan succinate 25 mg tablet See Rx Instructions PO .COMPLEX 11/24/24 12/01/24 Rx (Imitrex) #14 tabs levonorgestrel 0.15 mg-ethinyl 1 tab PO DAILY #84 tabs 12/01/24 0 12/01/24 Rx estradiol 0.03 mg tablet (Altavera (28)) Post menopausal: No Patient : No : No [facility] Medical History GERD (gastroesophageal reflux disease) Frequent [...] spouse current occupational status: employed 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 Normal [facility] Screening total cholesterol/ high density lipoprotein (HDL) cholesterol ratioOrdered By: Imelda Marvin on 12-01-2024 Cholesterol.total/Chol esterol in HDL [Mass ratio] 2.85 {ratio} [facility] Serum glucose measurement (m ass/volume)Ordered By: Imelda Marvin on 12-01-2024 Glucose [Mass/Vol] 88 mg/dL 70-99 [facility] Serum or plasma cholesterol in HDL measurement (mass/volume)Ordered By: Imelda Marvin on 12-01-2024 Cholesterol in HDL [Mass/Vol] 59 mg/dL >40 [facility] Comment on above: National Cholesterol Education Program (NCEP) guidelines:<40 mg/dL: Low HDL-cholesterol (major risk factor for CHD)>= 60 mg/dL: High HDL-cholesterol (negative risk factor for CHD)HDL-cholesterol is affected by a number of factors, e.g. smoking, exercise, hormones, sex and age. Serum or plasma cholesterol measurement (mass/volume)Ordered By: Imelda Marvin on 12-01-2024 Cholesterol [Mass/Vol] 168 mg/dL <201 [facility] Comment on above: Cholesterol level, D esirable <200 mg/dLBorderline high cholesterol 200-239 mg/dLHigh cholesterol >=240 mg/dLRecommendations of the NCEP Adult Treatment Panel for the following risk-cutoff thresholds for the [place] population. T4 Free Directon 12-01-2024 T4 FREE DIRECT 1.30 ng/dL Normal 0.76-1.46 [facility] Comment on above: Performed By: #### L 506.1001, L501.0100, L500.4100, L501.9520, L503.0106, L506.0400 ####[facility] [id number] [place], [place], [address] T4 freeOrdered By: Imelda Marvin on 12-01-2024 Free T4 [Mass/Vol] 1.30 ng/dL 0.76-1.46 [facility] TSH DL <= 0.005 mIU/L QnOrde red By: Imelda Marvin on 12-01-2024 TSH Qn 1.480 uIU/mL 0.300-4.200 [facility] Thyroid Stim Hormone (TSH)on 12-01-2024 TSH 1.480 uIU/mL Normal 0.300-4.200 [facility] Comment on above: Performed By: #### L 506.1001, L501.0100, L500.4100, L501.9520, L503.0106, L506.0400 #### [facility] Laboratory [address] [place], [place], [address] Triglycerides measurementOrd ered By: Imelda Marvin on 12-01-2024 Triglyceride [Mass/Vol] 69 mg/dL <199 [facility] Comment on above: The drugs N-Acetylcy steine and Metamizole may falsely depress this assay. Normal range: <150 mg/dLBorderline High: 150-199 mg/dLHigh: 200-499 mg/dLVery High: >500 mg/dL Vitamin B12on 12-01-2024 Cobalamin (Vitamin B12) [Mass/Vol] 419 pg/mL Normal 180-914 [facility] Comment on above: Performed By: #### L 506.1001, L501.0100, L500.4100, L501.9520, L503.0106, L506.0400 #### [facility] Laboratory [address] [place], [address] Vitamin B12 ser/plasOrdered By: Imelda Marvin on 12-01-2024 Cobalamin (Vitamin B12) [Mass/Vol] 419 pg/mL 180-914 [facility] Vitamin D,25 Hydroxyon 12-01 Vitamin D 25-OH 19.4 ng/mL Low 30-100 [facility] Comment on above: Result Comment: Tahmina min D Status Deficiency: <20 ng/mL (50nmol/L) Insufficiency: 20-30 ng/mL (50-75 nmol/L) Sufficiency: 30-100 ng/mL (75-250 nmol/L) Toxicity: >100 ng/mL (>250 nmol/L) Performed By: #### L 506.1001, L501.0100, L500.4100, L501.9520, L503.0106, L506.0400 ####[facility] [address] [place], [address] Serum human chorionic gonado tropin detection for pregnancyOrdered By: Rae Nogueira on 11-22-2024 HCG ( test) Ql 5 mIU/mL <9 [facility] Comment on above: Gestational Age0.2-1 Week: 5-50 mIU/mL1-2 Weeks: 50-500 mIU/mL2-3 Weeks: 100-5000 mIU/mL3-4 Weeks: 500-10,000 mIU/mL4-5 Weeks:1000-50,000 mIU/mL5-6 Weeks: 10,000-100,000 mIU/mL6-8 Weeks: 15,000-200,000 mIU/mL2-3 Months:10,000-100,000 mIU/mL hCG Titer Quant., Serumon HCG QUANT. 5 mIU/mL Normal <9 non-preg [facility] Comment on above: Result Comment: Gest ational Age 0.2-1 Week: 5-50 mIU/mL 1-2 Weeks: 50-500 mIU/mL 2-3 Weeks: 100-5000 mIU/mL 3-4 Weeks: 500-10,000 mIU/mL 4-5 Weeks:1000-50,000 mIU/mL 5-6 Weeks: 10,000-100,000 mIU/mL 6-8 Weeks: 15,000-200,000 mIU/mL 2-3 Months:10,000-100,000 mIU/mL Performed By: #### L 700.8000 #### [facility] Laboratory [facility] [place], [address] Serum human chorionic gonado tropin detection for pregnancyOrdered By: Rae Nogueira on 11-18-2024 HCG ( test) Ql 19 mIU/mL High <9 [facility] Comment on above: Gestational Age0.2-1 Week: 5-50 mIU/mL1-2 Weeks: 50-500 mIU/mL2-3 Weeks: 100-5000 mIU/mL3-4 Weeks: 500-10,000 mIU/mL4-5 Weeks:1000-50,000 mIU/mL5-6 Weeks: 10,000-100,000 mIU/mL6-8 Weeks: 15,000-200,000 mIU/mL2-3 Months:10,000-100,000 mIU/mL hCG Titer Quant., Serumon HCG QUANT. 19 mIU/mL High <9 non-preg [facility] Comment on above: Result Comment: Gest ational Age 0.2-1 Week: 5-50 mIU/mL 1-2 Weeks: 50-500 mIU/mL 2-3 Weeks: 100-5000 mIU/mL 3-4 Weeks: 500-10,000 mIU/mL 4-5 Weeks:1000-50,000 mIU/mL 5-6 Weeks: 10,000-100,000 mIU/mL 6-8 Weeks: 15,000-200,000 mIU/mL 2-3 Months:10,000-100,000 mIU/mL Performed By: #### L 700.8000 ####[facility] [address] [place], [place], [id number] Serum human chorionic gonado tropin detection for pregnancyOrdered By: Rae Nogueira on 11-11-2024 HCG ( test) Ql 395 mIU/mL High <9 [facility] Comment on above: Gestational Age0.2-1 Week: 5-50 mIU/mL1-2 Weeks: 50-500 mIU/mL2-3 Weeks: 100-5000 mIU/mL3-4 Weeks: 500-10,000 mIU/mL4-5 Weeks:1000-50,000 mIU/mL5-6 Weeks: 10,000-100,000 mIU/mL6-8 Weeks: 15,000-200,000 mIU/mL2-3 Months:10,000-100,000 mIU/mL hCG Titer Quant., Serumon HCG QUANT. 395 mIU/mL High <9 non-preg [facility] Comment on above: Result Comment: Gest ational Age 0.2-1 Week: 5-50 mIU/mL 1-2 Weeks: 50-500 mIU/mL 2-3 Weeks: 100-5000 mIU/mL 3-4 Weeks: 500-10,000 mIU/mL 4-5 Weeks:1000-50,000 mIU/mL 5-6 Weeks: 10,000-100,000 mIU/mL 6-8 Weeks: 15,000-200,000 mIU/mL 2-3 Months:10,000-100,000 mIU/mL Performed By: #### L 700.8000 ####[facility] [address] [place], [place], [id number] Serum human chorionic gonado tropin detection for pregnancyOrdered By: Rae Nogueira on 11-09-2024 HCG ( test) Ql 1887 mIU/mL High <9 [facility] Comment on above: Gestational Age0.2-1 Week: 5-50 mIU/mL1-2 Weeks: 50-500 mIU/mL2-3 Weeks: 100-5000 mIU/mL3-4 Weeks: 500-10,000 mIU/mL4-5 Weeks:1000-50,000 mIU/mL5-6 Weeks: 10,000-100,000 mIU/mL6-8 Weeks: 15,000-200,000 mIU/mL2-3 Months:10,000-100,000 mIU/mL hCG Titer Quant., Serumon HCG QUANT. 1887 mIU/mL High <9 non-preg [facility] Comment on above: Result Comment: Gest ational Age 0.2-1 Week: 5-50 mIU/mL 1-2 Weeks: 50-500 mIU/mL 2-3 Weeks: 100-5000 mIU/mL 3-4 Weeks: 500-10,000 mIU/mL 4-5 Weeks:1000-50,000 mIU/mL 5-6 Weeks: 10,000-100,000 mIU/mL 6-8 Weeks: 15,000-200,000 mIU/mL 2-3 Months:10,000-100,000 mIU/mL Performed By: #### L 700.8000 ####[facility] [address] [place], [address] Serum human chorionic gonado tropin detection for pregnancyOrdered By: Kirstie Carter on 11-04-2024 HCG ( test) Ql 390 mIU/mL High <9 [facility] Comment on above: Gestational Age0.2-1 Week: 5-50 mIU/mL1-2 Weeks: 50-500 mIU/mL2-3 Weeks: 100-5000 mIU/mL3-4 Weeks: 500-10,000 mIU/mL4-5 Weeks:1000-50,000 mIU/mL5-6 Weeks: 10,000-100,000 mIU/mL6-8 Weeks: 15,000-200,000 mIU/mL2-3 Months:10,000-100,000 mIU/mL hCG Titer Quant., Serumon HCG QUANT. 390 mIU/mL High <9 non-preg [facility] Comment on above: Result Comment: Gest ational Age 0.2-1 Week: 5-50 mIU/mL 1-2 Weeks: 50-500 mIU/mL 2-3 Weeks: 100-5000 mIU/mL 3-4 Weeks: 500-10,000 mIU/mL 4-5 Weeks:1000-50,000 mIU/mL 5-6 Weeks: 10,000-100,000 mIU/mL 6-8 Weeks: 15,000-200,000 mIU/mL 2-3 Months:10,000-100,000 mIU/mL Performed By: #### L 700.8000 #### [facility] Laboratory [address] [place], [address] Plastic Surgery Visit Report on 10-26-2024 Plastic Surgery Visit Report [facility] Plastic Reconstructive Surgery [address] [place] [address] OFFICE VISIT Date of Service: 10/26/24 MR#: [id number] Acct: [id number] Name: STEFANIA NICOLE Michael Rep #: [id number] : 1990 Provider: Dr. 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 Helga Min MD Status:REG [facility] Discharge Instructions Dressing / Incision Additional Dressing/Incision [...] Attending Provider: Olinda Berrios Primary Care Provider: Helga Min Instructions Print Language: Grenadian Discharge Orders/Prescriptions Prescriptions: New sulfamethoxazole-trimeth oprim [Bactrim] [...] tabs/24 hr PO Referrals / Follow Up: Helga Min MD [Primary Care Provider] - Disposition Disposition (needs filled in before D/C Order can be placed): Home, Self Care 10/15/24951 Olinda Berrios MD CC: Dr. Helga Min MD Signed Normal [facility] Operative Reporton 5 Operative Report [facility] Medical Records Department [address] [place] [address] Operative Report 10/15/2452 MR#: [id number] Acct: [id number] Name: STEFANIA NICOLE Rep #: [id number] : 1990 34 From: Olinda Berrios MD PCP: Dr. 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 Helga Min MD; Dr. Olinda Berrios MD Signed Normal [facility] Surgery Specimen Level Kris 10-15-2024 Surgery Specimen Level IV Patient Age/Sex Location Account Attending Physician STEFANIA NICOLE 34/F [facility] [id number] Dr. Olinda Berrios MD Specimen: [id number] Received: 10/15/24 Status: [facility]rick Num: [id number] Spec Type: Lesion Subm Dr: Dr. Olinda [...] partially adherent to epidermis)B2. Remainder of specimen [facility] 10-15-2024 CPT:91352q4 Patient Age/Sex Location Account Attending Physician STEFANIA NICOLE 34/F [facility] [id number] Dr. Olinda Berrios MD Signed (signature on file) Dr. Deb Paz MD 10/20/24 1712 Normal [facility] Comment on above: Performed By: #### P SUIV ####[facility] [address] [place], [place], [id number] Plastic Surgery Visit Report on 10-13-2024 Plastic Surgery Visit Report [facility] Plastic Reconstructive Surgery [address], [address] [place], [place] [address] OFFICE VISIT Date of Service: 10/13/24 MR#: [id number] Acct: [id number] Name: STEFANIA NICOLE Rep #: [id number] : 1990 Provider: Dr. Olinda lezama MD Age/Sex: 34/F Location: [facility] Status: Signed Intake Vital Signs 05/24/24 08:58 [...] back of head, would like removed [facility] Medical History (Updated 10/13/24 @ 14:30 by [...] spouse current occupational status: employed 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 Smoking Status: Never smoker alcohol intake: [...] developed Nutritional Appearance: well nourished Orientation: alert HENCA Head: normal to inspection, normocephalic and atraumatic Ears: hearing grossly normal bilaterally Nose: external nose normal Face and sinus: normal facial exam and face symmetric Mouth: lip normal Eyes General: appearance normal, both eyes and all related structures Eyelids: eyelids normal Pupils: PERRL EOM: EOM intact b (more content not included)... Normal [facility] Absolute lymphocyte countOrd ered By: HEALTH ASSESSMENT on 10-11-2024 Lymphocytes Auto (Unsp spec) [#/Vol] 2.84 10*3/uL 0.83-4.51 [facility] Absolute neutrophil countOrd ered By: HEALTH ASSESSMENT on 10-11-2024 Neutrophils (Bld) [#/Vol] 5.2 10*3/uL 2.0-7.7 [facility] Absolute nucleated red blood cell countOrdered By: HEALTH ASSESSMENT on 10-11-2024 Nucleated RBC (Bld) [#/Vol] 0.00 10*3/uL 0-5 [facility] Anion gap in Serum or Plasma Ordered By: HEALTH ASSESSMENT on 10-11-2024 Anion gap [Moles/Vol] 13 mmol/L 5-15 [facility] BUN/creatinine ratioOrdered By: HEALTH ASSESSMENT on 10-11-2024 Urea nitrogen/Creatinine [Mass ratio] 11.6 mg/mg 10-20 [facility] Bilirubin Test strip Ql (U)O rdered By: HEALTH ASSESSMENT on 10-11-2024 Bilirubin Ql (U) 1 mg/dL High Negative [facility] Comment on above: COLOR OF URINE MAY A FFECT DIPSTICK RESULTS. Bilirubin directOrdered By: HEALTH ASSESSMENT on 10-11-2024 Bilirubin.direct [Mass/Vol] 0.19 mg/dL 0.00-0.30 [facility] Bilirubin, totalOrdered By: HEALTH ASSESSMENT on 10-11-2024 Bilirubin [Mass/Vol] 0.49 mg/dL 0.00-1.30 [facility] CBC, [employer] 10-11-2024 Absolute Lymph 2.84 X10 3/uL Normal 0.83-4.51 [facility] Comment on above: Performed By: #### L 700.8000 #### [facility] Laboratory [address] [place], [place], [id number] ([address] Absolute Neut 5.2 X10 3/uL Normal 2.0-7.7 [facility] Comment on above: Performed By: #### L 700.8000 #### [facility] Laboratory [address] [place], [address] Basophils/100 WBC (Bld) 0.7 % Normal 0-1 [facility] Comment on above: Performed By: #### L 700.8000 #### [facility] Laboratory [address] [place], [address] Eosinophils/100 WBC (Bld) 1.0 % Normal 0-5 [facility] Comment on above: Performed By: #### L 700.8000 #### [facility] Laboratory [address] [place], [address] Erythrocyte distribution width (RBC) [Ratio] 12.2 % Normal 11.6-14.6 [facility] Comment on above: Performed By: #### L 700.8000 #### [facility] Laboratory [address] [place], [address] Hematocrit (Bld) [Volume fraction] 42.7 % Normal 37-47 [facility] Comment on above: Performed By: #### L 700.8000 #### [facility] Laboratory [address] [place], [address] Hemoglobin (Bld) [Mass/Vol] 14.7 g/dL Normal 12.0-15.0 [facility] Comment on above: Performed By: #### L 700.8000 #### [facility] Laboratory [address] [place], [address] Lymphocytes/100 WBC (Bld) 32.1 % Normal 19-41 [facility] Comment on above: Performed By: #### L 700.8000 #### [facility] Laboratory [address] [place], [address] MCH (RBC) [Entitic mass] 29.2 pg Normal 27.0-32.0 [facility] Comment on above: Performed By: #### L [id number] #### [facility] Laboratory [address] [place], [address] MCHC (RBC) [Mass/Vol] 34.4 g/dL Normal 32-36 [facility] Comment on above: Performed By: #### L [id number] #### [facility] Laboratory [address] [place], [address] MCV (RBC) [Entitic vol] 84.7 fL Normal 81-99 [facility] Comment on above: Performed By: #### L 700.8000 #### [facility] Laboratory [address] [place], [address] Monocytes/100 WBC (Bld) 7.4 % Normal 0-10 [facility] Comment on above: Performed By: #### L 700.8000 #### [facility] Laboratory [address] [place], [address] Neutrophils/100 WBC (Bld) 58.5 % Normal 47-70 [facility] Comment on above: Performed By: #### L [id number] #### [facility] Laboratory [address] [place], [address] NRBC # 0.00 10 3/uL Normal 0-5 [facility] Comment on above: Performed By: #### L 700.8000 #### [facility] Laboratory [address] [place], [address] Nucleated RBC (Bld) [#/Vol] 0 10*3/uL Normal 0-5 [facility] Comment on above: Performed By: #### L 700.8000 #### [facility] Laboratory [address] [place], [address] Platelet mean volume (Bld) [Entitic vol] 9.1 fL Normal 6.2-12.0 [facility] Comment on above: Performed By: #### L 700.8000 #### [facility] Laboratory [address] [place], [address] Platelets (Bld) [#/Vol] 430 10*3/uL Normal 150-450 [facility] Comment on above: Performed By: #### L 700.8000 #### [facility] Laboratory [address] [place], [address] RBC (Bld) [#/Vol] 5.04 10*6/uL Normal 4.2-5.4 [facility] Comment on above: Performed By: #### L 700.8000 #### [facility] Laboratory [address] [place], [address] RDW SD 37.2 fl Normal 35.1-43.9 [facility] Comment on above: Performed By: #### L 700.8000 #### [facility] Laboratory [address] [place], [address] WBC (Bld) [#/Vol] 8.9 10*3/uL Normal 4.4-11.0 [facility] Comment on above: Performed By: #### L 700.8000 #### [facility] Laboratory [address] [facility] [place], [place], [id number] Calculated very low density lipoprotein (VLDL) cholesterol measurementOrdered By: HEALTH ASSESSMENT on 10-11-2024 Calculated very low density lipoprotein (VLDL) cholesterol measurement 22 mg/dL 5-40 [facility] VLDL Cholesterol 22 mg/dL 5-40 [facility] Carbon dioxide, total [Moles /volume] in Central venous bloodOrdered By: HEALTH ASSESSMENT on 10-11-2024 CO2 [Moles/Vol] 22.9 mmol/L 21.0-32.0 [facility] Chloride assayOrdered By: HE ALTH ASSESSMENT on 10-11-2024 Chloride [Moles/Vol] 102 mmol/L 98-108 [facility] Employee Profile[employer] Cholesterol in LDL [Mass/Vol] 109 mg/dL Normal 0-130 [facility] Comment on above: Performed By: #### L 700.8000 #### [facility] Laboratory [address] [facility] [place], [place], [id number] Erythrocyte distribution wid th (RBC) [Ratio]Ordered By: HEALTH ASSESSMENT on 10-11-2024 Erythrocyte distribution width (RBC) [Entitic vol] 37.2 fL 35.1-43.9 [facility] Erythrocyte distribution wid th ratioOrdered By: HEALTH ASSESSMENT on 10-11-2024 Erythrocyte distribution width (RBC) [Ratio] 12.2 % 11.6-14.6 [facility] Erythrocyte distribution wid th standard deviationOrdered By: HEALTH ASSESSMENT on 10-11-2024 Erythrocyte distribution width (RBC) [Ratio] 37.2 fl 35.1-43.9 [facility] GFR/1.73 sq M.predicted faviola g non-blacks MDRD (S/P/Bld) [Vol rate/Area]Ordered By: HEALTH ASSESSMENT on 10-11-2024 Estimated GFR (MDRD) Non-Af Amer 97 >60 [facility] Comment on above: mL/min/1.73m2 CKD-EP I Creatinine Equation (2020) Glomerular filtration rate ( GFR) estimation/1.73 sq m using serum, plasma, or whole bOrdered By: HEALTH ASSESSMENT on 10-11-2024 GFR/1.73 sq M.predicted among non-blacks MDRD (S/P/Bld) [Vol rate/Area] 97 mL/min/{1.73_m2} >60 [facility] Comment on above: mL/min/1.73m2 CKD-EP I Creatinine Equation (2020) Glucose Ql (U)Ordered By: HE ALTH ASSESSMENT on 10-11-2024 Urine Glucose (UA) Normal mg/dl Normal [facility] Hematocrit Auto (Bld) [Volum e fraction]Ordered By: HEALTH ASSESSMENT on 10-11-2024 Hematocrit (Bld) [Volume fraction] 42.7 % 37-47 [facility] Hemoglobin measurementOrdere d By: HEALTH ASSESSMENT on 10-11-2024 Hemoglobin (Bld) [Mass/Vol] 14.7 g/dL 12.0-15.0 [facility] Ketones Test strip Ql (U)Ord ered By: HEALTH ASSESSMENT on 10-11-2024 Ketones Ql (U) Negative Negative [facility] Laboratory - Chemistry and C hemistry - challengeOrdered By: HEALTH ASSESSMENT on 10-11-2024 AST [Catalytic activity/Vol] 23 U/L <32 [facility] Lactate dehydrogenase (LDH) measurementOrdered By: HEALTH ASSESSMENT on 10-11-2024 LDH [Catalytic activity/Vol] 168 U/L 84-246 [facility] Comment on above: Hemolysis present, R esults could be affected. Low density lipoprotein (LDL ) cholesterol measurementOrdered By: HEALTH ASSESSMENT on 10-11-2024 Cholesterol in LDL [Mass/Vol] 109 mg/dL 0-130 [facility] Lymphocytes Auto (Unsp spec) [#/Vol]Ordered By: HEALTH ASSESSMENT on 10-11-2024 Lymphocytes (Bld) [#/Vol] 2.84 10*3/uL 0.83-4.51 [facility] MCV (mean corpuscular volume ) determinationOrdered By: HEALTH ASSESSMENT on 10-11-2024 MCV (RBC) [Entitic vol] 84.7 fL 81-99 [facility] Mean corpuscular hemoglobin (MCH) determinationOrdered By: HEALTH ASSESSMENT on 10-11-2024 MCH (RBC) [Entitic mass] 29.2 pg 27.0-32.0 [facility] Mean corpuscular hemoglobin concentration (MCHC) determinationOrdered By: HEALTH ASSESSMENT on 10-11-2024 MCHC (RBC) [Mass/Vol] 34.4 g/dL 32-36 [facility] Mean platelet volume determi nationOrdered By: HEALTH ASSESSMENT on 10-11-2024 Platelet mean volume (Bld) [Entitic vol] 9.1 fL 6.2-12.0 [facility] Neutrophil percentageOrdered By: HEALTH ASSESSMENT on 10-11-2024 Neutrophils/100 WBC (Bld) 58.5 % 47-70 [facility] Nitrite Test strip Ql (U)Ord ered By: HEALTH ASSESSMENT on 10-11-2024 Nitrite Ql (U) Negative Negative [facility] Nucleated red blood cell per centageOrdered By: HEALTH ASSESSMENT on 10-11-2024 Nucleated RBC/100 WBC (Bld) [Ratio] 0 % 0-5 [facility] Platelet countOrdered By: HE ALTH ASSESSMENT on 10-11-2024 Platelets (Bld) [#/Vol] 430 10*3/uL 150-450 [facility] Potassium (Unsp spec) [Mass/ Vol]Ordered By: HEALTH ASSESSMENT on 10-11-2024 Potassium [Moles/Vol] 3.8 mmol/L 3.3-5.1 [facility] Potassium measurement (mass/ volume)Ordered By: HEALTH ASSESSMENT on 10-11-2024 Potassium (Unsp spec) [Mass/Vol] 3.8 mmol/L 3.3-5.1 [facility] Protein Test strip Ql (U)Ord ered By: HEALTH ASSESSMENT on 10-11-2024 Protein Ql (U) 30 mg/dl High Negative [facility] RBC Auto (Bld) [#/Vol]Ordere d By: HEALTH ASSESSMENT on 10-11-2024 RBC (Bld) [#/Vol] 5.04 10*6/uL 4.2-5.4 [facility] Screening total cholesterol/ high density lipoprotein (HDL) cholesterol ratioOrdered By: HEALTH ASSESSMENT on 10-11-2024 Cholesterol.total/Chol esterol in HDL [Mass ratio] 3.20 {ratio} [facility] Serum creatinine measurement (mass/volume)Ordered By: HEALTH ASSESSMENT on 10-11-2024 Creatinine [Mass/Vol] 0.82 mg/dL 0.70-1.20 [facility] Serum globulin measurementOr dered By: HEALTH ASSESSMENT on 10-11-2024 Globulin (S) [Mass/Vol] 2.7 g/dL 2.2-4.2 [facility] Serum glucose measurement (m ass/volume)Ordered By: HEALTH ASSESSMENT on 10-11-2024 Glucose [Mass/Vol] 86 mg/dL 70-99 [facility] Serum or plasma alanine santos otransferase (ALT) measurementOrdered By: HEALTH ASSESSMENT on 10-11-2024 ALT [Catalytic activity/Vol] 32 U/L <35 [facility] Serum or plasma albumin iris urement (mass/volume)Ordered By: HEALTH ASSESSMENT on 10-11-2024 Albumin [Mass/Vol] 4.4 g/dL 3.5-5.0 [facility] Serum or plasma albumin/glob ulin mass ratioOrdered By: HEALTH ASSESSMENT on 10-11-2024 Albumin/Globulin [Mass ratio] 1.7 {ratio} 0.9-2.4 [facility] Serum or plasma alkaline aries sphatase measurementOrdered By: HEALTH ASSESSMENT on 10-11-2024 ALP [Catalytic activity/Vol] 49 U/L 35-104 [facility] Serum or plasma calcium iris urement (mass/volume)Ordered By: HEALTH ASSESSMENT on 10-11-2024 Calcium [Mass/Vol] 9.4 mg/dL 7.6-11.0 [facility] Serum or plasma cholesterol in HDL measurement (mass/volume)Ordered By: HEALTH ASSESSMENT on 10-11-2024 Cholesterol in HDL [Mass/Vol] 60 mg/dL >40 [facility] Comment on above: National Cholesterol Education Program (NCEP) guidelines:<40 mg/dL: Low HDL-cholesterol (major risk factor for CHD)>= 60 mg/dL: High HDL-cholesterol (negative risk factor for CHD)HDL-cholesterol is affected by a number of factors, e.g. smoking, exercise, hormones, sex and age. Serum or plasma cholesterol measurement (mass/volume)Ordered By: HEALTH ASSESSMENT on 10-11-2024 Cholesterol [Mass/Vol] 191 mg/dL <201 [facility] Comment on above: Cholesterol level, D esirable <200 mg/dLBorderline high cholesterol 200-239 mg/dLHigh cholesterol >=240 mg/dLRecommendations of the NCEP Adult Treatment Panel for the following risk-cutoff thresholds for the [place] population. Serum or plasma urea nitroge n measurement (mass/volume)Ordered By: HEALTH ASSESSMENT on 10-11-2024 Urea nitrogen [Mass/Vol] 9 mg/dL 4-19 [facility] Serum or plasma uric acid me asurement (mass/volume)Ordered By: HEALTH ASSESSMENT on 10-11-2024 Urate [Mass/Vol] 5.2 mg/dL 2.6-6.0 [facility] Comment on above: The drugs N-Acetylcy steine and Metamizole may falsely depress this assay. Serum phosphorus measurement Ordered By: HEALTH ASSESSMENT on 10-11-2024 Phosphorus Level 3.1 mg/dL 2.7-4.5 [facility] Sodium levelOrdered By: [facility] ASSESSMENT on 10-11-2024 Sodium [Moles/Vol] 138 mmol/L 133-145 [facility] Total proteinOrdered By: [facility] ASSESSMENT on 10-11-2024 Protein [Mass/Vol] 7.1 g/dL 5.9-8.4 [facility] Triglycerides measurementOrd ered By: HEALTH ASSESSMENT on 10-11-2024 Triglyceride [Mass/Vol] 108 mg/dL <199 [facility] Comment on above: The drugs N-Acetylcy steine and Metamizole may falsely depress this assay. Normal range: <150 mg/dLBorderline High: 150-199 mg/dLHigh: 200-499 mg/dLVery High: >500 mg/dL Urinalysis, [employer] 10-11 BILIRUBIN URINE 1 mg/dL Abnormal Negative [facility] Comment on above: Order Comment: Urine , Random Result Comment: COLO R OF URINE MAY AFFECT DIPSTICK RESULTS. Performed By: #### L 700.8000 #### [facility] Laboratory [address] [place], [place], [id number] Color (U) Yellow Normal Yellow [facility] Comment on above: Order Comment: Urine , Random Performed By: #### L 700.8000 #### [facility] Laboratory [address] [place], [address] Clarity (U) Sl. Cloudy Normal Clear [facility] Comment on above: Order Comment: Urine , Random Performed By: #### L 700.8000 #### [facility] Laboratory [address] [place], [address] GLUCOSE, UR Normal Normal Normal [facility] Comment on above: Order Comment: Urine , Random Performed By: #### L 700.8000 #### [facility] Laboratory [address] [place], [address] KETONE UR Negative Normal Negative [facility] Comment on above: Order Comment: Urine , Random Performed By: #### L 700.8000 #### [facility] Laboratory [address] [place], [address] LEUK ESTERASE 25 /ul Abnormal Negative [facility] Comment on above: Order Comment: Urine , Random Performed By: #### L 700.8000 #### [facility] Laboratory [address] [place], [address] Nitrite Ql (U) Negative Normal Negative [facility] Comment on above: Order Comment: Urine , Random Performed By: #### L 700.8000 #### [facility] Laboratory [address] [place], [address] OCCULT BLOOD-UR 25 /ul Abnormal Negative [facility] Comment on above: Order Comment: Urine , Random Performed By: #### L 700.8000 #### [facility] Laboratory [address] [place], [address] pH UR 6.0 Normal 5.0 - 8.0 [facility] Comment on above: Order Comment: Urine , Random Performed By: #### L 700.8000 #### [facility] Laboratory [address] [place], [address] PROT DIPSTX 30 mg/dl Abnormal Negative [facility] Comment on above: Order Comment: Urine , Random Performed By: #### L 700.8000 #### [facility] Laboratory [address] [place], [address] SP.GR. DIPSTX 1.020 Normal 1.002-1.030 [facility] Comment on above: Order Comment: Urine , Random Performed By: #### L 700.8000 #### [facility] Laboratory [address] [place], [place], [address] UROBILI 1 mg/dl Abnormal Normal [facility] Comment on above: Order Comment: Urine , Random Performed By: #### L 700.8000 #### [facility] Laboratory [address] [place], [place], [address] Urine blood detectionOrdered By: HEALTH ASSESSMENT on 10-11-2024 Urine Occult Blood 25 /ul High Negative [facility] Urine clarityOrdered By: [facility] HEALTH ASSESSMENT on 10-11-2024 Clarity (U) Sl. Cloudy Clear [facility] Urine color determinationOrd ered By: HEALTH ASSESSMENT on 10-11-2024 Color (U) Yellow Yellow [facility] Urine glucose detectionOrder ed By: HEALTH ASSESSMENT on 10-11-2024 Glucose Ql (U) Normal mg/dl Normal [facility] Urine leukocyte esterase det ection by dipstickOrdered By: HEALTH ASSESSMENT on 10-11-2024 Leukocyte esterase Test strip Ql (U) 25 /ul High Negative [facility] Urine pHOrdered By: HEALTH A SSESSMENT on 10-11-2024 pH (U) 6.0 [pH] 5.0 - 8.0 [facility] Urine specific gravity measu rementOrdered By: HEALTH ASSESSMENT on 10-11-2024 Specific gravity (U) [Rel density] 1.020 1.002-1.030 [facility] Urine urobilinogen measureme ntOrdered By: HEALTH ASSESSMENT on 10-11-2024 Urobilinogen Ql (U) 1 mg/dl High Normal [facility] Urobilinogen Ql (U)Ordered B y: HEALTH ASSESSMENT on 10-11-2024 Urobilinogen (U) [Mass/Vol] 1 mg/dL High Normal [facility] White blood cell (WBC) count Ordered By: HEALTH ASSESSMENT on 10-11-2024 WBC (Bld) [#/Vol] 8.9 10*3/uL 4.4-11.0 [facility] Influenza virus A and B and SARS-CoV-2 (COVID-19) and Respiratory syncytial virus RNAOrdered By: Per Fairchild on 09-27-2024 SARS-CoV-2 (COVID-19) RNA JIM+probe Ql (Unsp spec) [facility] M100.678on 09-27-2024 M100.678 Pending SARS-CoV-2 (COVID 19) Negative INFLUENZA A Negative INFLUENZA B Negative RSV PCR Negative Normal [facility] Comment on above: Performed By: #### M 100.678 ####[facility] [address] [facility] [place], [place], [address] Pelvic w/ Transvaginalon Pelvic w/ Transvaginal [facility] [address] [place], [place] [address] Pelvic w/ Transvaginal MR#: [id number] Acct: [id number] Name: STEFANIA NICOLE Rep #: [id number] : 1990 F 34 From: Remigio giang MD PCP: Dr. Helga Min MD Status: REG CLI Study: Pelvic w/ Transvaginal Date of Exam: 09/06/24 Exam# [id number] Ordering Dr: Kirstie Carter MAT[employer] HAND[employer]ER FLOORPERSON MATERIAL HAND[employer]ER FLOORPERSON -C PROCEDURE: PELVIC W/ TRANSVAGINAL REASON FOR [...] Heterogeneous appearance of the myometrium. Reading Location: [id number] CC: NEELAM Carter; Dr. Helga Min MD Marketing Developer: Signed Normal [facility] Influenza virus A and B and SARS-CoV-2 (COVID-19) and Respiratory syncytial virus RNAOrdered By: Per Fairchild on 2024 SARS-CoV-2 (COVID-19) RNA JIM+probe Ql (Unsp spec) [facility] M100.678on 2024 M100.678 SARS-CoV-2 (COVID 19 ) Negative INFLUENZA A Negative INFLUENZA B Negative RSV PCR Negative [facility] Comment on above: Performed By: #### L 422.1280 #### [facility] Laboratory [address] [place] [address]. [place], [address] Influenza virus A and B and SARS-CoV-2 (COVID-19) and Respiratory syncytial virus RNAOrdered By: Per Fairchild on 08-17-2024 SARS-CoV-2 (COVID-19) RNA JIM+probe Ql (Unsp spec) [facility] M100.678on 08-17-2024 M100.678 Pending SARS-CoV-2 (COVID 19) Negative INFLUENZA A Negative INFLUENZA B Negative RSV PCR Negative Normal [facility] Comment on above: Performed By: #### M 100.678 ####[facility] [address] [place], [address] Absolute neutrophil countOrd ered By: Carisalucrecia Mohan on 07-01-2024 Neutrophils (Bld) [#/Vol] 4.8 10*3/uL 2.0-7.7 [facility] Basophil percentageOrdered B y: Carisa Mohan on 07-01-2024 Basophils/100 WBC (Bld) 1.0 % 0-1 [facility] CBC W/Diff, Automatedon 06-13 Absolute Lymph 2.24 X10 3/uL Normal 0.83-4.51 [facility] Comment on above: Performed By: #### L 700.8000 #### [facility] Laboratory [address] [place], [address] Absolute Neut 4.8 X10 3/uL Normal 2.0-7.7 [facility] Comment on above: Performed By: #### L 700.8000 #### [facility] Laboratory [address] [place], [address] Basophils/100 WBC (Bld) 1.0 % Normal 0-1 [facility] Comment on above: Performed By: #### L 700.8000 #### [facility] Laboratory [address] [place], [address] Eosinophils/100 WBC (Bld) 0.7 % Normal 0-5 [facility] Comment on above: Performed By: #### L 700.8000 #### [facility] Laboratory [address] [place], [address] Erythrocyte distribution width (RBC) [Ratio] 12.5 % Normal 11.6-14.6 [facility] Comment on above: Performed By: #### L 700.8000 #### [facility] Laboratory [address] [place], [address] Hematocrit (Bld) [Volume fraction] 44.5 % Normal 37-47 [facility] Comment on above: Performed By: #### L 700.8000 #### [facility] Laboratory [address] [place], [address] Hemoglobin (Bld) [Mass/Vol] 14.9 g/dL Normal 12.0-15.0 [facility] Comment on above: Performed By: #### L 700.8000 #### [facility] Laboratory [address] [place], [address] IG% 0.300 Normal 0.0-0.9 [facility] Comment on above: Result Comment: IG% - Immature Granulocytes (promyelocytes, myelocytes and metamyelocytes) > 1% indicates that a LEFT SHIFT is Present. Performed By: #### L 700.8000 #### [facility] Laboratory [address] [place], [address] Lymphocytes/100 WBC (Bld) 29.2 % Normal 19-41 [facility] Comment on above: Performed By: #### L 700.8000 #### [facility] Laboratory [address] [place], [address] MCH (RBC) [Entitic mass] 28.9 pg Normal 27.0-32.0 [facility] Comment on above: Performed By: #### L 700.8000 #### [facility] Laboratory [address] [place], [address] MCHC (RBC) [Mass/Vol] 33.5 g/dL Normal 32-36 [facility] Comment on above: Performed By: #### L 700.8000 #### [facility] Laboratory [address] [place], [address] MCV (RBC) [Entitic vol] 86.4 fL Normal 81-99 [facility] Comment on above: Performed By: #### L 700.8000 #### [facility] Laboratory [address] [place], [address] Monocytes/100 WBC (Bld) 6.5 % Normal 0-10 [facility] Comment on above: Performed By: #### L 700.8000 #### [facility] Laboratory [address] [place], [address] Neutrophils/100 WBC (Bld) 62.3 % Normal 47-70 [facility] Comment on above: Performed By: #### L 700.8000 #### [facility] Laboratory [address] [place], [address] Nucleated RBC (Bld) [#/Vol] 0 10*3/uL Normal 0-5 [facility] Comment on above: Performed By: #### L 700.8000 #### [facility] Laboratory [address] [place], [address] Platelet mean volume (Bld) [Entitic vol] 9.9 fL Normal 6.2-12.0 [facility] Comment on above: Performed By: #### L 700.8000 #### [facility] Laboratory [address] [place], [address] Platelets (Bld) [#/Vol] 441 10*3/uL Normal 150-450 [facility] Comment on above: Performed By: #### L 700.8000 #### [facility] Laboratory [address] [place], [address] RBC (Bld) [#/Vol] 5.15 10*6/uL Normal 4.2-5.4 [facility] Comment on above: Performed By: #### L 700.8000 #### [facility] Laboratory [address] [place], [address] RDW SD 39.3 fl Normal 35.1-43.9 [facility] Comment on above: Performed By: #### L 700.8000 #### [facility] Laboratory [address] [place], [address] WBC (Bld) [#/Vol] 7.7 10*3/uL Normal 4.4-11.0 [facility] Comment on above: Performed By: #### L 700.8000 #### [facility] Laboratory [address] [place], [address] Eosinophil percentageOrdered By: Carisa Mohan on 07-01-2024 Eosinophils/100 WBC (Bld) 0.7 % 0-5 [facility] Erythrocyte distribution wid th (RBC) [Ratio]Ordered By: Carisa Mohan on 07-01-2024 Erythrocyte distribution width (RBC) [Entitic vol] 39.3 fL 35.1-43.9 [facility] Erythrocyte distribution wid th ratioOrdered By: Carisalucrecia Mohan on 07-01-2024 Erythrocyte distribution width (RBC) [Ratio] 12.5 % 11.6-14.6 [facility] Hematocrit Auto (Bld) [Volum e fraction]Ordered By: Carisa Mohan on 07-01-2024 Hematocrit (Bld) [Volume fraction] 44.5 % 37-47 [facility] Hemoglobin measurementOrdere d By: Carisa Mohan on 07-01-2024 Hemoglobin (Bld) [Mass/Vol] 14.9 g/dL 12.0-15.0 [facility] Immature granulocytes/100 WB C Auto (Bld)Ordered By: Carisa Mohan on 07-01-2024 Immature granulocytes/100 WBC (Bld) 0.300 % 0.0-0.9 [facility] Comment on above: IG% - Immature Granu locytes (promyelocytes, myelocytes and metamyelocytes) > 1% indicates that a LEFT SHIFT is Present. Lymphocytes Auto (Unsp spec) [#/Vol]Ordered By: Carisa Mohan on 07-01-2024 Lymphocytes (Bld) [#/Vol] 2.24 10*3/uL 0.83-4.51 [facility] Lymphocytes/100 WBC Auto (Un sp spec)Ordered By: Carisa Mohan on 07-01-2024 Lymphocytes/100 WBC (Bld) 29.2 % 19-41 [facility] MCV (mean corpuscular volume ) determinationOrdered By: Carisa Mohan on 07-01-2024 MCV (RBC) [Entitic vol] 86.4 fL 81-99 [facility] Mean corpuscular hemoglobin (MCH) determinationOrdered By: Carisa Mohan on 07-01-2024 MCH (RBC) [Entitic mass] 28.9 pg 27.0-32.0 [facility] Mean corpuscular hemoglobin concentration (MCHC) determinationOrdered By: Carisa Mohan on 07-01-2024 MCHC (RBC) [Mass/Vol] 33.5 g/dL 32-36 [facility] Mean platelet volume determi nationOrdered By: Carisa Mohan on 07-01-2024 Platelet mean volume (Bld) [Entitic vol] 9.9 fL 6.2-12.0 [facility] Monocyte percentageOrdered B y: Carisa Mohan on 07-01-2024 Monocytes/100 WBC (Bld) 6.5 % 0-10 [facility] Neutrophil percentageOrdered By: Carisa Mohan on 07-01-2024 Neutrophils/100 WBC (Bld) 62.3 % 47-70 [facility] Nucleated red blood cell per centageOrdered By: Carisa Mohan on 07-01-2024 Nucleated RBC/100 WBC (Bld) [Ratio] 0 % 0-5 [facility] Platelet countOrdered By: Jhoana Mohan on 07-01-2024 Platelets (Bld) [#/Vol] 441 10*3/uL 150-450 [facility] RBC Auto (Bld) [#/Vol]Ordere d By: Carisa Mohan on 07-01-2024 RBC (Bld) [#/Vol] 5.15 10*6/uL 4.2-5.4 [facility] White blood cell (WBC) count Ordered By: Carisa Mohan on 07-01-2024 WBC (Bld) [#/Vol] 7.7 10*3/uL 4.4-11.0 [facility] Internal Medicine Office Vis alfonso 05-20-2024 Internal Medicine Office Visit [facility] [address] [place] [address] [address] [place], [place] [address] OFFICE VISIT Date of Service: 05/24/24 MR#: [id number] Acct: [id number] Name: STEFANIA NICOLE Rep #: [id number] : 1990 Provider: Dr. Helga rey MD Age/Sex: 33/F Location[place] [facility] Status: Signed with Addenda ADDENDUM by SUDHEER Pereira on 05/24/24 at 0959 Office Procedure Documentation entered by Bernarda Pereira MA 05/24/24 09:59: Immunizations Flucelvax Triv 5180-3611 (PF) 45 mcg (15 mcg x 3)/0.5 mL IM syringe Performing Provider: Helga Min MD Performing Location: [facility] Administered by: Bernarda Pereira MA on 05/24/24 09:57 Dose Route Admin Location Dispensed Lot Number Expiration Date [facility] Man ufacturer 0.5 mL IM Left Deltoid 0.5 mL [id number] 12/08/24 61767-875-95 [employer], [employer]. VIS Given Date VIS Provided VIS Publication [...] - FRIEND PT Chief Complaint: est care Data Administrator Required: No Accompanied by: Self Is patient [...] History (Updated 05/24/24 @ 09:[address] 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 She was seeing [facility] and last saw them about a year [...] She r (more content not included)... Normal [facility] Gastric Emptying Studyon Gastric Emptying Study [facility] [address] [place] [address] [id number] Gastric Emptying Study MR#: [id number] Acct: [id number] Name: STEFANIA NICOLE Rep #: [id number] : 1990 F 33 From: Peter Martinez PCP: SILVANO GRACE MD Status: REG [facility] Study: Gastric Emptying Study Date of Exam: 05/18/24 Exam# [id number] Ordering Dr: Ana Paula Palmer MATERIAL HAND[employer]ER FLOORPERSON-C [id number] CLINICAL: 33-year-old female with history of early [...] Tech 38: 186, 2010). Electronically Signed: Peter Ritter, at 7:47 EST Reading Location ID and State: [facility] / [place] Tel , Service support , CC: NEELAM Palmer; SILVANO GRACE MD Marketing Developer: Signed Normal [facility] Genital Culture Comprehensiv yadiel 05-15-2024 VAC Reason for Exam: Vag inal discharge Normal vaginal bob isolated. No yeast, Gardnerella, Neisseria or beta-hemolytic Streptococcus isolated. Normal [facility] Comment on above: Performed By: #### L 700.8000 #### [facility] Laboratory [address] [place], [place], [address] Gram Stainon 05-12-2024 Reason for Exam: Vag inal discharge Gram Stain 3+ Gram positive rods No Gram negative diplococci No White Blood Cells Score = 1 Interpretation: 0-3 Normal, 4-6 Intermediate, 7-10 Positive BV Normal [facility] Comment on above: Performed By: #### L 700.8000 #### [facility] Laboratory [address] [facility], [address] Bi Specialist Office Visit Reporton 05-12-2024 Bi Specialist Office Visit Report [facility] [address] [place] [address] OFFICE VISIT Date of Service: 05/12/24 MR#: [id number] Acct: [id number] Name: STEFANIA NICOLE Rep #: [id number] : 1990 Provider: NEELAM coronado Age/Sex: 33/F Location: [facility] Status: Signed Intake Vital Signs 05/12/24 14:18 Height 5 ft 2 in Weight: 145 lb 2 oz BMI 26.5 BP 118/84 H Intake Visit Reasons: Brown discharge x 2 weeks Chief Complaint: Brown discharge x 2 weeks Data Administrator Required: No Is patient in pain?: No [...] : No : No Control Method: [facility] Surgical History No significant past surgical history Family History (Updated 05/12/24 @ 14:25 by Thao Selby) Grandfather Cancer Lung- maternal Grandmother Breast cancer Paternal Social History (Updated 05/12/24 @ 14:25 by Thao Selby) household members: spouse current occupational status: employed 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 Denies new sexual partner. Denies irritation or itching but has noted slight odor. She is on full menses today. States was seeing provider in [place] and has tried orthotricyclen, loloestrin and now the lo tri daphne and always has brown discharge. 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 Female Reproductive History Last Menstrual Period: [...] also pap 05/12/24 1443 Date Kirstie Carter MATERIAL HANDLER FLOORPERSON MATERIAL HANDLER FLOORPERSON-C Cosigner Signature: Date (if applicable) CC: Normal [facility] Hepatitis B Surface Antigeno n 09-19-2023 HBV surface Ag Ql (S) Negative Negative [facility] Hepatitis B Surface antibody on 09-19-2023 HBV surface Ab Ql (S) Negative Negative [facility] Mumps Antibody, IgGon 2023 Interpretation and review of laboratory results Abnormal [facility] MuV IgG Ql (S) Positive Abnormal Negative [facility] Assay performed usin g Diasorin CLIA methodology. [facility] No Panel Informationon 09-18 Interpretation and review of laboratory results Normal [facility] Test performed using Nilsa BERTO immunoassay system [facility] Rubeola Antibody, IgGon -0 MeV IgG Ql (S) Immune [facility] Assay performed usin g Diasorin CLIA methodology. [facility] Vaginitis DNA ProbesOrdered By: Radha Crowe on 09-19-2023 Ken sp DNA Probe+sig amp Ql (Vag fld) Negative Negative [facility] G. vaginalis DNA Probe+sig amp Ql (Vag fld) Negative Negative [facility] Interpretation and review of laboratory results Normal [facility] T. vaginalis DNA Probe+sig amp Ql (Vag fld) Refer to Trichomonas Amplified RNA Result Negative [facility] Cervical AND or Vaginal cyto logy studyon 06-17-2023 Cytology Cervical or vaginal smear or scraping study Pathology report.total SEE COMMENT Gynecologic Cytology Case: [id number] Authorizing Provider: Nikki Stevens MD Collected: 06/17/2023 1508 Ordering Location: [facility] Received: 06/17/2023 1508 Office Building First [...] screened by LO Rodriguez at [facility] [address] [facility] [id number] By the signature on this report, the individual or group listed as making the Final Interpretation/Diagnosis certifies that they have reviewed this case. This specimen has been analyzed by the [employer] Touch [employer] System ([employer] an automated imaging and review system, which assists the laboratory in evaluating cells on ThinPrep Pap tests. Following automated imaging, selected trotter from every slide were reviewed by a dairy husbandry teacher and/or pathologist. Cervical cytology is a screening [...] LAB AP HPV GENOTYPE QUESTION Yes Normal [facility] HPV 16 and 18 and 31+33+35+3 9+45+51+52+56+58+59+66+68 DNA Pnl (Cvx)on 06-17-2023 HPV 16 DNA JIM+probe Ql (Unsp spec) Negative Normal Negative [facility] Comment on above: Order Comment: Testi [...] verified by the [facility] at [facility]. The lab is certified under the Clinical Laboratory Amendments of 1988 (CLIA 88) as qualified to perform high complexity clinical laboratory testing. PERFORMING LAB LOCATIONS [facility]: [address] [place] [address].[place] [address] Performed By: #### 7 1432-9 #### DL Horvath ([id number]) [facility] ([facility]) [address] [place] [address] HPV 18 DNA JIM+probe Ql (Unsp spec) Negative Normal Negative [facility] Comment on above: Order Comment: Testi [...] verified by the [facility] at [facility]. The lab is certified under the Clinical Laboratory Amendments of 1988 (CLIA 88) as qualified to perform high complexity clinical laboratory testing. PERFORMING LAB LOCATIONS [facility]: [address] [place], [place] [address].[place], [place] [address] Performed By: #### 7 1432-9 #### DL Horvath ([id number]) [facility] ([facility]) [address] [place] [address] HPV 31+33+35+39+45+51+52+5 6+58+59+66+68 DNA JIM+probe Ql (Genital specimen) Negative Normal Negative [facility] Comment on above: Order Comment: Testi [...] verified by the Molecular Diagnostic Laboratory at [facility]. The lab is certified under the Clinical Laboratory Amendments of 1988 (CLIA 88) as qualified to perform high complexity clinical laboratory testing. PERFORMING LAB LOCATIONS [facility]: [address] [place] [address] Performed By: #### 7 1432-9 #### DL Horvath ([id number]) [facility] ([facility]) [address] [place] [address] Human papilloma virus high-risk genotypes panel Negative Normal Negative [facility] Comment on above: Order Comment: Testi [...] verified by the Molecular Diagnostic Laboratory at [facility]. The lab is certified under the Clinical Laboratory Amendments of 1988 (CLIA 88) as qualified to perform high complexity clinical laboratory testing. PERFORMING LAB LOCATIONS [facility]: [address] [place] [address] Performed By: #### 7 1432-9 #### DL Horvath ([id number]) [facility] ([facility]) [address] [place] [address] VEGETABLE PACKER - Office Visiton VEGETABLE PACKER - Office Visit Diagnoses/Problems Assessed Contraception management (V25.9) (Z30.9) Orders Start: Tri-Sprintec 0.18/0.215/0.25 MG-35 MCG Oral Tablet; TAKE 1 TABLET BY MOUTH EVERY DAY PAP ROUGH PLANER TENDER, Cytology; Status:In Progress - Specimen/Data Collected,Retrospective Authorization; [...] IUD Vitals Vital Signs Recorded: 19Dec2022 01:24PM Nbgfumpk730 Encpqszrb22 Height5 ft 3 in Vjvdze385 lb 3.71 oz BMI Jvdxcilrns64.38 kg/m2 BSA Calculated1.68 LMPIUD Physical Exam Constitutional: [...] History History of Intrauterine device placement 11/28/2020: Liletta Family History No pertinent family history Family history of diabetes mellitus (V18.0) (Z83.3) Social History Does not use illicit drugs (V49.89) (Z78.9) Never a smoker No alcohol use Sexually active Allergies Augmentin Diarrhea; Recorded By: Radha Hogan; 03/29/2020 3:47:46 PM Current Meds Medication NameInstruction Liletta (52 MG) 19.5 MCG/DAY IUD Vitals Vital Signs Recorded: 08Cuw4450 03:26PM Heart Rate84 Bxyacsxw384 Xzxjdqqbg34 Height5 ft 3 in Dwpgdj882 lb BMI Mqqeqgmghz87.33 kg/m2 BSA Calculated1.68 Tobacco Useb) No Falls [...] jackknife position with the assistance of my manager of medical, Bernarda. This revealed minimally enlarged internal hemorrhoids. These did not appear friable. There was no bleeding on contact with the scope. Musculoskeletal: Moves all extremities, warm, no edema Skin: warm and dry Signatures Electronically signed by : Michele Thornton MD; Nov 28 2022 7:50AM EST (Author) Normal [employer] Tobacco Screening.on 023 Fall risk assessment a) No falls within the last year [facility] Work Phone: Tobacco use status [facility] b) No [facility] Work Phone: Initial Visit (Orthopaedic [...] 19.5 MCG/DAY IUD Vitals Vital Signs Recorded: 44Lxj5436 02:24PM Uhjvyqzhmmw81.8 F Height5 ft 2 in Kbxaji783 lb BMI Oozlyqbbat48.79 kg/m2 BSA Calculated1.65 Tobacco Useb) No Falls [...] Mar 11 2022 2:45PM EST (Author) Normal [facility] 03-11-2022 XR Wrist - bilateral 3 Views Please click on the link to view the study images Normal [facility] [address] Work Phone: [phone] XR Wrist - bilateral 3 Views Normal [facility] 300 Work Phone: [phone] Tobacco Screening.on 022 Fall risk assessment b) One or more fall s in the last year [facility] 300 Work Phone: [phone] Tobacco use status [facility] b) No [facility] 300 Work Phone: WRIST COMPLT MIN 3 VIEWSon 0 03-11-2022 WRIST COMPLT MIN 3 VIEWS Patient Name: STEFANIA SCHAFER STUDY: Right wrist 3 views. INDICATION: right wrist pain M25.531: Right wrist pain. COMPARISON: None. ACCESSION NUMBER(S): [id number] ORDERING CLINICIAN: JACKIE BARRIGA FINDINGS: No acute fracture or malalignment. No significant degenerative changes. Soft tissues are within normal limits. IMPRESSION: 1. Unremarkable right wrist radiographs. Electronically signed by: LARA DOBBINS MD Normal [facility] Comprehensive metabolic 2000 panelon 07-24-2021 Albumin [Mass/Vol] 4.5 g/dL 3.2 - 5.2 g/dL [facility] ALP [Catalytic activity/Vol] 104 U/L 40 - 140 U/L [facility] ALT [Catalytic activity/Vol] 52 U/L 14 - 65 U/L [facility] Anion gap [Moles/Vol] 11 mmol/L 10 - 2 0 mmol/L [facility] AST [Catalytic activity/Vol] 16 U/L 0 - 45 U/L [facility] Bilirubin [Mass/Vol] 0.4 mg/dL 0.0 - 1 .3 mg/dL [facility] Calcium [Mass/Vol] 9.5 mg/dL 8.4 - 10. 2 mg/dL [facility] Chloride [Moles/Vol] 106 mmol/L 98 - 10 8 mmol/L [facility] Creatinine [Mass/Vol] 0.62 mg/dL 0.40 - 1.10 [facility] GFR/1.73 sq M.predicted CKD-EPI (S/P/Bld) [Vol rate/Area] 123 >=60 mL/min/1.73 m2 [facility] Glucose [Mass/Vol] 91 mg/dL 65 - 99 mg/dL [facility] HCO3 [Moles/Vol] 27 mmol/L 21 - 32 mmol/L [facility] Interpretation and review of laboratory results Abnormal [facility] Potassium [Moles/Vol] 4.5 mmol/L 3.5 - 5.1 mmol/L [facility] Protein [Mass/Vol] 7.7 g/dL 6.0 - 8.0 g/dL [facility] Sodium [Moles/Vol] 139 mmol/L 135 - 145 mmol/L [facility] Urea nitrogen [Mass/Vol] 15 mg/dL 8 - 25 mg/dL [facility] Urea nitrogen/Creatinine [Mass ratio] 24.2 mg/mg High [facility] The eGFR should be u sed for monitoring renal function only and not for medication dosing. [facility] No Panel Informationon 07-24 [facility] TSH DL <= 0.005 mIU/L Qnon 0 07-24-2021 Interpretation and review of laboratory results Normal [facility] TSH Qn 1.43 m[IU]/L [facility] LMPon 12-15-2020 Last menstrual period start date MICHEAL [facility] [address] Work Phone: [phone] GC + Chlamydia By Amplified Detectionon 11-28-2020 C. trachomatis rRNA JIM+probe Ql (Unsp spec) Negative Negative [facility] [address] Work Phone: [phone] N. gonorrhoeae rRNA JIM+probe Ql (Unsp spec) Negative Negative [facility] [address] Work Phone: [phone] Comment on above: SOURCE: Urine IO HCG, Urine Test on 11-28-2020 HCG ( test) Ql (U) Negative Normal [facility] [address] Work Phone: [phone] Cult, Urineon 03-29-2020 Bacteria identified Cx Nom (U) PATIENT: STEFANIA SCHAFER LOCATION: [facility] BILL#: [id number] : 89 AGE: SEX: F ORDERED BY: CAROLE MANCUSO SOURCE: URINE COLLECTED: 03/29/20 15:41 ANTIBIOTICS AT BRUNA.: RECEIVED : 03/30/20 02:47 SITE: Clean Catch/Voided R E S U L T S URINE CULTURE,BACTERIAL FINAL 03/30/20 20:25 NO SIGNIFICANT GROWTH. [facility] [address] Work Phone: GC + Chlamydia By Amplified Detectionon 03-29-2020 C. trachomatis rRNA JIM+probe Ql (Unsp spec) Negative Negative [facility] [address] Work Phone: N. gonorrhoeae rRNA JIM+probe Ql (Unsp spec) Negative Negative [facility] [address] Work Phone: Comment on above: SOURCE: Urine Hepatitis B Surface Antigeno n 03-29-2020 Hepatitis B Surface Antigen Non-Reactive See Below [facility] [address] Work Phone: Comment on above: SOURCE: Reference Ra nge: NONREACTIVE Biotin interference may cause falsely decreased results. Patients taking a Biotin dose of up to 5 mg/day should refrain from taking Biotin for 24 hours before sample collection. Providers may contact their local laboratory for further information. SOURCE: Reference Ra nge: NONREACTIVE HIV Ag/Ab screen is performed using the [employer] HIV Ag/Ab Combo assay which detects the [...] Nom (Bld) [facility] [address] Work Phone: Comment on above: NA Blood group antibody screen Ql Negative [facility] [address] Work Phone: Comment on above: NA Rh immune globulin screen (Bld) [Interp] Positive [facility] [address] Work Phone: [phone] Comment on above: NA No Panel Informationon 03-29 96.4 % [facility] [address] Work Phone: [phone] 0.4 % [facility] [address] Work Phone: [phone] 3.2 % [facility] [address] Work Phone: [phone] Comment on above: HGB A2 values may be falsely elevated in the presence of HGB S. SEE COMMENT [facility] [address] Work Phone: Comment on above: Normal Path Review-HGB Identificati onon 03-29-2020 Path Review-HGB Identification EVANS [facility] [address] Work Phone: Comment on above: By her/his signature above, the Pathologist listed as making the final interpretation certifies that she/he has personally reviewed this case. Rubella IgG Antibodyon 03-29 Rubella virus IgG IA Ql Positive [facility] [address] Work Phone: Comment on above: SOURCE: INTERPRETATI [...] (S) Non-Reactive See Below [facility] [address] Work Phone: Comment on above: SOURCE: Reference Ra nge: NONREACTIVENo significant level of Treponema pallidum antibody detected. Repeat testing in 2 to 4 weeks may be considered if early infection or incubating syphilis infection is suspected. Comprehensive Metabolic Pane saul 05-17-2019 Albumin [Mass/Vol] 4.3 g/dL 3.2 - 5.2 g/dL [facility] ALP [Catalytic activity/Vol] 75 U/L 40 - 140 U/L [facility] ALT [Catalytic activity/Vol] 27 U/L 14 - 65 U/L [facility] Anion gap [Moles/Vol] 9 mmol/L Low 10 - 2 0 mmol/L [facility] AST [Catalytic activity/Vol] 13 U/L 0 - 45 U/L [facility] Bilirubin [Mass/Vol] 0.4 mg/dL 0 - 1.3 mg/dL [facility] Calcium [Mass/Vol] 8.7 mg/dL 8.4 - 10. 2 mg/dL [facility] Chloride [Moles/Vol] 107 mmol/L 98 - 10 8 mmol/L [facility] Creatinine [Mass/Vol] 0.58 mg/dL 0.4 - 1.1 mg/dL [facility] GFR/1.73 sq M predicted among non-blacks MDRD (S/P/Bld) [Vol rate/Area] The eGFR should be used for monitoring renal function only and not for medication dosing. [facility] GFR/1.73 sq M.predicted CKD-EPI (S/P/Bld) [Vol rate/Area] 128 >=60 mL/min/1.73 m2 [facility] Glucose [Mass/Vol] 86 mg/dL 65 - 99 mg/dL [facility] HCO3 [Moles/Vol] 29 mmol/L 21 - 32 mmol/L [facility] Interpretation and review of laboratory results Abnormal [facility] Potassium [Moles/Vol] 3.9 mmol/L 3.5 - 5.1 mmol/L [facility] Protein [Mass/Vol] 7.6 g/dL 6 - 8 g/dL [facility] Sodium [Moles/Vol] 141 mmol/L 135 - 145 mmol/L [facility] Urea nitrogen [Mass/Vol] 8 mg/dL 8 - 25 mg/dL [facility] Urea nitrogen/Creatinine [Mass ratio] 13.8 mg/mg [facility] Lipid Panelon 05-17-2019 Cholesterol [Mass/Vol] 150 mg/dL 100 - 199 mg/dL [facility] Comment on above: National Cholesterol Education Program Guidelines: Cholesterol Desirable: <200 mg/dL Borderline High: 200-239 mg/dL High: greater than or equal to 240 mg/dL Cholesterol in HDL [Mass/Vol] 61 mg/dL 40 - 59 [facility] Comment on above: National Cholesterol Education Program Guidelines: HDL Cholesterol Low: <40 mg/dL Near Optimal: 40-59 mg/dL High: greater than or equal to 60 mg/dL Cholesterol in LDL [Mass/Vol] 73 mg/dL 10 - 130 mg/dL [facility] Comment on above: National Cholesterol Education Program Guidelines: LDL Cholesterol Optimal: <100 mg/dL Near Optimal/above Optimal: 100-129 mg/dL Borderline High: 130-159 mg/dL High: 160-189 mg/dL Very High: greater than or equal to 190 mg/dL Cholesterol non HDL [Mass/Vol] 89 mg/dL [facility] Comment on above: National Cholesterol Education Program Guidelines: NON HDL Cholesterol Desirable: <130 mg/dL Borderline High: 130-159 mg/dL High: 160-189 mg/dL Very High: > or = 190 mg/dL Cholesterol.total/Chol esterol in HDL [Mass ratio] 2.5 {ratio} ratio [facility] Comment on above: Female Cholesterol/H DL Ratio: Average risk: 4.4 1/2 average risk: 3.3 2 x average risk: 7.1 Triglyceride [Mass/Vol] 81 mg/dL 30 - 150 mg/dL [facility] Comment on above: National Cholesterol Education Program Guidelines: Triglyceride Normal: <150 mg/dL Borderline High: 150-199 mg/dL High: 200-499 mg/dL Very High: greater than or equal to 500 mg/dL TSH with Reflex Free T4on Interpretation and review of laboratory results Normal [facility] TSH Qn 1.10 m[IU]/L [facility] Placenta Pathology Request - NO EXAMon 01-13-2018 Placenta Pathology Request - NO EXAM Collected Normal [facility] Comment on above: Performed By: #### 2 [id number] ####JOELLEMelody [address] [place] [address] Hematocriton 01-11-2018 Hematocrit (HCT) 35.1 % Low 36.0-48.0 [facility] Comment on above: Order Comment: first post- day Performed By: #### 2 [id number] ####JOELLE [address] [place] [address] Hemoglobinon 01-11-2018 Hemoglobin mass conc (Bld) 11.9 g/dL Low 12.0-16.0 [facility] Comment on above: Order Comment: first post- day Performed By: #### 2 [id number] ####JOELLE [address] [place] [address] Auto Diffon 01-09-2018 Basophils Auto #/vol (Bld) 0.0 E3/mcL Normal 0.0-0.2 [facility] Comment on above: Order Comment: Order Added by Discern Expert. Performed By: #### 2 [id number] ####JOELLE [address] [place] [address] Basophils/100 WBC Auto (Bld) 0.2 % Normal 0.0-2.0 [facility] Comment on above: Order Comment: Order Added by Discern Expert. Performed By: #### 2 [id number] ####JOELLE [address] [place] [address] Eos Absolute 0.1 E3/mcL Normal 0.0-0.7 [facility] Comment on above: Order Comment: Order Added by Discern Expert. Performed By: #### 2 [id number] ####JOELLE [address] [place] [address] Eosinophils/100 leukocytes 0.6 % Normal 0.0-11.0 [facility] Comment on above: Order Comment: Order Added by Discern Expert. Performed By: #### 2 046474 ####JOELLE [address] [place] [address] Lymphocytes 3.4 E3/mcL Normal 1.2-3.4 [facility] Comment on above: Order Comment: Order Added by Discern Expert. Performed By: #### 2 [id number] ####JOELLE [address] [place] [address] Lymphocytes/100 leukocytes 23.2 % Normal 20.0-55.0 [facility] Comment on above: Order Comment: Order Added by Discern Expert. Performed By: #### 2 849049 ####JOELLE [address] [place] [address] Kimble Absolute 1.0 E3/mcL High 0.0-0.7 [facility] Comment on above: Order Comment: Order Added by Discern Expert. Performed By: #### 2 598154 ####JOELLE [address] [place] [address] Monocytes/100 leukocytes 7.0 % Normal 0.0-10.0 [facility] Comment on above: Order Comment: Order Added by Discern Expert. Performed By: #### 2 030471 ####JOELLE [address] [place] [address] Neutro Absolute 10.3 E3/mcL High 1.4-6.5 [facility] Comment on above: Order Comment: Order Added by Discern Expert. Performed By: #### 2 [id number] ####JOELLE [address] [place] [address] Neutro Auto 69.0 % Normal 37.0-75.0 [facility] Comment on above: Order Comment: Order Added by Discern Expert. Performed By: #### 2 178106 ####JOELLE [address] [place] [address] CBC w/ Auto Diffon 8 Erythrocyte distribution width Auto Ratio (RBC) 13.6 % Normal 11.5-14.5 [facility] Comment on above: Performed By: #### 2 [id number] ####JOELLE [address] [place] [address] Erythrocytes (RBC) 4.34 E6/mcL Normal 3.90-5.40 [facility] Comment on above: Performed By: #### 2 482128 ####JOELLE [address] [place] [address] Hematocrit (HCT) 38.0 % Normal 36.0-48.0 [facility] Comment on above: Performed By: #### 2 165976 ####JOELLE [address] [place] [address] Hemoglobin mass conc (Bld) 13.1 g/dL Normal 12.0-16.0 [facility] Comment on above: Performed By: #### 2 [id number] ####JOELLE [address] [place] [id number] MCH 30.2 pg Normal 27.0-31.0 [facility] Comment on above: Performed By: #### 2 126085 ####JOELLE [address] [place] [id number] MCHC mass conc (RBC) 34.6 g/dL Normal 33.0-37.0 [facility] Comment on above: Performed By: #### 2 049729 ####JOELLE [address] [place] [address] MCV 87.4 fL Normal 78.0-100.0 [facility] Comment on above: Performed By: #### 2 [id number] ####JOELLE [address] [place] [id number] Platelet mean volume (PMV) 8.6 fL Normal 7.4-11.0 [facility] Comment on above: Performed By: #### 2 650612 ####JOELLE [address] [place] [id number] Platelets 268 E3/mcL Normal 130-400 [facility] Comment on above: Performed By: #### 2 888676 ####JOELLE [address] [place] [address] WBC (Leukocytes) 14.8 E3/mcL High 3.6-11.0 [facility] Comment on above: Performed By: #### 2 [id number] ####JOELLE [address] [place] [address] Group B Strep PCRon 12-16-19 18 Group B Strep PCR Negative Normal [facility] Comment on above: Order Comment: Order Added by Discern Expert. Performed By: #### 2 [id number] ####JOELLE [address] [place] [address] C Urineon 11-30-2017 C Urine Final Report: Normal skin bob isolated Normal [facility] Comment on above: Performed By: #### 2 [id number] ####JOELLE [address] [place] [address] Auto Diffon 09-30-2017 Basophils Auto #/vol (Bld) 0.0 E3/mcL Normal 0.0-0.2 [facility] Comment on above: Order Comment: Order Added by Discern Expert. Performed By: #### 2 134437 ####JOELLE [address] [place] [address] Basophils/100 WBC Auto (Bld) 0.2 % Normal 0.0-2.0 [facility] Comment on above: Order Comment: Order Added by Discern Expert. Performed By: #### 2 827474 ####JOELLE [address] [place] [address] Eos Absolute 0.1 E3/mcL Normal 0.0-0.7 [facility] Comment on above: Order Comment: Order Added by Discern Expert. Performed By: #### 2 097346 ####JOELLE [address] [place] [address] Eosinophils/100 leukocytes 1.0 % Normal 0.0-11.0 [facility] Comment on above: Order Comment: Order Added by Discern Expert. Performed By: #### 2 715856 ####JOELLE [address] [place] [address] Lymphocytes 2.3 E3/mcL Normal 1.2-3.4 [facility] Comment on above: Order Comment: Order Added by Discern Expert. Performed By: #### 2 365535 ####JOELLE [address] [place] [address] Lymphocytes/100 leukocytes 20.5 % Normal 20.0-55.0 [facility] Comment on above: Order Comment: Order Added by Discern Expert. Performed By: #### 2 040392 ####JOELLE [address] [place] [address] Kimble Absolute 0.8 E3/mcL High 0.0-0.7 [facility] Comment on above: Order Comment: Order Added by Discern Expert. Performed By: #### 2 503798 ####JOELLE [address] [place] [address] Monocytes/100 leukocytes 7.2 % Normal 0.0-10.0 [facility] Comment on above: Order Comment: Order Added by Discern Expert. Performed By: #### 2 784033 ####JOELLE [address] [place] [address] Neutro Absolute 7.8 E3/mcL High 1.4-6.5 [facility] Comment on above: Order Comment: Order Added by Discern Expert. Performed By: #### 2 556345 ####JOELLE [address] [place] [id number] Neutro Auto 71.1 % Normal 37.0-75.0 [facility] Comment on above: Order Comment: Order Added by Discern Expert. Performed By: #### 2 119403 ####JOELLE [address] [place] [address] CBC w/ Auto Diffon 8 Erythrocyte distribution width Auto Ratio (RBC) 13.8 % Normal 11.5-14.5 [facility] Comment on above: Performed By: #### 2 095327 ####JOELLE [address] [place] [address] Erythrocytes (RBC) 4.05 E6/mcL Normal 3.90-5.40 [facility] Comment on above: Performed By: #### 2 940878 ####JOELLE [address] [place] [address] Hematocrit (HCT) 35.5 % Low 36.0-48.0 [facility] Comment on above: Performed By: #### 2 962511 ####JOELLE [address] [place] [address] Hemoglobin mass conc (Bld) 12.2 g/dL Normal 12.0-16.0 [facility] Comment on above: Performed By: #### 2 421801 ####JOELLE [address] [place] [address] MCH 30.3 pg Normal 27.0-31.0 [facility] Comment on above: Performed By: #### 2 054454 ####JOELLE [address] [place] [id number] MCHC mass conc (RBC) 34.5 g/dL Normal 33.0-37.0 [facility] Comment on above: Performed By: #### 2 672120 ####JOELLE [address] [place] [address] MCV 87.8 fL Normal 78.0-100.0 [facility] Comment on above: Performed By: #### 2 647254 ####JOELLE [address] [place] [address] Platelet mean volume (PMV) 7.1 fL Low 7.4-11.0 [facility] Comment on above: Performed By: #### 2 719499 ####JOELLE [address] [place] [address] Platelets 256 E3/mcL Normal 130-400 [facility] Comment on above: Performed By: #### 2 803964 ####JOELLE [address] [place] [address] WBC (Leukocytes) 11.0 E3/mcL Normal 3.6-11.0 [facility] Comment on above: Performed By: #### 2 721234 ####JOELLE [address] [place] [address] Gest Scr Glu 1 [place] 10-01-19 18 Glucose mass conc 102 mg/dL Normal 70-140 [facility] Comment on above: Performed By: #### 2 790647 ####JOELLE [address] [place] [address] US After 1st Trime steron 08-22-2017 US [...] 3:54 pmSigned by: Shady Gómez DO Technologist: [facility] IGP W/hpv Rfx [id number] 07-03 Diagnosis: See Ref Lab Report [facility] Comment on above: Order Comment: Order Added by Discern Expert. Performed By: #### 2 191606 ####JOELLE [address] [place] [address] RPRon 07-02-2017 RPR Ql Non-Reactive Normal Non-Reactive [facility] Comment on above: Performed By: #### 2 [id number] ####JOELLE [address] [place] [address] C Urineon 06-29-2017 C Urine Final Report: Rare growth of Normal skin bob isolated [facility] Comment on above: Performed By: #### 2 [id number] ####JOELLE Microbiology [address] [place] [id number] Hep Bs Agon 06-28-2017 BSA (Body Surface Area) Negative Normal Negative [facility] Comment on above: Result Comment: Perf ormed At: [facility] [address] [place], [place] [id number] Vincent PhD Ph:[phone] Performed By: #### 2 664682 ####JOELLE Send Outs [address] [place] [address] ABO/Rh Echoon 06-27-2017 ABO/Rh E Interp... Positive Normal [facility] Comment on above: Performed By: #### 8 [id number] ####JOELLE [facility] [address] [address] Antibody Screen Cap...on Screen Interp... Negative Normal [facility] Comment on above: Performed By: #### 8 [id number] ####JOELLE [facility] [address] [address] Auto Diffon 06-27-2017 Basophils Auto #/vol (Bld) 0.0 E3/mcL Normal 0.0-0.2 [facility] Comment on above: Order Comment: Order Added by Discern Expert. Performed By: #### 2 [id number] ####JOELLE [id number] [place] [address] Basophils/100 WBC Auto (Bld) 0.3 % Normal 0.0-2.0 [facility] Comment on above: Order Comment: Order Added by Discern Expert. Performed By: #### 2 [id number] ####JOELLE [id number] [place] [address] Eos Absolute 0.1 E3/mcL Normal 0.0-0.7 [facility] Comment on above: Order Comment: Order Added by Discern Expert. Performed By: #### 2 [id number] ####JOELLE [id number] [place] [address] Eosinophils/100 leukocytes 0.7 % Normal 0.0-11.0 [facility] Comment on above: Order Comment: Order Added by Discern Expert. Performed By: #### 2 [id number] ####JOELLE [id number] [place] [address] Lymphocytes 2.8 E3/mcL Normal 1.2-3.4 [facility] Comment on above: Order Comment: Order Added by Discern Expert. Performed By: #### 2 [id number] ####JOELLE [address] [place] [address] Lymphocytes/100 leukocytes 29.9 % Normal 20.0-55.0 [facility] Comment on above: Order Comment: Order Added by Discern Expert. Performed By: #### 2 [id number] ####JOELLE [address] [place] [address] Kimble Absolute 0.6 E3/mcL Normal 0.0-0.7 [facility] Comment on above: Order Comment: Order Added by Discern Expert. Performed By: #### 2 [id number] ####JOELLE [address] [place] [address] Monocytes/100 leukocytes 6.6 % Normal 0.0-10.0 [facility] Comment on above: Order Comment: Order Added by Discern Expert. Performed By: #### 2 [id number] ####JOELLE [address] [place] [address] Neutro Absolute 5.8 E3/mcL Normal 1.4-6.5 [facility] Comment on above: Order Comment: Order Added by Discern Expert. Performed By: #### 2 [id number] ####JOELLE [address] [place] [address] Neutro Auto 62.5 % Normal 37.0-75.0 [facility] Comment on above: Order Comment: Order Added by Discern Expert. Performed By: #### 2 [id number] ####JOELLE [address] [place] [address] CBC w/ Auto Diffon 7 Erythrocyte distribution width Auto Ratio (RBC) 12.6 % Normal 11.5-14.5 [facility] Comment on above: Performed By: #### 2 [id number] ####JOELLE [address] [place] [address] Erythrocytes (RBC) 4.46 E6/mcL Normal 3.90-5.40 [facility] Comment on above: Performed By: #### 2 [id number] ####JOELLE [address] [place] [address] Hematocrit (HCT) 38.2 % Normal 36.0-48.0 [facility] Comment on above: Performed By: #### 2 [id number] ####JOELLE [address] [place] [address] Hemoglobin mass conc (Bld) 13.0 g/dL Normal 12.0-16.0 [facility] Comment on above: Performed By: #### 2 [id number] ####JOELLE [address] [place] [id number] MCH 29.2 pg Normal 27.0-31.0 [facility] Comment on above: Performed By: #### 2 [id number] ####JOELLE [address] [place] [address] MCHC mass conc (RBC) 34.1 g/dL Normal 33.0-37.0 [facility] Comment on above: Performed By: #### 2 [id number] ####JOELLE [address] [place] [id number] MCV 85.6 fL Normal 78.0-100.0 [facility] Comment on above: Performed By: #### 2 [id number] ####JOELLE [address] [place] [address] Platelet mean volume (PMV) 7.4 fL Normal 7.4-11.0 [facility] Comment on above: Performed By: #### 2 [id number] ####JOELLE [address] [place] [address] Platelets 296 E3/mcL Normal 130-400 [facility] Comment on above: Performed By: #### 2 [id number] ####JOELLE [address] [place] [address] WBC (Leukocytes) 9.2 E3/mcL Normal 3.6-11.0 [facility] Comment on above: Performed By: #### 2 [id number] ####JOELLE [address] [place] [address] Chlamydia GC by PCRon 2016 Chlamydia by PCR. Not Detected Normal Not Detected [facility] Comment on above: Result Comment: Xper t CT/NG Assay performance has not been evaluated in patients less than 14 years of age. Performed By: #### 3 [id number] ####JOELLE Misc Micro SubSection, Gonorrhoeae by PCR Not Detected Normal Not Detected [facility] Comment on above: Result Comment: Xper t CT/NG Assay performance has not been evaluated in patients less than 14 years of age. Performed By: #### 3 [id number] ####JOELLE Misc Micro SubSection, HIV-1/2 Ag/Abon 06-27-2017 HIV-1/2 Ag/Ab Non-Reactive Normal Non-Reactive [facility] Comment on above: Performed By: #### 6 [id number] ####JOELLE Chemistry Manual [id number] [place] [address] Pathology ([facility])on 06-27-2017 Pathology ([facility]) FINAL GYNECOLOGIC CYTOLOGY [id number] ADEQUACYSatisfactory for EvaluationClinical information indicates , therefore endocervical component isnot applicable.GENERAL CATEGORIZATIONNegative for Intraepithelial Lesion or MalignancyDESCRIPTIVE DIAGNOSISFungi consistent with Ken species.CLINICAL HISTORYSPECIMEN( A) SCREENING CERVICAL/ENDOCERVICAL LIQUID-BASED PAPPerformed at [facility], [address] [place], [place] [address]Screened by: Signed Out by: XAVIER LUEVANO Fiscal Manager Reported: 07/02/2017 Normal [facility] Comment on above: Performed By: #### G YN ####[facility] [address] [place] [address] Rubella IgG Lvlon 06-27-2017 Rubella IgG Lvl 7.0 (NEG) Normal [facility] Comment on above: Result Comment: <10I U/ml NON REACTIVE: NOT [id number] IU/ml RUBELLA SPECIFIC AB PRESENT, EVALUATEFURTHER TO DETERMINE IMMUNE STATUS >15 IU/ml REACTIVE, IMMUNE Performed By: #### 2 [id number] ####JOELLE [id number] [place] [address] TSHon 06-27-2017 Thyroid stimulating hormone (TSH) 1.69 mIU/m Normal 0.30-5.60 [facility] Comment on above: Performed By: #### 2 [id number] ####JOELLE [id number] [place] [address] Vital Signs Date Time Vital Sign Value Performing Clinician Facility 12-15-2024 14:04-0400 Body height 157.[address] Helga Min MD Work Phone: [facility] 12-15-2024 14:00-0400 Body mass index (BMI) [Ratio] 26.5 kg/m2 Dr. Helga Min MD Work Phone: [facility] 12-15-2024 14:00-0400 Body weight 65.[address] Helga Min MD Work Phone: [facility] [place] 12-15-2024 14:00-0400 Diastolic blood pressure 85 mm[Hg] Dr. Helga Min MD Work Phone: [facility] [place] 12-15-2024 14:00-0400 Systolic blood pressure 127 mm[Hg] Dr. Helga Min MD Work Phone: [facility] [place] 12-01-2024 08:28-0400 Body height 157.[address] Helga Min MD Work Phone: [facility] [place] 12-01-2024 08:28-0400 Body mass index (BMI) [Ratio] 27.3 kg/m2 Dr. Helga Min MD Work Phone: [facility] 12-01-2024 08:28-0400 Body weight 67.[address] Helga Min MD Work Phone: [facility] 12-01-2024 08:28-0400 Diastolic blood pressure 81 mm[Hg] Dr. Helga Min MD Work Phone: [facility] [place] 12-01-2024 08:28-0400 Systolic blood pressure 127 mm[Hg] Dr. Helga Min MD Work Phone: [facility] 10-26-2024 14:17-0400 Body height 157.[address] Helga Min MD Work Phone: [facility] [place] 10-26-2024 14:17-0400 Body mass index (BMI) [Ratio] 27.2 kg/m2 Dr. Helga Min MD Work Phone: [facility] [place] 10-26-2024 14:17-0400 Body temperature 99 [degF] Dr. Helga Min MD Work Phone: [facility] 10-26-2024 14:17-0400 Body weight 67.[address] Helga Min MD Work Phone: [facility] 10-26-2024 14:17-0400 Diastolic blood pressure 81 mm[Hg] Dr. Helga Min MD Work Phone: [facility] 10-26-2024 14:17-0400 Heart rate 89 /min Dr. Helga Min MD Work Phone: [facility] 10-26-2024 14:17-0400 Respiratory rate 18 /min Dr. Helga Min MD Work Phone: [facility] 10-26-2024 14:17-0400 SaO2% (BldA) [Mass fraction] 97 % Dr. Helga Min MD Work Phone: [facility] 10-26-2024 14:17-0400 Systolic blood pressure 127 mm[Hg] Dr. Helga Min MD Work Phone: [facility] 10-15-2024 09:59-0400 Body temperature 97.5 [degF] Dr. Helga Min MD Work Phone: [facility] 10-15-2024 09:59-0400 Diastolic blood pressure 61 mm[Hg] Dr. Helga Min MD Work Phone: [facility] [place] 10-15-2024 09:59-0400 Heart rate 66 /min Dr. Helga Min MD Work Phone: [facility] [place] 10-15-2024 09:59-0400 Respiratory rate 16 /min Dr. Helga Min MD Work Phone: [facility] 10-15-2024 09:59-0400 SaO2% (BldA) [Mass fraction] 100 % Dr. Helga Min MD Work Phone: [facility] [place] 10-15-2024 09:59-0400 Systolic blood pressure 113 mm[Hg] Dr. Helga Min MD Work Phone: [facility] 10-15-2024 08:40-0400 Body height 157.[address] Helga Min MD Work Phone: [facility] 10-15-2024 08:40-0400 Body mass index (BMI) [Ratio] 27.4 kg/m2 Dr. Helga Min MD Work Phone: [facility] [place] 10-15-2024 08:40-0400 Body weight 68.[address] Helga Min MD Work Phone: [facility] 05-24-2024 08:58-0500 Body mass index (BMI) [Ratio] 28 kg/m2 Dr. Helga Min MD Work Phone: [facility] [place] 05-24-2024 08:58-0500 Body temperature 98.7 [degF] Dr. Helga Min MD Work Phone: [facility] [place] 05-24-2024 08:58-0500 Body weight 69.[address] Helga Min MD Work Phone: [facility] [place] 05-24-2024 08:58-0500 Diastolic blood pressure 68 mm[Hg] Dr. Helga Min MD Work Phone: [facility] [place] 05-24-2024 08:58-0500 Heart rate 79 /min Dr. Helga Min MD Work Phone: [facility] [place] 05-24-2024 08:58-0500 Respiratory rate 18 /min Dr. Helga Min MD Work Phone: [facility] 05-24-2024 08:58-0500 SaO2% (BldA) [Mass fraction] 96 % Dr. Helga Min MD Work Phone: [facility] [place] 05-24-2024 08:58-0500 Systolic blood pressure 103 mm[Hg] Dr. Helga Min MD Work Phone: [facility] 10-20-2023 10:37-0400 Body height 157.5 cm Silvano Grace MD Work Phone: [facility] 10-20-2023 10:37-0400 Body mass index (BMI) [Ratio] 26.52 kg/m2 Silvano Grace MD Work Phone: [facility] 10-20-2023 10:37-0400 Body temperature 98.6 [degF] Silvano Grace MD Work Phone: [facility] 10-20-2023 10:37-0400 Body weight 65.77 kg Silvano Grace MD Work Phone: [facility] 10-20-2023 10:37-0400 Diastolic blood pressure 83 mm[Hg] Silvano Grace MD Work Phone: [facility] 10-20-2023 10:37-0400 Heart rate 99 /min Silvano Grace MD Work Phone: [facility] 10-20-2023 10:37-0400 Respiratory rate 16 /min Silvano Grace MD Work Phone: [facility] 10-20-2023 10:37-0400 SaO2% (BldA) [Mass fraction] 98 % Silvano Grace MD Work Phone: [facility] 10-20-2023 10:37-0400 Systolic blood pressure 135 mm[Hg] Silvano Grace MD Work Phone: [facility] 09-18-2023 13:57-0500 Diastolic blood pressure 85 mm[Hg] Silvano Grace MD Work Phone: [facility] 09-18-2023 13:57-0500 Heart rate 111 /min Silvano Grace MD Work Phone: [facility] 09-18-2023 13:57-0500 Respiratory rate 98 /min Silvano Grace MD Work Phone: [facility] 09-18-2023 13:57-0500 Respiratory rate 16 /min Silvano Grace MD Work Phone: [facility] 09-18-2023 13:57-0500 Systolic blood pressure 125 mm[Hg] Silvano Grace MD Work Phone: [facility] 09-18-2023 13:52-0500 Body height 157.5 cm Silvano Grace MD Work Phone: [facility] 09-18-2023 13:52-0500 Body mass index (BMI) [Ratio] 26.63 kg/m2 Silvano Grace MD Work Phone: [facility] 09-18-2023 13:52-0500 Body temperature 97.59 [degF] Silvano Grace MD Work Phone: [facility] 09-18-2023 13:52-0500 Body weight 66.04 kg Silvano Grace MD Work Phone: [facility] 09-18-2023 13:52-0500 SaO2% (BldA) [Mass fraction] 98 % Silvano Grace MD Work Phone: [facility] 06-17-2023 14:41-0500 Body height 157.5 cm Nikki Stevens MD Work Phone: [facility] 06-17-2023 14:41-0500 Body mass index (BMI) [Ratio] 27.76 kg/m2 Nikki Stevens MD Work Phone: [facility] 06-17-2023 14:41-0500 Body weight 68.86 kg Nikki Stevens MD Work Phone: [facility] 06-17-2023 14:41-0500 Diastolic blood pressure 70 mm[Hg] Nikki Stevens MD Work Phone: [facility] 06-17-2023 14:41-0500 Systolic blood pressure 128 mm[Hg] Nikki Stevens MD Work Phone: [facility] 05-01-2023 15:11-0400 Body height 157.5 cm Silvano Grace MD Work Phone: [facility] 05-01-2023 15:11-0400 Body mass index (BMI) [Ratio] 27.98 kg/m2 Silvano Grace MD Work Phone: [facility] 05-01-2023 15:11-0400 Body temperature 98.71 [degF] Silvano Grace MD Work Phone: [facility] 05-01-2023 15:11-0400 Body weight 69.4 kg Silvano Grace MD Work Phone: [facility] 05-01-2023 15:11-0400 Diastolic blood pressure 86 mm[Hg] Silvano Grace MD Work Phone: [facility] 05-01-2023 15:11-0400 Heart rate 110 /min Silvano Grace MD Work Phone: [facility] 05-01-2023 15:11-0400 Respiratory rate 16 /min Silvano Grace MD Work Phone: [facility] 05-01-2023 15:11-0400 SaO2% (BldA) [Mass fraction] 98 % Silvano Grace MD Work Phone: [facility] 05-01-2023 15:11-0400 Systolic blood pressure 138 mm[Hg] Silvano Grace MD Work Phone: [facility] 11-25-2022 15:26-0400 Body height 160.02 cm No PCP None -[facility] Work Phone: 11-25-2022 15:26-0400 Body mass index (BMI) [Ratio] 25.33 kg/m2 No PCP None -[facility] Work Phone: 11-25-2022 15:26-0400 Body surface area Derived from formula 1.68 m2 No PCP None -[facility] Work Phone: 11-25-2022 15:26-0400 Body weight 64.86 kg No PCP None -[facility] Work Phone: 11-25-2022 15:26-0400 Diastolic blood pressure 76 mm[Hg] No PCP None -[facility] Work Phone: 11-25-2022 15:26-0400 Heart rate 84 /min No PCP None -[facility] Work Phone: 11-25-2022 15:26-0400 Systolic blood pressure 122 mm[Hg] No PCP None -[facility] Work Phone: 03-11-2022 14:24-0400 Body height 157.48 cm No PCP None -[facility] Work Phone: 03-11-2022 14:24-0400 Body mass index (BMI) [Ratio] 25.79 kg/m2 No PCP None -[facility] Work Phone: 03-11-2022 14:24-0400 Body surface area Derived from formula 1.65 m2 No PCP None -[facility] Work Phone: 03-11-2022 14:24-0400 Body temperature 97.8 [degF] No PCP None -[facility] Work Phone: 03-11-2022 14:24-0400 Body weight 63.96 kg No PCP None -[facility] Work Phone: 07-24-2021 15:21-0500 Body height 157.5 cm Katrin [place] [employer] Work Phone: [facility] 07-24-2021 15:21-0500 Body mass index (BMI) [Ratio] 26.16 kg/m2 Katrin [place] [employer] Work Phone: [facility] 07-24-2021 15:21-0500 Body temperature 98.71 [degF] [facility] [employer] Work Phone: [facility] 07-24-2021 15:21-0500 Body weight 64.86 kg Katrin [place] [employer] Work Phone: [facility] 07-24-2021 15:21-0500 Diastolic blood pressure 85 mm[Hg] Katrin [place] [employer] Work Phone: [facility] 07-24-2021 15:21-0500 Heart rate 101 /min [facility] [employer] Work Phone: [facility] 07-24-2021 15:21-0500 Respiratory rate 16 /min Katrin [place] [employer] Work Phone: [facility] 07-24-2021 15:21-0500 SaO2% (BldA) [Mass fraction] 98 % [facility] [employer] Work Phone: [facility] 07-24-2021 15:21-0500 Systolic blood pressure 116 mm[Hg] Katrin [place] [employer] Work Phone: [facility] 12-15-2020 11:24-0400 Body height 157.48 cm No PCP None [facility] [address] [place] Work Phone: 12-15-2020 11:24-0400 Body mass index (BMI) [Ratio] 25.64 kg/m2 No PCP None [facility] [address] Work Phone: 12-15-2020 11:24-0400 Body surface area Derived from formula 1.64 m2 No PCP None [facility] [address] Work Phone: 12-15-2020 11:24-0400 Body temperature 97.8 [degF] No PCP None [facility] [address] Work Phone: 12-15-2020 11:24-0400 Body weight 63.6 kg No PCP None [facility] [address] Work Phone: 12-15-2020 11:24-0400 Diastolic blood pressure 80 mm[Hg] No PCP [facility] [place] Work Phone: 12-15-2020 11:24-0400 Systolic blood pressure 114 mm[Hg] No PCP None [facility] [place] Work Phone: 11-28-2020 14:07-0400 Body height 157.48 cm No PCP None [facility] [address] Work Phone: 11-28-2020 14:07-0400 Body mass index (BMI) [Ratio] 26.77 kg/m2 No PCP None [facility] [place] Work Phone: 11-28-2020 14:07-0400 Body surface area Derived from formula 1.67 m2 No PCP None [facility] [place] Work Phone: 11-28-2020 14:07-0400 Body temperature 98 [degF] No PCP None [facility] [address] Work Phone: 11-28-2020 14:07-0400 Body weight 66.4 kg No PCP [facility] [address] Work Phone: 11-28-2020 14:07-0400 Diastolic blood pressure 70 mm[Hg] No PCP None [facility] [address] [place] Work Phone: 11-28-2020 14:07-0400 Systolic blood pressure 112 mm[Hg] No PCP None [facility] [place] Work Phone: 06-23-2020 15:55-0500 BMI (Body Mass Index) 29.52 kg/m2 Carole Mancuso [facility] [address] Work Phone: 06-23-2020 15:55-0500 Body Temperature 97.5 [degF] Carolejeana Mancuso [facility] [address] Work Phone: Comment on above: Method: Temporal 06-23-2020 15:55-0500 Body weight 73.2 kg Carolejeana Coatesir [facility] [address] Work Phone: 06-23-2020 15:55-0500 BP Diastolic 78 mm[Hg] Carole Columbia [facility] [address] Work Phone: 06-23-2020 15:55-0500 BP Systolic 110 mm[Hg] Carole Columbia [facility] [address] Work Phone: 06-23-2020 15:55-0500 BSA (Body Surface Area) 1.74 m2 Carole Columbia [facility] [address] Work Phone: 06-23-2020 15:55-0500 Height 157.48 cm Carolejeana Coatesir [facility] [address] Work Phone: 05-26-2020 15:12-0500 BMI (Body Mass Index) 27.22 kg/m2 Carolejeana Coatesir [facility] [address] Work Phone: 05-26-2020 15:12-0500 Body Temperature 97.5 [degF] Carole Coatesir [facility] [address] Work Phone: Comment on above: Method: Temporal 05-26-2020 15:12-0500 Body weight 67.5 kg Carolejeana Coatesir [facility] [address] Work Phone: 05-26-2020 15:12-0500 BP Diastolic 60 mm[Hg] Carole Columbia [facility] [address] Work Phone: Comment on above: [place] [facility] Position: Sitting 05-26-2020 15:12-0500 BP Systolic 120 mm[Hg] Carole Columbia [facility] [address] Work Phone: Comment on above: [place] [facility] [place]; Position: Sitting 05-26-2020 15:12-0500 BSA (Body Surface Area) 1.69 m2 Carole Mancuso [facility] [address] Work Phone: 05-26-2020 15:12-0500 Height 157.48 cm [facility]anc[facility] [address] Work Phone: 01-10-2020 15:42-0400 BMI (Body Mass [...] Date Encounter Type Care Provider Facility Start: 05-10-2025 ambulatory [place]ga [place] Start: 04-29-2025 End: 04-29-2025 ambulatory GABRIELLA XIAO [facility] Start: 04-25-2025 ambulatory Helga Deposit Facility :[facility] Start: 04-25-2025 ambulatory Helga Deposit Facility :[facility] Start: 04-22-2025 ambulatory Helga Deposit Facility :[facility] Start: 04-12-[address] Gabriella Xiao MD -Laboratory Work Phone: Start: 04-12-2025 End: 04-12-2025 ambulatory Helga Pako Facility:[facility] Start: 04-05-2025 Patient encounter procedure Rae Nogueira CNM -Laboratory Work Phone: Start: 04-05-2025 End: 04-05-2025 ambulatory Rae Nogueira Facility:[facility] Start: 04-03-2025 Patient encounter procedure Rae Nogueira CNM -Laboratory Work Phone: Start: 04-03-2025 End: 04-03-2025 ambulatory Rae Jero Facility:[facility] Start: 04-01-2025 End: 04-01-[address] Helga Min MD Work Phone: -Laboratory Start: 04-01-2025 End: 04-01-2025 Patient encounter procedure Rae Nogueira CNM -Laboratory Work Phone: Start: 04-01-2025 End: 04-01-2025 ambulatory Rae Nogueira Facility:[facility] Start: 03-11-2025 ambulatory [facility] Facility:[facility] Start: 02-03-2025 End: 02-03-[address] Olinda Berrios MD Work Phone: -Laboratory Start: 02-03-2025 End: 02-03-2025 Patient encounter procedure Margaret RICHTER -Laboratory Work Phone: Start: 02-03-2025 End: 02-03-2025 ambulatory Margaret Santizo Facility:[facility] [place] Start: 01-31-2025 ambulatory Helga Min Facility :[facility] Start: 01-26-2025 End: 01-26-[address] Olinda Berrios MD Work Phone: -Radiology [facility] Start: 01-26-2025 End: 01-26-2025 Patient encounter procedure Brenda Crawford PA -Radiology [facility] Work Phone: Start: 01-26-2025 End: 01-26-2025 ambulatory Brenda Crawford Facility:[facility] [place] Start: 12-17-2024 ambulatory SILVANO KHAN [facility] Start: 12-15-2024 End: 12-15-2024 Patient encounter procedure Margaret Santizo MATERIAL HANDLER FLOORPERSONKalpeshC -[facility] Work Phone: Start: 12-15-2024 End: 12-15-[address] Helga Min MD Work Phone: [facility] Work Phone: Start: 12-15-2024 End: 12-15-2024 ambulatory Margaret Santizo Facility:[facility] [place] Start: 12-10-[address] Per Fairchild MD -Employee Health Start: 12-10-2024 ambulatory Per Weiss ty:[facility] [place] Start: 12-08-2024 End: 12-08-[address] Helga Min MD Work Phone: [facility] Work Phone: Start: 12-08-2024 End: 12-08-[address] Imelda Metzger DO -[facility] Work Phone: Start: 12-08-2024 End: 12-08-2024 ambulatory Helga Deposit Facility:[facility] [place] Start: 12-01-2024 End: 12-01-[address] Imelda Metzger DO -[facility] Work Phone: Start: 12-01-2024 End: 12-01-[address] Imelda Metzger DO [facility] [place] Start: 12-01-2024 End: 12-01-[address] Helga Min MD Work Phone: [facility] Work Phone: Start: 11-30-2024 End: 12-01-2024 ambulatory Helga Woodardlay Facility:[facility] [place] Start: 11-22-2024 End: 11-22-[address] Helga Min MD Work Phone: [facility] [place] Work Phone: Start: 11-22-2024 End: 11-22-2024 Patient encounter procedure Rae OAKLEYM -Laboratory Work Phone: Start: 11-22-2024 End: 11-22-2024 ambulatory Helga Woodardlay Facility:[facility] [place] Start: 11-18-2024 End: 11-18-[address] Helga Min MD Work Phone: [facility] [place] Work Phone: Start: 11-18-2024 End: 11-18-2024 Patient encounter procedure Rae Nogueira CNM -Laboratory Work Phone: Start: 11-18-2024 End: 11-18-2024 ambulatory Helga Deposit Facility:[facility] [place] Start: 11-11-2024 End: 11-11-2024 Patient encounter procedure Rae Nogueira CNM -Laboratory,Future Work Phone: Start: 11-11-2024 End: 11-11-2024 ambulatory Helga Deposit Facility:[facility] [place] Start: 11-09-2024 End: 11-09-2024 Patient encounter procedure Kirstiejoy His MATERIAL HANDLER FLOORPERSON-C -Laboratory Work Phone: Start: 11-09-2024 End: 11-09-2024 ambulatory Helga Deposit Facility:[facility] [place] Start: 11-04-2024 End: 11-04-2024 Patient encounter procedure Margaret Sukhdev MATERIAL HANDLER FLOORPERSON-C -Laboratory Work Phone: Start: 11-04-2024 End: 11-04-2024 ambulatory Margaretjacqui Santizo Facility:[facility] [place] Start: 10-26-2024 End: 10-26-[address] Olinda Berrios MD -[facility] Work Phone: Start: 10-26-2024 End: 10-26-2024 ambulatory Helga Woodardlay [facility] Start: 10-15-2024 Non-patient / Non-visit Dr. Olinda michel MD -[facility] Start: 10-15-2024 End: 10-15-2024 Admission to same day surgery center Dr. Olinda Berrios MD -Surgical Day Care Start: 10-15-2024 End: 10-15-[address] Helga Min MD Work Phone: [facility] [place] Work Phone: Start: 10-13-2024 End: 10-13-[address] Olinda Berrios MD -[facility] Work Phone: Start: 10-13-2024 End: 10-13-2024 ambulatory Olinda Berrios Facility:[facility] Start: 10-11-2024 Registered Referred HEALTH RISK ASSE SSMENT -Laboratory Work Phone: Start: 10-11-2024 ambulatory Health Risk Assessment Facility:[facility] [place] Start: 10-01-2024 ambulatory SILVANO Black [facility] Ambulatory Start: 09-27-[address] 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 Per Fairchild MD -Employee Health Start: 2024 ambulatory Per Weiss ty:[facility] [place] Start: 08-17-[address] Per Fairchild MD -Employee Health Start: 08-17-2024 ambulatory Per Weiss ty:[facility] [place] Start: 08-05-2024 ambulatory Derrell Monaco Facility :[facility] [place] Start: 07-13-2024 ambulatory Helga Deposit Facility :[facility] Start: 07-01-2024 End: 07-01-2024 Patient encounter procedure Carisa Mohan PA -Laboratory, [facility] Start: 06-30-2024 End: 07-01-2024 ambulatory Helga Pako Facility:[facility] [place] Start: 05-24-2024 End: 05-24-2024 ambulatory SILVANO SANJAY Facility:[facility] Start: 05-18-2024 End: 05-18-2024 ambulatory Ana Paula Palmer Facility:[facility] [place] Start: 05-14-2024 ambulatory SILVANO Black [facility] Ambulatory Start: 05-12-2024 End: 05-12-2024 ambulatory SILVANO NÚÑEZEF [place] Start: 05-12-2024 End: 05-12-2024 ambulatory SILVANO [facility] Facility:[facility] [place] Start: 03-10-2024 ambulatory SILVANO KHAN [facility] Ambulatory Start: 02-18-2024 End: 02-18-2024 ambulatory SILVANO Brown [facility] Start: 02-09-2024 End: 02-09-2024 ambulatory SILVANO H [facility] Start: 02-07-2024 End: 02-09-2024 Refill Silvano Grace MD Work Phone: [facility] Start: 12-06-2023 Refill Silvano Grace MD Work Phone: [facility] Start: 10-31-2023 End: 10-31-2023 Clinical Support Jackie Hodge LPN [facility] Comment on above: Need for vaccination [Z23] (Primary Dx) Need for vaccination (Primary Dx) Start: 10-20-2023 End: 10-20-2023 Office outpatient visit 15 minutes Silvano Grace MD Work Phone: [facility] Comment on above: control counse evette (Primary Dx) Start: 09-26-2023 End: 09-26-2023 Clinical Support Jackie Hodge LPN [facility] Comment on above: Need for vaccination [Z23] (Primary Dx) Start: 09-18-2023 End: 09-22-2023 ambulatory SILVANO SEBASTIAN [facility] Start: 09-18-2023 End: 09-18-2023 Office outpatient visit 25 minutes Silvano Grace MD Work Phone: [facility] Comment on above: Vaginal discharge (P rimary Dx); Dyspareunia in female; Pre-employment examination Start: 06-17-2023 End: 06-17-2023 ambulatory [facility] Ambulatory Start: 06-17-2023 End: 06-17-2023 Encounter for gynecological examination (general) (routine) without abnormal findings [facility] Ambulatory Start: 06-17-2023 End: 06-17-2023 Patient encounter procedure Nikki Stevens MD Work Phone: [facility] Work Phone: Start: 06-17-2023 End: 06-17-2023 Periodic preventive med est patient 18-39 yrs Nikki Stevens MD Work Phone: [facility] Comment on above: Cervical cancer scre ening (Primary Dx); Encounter for annual routine gynecological examination; Encounter for surveillance of contraceptive pills Start: 05-01-2023 End: 05-01-2023 Patient encounter status Silvano Grace MD Work Phone: [facility] Start: 05-01-2023 End: 05-01-2023 Periodic preventive med est patient 18-39 yrs Silvano Grace MD Work Phone: [facility] Comment on above: Skin mole; Wellness examination; Hemorrhoids, unspecified hemorrhoid type; Rib pain Start: 02-20-2023 ambulatory CNM, SPOUT POSITIONER NIKKI RUTH Facility:[id number] Start: 12-19-2022 ambulatory CNM, SPOUT POSITIONER NIKKI RUTH Facility:[id number] Start: 11-25-2022 ambulatory MICHELE [facility] Facility:[id number] Start: 11-25-2022 Patient encounter procedure No PCP None [facility] Work Phone: Start: 10-29-2022 End: 11-02-2022 ambulatory [facility] Start: 10-29-2022 End: 11-02-2022 Encounter for general adult medical examination without abnormal findings [facility] Start: 03-13-2022 Chart Update No PCP None [facility] Work Phone: Start: 03-11-2022 Office outpatient ne w 30 minutes No PCP None [facility] Work Phone: Start: 03-11-2022 ambulatory Ms. Jackie Barriga Facility:[id number] Start: 09-24-2021 Refill Katrin washburn SPOUT POSITIONER Work Phone: [facility] Comment on above: Anxiety with depress ion Start: 07-24-2021 End: 07-24-2021 Office outpatient visit 15 minutes Katrin Pearson SPOUT POSITIONER Work Phone: [facility] Comment on above: Anxiety with depress ion (Primary Dx); Wellness examination; Bug bite, initial encounter Start: 07-24-2021 End: 07-24-2021 Patient encounter status Katrin Pearson SPOUT POSITIONER Work Phone: [facility] Start: 12-15-2020 Office outpatient vi sit 10 minutes No PCP None [facility] [address] Work Phone: Start: 07-12-2020 Patient encounter procedure Carole Columbia [facility] [address] Work Phone: Start: 07-06-2020 Patient encounter procedure Carole Columbia [facility] [address] Work Phone: Start: 06-23-2020 Patient encounter procedure Carole Columbia [facility] [address] Work Phone: Start: 05-26-2020 Patient encounter procedure Carole Columbia [facility] [address] Work Phone: Start: 04-26-2020 Patient encounter procedure Carole Naif [facility] [address] Work Phone: Start: 03-29-2020 Patient encounter procedure Carole Columbia DO [facility] [address] Work Phone: Start: 03-01-2020 Patient encounter procedure Carole Naif DO [facility] [address] Work Phone: Start: 01-10-2020 End: 01-10-2020 Patient encounter procedure Katrin Pearson Work Phone: [facility] Comment on above: Skin tag (Primary Dx ) Start: 06-17-2019 End: 06-17-2019 Periodic preventive med est patient 18-39 yrs Katrin MBert Lili Work Phone: [facility] Comment on above: Routine gynecologica l examination (Primary Dx); control counseling Start: 05-17-2019 End: 05-17-2019 Initial preventive medicine new pt age 18-39yrs Katrintre Pearson Work Phone: [facility] Comment on above: Wellness examination (Primary Dx); Anxiety with depression Start: 05-17-2019 Patient encounter status Yosef Pearson [facility] Work Phone: [facility] Start: 01-19-2018 Ambulatory Nelly Kartik Facility:[facility] Start: 01-09-2018 End: 01-11-2018 Evaluation and management of inpatient Nodr No Doctor Assigned Facility:[facility] Start: 01-01-2018 End: 01-02-2018 Ambulatory Nelly Kartik Facility:[facility] Start: 12-25-2017 End: 12-26-2017 Ambulatory Nelly Kartik Facility:[facility] Start: 12-18-2017 End: 12-19-2017 Ambulatory Nelly Kartik Facility:[facility] Start: 12-12-2017 End: 12-13-2017 Ambulatory Nelly Kartik Facility:[facility] Start: 12-12-2017 End: 12-13-2017 Ambulatory Nelly Akrtik Facility:[facility] Start: 11-28-2017 End: 11-29-2017 Ambulatory Nelly Kartik Facility:[facility] Start: 11-14-2017 End: 11-15-2017 Ambulatory Nelly Kartik Facility:[facility] Start: 10-31-2017 End: 11-01-2017 Ambulatory Nelly Kartik Facility:[facility] Start: 10-16-2017 End: 10-17-2017 Ambulatory Nelly Kartik Facility:[facility] Start: 09-30-2017 End: 10-01-2017 Ambulatory Nelly Kartik Facility:[facility] Start: 09-19-2017 End: 09-20-2017 Ambulatory Nelly Kartik Facility:[facility] Start: 08-22-2017 End: 08-23-2017 Ambulatory Nelly Kartik Facility:[facility] Start: 08-22-2017 End: 08-23-2017 Ambulatory Nelly Kartik Facility:[facility] Start: 07-25-2017 End: 07-26-2017 [facility] Start: 06-27-2017 End: 06-28-2017 Ambulatory Nelly Kartik Facility:[facility] Start: 05-30-2017 End: 05-31-2017 Ambulatory Nelly Kartik Facility:[facility] Start: 05-28-2017 End: 05-29-2017 Ambulatory Nelly Kartik Facility:[facility] Patient encounter procedure Carole Columbia [address] Work Phone: Comment on above: 06/2019-NEGATIVE -NEGATIVE; Procedures Date Procedure Procedure Detail Performing Clinician Start: 01-26-2025 X-ray of lumbosacral spine Dr. Olinda Berrios MD Work Phone: Start: 12-15-2024 Serologic test for syphilis Dr. Helga Min MD Work Phone: Start: 12-10-2024 SARS-CoV-2, Influenz a & RSV (PCR) Dr. Helga Min MD Work Phone: Start: 12-08-2024 US scan of thyroid Dr. Helga Min MD Work Phone: Start: 12-01-2024 Liquid based cervica l cytology screening Dr. Olinda Berrios MD Work Phone: Start: 12-01-2024 Vitamin D, 25-hydrox y measurement Dr. Helga Min MD Work Phone: Comment on above: Vitamin D StatusDefi ciency: <20 ng/mL (50nmol/L)Insufficiency: 20-30 ng/mL (50-75 nmol/L)Sufficiency: 30-100 ng/mL (75-250 nmol/L)Toxicity: >100 ng/mL (>250 nmol/L) Start: 10-15-[address] Helga Min MD Work Phone: Start: 10-11-2024 Serum inorganic phos phate measurement Dr. Helga Min MD Work Phone: Start: 10-11-2024 Urnls dip stick/tabl et reagent auto microscopy Dr. Helga Min MD Work Phone: Start: 09-27-2024 SARS-CoV-2, Influenz a & RSV (PCR) Dr. Helga Min MD Work Phone: Start: 09-06-[address] Melody Min MD Work Phone: Start: 2024 SARS-CoV-2, Influenz a & RSV (PCR) Dr. Helga Min MD Work Phone: Start: 08-17-2024 SARS-CoV-2, Influenz a & RSV (PCR) Dr. Helga Mni MD Work Phone: Start: 09-18-2023 Iadna ken [...] Start: 06-23-2020 Glucose post glucose dose Carole Columbia Start: 06-06-2020 MAC Imaging Order Carole Columbia Start: 06-17-2019 Microscopic observat ion [Identifier] in Cervix by Cyto stain Katrin Spring Start: 05-17-2019 Adult depression scr eening assessment [facility] History of No histor y of surgery Carole Naif DO Insertion of intraut erine contraceptive device No PCP None Comment on above: 11/28/2020: Micheal; Plan of Treatment Date Care Activity Detail Author Start: 2042 Zoster Vaccines (1 o f 2) Zoster Vaccines (1 of 2) [facility] Start: 07-21-2030 DTaP/Tdap/Td Vaccine s (5 - Td or Tdap) DTaP/Tdap/Td Vaccines (5 - Td or Tdap) [facility] Start: 07-21-2030 Tetanus vaccination Tetanus: Every 1 0yrs [facility] Start: 06-17-2028 Screening for malign ant neoplasm of cervix [facility] Start: 06-17-2026 Screening for malign ant neoplasm of cervix [facility] Start: 12-15-2024 Serologic test for syphilis [facility] Start: 12-15-2024 Herpes simplex virus identified in Unspecified specimen by Organism specific culture [facility] Start: 12-01-2024 Liquid based cervica l cytology screening [facility] Start: 10-15-2024 Exc b9 lesion mrgn x cp sk tg s/n/h/f/g 3.1-4.0cm EXC H-F-NK-SP B9+STEPHY 3.1-4 [facility] Start: 10-15-2024 Patient discharge [facility] Start: 06-21-2024 End: 06-21-2024 Patient encounter procedure 06/21/2024 11:15 AM EST Office Visit [facility] [address] [place] [address] Nikki Stevens MD [address] [facility], [facility] [address] [id number] [facility] Start: 06-17-2024 History and physical examination, annual for health maintenance Wellness Visit [facility] Start: 05-06-2024 End: 05-06-2024 Patient encounter procedure 05/06/2024 3:00 PM EDT Office Visit [facility] [address] [place] [address] Silvano Grace MD [address] [address] [facility] Start: 05-01-2024 Depression screening using PHQ-9 (Patient Health Questionnaire 9) score [facility] Start: 05-01-2024 History and physical examination, annual for health maintenance Wellness Visit [facility] Start: 03-14-2024 Influenza vaccination [facility] Start: 03-01-2024 End: 03-01-2024 Clinical Support 03/01/2024 3:00 PM EDT Clinical Support [facility] [address] [place] [address] [facility] Start: 10-31-2023 End: 10-31-2023 Clinical Support 10/31/2023 3:00 PM EDT Clinical Support [facility] [address] [place] [address] [facility] Start: 10-20-2023 End: 10-20-2023 Patient encounter procedure 10/20/2023 11:40 AM EDT Office Visit [facility] [address] [place] [address] Silvano Grace MD [address] [address] [facility] Start: 06-17-2023 End: 06-17-2024 Cytology Cervical or vaginal smear or scraping study THINPREP PAP TEST Pathology and Cytology Routine Cervical cancer screening Expected: 06/17/2023, Expires: 06/17/2024 [facility] Service Area Work Phone: Comment on above: Expected: 06/17/2023 , Expires: 06/17/2024 Start: 03-14-2023 COVID-19 Vaccine () COVID-19 Vaccine () [facility] Start: 03-14-2023 Influenza vaccination [facility] Start: 2022 Screening for malign ant neoplasm of cervix HPV/Cotest [facility] Start: 12-05-2022 Screening for malign ant neoplasm of cervix Pap Smear [facility] Start: 04-08-2022 FUV, Provider: Jackie Barriga, Status: Pen, Time: 2:30 PM FUV, Provider: Jackie Barriga, Status: Pen, Time: 2:30 PM [facility] [address] Work Phone: Start: 01-10-2022 Influenza vaccination Sequenti al Influenza Vaccine (#1) [facility] Comment on above: Postponed from 03/14 (Patient Refused) Start: 09-10-2021 COVID-19 Vaccine (3 - Booster for Pfizer series) COVID-19 Vaccine (3 - Booster for Pfizer series) [facility] Start: 08-23-2021 End: 08-23-2021 Patient encounter procedure 08/23/2021 Office Visit Primary Care Lili, Katrin Hernandez, SPOUT POSITIONER [address] [place] [address] [facility] Start: 06-07-2021 COVID-19 Vaccine (3 - Pfizer series) COVID-19 Vaccine (3 - Pfizer series) [facility] Start: 06-17-2020 History and physical examination, annual for health maintenance Wellness Visit [facility] Start: 05-17-2020 Depression screening using PHQ-9 (Patient Health Questionnaire 9) score DEPRESSION SCREENING (PHQ9) [facility] Start: 05-17-2020 History and physical examination, annual for health maintenance Wellness Visit [facility] Start: 03-29-2020 Antibody hiv-1 HIV Antigen/An tibody Screen [employer] Work Phone: Start: 03-29-2020 Antibody rubella Rubella IgG Antibod y [employer] Work Phone: Start: 03-29-2020 Hemoglobin Identification Hemoglobin Identification [employer] Work Phone: Start: 03-29-2020 Hepatitis c antibody Hepatitis C Antibody Test [employer] Work Phone: Start: 03-29-2020 Iaad ia hepatitis b surface antigen Hepatitis B Surface Antigen [employer] Work Phone: Start: 03-29-2020 Iadna chlamydia trachomatis amplified probe tq GC + Chlamydia By Amplified Detection [facility] [employer] Phone: Start: 03-29-2020 SYPHILIS SCREENING W ITH REFLEX SYPHILIS SCREENING WITH REFLEX [email or web address] [employer] Phone: Start: 03-29-2020 Type and Screen Type and Screen [facility] [employer] Work Phone: Start: 03-17-2020 Depression Remission Assessment (PHQ9) Depression Remission Assessment (PHQ9) [facility] Start: 03-14-2020 Influenza vaccinatio n given Sequential Influenza Vaccine (Season Ended) [facility] Start: 01-11-2020 Influenza vaccinatio n given SEQUENTIAL INFLUENZA VACCINE (#1) [facility] Comment on above: Postponed from 03/14 (Patient Refused) Start: 08-17-2019 End: 08-17-2019 Office Visit [facility] Start: 02-08-2018 Varicella vaccination Varicell a Vaccines (1 of 2 - 2-dose childhood series) [facility] Start: 2013 Screening for malign ant neoplasm of cervix [facility] Start: 2010 Hepatitis C screening Hepatitis C Sc reening [facility] Start: 2007 HIV screening HIV Screening [facility] Start: 03-31-1996 Hepatitis B Vaccines (2 of 3 - 3-dose series) Hepatitis B Vaccines (2 of 3 - 3-dose series) [facility] Start: 1995 History and physical examination, annual for health maintenance Wellness Visit [facility] Start: 1992 Lipid panel Lipid Panel [facility] Start: 1992 Screening for malign ant neoplasm of cervix PAP SMEAR [facility] Start: 1992 Tetanus vaccination [facility] Start: 1992 Yearly Adult Physical Yearly Adult P hysical [facility] End: 09-17-2024 Chlamydia trachomatis rRNA assay Chlamydia/GC/Trichomona s Amplified RNA Microbiology Routine Vaginal discharge Dyspareunia in female 1 Occurrences starting 09/18/2023 until 09/17/2024 [facility] Work Phone: Comment on above: 1 Occurrences starti ng 09/18/2023 until 09/17/2024 Chlamydia trachomati s rRNA assay Chlamydia/GC/Trichomona s Amplified RNA Microbiology Routine Vaginal discharge Dyspareunia in female 09/18/2023 2:43 PM EST [facility] Cobalamin (Vitamin B 12) [Mass/volume] in Serum or Plasma [facility] Cytology report of Cervical or vaginal smear or scraping Cyto stain.thin prep [facility] End: 09-17-2024 Gardnerella vaginalis rRNA assay Vaginitis DNA Probes Microbiology Routine Vaginal discharge 1 Occurrences starting 09/18/2023 until 09/17/2024 [facility] Comment on above: 1 Occurrences starti ng 09/18/2023 until 09/17/2024 Gardnerella vaginali s rRNA assay Vaginitis DNA Probes Microbiology Routine Vaginal discharge 09/18/2023 2:43 PM EST [facility] Glucose [Mass/volume ] in Serum or Plasma [facility] End: 09-17-2024 Hepatitis B surface antibody measurement Hepatitis B Surface antibody Lab Routine Pre-employment examination 1 Occurrences starting 09/18/2023 until 09/17/2024 [facility] Comment on above: 1 Occurrences starti ng 09/18/2023 until 09/17/2024 Hepatitis B surface antibody measurement Hepatitis B Surface antibody Lab Routine Pre-employment examination 09/18/2023 2:49 PM EST [facility] End: 09-17-2024 Hepatitis B surface antigen measurement Hepatitis B Surface Antigen Lab Routine Pre-employment examination 1 Occurrences starting 09/18/2023 until 09/17/2024 [facility] Comment on above: 1 Occurrences starti ng 09/18/2023 until 09/17/2024 Hepatitis B surface antigen measurement Hepatitis B Surface Antigen Lab Routine Pre-employment examination 09/18/2023 2:49 PM EST [facility] Herpes simplex virus identified in Unspecified specimen by Organism specific culture [facility] Herpes simplex virus identified in Unspecified specimen by Organism specific culture [facility] Lipid 1996 panel - Serum or Plasma [facility] Liquid based cervica l cytology screening [facility] End: 09-17-2024 Measurement of Measles virus antibody Rubeola Antibody, IgG Lab Routine Pre-employment examination 1 Occurrences starting 09/18/2023 until 09/17/2024 [facility] Comment on above: 1 Occurrences starti ng 09/18/2023 until 09/17/2024 Measurement of Measl es virus antibody Rubeola Antibody, IgG Lab Routine Pre-employment examination 09/18/2023 2:49 PM EST [facility] Microscopic examinat ion of vaginal Papanicolaou smear Thinprep Pap Smear Pathology and Cytology Routine Routine gynecological examination Ordered: 06/17/2019 [facility] Comment on above: Ordered: 06/17/2019 End: 09-17-2024 MTB SCREEN MTB SCREEN Lab Routine Pre-employment examination 1 Occurrences starting 09/18/2023 until 09/17/2024 [facility] Comment on above: 1 Occurrences starti ng 09/18/2023 until 09/17/2024 MTB SCREEN MTB SCREEN Lab R outine Pre-employment examination 09/18/2023 2:49 PM EST [facility] End: 09-17-2024 Mumps IgG level Mumps Antibody, IgG Lab Routine Pre-employment examination 1 Occurrences starting 09/18/2023 until 09/17/2024 [facility] Comment on above: 1 Occurrences starti ng 09/18/2023 until 09/17/2024 Mumps IgG level Mumps Antibody, IgG Lab Routine Pre-employment examination 09/18/2023 2:49 PM EST [facility] Neisseria gonorrhoea e nucleic acid detection Chlamydia/Gonorrhoeae Amplified RNA Microbiology Routine Vaginal discharge Dyspareunia in female 09/18/2023 2:43 PM EST [facility] Path report.final Dx Spec [facility] Patient referral [facility] Work Phone: T4 free measurement [facility] Thyroid stimulating hormone measurement [facility] Trichomonas vaginali s Amplified RNA Trichomonas vaginalis Amplified RNA Microbiology Routine Vaginal discharge Dyspareunia in female 09/18/2023 2:43 PM EST [facility] US Thyroid gland [facility] Vitamin D, 25-hydrox y measurement [facility] NEGATED: Highlighted row has been ruled out! Planned Goals not documented [facility] Work Phone: Immunizations Immunization Date Immunization Notes Care Provider Major muller 05-24-2024 influenza, injectabl e, madin yris canine kidney, preservative free Dr. Helga Min MD Work Phone: [facility] 05-24-2024 Influenza, injectabl e, Madin Yris Canine Kidney, preservative free, quadrivalent Dr. Helga Min MD Work Phone: [facility] 10-31-2023 hepatitis B vaccine, adult dosage Jackienereida Ortegajeana LEAD TECHNICAL WRITER [facility] 10-31-2023 hepatitis B vaccine, unspecified formulation Kam Mayberry MD Work Phone: [facility] 09-26-2023 hepatitis B vaccine, adult dosage Jackie Chenfett LEAD TECHNICAL WRITER [facility] 09-26-2023 hepatitis B vaccine, unspecified formulation Jackienereida Chenfett LEAD TECHNICAL WRITER [facility] 04-12-2021 Pfizer SARS-CoV-2 Vaccination Katrin Oregon SPOUT POSITIONER Work Phone: [facility] 03-22-2021 Pfizer SARS-CoV-2 Vaccination Katrin [place] SPOUT POSITIONER Work Phone: [facility] 07-21-2020 influenza, injectabl e, quadrivalent, preservative free Katrin [place] SPOUT POSITIONER Work Phone: [facility] 07-21-2020 tetanus toxoid, reduced diphtheria toxoid, and acellular pertussis vaccine, adsorbed Katrin [place] SPOUT POSITIONER Work Phone: [facility] 07-21-2020 influenza virus vaccine, unspecified formulation Nikki Stevens MD Work Phone: [facility] Work Phone: 01-11-2018 measles, mumps and rubella virus vaccine Katrin [facility] Work Phone: [facility] 03-03-1996 diphtheria, tetanus toxoids and acellular pertussis vaccine Dr. Helga Min MD Work Phone: [facility] 03-03-1996 diphtheria, tetanus toxoids and acellular pertussis vaccine, unspecified formulation Katrin [place] SPOUT POSITIONER Work Phone: [facility] 03-03-1996 hepatitis B vaccine, pediatric or pediatric/adolescent dosage Katrin [place] SPOUT POSITIONER Work Phone: [facility] 03-03-1996 trivalent poliovirus vaccine, live, oral [facility] SPOUT POSITIONER Work Phone: [facility] 11-04-1994 DTP-Haemophilus influenzae type b conjugate vaccine [facility] Work Phone: [facility] 11-04-1994 measles, mumps and rubella virus vaccine [facility] Work Phone: [facility] 11-04-1994 trivalent poliovirus vaccine, live, oral [facility] Work Phone: [facility] 07-04-1993 diphtheria, tetanus toxoids and acellular pertussis vaccine Dr. Helga Min MD Work Phone: [facility] 07-04-1993 diphtheria, tetanus toxoids and pertussis vaccine [facility] Work Phone: [facility] 07-04-1993 haemophilus influenz ae type b vaccine, conjugate unspecified formulation [facility] Work Phone: [facility] 07-04-1993 haemophilus influenz ae type b vaccine, PRP-T conjugate Dr. Helga Min MD Work Phone: [facility] 07-04-1993 trivalent poliovirus vaccine, live, oral [facility] Work Phone: [facility] Payers Date Payer Category Payer Self-pay 2024 Unknown [id number] 2023 Private Health Insurance [id number] 2017 Medicaid [id number] 2017 Medicaid [employer] [facility] [id number] 2017-Present [phone] [address] [address] [place] [address] [id number] 2017 Unknown [id number] 2017 Unknown 2017 Private Health Insurance 1992 Unknown [id number] 2.16.840.1.861190.3.579.2.3 56 1992 Unknown [id number] 2.16.840.1.354128.3.579.2.3 56 1992 Unknown [id number] 2.16.840.1.593251.3.579.2.3 56 1992 Unknown [id number] 2.16.840.1.264006.3.579.2.3 56 1992 Unknown [id number] 2.16.840.1.306665.3.579.2.1 244 1992 Unknown [id number] 2.16.840.1.103697.3.579.2.9 03 1992 Unknown [id number] 2.16840.1.856154.3.579.2.9 03 1992 Unknown [id number] 2.840.1.954710.3.579.2.1 243 1992 Unknown [id number] 2.16840.1.892816.3.579.2.1 243 1992 Unknown [id number] 2.16840.1.172040.3.579.2.9 03 1992 Unknown [id number] 2.16840.1.601092.3.579.2.9 03 1992 Unknown [id number] 2.840.1.705050.3.579.2.9 03 1992 Unknown [id number] 2.16840.1.774680.3.579.2.9 03 1992 Unknown [id number] 2.16840.1.571235.3.579.2.4 79 Private Health Insurance [id number] Unknown [id number] 2.16840.1.531204.3.579.2.4 62 Unknown [id number] 2.840.1.596762.3.579.2.4 62 Unknown [id number] 2.16.840.1.487107.3.579.2.4 62 Unknown [id number] 2.16.840.1.085453.3.579.2.4 62 Unknown [id number] 2.16.840.1.694191.3.579.2.4 62 Unknown [id number] 2.16.840.1.346926.3.579.2.4 62 Unknown [id number] 2.16.840.1.096153.3.579.2.4 62 Unknown [id number] 2.16.840.1.685831.3.579.2.4 62 Unknown [id number] 2.16.840.1.386566.3.579.2.4 62 Unknown [id number] 2.16.840.1.815832.3.579.2.4 62 Unknown [id number] 2.16.840.1.555696.3.579.2.4 62 Unknown [id number] 2.16.840.1.022069.3.579.2.4 62 Unknown [id number] 2.16.840.1.843508.3.579.2.4 62 Unknown [id number] 2.16.840.1.655438.3.579.2.4 62 Unknown [id number] 2.16.840.1.019961.3.579.2.4 62 Unknown [id number] 2.16.840.1.659117.3.579.2.4 62 Unknown [id number] 2.16.840.1.022467.3.579.2.4 62 Unknown [id number] 2.16.840.1.703764.3.579.2.4 62 Unknown [id number] 2.16.840.1.373484.3.579.2.4 62 Unknown [id number] 2.16.840.1.054979.3.579.2.4 62 Unknown [id number] 2.16.840.1.934475.3.579.2.4 62 Unknown [id number] 2.16.840.1.223515.3.579.2.4 62 Unknown [id number] 2.16.840.1.337277.3.579.2.4 62 Unknown [id number] 2.16.840.1.667239.3.579.2.4 62 Unknown [id number] 2.16.840.1.788809.3.579.2.4 62 Unknown [id number] 2.16.840.1.088860.3.579.2.4 62 Unknown [id number] 2.16.840.1.695338.3.579.2.4 62 Unknown [id number] 2.16.840.1.620886.3.579.2.4 62 Unknown [id number] 2.16.840.1.845692.3.579.2.4 62 Unknown [id number] 2.16.840.1.645623.3.579.2.4 62 Unknown [id number] 2.16.840.1.464032.3.579.2.4 62 Unknown [id number] 2.16.840.1.581371.3.579.2.4 62 Unknown [id number] 2.16.840.1.992736.3.579.2.4 62 Unknown [id number] 2.16.840.1.620406.3.579.2.4 62 Unknown [id number] 2.16.840.1.010325.3.579.2.4 62 Unknown [id number] 2.16.840.1.831422.3.579.2.4 62 Unknown [id number] 2.16.840.1.905736.3.579.2.4 62 Unknown [id number] 2.16.840.1.007378.3.579.2.4 62 Unknown [id number] 2.16.840.1.340921.3.579.2.4 62 Unknown [id number] 2.16.840.1.359730.3.579.2.4 62 Unknown [id number] 2.16.840.1.070068.3.579.2.4 62 Unknown [id number] 2.16.840.1.156895.3.579.2.4 62 Unknown [id number] 2.16.840.1.256513.3.579.2.4 62 Unknown [id number] 2.16.840.1.033795.3.579.2.4 62 Social History Date Type Detail Facility Start: 06-17-2019 End: 12-15-2024 Tobacco smoking status NHIS Never smoker [facility] Start: 06-17-2019 End: 10-20-2023 Alcohol intake Ex-drinker (finding) [facility] Start: 05-17-2019 End: 01-06-2020 History SDOH Alcohol Frequency 1 [facility] Start: 05-17-2019 History SDOH Social Connections Get Together 2 [facility] Start: 05-07-[address] [facility] Start: 1990 Sex Assigned At Not on file [facility] Start: 06-07-2023 End: 06-17-2023 Exposure to SARS-CoV-2 (event) Not sure [facility] Start: 05-01-2023 End: 10-20-2023 No alcohol use No alcohol use [facility] Start: 05-07-2019 End: 10-29-2022 Tobacco use and exposure Smokeless tobacco non-user [facility] Start: 05-01-2023 End: 10-20-2023 Social connection and isolation panel [facility] Frequency of Communication with Friends and Family Not on file [facility] How often to you hav e a drink containing alcohol? Never [facility] (I/We) worried wheth er (my/our) food would run out before (I/we) got money to buy more. Never true [facility] Start: 10-29-[address] [facility] Start: 05-11-2019 Gender identity Identifies as female gender (finding) [facility] Start: 05-11-2019 Sexual orientation Heterosexual (fin ding) [facility] Start: 06-17-2023 Alcohol intake Lifetime non-d giovanni (finding) [facility] Work Phone: Start: 10-15-2024 Sex Female (finding) [facility] Start: 1990 Sex Assigned At Female [facility] NEGATED: Highlighted row - - [place] [address] [place] Work Phone: Goals Date Patient Goal Desired [...] status health issues are not documented Disease [place] [address] [place] Work Phone: Mental Status Date Assessment Result Facility 10-15-2024 Cognitive function Voice/Name [facility] Work Phone: NEGATED: Highlighted row Cognitive function [Interpretation] Cognitive status health issues are not documented Disease [place] [address] [place] Work Phone: Clinical Notes 12-14-2020 to 01-26-2025 Note Date & Type Note Facility 01-26-2025 Radiology Diagnostic study note [facility] Services [address] [place], [place] [address] L/S Spine Min 4 Views MR#: [id number] Acct: [id number] Name: STEFANIA NICOLE Rep #: [id number] : 1990 F 34 From: Margie Cordova MD PCP: Dr. Helga Min MD Status: REG CLI Study:L/S Spine Min 4 Views Date of Exam: 01/26/25 Exam# [id number] Ordering Dr: Curtis Crawford EXAM: XR Cervical [...] fracture or significant dynamic instability. Reading [facility] CC: SARAH Smith; Dr. Helga Min MD ~ Marketing Developer: Signed [facility] 12-15-2024 Evaluation note Diagnosis Onset Date Resolution Inclusion cyst acute December 15, 2024 1:55pm Possible exposure to STI acute December 15, 2024 1 :55pm [facility] Work Phone: 1(453) 950-563506-04-2025 Progress [facility] [address], [address] [place] [address] OFFICE VISIT Date of Service: 12/15/24 MR#: [id number] Acct: [id number] Name: STEFANIA NICOLE Rep #: [id number] : 1990 Provider: NEELAM Santizo Age/Sex: 34/F Location: [facility] Status: Signed Intake Vital Signs 12/01/24 08:28 12/15/24 14:00 12/15/24 14:04 Height 5 ft 2 in 5 ft 2 in 5 ft 2 in Weight: 145 lb BMI 26.5 BP 127/85 H Intake Visit Reasons: genital lesion Data Administrator Required: No Is patient in pain?: No [...] : No Control Method: [facility] Medical History GERD (gastroesophageal reflux disease) Frequent [...] 2 current occupational status: employed 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 sexually active: Yes Smoking Status: Never [...] Encounter for screening for infections with apredominantly sexualmode of transmission HSV Culture Screen Today Z11.3 - Encounter for screening for infections with a predominantly sexualmode of transmission 12/15/24 1432 n MATERIAL HANDLER FLOORPERSON-C> Date _ Margaret Santizo MATERIAL HANDLER FLOORPERSON-C Cosigner Signature: Date (if applicable) CC: ~ [facility]06-04-2025 Progress note Author Margaret Santizo [facility] Note Date/Time December 15, 2024 2:32p m [facility] [address] [place] [address], [address] [place] [address] OFFICE VISIT Date of Service: 12/15/24 MR#: [id number] Acct: [id number] Name: STEFANIA NICOLE Rep #: [id number] : 1990 Provider: NEELAM Santizo Age/Sex: 34/F Location: [facility] Status: Signed Intake Vital Signs 12/01/24 08:28 12/15/24 14:00 12/15/24 14:04 Height 5 ft 2 in 5 ft 2 in 5 ft 2 in Weight: 145 lb BMI 26.5 BP 127/85 H Intake Visit Reasons: genital lesion Data Administrator Required: No Is patient in pain?: No [...] : No Control Method: [facility]- [facility] Medical History GERD (gastroesophageal reflux disease) Frequent [...] 2 current occupational status: employed 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 Helga Min MD Status: REG CLI Study:Thyroid Date of Exam: 12/08/24 Exam# [id number] Ordering Dr: Imelda Galicia DO PROCEDURE: THYROID, [...] Paper of the ACR TI-RADS Committee, 2017 (https://[email or web address]/retrieve/[email or web address]) Reading Location: [id number] CC: Dr. Helga Min MD; DO Pk Fernandez Marketing Developer: Signed [facility]04-04-2025 Procedure note [facility] Medical Records Department [address] [place] [address] Operative Report 10/15/24 0952 MR#: [id number] Acct: [id number] Name: STEFANIA NICOLE Rep #:[id number] : 1990 34 From: lOinda Berrios MD PCP: Dr. 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 Helga Min MD; Dr. Olinda Berrios MD~ Signed [facility]04-04-2025 Discharge summary [facility] Medical Records Department [address] [place] [address] Instructions for Home/Discharge Instructions 10/15/24 0950 MR#: [id number] Acct: [id number] Name: STEFANIA NICOLE Rep #:[id number] : 1990 34 From: Olinda Berrios MD PCP: Dr. Helga Min MD Status:REG [facility] Discharge Instructions Dressing / Incision Additional Dressing/Incision [...] Attending Provider: Olinda Berrios Primary Care Provider: Helga Min Instructions Print Language: Grenadian Discharge Orders/Prescriptions Prescriptions: New sulfamethoxazole-trimethoprim [Bactrim] 400-80 [...] tabs/24 hr PO Referrals / Follow Up: Helga Min MD [Primary Care Provider] - Disposition Disposition (needs filled in before D/C Order can be placed): Home, Self Care 10/15/24 0952Olinda Berrios MD CC: Dr. Helga Min MD ~ Signed [facility]04-04-2025 History and physical note [facility] Medical Records Department [address] [place] [address] History & Physical Exam 10/15/24 0850 MR#: [id number] Acct: [id number] Name: STEFANIA NICOLE Rep #:[id number] : 1990 34 From: Olinda Berrios MD PCP: Dr. Helga Min MD Status:[facility] Location: [place] [address] History and Physical Date of Admission: 10/15/24 [...] 0852 Cosigner Signature (if applicable): CC: Dr. Helga Min MD; Dr. Olinda Berrios MD~ Signed [facility]04-04-2025 [facility] Medical Records Department [address] [place] [address] History Physical Exam 10/15/24 0850 MR#: [id number] Acct: [id number] Name: STEFANIA NICOLE Rep #: [id number] : 1990 34 From: Olinda Berrios MD PCP: Dr. Helga Min MD Status:[facility] Location: [place] [address] History and Physical Date of Admission: 10/15/24 [...] 0852 Cosigner Signature (if applicable): CC: Dr. Helga Min MD; Dr. Olinad Berrios MD [facility]04-02-2025 Evaluation note* Diagnosis Onset Date Resolution Status Admit Date Neoplasm of uncertain behavi or of skin acute October 13, 2024 1:30pm Neoplasm of uncertain behavi or of skin acute October 15, 2024 8:29am [facility] Work Phone: 1(425) 896-990804-02-2025 Evaluation note* Diagnosis Onset Date Resolution Status Admit Date Neoplasm of uncertain behavi or of skin acute October 13, 2024 1:30pm Neoplasm of uncertain behavi or of skin acute October 15, 2024 8:29am Benign neoplasm of skin of scalp acu te October 26, 2024 2:14pm [facility] Work Phone: 1(417) 798-674104-02-2025 Evaluation note* Diagnosis Onset Date Resolution Status Admit Date Neoplasm of uncertain behavi or of skin acute October 13, 2024 1:30pm Neoplasm of uncertain behavi or of skin acute October 15, 2024 8:29am Benign neoplasm of skin of scalp acute October 26, 2024 2:14pm Encounter for routine gynecological examination noneactive December 012024 8:23am [facility] Work Phone: [phone] Evaluation note* Diagnosis Onset Date Resolution Status [...] routine gynecological examination noneactive December 012024 8:23am [facility] Work Phone: 1(907) 190-431704-02-2025 Evaluation note* Diagnosis Onset Date Resolution Status [...] to STI acute December 15, 2024 1:55pm [facility] Work Phone: [phone] Telephone encounter Note* Telephone Encounter - Jackie Hodge LPN - 02/09/2024 8:05 AM EDT Last OV 10/20/23. Next OV 03/01/24. [id number] Miscellaneous Notes* Telephone Encounter - Jackie Hodge LPN - 02/09/2024 8:05 AM EDT Last OV 10/20/23. Next OV 03/01/24. documented in this [id number] Telephone encounter Note* Telephone Encounter - Jackie Hodge LPN - 12/09/2023 8:35 AM EDT Last OV 10/20/23. Next OV 05/06/24. [id number] Miscellaneous Notes* Telephone Encounter - Jackie Hodge LPN - 12/09/2023 8:35 AM EDT Last OV 10/20/23. Next OV 05/06/24. documented in this [id number] History of Present illness Narrative* Jackie Hodge [...] and let her know. documented in this [id number] History of Present illness Narrative* Silvano Grace [...] and let her know. documented in this [id number] History of Present illness Narrative* Silvano Grace MD - 10/20/2023 10:53 AM EDT Chief Complaint Patient presents with Discuss Birthcontrol Options HPI: Stefania Nicole is a 33 y.o. female presenting today for an annual. Former patient of Katrin Spring. Patient is relatively healthy with previous history of mild depression and anxiety. Pulled IUD out and pain is better Pap smear next year follows up with women's care in [place]. She states it started about 10 days [...] Hepatitis C Screening Never done COVID-19 Vaccine () 03/14/2023 Assessment & Plan Problem List Items Addressed [...] No follow-ups on file. 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 She is up to date with tetanus until 2030. Hep b titer ordered. TB quantiferon ordered. Hep c and HIV patient will get records from her obgyn. Dr. Grace placed all orders. [id number] History of Present illness Narrative* [place] Stra[place]inda petersen - 09/18/2023 4:14 PM EST Subjective Patient [...] Exam Vitals reviewed. Exam conducted with a doweler present. Constitutional: Appearance: Normal appearance. Cardiovascular: Rate [...] Antigen SILVANO GRACE MD Family Medicine Physician [place] [phone] documented in this [id number] Miscellaneous Notes* Assessment & Plan Note - [...] performed by Dr. Grace. documented in this [id number] Evaluation + Plan note* Assessment & Plan Note - Jacinda Jones - 09/18/2023 4:11 PM ESTAssociated Problem(s): Dyspareunia in female LIZETT wet prep test performed. STD testing performed. Pelvic exam performed no cervical motion tenderness noted with bimanual exam. Speculum exam white, cured-like discharge noted on cervix. Prescribed clotrimazole 1% cream for one week. [id number] Evaluation + Plan note* Assessment & Plan Note - Jacinda Jones - 09/18/2023 3:07 PM ESTAssociated Problem(s): Vaginal discharge LIZETT wet prep test performed. Pelvic exam performed no cervical motion tenderness noted with bimanual exam. Speculum exam white, cured-like discharge noted on cervix. Prescribed drospirenone-ethinyl estradiol 0.03mg tablets and clotrimazole 1% cream for one week. Exam performed by Dr. Grace. [id number] History of Present illness Narrative* Nikki Stevens [...] or palpitations Gastrointestinal denies any abdominal pain ROUGH PLANER TENDER Per HPI Musculoskeletal denies any changes in [...] and follow-up in 1year documented in this [facility] Work Phone: 1([phone]) 122-565310-23-2023 History of Present illness Narrative* Mariel Chávez MA - 05/05/2023 6:49 AM EDT FAXED FOR RECORDS [facility] * Silvano Grace MD - 05/01/2023 3:19 PM EDT Chief Complaint Patient presents with Annual Exam Pt declines flu shot today. Gap Closure (Health Maintenance) HIV Screening Never done Hepatitis C Screening Never done Depression Screening (PHQ-2/9) due on 05/17/2020 Wellness Visit due on 06/17/2020 Pap Smear due on 06/17/2022 Sequential Influenza Vaccine(1) due on 03/14/2023 COVID-19 Vaccine(3 - season) due on 03/14/2023 HPI: Stefania Nicole [...] year follows up with women's care in [place]. Hemorrhoids: Fullness inside and one outside since [...] will be done through women's care in [place]. Refusing influenza and COVID shots. Low concern [...] 05/01/2024) for Annual Exam. SILVANO GRACE MD [facility] [address] [facility] [address] [facility] [phone] Dept: [phone] 05/17/2019 3:00 PM 05/01/2023 3:40 PM Depression [...] Not difficult at all documented in this [id number] Evaluation + Plan note* Assessment & Plan [...] Holding off on x-ray or RUQ ultrasound. [id number] Miscellaneous Notes* Assessment & Plan Note - [...] concerns * Assessment & Plan Note - Sivlano Grace MD - 05/02/2023 3:58 PM EDTAssociated Problem(s): Skin mole Continue to monitor, currently benign mole with no change in features with increased depth, size orhyperpigmentation. * Assessment & Plan Note - Silvano Grace MD - 05/02/2023 3:58 PM EDTAssociated Problem(s): Wellness examination Pap smear will be done through women's care in [place]. Refusing influenza and COVID shots. Low concern for HIV and hepatitis C at this time. No concern for early screening for breast cancer or colon cancer. documented in this [id number] Evaluation + Plan note* Assessment & Plan Note - Silvano Grace MD - 05/02/2023 3:58 PM EDTAssociated Problem(s): Hemorrhoid Stable no concerns [id number] Evaluation + Plan note* Assessment & Plan Note - Silvano Grace MD - 05/02/2023 3:58 PM EDTAssociated Problem(s): Skin mole Continue to monitor, currently benign mole with no change in features with increased depth, size orhyperpigmentation. [id number] Evaluation + Plan note* Assessment & Plan Note - Silvano Grace MD - 05/02/2023 3:58 PM EDTAssociated Problem(s): Wellness examination Pap smear will be done through women's care in [place]. Refusing influenza and COVID shots. Low concern for HIV and hepatitis C at this time. No concern for early screening for breast cancer or colon cancer. [id number] NoteDiagnoses/Problems Assessed General counseling and advice for [...] DAY Vitals Vital Signs Recorded: 20Feb2023 03:43PM Tusavbhw012 Lyeoxqepx10 Height5 ft 3 in Gjesuo705 lb 6 oz BMI Pfdmwbjiij43.57 kg/m2 BSA Calculated1.68 PDU25Eyy7420 Physical Exam Constitutional: Alert and in no acute distress. Well developed, well nourished Pulmonary: No respiratory distress Psychiatric: alert and oriented x 3., affect normal to patient baseline, mood: appropriate and judgment and insight: intact Signatures Electronically signed by : Nikki Ruth APRN-MARIO LAU-SPOUT POSITIONER; Feb 20 2023 4:11PM EST (Author)[facility] [id number] History of Present illness NarrativePatient is here [...] is not utilizingTylenol which does seem to help.-[facility] Work Phone: 1(282) 974-176003-14-2022 Telephone encounter Note* Telephone Encounter - Salty Brown LPN - 09/24/2021 1:44 PM EDT Attempted to call pt. No answer. Message left informing pt of Zoloft refills. Advised pt to call the office at [phone] with any questions or concerns. [id number] Miscellaneous Notes* Telephone Encounter - Salty Brown LPN - 09/24/2021 1:44 PM EDT Attempted to call pt. No answer. Message left informing pt of Zoloft refills. Advised pt to call the office at [phone] with any questions or concerns. documented in this [id number] History of Present illness Narrative* Jacinda Greco MA - 08/27/2021 12:31 PM EST Mailed ANUSHA to Stefania asking her to merle out and mail back Our last ANUSHA was dated 05/01 [facility] will not release records until they have updated ANUSHA. Trying to get records and labs from Dr. Mancuso. * Jacinda Greco MA - 07/24/2021 4:16 PM EST Faxed ANUSHA to [facility] and for labs. (08/13/[address] Mancuso office for records [phone]. * Katrin Pearson CNP - 07/24/2021 3:29 [...] medications. Katrin Pearson CNP documented in this [id number] Miscellaneous Notes* Assessment & Plan Note - [...] cause anxiety and depression. documented in this [id number] Miscellaneous Notes* Assessment & Plan Note - [...] cause anxiety and depression. documented in this [id number] History of Present illness Narrative* Jacinda Greco MA - 07/24/2021 4:16 PM EST Faxed ANUSHA to Susan Osorio and for labs. (08/13/[address] Mancuso office for records [phone]. * Katrin Pearson CNP - 07/24/2021 3:29 [...] medications. Katrin Pearson CNP documented in this [id number] Instructions* Patient Instructions* Katrin Pearson CNP - [...] look into their status. Customer Service/Billing Questions: [phone] [facility] Assistance: [phone] or [phone] Financial Assistance: [phone] or [phone] documented in this [id number] Instructions* Patient Instructions* Katrin Pearson CNP - [...] look into their status. Customer Service/Billing Questions: [phone] [facility] Assistance: [phone] or [phone] Financial Assistance: [phone] or [phone] documented in this [id number] History of Present illness Izniecgxp62-zrxk-xzz presents for IUD follow-up. Patient notes a little bit heavier bleeding last day or 2. Patient was ever since placement she felt the strings were too long they poked her GI to talk to himand sometimes. Patient notes minimal no cramps. Patient has not had intimacy.[email or web address] Phone: discharge summary Author Olinda Berrios [facility] Note Date/Time October 15, 2024 9:52 am [facility] Medical Records Department [address] [place] [address] Instructions for Home/Discharge Instructions 10/15/24 0950 MR#: [id number] Acct: [id number] Name: STEFANIA NICOLE Rep #:[id number] : 1990 34 From: Olinda Berrios MD PCP: Dr. Helga Min MD Status:[facility] Discharge Instructions Dressing / Incision Additional Dressing/Incision [...] Up Care Please Follow Up With: Olinda Brerios MD When: 1 to 2 weeks Test Results: Test results from this visit will be discussed in further detail at your follow- up appointment, if applicable. Discharge Plan Admission Attending Provider: Olinda Berrios Primary Care Provider: Helga Min Instructions Print Language: Grenadian Discharge Orders/Prescriptions Prescriptions: New sulfamethoxazole-trimethoprim [Bactrim] 400-80 [...] tabs/24 hr PO Referrals / Follow Up: Helga Min MD [Primary Care Provider] - Disposition Disposition (needs filled in before D/C Order can be placed): Home, Self Care 10/15/24 0952<Electronically signed by Olinda Berrios MD>Olinda Berrios MD CC: Dr. Helga Min MD ~ Signed [facility] Work Phone: Evaluation note* Diagnosis Anxiety with [...] of contraceptive pills documented in this encounter [facility] Work Phone: Evaluation note* Diagnosis Vaginal discharge- [...] [facility] Author Olinda Berrios [facility] Note Date/Time October 15, 2024 8:52 am [facility] Medical Records Department [address] [place] [address] History & Physical Exam 10/15/24 0850 MR#: [id number] Acct: [id number] Name: STEFANIA NICOLE Rep #:[id number] : 1990 34 From: Olinda Berrios MD PCP: Dr. Helga Min MD Status:[facility] Location: [place] [address] History and Physical Date of Admission: 10/15/24 [...] MD> Cosigner Signature (if applicable): CC: Dr. Helga Min MD; Dr. Olinda Berrios MD~ Signed [facility] Work Phone: History of Present illness Narrative* Ms. Schafer is a 32-year-old female seen by self-referral for evaluation of hemorrhoids. * She has never had a colonoscopy. She has no family history of colon or rectal cancer. 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 She states she is exhausted. [place] decision to wait to start medications and [...] E-ORDER November 18, 2024 10:22a m Annual (ROUGH PLANER TENDER) December 01, 2024 8:23a m Reason for [...] E-ORDER November 18, 2024 10:22a m Annual (ROUGH PLANER TENDER) December 01, 2024 8:23a m LABS December [...] E-ORDER November 18, 2024 10:22a m Annual (ROUGH PLANER TENDER) December 01, 2024 8:23a m LABS December [...] E-ORDER November 18, 2024 10:22a m Annual (ROUGH PLANER TENDER) December 01, 2024 8:23a m LABS December 01, 2024 8:57a m ENLARGED THYROID December 08, 2024 2:57p m genital lesion December 15, 2024 1:55p m Reason for Visit Admit Date Neoplasm of uncertain behavior of skin A pril 2024 1:30pm Neoplasm of uncertain behavior of skin A l 2024 8:29am Benign neoplasm of skin of [...] E-ORDER November 18, 2024 10:22a m Annual (ROUGH PLANER TENDER) December 01, 2024 8:23a m LABS December [...] E-ORDER November 18, 2024 10:22a m Annual (ROUGH PLANER TENDER) December 01, 2024 8:23a m LABS December 01, 2024 8:57a m ENLARGED THYROID December 08, 2024 2:57p m genital lesion December 15, 2024 1:55p m LABS February 03, 2025 10:1 5am Chief Complaint Admit Date genital lesion December 15, 2024 1:55p m LABS February 03, 2025 10:1 5am LABS April 01, 2025 9:41am LABS April 05, 2025 11:02am INT LAB ORDER April 12, 2025 4:38pm Reason for Visit Admit Date Inclusion cyst December 15, 2024 1:55p m Possible exposure to STI December 15, 2024 1:55pm Additional Source Comments INFORMATION SOURCE (unrecogn ized section and content) DATE CREATED AUTHOR 01/06/2018 [facility] DATE CREATED AUTHOR AUTHOR'S ORGANIZ ATION 01/19/2018 [facility] DATE CREATED AUTHOR AUTHOR'S ORGANIZ ATION 03/16/2022 [facility] DATE CREATED AUTHOR AUTHOR'S ORGANIZ ATION 02/21/2023 [facility] DATE CREATED AUTHOR AUTHOR'S ORGANIZ ATION 02/21/2023 [facility] DATE CREATED AUTHOR AUTHOR'S ORGANIZ ATION 07/06/2023 [facility] DATE CREATED AUTHOR AUTHOR'S ORGANIZ ATION 09/22/2023 [facility] DATE CREATED AUTHOR AUTHOR'S ORGANIZ ATION 02/20/2024 [facility] DATE CREATED AUTHOR AUTHOR'S ORGANIZ ATION 12/18/2024 [facility] DATE CREATED AUTHOR AUTHOR'S ORGANIZ ATION 05/01/2025 [facility] DATE CREATED AUTHOR AUTHOR'S ORGANIZ ATION 05/08/2025 [facility] Reason for Visit (unrecogniz ed section [...] Status: Active Member Role Status Dates Dr. Helga Min MD Primary Care Provider Active Team Status: Active Member Role Status Dates Dr. Helga Min MD Primary Care Provider Active Start: August 17, 2024 Dr. Per Fairchild MD Attending Provider Active Start: August 17, 2024 Team Status: Active Member Role Status Dates Dr. Helga Min MD Primary Care Provider Active Start: 2024 Dr. Per Fairchild MD Attending Provider Active Start: 2024 Team Status: Inactive Member Role Status Dates Dr. Helga Min MD Primary Care Provider Active Start: September 06, 2024 End: September 06, 2024 Kirstie Carter NP, MATERIAL HANDLER FLOORPERSON-C Attending Provider Active Start: September 06, 2024 End: September 06, 2024 Kirstie Carter NP MATERIAL HANDLER FLOORPERSON-C Referring Provider Active Start: September 06, 2024 [...] 15, 2024 End: October 15, 2024 Dr. Helga Min MD Primary Care Provider Active Start: October 15, 2024 End: October 15, 2024 Team Status: Active Member Role Status Dates Dr. Olinda Berrios MD Attending Provider Active Start: October 15, 2024 Dr. Olinda Berrios MD Referring Provider Active Start: October 15, 2024 Dr. Olinda Berrios MD Other Provider Active St art: October 15, 2024 Dr. Helga Min MD Primary Care Provider Active Start: October 15, 2024 Team Status: Inactive Member Role Status Dates Dr. Olinda Berrios MD Attending Provider Active Start: October 26, 2024 End: October 26, 2024 Dr. Helga Min MD Primary Care Provider Active Start: October 26, 2024 End: October 26, 2024 Dr. Helga Min MD Referring Provider Active Start: October 26, 2024 End: October 26, 2024 Team Status: Inactive Member Role Status Dates Dr. Helga Min MD Primary Care Provider Active Start: November 04, 2024 End: November 04, 2024 NEELAM Grove Attending Provider Active Start: November 04, 2024 End: November 04, 2024 Team Status: Inactive Member Role Status Dates Dr. Helga Min MD Primary Care Provider Active Start: November 09, 2024 End: November 09, 2024 Kirstie Carter MATERIAL HANDLER FLOORPERSON, MATERIAL HANDLER FLOORPERSON-C Attending Provider Active Start: November 09, 2024 End: November 09, 2024 Team Status: Inactive Member Role Status Dates Dr. Helga Min MD Primary Care Provider Active Start: November 11, 2024 End: November 11, 2024 Rae Nogueira CNM Attending Provider Active S tart: November 11, 2024 End: November 11, 2024 Team Status: Inactive Member Role Status Dates Dr. Helga Min MD Primary Care Provider Active Start: November 18, 2024 End: November 18, 2024 Rae Nogueira CNM Attending Provider Active S tart: November 18, 2024 End: November 18, 2024 Rae Nogueira CNM Referring Provider Active S tart: November 18, 2024 End: November 18, 2024 Team Status: Active Member Role Status Dates Dr. Helga Min MD Primary Care Provider Active Start: November 22, 2024 Rae Nogueira CNM Attending Provider Active S tart: November 22, 2024 Rae Nogueira CNM Referring Provider Active S tart: November 22, 2024 Ski Patrol Director Relationship Specialty Start Date End Date Spring, Katrin Hernandez SPOUT POSITIONER PCP - General Nurse Practitioner 05/07/19 Ski Patrol Director Relationship Specialty Start Date End Date Spring, Katrin Hernandez SPOUT POSITIONER PCP - General Nurse Practitioner 05/07/19 Ski Patrol Director Relationship Specialty Start Date End Date Silvano Grace MD [address] [place] [id number] PCP - General Family Medicine 10/29/22 Ski Patrol Director Relationship Specialty Start Date End Date Silvano Grace MD [address] [place] [address] PCP - General Family Medicine 10/29/22 Ski Patrol Director Relationship Specialty Start Date End Date Silvano Grace MD [address] [address] PCP - General Family Medicine 10/29/22 Ski Patrol Director Relationship Specialty Start Date End Date Silvano Grace MD [address] [address] PCP - General Family Medicine 10/29/22 Ski Patrol Director Relationship Specialty Start Date End Date Silvano Grace MD [address] [place] [id number] PCP - General Family Medicine 10/29/22 Ski Patrol Director Relationship Specialty Start Date End Date Silvano Grace MD [facility] [place] [id number] PCP - General Family Medicine 10/29/22 Ski Patrol Director Relationship Specialty Start Date End Date Silvano Grace MD [address] [address] PCP - General Family Medicine 10/29/22 Ski Patrol Director Relationship Specialty Start Date End Date Silvano Grace MD [address] [address] PCP - General Family Medicine 10/29/22 Ski Patrol Director Relationship Specialty Start Date End Date Silvano Grace MD [address] [address] PCP - General Family Medicine 10/29/22 Dell Wiggins PA-C [address] [place] [id number] Physician International Recruiter Physician International Recruiter 12/18/23 Team Status: Inactive Member Role Status Dates Dr. Helga Min MD Primary Care Provider Active Start: July 01, 2024 End: July 01, 2024 SARAH Packer Attending Provider Active Start: July 01, 2024 End: July 01, 2024 SARAH Packer Referring Provider Active Start: July 01, 2024 End: July 01, 2024 Team Status: Inactive Member Role Status Dates Dr. Helga Min MD Primary Care Provider Active Start: November 22, 2024 End: November 22, 2024 Rae Nogueira CNM Attending Provider Active S tart: November 22, 2024 End: November 22, 2024 Rae Nogueira CNM Referring Provider Active S tart: November 22, 2024 End: November 22, 2024 Team Status: Inactive Member Role Status Dates Dr. Helga Min MD Primary Care Provider Active Start: December 01, 2024 End: December 01, 2024 Dr. Helga Min MD Referring Provider Active Start: December 01, 2024 End: December 01, 2024 Dr. Imelda Metzger DO Attending Provider Activ e Start: December 01, 2024 End: December 01, 2024 Team Status: Inactive Member Role Status Dates Dr. Helga Min MD Primary Care Provider Active Start: December 01, 2024 End: December 01, 2024 Dr. Imelda Metzger DO Attending Provider Activ e Start: December 01, 2024 End: December 01, 2024 Team Status: Inactive Member Role Status Dates Dr. Helga Min MD Primary Care Provider Active Start: December 08, 2024 End: December 08, 2024 Dr. Imelda Metzger DO Attending Provider Activ e Start: December 08, 2024 End: December 08, 2024 Dr. Imelda Metzger DO Referring Provider Activ e Start: December 08, 2024 End: December 08, 2024 Team Status: Active Member Role Status Dates Dr. Helga Min MD Primary Care Provider Active Start: December 10, 2024 Dr. Per Fairchild MD Attending Provider Active Start: December 10, 2024 Team Status: Inactive Member Role Status Dates Dr. Helga Min MD Primary Care Provider Active Start: December 15, 2024 End: December 15, 2024 Dr. Helga Min MD Referring Provider Active Start: December 15, 2024 End: December 15, 2024 NEELAM Grove Attending Provider Active Start: December 15, 2024 End: December 15, 2024 Team Status: Active Member Role Status Dates Dr. Helga Min MD Primary Care Provider Active Start: December 15, 2024 NEELAM Grove Attending Provider Active Start: December 15, 2024 NEELAM Grove Referring Provider Active Start: December 15, 2024 Team Status: Inactive Member Role Status Dates Dr. Helga Min MD Primary Care Provider Active Start: December 15, 2024 End: December 15, 2024 NEELAM Grove Attending Provider Active Start: December 15, 2024 End: December 15, 2024 NEELAM Grove Referring Provider Active Start: December 15, 2024 End: December 15, 2024 Team Status: Active Member Role/Relationship Status Dates Dr. Helga Min MD Primary Care Provider Active Team [...] 15, 2024 End: October 15, 2024 Dr. Helga Min MD Primary Care Provider Active Start: October 15, 2024 End: October 15, 2024 Team Status: Active Member Role/Relationship Status Dates Dr. Olinda Berrios MD Attending Provider Active Start: October 15, 2024 Dr. Olinda Berrios MD Referring Provider Active Start: October 15, 2024 Dr. Olinda Berrios MD Other Provider Active St art: October 15, 2024 Dr. Helga Min MD Primary Care Provider Active Start: October 15, 2024 Team Status: Inactive Member Role/Relationship Status Dates Dr. Olinda Berrios MD Attending Provider Active Start: October 26, 2024 End: October 26, 2024 Dr. Helga Min MD Primary Care Provider Active Start: October 26, 2024 End: October 26, 2024 Dr. Helga Min MD Referring Provider Active Start: October 26, 2024 End: October 26, 2024 Team Status: Inactive Member Role/Relationship Status Dates Dr. Helga Min MD Primary Care Provider Active Start: November 04, 2024 End: November 04, 2024 Margaret Santizo NP-C Attending Provider Active Start: November 04, 2024 End: November 04, 2024 Team Status: Inactive Member Role/Relationship Status Dates Dr. Helga Min MD Primary Care Provider Active Start: November 09, 2024 End: November 09, 2024 Kirstie Carter NP, [employer]-C Attending Provider Active Start: November 09, 2024 End: November 09, 2024 Team Status: Inactive Member Role/Relationship Status Dates Dr. Helga Min MD Primary Care Provider Active Start: November 11, 2024 End: November 11, 2024 Rae Nogueira CNM Attending Provider Active S tart: November 11, 2024 End: November 11, 2024 Team Status: Inactive Member Role/Relationship Status Dates Dr. Helga Min MD Primary Care Provider Active Start: November 18, 2024 End: November 18, 2024 Rae Nogueira CNM Attending Provider Active S tart: November 18, 2024 End: November 18, 2024 Rae Nogueira CNM Referring Provider Active S tart: November 18, 2024 End: November 18, 2024 Team Status: Inactive Member Role/Relationship Status Dates Dr. Helga Min MD Primary Care Provider Active Start: November 22, 2024 End: November 22, 2024 Rae Nogueira CNM Attending Provider Active S tart: November 22, 2024 End: November 22, 2024 Rae Nogueira CNM Referring Provider Active S tart: November 22, 2024 End: November 22, 2024 Team Status: Inactive Member Role/Relationship Status Dates Dr. Helga Min MD Primary Care Provider Active Start: December 01, 2024 End: December 01, 2024 Dr. Helga Min MD Referring Provider Active Start: December 01, 2024 End: December 01, 2024 Dr. Imelda Metzger DO Attending Provider Activ e Start: December 01, 2024 End: December 01, 2024 Team Status: Inactive Member Role/Relationship Status Dates Dr. Helga Min MD Primary Care Provider Active Start: December 01, 2024 End: December 01, 2024 Dr. Imelda Metzger DO Attending Provider Activ e Start: December 01, 2024 End: December 01, 2024 Team Status: Inactive Member Role/Relationship Status Dates Dr. Helga Min MD Primary Care Provider Active Start: December 08, 2024 End: December 08, 2024 Dr. Imelda Metzger DO Attending Provider Activ e Start: December 08, 2024 End: December 08, 2024 Dr. Imelda Metzger DO Referring Provider Activ e Start: December 08, 2024 End: December 08, 2024 Team Status: Active Member Role/Relationship Status Dates Dr. Helga Min MD Primary Care Provider Active Start: December 10, 2024 Dr. Per Fairchild MD Attending Provider Active Start: December 10, 2024 Team Status: Inactive Member Role/Relationship Status Dates Dr. Helga Min MD Primary Care Provider Active Start: December 15, 2024 End: December 15, 2024 Dr. Helga Min MD Referring Provider Active Start: December 15, 2024 End: December 15, 2024 NEELAM Grove Attending Provider Active Start: December 15, 2024 End: December 15, 2024 Team Status: Inactive Member Role/Relationship Status Dates Dr. Helga Min MD Primary Care Provider Active Start: December 15, 2024 End: December 15, 2024 NEELAM Grove Attending Provider Active Start: December 15, 2024 End: December 15, 2024 NEELAM Grove Referring Provider Active Start: December 15, 2024 End: December 15, 2024 Team Status: Inactive Member Role/Relationship Status Dates Dr. Helga Min MD Primary Care Provider Active Start: January 26, 2025 End: January 26, 2025 SARAH Smith Attending Provider Active Star t: January 26, 2025 End: January 26, 2025 SARAH Smith Referring Provider Active Star t: January 26, 2025 End: January 26, 2025 Team Status: Inactive Member Role/Relationship Status Dates Dr. Helga Min MD Primary Care Provider Active Start: February 03, 2025 End: February 03, 2025 NEELAM Grove Attending Provider Active Start: February 03, 2025 End: February 03, 2025 Team Status: Active Member Role/Relationship Status Dates Dr. Helga Min MD Primary care physician Active Team Status: Inactive Member Role/Relationship Status Dates Dr. Helga Min MD Primary care physician Active Start: December 15, 2024 End: December 15, 2024 Dr. Helga Min MD Referring Provider Active Start: December 15, 2024 End: December 15, 2024 NEELAM Grove Attending physician Active Start: December 15, 2024 End: December 15, 2024 Team Status: Inactive Member Role/Relationship Status Dates Dr. Helga Min MD Primary care physician Active Start: December 15, 2024 End: December 15, 2024 NEELAM Grove Attending physician Active Start: December 15, 2024 End: December 15, 2024 NEELAM Grove Referring Provider Active Start: December 15, 2024 End: December 15, 2024 Team Status: Inactive Member Role/Relationship Status Dates Dr. Helga Min MD Primary care physician Active Start: January 26, 2025 End: January 26, 2025 SARAH Smith Attending physician Active Sta rt: January 26, 2025 End: January 26, 2025 SARAH Smith Referring Provider Active Star t: January 26, 2025 End: January 26, 2025 Team Status: Inactive Member Role/Relationship Status Dates Dr. Helga Min MD Primary care physician Active Start: February 03, 2025 End: February 03, 2025 NEELAM Grove Attending physician Active Start: February 03, 2025 End: February 03, 2025 Team Status: Inactive Member Role/Relationship Status Dates Dr. Helga Min MD Primary care physician Active Start: April 01, 2025 End: April 01, 2025 Rae Nogueira CNM Attending physician Active Start: April 01, 2025 End: April 01, 2025 Team Status: Active Member Role/Relationship Status Dates Dr. Helga Min MD Primary care physician Active Start: April 03, 2025 Rae Nogueira CNM Attending physician Active Start: April 03, 2025 Rae Nogueira CNM Referring Provider Active S tart: April 03, 2025 Team Status: Active Member Role/Relationship Status Dates Dr. Helga Min MD Primary care physician Active Start: April 05, 2025 Rae Nogueira CNM Attending physician Active Start: April 05, 2025 Team Status: Active Member Role/Relationship Status Dates Dr. Helga Min MD Primary care physician Active Start: April 12, 2025 Dr. Gabriella Xiao MD Attending physician Active Start: April 12, 2025 Dr. Gabriella Xiao MD Referring Provider Active Start: April 12, 2025 Goals (unrecognized section and content) Goals may be documented in a n alternate section FOR RECORDS PERTAINING TO PATIENTS WHO ARE [...] BE BASED ON THE PRIMARY CLINICAL RECORDS. [employer] provides no warranty or guarantee of the accuracy or completeness of information in this document.
[2025-05-12 07:08] LABS: Chlamydia By Nucleic Acid AMP Negative (Negative); Gonococcus By Nucleic Acid AMP Negative (Negative)
== END | disposition home or self-care (01) ==
LOC: LABSPEC 12:22
PROVIDERS: PCP Internal Medicine; Referring Provider Obstetrics & Gynecology; Visit Provider Obstetrics & Gynecology
DX: O09.90 Supervision of high risk pregnancy, unspecified, unspecified trimester (principal); Z3A.00 Weeks of gestation of pregnancy not specified
CPT/HCPCS: 87086; 87088; 87491; 87591

== ENCOUNTER → 2025-05-12 | Outpatient (CLI) | payer OTHER, SELFPAY ==
[2025-05-12 18:12] LABS: Hematocrit 37.5 % (37-47); Hemoglobin 12.7 g/dL (12.0-15.0); Immature Granulocytes Count 0.040 X10^3/uL (0.0-0.0); Mean Corp Hgb Conc 33.9 g/dL (32-36); Mean Corpuscular Volume 86.0 fL (81-99); Mean Platelet Vol. 9.8 fl (6.2-12.0); NRBC Flagged by Analyzer 0 % (0-5); Platelet Count 317 K/mm3 (150-450); RBC Distribution Width CV 12.6 % (11.6-14.6); RBC Distribution Width SD 39.6 fl (35.1-43.9); Red Blood Count 4.36 M/mm3 (4.2-5.4); White Blood Count 9.9 K/mm3 (4.4-11.0)
[2025-05-12 19:15] LABS: HIV Nonreactive (Nonreactive); Hepatitis B Surface Antigen Nonreactive (Nonreactive); Hepatitis C Antibody Nonreactive (Nonreactive); Syphilis Antibodies Nonreactive (Nonreactive)
== END | disposition home or self-care (01) ==
PROVIDERS: PCP Internal Medicine; Visit Provider Obstetrics & Gynecology
DX: O09.90 Supervision of high risk pregnancy, unspecified, unspecified trimester (principal); Z3A.00 Weeks of gestation of pregnancy not specified
CPT/HCPCS: 36415; 85025; 86703; 86762; 86780; 86803; 86850; 86900; 86901; 87340